=== PATIENT | male | born 1990 | race Native Hawaiian/Other Pacific Islander ===

== ENCOUNTER 2016-08-25 11:17 | Day surgery (SDC) | payer OTHER ==
[2016-08-24 17:49] VITALS: BMI 26.2
[2016-08-25] MEDS ORDERED: HEPARIN NA (PORCINE) 5,000 UNITS/ML 1ML VIAL ONE (12:16)
[2016-08-25] MEDS ORDERED: LIDOCAINE HCL 1%, 10 MG/ML (20ML VIAL) ONE (12:17)
[2016-08-25] MEDS ORDERED: MIDAZOLAM HCL 2 MG/2 ML SINGLE DOSE VIAL ONE ×2 (13:04→13:17)
[2016-08-25] MEDS ORDERED: ONDANSETRON 4 MG/2 ML VIAL IVPUSH PRN (13:17)
[2016-08-25] MEDS ORDERED: ceFAZolin SODIUM 1 GM VIAL IVPB ONE (13:30)
[2016-08-25] MEDS ORDERED: ceFAZolin SODIUM 1 GM VIAL ONE (13:39)
[2016-08-25] MEDS ORDERED: HEPARIN NA (PORCINE) 5,000 UNITS/ML 1ML VIAL SQ ONE (13:44)
[2016-08-25] MEDS ORDERED: LIDOCAINE HCL 1%, 10 MG/ML (20ML VIAL) IJ ONE ×2 (13:44)
--- NOTE | 2016-08-25 14:25 | HP ---
Admitting History and Physical - Admission Chief Complaint: Dermatomyofibrosis needing IVIG - Past Medical History Infectious Disease: Yes: HIV - Smoking History Smoking history: Never smoked Have you smoked in the past 12 months: No - Alcohol/Substance Use Hx Alcohol Use: No Home Medications - Allergies Allergies/Adverse Reactions: Allergies Allergy/AdvReac Type Severity Reaction Status Date / Time No Known Allergies Allergy Verified 08/23/16 12:41 - Home Medications Home Medications: Ambulatory Orders Emtricita/Rilpivirine/Tenof Df [Complera Tablet] 1 tab PO DAILY 08/23/16 Hpr Plus Hydrogel Kit 800 units TD ASDIR 08/23/16 Prednisone [Deltasone -] 20 mg PO DAILY 08/23/16 Methotrexate Sodium [Methotrexate] 20 mg PO WEEKLY 08/24/16 Physical Examination Vital Signs: Vital Signs Temperature 97.8 F 08/25/16 11:46 Pulse Rate 89 08/25/16 11:46 Respiratory Rate 20 08/25/16 11:46 Blood Pressure 137/79 08/25/16 11:46 O2 Sat by Pulse Oximetry (%) 98 08/25/16 11:46 Constitutional: Yes: Well Nourished Eyes: Yes: WNL HENT: Yes: WNL Neck: Yes: WNL Cardiovascular: Yes: WNL Respiratory: Yes: WNL Gastrointestinal: Yes: WNL ...Rectal Exam: Yes: WNL Assessment/Plan Dermatomyofibrosis 1. Pt needs port for IVIG
--- NOTE | 2016-08-25 14:31 | OP ---
Operative Note - Note: Operative Date: 08/25/16 Pre-Operative Diagnosis: Dermatomyositis Operation: Insertion of portacath Post-Operative Diagnosis: Same as Pre-op Surgeon: Aayush Hinds Anesthesia: Fractional Estimated Blood Loss (mls): 20 Operative Report Dictated: Yes
[2016-08-25 14:48] VITALS: TEMP 98.5
[2016-08-25 16:20] VITALS: BP 144/70; PULSE 87
== END 2016-08-25 16:21 | disposition home or self-care (01) ==
LOC: JASU-SURG 11:17
PROVIDERS: ATTEND Surgery Vascular Surgery
PROC: B214YZZ Fluoroscopy of Right Heart using Other Contrast (ICD-10-PCS; 2016-08-25)
PROC: 02H633Z Insertion of Infusion Device into Right Atrium, Percutaneous Approach (ICD-10-PCS; principal; 2016-08-25 13:30)
DX: 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, unspecified, organ involvement unspecified (principal)
CPT/HCPCS: 36558; 77001; C1751; 71010-TC; 76000-TC; 94760; J1644

== ENCOUNTER 2016-09-21 13:37 | Day surgery (SDC) | payer OTHER ==
[2016-09-21] MEDS ORDERED: diphenhydrAMINE HCL 25 MG CAPSULE (FP) PO ONE (15:00)
[2016-09-21] MEDS ORDERED: methylPREDNISolone NA SUCC 125 MG/2 ML VIAL IVPB ONE (15:00)
[2016-09-21] MEDS ORDERED: ACETAMINOPHEN 500 MG TABLET (FP) PO ONE (15:00)
[2016-09-21] MEDS ORDERED: RITUXIMAB 1,000 MG in DEXTROSE 5%-WATER - 400 ML IVPB ONE (15:30)
[2016-09-21 15:31] LABS: BASOPHIL 1.4 % (0-2.0); EOSINOPHIL 2.9 % (0-4.5); MCH 28.1 pg (25.7-33.7); MCHC 33.7 g/dl (32.0-35.9); MEAN CELL VOLUME 83.4 fl (80-96); MEAN PLT VOLUME 9.2 fl (7.5-11.1); NEUTROPHILS 75.5 % (42.8-82.8); PLATELET COUNT 195 K/MM3 (134-434); RDW 13.5 % (11.9-15.9); WHITE BLOOD COUNT 8.8 K/mm3 (4.0-10.0)
[2016-09-21 16:58] LABS: ALK PHOS 80 U/L (45-117); BILIRUBIN,TOTAL 0.4 mg/dL (0.2-1.0); CALCIUM 8.9 mg/dL (8.5-10.1); SGOT/AST 391 U/L (15-37); SGPT/ALT 240 U/L (12-78)
[2016-09-21 17:03] VITALS: BMI 25.7
[2016-09-21 20:18] VITALS: BP 136/76; PULSE 101; TEMP 98.9
[2016-09-21 21:01] LABS: ALBUMIN 3.6 g/dl (3.4-5.0); ANION GAP 13 (8-16); CO2 23 mmol/L (21-32); CREATININE 0.7 mg/dL (0.7-1.3); GLUCOSE,RANDOM 85 mg/dL (74-106); MAGNESIUM 2.3 mg/dL (1.8-2.4)
== END 2016-09-21 21:30 | disposition home or self-care (01) ==
LOC: JINFUSION 13:37 → J7W 13:38 → JINFUSION 21:30
PROVIDERS: ATTEND Internal Medicine Rheumatology
DX: M33.92 Dermatopolymyositis, unspecified with myopathy (principal)
CPT/HCPCS: 96413; 96415; J9310; 36415; 80053; 83735; 84134; 85025; 96367

== ENCOUNTER 2016-10-08 09:17 | Day surgery (SDC) | payer OTHER ==
[2016-10-08] MEDS ORDERED: ACETAMINOPHEN 500 MG TABLET (FP) PO ONE (10:30)
[2016-10-08] MEDS ORDERED: diphenhydrAMINE HCL 25 MG CAPSULE (FP) PO ONE (10:30)
[2016-10-08] MEDS ORDERED: methylPREDNISolone NA SUCC 125 MG/2 ML VIAL IVPB ONE (10:30)
[2016-10-08] MEDS ORDERED: RITUXIMAB 1,000 MG in DEXTROSE 5%-WATER - 400 ML IVPB ONE (11:00)
[2016-10-08 15:21] VITALS: BP 134/67; PULSE 83; TEMP 98.6
== END 2016-10-08 15:24 | disposition home or self-care (01) ==
LOC: JINFUSION 09:17 → J7W 09:18 → JINFUSION 15:24
PROVIDERS: ATTEND Internal Medicine Rheumatology
DX: M33.92 Dermatopolymyositis, unspecified with myopathy (principal)
CPT/HCPCS: 96367; 96413; 96415; J9310

== ENCOUNTER 2017-04-07 07:12 | Day surgery (SDC) | payer OTHER ==
[2017-04-07] MEDS ORDERED: diphenhydrAMINE HCL 25 MG CAPSULE (FP) PO ONE (09:15)
[2017-04-07] MEDS ORDERED: ACETAMINOPHEN 500 MG TABLET (FP) PO ONE ×2 (09:15)
[2017-04-07] MEDS ORDERED: methylPREDNISolone NA SUCC 125 MG/2 ML VIAL IVPUSH ONE (09:15)
[2017-04-07] MEDS ORDERED: RITUXIMAB 1,000 MG in DEXTROSE 5%-WATER - 400 ML IVPB ONE (10:00)
[2017-04-07] MEDS ORDERED: PORTA CATH FLUSH 10 ML IVPUSH PRN (15:28)
[2017-04-07 15:41] VITALS: BP 127/86; PULSE 104
[2017-04-07 16:35] VITALS: TEMP 98
== END 2017-04-07 14:30 | disposition home or self-care (01) ==
LOC: JCHEMO 07:12 → J7W 07:13 → JCHEMO 14:30
PROVIDERS: ATTEND Internal Medicine Rheumatology
DX: M33.92 Dermatopolymyositis, unspecified with myopathy (principal)
CPT/HCPCS: 96367; 96375; 96413; 96415; J9310

== ENCOUNTER 2017-04-21 07:05 | Day surgery (SDC) | payer OTHER ==
[2017-04-21 07:59] LABS: BASOPHIL 1.1 % (0-2.0); EOSINOPHIL 2.6 % (0-4.5); MCH 28.8 pg (25.7-33.7); MCHC 34.3 g/dl (32.0-35.9); MEAN CELL VOLUME 84.1 fl (80-96); MEAN PLT VOLUME 8.4 fl (7.5-11.1); NEUTROPHILS 72.1 % (42.8-82.8); PLATELET COUNT 190 K/MM3 (134-434); RDW 13.2 % (11.9-15.9); WHITE BLOOD COUNT 7.4 K/mm3 (4.0-10.0)
[2017-04-21 08:06] VITALS: TEMP 98.1
[2017-04-21] MEDS ORDERED: ACETAMINOPHEN 500 MG TABLET (FP) PO ONE ×2 (08:15→10:00)
[2017-04-21] MEDS ORDERED: diphenhydrAMINE HCL 25 MG CAPSULE (FP) PO ONE (08:15)
[2017-04-21] MEDS ORDERED: methylPREDNISolone NA SUCC 125 MG/2 ML VIAL IVPB ONE (08:15)
[2017-04-21 08:24] LABS: ALBUMIN 3.6 g/dl (3.4-5.0); ANION GAP 6 (8-16); BILIRUBIN,TOTAL 0.2 mg/dL (0.2-1.0); CALCIUM 8.2 mg/dL (8.5-10.1); CO2 27 mmol/L (21-32); CREATININE 0.8 mg/dL (0.7-1.3); GLUCOSE,RANDOM 99 mg/dL (74-106); MAGNESIUM 2.6 mg/dL (1.8-2.4); SGOT/AST 21 U/L (15-37); SGPT/ALT 38 U/L (12-78); TOT PROT 7.3 g/dl (6.4-8.2)
[2017-04-21 08:26] LABS: ALK PHOS 72 U/L (45-117)
[2017-04-21] MEDS ORDERED: RITUXIMAB 1,000 MG in DEXTROSE 5%-WATER - 400 ML IVPB ONE (09:00)
[2017-04-21] MEDS ORDERED: ACETAMINOPHEN 325 MG TABLET (FP) ONE (09:13)
[2017-04-21] MEDS ORDERED: PORTA CATH FLUSH 10 ML IVPUSH PRN (10:14)
[2017-04-21 14:54] VITALS: BP 148/88; PULSE 107
== END 2017-04-21 12:50 | disposition home or self-care (01) ==
LOC: J7W 07:05 → JCHEMO 07:05
PROVIDERS: ATTEND Internal Medicine Rheumatology
DX: M33.92 Dermatopolymyositis, unspecified with myopathy (principal)
CPT/HCPCS: 36415; 80053; 83735; 84134; 85025; 96367; 96375; 96413; 96415; J9310

== ENCOUNTER 2017-12-30 09:14 | Day surgery (SDC) | payer OTHER ==
[2017-12-30 10:22] LABS: HEMATOCRIT 44.5 % (35.4-49); HEMOGLOBIN 14.8 GM/dL (11.7-16.9); MCH 27.6 pg (25.7-33.7); MCHC 33.2 g/dl (32.0-35.9); MEAN CELL VOLUME 83.2 fl (80-96); MEAN PLT VOLUME 9.3 fl (7.5-11.1); PLATELET COUNT 195 K/MM3 (134-434); RBC 5.35 M/mm3 (4.00-5.60); RDW 13.1 % (11.9-15.9); WHITE BLOOD COUNT 5.3 K/mm3 (4.0-10.0)
[2017-12-30 10:49] LABS: ALBUMIN 3.5 g/dl (3.4-5.0); ALK PHOS 76 U/L (45-117); ANION GAP 11 (8-16); BILIRUBIN,TOTAL 0.3 mg/dL (0.2-1.0); BLOOD UREA NITROGEN 13 mg/dL (7-18); CALCIUM 7.6 mg/dL (8.5-10.1); CHLORIDE 109 mmol/L (98-107); CO2 24 mmol/L (21-32); CREATININE 0.7 mg/dL (0.7-1.3); GLUCOSE,RANDOM 106 mg/dL (74-106); POTASSIUM 3.8 mmol/L (3.5-5.1); SGOT/AST 26 U/L (15-37); SGPT/ALT 41 U/L (12-78); SODIUM 144 mmol/L (136-145); TOT PROT 6.8 g/dl (6.4-8.2)
[2017-12-30] MEDS ORDERED: diphenhydrAMINE HCL 25 MG CAPSULE (FP) PO ONE (11:00)
[2017-12-30] MEDS ORDERED: ACETAMINOPHEN 500 MG TABLET (FP) PO ONE (11:00)
[2017-12-30] MEDS ORDERED: methylPREDNISolone NA SUCC 125 MG/2 ML VIAL IVPB ONE (11:00)
[2017-12-30] MEDS ORDERED: PORTA CATH FLUSH 10 ML IVPUSH ONE (11:21)
[2017-12-30] MEDS ORDERED: RITUXIMAB 1,000 MG in DEXTROSE 5%-WATER - 400 ML IVPB ONE (11:30)
[2017-12-30] MEDS ORDERED: methylPREDNISolone NA SUCC 125 MG/2 ML VIAL IVPUSH ONE (15:15)
[2017-12-30 17:12] VITALS: BP 117/67; PULSE 94; TEMP 98.2
== END 2017-12-30 17:20 | disposition home or self-care (01) ==
LOC: JCHEMO 09:14 → J7W 09:19 → JCHEMO 17:20
PROVIDERS: ATTEND Internal Medicine Rheumatology
DX: M33.92 Dermatopolymyositis, unspecified with myopathy (principal)
CPT/HCPCS: 36415; 80053; 85027; 96375; 96413; 96415; J9310

== ENCOUNTER 2018-08-04 08:51 | Day surgery (SDC) | payer OTHER ==
[2018-08-04] MEDS ORDERED: ACETAMINOPHEN 500 MG TABLET (FP) PO ONE (09:15)
[2018-08-04] MEDS ORDERED: methylPREDNISolone NA SUCC 125 MG/2 ML VIAL IVPB ONE (09:15)
[2018-08-04] MEDS ORDERED: diphenhydrAMINE HCL 25 MG CAPSULE (FP) PO ONE (09:15)
[2018-08-04 09:55] LABS: BASO % 1.2 % (0-2.0); EOS % 4.8 % (0-4.5); HEMATOCRIT 42.6 % (35.4-49); HEMOGLOBIN 14.4 GM/dL (11.7-16.9); LYMPH % 19.9 % (8-40); MCH 28.2 pg (25.7-33.7); MCHC 33.8 g/dl (32.0-35.9); MEAN CELL VOLUME 83.5 fl (80-96); MEAN PLT VOLUME 9.1 fl (7.5-11.1); MONO % 14.2 % (3.8-10.2); NEUT % 59.9 % (42.8-82.8); PLATELET COUNT 188 K/MM3 (134-434); RDW 14.4 % (11.9-15.9); WHITE BLOOD COUNT 4.8 K/mm3 (4.0-10.0)
[2018-08-04] MEDS ORDERED: RITUXIMAB 1,000 MG in DEXTROSE 5%-WATER - 400 ML IVPB ONE (10:00)
[2018-08-04 10:25] LABS: ALK PHOS 94 U/L (45-117); ANION GAP 5 MMOL/L (8-16); BILIRUBIN,TOTAL 0.4 mg/dL (0.2-1); BLOOD UREA NITROGEN 14 mg/dL (7-18); CALCIUM 8.6 mg/dL (8.5-10.1); CHLORIDE 106 mmol/L (98-107); CO2 28 mmol/L (21-32); CREATININE 0.7 mg/dL (0.55-1.3); GLUCOSE,RANDOM 101 mg/dL (74-106); MAGNESIUM 2.4 mg/dL (1.8-2.4); POTASSIUM 4.1 mmol/L (3.5-5.1); PREALBUMIN 29.7 mg/dl (20-40); SGOT/AST 24 U/L (15-37); SGPT/ALT 35 U/L (13-61); SODIUM 139 mmol/L (136-145); TOT PROT 7.4 g/dl (6.4-8.2)
[2018-08-04] MEDS ORDERED: PORTA CATH FLUSH 10 ML IVPUSH ONE ×2 (11:37→17:15)
[2018-08-04] MEDS ORDERED: methylPREDNISolone NA SUCC 125 MG/2 ML VIAL IVPUSH ONE (12:15)
[2018-08-04] MEDS ORDERED: SODIUM CHLORIDE 500 ML IV ONE ×2 (12:15→13:00)
[2018-08-04 17:23] VITALS: BP 134/75; PULSE 113; TEMP 98.5
[2018-08-04] MEDS ORDERED: FAMOTIDINE 20 MG/50 ML IVPB 20 MG/50 ML MG IVPB SCH (22:00)
== END 2018-08-04 19:05 | disposition home or self-care (01) ==
LOC: JCHEMO 08:51 → J7W 08:52 → JCHEMO 19:05
PROVIDERS: ATTEND Internal Medicine Rheumatology
DX: M33.92 Dermatopolymyositis, unspecified with myopathy (principal)
CPT/HCPCS: 36415; 80053; 83735; 84134; 85025; 96375; 96413; 96415; J9312

== ENCOUNTER 2018-08-18 09:20 | Day surgery (SDC) | payer OTHER ==
[~2018-08-18 09:20] MED LIST: ACETAMINOPHEN 500 MG TABLET (FP) PO ONE; DEXAMETHASONE SODIUM PHOSPHATE 20 MG, DIPHENHYDRAMINE 50 MG in SODIUM CHLORIDE 100 ML IVPB ONE
[2018-08-18] MEDS ORDERED: RITUXIMAB 1,000 MG in DEXTROSE 5%-WATER - 400 ML IVPB ONE (09:30)
[2018-08-18 17:30] VITALS: BP 136/69; PULSE 101; TEMP 97.8
== END 2018-08-18 16:30 | disposition home or self-care (01) ==
LOC: JCHEMO 09:20 → J7W 09:21 → JCHEMO 16:30
PROVIDERS: ATTEND Internal Medicine Rheumatology
DX: M33.92 Dermatopolymyositis, unspecified with myopathy (principal)
CPT/HCPCS: 96361; 96367; 96375; 96413; 96415; J9312

== ENCOUNTER 2019-03-02 09:00 | Day surgery (SDC) | payer OTHER ==
[2019-03-02] MEDS ORDERED: ACETAMINOPHEN 500 MG TABLET (FP) PO ONE (10:00)
[2019-03-02 10:13] LABS: HEMOGLOBIN 13.4 GM/dL (11.7-16.9); MCH 28.6 pg (25.7-33.7); MEAN PLT VOLUME 9.1 fl (7.5-11.1); RBC 4.68 M/mm3 (4.00-5.60)
[2019-03-02 10:15] LABS: BASO % 0.6 % (0-2.0); EOS % 2.8 % (0-4.5); HEMATOCRIT 39.6 % (35.4-49); LYMPH % 19.2 % (8-40); MCHC 33.8 g/dl (32.0-35.9); MEAN CELL VOLUME 84.7 fl (80-96); MONO % 8.7 % (3.8-10.2); NEUT % 68.7 % (42.8-82.8); PLATELET COUNT 189 K/MM3 (134-434); RDW 13.8 % (11.9-15.9); WHITE BLOOD COUNT 4.7 K/mm3 (4.0-10.0)
[2019-03-02] MEDS ORDERED: DEXAMETHASONE INJECTION 20 MG, DIPHENHYDRAMINE 50 MG in SODIUM CHLORIDE 100 ML IVPB ONE (10:30)
[2019-03-02 10:50] LABS: ALBUMIN 3.9 g/dl (3.4-5.0); BILIRUBIN,TOTAL 0.5 mg/dL (0.2-1); BLOOD UREA NITROGEN 13.4 mg/dL (7-18); CALCIUM 8.8 mg/dL (8.5-10.1); CREATININE 0.8 mg/dL (0.55-1.3); MAGNESIUM 2.3 mg/dL (1.8-2.4); POTASSIUM 3.7 mmol/L (3.5-5.1); PREALBUMIN 22.7 mg/dl (20-40); TOT PROT 6.8 g/dl (6.4-8.2)
[2019-03-02] MEDS ORDERED: RITUXIMAB 1,000 MG in DEXTROSE 5%-WATER - 400 ML IVPB ONE (11:00)
[2019-03-02 13:51] VITALS: TEMP 98
[2019-03-02] MEDS ORDERED: PORTA CATH FLUSH 10 ML IVPUSH ONE ×2 (13:52→15:54)
[2019-03-02 15:54] VITALS: BP 140/69; PULSE 90
== END 2019-03-02 16:00 | disposition home or self-care (01) ==
LOC: JCHEMO 09:00 → J7W 09:02 → JCHEMO 16:00
PROVIDERS: ATTEND Internal Medicine Rheumatology
DX: M33.92 Dermatopolymyositis, unspecified with myopathy (principal)
CPT/HCPCS: 36415; 80053; 83735; 84134; 85025; 96367; 96375; 96413; 96415; J9312

== ENCOUNTER 2019-03-19 08:08 | Day surgery (SDC) | payer OTHER ==
[2019-03-19] MEDS ORDERED: ACETAMINOPHEN 500 MG TABLET (FP) PO ONE (09:00)
[2019-03-19] MEDS ORDERED: DEXAMETHASONE INJECTION 20 MG, DIPHENHYDRAMINE 50 MG in SODIUM CHLORIDE 100 ML IVPB ONE (09:00)
[2019-03-19] MEDS ORDERED: RITUXIMAB 1,000 MG in DEXTROSE 5%-WATER - 400 ML IVPB ONE (09:30)
[2019-03-19 09:51] VITALS: TEMP 98.6
[2019-03-19 14:19] VITALS: BP 139/82; PULSE 101
== END 2019-03-19 14:44 | disposition home or self-care (01) ==
LOC: JCHEMO 08:08 → J7W 08:12 → JCHEMO 14:44
PROVIDERS: ATTEND Internal Medicine Rheumatology
DX: M33.92 Dermatopolymyositis, unspecified with myopathy (principal)
CPT/HCPCS: 96367; 96375; 96413; 96415; J1100; J9312

== ENCOUNTER 2020-03-17 08:56 | Day surgery (SDC) | payer OTHER ==
--- OUTSIDE RECORDS SUMMARY | 2020-03-17 09:22 | XMS ---
:1990 Author Organization [facility] Care Team Providers Name Role Phone ArtierubenskieraDiego espino Unavailable Unavailable Dylon Orta Unavailable Unavailable PRAFF, BRUNA Unavailable Unavailable Cherrie Luna Unavailable Unavailable Dorina Graves MD Unavailable Unavailable Maximiliano Graves MD Unavailable Unavailable Maximiilano Graves MD Unavailable Unavailable Maximiliano Graves MD Unavailable Unavailable MD Ebnoy Unavailable Unavailable MD Ebony Unavailable Unavailable MD Ebony Unavailable Unavailable MD Ebony Unavailable Unavailable Eng Unavailable Unavailable Other Unavailable Unavailable Radha JERNIGAN Unavailable Unavailable MD Kalie Unavailable Unavailable MD Joleen Unavailable Unavailable MD Joleen Unavailable Unavailable MD Joleen Unavailable Unavailable MD Joleen Unavailable Unavailable MD Joleen Unavailable Unavailable MD Joleen Unavailable Unavailable MD Joleen Unavailable Unavailable MD Joleen Unavailable Unavailable MD Joleen Unavailable Unavailable MD Joleen Unavailable Unavailable MD Joleen Unavailable Unavailable MD Joleen Unavailable Unavailable MD Joleen Unavailable Unavailable MD Joleen Unavailable Unavailable MD Joleen Unavailable Unavailable MD Tyler Unavailable Unavailable MD Tyler Unavailable Unavailable MD Tyler Unavailable Unavailable MD Tyler Unavailable Unavailable MD Tyler Unavailable Unavailable Re-disclosure Warning The records that you are about to access may contain information from federally- assisted alcohol or drug abuse programs. If such information is present, then the following federally mandated warning applies: This information has been disclosed to you from records protected by federal confidentiality rules (42 CFR part 2). The federal rules prohibit you from making any further disclosure of this information unless further disclosure is expressly permitted by the written consent of the person to whom it pertains or as otherwise permitted by 42 CFR part 2. A general authorization for the release of medical or other information is NOT sufficient for this purpose. The Federal rules restrict any use of the information to criminally investigate or prosecute any alcohol or drug abuse patient.The records that you are about to access may contain highly sensitive health information, the redisclosure of which is protected by Article 27-F of the [facility] Public Health law. If you continue you may haveaccess to information: Regarding HIV / AIDS; Provided by facilities licensed or operated by the [facility] Office of Mental Health; or Provided by the [facility] Office for People With Developmental Disabilities. If such information is present, then the following [facility] mandated warning applies: This information has been disclosed to you from confidential records which are protected by state law. State law prohibits you from making any further disclosure of this information without the specific written consent of the person to whom it pertains, or as otherwise permitted by law. Any unauthorized further disclosure in violation of state law may result in a fine or skilled nursing sentence or both. A general authorization for the release of medical or other information is NOT sufficient authorization for further disclosure. Encounters Encounter Providers Location Date Indications Data Source(s ) Outpatient Attender: Cherrie NUR 03/11/2020 [facility] 04:27:59 PM Hospital EDT Outpatient Attender: Cherrie NUR 03/05/2020 [facility] 10:22:00 AM Hospital EDT Admission cancelled. Disregard status an d admitted date. Outpatient Attender: Cherrie NUR 02/27/2020 09:09:00 AM [facility] EDT - 02/27/2020 Hospital 11:59:00 PM EDT Patient discharged. Outpatient Attender: Cherrie NUR 02/19[facility]2020 [facility]29[facility] 11:59:00 PM EDT Patient discharged. [facility] Hospital 11:59:00 PM EDT Patient discharged. Emergency Attender: Willy ICU-EMERG 02/09/2020 CHEST S - Ne javi Scott MDAttender: 07:02:00 PM EDT HEAVINESS/ARMS AND Lali Doctor Other - 02/09/2020 [facility]GS [facility] Hospital 08:25:00 PM EDT CHEST HEAVINESS/ARMS AND LEGS PAIN Patient discharged. [facility]07[facility]2020 08:50:00 AM [facility] 02/07/2020 Hospital 11:59:00 PM EDT Patient discharged. Outpatient Attender: Cherrie [address] [place] [address] 02/06/2020 08:46:00 AM [facility] Hospital Admission cancelled. Disregard status an d admitted date. Outpatient Attender: Cherrie [address] [place] [address] 01/30/2020 02:50:00 PM [facility] 01/30/2020 Hospital 11:59:00 PM EDT Patient discharged. [facility] 01/22[facility]2020 01:23:06 PM [facility] 01/23/2020 [facility] 11:59:00 PM EDT Patient discharged. [facility]16[facility]2020 08:53:00 [facility] Hospital 11:59:00 PM EDT Patient discharged. Outpatient Attender: Cherrie [address] [place] [address] 01/09/2020 08:49:00 AM [facility] 01/09/2020 Hospital 11:59:00 PM EDT Patient discharged. Outpatient Attender: Cherrie [address] [place] [address] 01/02/2020 09:16:00 AM [facility] - 01/02/2020 Hospital 11:59:00 PM EDT Patient discharged. [facility] 01/01/2020 09:02:00 AM [facility] Hospital Admission cancelled. Disregard status an d admitted date. Outpatient Attender: Cherrie LemusSWICMV 12/24/2019 [facility]11:[facility] [place] [facility] Hospital 11:59:00 PM EDT Patient discharged. [facility] 10[facility]37[facility] - 12/18/2019 Hospital 11:59:00 PM EDT Patient discharged. Outpatient Attender: Cherrie LemusSWICMV 12/04/2019 09:19:00 AM [facility] EDT - 12/04/2019 Hospital 11:59:00 PM EDT Patient discharged. Outpatient Attender: Cherrie LemusSW CL 11/27/2019 09:34:00 AM [facility] EDT - 11/27/2019 Hospital 11:59:00 PM EDT Patient discharged. Outpatient Attender: Sharath LemusMED CL 11/19/2019 10:14:00 AM Shmuel Goodrich MD EDT - 11/19/2019 Hospita l 11:59:00 PM EDT Patient discharged. Emergency Attender: Aaliyah ICU-EMERG 11/11/2019 CHEST DISCOMFORT [facility] EngAttender: Doctor 07:22:00 PM EDT Lali Other - 11/11/2019 Hospital 10:02:00 PM EDT CHEST DISCOMFORT Patient discharged. Outpatient Attender: Sharath LemusLABCLNMV 08/08/2019 02:14:00 [facility] Randy Goodrich MD PM EST - 08/08/2019 Hosp ital 11:59:00 PM EST Patient discharged. Emergency Attender: Dorina ICU-EMERG 08/06/2019 DIZZY/ HEART [facility] Paul Graves MDAttender: 03:39:00 PM EST - PALP R reginaldo Doctor Other 08/06/2019 Hospital 05:12:00 PM EST DIZZY/ HEART PALP Patient discharged. Outpatient Attender: [id number] 07/16/2019 [facility] RERE, 08:33:00 AM EST Health Care RAdmitter: [id number] Radha Spence Outpatient Attender: MAU [facility] LE[facility]N 07:43:00 AM [facility] Outpatient Attender: Sharath Goodrich MD 5T-LABCL 07/05/2019 S - Audi Franks NMV 03:02:00 PM EST - Hospita l 07/05/2019 11:59:00 PM EST Patient discharged. Emergency Attender: Toni ICU-EMERG 07/04/2019 LIGHTHEADED [facility] - Win Beck MDAttender: 09:31:00 PM EST - [place] Doctor Other 07/05/2019 Hospital 01:18:00 AM EST LIGHTHEADED Patient discharged. Outpatient Attender: MAU, [facility]: Dylon ICU-JONY 06/25/2019 PANIC [facility] - Gabbie ShresthaattAttender: RG 11:07:00 AM EST - ATTACK/EM PRE [facility] Doctor Other 06/25/2019 SS 01:45:00 PM EST PANIC ATTACK/EMPRESS Patient discharged. Outpatient Attender: [id number] 06/11/2019 [facility] RERE, 08:24:00 AM [facility] RAdmitter: [id number] CorporRadha Butterfield Outpatient Attender: MD Gallagher ICU-LAB 02/27/2019 S Randy Arthur 04:47:00 PM EDT - Hospita l 02/27/2019 11:59:00 PM EDT Patient discharged. Outpatient Attender: MD Gallagher ICU-LAB 11/28/2018 04:14:00 PM S - Paul Arthur EDT - 11/28/2018 Hospital 11:59:00 PM EDT Patient discharged. Emergency Attender: ICU-EMERG 10/28/2018 HEAD INJURY/EMPRESS S Randy Vela 03:57:00 PM EDT Roch sonam - 10/28/2018 Hospital 06:39:00 PM EDT HEAD INJURY/EMPRESS Immunizations Vaccine Date Status Description Data Source(s) New in 04/21/2017 completed influenza, injectable, quadrivalent On: Site: Entire left upper arm (body structure) Jeanie 2013. 12:00:00 AM Lot #: [id number], [employer] 21-Apr-2017 [facility] IIV4 EDT Comments: Vaccine administered as per dr orders. Pt waited 20 min w/o any s/s of adverse reaction. Vis sheet given to pt advised to return is any s/s of adverse reacton develop. pt verbalized benjamin vasquez pneumococcal 12/30/2014 completed <td><content styleCode="xContentWrapping"><content [facility] polysaccharide 12:00:00 AM [id number]">pneumococcal Health PPV23 EDT polysaccharide PPV23</conten t>
<content styleCode="xLabel System xSecondary">Lot #: </content ><content styleCode="xSecondary">[id number]</content><content styleCode="xSecondary">, [employer]content>
</content ></td><td><content styleCode="xLabel">On: </con tent><content styleCode="xSecondary"></content></td><td><content styleCode="xLabel xSecondary ">Site: </content><content styleCode="xSecondary">Delto id region structure (body structure)</content></td> Medications Medication Brand Start Product Dose Route Administrative Pharmacy [facility] Indications Reaction Description Data Name Date Form Instructions Instructions Source(s) [facility] [id number] active Odefs ey [facility] ne/rilpivir 14850 2019 {tab( Health ine/tenofov 04:56: s)} System ir 11 PM alafenamide EDT 200 mg-25 mg-25 mg oral tablet Check with your doctor before becoming p regnant.Do not take dairy products, antacids, or iron preparations within one hour of this medication.It is very important that you take or use this exactly as directed. D o not skip doses or discontinue unless directed by your doctor.Obtain medical a dvice before taking any non-prescription drugs as some may affect the action of t his medication.Store this medication in the original package.Take with food. Escitalopram escitalopram 08/08/2019 1 [id number] active Escitalopram [facility] 10 MG Oral 10 mg oral 03:54:35 PM {tab(s)} [facility] Tablet tablet EST System escitalopram 10 mg oral tablet Check with your doctor before becoming p regnant.It is very important that you take or use this exactly as directed. Do not sk ip doses or discontinue unless directed by your doctor.May cause drowsiness. Alcoh ol may intensify this effect. Use care when operating dangerous machinery.Obtain med ica advice before taking any non-prescription drugs as some may affec t the action of this medication.This drug may impair the ability to drive or operate [employer]. Use care until you become familiar with its effects. Lorazepam Ativan 08/06/2019 1 {tab(s)} [id number] active Ativan [facility] 0.5 MG Oral 0.5 mg 05:21:03 PM Health Tablet oral EST System [Ativan] tablet Ativan 0.5 mg oral tablet Caution federal law prohibits the transf er of this drug to any person other than the person for whom it was prescribed.Do not take this drug if you are .May cause drowsiness or dizziness. emtricitabine/rilpivirine/tenofovir [id number] 07/06/2019 1 C38 288 active Odefsey [facility] alafenamide 200 mg-25 mg-25 mg oral 02:40:06 PM {tab(s)} Health tablet EST System Check with your doctor before becoming p regnant.Do not take dairy products, antacids, or iron preparations within one hour of this medication.It is very important that you take or use this exactly as directed. D o not skip doses or discontinue unless directed by your doctor.Obtain medical a dvice before taking any non-prescription drugs as some may affect the action of t his medication.Store this medication in the original package.Take with food. emtricitabine/rilpivirine/tenofovir [id number] 07/06/2019 1 C38 288 active Odefsey [facility] alafenamide 200 mg-25 mg-25 mg oral 02:40:06 PM {tab(s)} Health tablet EST System Check with your doctor before becoming p regnant.Do not take dairy products, antacids, or iron preparations within one hour of this medication.It is very important that you take or use this exactly as directed. D o not skip doses or discontinue unless directed by your doctor.Obtain medical a dvice before taking any non-prescription drugs as some may affect the action of t his medication.Store this medication in the original package.Take with food. Meclizine meclizine 07/05/2019 1 [id number] active Meclizine [facility] Hydrochloride 25 mg oral 12:45:25 AM {tab(s)} Hydrochloride Health 25 MG Oral tablet EST System Tablet meclizine 25 mg oral tablet May cause drowsiness. Alcohol may inten sify this effect. Use care when operating dangerous machinery. Meclizine meclizine 07/05/2019 1 [id number] active Meclizine [facility] Hydrochloride 25 mg oral 12:45:25 AM {tab(s)} Hydrochloride Health 25 MG Oral tablet EST System Tablet meclizine 25 mg oral tablet May cause drowsiness. Alcohol may inten sify this effect. Use care when operating dangerous machinery. emtricitabine/rilpivirine/tenofovir [id number] 01/15/2019 1 C38 288 active Odefsey [facility] alafenamide 200 mg-25 mg-25 mg oral 09:02:30 AM {tab(s)} Health tablet EDT System Check with your doctor before becoming p regnant.Do not take dairy products, antacids, or iron preparations within one hour of this medication.It is very important that you take or use this exactly as directed. D o not skip doses or discontinue unless directed by your doctor.Obtain medical a dvice before taking any non-prescription drugs as some may affect the action of t his medication.Store this medication in the original package.Take with food. Ibuprofen IBU 800 10/28/2018 1 {tab(s)} [id number] active IBU [facility] 800 MG Oral mg oral 06:34:48 PM Health Tablet [Ibu] tablet EDT Syste m IBU 800 mg oral tablet Do not take this drug if you are pregnan t.It is very important that you take or use this exactly as directed. Do not skip d oses or discontinue unless directed by your doctor.May cause drowsiness or dizziness .Obtain medical advice before taking any non-prescription drugs as some may affec t the action of this medication.Take with food or milk. emtricitabine 200 MG / Rilpivirine emtricitabine/rilpivirine /tenofovir 06/16/2018 1 [id number] aborted Complera [facility] 25 MG / Tenofovir disoproxil disoproxil 200 mg-25 mg-300 mg oral 05 :15:33 PM {tab(s)} Health fumarate 300 MG Oral Tablet tablet EST System emtricitabine/rilpivirine/tenofovir disoproxil 200 mg-25 mg-300 mg oral tablet Check with your doctor before becoming p regnant.Do not take dairy products, antacids, or iron preparations within one hour of this medication.It is very important that you take or use this exactly as directed. D o not skip doses or discontinue unless directed by your doctor.Obtain medical a dvice before taking any non-prescription drugs as some may affect the action of t his medication.Take with food. emtricitabine 200 MG / Rilpivirine emtricitabine/rilpivirine /tenofovir 06/16/2018 1 [id number] completed Complera [facility] 25 MG / Tenofovir disoproxil disoproxil 200 mg-25 mg-300 mg oral 05 :15:33 PM {tab(s)} Health fumarate 300 MG Oral Tablet tablet EST System emtricitabine/rilpivirine/tenofovir disoproxil 200 mg-25 mg-300 mg oral tablet Check with your doctor before becoming p regnant.Do not take dairy products, antacids, or iron preparations within one hour of this medication.It is very important that you take or use this exactly as directed. D o not skip doses or discontinue unless directed by your doctor.Obtain medical a dvice before taking any non-prescription drugs as some may affect the action of t his medication.Take with food. emtricitabine 200 MG / Rilpivirine emtricitabine/rilpivirine /tenofovir 06/16/2018 TABLET 1 ORAL completed [facility] 25 MG / Tenofovir disoproxil disoproxil 200 mg-25 mg-300 mg oral 05 :15:33 PM {tab(s)} Health fumarate 300 MG Oral Tablet tablet EST System emtricitabine/rilpivirine/tenofovir disoproxil 200 mg-25 mg-300 mg oral tablet Check with your doctor before becoming p regnant.Do not take dairy products, antacids, or iron preparations within one hour of this medication.It is very important that you take or use this exactly as directed. D o not skip doses or discontinue unless directed by your doctor.Obtain medical a dvice before taking any non-prescription drugs as some may affect the action of t his medication.Take with food. 4 ML Bicillin L-A 04/21/2018 1.2 [id number] completed Bicillin L-A 2,400,000 units/4 mL intramuscular suspension; 1.2 million unit(s) intramuscularly once a week Ordered: 21-Apr-2018 Start: 21-Apr-2018 End: 11-May-2018 [facility] patience penicillin G 2,400,000 09:11:49 AM MU Quantity: 3 Elliott Arthur Status: No Longer Active Health benzathine units/4 mL EDT Refills: 0 Generic Substitution Allowed System [id number] UNT/ML intramuscular Prefilled suspension Syringe [Bicillin L-A] Bicillin L-A 2,400,000 units/4 mL intramuscular suspension Shake well before use. valacyclovir valACYclovir 12/14/2017 1 [id number] completed Valacyclovir [facility] 1000 MG Oral 1 g oral 04:36:37 PM {tab(s)} Hydrochloride Health Tablet tablet EDT System valACYclovir 1 g oral tablet It is very important that you take or us e this exactly as directed. Do not skip doses or discontinue unless directed by your doctor. valacyclovir valACYclovir 12/14/2017 TABLET 1 ORAL completed [facility] 1000 MG Oral 1 g oral 04:36:37 PM {tab(s)} Health Tablet tablet EDT System valACYclovir 1 g oral tablet It is very important that you take or us e this exactly as directed. Do not skip doses or discontinue unless directed by your doctor. pneumococcal [id number] 09/22/2017 0.5 active pneumococcal 23-polyvalent vaccine injectable solution; 0.5 milliliter(s) intramuscularly once a day Ordered: 18-Apr-2018 Start: 22-Sep-2017 End: 18-Apr-2018 [facility] 23-polyvalent 10:36:28 AM mL John tity: 1 Elliott Arthur Health vaccine EDT Refills: 0 System injectable solution FluLaval [id number] 04/20/2017 0.5 C active FluLaval Quadrivalent 2017 ntramuscular suspension; 0.5 milliliter(s) intramuscularly once a day Ordered: 20-Apr-2017 Start: 20-Apr-2017 End: 21-Apr-2017 [facility] Quadrivalent 11:04:19 AM mL 2 Quant ity: 1 Elliott Arthur Generic Substitution Allowed Health EDT 8 Refills: 0 System ntramuscular 1 suspension 6 1 Check with your doctor before becoming .Expires Refrigerate and shake well. Expires valacyclovir Valtrex 04/20/2017 1 {tab(s)} [id number] aborted Valtrex [facility] 500 MG Oral 500 mg 10:54:48 AM Health Tablet oral EDT System [Valtrex] tablet Valtrex 500 mg oral tablet It is very important that you take or us e this exactly as directed. Do not skip doses or discontinue unless directed by your doctor. Sulfamethoxazole 800 MG / sulfamethoxazole-trimethoprim 04/20/2017 1 [id number] active Sulfamethoxazole-Trimethoprim [facility] Trimethoprim 160 MG Oral 800 mg-160 mg oral tablet 10:53:51 AM {tab( s)} DS Health Tablet EDT System sulfamethoxazole-trimethoprim 800 mg-160 mg oral tablet Avoid prolonged or excessive exposure to direct and/or artificial sunlight while taking this medication.Finish all this m edication unless otherwise directed by prescriber.Medication should be taken wi th plenty of water. Sulfamethoxazole 800 MG / sulfamethoxazole-trimethoprim 04/20/2017 TA BLET 1 ORAL completed [facility] Trimethoprim 160 MG Oral 800 mg-160 mg oral tablet 10:53:51 AM {tab(s) } Health Tablet EDT System sulfamethoxazole-trimethoprim 800 mg-160 mg oral tablet Avoid prolonged or excessive exposure to direct and/or artificial sunlight while taking this medication.Finish all this m edication unless otherwise directed by prescriber.Medication should be taken wi th plenty of water. emtricitabine 200 MG / Rilpivirine emtricitabine/rilpivirine /tenofovir 09/27/2016 1 [id number] aborted Complera [facility] 25 MG / Tenofovir disoproxil 200 mg-25 mg-300 mg oral tablet 10:35: 35 AM {tab(s)} Health fumarate 300 MG Oral Tablet EDT System emtricitabine/rilpivirine/tenofovir 200 mg-25 mg-300 mg oral tablet Check with your doctor before becoming p regnant.Do not take dairy products, antacids, or iron preparations within one hour of this medication.It is very important that you take or use this exactly as directed. D o not skip doses or discontinue unless directed by your doctor.Obtain medical a dvice before taking any non-prescription drugs as some may affect the action of t his medication.Take with food. Folic Acid folic acid 09/27/2016 1 [id number] active Folic Acid [facility] 1 MG Oral 1 mg oral 10:35:17 AM {tab(s)} Health Tablet tablet EDT System folic acid 1 mg oral tablet Acyclovir acyclovir 09/23/2016 1 [id number] aborted Acyclovir [facility] 400 MG Oral 400 mg oral 02:02:53 PM {tab(s)} Health Tablet tablet EDT System acyclovir 400 mg oral tablet Finish all this medication unless otherw ise directed by prescriber.It is very important that you take or use this exac tly as directed. Do not skip doses or discontinue unless directed by your doct or. emtricitabine 200 MG / Rilpivirine emtricitabine/rilpivirine /tenofovir 11/04/2015 0 [id number] completed Complera [facility] 25 MG / Tenofovir disoproxil 200 mg-25 mg-300 mg oral tablet 10:18: 28 AM {tab(s)} Health fumarate 300 MG Oral Tablet EDT System emtricitabine/rilpivirine/tenofovir 200 mg-25 mg-300 mg oral tablet Acyclovir 400 MG Oral Tablet acyclovir 400 mg oral tablet 07/28/2015 1 [id number] aborted Acyclovir [facility] acyclovir 400 mg oral tablet 10:02:56 AM {tab(s)} Health EST System Finish all this medication unless otherw ise directed by prescriber.It is very important that you take or use this exac tly as directed. Do not skip doses or discontinue unless directed by your doct or. Sulfamethoxazole Bactrim 07/28/2015 1 [id number] aborted Bactrim DS 800 mg-160 mg oral tablet; 1 tab(s) orally every other day Ordered: 27-Sep-2016 Start: 28-Jul-2015 End: 25-Mar-2017 [facility] 800 MG / DS 800 10:00:01 AM {tab(s)} Billy ntity: 15 Elliott Arthur Status: Discontinued Health Trimethoprim 160 mg-160 EST Refill s: 5 System MG Oral Tablet mg oral [Bactrim] Bactrim tablet DS 800 mg-160 mg oral tablet methotrexate 25 [id number] 02/10/2015 1 mL complete methotrexate 25 mg/mL injectable solution; 1 milliliter(s) injectable once a week Ordered: 10-Feb-2015 Start: 10-Feb-2015 End: 09-Jun-2015 [facility] mg/mL injectable 900 03:05:02 PM d Q uantity: 4 Jose Juan Santos Status: No Longer Active Health solution EDT Refills: 3 Generic Substitution Allowed System Do not take this drug if you are pregnan t. Sulfamethoxazole 800 MG / SULFAMETHOXAZOLE-TRIMETHOPRIM 02/03/2015 0 [id number] completed Sulfamethoxazole-Trimethoprim [facility] Trimethoprim 160 MG Oral 800-160 MG TABLET 12:34:10 PM {ea} DS Health Tablet EDT System SULFAMETHOXAZOLE-TRIMETHOPRIM 800-160 MG TABLET Methotrexate 2.5 MG Oral methotrexate 2.5 mg oral 01/13/2015 10 [id number] aborted Methotrexate Sodium [facility] Tablet methotrexate 2.5 mg tablet 03:30:54 PM {tab( Health oral tablet EDT s)} System Avoid prolonged or excessive exposure to direct and/or artificial sunlight while taking this medication.Do not drink alco holic beverages when taking this medication.Do not take this drug if you are .It is very important that you take or use this exactly as directed. D o not skip doses or discontinue unless directed by your doctor.Obtain medical a dvice before taking any non-prescription drugs as some may affect the action of t his medication. Ibuprofen IBU 400 12/30/2014 1 [id number] aborted IBU 400 mg oral tablet; 1 tab(s) orally every 8 hours, As needed, Moderate Pain (4-6) Ordered: 30-Dec-2014 Start: 30-Dec-2014 [facility] 400 MG mg oral 12:00:00 AM {tab(s)} John tity: 0 Clemente, Russell Status: Discontinued Health Oral tablet EDT Refills: 0 System Tablet [Ibu] IBU 400 mg oral tablet Prednisone predniS 12/30/2014 3 [id number] active predniSONE 20 mg oral tablet; 3 tab(s) orally once a day Ordered: 30-Dec-2014 Start: 30-Dec-2014 [facility] 20 MG Oral ONE 20 12:00:00 AM {tab(s)} Q uantity: 0 Clemente, Russell Health Tablet mg oral EDT Refills: 0 System predniSONE tablet 20 mg oral tablet emtricitabine 200 MG / Rilpivirine emtricitabine/rilpivirine /tenofovir 11/07/2014 1 [id number] completed [facility] 25 MG / Tenofovir disoproxil 200 mg-25 mg-300 mg oral tablet 10:07: 53 AM {tab(s)} Health fumarate 300 MG Oral Tablet EDT System emtricitabine/rilpivirine/tenofovir 200 mg-25 mg-300 mg oral tablet Check with your doctor before becoming p regnant.Do not take dairy products, antacids, or iron preparations within one hour of this medication.It is very important that you take or use this exactly as directed. D o not skip doses or discontinue unless directed by your doctor.Obtain medical a dvice before taking any non-prescription drugs as some may affect the action of t his medication.Take with food. isoniazid 300 ISONIAZID 10/05/2014 0 [id number] completed Isoniazid [facility] MG Oral Tablet 300 MG 03:09:11 PM {ea} Health ISONIAZID 300 TABLET EDT Syst em MG TABLET emtricitabine COMPLERA 09/28/2014 0 [id number] completed Complera [facility] 200 MG / 200-25-300 11:18:09 AM {ea} Health Rilpivirine 25 TABLET EDT Sys tem MG / Tenofovir disoproxil fumarate 300 MG Oral Tablet COMPLERA 200-25-300 TABLET Meclizine Antivert 09/30/2012 1 [id number] completed Antivert 25 mg oral tablet; 1 cap(s) orally 3 times a day x 3 days as needed for CONSTIPATION Ordered: 30-Sep-2012 Start: 30-Sep-2012 End: 02-Oct-2012 [facility] Hydrochloride 25 mg 04:56:58 PM {cap(s)} Quantity: 9 Magdaleno Sellers Status: Completed Health 25 MG Oral oral EDT Refills: 0 Generic Substitution Allowed System Tablet tablet Antivert 25 mg oral tablet May cause drowsiness. Alcohol may inten sify this effect. Use care when operating dangerous machinery. Insurance Providers Payer name Policy type / Policy ID Covered Covered Policy Plan Coverage type libertarian ID libertarian's Bryant Inform ation relationship to bryant [facility] Medicaid Medicaid [id number] 1 [id number] [facility] Medicaid [id number] 1 [id number] [id number] Medicaid Medicaid [id number] [facility] MEDICAID [id number] [facility] Medicaid Medicaid [id number] 1 [id number] [facility] Medicaid [id number] 1 [id number] 72A Medicaid Medicaid [id number] [facility] Medicaid [id number] 1 [id number] [facility] Health Plan Commercial [id number] 1 [id number] Inc [facility] Health Plan Commercial [id number] 1 [id number] Inc Self Pay Self Pay 1 [facility] Medicaid [id number] 1 [id number] Fin Assist Fee Self Pay 1 Code 1 Self Pay Self Pay 1 [facility] Medicaid [id number] 1 [id number] Fin Assist Fee Self Pay 1 Code 1 Workers' Commercial [id number] Compensation Problems, Conditions, and Diagnoses Code Display Name Description Problem Type Effective Data Sour ce(s) Dates F41.1 Generalized anxiety Generalized anxiety 04024-2 020 [facility] disorder with panic disorder with panic 12:00:0 0 AM Health System attacks attacks EST M33.90 Dermatomyositis Dermatomyositis 51346-2 07/06/2019 [facility] 12:00:00 AM Health System EST Z21 Asymptomatic human Asymptomatic human 49062-2 0 [facility] immunodeficiency immunodeficiency 12:00:[facility] virus infection virus infection EST F41.1 Generalized anxiety Generalized anxiety Diagnosis 020 S - [facility] disorder disorder with panic 11:02:00 AM David on attacks EDT Hospital 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, Dermatomyositis Diagnosis 03/12/2020 S - [facility] unspecified, organ 11:02:00 AM Verno n involvement ED Hospital unspecified Z21 Asymptomatic human Asymptomatic human Diagnosis 0 [facility] [place] immunodeficiency immunodeficiency 11:02:00 AM V abbey virus [HIV] virus infection EDT Hospital infection status F41.1 Generalized anxiety Generalized anxiety Diagnosis 020 [facility] - [facility] disorder disorder with panic 07:02:00 PM Roch sonam attacks [facility] Hospital 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, Dermatomyositis Diagnosis 02/09/2020 S - New unspecified, organ 07:02:00 PM Raman lle involvement EDT Hospital unspecified CHEST HEAVINESS/ARMS CHEST Diagnosis 02/09/2020 S - New AND LEGS PAIN HEAVINESS/ARMS AND 07:02:00 PM Ro mireya LEGS PAIN EDT Hospital Z21 Asymptomatic human Asymptomatic human Diagnosis 0 [facility] - [facility] immunodeficiency immunodeficiency 07:02:00 PM R ochelle virus [HIV] virus infection EDT Hospital infection status I77.6 Arteritis, Arteritis Diagnosis 02/09/2020 S - New unspecified 07:02:00 PM [facility] M33.10 Other Other Diagnosis 11/11/2019 S - New dermatomyositis, dermatomyositis, 07:22:00 PM R [place]le organ involvement organ involvement EDT Hospital unspecified unspecified R07.89 Other chest pain Other chest pain Diagnosis 11/11/2019 S - New 07:22:00 PM [facility] B20 Human HIV disease Diagnosis 11/11/2019 S - New immunodeficiency 07:22:00 PM [facility] e virus [HIV] disease EDT Hospi loree CHEST DISCOMFORT CHEST DISCOMFORT Diagnosis 11/11/2019 S - New 07:22:00 PM [facility] F41.9 Anxiety disorder, Anxiety disorder Diagnosis 11/11/2019 M HS - [facility] unspecified 07:22:00 PM [facility] F41.9 Anxiety disorder, Anxiety disorder Diagnosis 08/08/2019 [facility] [place] unspecified 02:14:00 PM [facility] F32.9 Major depressive Major depressive Diagnosis 08/06/2019 S - New disorder, single disorder with 03:39:00 PM Latisha masters episode, unspecified single episode [facility] DIZZY/ HEART PALP DIZZY/ HEART PALP Diagnosis 08/06/2019 S - New 03:39:00 PM [facility] Z13.84 Encounter for ENCOUNTER FOR Diagnosis 07/16/2019 [facility] screening for dental SCREENING FOR 08:33:00 AM [facility] disorders DENTAL DISORDERS EST Care [facility] K05.10 Chronic gingivitis, CHRONIC GINGIVITIS, Diagnosis 020 [facility] plaque induced PLAQUE INDUCED 07:43:00 AM Count y Health EST [facility] R42 Dizziness and Vertigo Diagnosis 07/05/2019 [facility] - [place] 03:02:00 PM [facility] B20 Human HIV infection Diagnosis 07/05/2019 [facility] - [facility] immunodeficiency 12:00:00 AM [place] virus [HIV] disease EST Hospi loree LIGHTHEADED LIGHTHEADED Diagnosis 07/04/2019 S - New 09:31:00 PM [facility] R42 Dizziness and Dizziness and Diagnosis 07/04/2019 [facility] - Ne w giddiness giddiness 09:31:00 PM [facility] Z21 Asymptomatic human ASYMPTOMATIC HUMAN Diagnosis 0 [facility] immunodeficiency IMMUNODEFICIENCY 08:59:00 AM [facility] virus [HIV] VIRUS INFECTION EST [facility] infection status STATUS Corporat ion Z01.20 Encounter for dental ENCOUNTER FOR Diagnosis 07/02/2019 [facility] examination and DENTAL EXAM AND 08:59:00 AM [facility] cleaning without CLEANING W/O EST [facility] abnormal findings ABNORMAL FINDINGS [facility] R20.2 Paresthesia of skin Paresthesia Diagnosis 06/25/2019 S - New 11:07:00 AM [facility] PANIC ATTACK/EMPRESS PANIC Diagnosis 06/25/2019 S - New ATTACK/EMPRESS 11:07:00 AM [facility] Y92.512 Supermarket, store Supermarket, store, Diagnosis 10/29/19 19 [facility] - [facility] or market as the or market as place 03:57:[address] [place] [address] of occurrence of occurrence of EDT Hospital of the external external cause cause W22.8XXA Striking against or Striking against or Diagnosis 019 [facility] - New struck by other struck by other 03:57:00 PM Artie helle objects, initial objects, initial EDT Ho spital encounter encounter S13.8XXA Sprain of joints and Sprain of joints Diagnosis 9 [facility] - New ligaments of other and ligaments of 03:57:00 PM Lali parts of neck, other parts of EDT Hospit al initial encounter neck, initial encounter S09.8XXA Other specified Other specified Diagnosis 10/28/2018 [facility] - [facility] injuries of head, injuries of head, 03:57:00 PM Lali initial encounter initial encounter EDT Hospital HEAD INJURY/EMPRESS HEAD INJURY/EMPRESS Diagnosis 019 [facility] - New 03:57:00 PM [facility] Y99.0 Civilian activity Civilian activity Diagnosis 10/28/2018 [facility] - New done for income or done for income or 03:57:00 PM [place] pay pay [facility] Y93.89 Activity, other Other activity Diagnosis 10/28/2018 [facility] - New specified 03:57:00 PM [facility] Surgeries/Procedures Procedure Description Date Indications Data Source(s) XR Chest Single AP view XR 11/11/2019 [facility] Chest Single AP view 08:23:00 PM System EDT - 11/11/2019 08:23:00 PM EDT Electrocardiographic 11/11/2019 [facility] procedure (procedure) 07:35:30 PM System EDT - 11/11/2019 09:25:00 PM EDT HIV-1 Ultrasensitive 07/06/2019 [facility] RNA,QN,RT-PCR Monitoring (ID 08:15:00 AM System ONLY) Copies/ML EST - 07/06/2019 08:15:00 AM EST Venipuncture 07/06/2019 [facility] th 08:14:16 AM System EST - 07/06/2019 10:00:05 AM EST Human immunodeficiency virus 07/06/2019 [facility] antibody titer measurement 08:14:16 AM S ystem (procedure) EST - 07/06/2019 08:15:00 AM EST XR Chest PA and Left Lateral 07/04/2019 [facility] XR Chest PA and Left Lateral 10:34:00 PM System EST - 07/04/2019 10:34:00 PM EST Electrocardiographic 07/04/2019 [facility] procedure (procedure) 10:19:14 PM System EST - 07/04/2019 10:29:00 PM EST Electrocardiographic 06/25/2019 [facility] procedure (procedure) 11:31:00 AM System EST - 06/25/2019 01:33:00 PM EST HIV-1 Ultrasensitive 02/27/2019 [facility] RNA,QN,RT-PCR Monitoring (ID 05:17:50 PM System ONLY) Copies/ML EDT - 02/27/2019 05:17:50 PM EDT Venipuncture 02/27/2019 [facility] th 04:53:23 PM System EDT - 02/27/2019 06:00:05 PM EDT HIV-1 Ultrasensitive 11/28/2018 [facility] RNA,QN,RT-PCR Monitoring (ID 04:50:00 PM System ONLY) Copies/ML EDT - 11/28/2018 04:50:00 PM EDT Hepatitis C Viral RNA 11/28/2018 [facility] Quantitative Hepatitis C 04:20:00 PM Sys tem Viral RNA Quantitative EDT - 11/28/2018 04:20:00 PM EDT Hepatitis C Viral RNA 11/28/2018 [facility] Hepatitis C Viral RNA 04:20:00 PM System EDT - 11/28/2018 04:20:00 PM EDT Computed tomography of spine 10/28/2018 [facility] (procedure) 05:16:00 PM System EDT - 10/28/2018 05:16:00 PM EDT Computerized axial tomography 10/28/2018 [facility] of brain (procedure) 05:15:00 PM System EDT - 10/28/2018 05:15:00 PM EDT Venipuncture 07/18/2018 [facility] th 04:36:17 PM System EST - 07/18/2018 06:00:05 PM EST Venipuncture 06/27/2018 [facility] 04:38:41 PM System EST - 06/27/2018 06:00:05 PM EST Quantiferon-TB Gold 06/27/2018 [facility] 04:38:41 PM System EST - 06/27/2018 05:09:51 PM EST HIV-1 Ultrasensitive 06/27/2018 [facility] RNA,QN,RT-PCR Monitoring (ID 04:38:00 PM System ONLY) Copies/ML EST - 06/27/2018 04:38:00 PM EST Venipuncture 04/18/2018 [facility] 04:29:53 PM System EDT - 04/18/2018 06:00:05 PM EDT Venipuncture 03/07/2018 [facility] 04:31:16 PM System EDT - 03/07/2018 06:00:05 PM EDT Venipuncture 02/14/2018 [facility] 04:46:30 PM System EDT - 02/14/2018 06:00:04 PM EDT HIV-1 Ultrasensitive 02/14/2018 [facility] RNA,QN,RT-PCR Monitoring (ID 04:46:00 PM System ONLY) Copies/ML EDT - 02/14/2018 04:46:00 PM EDT Venipuncture 09/22/2017 [facility] 10:56:53 AM System EDT - 09/22/2017 12:00:06 PM EDT HIV-1 Ultrasensitive 09/22/2017 [facility] RNA,QN,RT-PCR Monitoring (ID 10:56:00 AM System ONLY) Copies/ML EDT - 09/22/2017 10:56:00 AM EDT Hepatitis C Viral RNA 09/22/2017 [facility] Quantitative Hepatitis C 10:56:00 AM Sys tem Viral RNA Quantitative EDT - 09/22/2017 10:56:00 AM EDT Hepatitis C Viral RNA 09/22/2017 [facility] Hepatitis C Viral RNA 10:56:00 AM System EDT - 09/22/2017 10:56:00 AM EDT Venipuncture 04/20/2017 [facility] 11:42:15 AM System EDT - 04/20/2017 01:00:05 PM EDT HIV-1 Ultrasensitive 04/20/2017 [facility] RNA,QN,RT-PCR Monitoring (ID 11:42:00 AM System ONLY) Copies/ML EDT - 04/20/2017 11:42:00 AM EDT HIV-1 Ultrasensitive 09/27/2016 [facility] RNA,QN,RT-PCR Monitoring (ID 03:38:00 PM System ONLY) Copies/ML EDT - 09/27/2016 03:38:00 PM EDT Echocardiography, real-time 09/17/2016 [facility] with image documentation with 09:17:00 AM System M-mode recording, complete EDT - (procedure) 09/17/2016 09:53:00 AM EDT HIV-1 Ultrasensitive 04/26/2016 [facility] RNA,QN,RT-PCR Monitoring (ID 03:49:00 PM System ONLY) Copies/ML EST - 04/26/2016 03:49:00 PM EST HIV-1 Ultrasensitive 12/04/2015 [facility] RNA,QN,RT-PCR Monitoring (ID 03:48:00 PM System ONLY) Copies/ML EDT - 12/04/2015 03:48:00 PM EDT Hepatitis C Viral RNA 12/04/2015 [facility] Quantitative Hepatitis C 03:48:00 PM Sys tem Viral RNA Quantitative EDT - 12/04/2015 03:48:00 PM EDT Hepatitis C Viral RNA 12/04/2015 [facility] Hepatitis C Viral RNA 03:48:00 PM System EDT - 12/04/2015 03:48:00 PM EDT HIV-1 Ultrasensitive 07/28/2015 [facility] RNA,QN,RT-PCR Monitoring (ID 03:37:00 PM System ONLY) Copies/ML EST - 07/28/2015 03:37:00 PM EST HIV-1 Ultrasensitive 05/12/2015 [facility] RNA,QN,RT-PCR Monitoring (ID 03:07:00 PM System ONLY) Copies/ML EST - 05/12/2015 03:07:00 PM EST HIV-1 Ultrasensitive 02/13/2015 [facility] RNA,QN,RT-PCR Monitoring (ID 01:16:00 PM System ONLY) Copies/ML EDT - 02/13/2015 01:16:00 PM EDT Lymphocyte Subset Profile II 02/04/2015 [facility] 12:04:14 PM System EDT - 02/04/2015 12:12:00 PM EDT XR Chest PA and Left Lateral 02/04/2015 [facility] XR Chest PA and Left Lateral 10:37:00 AM System EDT - 02/04/2015 10:37:00 AM EDT Electrocardiographic 02/04/2015 [facility] procedure (procedure) 10:06:00 AM System EDT - 02/04/2015 11:00:00 AM EDT XR Chest Single PA view 02/04/2015 [facility] 10:05:00 AM System EDT - 02/04/2015 10:37:48 AM EDT Echocardiography, real-time 12/27/2014 [facility] with image documentation with 03:34:00 PM System M-mode recording, complete EDT - (procedure) 12/28/2014 07:02:00 PM EDT XR Chest PA and Left Lateral 12/25/2014 [facility] XR Chest PA and Left Lateral 07:30:00 PM System EDT - 12/25/2014 07:30:00 PM EDT Electrocardiographic 12/25/2014 [facility] procedure (procedure) 06:19:38 PM System EDT - 12/25/2014 06:29:00 PM EDT XR Chest PA and Left Lateral 12/12/2014 [facility] XR Chest PA and Left Lateral 09:57:00 AM System EDT - 12/12/2014 09:57:00 AM EDT Computed tomography of 12/12/2014 [facility] abdomen (procedure) 09:37:00 AM System EDT - 12/12/2014 09:37:00 AM EDT HIV-1 Ultrasensitive 11/07/2014 [facility] RNA,QN,RT-PCR Monitoring (ID 12:57:00 PM System ONLY) Copies/ML EDT - 11/07/2014 12:57:00 PM EDT Venipuncture 11/07/2014 [facility] th 11:28:23 AM System EDT - 11/07/2014 01:00:03 PM EDT Venipuncture 08/10/2014 [facility] th 11:53:46 AM System EST - 08/10/2014 01:00:03 PM EST HIV-1 Ultrasensitive 04/15/2014 [facility] RNA,QN,RT-PCR Monitoring (ID 09:42:00 AM System ONLY) Copies/ML EDT - 04/15/2014 09:42:00 AM EDT Venipuncture 01/21/2014 [facility] th 05:53:28 PM System EDT - 01/21/2014 07:00:03 PM EDT Venipuncture 01/21/2014 [facility] th 04:58:40 PM System EDT - 01/21/2014 06:00:04 PM EDT XR Chest PA and Left Lateral 01/21/2014 [facility] XR Chest PA and Left Lateral 10:55:00 AM System EDT - 01/21/2014 10:55:00 AM EDT Electrocardiographic 12/27/2013 [facility] procedure (procedure) 01:19:00 PM System EDT - 12/27/2013 01:19:00 PM EDT Venipuncture 12/27/2013 [facility] 01:05:36 PM System EDT - 12/27/2013 03:00:04 PM EDT HIV-1 Ultrasensitive 12/27/2013 [facility] RNA,QN,RT-PCR Monitoring (ID 12:00:00 PM System ONLY) Copies/ML EDT - 12/27/2013 12:00:00 PM EDT HIV-1 Ultrasensitive 08/15/2013 [facility] RNA,QN,RT-PCR Diagnostic 11:22:00 AM Sys tem Copies/ML EST - 08/15/2013 11:22:00 AM EST HIV-1 Ultrasensitive 04/30/2013 [facility] RNA,QN,RT-PCR Diagnostic 11:37:00 AM Sys tem Copies/ML EST - 04/30/2013 11:37:00 AM EST HIV-1 Ultrasensitive 04/05/2013 [facility] RNA,QN,RT-PCR Monitoring (ID 12:20:00 PM System ONLY) Copies/ML EDT - 04/05/2013 12:20:00 PM EDT HIV-1 RNA, QN RT-PCR 11/30/2012 [facility] Copies/ML 10:35:00 AM System EDT - 11/30/2012 10:35:00 AM EDT Electrocardiographic 09/30/2012 [facility] procedure (procedure) 03:28:54 PM System EDT - 09/30/2012 04:45:00 PM EDT Computerized axial tomography 09/30/2012 [facility] of brain (procedure) 03:28:00 PM System EDT - 09/30/2012 03:28:00 PM EDT HIV-1 RNA, QN RT-PCR 08/30/2012 [facility] Copies/ML 10:21:00 AM System EDT - 08/30/2012 10:21:00 AM EDT Toxoplasma IgG + IgM Antibody 05/17/2012 [facility] 04:39:36 PM System EST - 05/17/2012 11:30:00 AM EST HIV-1 RNA, QN RT-PCR 05/17/2012 [facility] Copies/ML 11:30:00 AM System EST - 05/17/2012 11:30:00 AM EST RPR, Serum 02/17/2012 [facility] th 04:05:57 PM System EDT - 02/17/2012 12:00:00 PM EDT HIV-1 RNA, QN RT-PCR 02/17/2012 [facility] Copies/ML 12:00:00 PM System EDT - 02/17/2012 12:00:00 PM EDT Lympocyte Subset Profile II 12/23/2011 [facility] 04:29:13 PM System EDT - 12/23/2011 01:30:00 PM EDT Human immunodeficiency virus 12/23/2011 [facility] antibody titer measurement 04:29:13 PM S ystem (procedure) EDT - 12/23/2011 01:30:00 PM EDT RPR, Serum 12/23/2011 [facility] th 04:29:13 PM System EDT - 12/23/2011 01:30:00 PM EDT Ferritin, Serum 12/23/2011 [facility] 04:29:13 PM System EDT - 12/23/2011 01:30:00 PM EDT Complete Blood Count + 12/23/2011 [facility] Automated Diff 04:29:13 PM System EDT - 12/23/2011 01:30:00 PM EDT Lipid Profile 12/23/2011 [facility] 04:29:13 PM System EDT - 12/23/2011 01:30:00 PM EDT Total Iron Binding Capacity 12/23/2011 [facility] 04:29:13 PM System EDT - 12/23/2011 01:30:00 PM EDT HIV-1 RNA, QN RT-PCR 12/23/2011 [facility] Copies/ML 12:30:00 PM System EDT - 12/23/2011 12:30:00 PM EDT HIV-1 RNA, QN RT-PCR 12/01/2011 [facility] Copies/ML 02:00:00 PM System EDT - 12/01/2011 02:00:00 PM EDT Auto Differential 11/10/2011 [facility] 05:24:00 PM System EDT - 11/10/2011 04:37:50 PM EDT XR Chest PA and Left Lateral 08/18/2011 [facility] XR Chest PA and Left Lateral 12:39:00 PM System EST - 08/18/2011 12:39:00 PM EST Electrocardiographic 08/18/2011 [facility] procedure (procedure) 12:07:00 PM System EST - 08/18/2011 12:16:00 PM EST Auto Differential 08/02/2011 [facility] 04:48:00 PM System EST - 08/02/2011 02:23:32 PM EST Auto Differential 07/10/2011 [facility] 01:55:00 AM System EST - 07/10/2011 12:00:00 AM EST XR Chest AP and Left Lateral 07/10/2011 [facility] XR Chest AP and Left Lateral 12:34:00 AM System EST - 07/10/2011 12:34:00 AM EST Influenza A+B Direct Antigen 07/10/2011 [facility] 12:34:00 AM System EST - 07/10/2011 12:00:00 AM EST Electrocardiographic 05/26/2011 [facility] procedure (procedure) 11:30:00 AM System EST - 05/26/2011 11:31:00 AM EST XR Chest PA and Left Lateral 05/26/2011 [facility] XR Chest PA and Left Lateral 11:01:00 AM System EST - 05/26/2011 11:01:00 AM EST Results ID Date Data Source [id number] 03/12/2020 08:51:00 AM EDT [facility] Name Value Range Interpretation Description Data Sup porting Code Source(s) Document(s ) SARS [facility] coronavirus 2 RNA This lab was ordered by [facility] and reported by [facility]. ID Date Data Source [id number] 11/10/2011 04:37:50 PM EDT [facility] System Name Value Range Interpretation Description Data Sup porting Code Source(s) Document(s ) Erythrocyte 8 Normal (applies Sedimentation [facility] sedimentation {mmlhr} to non-numeric Rate, Health rate by 2H results) Erythrocyte System Westergren method ID Date Data Source [id number] 11/10/2011 04:37:50 PM EDT [facility] System Name Value Range Interpretation Description Data Sup porting Code Source(s) Document(s ) Polys 57 % Normal (applies Polys [facility] to non-numeric Health results) System Bands 1 % Below low normal Bands [facility] Platelets Adequate Normal (applies Platelet Count [facility] [#/volume] in to non-numeric Estimate Health Blood by results) System Estimate NORM yes. Normal (applies NORM [facility] to non-numeric Health results) System Lymphocytes 23.0 % Normal (applies Lymphocyte % [facility] [#/volume] in to non-numeric Health Blood by results) System Automated count Monocytes/100 13.0 % Above high normal Monocyte % [facility] leukocytes in Health Blood System Eosinophils/10 6.0 % Above high normal Eosinophil % [facility] 0 leukocytes Health in Unspecified System specimen ID Date Data Source [id number] 11/10/2011 04:37:50 PM EDT [facility] System Name Value Range Interpretation Description Data Sup porting Code Source(s) Document(s ) Leukocytes 5.5 Normal (applies WBC Count [facility] [#/volume] in {10\\S\\3_ to non-numeric Health Unspecified uL} results) System specimen by Automated count Hemoglobin 14.0 Normal (applies Hemoglobin, [facility] [Mass/volume] in {gm/dL} to non-numeric Whole Blood Health Blood results) System Erythrocytes 5.00 Normal (applies RBC Count [facility] [#/volume] in {10\\S\\6_ to non-numeric Health Blood by uL} results) System Automated count Hematocrit 42.6 % Normal (applies Hematocrit, [facility] [Volume to non-numeric Whole Blood Health Fraction] of results) System Blood Erythrocyte mean 85.2 fl Normal (applies MCV [facility] corpuscular to non-numeric Health volume [Entitic results) System volume] by Automated count Erythrocyte mean 28.0 pg Normal (applies MCH [facility] corpuscular to non-numeric Health hemoglobin results) System [Entitic mass] by Automated count Erythrocyte mean 32.8 Below low normal MCHC [place] corpuscular {gm/dL} Health hemoglobin System concentration [Mass/volume] by Automated count Erythrocyte 15.0 % Above high normal RDW [facility] distribution Health width [Entitic System volume] by Automated count Platelets 151 Normal (applies Platelet [facility] [#/volume] in {10\\S\\3_ to non-numeric Count Health Plasma by uL} results) System Automated count Platelet mean 9.1 fl Normal (applies MPV [facility] volume [Entitic to non-numeric Health volume] in Blood results) System by Automated count ID Date Data Source [id number] 11/10/2011 04:37:50 PM EDT [facility] System Name Value Range Interpretation Description Data Sup porting Code Source(s) Document(s ) Sodium 139 mmol/L Normal (applies Sodium, [facility] [Moles/volume] to non-numeric Serum Health in Serum or results) System Plasma Potassium 4.1 mmol/L Normal (applies Potassium, [facility] [Mass/volume] to non-numeric Serum Health in Serum or results) System Plasma Chloride 101 mmol/L Normal (applies Chloride, [facility] [Moles/volume] to non-numeric Serum Health in Serum or results) System Plasma Carbon dioxide, 31.9 mmol/L Above high CO2, Serum [facility] total normal Health [Moles/volume] System in Serum or Plasma TotalProtein 7.0 mg/dl Normal (applies Total [facility] to non-numeric Protein Health results) System Glucose 72 mg/dL Normal (applies Glucose, [facility] [Mass/volume] to non-numeric Serum Health in Serum or results) System Plasma Urea nitrogen 9 mg/dl Normal (applies Blood Urea [facility] [Mass/volume] to non-numeric Nitrogen, Health in Serum or results) Serum System Plasma Creatinine 0.79 mg/dl Normal (applies Creatinine, [facility] [Mass/volume] to non-numeric Serum Health in Serum or results) System Plasma Alkaline 45 {IU/L} Normal (applies Alkaline [facility] phosphatase to non-numeric Phosphatase, Health isoenzymes results) Serum System [Enzymatic activity/volume ] in Serum or Plasma by Heat stability Bilirubin.total 0.7 mg/dl Normal (applies Bilirubin, [facility] [Mass/volume] to non-numeric Serum Total Health in Serum or results) System Plasma Aspartate 52 {IU/L} Above high Aspartate [facility] aminotransferas normal Transaminase Health e [Enzymatic , Serum System activity/volume ] in Serum or Plasma by With P-5'-P Albumin 4.0 {gm/dl} Normal (applies Albumin, [facility] [Mass/volume] to non-numeric Serum Health in Serum or results) System Plasma I.Phosphorus 3.8 mg/dl Normal (applies I. [facility] to non-numeric Phosphorus Health results) System Alanine 58 {IU/L} Above high Alanine [facility] aminotransferas normal Aminotransfe Health e [Enzymatic rase, Serum System activity/volume ] in Serum or Plasma Calcium 9.3 mg/dl Normal (applies Calcium, [facility] [Mass/volume] to non-numeric Total Serum Health in Serum or results) System Plasma A/GRatio 1.33 Normal (applies A/G Ratio [facility] to non-numeric Health results) System Urate 5.1 mg/dl Normal (applies Uric Acid, [facility] [Mass/volume] to non-numeric Serum Health in Serum or results) System Plasma Glomerular Greater than Normal (applies GFR [facility] filtration 60 eGFR will to non-numeric Health rate/1.73 sq provide results) System M.predicted clinicians [Volume with a more Rate/Area] in accurate Serum or Plasma indicator of by renal function Creatinine-base then the serum d formula creatinine. (CKD-EPI) The eGFR is automatically calculated from an empiric formula (endorsed by the National Kid[employer]) which incorporates age, sex, and race.Clinician s may notice surprisingly low GFR's with serum creatinine valueswithin normal range- particularly in elderly women (with low muscle mass).In the hospital setting, the eGFR should add an element of safety in drug dosing, in assessing the risk of IV contrast administration , and in assessing vascular risk.The NKF staging system is as follows:Normal : eGFR >90 with no kidney markersStage 1: eGFR >90 with kidney markers*Stage 2: eGFR 60-89Stage 3: eGFR 30-59Stage 4: eGFR 15-29Stage 5: eGFR <15 (usually requiring dialysis)*Rolando ers include: Proteinuria, Hematuria, abnormal imaging-studie s, or other blood or urine test abnormalities Anion gap in 6.10 mmol/L Normal (applies Anion Gap [facility] Serum or Plasma to non-numeric Health results) System ID Date Data Source [id number] 11/10/2011 04:37:50 PM EDT [facility] System Name Value Range Interpretation Description Data Sup porting Code Source(s) Document(s ) Creatine 909 Above high normal Creatine [facility] kinase.MB {IU/L} Kinase, Serum Health System [Mass/volume ] in Serum or Plasma ID Date Data Source [id number] 12/01/2011 02:00:00 PM EDT Jeanie Garcia alth System Name Value Range Interpretation Description Data Source(s ) Supporting Code Document(s ) FTA,Seru Cancelled See FTA, Serum Jeanie preston [id number] Health System ID Date Data Source [id number] 12/01/2011 02:00:00 PM EDT Jeanie Garcia alth System Name Value Range Interpretation Description Data Sup porting Code Source(s) Document(s ) HepatitisA ReactiveReference Abnormal Hepatitis A [facility] Antibody. Range: Nonreactive (applies to Antibody. Health Test Performed at: non-numeric System [facility] results) [facility], [place] [id number] Murdock M.D. Hepatitis NonreactiveReferenc Normal (applies Hepatitis A [facility] A IgM e Range: to non-numeric IgM Antibody Health antibody Nonreactive Test results) System test Performed at: [facility] - (procedure [facility], ) [place] [address] Kelli Murdock M.D. ID Date Data Source [id number] 12/01/2011 02:00:00 PM EDT Jeanie Garcia alth System Name Value Range Interpretation Description Data Sup porting Code Source(s) Document(s ) TotalB-CD1 6 {Percent} Normal (applies Total B-CD19 [facility] 9 to non-numeric Health results) System TotalT-CD3 77 {Percent} Normal (applies Total T-CD3 [facility] to non-numeric Health results) System TSuppresso 49 {Percent} Above high normal T Suppressor Calderon patience rCD8+ CD8+ Health System T-HelperCD 27 {Percent} Below low normal T-[place] CD4+ [facility] patience 4+ Health System [place]/Sup 0.54 {Ratio} Below low normal [place]/Suppres [facility] pressor sor [facility] System Message SEE NOTE Normal (applies Message [facility] Lymphocyte to non-numeric Health subset results) System results confirmed by repeat analysis. Test Performed at: [facility], [place] [address] Kelli Murdock M.D. LymphRel.C 667 Below low normal Lymph Rel. [facility] ount {Cells/mcL} Count Health System CD19 41 Below low normal CD19 [facility] {Cells/mcL} Health System CD3 522 Below low normal CD3 [facility] {Cells/mcL} Health System HelperCD4+ 182 Below low normal [place] CD4+ [facility] {Cells/mcL} Health System SuppressCD 334 Normal (applies Suppress CD8+ [facility] 8+ {Cells/mcL} to non-numeric Health results) System ID Date Data Source [id number] 12/01/2011 02:00:00 PM EDT [facility] System Name Value Range Interpretation Description Data Sup porting Code Source(s) Document(s ) HepatitisCRati 0.17 {Ratio} Normal (applies Hepatitis C [facility] o to non-numeric Ratio Health results) System HepatitisCAnti Non Normal (applies Hepatitis C [facility] body,Serum. ReactiveReferen to non-numeric Antibody, Health ce Range: Non results) Serum. System Reactive A Non Reactive test result does not exclude the possibility of HCV infection since the time for seroconversion is variable. Test Performed at: [email or web address] [employer] [facility], [place] [address] Kelli Murdock M.D. ID Date Data Source [id number] 12/01/2011 02:00:00 PM EDT [facility] System Name Value Range Interpretation Description Data Source(s ) Supporting Code Document(s ) Reagin Ab Reactive Abnormal (applies RPR/VDRL. [facility] [Presence] to non-numeric Health System in Serum by results) RPR ID Date Data Source [id number] 12/01/2011 02:00:00 PM EDT [facility] System Name Value Range Interpretation Description Data Sup porting Code Source(s) Document(s ) Leukocytes 3.4 Below low normal WBC Count [facility] [#/volume] in {10\\S\\3_ Health Unspecified uL} System specimen by Automated count Erythrocytes 5.23 Normal (applies RBC Count [facility] [#/volume] in {10\\S\\6_ to non-numeric Health Blood by uL} results) System Automated count Hemoglobin 14.3 Normal (applies Hemoglobin, [facility] [Mass/volume] in {gm/dL} to non-numeric Whole Blood Health Blood results) System Hematocrit 44.0 % Normal (applies Hematocrit, [facility] [Volume to non-numeric Whole Blood Health Fraction] of results) System Blood Erythrocyte mean 84.1 fl Normal (applies MCV [facility] corpuscular to non-numeric Health volume [Entitic results) System volume] by Automated count Erythrocyte mean 27.3 pg Normal (applies MCH [facility] corpuscular to non-numeric Health hemoglobin results) System [Entitic mass] by Automated count Erythrocyte mean 32.5 Below low normal MCHC [facility] corpuscular {gm/dL} Health hemoglobin System concentration [Mass/volume] by Automated count Erythrocyte 15.5 % Above high normal RDW [facility] distribution Health width [Entitic System volume] by Automated count Platelets 157 Normal (applies Platelet [facility] [#/volume] in {10\\S\\3_ to non-numeric Count Health Plasma by uL} results) System Automated count Platelet mean 10.5 fl Above high normal MPV [facility] volume [Entitic Health volume] in Blood System by Automated count Monocytes 0.7 Normal (applies Monocyte [facility] [#/volume] in {10\\S\\3_ to non-numeric Count Health Blood by Manual uL} results) System count Eosinophils 0.1 Normal (applies Eosinophil [facility] [#/volume] in {10\\S\\3_ to non-numeric Count Blood Health Blood uL} results) System Neutrophils 1.8 Normal (applies Absolute [facility] [#/volume] in {10\\S\\3_ to non-numeric Neutrophil Health Body fluid uL} results) Count System Basophils 0.1 Normal (applies Basophil [facility] [#/volume] in {10\\S\\3_ to non-numeric Count Health Blood by uL} results) System Automated count Lymphocyte 0.7 Normal (applies Lymphocyte [facility] percent {10\\S\\3_ to non-numeric Absolute Health differential uL} results) System count (procedure) Neutrophils/100 52.8 % Normal (applies Neutrophil % Calderon patience leukocytes in to non-numeric Health Blood by results) System Automated count Monocytes/100 22.1 % Above high normal Monocyte % [facility] leukocytes in Health Blood System Eosinophils/100 1.5 % Normal (applies Eosinophil % Calder[place] patience leukocytes in to non-numeric Health Unspecified results) System specimen Lymphocytes 21.8 % Normal (applies Lymphocyte % [facility] [#/volume] in to non-numeric Health Blood by results) System Automated count Basophils/100 1.8 % Above high normal Basophil % [facility] leukocytes in Health Unspecified System specimen by Manual count ID Date Data Source [id number] 12/01/2011 02:00:00 PM EDT [facility] System Name Value Range Interpretation Description Data Sup porting Code Source(s) Document(s ) Sodium 141 mmol/L Normal (applies Sodium, [facility] [Moles/volume] to non-numeric Serum Health in Serum or results) System Plasma Potassium 4.4 mmol/L Normal (applies Potassium, [facility] [Mass/volume] to non-numeric Serum Health in Serum or results) System Plasma Chloride 101 mmol/L Normal (applies Chloride, [facility] [Moles/volume] to non-numeric Serum Health in Serum or results) System Plasma Carbon dioxide, 28.0 mmol/L Normal (applies CO2, Serum Calderon patience total to non-numeric Health [Moles/volume] results) System in Serum or Plasma TotalProtein 7.5 mg/dl Normal (applies Total [facility] to non-numeric Protein Health results) System Glucose 81 mg/dL Normal (applies Glucose, [facility] [Mass/volume] to non-numeric Serum Health in Serum or results) System Plasma Urea nitrogen 10 mg/dl Normal (applies Blood Urea [facility] [Mass/volume] to non-numeric Nitrogen, Health in Serum or results) Serum System Plasma Creatinine 0.70 mg/dl Below low Creatinine, [facility] [Mass/volume] normal Serum Health in Serum or System Plasma Alkaline 62 {IU/L} Normal (applies Alkaline [facility] phosphatase to non-numeric Phosphatase, Health isoenzymes results) Serum System [Enzymatic activity/volume ] in Serum or Plasma by Heat stability Bilirubin.total 0.5 mg/dl Normal (applies Bilirubin, [facility] [Mass/volume] to non-numeric Serum Total Health in Serum or results) System Plasma Aspartate 21 {IU/L} Normal (applies Aspartate [facility] aminotransferas to non-numeric Transaminase Health e [Enzymatic results) , Serum System activity/volume ] in Serum or Plasma by With P-5'-P Albumin 4.3 {gm/dl} Normal (applies Albumin, [facility] [Mass/volume] to non-numeric Serum Health in Serum or results) System Plasma I.Phosphorus 3.9 mg/dl Normal (applies I. [facility] to non-numeric Phosphorus Health results) System Alanine 21 {IU/L} Normal (applies Alanine [facility] aminotransferas to non-numeric Aminotransfe Health e [Enzymatic results) rase, Serum System activity/volume ] in Serum or Plasma Calcium 9.4 mg/dl Normal (applies Calcium, [facility] [Mass/volume] to non-numeric Total Serum Health in Serum or results) System Plasma A/GRatio 1.34 Normal (applies A/G Ratio [facility] to non-numeric Health results) System Urate 5.0 mg/dl Normal (applies Uric Acid, [facility] [Mass/volume] to non-numeric Serum Health in Serum or results) System Plasma Anion gap in 12.00 mmol/L Normal (applies Anion Gap [facility] Serum or Plasma to non-numeric Health results) System Glomerular Greater than Normal (applies GFR [facility] filtration 60 eGFR will to non-numeric Health rate/1.73 sq provide results) System M.predicted clinicians [Volume with a more Rate/Area] in accurate Serum or Plasma indicator of by renal function Creatinine-base then the serum d formula creatinine. (CKD-EPI) The eGFR is automatically calculated from an empiric formula (endorsed by the National Kidney Foundation) which incorporates age, sex, and race.Clinician s may notice surprisingly low GFR's with serum creatinine valueswithin normal range- particularly in elderly women (with low muscle mass).In the hospital setting, the eGFR should add an element of safety in drug dosing, in assessing the risk of IV contrast administration , and in assessing vascular risk.The NKF staging system is as follows:Normal : eGFR >90 with no kidney markersStage 1: eGFR >90 with kidney markers*Stage 2: eGFR 60-89Stage 3: eGFR 30-59Stage 4: eGFR 15-29Stage 5: eGFR <15 (usually requiring dialysis)*Rolando ers include: Proteinuria, Hematuria, abnormal imaging-studie s, or other blood or urine test abnormalities ID Date Data Source [id number] 12/01/2011 02:00:00 PM EDT Jeanie grey System Name Value Range Interpretation Description Data Sup porting Code Source(s) Document(s ) Triglyceride 87 mg/dl Normal (applies Triglycerides, [facility] [Mass/volume] to non-numeric Serum Health in Serum or results) System Plasma Optimal = < 100 mg/dLBoderline High = 15 0 - 199 mg/dLHigh = 200 - 499 mg/dLVery High = > 500 mg/dL Cholesterol 190 mg/dl Normal (applies Cholesterol, Serum [facility] [Mass/volume] in to non-numeric Health S ystem Serum or Plasma results) <200 mg/dL = Uafonjwgh288 - 239 md/dL = Borderline>240 mg/dL = High Risk Cholesterol in HDL 42.0 mg/dL Normal (applies HDL Cholestero l, [facility] [Mass/volume] in to non-numeric Serum Health S yste Serum or Plasma results) Cholesterol in LDL 130.6 mg/dL Normal (applies Low Density [facility] [Mass/volume] in to non-numeric Lipoprotein, Healt h System Serum or Plasma results) Calculated OPTIMAL: LESS THAN 100 mg/dLNEAR OPTIMAL : 100 - 129 mg/dLBODERLINE HIGH: 130 - 150 mg/dL Cholesterol in VLDL 17.4 Normal (applies to VLDL, Serum [facility] [Mass/volume] in Serum non-numeric results) System or Plasma CHDRisk 4.52 Normal (applies to CHD Risk [facility] non-numeric results) System ID Date Data Source [id number] 12/23/2011 12:30:00 PM EDT [facility] System Name Value Range Interpretation Description Data Sup porting Code Source(s) Document(s ) TotalB-CD1 8 {Percent} Normal (applies Total B-CD19 [facility] 9 to non-numeric Health System results) TotalT-CD3 72 {Percent} Normal (applies Total T-CD3 [facility] to non-numeric Health System results) T-HelperCD 15 {Percent} Below low normal T-[place] CD4+ [facility] patience 4+ Health System TSuppresso 54 {Percent} Above high normal T Suppressor [facility] patience rCD8+ CD8+ Health System [place]/Sup 0.28 {Ratio} Below low normal [place]/Suppres [facility] pressor sor Health System Message DNR Test Normal (applies Message [facility] Performed to non-numeric Health System at: [facility] - results) [facility], [place] [address] Kelli Mathieu, M.D. LymphRel.C 442 Below low normal Lymph Rel. [facility] ount {Cells/mcL} Count Health System CD19 34 Below low normal CD19 [facility] {Cells/mcL} Health System CD3 326 Below low normal CD3 [facility] {Cells/mcL} Health System HelperCD4+ 71 Below low normal [place] CD4+ [facility] {Cells/mcL} Health System SuppressCD 249 Normal (applies Suppress CD8+ [facility] 8+ {Cells/mcL} to non-numeric Health System results) ID Date Data Source [id number] 12/23/2011 01:30:00 PM EDT [facility] System Name Value Range Interpretation Description Data Sup porting Code Source(s) Document(s ) Albumin Cancelled Albumin, Serum [facility] [Mass/volu wrong oder Health System me] in Serum or Plasma ID Date Data Source [id number] 01/10/2012 04:41:35 PM EDT [facility] System Name Value Range Interpretation Description Data Sup porting Code Source(s) Document(s ) Poikilocytosis Slight Normal (applies Poikilocytosis [facility] [Presence] in to non-numeric Health Blood by results) System Automated count Anisocytosis 2+ Abnormal Anisocytosis [facility] [Presence] in (applies to Health Blood by non-numeric System Automated count results) Microcytes 2+ Abnormal Microcytosis [facility] [Presence] in (applies to Health Blood by non-numeric System Automated count results) OVAL Slight Abnormal OVAL [facility] (applies to Health non-numeric System results) Platelets Adequate Normal (applies Platelet Count [facility] [#/volume] in to non-numeric Estimate Health Blood by results) System Estimate ID Date Data Source [id number] 01/10/2012 04:41:35 PM EDT [facility] System Name Value Range Interpretation Description Data Sup porting Code Source(s) Document(s ) Erythrocyte 10 Normal (applies Sedimentation [facility] sedimentation {mmlhr} to non-numeric Rate, Health rate by 2H results) Erythrocyte System Westergren method ID Date Data Source [id number] 01/10/2012 04:41:35 PM EDT [facility] System Name Value Range Interpretation Description Data Sup porting Code Source(s) Document(s ) Leukocytes 5.3 Normal (applies WBC Count [facility] [#/volume] in {10\\S\\3_ to non-numeric Health Unspecified uL} results) System specimen by Automated count Erythrocytes 5.03 Normal (applies RBC Count [facility] [#/volume] in {10\\S\\6_ to non-numeric Health Blood by uL} results) System Automated count Hemoglobin 14.3 Normal (applies Hemoglobin, [facility] [Mass/volume] in {gm/dL} to non-numeric Whole Blood Health Blood results) System Hematocrit 43.0 % Normal (applies Hematocrit, [facility] [Volume to non-numeric Whole Blood Health Fraction] of results) System Blood Erythrocyte mean 85.6 fl Normal (applies MCV [facility] corpuscular to non-numeric Health volume [Entitic results) System volume] by Automated count Erythrocyte mean 28.4 pg Normal (applies MCH [facility] corpuscular to non-numeric Health hemoglobin results) System [Entitic mass] by Automated count Erythrocyte mean 33.2 Normal (applies MCHC [facility] corpuscular {gm/dL} to non-numeric Health hemoglobin results) System concentration [Mass/volume] by Automated count Erythrocyte 18.2 % Above high normal RDW [facility] distribution Health width [Entitic System volume] by Automated count Platelets 171 Normal (applies Platelet [facility] [#/volume] in {10\\S\\3_ to non-numeric Count Health Plasma by uL} results) System Automated count Platelet mean 9.0 fl Normal (applies MPV [facility] volume [Entitic to non-numeric Health volume] in Blood results) System by Automated count Monocytes 0.7 Above high normal Monocyte [facility] [#/volume] in {10\\S\\3_ Count Health Blood by Manual uL} System count Eosinophils 0.2 Normal (applies Eosinophil [facility] [#/volume] in {10\\S\\3} to non-numeric Count Blood Health Blood results) System Neutrophils 3.6 Normal (applies Absolute [facility] [#/volume] in {10\\S\\3_ to non-numeric Neutrophil Health Body fluid uL} results) Count System Basophils 0.00 Normal (applies Basophil [facility] [#/volume] in {10\\S\\3_ to non-numeric Count Health Blood by uL} results) System Automated count Lymphocyte 0.7 Below low normal Lymphocyte [facility] percent {10\\S\\3_ Absolute Health differential uL} System count (procedure) Neutrophils/100 67.8 % Normal (applies Neutrophil % [facility] patience leukocytes in to non-numeric Health Blood by results) System Automated count Monocytes/100 13.2 % Above high normal Monocyte % [facility] leukocytes in Health Blood System Eosinophils/100 4.2 % Above high normal Eosinophil % [facility] leukocytes in Health Unspecified System specimen Basophils/100 0.6 % Normal (applies Basophil % [facility] leukocytes in to non-numeric Health Unspecified results) System specimen by Manual count Lymphocytes 14.2 % Below low normal Lymphocyte % [facility] [#/volume] in Health Blood by System Automated count ID Date Data Source [id number] 01/10/2012 04:41:35 PM EDT [facility] System Name Value Range Interpretation Description Data Sup porting Code Source(s) Document(s ) Sodium 136 mmol/L Normal (applies Sodium, [facility] [Moles/volume] to non-numeric Serum Health in Serum or results) System Plasma Potassium 3.9 mmol/L Normal (applies Potassium, [facility] [Mass/volume] to non-numeric Serum Health in Serum or results) System Plasma Chloride 97 mmol/L Below low Chloride, [facility] [Moles/volume] normal Serum Health in Serum or System Plasma Carbon dioxide, 29.5 mmol/L Normal (applies CO2, Serum [facility] patience total to non-numeric Health [Moles/volume] results) System in Serum or Plasma TotalProtein 7.5 mg/dl Normal (applies Total [facility] to non-numeric Protein Health results) System Glucose 77 mg/dL Normal (applies Glucose, [facility] [Mass/volume] to non-numeric Serum Health in Serum or results) System Plasma Urea nitrogen 9 mg/dl Normal (applies Blood Urea [facility] [Mass/volume] to non-numeric Nitrogen, Health in Serum or results) Serum System Plasma Creatinine 0.89 mg/dl Normal (applies Creatinine, [facility] [Mass/volume] to non-numeric Serum Health in Serum or results) System Plasma Alkaline 48 {IU/L} Normal (applies Alkaline [facility] phosphatase to non-numeric Phosphatase, Health isoenzymes results) Serum System [Enzymatic activity/volume ] in Serum or Plasma by Heat stability Bilirubin 0.8 mg/dl Normal (applies Bilirubin, [facility] direct and to non-numeric Serum Total Health total panel results) System [Mass/volume] - Serum or Plasma Aspartate 23 {IU/L} Normal (applies Aspartate [facility] aminotransferas to non-numeric Transaminase Health e [Enzymatic results) , Serum System activity/volume ] in Serum or Plasma by With P-5'-P Albumin 4.3 {gm/dl} Normal (applies Albumin, [facility] [Mass/volume] to non-numeric Serum Health in Serum or results) System Plasma I.Phosphorus 4.2 mg/dl Normal (applies I. [facility] to non-numeric Phosphorus Health results) System Alanine 24 {IU/L} Normal (applies Alanine [facility] aminotransferas to non-numeric Aminotransfe Health e [Enzymatic results) rase, Serum System activity/volume ] in Serum or Plasma Calcium 9.2 mg/dl Normal (applies Calcium, [facility] [Mass/volume] to non-numeric Total Serum Health in Serum or results) System Plasma A/GRatio 1.34 Normal (applies A/G Ratio [facility] to non-numeric Health results) System Urate 4.6 mg/dl Normal (applies Uric Acid, [facility] [Mass/volume] to non-numeric Serum Health in Serum or results) System Plasma Anion gap in 9.50 mmol/L Normal (applies Anion Gap [facility] Serum or Plasma to non-numeric Health results) System Glomerular Greater than Normal (applies GFR [facility] filtration 60 eGFR will to non-numeric Health rate/1.73 sq provide results) System M.predicted clinicians [Volume with a more Rate/Area] in accurate Serum or Plasma indicator of by renal function Creatinine-base then the serum d formula creatinine. (CKD-EPI) The eGFR is automatically calculated from an empiric formula (endorsed by the [employer] Kidney [employer]) which incorporates age, sex, and race.Clinician s may notice surprisingly low GFR's with serum creatinine valueswithin normal range- particularly in elderly women (with low muscle mass).In the hospital setting, the eGFR should add an element of safety in drug dosing, in assessing the risk of IV contrast administration , and in assessing vascular risk.The NKF staging system is as follows:Normal : eGFR >90 with no kidney markersStage 1: eGFR >90 with kidney markers*Stage 2: eGFR 60-89Stage 3: eGFR 30-59Stage 4: eGFR 15-29Stage 5: eGFR <15 (usually requiring dialysis)*Rolando rollins include: Proteinuria, Hematuria, abnormal imaging-studie s, or other blood or urine test abnormalities ID Date Data Source [id number] 01/10/2012 04:41:35 PM EDT [facility] Name Value Range Interpretation Description Data Sup porting Code Source(s) Document(s ) Creatine 74 {IU/L} Normal (applies Creatine [facility] kinase.MB to non-numeric Kinase, Serum [facility] Syst em [Mass/volume results) ] in Serum or Plasma ID Date Data Source [id number] 02/17/2012 12:00:00 PM EDT [facility] Name Value Range Interpretation Description Data Sup porting Code Source(s) Document(s ) TotalB-CD1 7 {Percent} Normal (applies Total B-CD19 [facility] 9 to non-numeric [facility] System results) TotalT-CD3 72 {Percent} Normal (applies Total T-CD3 [facility] to non-numeric [facility] results) T-HelperCD 33 {Percent} Normal (applies T-[place] CD4+ [facility] 4+ to non-numeric [facility] System results) TSuppresso 36 {Percent} Normal (applies T Suppressor [facility] rCD8+ to non-numeric CD8+ Health System results) [place]/Sup 0.93 {Ratio} Normal (applies [place]/Suppres [place]on patience pressor to non-numeric sor Health System results) Message DNR Test Normal (applies Message [facility] Performed to non-numeric Health System at: TBR - results) [facility], [place] [address] Kelli Murdock M.D. LymphRel.C 993 Normal (applies Lymph Rel. [facility] ount {Cells/mcL} to non-numeric Count Health System results) CD19 67 Below low normal CD19 [facility] {Cells/mcL} [facility] CD3 736 Below low normal CD3 [facility] {Cells/mcL} [facility] HelperCD4+ 346 Below low normal [place] CD4+ [facility] {Cells/mcL} [facility] SuppressCD 373 Normal (applies Suppress CD8+ [facility] 8+ {Cells/mcL} to non-numeric Health System results) ID Date Data Source [id number] 02/17/2012 12:00:00 PM EDT [facility] Name Value Range Interpretation Description Data Sup porting Code Source(s) Document(s ) Leukocytes 4.9 Normal (applies WBC Count [facility] [#/volume] in {10\\S\\3_ to non-numeric Health Unspecified uL} results) System specimen by Automated count Erythrocytes 4.84 Normal (applies RBC Count [facility] [#/volume] in {10\\S\\6_ to non-numeric Health Blood by uL} results) System Automated count Hemoglobin 14.2 Normal (applies Hemoglobin, [facility] [Mass/volume] in {gm/dL} to non-numeric Whole Blood Health Blood results) System Hematocrit 42.8 % Normal (applies Hematocrit, [facility] [Volume to non-numeric Whole Blood Health Fraction] of results) System Blood Erythrocyte mean 88.4 fl Normal (applies MCV [facility] corpuscular to non-numeric Health volume [Entitic results) System volume] by Automated count Erythrocyte mean 29.3 pg Normal (applies MCH [facility] corpuscular to non-numeric Health hemoglobin results) System [Entitic mass] by Automated count Erythrocyte mean 33.2 Normal (applies MCHC [facility] corpuscular {gm/dL} to non-numeric Health hemoglobin results) System concentration [Mass/volume] by Automated count Erythrocyte 16.4 % Above high normal RDW [facility] distribution Health width [Entitic System volume] by Automated count Platelets 226 Normal (applies Platelet [facility] [#/volume] in {10\\S\\3_ to non-numeric Count Health Plasma by uL} results) System Automated count Platelet mean 10.0 fl Normal (applies MPV [facility] volume [Entitic to non-numeric Health volume] in Blood results) System by Automated count Monocytes 0.8 Normal (applies Monocyte [facility] [#/volume] in {10\\S\\3_ to non-numeric Count Health Blood by Manual uL} results) System count Eosinophils 0.2 Normal (applies Eosinophil [facility] [#/volume] in {10\\S\\3} to non-numeric Count Blood Health Blood results) System Basophils 0.07 Normal (applies Basophil [facility] [#/volume] in {10\\S\\3_ to non-numeric Count Health Blood by uL} results) System Automated count Neutrophils 2.9 Normal (applies Absolute [facility] [#/volume] in {10\\S\\3_ to non-numeric Neutrophil Health Body fluid uL} results) Count System Lymphocyte 1.0 Normal (applies Lymphocyte [facility] percent {10\\S\\3_ to non-numeric Absolute Health differential uL} results) System count (procedure) Neutrophils/100 59.2 % Normal (applies Neutrophil % Calderon patience leukocytes in to non-numeric Health Blood by results) System Automated count Monocytes/100 16.2 % Above high normal Monocyte % [facility] leukocytes in Health Blood System Eosinophils/100 3.5 % Above high normal Eosinophil % [facility] leukocytes in [facility] Unspecified System specimen Basophils/100 1.4 % Above high normal Basophil % [facility] leukocytes in Health Unspecified System specimen by Manual count Lymphocytes 19.7 % Below low normal Lymphocyte % [facility] [#/volume] in Health Blood by System Automated count ID Date Data Source [id number] 02/17/2012 12:00:00 PM EDT [facility] Name Value Range Interpretation Description Data Sup porting Code Source(s) Document(s ) Sodium 139 mmol/L Normal (applies Sodium, [facility] [Moles/volume] to non-numeric Serum Health in Serum or results) System Plasma Potassium 3.6 mmol/L Normal (applies Potassium, [facility] [Mass/volume] to non-numeric Serum Health in Serum or results) System Plasma Chloride 102 mmol/L Normal (applies Chloride, [facility] [Moles/volume] to non-numeric Serum Health in Serum or results) System Plasma Carbon dioxide, 25.0 mmol/L Normal (applies CO2, Serum Calderon patience total to non-numeric Health [Moles/volume] results) System in Serum or Plasma TotalProtein 7.9 mg/dl Normal (applies Total [facility] to non-numeric Protein Health results) System Glucose 74 mg/dL Below low Glucose, [facility] [Mass/volume] normal Serum Health in Serum or System Plasma Urea nitrogen 10 mg/dl Normal (applies Blood Urea [facility] [Mass/volume] to non-numeric Nitrogen, Health in Serum or results) Serum System Plasma Creatinine 0.80 mg/dl Normal (applies Creatinine, [facility] [Mass/volume] to non-numeric Serum Health in Serum or results) System Plasma Alkaline 77 {IU/L} Normal (applies Alkaline [facility] phosphatase to non-numeric Phosphatase, Health isoenzymes results) Serum System [Enzymatic activity/volume ] in Serum or Plasma by Heat stability Bilirubin.total 0.4 mg/dl Normal (applies Bilirubin, [facility] [Mass/volume] to non-numeric Serum Total Health in Serum or results) System Plasma Aspartate 25 {IU/L} Normal (applies Aspartate [facility] aminotransferas to non-numeric Transaminase Health e [Enzymatic results) , Serum System activity/volume ] in Serum or Plasma by With P-5'-P Albumin 4.6 {gm/dl} Normal (applies Albumin, [facility] [Mass/volume] to non-numeric Serum Health in Serum or results) System Plasma I.Phosphorus 3.3 mg/dl Normal (applies I. [facility] to non-numeric Phosphorus Health results) System Alanine 23 {IU/L} Normal (applies Alanine [facility] aminotransferas to non-numeric Aminotransfe Health e [Enzymatic results) rase, Serum System activity/volume ] in Serum or Plasma Calcium 9.6 mg/dl Normal (applies Calcium, [facility] [Mass/volume] to non-numeric Total Serum Health in Serum or results) System Plasma A/GRatio 1.39 Normal (applies A/G Ratio [facility] to non-numeric Health results) System Urate 4.6 mg/dl Normal (applies Uric Acid, [facility] [Mass/volume] to non-numeric Serum Health in Serum or results) System Plasma Anion gap in 12.00 mmol/L Normal (applies Anion Gap [facility] Serum or Plasma to non-numeric Health results) System Glomerular Greater than Normal (applies GFR [facility] filtration 90 eGFR will to non-numeric Health rate/1.73 sq provide results) System M.predicted clinicians [Volume with a more Rate/Area] in accurate Serum or Plasma indicator of by renal function Creatinine-base then the serum d formula creatinine. (CKD-EPI) The eGFR is automatically calculated from an empiric formula (endorsed by the [employer]) which incorporates age, sex, and race.Clinician s may notice surprisingly low GFR's with serum creatinine valueswithin normal range- particularly in elderly women (with low muscle mass).In the hospital setting, the eGFR should add an element of safety in drug dosing, in assessing the risk of IV contrast administration , and in assessing vascular risk.The NKF staging system is as follows:Normal : eGFR >90 with no kidney markersStage 1: eGFR >90 with kidney markers*Stage 2: eGFR 60-89Stage 3: eGFR 30-59Stage 4: eGFR 15-29Stage 5: eGFR <15 (usually requiring dialysis)*Rolando ers include: Proteinuria, Hematuria, abnormal imaging-studie s, or other blood or urine test abnormalities ID Date Data Source [id number] 03/29/2012 11:59:38 AM EDT [facility] System Name Value Range Interpretation Description Data Sup porting Code Source(s) Document(s ) Color Yellow Normal (applies Color [facility] to non-numeric Health results) System Appearance of HAZY Normal (applies Urine [facility] Urine to non-numeric Appearance Health results) System Specific gravity 1.021 Normal (applies Urine Specific [facility] of Urine to non-numeric [facility] results) System pH.. 6.0 Normal (applies pH.. [facility] {pH_units} to non-numeric Health results) System Glucose,UA NEG Normal (applies Glucose, UA [facility] to non-numeric Health results) System Protein 30 mg/dl Normal (applies Protein [facility] [Mass/volume] in to non-numeric Health Serum or Plasma results) System BilirubinUrine NEG Normal (applies Bilirubin [facility] to non-numeric Urine Health results) System Urobilinogen Less than Normal (applies Urobilinogen [facility] [Mass/volume] in 2.0 to non-numeric UA Health Urine Reference results) System Range: Negative or <=2.0 Ketones NEG Normal (applies Ketones UA [facility] [Mass/volume] in to non-numeric Health Urine results) System Nitrate+Nitrite Negative Normal (applies Nitrite [facility] [Mass/volume] in to non-numeric Health Unspecified results) System specimen Leukocyte NEG Normal (applies Leukocyte [facility] esterase to non-numeric Esterase Health [Units/volume] results) Concentration System in Urine Leukocytes 3 {/HPF} Normal (applies White Blood [facility] [#/volume] in to non-numeric Cells Health Unspecified results) System specimen by Automated count RedBloodCells 1 {/HPF} Normal (applies Red Blood [facility] to non-numeric Cells Health results) System Epithelial cells 1 {/HPF} Normal (applies Epithelial [facility] [Presence] in to non-numeric Cells Health Unspecified results) System specimen by Wet preparation Mucus OCC Normal (applies Mucus [facility] to non-numeric Health results) System Bacteria FEW Normal (applies Bacteria [facility] [Presence] in to non-numeric Health Unspecified results) System specimen UrineBlood NEG Normal (applies Urine Blood [facility] to non-numeric Health results) System ID Date Data Source [id number] 03/29/2012 11:59:38 AM EDT [facility] Name Value Range Interpretation Description Data Sup porting Code Source(s) Document(s ) Erythrocyte 5 Normal (applies Sedimentation [facility] sedimentation {mmlhr} to non-numeric Rate, Health rate by 2H results) Erythrocyte System Westergren method ID Date Data Source [id number] 03/29/2012 11:59:38 AM EDT [facility] Name Value Range Interpretation Description Data Sup porting Code Source(s) Document(s ) Leukocytes 5.0 Normal (applies WBC Count [facility] [#/volume] in {10\\S\\3_ to non-numeric Health Unspecified uL} results) System specimen by Automated count Erythrocytes 4.59 Below low normal RBC Count [facility] [#/volume] in {10\\S\\6_ Health Blood by uL} System Automated count Hemoglobin 14.4 Normal (applies Hemoglobin, [facility] [Mass/volume] in {gm/dL} to non-numeric Whole Blood Health Blood results) System Hematocrit 43.0 % Normal (applies Hematocrit, [facility] [Volume to non-numeric Whole Blood Health Fraction] of results) System Blood Erythrocyte mean 93.7 fl Normal (applies MCV [facility] corpuscular to non-numeric Health volume [Entitic results) System volume] by Automated count Erythrocyte mean 31.3 pg Above high normal MCH Calderon patience corpuscular Health hemoglobin System [Entitic mass] by Automated count Erythrocyte mean 33.4 Normal (applies MCHC [facility] corpuscular {gm/dL} to non-numeric Health hemoglobin results) System concentration [Mass/volume] by Automated count Erythrocyte 14.8 % Above high normal RDW [facility] distribution Health width [Entitic System volume] by Automated count Platelets 198 Normal (applies Platelet [facility] [#/volume] in {10\\S\\3_ to non-numeric Count Health Plasma by uL} results) System Automated count Platelet mean 8.6 fl Normal (applies MPV [facility] volume [Entitic to non-numeric Health volume] in Blood results) System by Automated count Monocytes 0.6 Normal (applies Monocyte [facility] [#/volume] in {10\\S\\3_ to non-numeric Count Health Blood by Manual uL} results) System count Eosinophils 0.2 Normal (applies Eosinophil [facility] [#/volume] in {10\\S\\3} to non-numeric Count Blood Health Blood results) System Basophils 0.00 Normal (applies Basophil [facility] [#/volume] in {10\\S\\3_ to non-numeric Count Health Blood by uL} results) System Automated count Neutrophils 3.1 Normal (applies Absolute [facility] [#/volume] in {10\\S\\3_ to non-numeric Neutrophil Health Body fluid uL} results) Count System Lymphocyte 1.1 Below low normal Lymphocyte [facility] percent {10\\S\\3_ Absolute Health differential uL} System count (procedure) Neutrophils/100 61.9 % Normal (applies Neutrophil % Calder[place] patience leukocytes in to non-numeric Health Blood by results) System Automated count Monocytes/100 11.5 % Above high normal Monocyte % [facility] leukocytes in Health Blood System Eosinophils/100 3.5 % Above high normal Eosinophil % [facility] leukocytes in Health Unspecified System specimen Basophils/100 0.5 % Normal (applies Basophil % [facility] leukocytes in to non-numeric Health Unspecified results) System specimen by Manual count Lymphocytes 22.6 % Normal (applies Lymphocyte % [facility] [#/volume] in to non-numeric Health Blood by results) System Automated count ID Date Data Source [id number] 03/29/2012 11:59:38 AM EDT [facility] Name Value Range Interpretation Description Data Sup porting Code Source(s) Document(s ) Sodium 140 mmol/L Normal (applies Sodium, [facility] [Moles/volume] to non-numeric Serum Health in Serum or results) System Plasma Potassium 3.9 mmol/L Normal (applies Potassium, [facility] [Mass/volume] to non-numeric Serum Health in Serum or results) System Plasma Chloride 105 mmol/L Normal (applies Chloride, [facility] [Moles/volume] to non-numeric Serum Health in Serum or results) System Plasma Carbon dioxide, 28.2 mmol/L Normal (applies CO2, Serum Calderon patience total to non-numeric Health [Moles/volume] results) System in Serum or Plasma TotalProtein 7.3 mg/dl Normal (applies Total [facility] to non-numeric Protein Health results) System Glucose 111 mg/dL Above high Glucose, [facility] [Mass/volume] normal Serum Health in Serum or System Plasma Urea nitrogen 11 mg/dl Normal (applies Blood Urea [facility] [Mass/volume] to non-numeric Nitrogen, Health in Serum or results) Serum System Plasma Creatinine 0.82 mg/dl Normal (applies Creatinine, [facility] [Mass/volume] to non-numeric Serum Health in Serum or results) System Plasma Alkaline 82 {IU/L} Normal (applies Alkaline [facility] phosphatase to non-numeric Phosphatase, Health isoenzymes results) Serum System [Enzymatic activity/volume ] in Serum or Plasma by Heat stability Bilirubin.total 0.5 mg/dl Normal (applies Bilirubin, [facility] [Mass/volume] to non-numeric Serum Total Health in Serum or results) System Plasma Aspartate 29 {IU/L} Normal (applies Aspartate [facility] aminotransferas to non-numeric Transaminase Health e [Enzymatic results) , Serum System activity/volume ] in Serum or Plasma by With P-5'-P Albumin 4.3 {gm/dl} Normal (applies Albumin, [facility] [Mass/volume] to non-numeric Serum Health in Serum or results) System Plasma I.Phosphorus 5.0 mg/dl Above high I. [facility] normal Phosphorus Health System Alanine 27 {IU/L} Normal (applies Alanine [facility] aminotransferas to non-numeric Aminotransfe Health e [Enzymatic results) rase, Serum System activity/volume ] in Serum or Plasma Calcium 9.3 mg/dl Normal (applies Calcium, [facility] [Mass/volume] to non-numeric Total Serum Health in Serum or results) System Plasma A/GRatio 1.43 Normal (applies A/G Ratio [facility] to non-numeric Health results) System Urate 5.4 mg/dl Normal (applies Uric Acid, [facility] [Mass/volume] to non-numeric Serum Health in Serum or results) System Plasma Anion gap in 6.80 mmol/L Normal (applies Anion Gap [facility] Serum or Plasma to non-numeric Health results) System Glomerular Greater than Normal (applies GFR [facility] filtration 90 eGFR will to non-numeric Health rate/1.73 sq provide results) System M.predicted clinicians [Volume with a more Rate/Area] in accurate Serum or Plasma indicator of by renal function Creatinine-base then the serum d formula creatinine. (CKD-EPI) The eGFR is automatically calculated from an empiric formula (endorsed by the [employer] Kid[employer]) which incorporates age, sex, and race.Clinician s may notice surprisingly low GFR's with serum creatinine valueswithin normal range- particularly in elderly women (with low muscle mass).In the hospital setting, the eGFR should add an element of safety in drug dosing, in assessing the risk of IV contrast administration , and in assessing vascular risk.The NKF staging system is as follows:Normal : eGFR >90 with no kidney markersStage 1: eGFR >90 with kidney markers*Stage 2: eGFR 60-89Stage 3: eGFR 30-59Stage 4: eGFR 15-29Stage 5: eGFR <15 (usually requiring dialysis)*Rolando ers include: Proteinuria, Hematuria, abnormal imaging-studie s, or other blood or urine test abnormalities ID Date Data Source [id number] 03/29/2012 11:59:38 AM EDT [facility] [employer] [facility] Name Value Range Interpretation Description Data Sup porting Code Source(s) Document(s ) Creatine 120 Normal (applies Creatine [facility] kinase.MB {IU/L} to non-numeric Kinase, Serum Health Syst em [Mass/volume results) ] in Serum or Plasma ID Date Data Source [id number] 05/17/2012 11:30:00 AM EST [facility] Name Value Range Interpretation Code Description Data Lexy rce(s) Supporting Document(s ) FTA,Serum Reactive Abnormal (applies FTA, Serum [facility] to non-numeric Health System results) Reference Range: nonreactive ID Date Data Source [id number] 05/17/2012 11:30:00 AM EST [facility] Name Value Range Interpretation Description Data Sup porting Code Source(s) Document(s ) TotalB-CD1 7 {Percent} Normal (applies Total B-CD19 [facility] 9 to non-numeric Health System results) TotalT-CD3 69 {Percent} Normal (applies Total T-CD3 [facility] to non-numeric Health System results) T-HelperCD 35 {Percent} Normal (applies T-[place] CD4+ [facility] 4+ to non-numeric Health System results) TSuppresso 31 {Percent} Normal (applies T Suppressor [facility] rCD8+ to non-numeric CD8+ Health System results) [place]/Sup 1.13 {Ratio} Normal (applies [place]/Suppres Calderon patience pressor to non-numeric sor Health System results) Message DNR Test Normal (applies Message [facility] Performed to non-numeric Health System at: TBR - results) [facility], [place] [address] Kelli Murdock M.D. LymphRel.C 854 Normal (applies Lymph Rel. [facility] ount {Cells/mcL} to non-numeric Count Health System results) CD19 64 Below low normal CD19 [facility] {Cells/mcL} Health System CD3 577 Below low normal CD3 [facility] {Cells/mcL} Health System HelperCD4+ 288 Below low normal [place] CD4+ [facility] {Cells/mcL} [facility] System SuppressCD 256 Normal (applies Suppress CD8+ [facility] 8+ {Cells/mcL} to non-numeric Health System results) ID Date Data Source [id number] 05/17/2012 11:30:00 AM EST [facility] Name Value Range Interpretation Code Description Data Lexy rce(s) Supporting Document(s ) Reagin Ab 1:8 Normal (applies to Titer-RPR [facility] [Titer] in non-numeric Health System Serum by results) RPR Result Reporting|Telephone||1 07/18/2011 at 1:25 PMCalled to: DR. ARTHUR / Arturo Name: LISBETH early by: DR. ARTHUR05/18/2012 / 1:24 PM Reagin Ab [Presence] Reactive Abnormal (applies to RPR/VDRL . [facility] in Serum by RPR non-numeric results) Sys tem Result Reporting|Telephone||1 07/18/2011 at 1:25 PMCalled to: DR. ARTHUR / Arturo Name: LISBETH early by: DR. ARTHUR05/18/2012 / 1:24 PM ID Date Data Source [id number] 05/17/2012 11:30:00 AM EST [facility] Name Value Range Interpretation Description Data Sup porting Code Source(s) Document(s ) Leukocytes 6.3 Normal (applies WBC Count [facility] [#/volume] in {10\\S\\3_ to non-numeric Health Unspecified uL} results) System specimen by Automated count Erythrocytes 4.81 Normal (applies RBC Count [facility] [#/volume] in {10\\S\\6_ to non-numeric Health Blood by uL} results) System Automated count Hemoglobin 14.2 Normal (applies Hemoglobin, [facility] [Mass/volume] in {gm/dL} to non-numeric Whole Blood Health Blood results) System Hematocrit 43.2 % Normal (applies Hematocrit, [facility] [Volume to non-numeric Whole Blood Health Fraction] of results) System Blood Erythrocyte mean 89.8 fl Normal (applies MCV [facility] corpuscular to non-numeric Health volume [Entitic results) System volume] by Automated count Erythrocyte mean 29.5 pg Normal (applies MCH [facility] corpuscular to non-numeric Health hemoglobin results) System [Entitic mass] by Automated count Erythrocyte mean 32.9 Below low normal [facility] corpuscular {gm/dL} Health hemoglobin System concentration [Mass/volume] by Automated count Erythrocyte 12.5 % Normal (applies RDW [facility] distribution to non-numeric Health width [Entitic results) System volume] by Automated count Platelets 196 Normal (applies Platelet [facility] [#/volume] in {10\\S\\3_ to non-numeric Count Health Plasma by uL} results) System Automated count Platelet mean 10.3 fl Normal (applies MPV [facility] volume [Entitic to non-numeric Health volume] in Blood results) System by Automated count Monocytes 0.9 Normal (applies Monocyte [facility] [#/volume] in {10\\S\\3_ to non-numeric Count Health Blood by Manual uL} results) System count Eosinophils 0.2 Normal (applies Eosinophil [facility] [#/volume] in {10\\S\\3} to non-numeric Count Blood Health Blood results) System Neutrophils 4.4 Normal (applies Absolute [facility] [#/volume] in {10\\S\\3_ to non-numeric Neutrophil Health Body fluid uL} results) Count System Basophils 0.04 Normal (applies Basophil [facility] [#/volume] in {10\\S\\3_ to non-numeric Count Health Blood by uL} results) System Automated count Lymphocyte 0.8 Normal (applies Lymphocyte [facility] percent {10\\S\\3_ to non-numeric Absolute Health differential uL} results) System count (procedure) Neutrophils/100 69.4 % Normal (applies Neutrophil % [facility] patience leukocytes in to non-numeric Health Blood by results) System Automated count Monocytes/100 14.0 % Above high normal Monocyte % [facility] leukocytes in Health Blood System Eosinophils/100 2.7 % Normal (applies Eosinophil % [place] patience leukocytes in to non-numeric Health Unspecified results) System specimen Basophils/100 0.6 % Normal (applies Basophil % [facility] leukocytes in to non-numeric Health Unspecified results) System specimen by Manual count Lymphocytes 13.3 % Below low normal Lymphocyte % [facility] [#/volume] in Health Blood by System Automated count ID Date Data Source [id number] 05/17/2012 11:30:00 AM EST [facility] Name Value Range Interpretation Description Data Sup porting Code Source(s) Document(s ) Sodium 142 mmol/L Normal (applies Sodium, [facility] [Moles/volume] to non-numeric Serum Health in Serum or results) System Plasma Potassium 4.2 mmol/L Normal (applies Potassium, [facility] [Mass/volume] to non-numeric Serum Health in Serum or results) System Plasma Chloride 104 mmol/L Normal (applies Chloride, [facility] [Moles/volume] to non-numeric Serum Health in Serum or results) System Plasma Carbon dioxide, 27.0 mmol/L Normal (applies CO2, Serum [facility] patience total to non-numeric Health [Moles/volume] results) System in Serum or Plasma TotalProtein 7.5 mg/dl Normal (applies Total [facility] to non-numeric Protein Health results) System Glucose 92 mg/dL Normal (applies Glucose, [facility] [Mass/volume] to non-numeric Serum Health in Serum or results) System Plasma Urea nitrogen 14 mg/dl Normal (applies Blood Urea [facility] [Mass/volume] to non-numeric Nitrogen, Health in Serum or results) Serum System Plasma Creatinine 0.80 mg/dl Normal (applies Creatinine, [facility] [Mass/volume] to non-numeric Serum Health in Serum or results) System Plasma Alkaline 127 {IU/L} Above high Alkaline [facility] phosphatase normal Phosphatase, Health isoenzymes Serum System [Enzymatic activity/volume ] in Serum or Plasma by Heat stability Bilirubin.total 0.4 mg/dl Normal (applies Bilirubin, [facility] [Mass/volume] to non-numeric Serum Total Health in Serum or results) System Plasma Aspartate 25 {IU/L} Normal (applies Aspartate [facility] aminotransferas to non-numeric Transaminase Health e [Enzymatic results) , Serum System activity/volume ] in Serum or Plasma by With P-5'-P Albumin 4.5 {gm/dl} Normal (applies Albumin, [facility] [Mass/volume] to non-numeric Serum Health in Serum or results) System Plasma I.Phosphorus 4.4 mg/dl Normal (applies I. [facility] to non-numeric Phosphorus Health results) System Alanine 24 {IU/L} Normal (applies Alanine [facility] aminotransferas to non-numeric Aminotransfe Health e [Enzymatic results) rase, Serum System activity/volume ] in Serum or Plasma Calcium 9.5 mg/dl Normal (applies Calcium, [facility] [Mass/volume] to non-numeric Total Serum Health in Serum or results) System Plasma A/GRatio 1.50 Normal (applies A/G Ratio [facility] to non-numeric Health results) System Urate 5.5 mg/dl Normal (applies Uric Acid, [facility] [Mass/volume] to non-numeric Serum Health in Serum or results) System Plasma Anion gap in 11.00 mmol/L Normal (applies Anion Gap [facility] Serum or Plasma to non-numeric Health results) System Glomerular Greater than Normal (applies GFR [facility] filtration 90 eGFR will to non-numeric Health rate/1.73 sq provide results) System M.predicted clinicians [Volume with a more Rate/Area] in accurate Serum or Plasma indicator of by renal function Creatinine-base then the serum d formula creatinine. (CKD-EPI) The eGFR is automatically calculated from an empiric formula (endorsed by the [employer]) which incorporates age, sex, and race.Clinician s may notice surprisingly low GFR's with serum creatinine valueswithin normal range- particularly in elderly women (with low muscle mass).In the hospital setting, the eGFR should add an element of safety in drug dosing, in assessing the risk of IV contrast administration , and in assessing vascular risk.The NKF staging system is as follows:Normal : eGFR >90 with no kidney markersStage 1: eGFR >90 with kidney markers*Stage 2: eGFR 60-89Stage 3: eGFR 30-59Stage 4: eGFR 15-29Stage 5: eGFR <15 (usually requiring dialysis)*Rolando ers include: Proteinuria, Hematuria, abnormal imaging-studie s, or other blood or urine test abnormalities ID Date Data Source [id number] 05/17/2012 11:30:00 AM [facility] al[facility] System Name Value Range Interpretation Description Data Sup porting Code Source(s) Document(s ) Triglyceride 80 mg/dl Normal (applies Triglycerides, [facility] [Mass/volume] to non-numeric Serum Health in Serum or results) System Plasma Optimal = < 100 mg/dLBoderline High = 15 0 - 199 mg/dLHigh = 200 - 499 mg/dLVery High = > 500 mg/dL Cholesterol 149 mg/dl Normal (applies Cholesterol, Serum [facility] [Mass/volume] in to non-numeric Health S ystem Serum or Plasma results) <200 mg/dL = [id number] - 239 md/dL = Borderline>240 mg/dL = High Risk Cholesterol in HDL 33.0 mg/dL Normal (applies HDL Cholestero l, [facility] [Mass/volume] in to non-numeric Serum Health S ystem Serum or Plasma results) Cholesterol in LDL 100 mg/dL Normal (applies Low Density [facility] [Mass/volume] in to non-numeric Lipoprotein, Healt h System Serum or Plasma results) Calculated OPTIMAL: LESS THAN 100 mg/dLNEAR OPTIMAL : 100 - 129 mg/dLBODERLINE HIGH: 130 - 150 mg/dL Cholesterol in VLDL 16 Normal (applies to VLDL, Serum [facility] [Mass/volume] in Serum non-numeric results) System or Plasma CHDRisk 4.52 Normal (applies to CHD Risk [facility] non-numeric results) System ID Date Data Source [id number] 05/17/2012 11:30:00 AM [facility] System Name Value Range Interpretation Description Data Sup porting Code Source(s) Document(s ) Creatine 126 Normal (applies Creatine [facility] kinase.MB {IU/L} to non-numeric Kinase, Serum Health Syst em [Mass/volume results) ] in Serum or Plasma ID Date Data Source [id number] 07/27/2012 10:00:00 AM [facility] System Name Value Range Interpretation Code Description Data Lexy rce(s) Supporting Document(s ) FTA,Serum REACTIVE Normal (applies to FTA, Serum [facility] non-numeric Health System results) ID Date Data Source [id number] 07/27/2012 10:00:00 AM EST [facility] System Name Value Range Interpretation Description Data Sup porting Code Source(s) Document(s ) Crypto Not Normal (applies Cryptococcal [facility] coccal DetectedReference to non-numeric Antigen. Health Antige Range: Not Detected results) System n. Test Performed at: [email or web address], [place] [address] Kelli Murdock M.D. ID Date Data Source [id number] 07/27/2012 10:00:00 AM EST [facility]ie [facility] al[facility] System Name Value Range Interpretation Description Data Source(s ) Supporting Code Document(s ) Reagin Ab 1:32 Normal (applies to Titer-RPR [facility] [Titer] in non-numeric Health System Serum by results) RPR Reagin Ab Reactive Abnormal (applies RPR/VDRL. [facility] [Presence] to non-numeric Health System in Serum by results) RPR ID Date Data Source [id number] 07/27/2012 10:00:00 AM EST [facility] System Name Value Range Interpretation Description Data Sup porting Code Source(s) Document(s ) Creatine 339 Above high normal Creatine [facility] kinase.MB {IU/L} Kinase, Serum Health System [Mass/volume ] in Serum or Plasma ID Date Data Source [id number] 08/30/2012 10:21:00 AM EDT [facility] System Name Value Range Interpretation Description Data Sup porting Code Source(s) Document(s ) FTA,Ser ReactiveReference Abnormal FTA, Serum [facility] um Range: Nonreactive (applies to Health Test Performed at: non-numeric System [facility] [employer] results) [facility], [place] [address] Kelli Murdock M.D. Result Reporting|Telephone |Germán| 09/04/2012 at 9:02 AMCalled to: Michael Name: Nuzhat by: Francisco 09/04/2012 / 9:02 AM ID Date Data Source [id number] 08/30/2012 10:21:00 AM EDT [facility] System Name Value Range Interpretation Description Data Sup porting Code Source(s) Document(s ) TotalB-CD1 8 {Percent} Normal (applies Total B-CD19 [facility] 9 to non-numeric Health System results) TotalT-CD3 67 {Percent} Normal (applies Total T-CD3 [facility] to non-numeric Health System results) T-HelperCD 35 {Percent} Normal (applies T-[place] CD4+ [facility] 4+ to non-numeric Health System results) TSuppresso 31 {Percent} Normal (applies T Suppressor [facility] rCD8+ to non-numeric CD8+ Health System results) [place]/Sup 1.13 {Ratio} Normal (applies [place]/Suppres [facility] patience pressor to non-numeric sor Health System results) Message DNR Test Normal (applies Message [facility] Performed to non-numeric Health System at: [facility] - results) [facility], [place] [address] Kelli Murdock M.D. LymphRel.C 1171 Normal (applies Lymph Rel. [facility] ount {Cells/mcL} to non-numeric Count Health System results) CD19 96 Below low normal CD19 [facility] {Cells/mcL} Health System CD3 849 Normal (applies CD3 [facility] {Cells/mcL} to non-numeric Health System results) HelperCD4+ 471 Below low normal [place] CD4+ [facility] {Cells/mcL} Health System SuppressCD 416 Normal (applies Suppress CD8+ [facility] 8+ {Cells/mcL} to non-numeric Health System results) ID Date Data Source [id number] 08/30/2012 10:21:00 AM EDT [facility] System Name Value Range Interpretation Code Description Data Lexy rce(s) Supporting Document(s ) Reagin Ab 1:16 Normal (applies to Titer-RPR [facility] [Titer] in non-numeric Health System Serum by results) RPR Result Reporting|Telephone|DR. ARTHUR| 08/31/2012 at 2:04 PMCalled to:DR. ARTHURTech Name:LISBETH OBANDOReadback by:DR. ARTHUR 08/31/2012 / 2:03 PM Reagin Ab [Presence] Reactive Abnormal (applies to RPR/VDRL . [facility] in Serum by RPR non-numeric results) Sys tem Result Reporting|Telephone|DR. ARTHUR| 08/31/2012 at 2:04 PMCalled to:DR. ARTHURTech Name:LISBETH OBANDOReadback by:DR. ARTHUR 08/31/2012 / 2:03 PM ID Date Data Source [id number] 08/30/2012 10:21:00 AM EDT [facility] System Name Value Range Interpretation Description Data Sup porting Code Source(s) Document(s ) Leukocytes 5.1 Normal (applies WBC Count [facility] [#/volume] in {10\\S\\3_ to non-numeric Health Unspecified uL} results) System specimen by Automated count Erythrocytes 5.04 Normal (applies RBC Count [facility] [#/volume] in {10\\S\\6_ to non-numeric Health Blood by uL} results) System Automated count Hemoglobin 14.6 Normal (applies Hemoglobin, [facility] [Mass/volume] in {gm/dL} to non-numeric Whole Blood Health Blood results) System Hematocrit 44.0 % Normal (applies Hematocrit, [facility] [Volume to non-numeric Whole Blood Health Fraction] of results) System Blood Erythrocyte mean 87.3 fl Normal (applies MCV [facility] corpuscular to non-numeric Health volume [Entitic results) System volume] by Automated count Erythrocyte mean 29.0 pg Normal (applies MCH [facility] corpuscular to non-numeric Health hemoglobin results) System [Entitic mass] by Automated count Erythrocyte mean 33.2 Normal (applies MCHC [facility] corpuscular {gm/dL} to non-numeric Health hemoglobin results) System concentration [Mass/volume] by Automated count Erythrocyte 13.3 % Normal (applies RDW [facility] distribution to non-numeric Health width [Entitic results) System volume] by Automated count Platelets 232 Normal (applies Platelet [facility] [#/volume] in {10\\S\\3_ to non-numeric Count Health Plasma by uL} results) System Automated count Platelet mean 10.8 fl Above high normal MPV [facility] volume [Entitic Health volume] in Blood System by Automated count Monocytes 0.6 Normal (applies Monocyte [facility] [#/volume] in {10\\S\\3_ to non-numeric Count Health Blood by Manual uL} results) System count Eosinophils 0.2 Normal (applies Eosinophil [facility] [#/volume] in {10\\S\\3} to non-numeric Count Blood Health Blood results) System Basophils 0.04 Normal (applies Basophil [facility] [#/volume] in {10\\S\\3_ to non-numeric Count Health Blood by uL} results) System Automated count Neutrophils 2.9 Normal (applies Absolute [facility] [#/volume] in {10\\S\\3_ to non-numeric Neutrophil Health Body fluid uL} results) Count System Lymphocyte 1.3 Normal (applies Lymphocyte [facility] percent {10\\S\\3_ to non-numeric Absolute Health differential uL} results) System count (procedure) Neutrophils/100 57.0 % Normal (applies Neutrophil % [facility] patience leukocytes in to non-numeric Health Blood by results) System Automated count Monocytes/100 12.6 % Above high normal Monocyte % [facility] leukocytes in Health Blood System Eosinophils/100 4.7 % Above high normal Eosinophil % [facility] leukocytes in Health Unspecified System specimen Basophils/100 0.8 % Normal (applies Basophil % [facility] leukocytes in to non-numeric Health Unspecified results) System specimen by Manual count Lymphocytes 24.9 % Normal (applies Lymphocyte % [facility] [#/volume] in to non-numeric Health Blood by results) System Automated count ID Date Data Source [id number] 08/30/2012 10:21:00 AM EDT [facility] System Name Value Range Interpretation Description Data Sup porting Code Source(s) Document(s ) Sodium 140 mmol/L Normal (applies Sodium, [facility] [Moles/volume] to non-numeric Serum Health in Serum or results) System Plasma Potassium 4.2 mmol/L Normal (applies Potassium, [facility] [Mass/volume] to non-numeric Serum Health in Serum or results) System Plasma Chloride 104 mmol/L Normal (applies Chloride, [facility] [Moles/volume] to non-numeric Serum Health in Serum or results) System Plasma Carbon dioxide, 25.0 mmol/L Normal (applies CO2, Serum [facility] patience total to non-numeric Health [Moles/volume] results) System in Serum or Plasma TotalProtein 7.8 mg/dl Normal (applies Total [facility] to non-numeric Protein Health results) System Glucose 93 mg/dL Normal (applies Glucose, [facility] [Mass/volume] to non-numeric Serum Health in Serum or results) System Plasma Urea nitrogen 13 mg/dl Normal (applies Blood Urea [facility] [Mass/volume] to non-numeric Nitrogen, Health in Serum or results) Serum System Plasma Creatinine 0.90 mg/dl Normal (applies Creatinine, [facility] [Mass/volume] to non-numeric Serum Health in Serum or results) System Plasma Alkaline 138 {IU/L} Above high Alkaline [facility] phosphatase normal Phosphatase, Health isoenzymes Serum System [Enzymatic activity/volume ] in Serum or Plasma by Heat stability Bilirubin.total 0.4 mg/dl Normal (applies Bilirubin, [facility] [Mass/volume] to non-numeric Serum Total Health in Serum or results) System Plasma Aspartate 36 {IU/L} Normal (applies Aspartate [facility] aminotransferas to non-numeric Transaminase Health e [Enzymatic results) , Serum System activity/volume ] in Serum or Plasma by With P-5'-P Albumin 4.5 {gm/dl} Normal (applies Albumin, [facility] [Mass/volume] to non-numeric Serum Health in Serum or results) System Plasma I.Phosphorus 4.2 mg/dl Normal (applies I. [facility] to non-numeric Phosphorus Health results) System Alanine 43 {IU/L} Normal (applies Alanine [facility] aminotransferas to non-numeric Aminotransfe Health e [Enzymatic results) rase, Serum System activity/volume ] in Serum or Plasma Calcium 9.7 mg/dl Normal (applies Calcium, [facility] [Mass/volume] to non-numeric Total Serum Health in Serum or results) System Plasma A/GRatio 1.36 Normal (applies A/G Ratio [facility] to non-numeric Health results) System Urate 5.0 mg/dl Normal (applies Uric Acid, [facility] [Mass/volume] to non-numeric Serum Health in Serum or results) System Plasma Anion gap in 11.00 mmol/L Normal (applies Anion Gap [facility] Serum or Plasma to non-numeric Health results) System Glomerular Greater than Normal (applies GFR [facility] filtration 90 eGFR will to non-numeric Health rate/1.73 sq provide results) System M.predicted clinicians [Volume with a more Rate/Area] in accurate Serum or Plasma indicator of by renal function Creatinine-base then the serum d formula creatinine. (CKD-EPI) The eGFR is automatically calculated from an empiric formula (endorsed by the [employer] Kidney [employer]) which incorporates age, sex, and race.Clinician s may notice surprisingly low GFR's with serum creatinine valueswithin normal range- particularly in elderly women (with low muscle mass).In the hospital setting, the eGFR should add an element of safety in drug dosing, in assessing the risk of IV contrast administration , and in assessing vascular risk.The NKF staging system is as follows:Normal : eGFR >90 with no kidney markersStage 1: eGFR >90 with kidney markers*Stage 2: eGFR 60-89Stage 3: eGFR 30-59Stage 4: eGFR 15-29Stage 5: eGFR <15 (usually requiring dialysis)*Rolando ers include: Proteinuria, Hematuria, abnormal imaging-studie s, or other blood or urine test abnormalities ID Date Data Source [id number] 08/30/2012 10:21:00 AM EDT [facility] al[facility] System Name Value Range Interpretation Description Data Sup porting Code Source(s) Document(s ) Creatine 206 Above high normal Creatine [facility] kinase.MB {IU/L} Kinase, Serum Health System [Mass/volume ] in Serum or Plasma ID Date Data Source [id number] 09/30/2012 03:33:00 PM EDT [facility] al[facility] System Name Value Range Interpretation Description Data Sup porting Code Source(s) Document(s ) Leukocytes 4.7 Below low normal WBC Count [facility] [#/volume] in {10\\S\\3_ Health Unspecified uL} System specimen by Automated count Erythrocytes 4.55 Below low normal RBC Count [facility] [#/volume] in {10\\S\\6_ Health Blood by uL} System Automated count Hemoglobin 13.5 Below low normal Hemoglobin, [facility] [Mass/volume] in {gm/dL} Whole Blood Health Blood System Hematocrit 40.1 % Below low normal Hematocrit, [facility] [Volume Whole Blood Health Fraction] of System Blood Erythrocyte mean 88.3 fl Normal (applies MCV [facility] corpuscular to non-numeric Health volume [Entitic results) System volume] by Automated count Erythrocyte mean 29.8 pg Normal (applies MCH [facility] corpuscular to non-numeric Health hemoglobin results) System [Entitic mass] by Automated count Erythrocyte mean 33.7 Normal (applies MCHC [facility] corpuscular {gm/dL} to non-numeric Health hemoglobin results) System concentration [Mass/volume] by Automated count Erythrocyte 13.1 % Normal (applies RDW [facility] distribution to non-numeric Health width [Entitic results) System volume] by Automated count Platelets 169 Normal (applies Platelet [facility] [#/volume] in {10\\S\\3_ to non-numeric Count Health Plasma by uL} results) System Automated count Platelet mean 8.4 fl Normal (applies MPV [facility] volume [Entitic to non-numeric Health volume] in Blood results) System by Automated count Monocytes 0.7 Above high normal Monocyte [facility] [#/volume] in {10\\S\\3_ Count Health Blood by Manual uL} System count Eosinophils 0.3 Normal (applies Eosinophil [facility] [#/volume] in {10\\S\\3} to non-numeric Count Blood Health Blood results) System Neutrophils 2.8 Below low normal Absolute [facility] [#/volume] in {10\\S\\3_ Neutrophil Health Body fluid uL} Count System Basophils 0.00 Normal (applies Basophil [facility] [#/volume] in {10\\S\\3_ to non-numeric Count Health Blood by uL} results) System Automated count Lymphocyte 0.9 Below low normal Lymphocyte [facility] percent {10\\S\\3_ Absolute Health differential uL} System count (procedure) Neutrophils/100 59.7 % Normal (applies Neutrophil % [facility] patience leukocytes in to non-numeric Health Blood by results) System Automated count Monocytes/100 14.7 % Above high normal Monocyte % [facility] leukocytes in Health Blood System Eosinophils/100 5.4 % Above high normal Eosinophil % [facility] leukocytes in Health Unspecified System specimen Basophils/100 0.8 % Normal (applies Basophil % [facility] leukocytes in to non-numeric Health Unspecified results) System specimen by Manual count Lymphocytes 19.4 % Normal (applies Lymphocyte % [facility] [#/volume] in to non-numeric Health Blood by results) System Automated count ID Date Data Source [id number] 09/30/2012 03:33:00 PM EDT [facility] System Name Value Range Interpretation Description Data Sup porting Code Source(s) Document(s ) Sodium 138 mmol/L Normal (applies Sodium, [facility] [Moles/volume] to non-numeric Serum Health in Serum or results) System Plasma Potassium 3.8 mmol/L Normal (applies Potassium, [facility] [Mass/volume] to non-numeric Serum Health in Serum or results) System Plasma Chloride 103 mmol/L Normal (applies Chloride, [facility] [Moles/volume] to non-numeric Serum Health in Serum or results) System Plasma Carbon dioxide, 30.4 mmol/L Normal (applies CO2, Serum [facility] patience total to non-numeric Health [Moles/volume] results) System in Serum or Plasma TotalProtein 6.9 mg/dl Normal (applies Total [facility] to non-numeric Protein Health results) System Glucose 87 mg/dL Normal (applies Glucose, [facility] [Mass/volume] to non-numeric Serum Health in Serum or results) System Plasma Urea nitrogen 11 mg/dl Normal (applies Blood Urea [facility] [Mass/volume] to non-numeric Nitrogen, Health in Serum or results) Serum System Plasma Creatinine 0.80 mg/dl Normal (applies Creatinine, [facility] [Mass/volume] to non-numeric Serum Health in Serum or results) System Plasma Alkaline 124 {IU/L} Above high Alkaline [facility] phosphatase normal Phosphatase, Health isoenzymes Serum System [Enzymatic activity/volume ] in Serum or Plasma by Heat stability Bilirubin.total 0.2 mg/dl Normal (applies Bilirubin, [facility] [Mass/volume] to non-numeric Serum Total Health in Serum or results) System Plasma Aspartate 35 {IU/L} Normal (applies Aspartate [facility] aminotransferas to non-numeric Transaminase Health e [Enzymatic results) , Serum System activity/volume ] in Serum or Plasma by With P-5'-P Albumin 4.4 {gm/dl} Normal (applies Albumin, [facility] [Mass/volume] to non-numeric Serum Health in Serum or results) System Plasma I.Phosphorus 3.5 mg/dl Normal (applies I. [facility] to non-numeric Phosphorus Health results) System Alanine 46 {IU/L} Above high Alanine [facility] aminotransferas normal Aminotransfe Health e [Enzymatic rase, Serum System activity/volume ] in Serum or Plasma Calcium 8.9 mg/dl Normal (applies Calcium, [facility] [Mass/volume] to non-numeric Total Serum Health in Serum or results) System Plasma A/GRatio 1.76 Normal (applies A/G Ratio [facility] to non-numeric Health results) System Urate 4.6 mg/dl Normal (applies Uric Acid, [facility] [Mass/volume] to non-numeric Serum Health in Serum or results) System Plasma Anion gap in 4.60 mmol/L Normal (applies Anion Gap [facility] Serum or Plasma to non-numeric Health results) System Glomerular Greater than Normal (applies GFR [facility] filtration 90 eGFR will to non-numeric Health rate/1.73 sq provide results) System M.predicted clinicians [Volume with a more Rate/Area] in accurate Serum or Plasma indicator of by renal function Creatinine-base then the serum d formula creatinine. (CKD-EPI) The eGFR is automatically calculated from an empiric formula (endorsed by the [employer] Kid[employer]) which incorporates age, sex, and race.Clinician s may notice surprisingly low GFR's with serum creatinine valueswithin normal range- particularly in elderly women (with low muscle mass).In the hospital setting, the eGFR should add an element of safety in drug dosing, in assessing the risk of IV contrast administration , and in assessing vascular risk.The NKF staging system is as follows:Normal : eGFR >90 with no kidney markersStage 1: eGFR >90 with kidney markers*Stage 2: eGFR 60-89Stage 3: eGFR 30-59Stage 4: eGFR 15-29Stage 5: eGFR <15 (usually requiring dialysis)*Rolando ers include: Proteinuria, Hematuria, abnormal imaging-studie s, or other blood or urine test abnormalities ID Date Data Source [id number] 09/30/2012 03:33:00 PM EDT [facility] System Name Value Range Interpretation Description Data Sup porting Code Source(s) Document(s ) Creatine 127 Normal (applies Creatine [facility] kinase.MB {IU/L} to non-numeric Kinase, Serum Health Syst em [Mass/volume results) ] in Serum or Plasma ID Date Data Source [id number] 11/30/2012 10:35:00 AM EDT [facility] al[facility] System Name Value Range Interpretation Description Data Sup porting Code Source(s) Document(s ) TotalB-CD1 9 {Percent} Normal (applies Total B-CD19 [facility] 9 to non-numeric Health System results) TotalT-CD3 66 {Percent} Normal (applies Total T-CD3 [facility] to non-numeric Health System results) T-HelperCD 34 {Percent} Normal (applies T-[place] CD4+ [facility] 4+ to non-numeric Health System results) TSuppresso 30 {Percent} Normal (applies T Suppressor [facility] rCD8+ to non-numeric CD8+ Health System results) [place]/Sup 1.14 {Ratio} Normal (applies [place]/Suppres Calderon patience pressor to non-numeric sor Health System results) Message DNR Test Normal (applies Message [facility] Performed to non-numeric Health System at: TBR - results) [facility], [place] [address] Kelli Murdock M.D. LymphRel.C 1079 Normal (applies Lymph Rel. [facility] ount {Cells/mcL} to non-numeric Count Health System results) CD19 94 Below low normal CD19 [facility] {Cells/mcL} Health System CD3 735 Below low normal CD3 [facility] {Cells/mcL} [facility] HelperCD4+ 400 Below low normal [place] CD4+ [facility] {Cells/mcL} [facility] SuppressCD 349 Normal (applies Suppress CD8+ [facility] 8+ {Cells/mcL} to non-numeric Health System results) ID Date Data Source [id number] 11/30/2012 10:35:00 AM EDT [facility] Name Value Range Interpretation Description Data Source(s ) Supporting Code Document(s ) Reagin Ab Non-react Normal (applies to RPR/VDRL. [facility] [Presence] felipa non-numeric Health System in Serum by results) RPR ID Date Data Source [id number] 11/30/2012 10:35:00 AM EDT [facility] Name Value Range Interpretation Description Data Sup porting Code Source(s) Document(s ) Leukocytes 4.2 Below low normal WBC Count [facility] [#/volume] in {10\\S\\3_ Health Unspecified uL} System specimen by Automated count Erythrocytes 4.90 Normal (applies RBC Count [facility] [#/volume] in {10\\S\\6_ to non-numeric Health Blood by uL} results) System Automated count Hemoglobin 13.9 Below low normal Hemoglobin, [facility] [Mass/volume] in {gm/dL} Whole Blood Health Blood System Hematocrit 42.1 % Normal (applies Hematocrit, [facility] [Volume to non-numeric Whole Blood Health Fraction] of results) System Blood Erythrocyte mean 85.9 fl Normal (applies MCV [facility] corpuscular to non-numeric Health volume [Entitic results) System volume] by Automated count Erythrocyte mean 28.4 pg Normal (applies MCH [facility] corpuscular to non-numeric Health hemoglobin results) System [Entitic mass] by Automated count Erythrocyte mean 33.0 Normal (applies MCHC [facility] corpuscular {gm/dL} to non-numeric Health hemoglobin results) System concentration [Mass/volume] by Automated count Erythrocyte 13.6 % Normal (applies RDW [facility] distribution to non-numeric Health width [Entitic results) System volume] by Automated count Platelets 196 Normal (applies Platelet [facility] [#/volume] in {10\\S\\3_ to non-numeric Count Health Plasma by uL} results) System Automated count Platelet mean 11.5 fl Above high normal MPV [facility] volume [Entitic Health volume] in Blood System by Automated count Monocytes 0.7 Normal (applies Monocyte [facility] [#/volume] in {10\\S\\3_ to non-numeric Count Health Blood by Manual uL} results) System count Eosinophils 0.4 Above high normal Eosinophil [facility] [#/volume] in {10\\S\\3} Count Blood Health Blood System Basophils 0.04 Normal (applies Basophil [facility] [#/volume] in {10\\S\\3_ to non-numeric Count Health Blood by uL} results) System Automated count Neutrophils 2.1 Normal (applies Absolute [facility] [#/volume] in {10\\S\\3_ to non-numeric Neutrophil Health Body fluid uL} results) Count System Lymphocyte 1.0 Below low normal Lymphocyte [facility] percent {10\\S\\3_ Absolute Health differential uL} System count (procedure) Neutrophils/100 49.8 % Normal (applies Neutrophil % [facility] patience leukocytes in to non-numeric Health Blood by results) System Automated count Monocytes/100 15.8 % Above high normal Monocyte % [facility] leukocytes in Health Blood System Eosinophils/100 10.5 % Above high normal Eosinophil % [facility] leukocytes in Health Unspecified System specimen Basophils/100 1.0 % Normal (applies Basophil % [facility] leukocytes in to non-numeric Health Unspecified results) System specimen by Manual count Lymphocytes 22.9 % Normal (applies Lymphocyte % [facility] [#/volume] in to non-numeric Health Blood by results) System Automated count ID Date Data Source [id number] 11/30/2012 10:35:00 AM EDT [facility] Name Value Range Interpretation Description Data Sup porting Code Source(s) Document(s ) Sodium 141 mmol/L Normal (applies Sodium, [facility] [Moles/volume] to non-numeric Serum Health in Serum or results) System Plasma Potassium 4.0 mmol/L Normal (applies Potassium, [facility] [Mass/volume] to non-numeric Serum Health in Serum or results) System Plasma Chloride 103 mmol/L Normal (applies Chloride, [facility] [Moles/volume] to non-numeric Serum Health in Serum or results) System Plasma Carbon dioxide, 26.0 mmol/L Normal (applies CO2, Serum [facility] patience total to non-numeric Health [Moles/volume] results) System in Serum or Plasma TotalProtein 7.5 mg/dl Normal (applies Total [facility] to non-numeric Protein Health results) System Glucose 94 mg/dL Normal (applies Glucose, [facility] [Mass/volume] to non-numeric Serum Health in Serum or results) System Plasma Urea nitrogen 12 mg/dl Normal (applies Blood Urea [facility] [Mass/volume] to non-numeric Nitrogen, Health in Serum or results) Serum System Plasma Creatinine 0.90 mg/dl Normal (applies Creatinine, [facility] [Mass/volume] to non-numeric Serum Health in Serum or results) System Plasma Alkaline 151 {IU/L} Above high Alkaline [facility] phosphatase normal Phosphatase, Health isoenzymes Serum System [Enzymatic activity/volume ] in Serum or Plasma by Heat stability Bilirubin.total 0.6 mg/dl Normal (applies Bilirubin, [facility] [Mass/volume] to non-numeric Serum Total Health in Serum or results) System Plasma Aspartate 45 {IU/L} Above high Aspartate [facility] aminotransferas normal Transaminase Health e [Enzymatic , Serum System activity/volume ] in Serum or Plasma by With P-5'-P Albumin 4.3 {gm/dl} Normal (applies Albumin, [facility] [Mass/volume] to non-numeric Serum Health in Serum or results) System Plasma I.Phosphorus 3.7 mg/dl Normal (applies I. [facility] to non-numeric Phosphorus Health results) System Alanine 57 {IU/L} Above high Alanine [facility] aminotransferas normal Aminotransfe Health e [Enzymatic rase, Serum System activity/volume ] in Serum or Plasma Calcium 9.8 mg/dl Normal (applies Calcium, [facility] [Mass/volume] to non-numeric Total Serum Health in Serum or results) System Plasma A/GRatio 1.34 Normal (applies A/G Ratio [facility] to non-numeric Health results) System Urate 5.5 mg/dl Normal (applies Uric Acid, [facility] [Mass/volume] to non-numeric Serum Health in Serum or results) System Plasma Anion gap in 12.00 mmol/L Normal (applies Anion Gap [facility] Serum or Plasma to non-numeric Health results) System Glomerular Greater than Normal (applies GFR [facility] filtration 90 eGFR will to non-numeric Health rate/1.73 sq provide results) System M.predicted clinicians [Volume with a more Rate/Area] in accurate Serum or Plasma indicator of by renal function Creatinine-base then the serum d formula creatinine. (CKD-EPI) The eGFR is automatically calculated from an empiric formula (endorsed by the [employer] Kid[employer]) which incorporates age, sex, and race.Clinician s may notice surprisingly low GFR's with serum creatinine valueswithin normal range- particularly in elderly women (with low muscle mass).In the hospital setting, the eGFR should add an element of safety in drug dosing, in assessing the risk of IV contrast administration , and in assessing vascular risk.The NKF staging system is as follows:Normal : eGFR >90 with no kidney markersStage 1: eGFR >90 with kidney markers*Stage 2: eGFR 60-89Stage 3: eGFR 30-59Stage 4: eGFR 15-29Stage 5: eGFR <15 (usually requiring dialysis)*Rolando ers include: Proteinuria, Hematuria, abnormal imaging-studie s, or other blood or urine test abnormalities ID Date Data Source [id number] 11/30/2012 10:35:00 AM EDSophia grey System Name Value Range Interpretation Description Data Sup porting Code Source(s) Document(s ) Creatine 303 Above high normal Creatine [facility] kinase.MB {IU/L} Kinase, Serum Health System [Mass/volume ] in Serum or Plasma ID Date Data Source [id number] 03/01/2013 12:45:00 PM EDT [facility] System Name Value Range Interpretation Description Data Sup porting Code Source(s) Document(s ) Cytomegalovirus 2.96 Above high Cytomegalovirus [facility] immunoglobulin G normal IgG Antibody, Health antibody Serum System measurement (procedure) UNITS: Index Value Interpretatio n: Positive A positive result indicates that the patient has antibody to CMV. It does not differentiate between an active or past infect ion. The clinical diagnosis must be interpreted in conjunction with clinical signs and symptoms of the patient. Index Value Results Interpretation <0.91 Negative - No CMV I gG antibody detected. 0.91-1.09 Equivocal - Presence or absence of CMV I gG antibody cannot be discerned. >=1.10 Positive - CMV IgG antibody detected. Test Performed at: [email or web address], [place] [address] Kelli Murdock M.D. ID Date Data Source [id number] 03/01/2013 12:45:00 PM [facility] System Name Value Range Interpretation Description Data Sup porting Code Source(s) Document(s ) HerpesIIgG Greater than Above high Herpes I IgG [facility] 5.00 This assay normal Health is type System specific and will differentiate between HSV-1 and HSV-2 infections. A single positive result only indicates previous immunologic exposure and the level of antibody response may not be used to determine active infection or disease stage. The test should be repeated in 4-6 weeks when negative or equivocal results are obtained in suspected early herpes simplex disease. The performance of this assay has not been established for pediatric populations,for screening,or for the testing of immunocompromis ed patients. Interpretation: Positive HerpesIIIgGAnt 0.11 {INDEX} Normal (applies Herpes II [facility] ibody to non-numeric IgG Antibody Health results) System This assay is type specific and will dif ferentiate between HSV-1 and HSV-2 infections. A single positive result onl y indicates previous immunologic exposure and the level of antibo dy response may not be used to determine active infection or disease stag e. The test should be repeated in 4-6 weeks when negative or equivocal results are obtained in suspected early herpes simplex disease. The perf ormance of this assay has not been established for pediatric popula tions,for screening,or for the testing of immunocompromised patients. Interpretation: Negative Test Performed at: [facility] [employer], [place] [address] Kelli Murdock M.D. HerpesIIgM Negative Normal Herpes I [facility] (applies to IgM Health non-numeric System results) HerpesIIIgMAntibody SEE TEXT NegativeThe IFA Normal Herpe s II [facility] procedure for measuring IgM (applies to IgM Health antibodies to HSV1 and HSV 2 non-numeric Antibody System detects both type-common and results) type-specificHSV antibodies. Thus, IgM reactivity to both HSV 1 andHSV 2 may represent crossreactive HSV antibodies ratherthan exposure to both HSV 1 and HSV 2.This test was developed and its performancecharacteristics have been determined by [email or web address].Performance characteristics refer to theanalytical performance of the test. This test was performed at: [facility] [address] This test was performed at: [employer], [facility]. [address] [place] [id number] This test was performed at: [employer]. [address] [place] [id number] Test Performed at: [facility] - [facility] [address] Toro Skaggs MD,PhD ID Date Data Source [id number] 03/01/2013 12:45:00 PM EDT [facility] Name Value Range Interpretation Description Data Sup porting Code Source(s) Document(s ) EBVNaAntibody 4.93 Above high normal EBV Na [facility] Antibody Health System UNITS: Index Value Interpretatio n: Positive Test Performed at: [facility] [employer], [place] [id number] Kelli Mathieu, M.D. EbvCaAntiIgG Greater than 5.00 Above high Ebv Ca Anti [facility] UNITS: Index Value normal IgG Health Syst em Interpretation: Positive Sarah Rae virus Less than 0.91 UNITS: Normal Sarah B arr [facility] nuclear IgM Ab Index Value (applies to Virus IgM Health Syst em [Presence] in Interpretation: non-numeric Antibody Serum by Negative results) Immunoassay Suggestive of a past Sarah-Rae Virus infection. In infants, a similar pattern may occur as a result of passive maternal transfer of antibody. Test Performed at: [email or web address], [place] [address] Kelli Murdock M.D. ID Date Data Source [id number] 03/01/2013 12:45:00 PM EDT [facility] alth System Name Value Range Interpretation Description Data Sup porting Code Source(s) Document(s ) ANATiter 1:1280 Above high normal EMMA Titer [facility] ANAEIA Positive Test Abnormal (applies EMMA EIA [facility] re Performed at: to non-numeric Health Syst em [facility] - [employer] results) [employer], [place] [address] Kelli Murdock M.D. Pattern Speckled Abnormal (applies Pattern [facility] Reference to non-[facility] Health System Range: results) <1:40 Negative 1:40-1:80 Low Antibody Level >1:80 Elevated Antibody Level Test Performed at: [email or web address], [place] [address] Kelli Murdock M.D. ID Date Data Source [id number] 03/01/2013 12:45:00 PM EDT [facility] alth System Name Value Range Interpretation Description Data Sup porting Code Source(s) Document(s ) Measurement of Negative Normal (applies Toxoplasma [facility] Toxoplasma species Test to non-numeric IgM, Serum Healt h immunoglobulin M Performed results) System antibody at: [employer] (procedure) [facility] , [place], [place] [address]Zhane Murdock M.D. ToxoplasmaAntibody Less than Normal (applies Toxoplasma [facility] IgG 0.91 UNITS: to non-numeric Antibody IgG Health Index Value results) System Interpretat ion: Negative Index Value Results Interpretat ion __ <0.91 Negative - No Toxoplasma IgG antibody detected. 0.91-1.09 Equivocal - Presence or absence of Toxoplasma IgG antibody cannot be discerned. >=1.10 Positive - Toxoplasma IgG antibody detected. Test Performed at: [facility] , [place] [address] Kelli Murdock M.D. ID Date Data Source [id number] 03/01/2013 12:45:00 PM EDT [facility] Name Value Range Interpretation Description Data Sup porting Code Source(s) Document(s ) TotalB-CD1 11 {Percent} Normal (applies Total B-CD19 [facility] 9 to non-numeric Health System results) TotalT-CD3 66 {Percent} Normal (applies Total T-CD3 [facility] to non-numeric Health System results) T-HelperCD 35 {Percent} Normal (applies T-[place] CD4+ [facility] 4+ to non-numeric Health System results) TSuppresso 28 {Percent} Normal (applies T Suppressor [facility] rCD8+ to non-numeric CD8+ Health System results) [place]/Sup 1.23 {Ratio} Normal (applies [place]/Suppres [facility] patience pressor to non-numeric sor Health System results) Message DNR Test Normal (applies Message [facility] Performed to non-numeric Health System at: [facility] - results) [facility], [place] [address] Kelli Murdock M.D. LymphRel.C 918 Normal (applies Lymph Rel. [facility] ount {Cells/mcL} to non-numeric Count Health System results) CD19 103 Below low normal CD19 [facility] {Cells/mcL} [facility] System CD3 603 Below low normal CD3 [facility] {Cells/mcL} [facility] System HelperCD4+ 318 Below low normal [place] CD4+ [facility] {Cells/mcL} [facility] SuppressCD 259 Normal (applies Suppress CD8+ [facility] 8+ {Cells/mcL} to non-numeric Health System results) ID Date Data Source [id number] 03/01/2013 12:45:00 PM EDT [facility] System Name Value Range Interpretation Description Data Sup porting Code Source(s) Document(s ) HepatitisCRati 0.11 {Ratio} Normal (applies Hepatitis C [facility] o to non-numeric Ratio Health results) System HepatitisCAnti Non Normal (applies Hepatitis C [facility] body,Serum. ReactiveReferen to non-numeric Antibody, Health ce Range: Non results) Serum. System Reactive A Non Reactive test result does not exclude the possibility of HCV infection since the time for seroconversion is variable. Test Performed at: [email or web address], [place] [address] Kelli Murdock M.D. ID Date Data Source [id number] 03/01/2013 12:45:00 PM EDT [facility] System Name Value Range Interpretation Description Data Source(s ) Supporting Code Document(s ) Reagin Ab 1:16 Normal (applies to Titer-RPR [facility] [Titer] in non-numeric Health System Serum by results) RPR Reagin Ab Reactive Abnormal (applies RPR/VDRL. [facility] [Presence] to non-numeric Health System in Serum by results) RPR ID Date Data Source [id number] 03/01/2013 12:45:00 PM EDT [facility] System Name Value Range Interpretation Description Data Sup porting Code Source(s) Document(s ) Color YELLOW Normal (applies Color [facility] to non-numeric Health results) System Appearance of CLEAR Normal (applies Urine [facility] Urine to non-numeric Appearance Health results) System Specific 1.020 Normal (applies Urine [facility] gravity of to non-numeric Specific Health Urine results) [place] System pH.. 7.0 Normal (applies pH.. [facility] {pH_units} to non-numeric Health results) System Glucose,UA NEGATIVE Normal (applies Glucose, UA [facility] to non-numeric Health results) System Negative Protein [Mass/volume] NEGATIVE Normal (applies to Protein [facility] in Serum or Plasma non-numeric System results) BilirubinUrine NEGATIVE Normal (applies to Bilirubin Urine [facility] non-numeric System results) Negative Urobilinogen 0.20 {eu/dL} Normal (applies Urobilinogen UA [facility] [Mass/volume] in to non-numeric Health S ystem Urine results) Ketones NEGATIVE Normal (applies Ketones UA [facility] [Mass/volume] in to non-numeric Health S ystem Urine results) Negative Nitrate+Nitrite NEGATIVE Normal (applies to Nitrite [facility] patience Health [Mass/volume] in non-numeric results) Sy stem Unspecified specimen Negative Leukocyte esterase NEGATIVE Normal (applies Leukocyte Fadia ase [facility] [Units/volume] in to non-numeric Concentration [facility] System Urine results) Negative UrineBlood NEGATIVE Normal (applies to Urine Blood [facility] non-numeric results) ID Date Data Source [id number] 03/01/2013 12:45:00 PM EDT [facility] Name Value Range Interpretation Description Data Sup porting Code Source(s) Document(s ) Leukocytes 4.6 Below low normal WBC Count [facility] [#/volume] in {10\\S\\3_ Health Unspecified uL} System specimen by Automated count Erythrocytes 5.01 Normal (applies RBC Count [facility] [#/volume] in {10\\S\\6_ to non-numeric Health Blood by uL} results) System Automated count Hemoglobin 14.3 Normal (applies Hemoglobin, [facility] [Mass/volume] in {gm/dL} to non-numeric Whole Blood Health Blood results) System Hematocrit 43.5 % Normal (applies Hematocrit, [facility] [Volume to non-numeric Whole Blood Health Fraction] of results) System Blood Erythrocyte mean 86.8 fl Normal (applies MCV [facility] corpuscular to non-numeric Health volume [Entitic results) System volume] by Automated count Erythrocyte mean 28.5 pg Normal (applies MCH [facility] corpuscular to non-numeric Health hemoglobin results) System [Entitic mass] by Automated count Erythrocyte mean 32.9 Below low normal MCHC [facility] corpuscular {gm/dL} Health hemoglobin System concentration [Mass/volume] by Automated count Erythrocyte 13.5 % Normal (applies RDW [facility] distribution to non-numeric Health width [Entitic results) System volume] by Automated count Platelets 206 Normal (applies Platelet [facility] [#/volume] in {10\\S\\3_ to non-numeric Count Health Plasma by uL} results) System Automated count Platelet mean 11.3 fl Above high normal MPV [facility] volume [Entitic Health volume] in Blood System by Automated count Monocytes 0.6 Normal (applies Monocyte [facility] [#/volume] in {10\\S\\3_ to non-numeric Count Health Blood by Manual uL} results) System count Eosinophils 0.4 Above high normal Eosinophil [facility] [#/volume] in {10\\S\\3_ Count Blood Health Blood uL} System Neutrophils 2.7 Normal (applies Absolute [facility] [#/volume] in {10\\S\\3_ to non-numeric Neutrophil Health Body fluid uL} results) Count System Basophils 0.1 Normal (applies Basophil [facility] [#/volume] in {10\\S\\3_ to non-numeric Count Health Blood by uL} results) System Automated count Lymphocyte 0.9 Below low normal Lymphocyte [facility] percent {10\\S\\3_ Absolute Health differential uL} System count (procedure) Neutrophils/100 57.6 % Normal (applies Neutrophil % [facility] patience leukocytes in to non-numeric Health Blood by results) System Automated count Monocytes/100 13.4 % Above high normal Monocyte % [facility] leukocytes in Health Blood System Eosinophils/100 9.3 % Above high normal Eosinophil % [facility] leukocytes in Health Unspecified System specimen Basophils/100 1.3 % Above high normal Basophil % [facility] leukocytes in Health Unspecified System specimen by Manual count Lymphocytes 18.4 % Below low normal Lymphocyte % [facility] [#/volume] in Health Blood by System Automated count ID Date Data Source [id number] 03/01/2013 12:45:00 PM EDT [facility] alth System Name Value Range Interpretation Description Data Sup porting Code Source(s) Document(s ) Thyrotropin 0.770 Normal (applies Thyroid [facility] [Mass/volume] to non-numeric Stimulating Health Sy stem in Serum or results) Hormone, Serum Plasma ID Date Data Source [id number] 03/01/2013 12:45:00 PM EDT [facility] System Name Value Range Interpretation Description Data Source(s ) Supporting Code Document(s ) [id number] 6.3 ug/dl Normal (applies to T4 Thyroxine [facility] ne non-numeric Health System results) ID Date Data Source [id number] 03/01/2013 12:45:00 PM EDT [facility] Name Value Range Interpretation Description Data Sup porting Code Source(s) Document(s ) Sodium 136 mmol/L Below low Sodium, [facility] [Moles/volume] normal Serum Health in Serum or System Plasma Potassium 4.2 mmol/L Normal (applies Potassium, [facility] [Mass/volume] to non-numeric Serum Health in Serum or results) System Plasma Chloride 99 mmol/L Normal (applies Chloride, [facility] [Moles/volume] to non-numeric Serum Health in Serum or results) System Plasma Carbon dioxide, 25.0 mmol/L Normal (applies CO2, Serum [facility] patience total to non-numeric Health [Moles/volume] results) System in Serum or Plasma TotalProtein 8.3 mg/dl Above high Total [facility] normal Protein Health System Glucose 78 mg/dL Normal (applies Glucose, [facility] [Mass/volume] to non-numeric Serum Health in Serum or results) System Plasma Urea nitrogen 12 mg/dl Normal (applies Blood Urea [facility] [Mass/volume] to non-numeric Nitrogen, Health in Serum or results) Serum System Plasma Creatinine 0.80 mg/dl Normal (applies Creatinine, [facility] [Mass/volume] to non-numeric Serum Health in Serum or results) System Plasma Alkaline 165 {IU/L} Above high Alkaline [facility] phosphatase normal Phosphatase, Health isoenzymes Serum System [Enzymatic activity/volume ] in Serum or Plasma by Heat stability Bilirubin.total 0.4 mg/dl Normal (applies Bilirubin, [facility] [Mass/volume] to non-numeric Serum Total Health in Serum or results) System Plasma Aspartate 75 {IU/L} Above high Aspartate [facility] aminotransferas normal Transaminase Health e [Enzymatic , Serum System activity/volume ] in Serum or Plasma by With P-5'-P Albumin 4.7 {gm/dl} Normal (applies Albumin, [facility] [Mass/volume] to non-numeric Serum Health in Serum or results) System Plasma I.Phosphorus 3.7 mg/dl Normal (applies I. [facility] to non-numeric Phosphorus Health results) System Alanine 105 {IU/L} Above high Alanine [facility] aminotransferas normal Aminotransfe Health e [Enzymatic rase, Serum System activity/volume ] in Serum or Plasma Calcium 10.2 mg/dl Normal (applies Calcium, [facility] [Mass/volume] to non-numeric Total Serum Health in Serum or results) System Plasma A/GRatio 1.31 Normal (applies A/G Ratio [facility] to non-numeric Health results) System Urate 4.3 mg/dl Normal (applies Uric Acid, [facility] [Mass/volume] to non-numeric Serum Health in Serum or results) System Plasma Anion gap in 12.00 mmol/L Normal (applies Anion [place] [facility] Serum or Plasma to non-numeric Health results) System Glomerular Greater than Normal (applies GFR [facility] filtration 90 eGFR will to non-numeric Health rate/1.73 sq provide results) System M.predicted clinicians [Volume with a more Rate/Area] in accurate Serum or Plasma indicator of by renal function Creatinine-base then the serum d formula creatinine. (CKD-EPI) The eGFR is automatically calculated from an empiric formula (endorsed by the National Kidney Foundation) which incorporates age, sex, and race.Clinician s may notice surprisingly low GFR's with serum creatinine valueswithin normal range- particularly in elderly women (with low muscle mass).In the hospital setting, the eGFR should add an element of safety in drug dosing, in assessing the risk of IV contrast administration , and in assessing vascular risk.The NKF staging system is as follows:Normal : eGFR >90 with no kidney markersStage 1: eGFR >90 with kidney markers*Stage 2: eGFR 60-89Stage 3: eGFR 30-59Stage 4: eGFR 15-29Stage 5: eGFR <15 (usually requiring dialysis)*Rolando ers include: Proteinuria, Hematuria, abnormal imaging-studie s, or other blood or urine test abnormalities ID Date Data Source [id number] 03/01/2013 12:45:00 PM EDT Jeanie grey System Name Value Range Interpretation Description Data Sup porting Code Source(s) Document(s ) Triglyceride 84 mg/dl Normal (applies Triglycerides, [facility] [Mass/volume] to non-numeric Serum Health in Serum or results) System Plasma Optimal = < 100 mg/dLBoderline High = 15 0 - 199 mg/dLHigh = 200 - 499 mg/dLVery High = > 500 mg/dL Cholesterol 161 mg/dl Normal (applies Cholesterol, Serum [facility] [Mass/volume] in to non-numeric Health S ystem Serum or Plasma results) <200 mg/dL = Wkkdyzper101 - 239 md/dL = Borderline>240 mg/dL = High Risk Cholesterol in HDL 42.0 mg/dL Normal (applies HDL Cholestero l, [facility] [Mass/volume] in to non-numeric Serum Health S ystem Serum or Plasma results) Cholesterol in LDL 102.2 mg/dL Normal (applies Low Density [facility] [Mass/volume] in to non-numeric Lipoprotein, Healt h System Serum or Plasma results) Calculated OPTIMAL: LESS THAN 100 mg/dLNEAR OPTIMAL : 100 - 129 mg/dLBODERLINE HIGH: 130 - 150 mg/dL Cholesterol in VLDL 16.8 Normal (applies to VLDL, [facility] [Mass/volume] in Serum non-numeric results) System or Plasma CHDRisk 3.83 Normal (applies to CHD Risk [facility] Health non-numeric results) System ID Date Data Source [id number] 03/01/2013 12:45:00 PM EDT [facility] System Name Value Range Interpretation Description Data Sup porting Code Source(s) Document(s ) Creatine 347 Above high normal Creatine [facility] kinase.MB {IU/L} Kinase, Serum Health System [Mass/volume ] in Serum or Plasma ID Date Data Source [id number] 03/01/2013 03:49:00 PM EDT [facility] System Name Value Range Interpretation Code Description Data Lexy rce(s) Supporting Document(s ) FTA,Serum Reactive Abnormal (applies FTA, Serum [facility] to non-numeric Health System results) Reference Range: Non Reactive ID Date Data Source [id number] 03/01/2013 03:49:00 PM EDT [facility] System Name Value Range Interpretation Description Data Sup porting Code Source(s) Document(s ) LymeDiseaseABR See report Normal (applies Lyme Disease AB [facility] esultValue Method: to non-numeric Result Value Health Enzyme-linke results) System d fluorescent immunoassay (ELFA) LymeDiseaseABi See report Normal (applies Lyme Disease AB [facility] nterpretation <.75 to non-numeric interpretation Health Negative>=. results) System 75 - <1.00 Equivocal>=1 .00 Positive ID Date Data Source [id number] 04/05/2013 12:20:00 PM EDT [facility] al[facility] System Name Value Range Interpretation Description Data Sup porting Code Source(s) Document(s ) FTA,Ser ReactiveReference Abnormal FTA, Serum [facility] um Range: Nonreactive (applies to Health Test Performed at: non-numeric System [facility] results) [facility], [place] [address] Kelli Murdock M.D. Result Reporting|Telephone |Cal| 3 at 3:50 PMCalled to: Johnna Name: Nuzhat by: [email or web address]/22/2013 / 3:48 PM ID Date Data Source [id number] 04/05/2013 12:20:00 PM EDT [facility] System Name Value Range Interpretation Description Data Sup porting Code Source(s) Document(s ) TotalB-CD1 15 {Percent} Normal (applies Total B-CD19 [facility] 9 to non-numeric Health System results) TotalT-CD3 67 {Percent} Normal (applies Total T-CD3 [facility] to non-numeric Health System results) T-HelperCD 44 {Percent} Normal (applies T-[place] CD4+ [facility] 4+ to non-numeric Health System results) TSuppresso 21 {Percent} Normal (applies T Suppressor [facility] rCD8+ to non-numeric CD8+ Health System results) [place]/Sup 2.06 {Ratio} Normal (applies [place]/Suppres [place] patience pressor to non-numeric sor Health System results) Message DNR Test Normal (applies Message [facility] Performed to non-numeric Health System at: [facility] - results) [facility], [place] [address] Kelli Murdock M.D. LymphRel.C 1238 Normal (applies Lymph Rel. [facility] ount {Cells/mcL} to non-numeric Count Health System results) CD19 189 Normal (applies CD19 [facility] {Cells/mcL} to non-numeric Health System results) CD3 827 Below low normal CD3 [facility] {Cells/mcL} Health System HelperCD4+ 535 Normal (applies [place] CD4+ [facility] {Cells/mcL} to non-numeric Health System results) SuppressCD 260 Normal (applies Suppress CD8+ [facility] 8+ {Cells/mcL} to non-numeric Health System results) ID Date Data Source [id number] 04/05/2013 12:20:00 PM EDT [facility] System Name Value Range Interpretation Description Data Sup porting Code Source(s) Document(s ) C.Trac Not Normal (applies C. [facility] homati DetectedReference to non-numeric Trachomatis Healt h sAmp Range: Not Detected results) Amp System N.Gono Not Normal (applies N. Gonorrhea [facility] rrheab DetectedReference to non-numeric by [facility] Health yLCR Range: Not Detected results) System This test was performed using the [employer](TM) Chlamydia trachomatis and Neisseria gonorrhoeae Amplified DNA Assays. Test Performed at: [email or web address], [place] [address] Kelli Murdock M.D. ID Date Data Source [id number] 04/05/2013 12:20:00 PM EDT [facility] System Name Value Range Interpretation Code Description Data Lexy rce(s) Supporting Document(s ) Reagin Ab 1:32 Normal (applies to Titer-RPR [facility] [Titer] in non-numeric Health System Serum by results) RPR Result Reporting|Telephone|DR ARTHUR|1 at 4:34 PMCalled to:DR Markham Name:LISBETH early by:LEFT MESSAGE FOR DR ARTHUR (PATIENT HAS PREVIOUS REACTIVE RPR)04/06/2013 / 4:34 PM Reagin Ab [Presence] Reactive Abnormal (applies to RPR/VDRL . [facility] Health in Serum by RPR non-numeric results) Sys tem Result Reporting|Telephone|DR ARTHUR|1 at 4:34 PMCalled to:DR Markham Name:LISBETH early by:LEFT MESSAGE FOR DR ARTHUR (PATIENT HAS PREVIOUS REACTIVE RPR)04/06/2013 / 4:34 PM ID Date Data Source [id number] 04/05/2013 12:20:00 PM EDT [facility] System Name Value Range Interpretation Description Data Sup porting Code Source(s) Document(s ) Leukocytes 6.0 Normal (applies WBC Count [facility] [#/volume] in {10\\S\\3_ to non-numeric Health Unspecified uL} results) System specimen by Automated count Erythrocytes 4.75 Normal (applies RBC Count [facility] [#/volume] in {10\\S\\6_ to non-numeric Health Blood by uL} results) System Automated count Hemoglobin 13.7 Below low normal Hemoglobin, [facility] [Mass/volume] in {gm/dL} Whole Blood Health Blood System Hematocrit 41.3 % Normal (applies Hematocrit, [facility] [Volume to non-numeric Whole Blood Health Fraction] of results) System Blood Erythrocyte mean 86.9 fl Normal (applies MCV [facility] corpuscular to non-numeric Health volume [Entitic results) System volume] by Automated count Erythrocyte mean 28.8 pg Normal (applies MCH [facility] corpuscular to non-numeric Health hemoglobin results) System [Entitic mass] by Automated count Erythrocyte mean 33.2 Normal (applies MCHC [facility] corpuscular {gm/dL} to non-numeric Health hemoglobin results) System concentration [Mass/volume] by Automated count Erythrocyte 13.5 % Normal (applies RDW [facility] distribution to non-numeric Health width [Entitic results) System volume] by Automated count Platelets 211 Normal (applies Platelet [facility] [#/volume] in {10\\S\\3_ to non-numeric Count Health Plasma by uL} results) System Automated count Platelet mean 10.9 fl Above high normal MPV [facility] volume [Entitic Health volume] in Blood System by Automated count Monocytes 0.9 Above high normal Monocyte [facility] [#/volume] in {10\\S\\3_ Count Health Blood by Manual uL} System count Eosinophils 0.2 Normal (applies Eosinophil [facility] [#/volume] in {10\\S\\3_ to non-numeric Count Blood Health Blood uL} results) System Basophils 0.0 Normal (applies Basophil [facility] [#/volume] in {10\\S\\3_ to non-numeric Count Health Blood by uL} results) System Automated count Neutrophils 3.6 Normal (applies Absolute [facility] [#/volume] in {10\\S\\3_ to non-numeric Neutrophil Health Body fluid uL} results) Count System Lymphocyte 1.2 Normal (applies Lymphocyte [facility] percent {10\\S\\3_ to non-numeric Absolute Health differential uL} results) System count (procedure) Neutrophils/100 60.2 % Normal (applies Neutrophil % [facility] patience leukocytes in to non-numeric Health Blood by results) System Automated count Monocytes/100 15.3 % Above high normal Monocyte % [facility] leukocytes in Health Blood System Eosinophils/100 3.9 % Above high normal Eosinophil % [facility] leukocytes in Health Unspecified System specimen Basophils/100 0.5 % Normal (applies Basophil % [facility] leukocytes in to non-numeric Health Unspecified results) System specimen by Manual count Lymphocytes 20.1 % Below low normal Lymphocyte % [facility] [#/volume] in Health Blood by System Automated count ID Date Data Source [id number] 04/05/2013 12:20:00 PM EDT [facility] System Name Value Range Interpretation Description Data Sup porting Code Source(s) Document(s ) Sodium 144 mmol/L Normal (applies Sodium, [facility] [Moles/volume] to non-numeric Serum Health in Serum or results) System Plasma Potassium 4.2 mmol/L Normal (applies Potassium, [facility] [Mass/volume] to non-numeric Serum Health in Serum or results) System Plasma Chloride 103 mmol/L Normal (applies Chloride, [facility] [Moles/volume] to non-numeric Serum Health in Serum or results) System Plasma Carbon dioxide, 27.0 mmol/L Normal (applies CO2, Serum [facility] patience total to non-numeric Health [Moles/volume] results) System in Serum or Plasma TotalProtein 7.2 mg/dl Normal (applies Total [facility] to non-numeric Protein Health results) System Glucose 78 mg/dL Normal (applies Glucose, [facility] [Mass/volume] to non-numeric Serum Health in Serum or results) System Plasma Urea nitrogen 16 mg/dl Normal (applies Blood Urea [facility] [Mass/volume] to non-numeric Nitrogen, Health in Serum or results) Serum System Plasma Creatinine 0.70 mg/dl Below low Creatinine, [facility] [Mass/volume] normal Serum Health in Serum or System Plasma Alkaline 102 {IU/L} Normal (applies Alkaline [facility] phosphatase to non-numeric Phosphatase, Health isoenzymes results) Serum System [Enzymatic activity/volume ] in Serum or Plasma by Heat stability Bilirubin 0.2 mg/dl Normal (applies Bilirubin, [facility] direct and to non-numeric Serum Total Health total panel results) System [Mass/volume] - Serum or Plasma Aspartate 236 {IU/L} Above high Aspartate [facility] aminotransferas normal Transaminase Health e [Enzymatic , Serum System activity/volume ] in Serum or Plasma by With P-5'-P Albumin 4.1 {gm/dl} Normal (applies Albumin, [facility] [Mass/volume] to non-numeric Serum Health in Serum or results) System Plasma I.Phosphorus 4.3 mg/dl Normal (applies I. [facility] to non-numeric Phosphorus Health results) System Alanine 142 {IU/L} Above high Alanine [facility] aminotransferas normal Aminotransfe Health e [Enzymatic rase, Serum System activity/volume ] in Serum or Plasma Calcium 9.7 mg/dl Normal (applies Calcium, [facility] [Mass/volume] to non-numeric Total Serum Health in Serum or results) System Plasma A/GRatio 1.32 Normal (applies A/G Ratio [facility] to non-numeric Health results) System Urate 4.2 mg/dl Normal (applies Uric Acid, [facility] [Mass/volume] to non-numeric Serum Health in Serum or results) System Plasma Anion gap in 14.00 mmol/L Above high Anion Gap [facility] Serum or Plasma normal Health System Glomerular Greater than Normal (applies GFR [facility] filtration 90 eGFR will to non-numeric Health rate/1.73 sq provide results) System M.predicted clinicians [Volume with a more Rate/Area] in accurate Serum or Plasma indicator of by renal function Creatinine-base then the serum d formula creatinine. (CKD-EPI) The eGFR is automatically calculated from an empiric formula (endorsed by the National Kidney Foundation) which incorporates age, sex, and race.Clinician s may notice surprisingly low GFR's with serum creatinine valueswithin normal range- particularly in elderly women (with low muscle mass).In the hospital setting, the eGFR should add an element of safety in drug dosing, in assessing the risk of IV contrast administration , and in assessing vascular risk.The NKF staging system is as follows:Normal : eGFR >90 with no kidney markersStage 1: eGFR >90 with kidney markers*Stage 2: eGFR 60-89Stage 3: eGFR 30-59Stage 4: eGFR 15-29Stage 5: eGFR <15 (usually requiring dialysis)*Rolando ers include: Proteinuria, Hematuria, abnormal imaging-studie s, or other blood or urine test abnormalities ID Date Data Source [id number] 04/05/2013 12:20:00 PM EDT [facility] System Name Value Range Interpretation Description Data Sup porting Code Source(s) Document(s ) Creatine 6266 Above high normal Creatine [facility] kinase.MB {IU/L} Kinase, Serum Health System [Mass/volume ] in Serum or Plasma ID Date Data Source [id number] 04/15/2014 09:42:00 AM EDT [facility] System Name Value Range Interpretation Description Data Sup porting Code Source(s) Document(s ) TotalB-CD1 7 {Percent} Normal (applies Total B-CD19 [facility] 9 to non-numeric Health System results) TotalT-CD3 60 {Percent} Normal (applies Total T-CD3 [facility] to non-numeric Health System results) T-HelperCD 21 {Percent} Below low normal T-[place] CD4+ [facility] patience 4+ Health System TSuppresso 30 {Percent} Normal (applies T Suppressor [facility] rCD8+ to non-numeric CD8+ Health System results) [place]/Sup 0.71 {Ratio} Below low normal [place]/Suppres [facility] pressor sor Health System Message DNR Test Normal (applies Message [facility] Performed to non-numeric Health System at: TBR - results) [facility], [place] [address] Kelli Murdock M.D. LymphRel.C 659 Below low normal Lymph Rel. [facility] ount {Cells/mcL} Count Health System CD19 46 Below low normal CD19 [facility] {Cells/mcL} Health System CD3 397 Below low normal CD3 [facility] {Cells/mcL} Health System HelperCD4+ 141 Below low normal [place] CD4+ [facility] {Cells/mcL} Health System SuppressCD 198 Normal (applies Suppress CD8+ [facility] 8+ {Cells/mcL} to non-numeric Health System results) ID Date Data Source [id number] 04/15/2014 09:42:00 AM EDT [facility] System Name Value Range Interpretation Description Data Sup porting Code Source(s) Document(s ) Leukocytes 7.7 10 Normal (applies WBC Count [facility] [#/volume] in to non-numeric Health Unspecified results) System specimen by Automated count Erythrocytes 4.74 10 Normal (applies RBC Count [facility] [#/volume] in to non-numeric Health Blood by results) System Automated count Hemoglobin 14.7 Normal (applies Hemoglobin, [facility] [Mass/volume] in {gm/dL} to non-numeric Whole Blood Health Blood results) System Hematocrit 42.7 % Normal (applies Hematocrit, [facility] [Volume to non-numeric Whole Blood Health Fraction] of results) System Blood Erythrocyte mean 90.1 fl Normal (applies MCV [facility] corpuscular to non-numeric Health volume [Entitic results) System volume] by Automated count Erythrocyte mean 31.0 pg Normal (applies MCH [facility] corpuscular to non-numeric Health hemoglobin results) System [Entitic mass] by Automated count Erythrocyte mean 34.4 Normal (applies MCHC [facility] corpuscular {gm/dL} to non-numeric Health hemoglobin results) System concentration [Mass/volume] by Automated count Erythrocyte 13.5 % Normal (applies RDW-CV [facility] distribution to non-numeric Health width [Entitic results) System volume] by Automated count Platelets 233 10 Normal (applies Platelet [facility] [#/volume] in to non-numeric Count Health Plasma by results) System Automated count Platelet mean 10.9 fl Above high normal MPV [facility] volume [Entitic Health volume] in Blood System by Automated count Monocytes 0.6 10 Normal (applies Monocyte [facility] [#/volume] in to non-numeric Count Health Blood by Manual results) System count Eosinophils 0.0 10 Below low normal Eosinophil [facility] [#/volume] in Count Blood Health Blood System Neutrophils 6.5 10 Normal (applies Absolute [facility] [#/volume] in to non-numeric Neutrophil Health Body fluid results) Count System Basophils 0.0 10 Normal (applies Basophil [facility] [#/volume] in to non-numeric Count Health Blood by results) System Automated count Lymphocyte 0.6 10 Below low normal Lymphocyte [facility] percent Absolute Health differential System count (procedure) Neutrophils/100 84.4 % Normal (applies Neutrophil % [facility] patience leukocytes in to non-numeric Health Blood by results) System Automated count Monocytes/100 7.3 % Normal (applies Monocyte % [facility] leukocytes in to non-numeric Health Blood results) System Eosinophils/100 0.0 % Below low normal Eosinophil % [facility] leukocytes in Health Unspecified System specimen Basophils/100 0.1 % Normal (applies Basophil % [facility] leukocytes in to non-numeric Health Unspecified results) System specimen by Manual count Lymphocytes 8.2 % Below low normal Lymphocyte % [facility] [#/volume] in Health Blood by System Automated count ID Date Data Source [id number] 04/15/2014 09:42:00 AM EDT [facility] que System Name Value Range Interpretation Description Data Sup porting Code Source(s) Document(s ) Sodium 138 mmol/L Normal (applies Sodium, [facility] [Moles/volume] to non-numeric Serum Health in Serum or results) System Plasma Potassium 4.5 mmol/L Normal (applies Potassium, [facility] [Mass/volume] to non-numeric Serum Health in Serum or results) System Plasma Chloride 104 mmol/L Normal (applies Chloride, [facility] [Moles/volume] to non-numeric Serum Health in Serum or results) System Plasma Carbon dioxide, 27.0 mmol/L Normal (applies CO2, Serum [facility] patience total to non-numeric Health [Moles/volume] results) System in Serum or Plasma TotalProtein 8.1 mg/dl Normal (applies Total [facility] to non-numeric Protein Health results) System Glucose 121 mg/dL Above high Glucose, [facility] [Mass/volume] normal Serum Health in Serum or System Plasma Urea nitrogen 15 mg/dl Normal (applies Blood Urea [facility] [Mass/volume] to non-numeric Nitrogen, Health in Serum or results) Serum System Plasma Creatinine 0.80 mg/dl Normal (applies Creatinine, [facility] [Mass/volume] to non-numeric Serum Health in Serum or results) System Plasma Alkaline 54 {IU/L} Normal (applies Alkaline [facility] phosphatase to non-numeric Phosphatase, Health isoenzymes results) Serum System [Enzymatic activity/volume ] in Serum or Plasma by Heat stability Bilirubin.total 0.2 mg/dl Normal (applies Bilirubin, [facility] [Mass/volume] to non-numeric Serum Total Health in Serum or results) System Plasma Aspartate 19 {IU/L} Normal (applies Aspartate [facility] aminotransferas to non-numeric Transaminase Health e [Enzymatic results) , Serum System activity/volume ] in Serum or Plasma by With P-5'-P Albumin 4.3 {gm/dl} Normal (applies Albumin, [facility] [Mass/volume] to non-numeric Serum Health in Serum or results) System Plasma I.Phosphorus 3.6 mg/dl Normal (applies I. [facility] to non-numeric Phosphorus Health results) System Alanine 25 {IU/L} Normal (applies Alanine [facility] aminotransferas to non-numeric Aminotransfe Health e [Enzymatic results) rase, Serum System activity/volume ] in Serum or Plasma Calcium 9.6 mg/dl Normal (applies Calcium, [facility] [Mass/volume] to non-numeric Total Serum Health in Serum or results) System Plasma A/GRatio 1.13 Normal (applies A/G Ratio [facility] to non-numeric Health results) System Urate 6.4 mg/dl Normal (applies Uric Acid, [facility] [Mass/volume] to non-numeric Serum Health in Serum or results) System Plasma Anion gap in 7.00 mmol/L Below low Anion Gap [facility] Serum or Plasma normal Health System Glomerular Greater than Normal (applies GFR [facility] filtration 90 eGFR will to non-numeric Health rate/1.73 sq provide results) System M.predicted clinicians [Volume with a more Rate/Area] in accurate Serum or Plasma indicator of by renal function Creatinine-base then the serum d formula creatinine. (CKD-EPI) The eGFR is automatically calculated from an empiric formula (endorsed by the National Kidney Foundation) which incorporates age, sex, and race.Clinician s may notice surprisingly low GFR's with serum creatinine valueswithin normal range- particularly in elderly women (with low muscle mass).In the hospital setting, the eGFR should add an element of safety in drug dosing, in assessing the risk of IV contrast administration , and in assessing vascular risk.The NKF staging system is as follows:Normal : eGFR >90 with no kidney markersStage 1: eGFR >90 with kidney markers*Stage 2: eGFR 60-89Stage 3: eGFR 30-59Stage 4: eGFR 15-29Stage 5: eGFR <15 (usually requiring dialysis)*Rolando ers include: Proteinuria, Hematuria, abnormal imaging-studie s, or other blood or urine test abnormalities ID Date Data Source [id number] 04/15/2014 09:42:00 AM EDT Jeanie grey System Name Value Range Interpretation Description Data Sup porting Code Source(s) Document(s ) Creatine 132 Normal (applies Creatine [facility] kinase.MB {IU/L} to non-numeric Kinase, Serum Health Syst em [Mass/volume results) ] in Serum or Plasma ID Date Data Source [id number] 08/10/2014 11:53:00 AM EST [facility] System Name Value Range Interpretation Description Data Sup porting Code Source(s) Document(s ) Color Yellow Normal (applies Color [facility] to non-numeric Health results) System Appearance of HAZY Normal (applies Urine [facility] Urine to non-numeric Appearance Health results) System Specific gravity 1.018 Normal (applies Urine Specific [facility] of Urine to non-numeric [facility] results) System pH.. 5.0 Normal (applies pH.. [facility] {pH_unit to non-numeric Health s} results) System Glucose,UA NEG Normal (applies Glucose, UA [facility] to non-numeric Health results) System Protein NEG Normal (applies Protein [facility] [Mass/volume] in to non-numeric Health Serum or Plasma results) System BilirubinUrine NEG Normal (applies Bilirubin [facility] to non-numeric Urine Health results) System Urobilinogen < 2.0 Normal (applies Urobilinogen [facility] [Mass/volume] in to non-numeric UA Health Urine results) System Reference Range: Negative or <=2.0 Ketones NEG Normal (applies Ketones UA [facility] [Mass/volume] in to non-numeric Health S ystem Urine results) Nitrate+Nitrite Negative Normal (applies Nitrite [facility] [Mass/volume] in to non-numeric Health S ystem Unspecified specimen results) Leukocyte esterase NEG Normal (applies Leukocyte Fadia ase [facility] [Units/volume] in to non-numeric Concentration [facility] System Urine results) Leukocytes 2 {/HPF} Normal (applies White Blood Cells [facility] patience [#/volume] in to non-numeric Health Syst em Unspecified specimen results) by Automated count RedBloodCells 1 {/HPF} Normal (applies Red Blood Cells [facility] to non-numeric [facility] results) Epithelial cells 1 {/HPF} Normal (applies Epithelial Cells [facility] [Presence] in to non-numeric Health Syst em Unspecified specimen results) by Wet preparation Mucus RARE Normal (applies Mucus [facility] to non-numeric [facility] System results) Bacteria [Presence] FEW Normal (applies Bacteria [facility] in Unspecified to non-numeric Health Sys tem specimen results) UrineBlood NEG Normal (applies Urine Blood [facility] to non-numeric [facility] System results) ID Date Data Source [id number] 08/10/2014 11:53:00 AM EST [facility] Name Value Range Interpretation Description Data Sup porting Code Source(s) Document(s ) Erythrocyte 7 Normal (applies Sedimentation [facility] sedimentation {mmlhr} to non-numeric Rate, Health rate by 2H results) Erythrocyte System Westergren method ID Date Data Source [id number] 08/10/2014 11:53:00 AM EST [facility] Name Value Range Interpretation Description Data Sup porting Code Source(s) Document(s ) Leukocytes 6.7 10 Normal (applies WBC Count [facility] [#/volume] in to non-numeric Health Unspecified results) System specimen by Automated count Erythrocytes 4.72 10 Normal (applies RBC Count [facility] [#/volume] in to non-numeric Health Blood by results) System Automated count Hemoglobin 14.2 Normal (applies Hemoglobin [facility] [Mass/volume] in {gm/dL} to non-numeric Health Blood results) System Hematocrit 41.4 % Below low normal Hematocrit [facility] [Volume Health Fraction] of System Blood Erythrocyte mean 87.7 fl Normal (applies MCV [facility] corpuscular to non-numeric Health volume [Entitic results) System volume] by Automated count Erythrocyte mean 30.1 pg Normal (applies MCH [facility] corpuscular to non-numeric Health hemoglobin results) System [Entitic mass] by Automated count Erythrocyte mean 34.3 Normal (applies MCHC [facility] corpuscular {gm/dL} to non-numeric Health hemoglobin results) System concentration [Mass/volume] by Automated count Erythrocyte 14.0 % Normal (applies RDW-CV [facility] distribution to non-numeric Health width [Entitic results) System volume] by Automated count Platelets 267 10 Normal (applies Platelet Count [facility] [#/volume] in to non-numeric Health Plasma by results) System Automated count Platelet mean 10.8 fl Normal (applies MPV [facility] volume [Entitic to non-numeric Health volume] in Blood results) System by Automated count Nucleated 0.0 Normal (applies NRBC % [facility] erythrocytes {/100_WB to non-numeric Health [#/volume] in C} results) System Body fluid NRBC# 0.00 10 Normal (applies NRBC # [facility] to non-numeric Health results) System Neutrophils/100 57.4 % Normal (applies Neutrophil % [facility] patience leukocytes in to non-numeric Health Blood by results) System Automated count Neutrophils 3.8 10 Normal (applies Neutrophil # [facility] [#/volume] in to non-numeric Health Body fluid results) System Lymphocytes 20.2 % Normal (applies Lymphocyte % [facility] [#/volume] in to non-numeric Health Blood by results) System Automated count Lymphocyte 1.3 10 Normal (applies Lymphocyte # [facility] percent to non-numeric Health differential results) System count (procedure) Monocytes/100 14.4 % Above high Monocyte % [facility] leukocytes in normal Health Blood System Monocytes 1.0 10 Normal (applies Monocyte # [facility] [#/volume] in to non-numeric Health Blood by Manual results) System count Eosinophils/100 2.0 % Normal (applies Eosinophil % [facility] patience leukocytes in to non-numeric Health Unspecified results) System specimen Eosinophils 0.13 10 Normal (applies Eosinophil # [facility] [#/volume] in to non-numeric Health Blood results) System Basophils/100 1.8 % Above high Basophil % [facility] leukocytes in normal Health Unspecified System specimen by Manual count Basophils 0.12 10 Above high Basophil # [facility] [#/volume] in normal Health Blood by System Automated count ImmatureGranuloc 0.28 10 Above high Immature [facility] ytes# normal Granulocytes # Health System ImmatureGranuloc 4.2 % Above high Immature [facility] ytes% normal Granulocytes % Health System ID Date Data Source [id number] 08/10/2014 11:53:00 AM EST [facility] Name Value Range Interpretation Description Data Sup porting Code Source(s) Document(s ) Sodium 135 Normal (applies Sodium, Serum [facility] [Moles/volume] in mmol/L to non-numeric Health Serum or Plasma results) System Potassium 4.0 Normal (applies Potassium, [facility] [Mass/volume] in mmol/L to non-numeric Serum Health Serum or Plasma results) System Chloride 100 Below low normal Chloride, [facility] [Moles/volume] in mmol/L Serum Health Serum or Plasma System Carbon dioxide, 28.4 Normal (applies CO2, Serum [facility] total mmol/L to non-numeric Health [Moles/volume] in results) System Serum or Plasma TotalProtein 7.6 Normal (applies Total Protein [facility] mg/dl to non-numeric Health results) System Glucose 82 Normal (applies Glucose, [facility] [Mass/volume] in mg/dL to non-numeric Serum Health Serum or Plasma results) System Urea nitrogen 13 Normal (applies Blood Urea [facility] [Mass/volume] in mg/dl to non-numeric Nitrogen, Health Serum or Plasma results) Serum System Creatinine 0.81 Normal (applies Creatinine, [facility] [Mass/volume] in mg/dl to non-numeric Serum Health Serum or Plasma results) System Alkaline 58 Normal (applies Alkaline [facility] phosphatase {IU/L} to non-numeric Phosphatase, Health isoenzymes results) Serum System [Enzymatic activity/volume] in Serum or Plasma by Heat stability Bilirubin.total 0.5 Normal (applies Bilirubin, [facility] [Mass/volume] in mg/dl to non-numeric Serum Total Health Serum or Plasma results) System DirectBilirubin 0.1 Normal (applies Direct [facility] mg/dl to non-numeric Bilirubin Health results) System Aspartate 63 Above high Aspartate [facility] aminotransferase {IU/L} normal Transaminase, Health [Enzymatic Serum System activity/volume] in Serum or Plasma by With P-5'-P Albumin 4.0 Normal (applies Albumin, [facility] [Mass/volume] in {gm/dl} to non-numeric Serum Health Serum or Plasma results) System I.Phosphorus 4.2 Normal (applies I. Phosphorus [facility] mg/dl to non-numeric Health results) System Alanine 49 Above high Alanine [facility] aminotransferase {IU/L} normal Aminotransfer Health [Enzymatic ase, Serum System activity/volume] in Serum or Plasma Calcium 9.0 Normal (applies Calcium, [facility] [Mass/volume] in mg/dl to non-numeric Total Serum Health Serum or Plasma results) System A/GRatio 1.11 Normal (applies A/G Ratio [facility] to non-numeric Health results) System Urate 6.7 Normal (applies Uric Acid, [facility] [Mass/volume] in mg/dl to non-numeric Serum Health Serum or Plasma results) System Anion gap in Serum 6.60 Normal (applies Anion Gap [facility] or Plasma mmol/L to non-numeric Health results) System Glomerular > 90 Normal (applies GFR [facility] filtration to non-numeric Health rate/1.73 sq results) System M.predicted [Volume Rate/Area] in Serum or Plasma by Creatinine-based formula (CKD-EPI) eGFR will provide clinicians with a more accurate indicator of renal function then the serum creatinine. The eGFR is automa tically calculated from an empiric formula (endorsed by the National Kidney [employer] ion) which incorporates age, sex, and race.Clinicians may notice surprisingly low GFR's with serum creatinine valueswithin normal range- particularly in elderly wo men (with low muscle mass).In the hospital setting, the eGFR should add an element of safety in drug dosing, in assessing the risk of IV contrast administration, and in assessing vascular risk.The NKF staging system is as follows:Normal: eGFR >90 with no kidney markersStage 1: eGFR >90 with kidney markers*Stage 2: eGFR 60- 89Stage 3: eGFR 30-59Stage 4: eGFR 15-29Stage 5: eGFR <15 (usually requir ing dialysis)*Markers include: Proteinuria, Hematuria, abnormal imaging-studies, or other blood or urine test abnormalities ID Date Data Source [id number] 08/10/2014 11:53:00 AM EST [facility] Name Value Range Interpretation Description Data Sup porting Code Source(s) Document(s ) Creatine 1060 Above high normal Creatine [facility] kinase.MB {IU/L} Kinase, Serum Health System [Mass/volume ] in Serum or Plasma ID Date Data Source [id number] 11/07/2014 09:52:09 AM EDT [facility] Name Value Range Interpretation Description Data Sup porting Code Source(s) Document(s ) Leukocytes 5.6 Normal (applies WBC Count [facility] [#/volume] in {10^3_uL to non-numeric Health Unspecified } results) System specimen by Automated count Erythrocytes 4.67 Normal (applies RBC Count [facility] [#/volume] in {10^6_uL to non-numeric Health Blood by } results) System Automated count Hemoglobin 13.9 Below low normal Hemoglobin [facility] [Mass/volume] in {gm/dL} Health Blood System Hematocrit 41.4 % Normal (applies Hematocrit [facility] [Volume to non-numeric Health Fraction] of results) System Blood Erythrocyte mean 88.7 fl Normal (applies MCV [facility] corpuscular to non-numeric Health volume [Entitic results) System volume] by Automated count Erythrocyte mean 29.8 pg Normal (applies MCH [facility] corpuscular to non-numeric Health hemoglobin results) System [Entitic mass] by Automated count Erythrocyte mean 33.6 Normal (applies MCHC [facility] corpuscular {gm/dL} to non-numeric Health hemoglobin results) System concentration [Mass/volume] by Automated count Erythrocyte 16.3 % Above high normal RDW-CV [facility] distribution Health width [Entitic System volume] by Automated count Platelets 219 Normal (applies Platelet [facility] [#/volume] in {10^3_uL to non-numeric Count Health Plasma by } results) System Automated count Platelet mean 11.0 fl Above high normal MPV [facility] volume [Entitic Health volume] in Blood System by Automated count Monocytes 0.7 Normal (applies Monocyte # [facility] [#/volume] in {10^3_uL to non-numeric Health Blood by Manual } results) System count Eosinophils 0.22 Normal (applies Eosinophil # [facility] [#/volume] in {10^3_uL to non-numeric Health Blood } results) System Neutrophils 3.6 Normal (applies Neutrophil # [facility] [#/volume] in {10^3_uL to non-numeric Health Body fluid } results) System Basophils 0.07 Normal (applies Basophil # [facility] [#/volume] in {10^3_uL to non-numeric Health Blood by } results) System Automated count Lymphocyte 0.9 Below low normal Lymphocyte # [facility] percent {10^3_uL Health differential } System count (procedure) Neutrophils/100 64.8 % Normal (applies Neutrophil % [facility] leukocytes in to non-numeric Health Blood by results) System Automated count Monocytes/100 13.3 % Normal (applies Monocyte % [facility] leukocytes in to non-numeric Health Blood results) System Eosinophils/100 3.9 % Above high normal Eosinophil % [facility] leukocytes in Health Unspecified System specimen Basophils/100 1.3 % Above high normal Basophil % [facility] leukocytes in Health Unspecified System specimen by Manual count Lymphocytes 16.7 % Below low normal Lymphocyte % [facility] [#/volume] in Health Blood by System Automated count ID Date Data Source [id number] 11/07/2014 09:52:09 AM EDT [facility] System Name Value Range Interpretation Description Data Sup porting Code Source(s) Document(s ) Sodium 141 Normal (applies Sodium, Serum [facility] [Moles/volume] in mmol/L to non-numeric Health Serum or Plasma results) System Potassium 4.5 Normal (applies Potassium, [facility] [Mass/volume] in mmol/L to non-numeric Serum Health Serum or Plasma results) System Chloride 103 Normal (applies Chloride, [facility] [Moles/volume] in mmol/L to non-numeric Serum Health Serum or Plasma results) System Carbon dioxide, 27.0 Normal (applies CO2, Serum [facility] total mmol/L to non-numeric Health [Moles/volume] in results) System Serum or Plasma TotalProtein 7.9 Normal (applies Total Protein [facility] mg/dl to non-numeric Health results) System Glucose 94 Normal (applies Glucose, [facility] [Mass/volume] in mg/dL to non-numeric Serum Health Serum or Plasma results) System Urea nitrogen 11 Normal (applies Blood Urea [facility] [Mass/volume] in mg/dl to non-numeric Nitrogen, Health Serum or Plasma results) Serum System Creatinine 0.80 Normal (applies Creatinine, [facility] [Mass/volume] in mg/dl to non-numeric Serum Health Serum or Plasma results) System Alkaline 63 Normal (applies Alkaline [facility] phosphatase {IU/L} to non-numeric Phosphatase, Health isoenzymes results) Serum System [Enzymatic activity/volume] in Serum or Plasma by Heat stability Bilirubin.total 0.6 Normal (applies Bilirubin, [facility] [Mass/volume] in mg/dl to non-numeric Serum Total Health Serum or Plasma results) System DirectBilirubin 0.2 Normal (applies Direct [facility] mg/dl to non-numeric Bilirubin Health results) System Aspartate 94 Above high Aspartate [facility] aminotransferase {IU/L} normal Transaminase, Health [Enzymatic Serum System activity/volume] in Serum or Plasma by With P-5'-P Albumin 4.2 Normal (applies Albumin, [facility] [Mass/volume] in {gm/dl} to non-numeric Serum Health Serum or Plasma results) System I.Phosphorus 3.6 Normal (applies I. Phosphorus [facility] mg/dl to non-numeric Health results) System Alanine 61 Above high Alanine [facility] aminotransferase {IU/L} normal Aminotransfer Health [Enzymatic ase, Serum System activity/volume] in Serum or Plasma Calcium 9.0 Normal (applies Calcium, [facility] [Mass/volume] in mg/dl to non-numeric Total Serum Health Serum or Plasma results) System A/GRatio 1.14 Normal (applies A/G Ratio [facility] to non-numeric Health results) System Urate 7.1 Normal (applies Uric Acid, [facility] [Mass/volume] in mg/dl to non-numeric Serum Health Serum or Plasma results) System Anion gap in Serum 11.00 Normal (applies Anion Gap [facility] or Plasma mmol/L to non-numeric Health results) System Glomerular > 90 Normal (applies GFR [facility] filtration to non-numeric Health rate/1.73 sq results) System M.predicted [Volume Rate/Area] in Serum or Plasma by Creatinine-based formula (CKD-EPI) eGFR will provide clinicians with a more accurate indicator of renal function then the serum creatinine. The eGFR is automa tically calculated from an empiric formula (endorsed by the National Kidney [employer] ion) which incorporates age, sex, and race.Clinicians may notice surprisingly low GFR's with serum creatinine valueswithin normal range- particularly in elderly wo men (with low muscle mass).In the hospital setting, the eGFR should add an element of safety in drug dosing, in assessing the risk of IV contrast administration, and in assessing vascular risk.The NKF staging system is as follows:Normal: eGFR >90 with no kidney markersStage 1: eGFR >90 with kidney markers*Stage 2: eGFR 60- 89Stage 3: eGFR 30-59Stage 4: eGFR 15-29Stage 5: eGFR <15 (usually requir ing dialysis)*Markers include: Proteinuria, Hematuria, abnormal imaging-studies, or other blood or urine test abnormalities ID Date Data Source [id number] 11/07/2014 09:52:09 AM EDT [facility] System Name Value Range Interpretation Description Data Sup porting Code Source(s) Document(s ) Creatine 1714 Above high normal Creatine [facility] kinase.MB {IU/L} Kinase, Serum Health System [Mass/volume ] in Serum or Plasma ID Date Data Source [id number] 11/07/2014 11:28:00 AM EDT [facility] Name Value Range Interpretation Description Data Sup porting Code Source(s) Document(s ) Quantit Negative Normal (applies Quantiteron-TB [facility] geraldine-TB Negative test to non-numeric Gold. Health Sys tem Gold. result. M. results) tuberculosis complex infection unlikely. NIL 0.03 {IU/mL} Normal (applies NIL [facility] to non-numeric Health System results) TBAG-NI < 0.00 Normal (applies TB AG-NIL [facility] L to non-numeric Health System results) Mitogen 4.93 {IU/mL} Normal (applies Mitogen-NIL [facility] -NIL to non-numeric Health System results) The Nil tube value is used to determine if the patient has a preexisting immune response which could cause a fals e- positive reading on the test. In order for a test to be valid, the Nil tube must have a value of <=8.0 IU/mL. The mitogen control tub e is used to assure the patient has a healthy immune status and also serves as a control for correct blood handling and incubation. It is used to detect false-negative readings. The mitogen tube must have a gamma interfero n value >=0.5 IU/mL higher than the value of the Nil tube. The TB A ntigen tube is coated with the M. tuberculosis specific antigens. For a test to be considered positive, the TB antigen tube value minus the Nil tube value must be >=0.35 IU/mL. For additional information, please refer to http://education.ftopia.Tempered Mind/fa q/QFT (This link is being provided for informational/educational pu rposes only.) Test Performed at: [facility], [place] [address] Andres Leon M.D. ID Date Data Source [id number] 11/07/2014 12:57:00 PM EDT [facility] Name Value Range Interpretation Description Data Sup porting Code Source(s) Document(s ) Human SEE TEXT NOT Normal (applies HIV 1 [facility] immunodeficien DETECTEDWe are to non-numeric Genotype Healt h cy virus unable to results) System antibody titer obtain a measurement Genotype from (procedure) thissample. The most common reasons for failureto genotype are insufficient viral load,mutations in the viral genome at the assaypriming sites, and presence of inhibitorysubst ance in the sample. Please correlatethis result with any recent viral load forthis patient and resubmit if clinicallywarra nted. A minimum viral load of 400copies/mL is required for testing.HIV Subtype: NOT DETERMINED Antire troviral drugs Resistance Mutations Detected Predicted ! ! NRTIs ! !ZDV (zidovudine or Retrovir) !N/A!ABC (abacavir or Ziagen) !N/A!ddI (didanosine or Videx) !N/A!3TC (lamivudine or Epivir) !N/A!FTC (emtricitabine or Emtriva) !N/A!d4T (stavudine or Zerit) !N/A!TDF (tenofovir or Viread) !N/A! !___!___ ____ ! ! NNRTIs ! !ETR (etravirine or Intelence) !N/A!EFV (efavirenz or Sustiva) !N/A!NVP (nevirapine or Viramune) !N/A!RPV (rilpivirine or Edurant) !N/A! !___!___ ____ ! ! PIs ! !FPV (fos-amprenavir or Lexiva) !N/A!IDV (indinavir or Crixivan) !N/A!NFV (nelfinavir or Viracept) !N/A!SQV (saquinavir or Invirase) !N/A!LPV (lopinavir or Kaletra) !N/A!ATV (atazanavir or Reyataz) !N/A!TPV (tipranavir or Aptivus) !N/A!DRV (darunavir or Prezista) !N/A! ! ! ___!___! PRB = PROBABLE OR EMERGING RESISTANCEOTHER MUTATIONS DETECTED:RT GENE MUTATIONS: N/APR GENE MUTATIONS: N/A __The [employer] [facility] [employer] November 2013 Interpretation AlgorithmThe method used in this test is RT-PCR and sequencing ofthe HIV-1 polymerase gene. The phrases "resistance predicted" and "probable oremerging resistance" refer to the application of theinterpretive rules. The FDA has not reviewedall of the interpretive rules used by the laboratory topredict drug resistance. FDA may not currently recognizesome of the HIV gene mutations reported as predictive ofdrug resistance, but the laboratory considers thesemutations to be associated with resistance to anti-viraldrugs based on current clinical or scientific studies. Thetest has been validated pursuant to CLIA regulations and isnot considered investigational or for research use only.Treatment decisions should be made in consideration of allrelevant clinical and laboratory findings and theprescribing information for the drugs. This test was developed and its performance characteristics have been determined by [facility]. Performancechar acteristics refer to the analytical performance of thetest. This test was performed at: [facility] [id number] [place] [id number] Test Performed at: [employer] [employer] [employer] [address] [place], [place] [address] Dr. Nuno Jimenez M.D.Result Reporting|Telep [place]|DR EDUARDO| 11/08/2014 at 1:49 PMCalled to:DR BOBO Felipe Name:JACKLYN ARRIOLAReadback by:LEFT MESSAGE 11/08/2014 / 1:48 PMResult Reporting|Telep [place]|Dr. Arthur| 11/12/2014 at 4:27 PMCalled to:Dr. Markham Name:RPReadback by:Dr. Arthur 11/12/2014 / 4:26 PMResult Reporting|Telep [place]|Dr. Arthur| 11/12/2014 at 4:28 PMCalled to:Dr. Markham Name:RPReadback by: 11/12/2014 / 4:28 PMResult Reporting|Telep [place]|Dr. Kurzt| 11/18/2014 at 1:27 PMCalled to:Dr. Kurtz on [facility] Name:Rp Readback by: 11/18/2014 / 1:25 PM ID Date Data Source [id number] 11/07/2014 12:57:00 PM EDT [facility] Name Value Range Interpretation Description Data Sup porting Code Source(s) Document(s ) FTA,Ser ReactiveReference Abnormal FTA, Serum [facility] um Range: Nonreactive (applies to Health Test Performed at: non-numeric System [facility] results) [place] [address] Andres Leon M.D. Result Reporting|Telephone |DR EDUARDO| 11/08/2014 at 1:49 PMCalled to:DR BOBO Felipe Name:JACKLYN Mcclain by:LEFT MESSAGE 11/08/2014 / 1:48 PMResult Reporting|Telephone |Dr. Arthur| 11/12/2014 at 4:27 PMCalled to:Dr. Markham Name:RPReadback by:Dr. Arthur 11/12/2014 / 4:26 PMResult Reporting|Telephone |Dr. Arthur| 11/12/2014 at 4:28 PMCalled to:Dr. ArthurTech Name:RPReadback by: 11/12/2014 / 4:28 PMResult Reporting|Telephone |Dr. Kurtz| 11/18/2014 at 1:27 PMCalled to:Dr. Kurtz on [employer] Name:Rp Readback by: 11/18/2014 / 1:25 PM ID Date Data Source [id number] 11/07/2014 12:57:00 PM EDT [facility] Name Value Range Interpretation Description Data Sup porting Code Source(s) Document(s ) TotalB-CD1 2 {Percent} Below low normal Total B-CD19 [facility] TotalT-CD3 69 Normal (applies Total T-CD3 [facility] to non-numeric Health results) System T-HelperCD 37 Normal (applies T-[place] CD4+ [facility] 4+ to non-numeric Health results) System TSuppresso 27 Normal (applies T Suppressor [facility] rCD8+ to non-numeric CD8+ Health results) System [place]/Sup 1.35 Normal (applies [place]/Suppres [facility] pressor to non-numeric sor Health results) System Message SEE NOTE Normal (applies Message [facility] Lymphocyte to non-numeric Health subset results) System results confirmed by repeat analysis. Test Performed at: [email or web address], [place] [address] Andres Leon M.D. LymphRel.C 755 Below low normal Lymph Rel. [facility] ount {Cells/mcL} Count Health System CD19 < 20 Below low normal CD19 [facility] CD3 500 Below low normal CD3 [facility] {Cells/mcL} Health System HelperCD4+ 260 Below low normal [place] CD4+ [facility] {Cells/mcL} Health System SuppressCD 193 Normal (applies Suppress CD8+ [facility] 8+ to non-numeric Health results) System ID Date Data Source [id number] 11/07/2014 12:57:00 PM EDT [facility] Name Value Range Interpretation Description Data Source(s ) Supporting Code Document(s ) Reagin Ab 1:4 Normal (applies to Titer-RPR [facility] [Titer] in non-numeric Health System Serum by results) RPR Reagin Ab Reactive Abnormal (applies RPR. [facility] [Presence] to non-numeric Health System in Serum by results) RPR ID Date Data Source [id number] 12/09/2014 12:23:00 PM EDT [facility] System Name Value Range Interpretation Description Data Sup porting Code Source(s) Document(s ) C.Trac Not Normal (applies C. [facility] homati DetectedReference to non-numeric Trachomatis [facility]alt h sAmp Range: Not Detected results) Amp System N.Gono Not Normal (applies N. Gonorrhea [facility] rrheab DetectedReference to non-numeric by [facility] Health yLCR Range: Not Detected results) System This test was performed using the APTIMA COMBO2(R) Assay (GENArviragoPROBE(R)). Test Performed at: [email or web address] [employer], [place] [address] Andres Leon M.D. ID Date Data Source [id number] 12/09/2014 12:23:00 PM EDT [facility] System Name Value Range Interpretation Description Data Sup porting Code Source(s) Document(s ) CultureBacteriaT Micro Result Normal (applies Culture [facility] hroat Final Culture to non-numeric Bacteria Health Reading results) Throat System Note::NO BETA HEMOLYTIC STREPTOCOCCI ISOLATEDNO GC ISOLATED ID Date Data Source [id number] 12/25/2014 06:19:00 PM EDT [facility] System Name Value Range Interpretation Description Data Sup porting Code Source(s) Document(s ) Prothrombintim 13.10 Normal (applies Prothrombin [facility](PT) {seconds to non-numeric time (PT) Health System } results) Prothrombin Ab 1.20 Above high normal INR Result [facility] [Units/volume] {Ratio} Health System in Serum or Plasma Normal = 0.7-1.1Therapeutic = 2.0-3.0Mec hanical Heart = 3.0-4.5 ID Date Data Source [id number] 12/25/2014 06:19:00 PM EDT [facility] System Name Value Range Interpretation Description Data Sup porting Code Source(s) Document(s ) Leukocytes 8.5 Normal (applies WBC Count [facility] [#/volume] in {10^3_uL to non-numeric Health Unspecified } results) System specimen by Automated count Erythrocytes 4.60 Below low normal RBC Count [facility] [#/volume] in {10^6_uL Health Blood by } System Automated count Hemoglobin 13.7 Below low normal Hemoglobin [facility] [Mass/volume] in {gm/dL} Health Blood System Hematocrit 39.2 % Below low normal Hematocrit [facility] [Volume Health Fraction] of System Blood Erythrocyte mean 85.2 fl Normal (applies MCV [facility] corpuscular to non-numeric Health volume [Entitic results) System volume] by Automated count Erythrocyte mean 29.8 pg Normal (applies MCH [facility] corpuscular to non-numeric Health hemoglobin results) System [Entitic mass] by Automated count Erythrocyte mean 34.9 Normal (applies MCHC [facility] corpuscular {gm/dL} to non-numeric Health hemoglobin results) System concentration [Mass/volume] by Automated count Erythrocyte 14.1 % Normal (applies RDW-CV [facility] distribution to non-numeric Health width [Entitic results) System volume] by Automated count Platelets 222 Normal (applies Platelet Count [facility] [#/volume] in {10^3_uL to non-numeric Health Plasma by } results) System Automated count Platelet mean 9.8 fl Normal (applies MPV [facility] volume [Entitic to non-numeric Health volume] in Blood results) System by Automated count Nucleated 0.0 Normal (applies NRBC % [facility] erythrocytes {/100_WB to non-numeric Health [#/volume] in C} results) System Body fluid NRBC# 0.00 Normal (applies NRBC # [facility] {10^6_uL to non-numeric Health } results) System Neutrophils/100 73.2 % Normal (applies Neutrophil % [place] patience leukocytes in to non-numeric Health Blood by results) System Automated count Neutrophils 6.2 Normal (applies Neutrophil # [facility] [#/volume] in {10^3_uL to non-numeric Health Body fluid } results) System Lymphocytes 8.5 % Below low normal Lymphocyte % [facility] [#/volume] in Health Blood by System Automated count Lymphocyte 0.7 Below low normal Lymphocyte # [facility] percent {10^3_uL Health differential } System count (procedure) Monocytes/100 11.5 % Above high Monocyte % [facility] leukocytes in normal Health Blood System Monocytes 1.0 Normal (applies Monocyte # [facility] [#/volume] in {10^3_uL to non-numeric Health Blood by Manual } results) System count Eosinophils/100 1.3 % Normal (applies Eosinophil % [place] patience leukocytes in to non-numeric Health Unspecified results) System specimen Eosinophils 0.11 Normal (applies Eosinophil # [facility] [#/volume] in {10^3_uL to non-numeric Health Blood } results) System Basophils/100 0.7 % Normal (applies Basophil % [facility] leukocytes in to non-numeric Health Unspecified results) System specimen by Manual count Basophils 0.06 Normal (applies Basophil # [facility] [#/volume] in {10^3_uL to non-numeric Health Blood by } results) System Automated count ImmatureGranuloc 0.41 Above high Immature [facility] ytes# {10^3_uL normal Granulocytes # Health } System ImmatureGranuloc 4.8 % Above high Immature [facility] ytes% normal Granulocytes % Health System ID Date Data Source [id number] 12/25/2014 06:19:00 PM EDT [facility] Name Value Range Interpretation Description Data Sup porting Code Source(s) Document(s ) Sodium 135 Normal (applies Sodium, Serum [facility] [Moles/volume] in mmol/L to non-numeric Health Serum or Plasma results) System Potassium 3.5 Normal (applies Potassium, [facility] [Mass/volume] in mmol/L to non-numeric Serum Health Serum or Plasma results) System Chloride 99 Below low normal Chloride, [facility] [Moles/volume] in mmol/L Serum Health Serum or Plasma System Carbon dioxide, 29.0 Normal (applies CO2, Serum [facility] total mmol/L to non-numeric Health [Moles/volume] in results) System Serum or Plasma TotalProtein 7.4 Normal (applies Total Protein [facility] mg/dl to non-numeric Health results) System Glucose 91 Normal (applies Glucose, [facility] [Mass/volume] in mg/dL to non-numeric Serum Health Serum or Plasma results) System Urea nitrogen 14 Normal (applies Blood Urea [facility] [Mass/volume] in mg/dl to non-numeric Nitrogen, Health Serum or Plasma results) Serum System Creatinine 0.59 Normal (applies Creatinine, [facility] [Mass/volume] in mg/dl to non-numeric Serum Health Serum or Plasma results) System Alkaline 47 Normal (applies Alkaline [facility] phosphatase {IU/L} to non-numeric Phosphatase, Health isoenzymes results) Serum System [Enzymatic activity/volume] in Serum or Plasma by Heat stability Bilirubin.total 0.6 Normal (applies Bilirubin, [facility] [Mass/volume] in mg/dl to non-numeric Serum Total Health Serum or Plasma results) System DirectBilirubin 0.1 Normal (applies Direct [facility] mg/dl to non-numeric Bilirubin Health results) System Aspartate 400 Above high Aspartate [facility] aminotransferase {IU/L} normal Transaminase, Health [Enzymatic Serum System activity/volume] in Serum or Plasma by With P-5'-P Albumin 3.7 Normal (applies Albumin, [facility] [Mass/volume] in {gm/dl} to non-numeric Serum Health Serum or Plasma results) System I.Phosphorus 3.4 Normal (applies I. Phosphorus [facility] mg/dl to non-numeric Health results) System Alanine 220 Above high Alanine [facility] aminotransferase {IU/L} normal Aminotransfer Health [Enzymatic ase, Serum System activity/volume] in Serum or Plasma Calcium 9.0 Normal (applies Calcium, [facility] [Mass/volume] in mg/dl to non-numeric Total Serum Health Serum or Plasma results) System A/GRatio 1.00 Normal (applies A/G Ratio [facility] to non-numeric Health results) System Urate 5.9 Normal (applies Uric Acid, [facility] [Mass/volume] in mg/dl to non-numeric Serum Health Serum or Plasma results) System Anion gap in Serum 7.00 Normal (applies Anion Gap [place] patience or Plasma mmol/L to non-numeric Health results) System Glomerular > 90 Normal (applies GFR [facility] filtration to non-numeric Health rate/1.73 sq results) System M.predicted [Volume Rate/Area] in Serum or Plasma by Creatinine-based formula (CKD-EPI) eGFR will provide clinicians with a more accurate indicator of renal function then the serum creatinine. The eGFR is automa tically calculated from an empiric formula (endorsed by the National Kid[employer] ion) which incorporates age, sex, and race.Clinicians may notice surprisingly low GFR's with serum creatinine valueswithin normal range- particularly in elderly wo men (with low muscle mass).In the hospital setting, the eGFR should add an element of safety in drug dosing, in assessing the risk of IV contrast administration, and in assessing vascular risk.The NKF staging system is as follows:Normal: eGFR >90 with no kidney markersStage 1: eGFR >90 with kidney markers*Stage 2: eGFR 60- 89Stage 3: eGFR 30-59Stage 4: eGFR 15-29Stage 5: eGFR <15 (usually requir ing dialysis)*Markers include: Proteinuria, Hematuria, abnormal imaging-studies, or other blood or urine test abnormalities ID Date Data Source [id number] 12/25/2014 06:19:00 PM EDT [facility] Name Value Range Interpretation Description Data Sup porting Code Source(s) Document(s ) TroponinIQuantitative 0.20 Normal (applies Troponin I [facility] ng/ml to non-numeric Quantitative Health results) System ID Date Data Source [id number] 12/25/2014 06:19:00 PM EDT [facility] Name Value Range Interpretation Description Data Sup porting Code Source(s) Document(s ) Creatine 1145 Above high normal Creatine [facility] kinase.MB {IU/L} Kinase, Serum Health System [Mass/volume ] in Serum or Plasma ID Date Data Source [id number] 12/25/2014 06:19:00 PM EDT [facility] Name Value Range Interpretation Description Data Sup porting Code Source(s) Document(s ) Bacteria NO GROWTH Culture [facility] identified in Bacteria Blood Health Syst em Blood by Aer[facility] culture ID Date Data Source [id number] 12/25/2014 06:19:00 PM EDT [facility] Name Value Range Interpretation Description Data Sup porting Code Source(s) Document(s ) Bacteria NO GROWTH Culture [facility] identified in Bacteria Blood Health Syst em Blood by [facility] culture ID Date Data Source [id number] 12/25/2014 07:08:00 PM EDT [facility] Name Value Range Interpretation Description Data Source(s ) Supporting Code Document(s ) LacticAc 2.0 Above high normal Lactic Acid [facility] idWholeB mmol/L Whole Blood Health System lood*NEW *PAUL CARTER ONLY* ONLY* ID Date Data Source [id number] 12/26/2014 12:08:00 AM EDT [facility] Name Value Range Interpretation Description Data Sup porting Code Source(s) Document(s ) Color Allyssa Normal (applies Color [facility] to non-numeric Health results) System Appearance of HAZY Normal (applies Urine [facility] Urine to non-numeric Appearance Health results) System Specific gravity 1.031 Normal (applies Urine Specific [facility] of Urine to non-numeric [facility] results) System pH.. 6.0 Normal (applies pH.. [facility] {pH_uni to non-numeric Health ts} results) System Glucose,UA NEG Normal (applies Glucose, UA [facility] to non-numeric Health results) System Protein 30 Normal (applies Protein [facility] [Mass/volume] in mg/dl to non-numeric Health Serum or Plasma results) System BilirubinUrine NEG Normal (applies Bilirubin [facility] to non-numeric Urine Health results) System Urobilinogen > =4.0 Normal (applies Urobilinogen [facility] [Mass/volume] in to non-numeric UA Health Urine results) System Reference Range: Negative or <=2.0 Ketones [Mass/volume] NEG Normal (applies Ketones UA [facility] in Urine to non-numeric Health System results) Nitrate+Nitrite Negative Normal (applies Nitrite [facility] [Mass/volume] in to non-numeric Health S ystem Unspecified specimen results) Leukocyte esterase NEG Normal (applies Leukocyte Fadia ase [facility] [Units/volume] in Urine to non-numeric Concentrati on Health System results) Leukocytes [#/volume] 1 {/HPF} Normal (applies White Blood Cells [facility] in Unspecified specimen to non-numeric H ealth System by Automated count results) RedBloodCells 2 {/HPF} Normal (applies Red Blood Cells [facility] to non-numeric Health System results) Mucus MOD Normal (applies Mucus [facility] to non-numeric Health System results) Bacteria [Presence] in FEW Normal (applies Bacteria [facility] Unspecified specimen to non-numeric Heal th System results) AmorphousCrystals FEW Normal (applies Amorphous Shaila ls [facility] to non-numeric Health System results) UrineBlood SM(1+) Abnormal Urine Blood [facility] (applies to Health System non-numeric results) ID Date Data Source [id number] 12/26/2014 06:00:00 AM EDT [facility] Name Value Range Interpretation Description Data Sup porting Code Source(s) Document(s ) Polys 92 % Above high normal Polys [facility] Lymphocyte%. 4 % Below low normal Lymphocyte %. [facility] Platelets Adequate Normal (applies Platelet Count [facility] [#/volume] in to non-numeric Estimate Health Syst em Blood by results) Estimate Monocyte%. 0 % Below low normal Monocyte %. [facility] NORM Yes Normal (applies NORM [facility] to non-numeric Health System results) Myelocytes 4 % Above high normal Myelocyte [facility] [#/volume] in Count Health System Blood ID Date Data Source [id number] 12/26/2014 06:00:00 AM EDT [facility] Name Value Range Interpretation Description Data Sup porting Code Source(s) Document(s ) Leukocytes 6.6 Normal (applies WBC Count [facility] [#/volume] in {10^3_uL to non-numeric Health Unspecified } results) System specimen by Automated count Erythrocytes 4.35 Below low normal RBC Count [facility] [#/volume] in {10^6_uL Health Blood by } System Automated count Hemoglobin 12.7 Below low normal Hemoglobin [facility] [Mass/volume] in {gm/dL} [facility] Hematocrit 37.7 % Below low normal Hematocrit [facility] [Volume Health Fraction] of System Blood Erythrocyte mean 86.7 fl Normal (applies MCV [facility] corpuscular to non-numeric Health volume [Entitic results) System volume] by Automated count Erythrocyte mean 29.2 pg Normal (applies MCH [facility] corpuscular to non-numeric Health hemoglobin results) System [Entitic mass] by Automated count Erythrocyte mean 33.7 Normal (applies MCHC [facility] corpuscular {gm/dL} to non-numeric Health hemoglobin results) System concentration [Mass/volume] by Automated count Erythrocyte 14.0 % Normal (applies RDW-CV [facility] distribution to non-numeric Health width [Entitic results) System volume] by Automated count Platelets 206 Normal (applies Platelet Count [facility] [#/volume] in {10^3_uL to non-numeric Health Plasma by } results) System Automated count Platelet mean 10.3 fl Normal (applies MPV [facility] volume [Entitic to non-numeric Health volume] in Blood results) System by Automated count Nucleated 0.0 Normal (applies NRBC % [facility] erythrocytes {/100_WB to non-numeric Health [#/volume] in C} results) System Body fluid NRBC# 0.00 Normal (applies NRBC # [facility] {10^6_uL to non-numeric Health } results) System Neutrophils/100 85.9 % Above high Neutrophil % [facility] leukocytes in normal Health Blood by System Automated count Neutrophils 5.7 Normal (applies Neutrophil # [facility] [#/volume] in {10^3_uL to non-numeric Health Body fluid } results) System Lymphocytes 7.1 % Below low normal Lymphocyte % [facility] [#/volume] in Health Blood by System Automated count Lymphocyte 0.5 Below low normal Lymphocyte # [facility] percent {10^3_uL Health differential } System count (procedure) Monocytes/100 2.6 % Normal (applies Monocyte % [facility] leukocytes in to non-numeric Health Blood results) System Monocytes 0.2 Normal (applies Monocyte # [facility] [#/volume] in {10^3_uL to non-numeric Health Blood by Manual } results) System count Eosinophils/100 0.2 % Normal (applies Eosinophil % [place] patience leukocytes in to non-numeric Health Unspecified results) System specimen Eosinophils 0.01 Normal (applies Eosinophil # [facility] [#/volume] in {10^3_uL to non-numeric Health Blood } results) System Basophils/100 0.3 % Normal (applies Basophil % [facility] leukocytes in to non-numeric Health Unspecified results) System specimen by Manual count Basophils 0.02 Normal (applies Basophil # [facility] [#/volume] in {10^3_uL to non-numeric Health Blood by } results) System Automated count ImmatureGranuloc 0.26 Above high Immature [facility] ytes# {10^3_uL normal Granulocytes # Health } System ImmatureGranuloc 3.9 % Above high Immature [facility] ytes% normal Granulocytes % Health System ID Date Data Source [id number] 12/26/2014 06:00:00 AM EDT [facility] Name Value Range Interpretation Description Data Sup porting Code Source(s) Document(s ) Sodium 136 Normal (applies Sodium, Serum [facility] [Moles/volume] in mmol/L to non-numeric Health Serum or Plasma results) System Potassium 4.7 Normal (applies Potassium, [facility] [Mass/volume] in mmol/L to non-numeric Serum Health Serum or Plasma results) System Chloride 103 Normal (applies Chloride, [facility] [Moles/volume] in mmol/L to non-numeric Serum Health Serum or Plasma results) System Carbon dioxide, 28.3 Normal (applies CO2, Serum [facility] total mmol/L to non-numeric Health [Moles/volume] in results) System Serum or Plasma TotalProtein 6.8 Normal (applies Total Protein [facility] mg/dl to non-numeric Health results) System Glucose 132 Above high Glucose, [facility] [Mass/volume] in mg/dL normal Serum Health Serum or Plasma System Urea nitrogen 12 Normal (applies Blood Urea [facility] [Mass/volume] in mg/dl to non-numeric Nitrogen, Health Serum or Plasma results) Serum System Creatinine 0.51 Normal (applies Creatinine, [facility] [Mass/volume] in mg/dl to non-numeric Serum Health Serum or Plasma results) System Alkaline 45 Normal (applies Alkaline [facility] phosphatase {IU/L} to non-numeric Phosphatase, Health isoenzymes results) Serum System [Enzymatic activity/volume] in Serum or Plasma by Heat stability Bilirubin.total 0.4 Normal (applies Bilirubin, [facility] [Mass/volume] in mg/dl to non-numeric Serum Total Health Serum or Plasma results) System DirectBilirubin 0.1 Normal (applies Direct [facility] mg/dl to non-numeric Bilirubin Health results) System Aspartate 340 Above high Aspartate [facility] aminotransferase {IU/L} normal Transaminase, Health [Enzymatic Serum System activity/volume] in Serum or Plasma by With P-5'-P Albumin 3.3 Normal (applies Albumin, [facility] [Mass/volume] in {gm/dl} to non-numeric Serum Health Serum or Plasma results) System I.Phosphorus 3.4 Normal (applies I. Phosphorus [facility] mg/dl to non-numeric Health results) System Alanine 199 Above high Alanine [facility] aminotransferase {IU/L} normal Aminotransfer Health [Enzymatic ase, Serum System activity/volume] in Serum or Plasma Calcium 8.5 Normal (applies Calcium, [facility] [Mass/volume] in mg/dl to non-numeric Total Serum Health Serum or Plasma results) System A/GRatio 0.94 Normal (applies A/G Ratio [facility] to non-numeric Health results) System Urate 5.3 Normal (applies Uric Acid, [facility] [Mass/volume] in mg/dl to non-numeric Serum Health Serum or Plasma results) System Anion gap in Serum 4.70 Normal (applies Anion Gap [place] patience or Plasma mmol/L to non-numeric Health results) System Glomerular > 90 Normal (applies GFR [facility] filtration to non-numeric Health rate/1.73 sq results) System M.predicted [Volume Rate/Area] in Serum or Plasma by Creatinine-based formula (CKD-EPI) eGFR will provide clinicians with a more accurate indicator of renal function then the serum creatinine. The eGFR is automa tically calculated from an empiric formula (endorsed by the National Kidney [employer] ion) which incorporates age, sex, and race.Clinicians may notice surprisingly low GFR's with serum creatinine valueswithin normal range- particularly in elderly wo men (with low muscle mass).In the hospital setting, the eGFR should add an element of safety in drug dosing, in assessing the risk of IV contrast administration, and in assessing vascular risk.The NKF staging system is as follows:Normal: eGFR >90 with no kidney markersStage 1: eGFR >90 with kidney markers*Stage 2: eGFR 60- 89Stage 3: eGFR 30-59Stage 4: eGFR 15-29Stage 5: eGFR <15 (usually requir ing dialysis)*Markers include: Proteinuria, Hematuria, abnormal imaging-studies, or other blood or urine test abnormalities ID Date Data Source [id number] 12/26/2014 06:00:00 AM EDT [facility] System Name Value Range Interpretation Description Data Sup porting Code Source(s) Document(s ) Creatine 5466 Above high normal Creatine [facility] kinase.MB {IU/L} Kinase, Serum Health System [Mass/volume ] in Serum or Plasma ID Date Data Source [id number] 12/26/2014 09:01:00 AM EDT [facility] Name Value Range Interpretation Description Data Sup porting Code Source(s) Document(s ) TroponinIQuantitative 0.16 Normal (applies Troponin I [facility] ng/ml to non-numeric Quantitative Health results) System ID Date Data Source [id number] 12/26/2014 10:00:00 AM EDT [facility] System Name Value Range Interpretation Description Data Sup porting Code Source(s) Document(s ) HepatitisCRati 0.07 {Ratio} Normal (applies Hepatitis C [facility] o to non-numeric Ratio Health results) System HepatitisBSurf DNR Test Normal (applies Hepatitis B [facility] aceAntigenNeut Performed at: to non-numeric [facility] results) Antigen Neut [email or web address], [place] [address] Andres Leon M.D. HepatitisBCore Non Normal (applies Hepatitis B [facility] AntibodyIgM ReactiveReferen to non-numeric [facility] ce Range: Non results) Antibody IgM System Reactive Hepatitis A NonreactiveRefe Normal (applies Hepatitis A [facility] IgM antibody rence Range: to non-numeric IgM Antibody Health test Nonreactive results) System (procedure) HepatitisBSurf Non Normal (applies Hepatitis B [facility] aceAntigen. ReactiveReferen to non-numeric [facility] ce Range: Non results) Antigen. System Reactive HepatitisCVira Non Normal (applies Hepatitis C [facility] lAntibody ReactiveReferen to non-numeric [facility] ce Range: Non results) Antibody System Reactive ID Date Data Source [id number] 12/27/2014 06:00:00 AM EDT Jeanie grey System Name Value Range Interpretation Description Data Sup porting Code Source(s) Document(s ) FTA,Ser Reactive Abnormal FTA, Serum [facility] um MinimalReference (applies to Health Range: Nonreactive non-numeric System In the results) absence of historical or clinical evidence of treponemal infection, this test should be considered equivocal. A second specimen should be submitted for serologic testing. Test Performed at: [email or web address] [employer], [place] [address] Andres Leon M.D. Result Reporting|Telephone |LUANA GAITAN| 12/27/2014 at 3:14 PMCalled to:Kvng GAITAN Name:JACKLYN FINCHReadback by:BECCA CRAFT 12/27/2014 / 3:12 PM ID Date Data Source [id number] 12/27/2014 06:00:00 AM EDT [facility] Name Value Range Interpretation Description Data Sup porting Code Source(s) Document(s ) Leukocytes 6.8 Normal (applies WBC Count [facility] [#/volume] in {10^3_uL to non-numeric Health Unspecified } results) System specimen by Automated count Erythrocytes 4.20 Below low normal RBC Count [facility] [#/volume] in {10^6_uL Health Blood by } System Automated count Hemoglobin 12.4 Below low normal Hemoglobin [facility] [Mass/volume] in {gm/dL} Health Blood System Hematocrit 36.6 % Below low normal Hematocrit [facility] [Volume Health Fraction] of System Blood Erythrocyte mean 87.1 fl Normal (applies MCV [facility] corpuscular to non-numeric Health volume [Entitic results) System volume] by Automated count Erythrocyte mean 29.5 pg Normal (applies MCH [facility] [facility] corpuscular to non-numeric Health hemoglobin results) System [Entitic mass] by Automated count Erythrocyte mean 33.9 Normal (applies MCHC [facility] corpuscular {gm/dL} to non-numeric Health hemoglobin results) System concentration [Mass/volume] by Automated count Erythrocyte 14.0 % Normal (applies RDW-CV [facility] distribution to non-numeric Health width [Entitic results) System volume] by Automated count Platelets 196 Normal (applies Platelet Count [facility] [#/volume] in {10^3_uL to non-numeric Health Plasma by } results) System Automated count Platelet mean 9.9 fl Normal (applies MPV [facility] volume [Entitic to non-numeric Health volume] in Blood results) System by Automated count Nucleated 0.0 Normal (applies NRBC % [facility] erythrocytes {/100_WB to non-numeric Health [#/volume] in C} results) System Body fluid NRBC# 0.00 Normal (applies NRBC # [facility] {10^6_uL to non-numeric Health } results) System Neutrophils/100 69.7 % Normal (applies Neutrophil % [place] patience leukocytes in to non-numeric Health Blood by results) System Automated count Neutrophils 4.8 Normal (applies Neutrophil # [facility] [#/volume] in {10^3_uL to non-numeric Health Body fluid } results) System Lymphocytes 9.2 % Below low normal Lymphocyte % [facility] [#/volume] in Health Blood by System Automated count Lymphocyte 0.6 Below low normal Lymphocyte # [facility] percent {10^3_uL Health differential } System count (procedure) Monocytes/100 15.2 % Above high Monocyte % [facility] leukocytes in normal Health Blood System Monocytes 1.0 Normal (applies Monocyte # [facility] [#/volume] in {10^3_uL to non-numeric Health Blood by Manual } results) System count Eosinophils/100 1.2 % Normal (applies Eosinophil % [facility] patience leukocytes in to non-numeric Health Unspecified results) System specimen Eosinophils 0.08 Normal (applies Eosinophil # [facility] [#/volume] in {10^3_uL to non-numeric Health Blood } results) System Basophils/100 0.9 % Normal (applies Basophil % [facility] leukocytes in to non-numeric Health Unspecified results) System specimen by Manual count Basophils 0.06 Normal (applies Basophil # [facility] [#/volume] in {10^3_uL to non-numeric Health Blood by } results) System Automated count ImmatureGranuloc 0.26 Above high Immature [facility] ytes# {10^3_uL normal Granulocytes # Health } System ImmatureGranuloc 3.8 % Above high Immature [facility] ytes% normal Granulocytes % Health System ID Date Data Source [id number] 12/27/2014 06:00:00 AM EDT [facility] Name Value Range Interpretation Code Description Data Lexy rce(s) Supporting Document(s ) T4Free 0.84 ng/ml Normal (applies to T4 Free [facility] non-numeric [facility] System results) ID Date Data Source [id number] 12/27/2014 06:00:00 AM EDT [facility] System Name Value Range Interpretation Description Data Sup porting Code Source(s) Document(s ) Thyrotropin 2.390 Normal (applies Thyroid [facility] [Mass/volume] to non-numeric Stimulating Health Sy stem in Serum or results) Hormone, Serum Plasma ID Date Data Source [id number] 04/13/2011 06:12:15 PM EDT [facility] System Name Value Range Interpretation Description Data Sup porting Code Source(s) Document(s ) Aldolase 9.2 U/L Above high normal Aldolase, [facility] [Enzymatic Serum Health System activity/vol ume] in Serum or Plasma ID Date Data Source [id number] 04/13/2011 06:12:15 PM EDT [facility] Name Value Range Interpretation Description Data Sup porting Code Source(s) Document(s ) Erythrocyte 10 Normal (applies Sedimentation [facility] sedimentation {mmlhr} to non-numeric Rate, Health rate by 2H results) Erythrocyte System Westergren method ID Date Data Source [id number] 04/13/2011 06:12:15 PM EDT [facility] Name Value Range Interpretation Description Data Sup porting Code Source(s) Document(s ) Hemoglobin 14.4 Normal (applies Hemoglobin, [facility] [Mass/volume] in {gm/dL} to non-numeric Whole Blood Health Blood results) System Erythrocytes 4.93 Normal (applies RBC Count [facility] [#/volume] in {10\\S\\6_ to non-numeric Health Blood by uL} results) System Automated count Leukocytes 11.0 Above high normal WBC Count [facility] [#/volume] in {10\\S\\3_ Health Unspecified uL} System specimen by Automated count Hematocrit 42.2 % Normal (applies Hematocrit, [facility] [Volume to non-numeric Whole Blood Health Fraction] of results) System Blood Erythrocyte mean 85.8 fl Normal (applies MCV [facility] corpuscular to non-numeric Health volume [Entitic results) System volume] by Automated count Erythrocyte mean 29.2 pg Normal (applies MCH [facility] corpuscular to non-numeric Health hemoglobin results) System [Entitic mass] by Automated count Erythrocyte 13.5 % Normal (applies RDW [facility] distribution to non-numeric Health width [Entitic results) System volume] by Automated count Erythrocyte mean 34.0 Normal (applies MCHC [facility] corpuscular {gm/dL} to non-numeric Health hemoglobin results) System concentration [Mass/volume] by Automated count Platelets 200 Normal (applies Platelet [facility] [#/volume] in {10\\S\\3_ to non-numeric Count Health Plasma by uL} results) System Automated count Eosinophils 0.1 Normal (applies Eosinophil [facility] [#/volume] in {10\\S\\3} to non-numeric Count Blood Health Blood results) System Platelet mean 9.4 fl Normal (applies MPV [facility] volume [Entitic to non-numeric Health volume] in Blood results) System by Automated count Monocytes 0.4 Normal (applies Monocyte [facility] [#/volume] in {10\\S\\3_ to non-numeric Count Health Blood by Manual uL} results) System count Basophils 0.00 Normal (applies Basophil [facility] [#/volume] in {10\\S\\3_ to non-numeric Count Health Blood by uL} results) System Automated count Neutrophils 9.8 Above high normal Absolute [facility] [#/volume] in {10\\S\\3_ Neutrophil Health Body fluid uL} Count System Lymphocyte 0.7 Below low normal Lymphocyte [facility] percent {10\\S\\3_ Absolute Health differential uL} System count (procedure) Neutrophils/100 89.3 % Above high normal Neutrophil % [facility] leukocytes in Health Blood by System Automated count Monocytes/100 4 % Above high normal Monocyte % [facility] leukocytes in [facility] Blood System Basophils/100 0 % Normal (applies Basophil % [facility] leukocytes in to non-numeric Health Unspecified results) System specimen by Manual count Eosinophils/100 1 % Below low normal Eosinophil % [facility] leukocytes in Health Unspecified System specimen Lymphocytes 6 % Below low normal Lymphocyte % [facility] [#/volume] in Health Blood by System Automated count ID Date Data Source [id number] 04/13/2011 06:12:15 PM EDT [facility] System Name Value Range Interpretation Description Data Sup porting Code Source(s) Document(s ) Sodium 139 mmol/L Normal (applies Sodium, [facility] [Moles/volume] to non-numeric Serum Health in Serum or results) System Plasma Chloride 102 mmol/L Normal (applies Chloride, [facility] [Moles/volume] to non-numeric Serum Health in Serum or results) System Plasma Potassium 4.2 mmol/L Normal (applies Potassium, [facility] [Mass/volume] to non-numeric Serum Health in Serum or results) System Plasma Carbon dioxide, 29.3 mmol/L Normal (applies CO2, Serum [facility] patience total to non-numeric Health [Moles/volume] results) System in Serum or Plasma TotalProtein 7.1 mg/dl Normal (applies Total [facility] to non-numeric Protein Health results) System Glucose 101 mg/dL Normal (applies Glucose, [facility] [Mass/volume] to non-numeric Serum Health in Serum or results) System Plasma Alkaline 54 {IU/L} Normal (applies Alkaline [facility] phosphatase to non-numeric Phosphatase, Health isoenzymes results) Serum System [Enzymatic activity/volume ] in Serum or Plasma by Heat stability Creatinine 0.91 mg/dl Normal (applies Creatinine, [facility] [Mass/volume] to non-numeric Serum Health in Serum or results) System Plasma Urea nitrogen 12 mg/dl Normal (applies Blood Urea [facility] [Mass/volume] to non-numeric Nitrogen, Health in Serum or results) Serum System Plasma Aspartate 23 {IU/L} Normal (applies Aspartate [facility] aminotransferas to non-numeric Transaminase Health e [Enzymatic results) , Serum System activity/volume ] in Serum or Plasma by With P-5'-P Bilirubin.total 0.6 mg/dl Normal (applies Bilirubin, [facility] [Mass/volume] to non-numeric Serum Total Health in Serum or results) System Plasma Albumin 4.2 {gm/dl} Normal (applies Albumin, [facility] [Mass/volume] to non-numeric Serum Health in Serum or results) System Plasma Calcium 9.5 mg/dl Normal (applies Calcium, [facility] [Mass/volume] to non-numeric Total Serum Health in Serum or results) System Plasma Alanine 17 {IU/L} Normal (applies Alanine [facility] aminotransferas to non-numeric Aminotransfe Health e [Enzymatic results) rase, Serum System activity/volume ] in Serum or Plasma I.Phosphorus 4.0 mg/dl Normal (applies I. [facility] to non-numeric Phosphorus Health results) System A/GRatio 1.45 Normal (applies A/G Ratio [facility] to non-numeric Health results) System Anion gap in 7.70 mmol/L Normal (applies Anion Gap [facility] Serum or Plasma to non-numeric Health results) System Urate 6.3 mg/dl Normal (applies Uric Acid, [facility] [Mass/volume] to non-numeric Serum Health in Serum or results) System Plasma Glomerular Greater than Normal (applies GFR [facility] filtration 60 eGFR will to non-numeric Health rate/1.73 sq provide results) System M.predicted clinicians [Volume with a more Rate/Area] in accurate Serum or Plasma indicator of by renal function Creatinine-base then the serum d formula creatinine. (CKD-EPI) The eGFR is automatically calculated from an empiric formula (endorsed by the [employer]) which incorporates age, sex, and race.Clinician s may notice surprisingly low GFR's with serum creatinine values within normal range- particularly in elderly women (with low muscle mass).In the hospital setting, the eGFR should add an element of safety in drug dosing, in assessing the risk of IV contrast administration , and in assessing vascular risk.The NKF staging system is as follows:Normal : eGFR >90 with no kidney markersStage 1: eGFR >90 with kidney markers*Stage 2: eGFR 60-89Stage 3: eGFR 30-59Stage 4: eGFR 15-29Stage 5: eGFR <15 (usually requiring dialysis)*Rolando ers include: Proteinuria, Hematuria, abnormal imaging-studie s, or other blood or urine test abnormalities ID Date Data Source [id number] 04/13/2011 06:12:15 PM EDT [facility] System Name Value Range Interpretation Description Data Sup porting Code Source(s) Document(s ) Creatine 188 Normal (applies Creatine [facility] kinase.MB {IU/L} to non-numeric Kinase, Serum Health Syst em [Mass/volume results) ] in Serum or Plasma ID Date Data Source [id number] 05/26/2011 12:00:00 AM EST [facility] Name Value Range Interpretation Description Data Sup porting Code Source(s) Document(s ) Color Yellow Normal (applies Color [facility] to non-numeric Health results) System Appearance of CLEAR Normal (applies Urine [facility] Urine to non-numeric Appearance Health results) System Specific gravity 1.028 Normal (applies Urine Specific [facility] of Urine to non-numeric [facility] results) System pH.. 5.5 Normal (applies pH.. [facility] {pH_units} to non-numeric Health results) System Protein TR Normal (applies Protein [facility] [Mass/volume] in to non-numeric Health Serum or Plasma results) System Glucose,UA Negative Normal (applies Glucose, UA [facility] to non-numeric Health results) System BilirubinUrine Negative Normal (applies Bilirubin [facility] to non-numeric Urine Health results) System Urobilinogen Less than Normal (applies Urobilinogen [facility] [Mass/volume] in 2.0 to non-numeric UA Health Urine Reference results) System Range: Negative or <=2.0 Ketones Negative Normal (applies Ketones UA [facility] [Mass/volume] in to non-numeric Health Urine results) System Nitrate+Nitrite Negative Normal (applies Nitrite [facility] [Mass/volume] in to non-numeric Health Unspecified results) System specimen Leukocytes 1 {/HPF} Normal (applies White Blood [facility] [#/volume] in to non-numeric Cells Health Unspecified results) System specimen by Automated count Leukocyte Negative Normal (applies Leukocyte [facility] esterase to non-numeric Esterase Health [Units/volume] results) Concentration System in Urine Mucus OCC Normal (applies Mucus [facility] to non-numeric Health results) System RedBloodCells 1 {/HPF} Normal (applies Red Blood [facility] to non-numeric Cells Health results) System UrineBlood Negative Normal (applies Urine Blood [facility] to non-numeric Health results) System ID Date Data Source [id number] 05/26/2011 12:00:00 AM EST [facility] Name Value Range Interpretation Description Data Sup porting Code Source(s) Document(s ) aPTT in Blood 36.6 Above high Activated [facility] by Coagulation {Seconds normal Partial Health assay } Thromboplastin System Time ID Date Data Source [id number] 05/26/2011 12:00:00 AM EST [facility] Name Value Range Interpretation Description Data Sup porting Code Source(s) Document(s ) Prothrombintim 13.40 Normal (applies Prothrombin [facility](PT) to non-numeric time (PT) Health System results) INR in Blood 1.18 Above high normal INR Result [facility] by Coagulation {Ratio} Health System assay Normal = 0.7-1.1Therapeutic = 2.0-3.0Mec hanical Heart = 3.0-4.5 ID Date Data Source [id number] 05/26/2011 12:00:00 AM EST [facility] Name Value Range Interpretation Description Data Sup porting Code Source(s) Document(s ) Leukocytes 7.6 Normal (applies WBC Count [facility] [#/volume] in {10\\S\\3_ to non-numeric Health Unspecified uL} results) System specimen by Automated count Erythrocytes 4.74 Normal (applies RBC Count [facility] [#/volume] in {10\\S\\6_ to non-numeric Health Blood by uL} results) System Automated count Hemoglobin 13.9 Below low normal Hemoglobin, [facility] [Mass/volume] in {gm/dL} Whole Blood Health Blood System Hematocrit 40.4 % Below low normal Hematocrit, [facility] [Volume Whole Blood Health Fraction] of System Blood Erythrocyte mean 85.3 fl Normal (applies MCV [facility] corpuscular to non-numeric Health volume [Entitic results) System volume] by Automated count Erythrocyte mean 34.4 Normal (applies MCHC [facility] corpuscular {gm/dL} to non-numeric Health hemoglobin results) System concentration [Mass/volume] by Automated count Erythrocyte mean 29.3 pg Normal (applies MCH [facility] corpuscular to non-numeric Health hemoglobin results) System [Entitic mass] by Automated count Erythrocyte 13.3 % Normal (applies RDW [facility] distribution to non-numeric Health width [Entitic results) System volume] by Automated count Platelets 198 Normal (applies Platelet [facility] [#/volume] in {10\\S\\3_ to non-numeric Count Health Plasma by uL} results) System Automated count Eosinophils 0.0 Normal (applies Eosinophil [facility] [#/volume] in {10\\S\\3} to non-numeric Count Blood Health Blood results) System Monocytes 0.9 Above high normal Monocyte [facility] [#/volume] in {10\\S\\3_ Count Health Blood by Manual uL} System count Platelet mean 9.2 fl Normal (applies MPV [facility] volume [Entitic to non-numeric Health volume] in Blood results) System by Automated count Neutrophils 5.6 Normal (applies Absolute [facility] [#/volume] in {10\\S\\3_ to non-numeric Neutrophil Health Body fluid uL} results) Count System Basophils 0.00 Normal (applies Basophil [facility] [#/volume] in {10\\S\\3_ to non-numeric Count Health Blood by uL} results) System Automated count Lymphocyte 1.1 Below low normal Lymphocyte [facility] percent {10\\S\\3_ Absolute Health differential uL} System count (procedure) Neutrophils/100 73.5 % Normal (applies Neutrophil % [facility] patience leukocytes in to non-numeric Health Blood by results) System Automated count Eosinophils/100 1 % Below low normal Eosinophil % [facility] leukocytes in Health Unspecified System specimen Monocytes/100 11 % Above high normal Monocyte % [facility] leukocytes in [facility] Blood System Basophils/100 0 % Normal (applies Basophil % [facility] leukocytes in to non-numeric Health Unspecified results) System specimen by Manual count Lymphocytes 14 % Below low normal Lymphocyte % [facility] [#/volume] in Health Blood by System Automated count ID Date Data Source [id number] 05/26/2011 12:00:00 AM EST [facility] System Name Value Range Interpretation Description Data Sup porting Code Source(s) Document(s ) Sodium 138 Normal (applies Sodium, Serum [facility] [Moles/volume mmol/L to non-numeric Health Syst em ] in Serum or results) Plasma Potassium 4.1 Normal (applies Potassium, [facility] [Mass/volume] mmol/L to non-numeric Serum Health Syst em in Serum or results) Plasma Chloride 102 Normal (applies Chloride, [facility] [Moles/volume mmol/L to non-numeric Serum Health Syst em ] in Serum or results) Plasma Carbon 28.5 Normal (applies CO2, Serum [facility] dioxide, mmol/L to non-numeric Health System total results) [Moles/volume ] in Serum or Plasma Glucose 94 mg/dL Normal (applies Glucose, Serum [facility] [Mass/volume] to non-numeric Health Syst em in Serum or results) Plasma Creatinine 0.76 Normal (applies Creatinine, [facility] [Mass/volume] mg/dl to non-numeric Serum Health Syst em in Serum or results) Plasma Urea nitrogen 12 mg/dl Normal (applies Blood Urea [facility] [Mass/volume] to non-numeric Nitrogen, Health Syst em in Serum or results) Serum Plasma Anion gap in 7.50 Normal (applies Anion Gap [facility] Serum or mmol/L to non-numeric Health System Plasma results) Calcium 9.5 Normal (applies Calcium, Total [facility] [Mass/volume] mg/dl to non-numeric Serum Health Syst em in Serum or results) Plasma ID Date Data Source [id number] 05/26/2011 12:00:00 AM [facility] System Name Value Range Interpretation Description Data Sup porting Code Source(s) Document(s ) Creatine 189 Normal (applies Creatine [facility] kinase.MB {IU/L} to non-numeric Kinase, Serum Health Syst em [Mass/volume results) ] in Serum or Plasma ID Date Data Source [id number] 06/03/2011 12:00:00 AM [facility] grey System Name Value Range Interpretation Description Data Sup porting Code Source(s) Document(s ) TissueExam SEE TEXT CLINICAL Normal (applies Tissue Exam [facility] INFORMATION: Anal to non-numeric Health condyloma/dysplasi results) System a.PREOPERATIVE DIAGNOSIS: Same.POSTOPERATIVE DIAGNOSIS: Same.Surgical Pathology ReportFINAL DIAGNOSIS:A: Anal canal, left posterolateral plaque of dentate line, biopsy:Squamous and transitional zone mucosa showing acute and chronic inflammation and parakeratosis.The underlying skeletal muscle is unremarkable.B: Anal canal, right posterolateral, skin, biopsy:Anal intraepithelial lesion, high grade (AIN-3).C: Anal canal, left posterior lateral, anal dermal skin, biopsy:Anal intraepithelial lesion, 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 Case was shown in intradepartmental consultation. Slides of prior anal canal biopsy, [id number] and [id number] were reviewed and concur with the diagnosis.Case was discussed with Dr. Dunaway on 06/04/11.RPS/stGRO SS DESCRIPTION:A: In formalin, labeled "left posterolateral plaque of dentate line", the specimen consists of a 0.6 X 0.1 X 0.1cm becerra, irregular skin fragment. The specimen is submitted in toto in one cassette.B: In formalin, labeled "right posterior lateral skin", the specimen consists of a 0.2 X 0.2cm becerra brown skin shave. The specimen is submitted in toto in one cassette.C: In formalin, labeled "left posterior lateral anal dermal skin", the specimen consists of 0.2 X 0.1cm becerra brown skin shave. The specimen is submitted in toto in one cassette.D: In formalin, labeled "left lateral anal skin", the specimen consists of a 0.2 X 0.2cm becerra skin shave. The specimen is submitted in toto in one cassette.E: In formalin, labeled "posterior anal skin", the specimen consists of a 0.2 X 0.1cm becerra skin shave. The specimen is submitted in toto in one cassette.DS/Carlos CLARKE [email or web address]@ @[email or web address]@ ID Date Data Source [id number] 07/02/2011 04:02:04 PM EST [facility] Name Value Range Interpretation Description Data Sup porting Code Source(s) Document(s ) SpecialVirologyTe Nonreactive Normal (applies Special [facility] sting Reference to non-numeric Virology Health Range: results) Testing System nonreactive ID Date Data Source [id number] 07/10/2011 12:00:00 AM EST [facility] System Name Value Range Interpretation Description Data Sup porting Code Source(s) Document(s ) Bands 11 % Above high normal Bands [facility] System Polys 49 % Below low normal Polys [facility] System Platelets Adequate Normal (applies Platelet Count [facility] [#/volume] in to non-numeric Estimate Health Blood by results) System Estimate Variant 1 % Above upper panic Atypical [facility] lymphocytes limits Lymphocyte Health [Presence] in Count System Blood by Automated count Result Reporting|Telephone|not a panic r esult| 07/10/2011 at 2:33 AMCalled to:Tech Name:Readback by: 07/10/2011 / 2:33 AM NORM yes. Normal (applies to NORM [facility] non-numeric results) System Lymphocytes [#/volume] 18 % Normal (applies to Lymphocy te % [facility] in Blood by Automated non-numeric results) System count Monocytes/100 21 % Above high normal Monocyte % [facility] leukocytes in Blood System ID Date Data Source [id number] 07/10/2011 12:00:00 AM EST [facility] System Name Value Range Interpretation Description Data Sup porting Code Source(s) Document(s ) Leukocytes 3.8 Below low normal WBC Count [facility] [#/volume] in {10\\S\\3_ Health Unspecified uL} System specimen by Automated count Erythrocytes 4.94 Normal (applies RBC Count [facility] [#/volume] in {10\\S\\6_ to non-numeric Health Blood by uL} results) System Automated count Hemoglobin 14.2 Normal (applies Hemoglobin, [facility] [Mass/volume] in {gm/dL} to non-numeric Whole Blood Health Blood results) System Hematocrit 42.4 % Normal (applies Hematocrit, [facility] [Volume to non-numeric Whole Blood Health Fraction] of results) System Blood Erythrocyte mean 85.7 fl Normal (applies MCV [facility] corpuscular to non-numeric Health volume [Entitic results) System volume] by Automated count Erythrocyte mean 33.5 Normal (applies MCHC [facility] corpuscular {gm/dL} to non-numeric Health hemoglobin results) System concentration [Mass/volume] by Automated count Erythrocyte mean 28.8 pg Normal (applies MCH [facility] corpuscular to non-numeric Health hemoglobin results) System [Entitic mass] by Automated count Erythrocyte 13.3 % Normal (applies RDW [facility] distribution to non-numeric Health width [Entitic results) System volume] by Automated count Platelets 140 Normal (applies Platelet [facility] [#/volume] in {10\\S\\3_ to non-numeric Count Health Plasma by uL} results) System Automated count Platelet mean 8.6 fl Normal (applies MPV [facility] volume [Entitic to non-numeric Health volume] in Blood results) System by Automated count ID Date Data Source [id number] 07/10/2011 12:00:00 AM EST [facility] que System Name Value Range Interpretation Description Data Sup porting Code Source(s) Document(s ) Sodium 139 mmol/L Normal (applies Sodium, [facility] [Moles/volume] to non-numeric Serum Health in Serum or results) System Plasma Potassium 3.8 mmol/L Normal (applies Potassium, [facility] [Mass/volume] to non-numeric Serum Health in Serum or results) System Plasma Carbon dioxide, 29.3 mmol/L Normal (applies CO2, Serum [facility] patience total to non-numeric Health [Moles/volume] results) System in Serum or Plasma Chloride 102 mmol/L Normal (applies Chloride, [facility] [Moles/volume] to non-numeric Serum Health in Serum or results) System Plasma TotalProtein 7.0 mg/dl Normal (applies Total [facility] to non-numeric Protein Health results) System Glucose 76 mg/dL Normal (applies Glucose, [facility] [Mass/volume] to non-numeric Serum Health in Serum or results) System Plasma Urea nitrogen 7 mg/dl Below low Blood Urea [facility] [Mass/volume] normal Nitrogen, Health in Serum or Serum System Plasma Creatinine 0.87 mg/dl Normal (applies Creatinine, [facility] [Mass/volume] to non-numeric Serum Health in Serum or results) System Plasma Bilirubin.total 0.4 mg/dl Normal (applies Bilirubin, [facility] [Mass/volume] to non-numeric Serum Total Health in Serum or results) System Plasma Alkaline 63 {IU/L} Normal (applies Alkaline [facility] phosphatase to non-numeric Phosphatase, Health isoenzymes results) Serum System [Enzymatic activity/volume ] in Serum or Plasma by Heat stability Aspartate 59 {IU/L} Above high Aspartate [facility] aminotransferas normal Transaminase Health e [Enzymatic , Serum System activity/volume ] in Serum or Plasma by With P-5'-P Albumin 4.2 {gm/dl} Normal (applies Albumin, [facility] [Mass/volume] to non-numeric Serum Health in Serum or results) System Plasma I.Phosphorus 4.5 mg/dl Normal (applies I. [facility] to non-numeric Phosphorus Health results) System Alanine 34 {IU/L} Normal (applies Alanine [facility] aminotransferas to non-numeric Aminotransfe Health e [Enzymatic results) rase, Serum System activity/volume ] in Serum or Plasma Calcium 8.9 mg/dl Normal (applies Calcium, [facility] [Mass/volume] to non-numeric Total Serum Health in Serum or results) System Plasma A/GRatio 1.50 Normal (applies A/G Ratio [facility] to non-numeric Health results) System Urate 5.6 mg/dl Normal (applies Uric Acid, [facility] [Mass/volume] to non-numeric Serum Health in Serum or results) System Plasma Glomerular Greater than Normal (applies GFR [facility] filtration 60 eGFR will to non-numeric Health rate/1.73 sq provide results) System M.predicted clinicians [Volume with a more Rate/Area] in accurate Serum or Plasma indicator of by renal function Creatinine-base then the serum d formula creatinine. (CKD-EPI) The eGFR is automatically calculated from an empiric formula (endorsed by the [employer]) which incorporates age, sex, and race.Clinician s may notice surprisingly low GFR's with serum creatinine values within normal range- particularly in elderly women (with low muscle mass).In the hospital setting, the eGFR should add an element of safety in drug dosing, in assessing the risk of IV contrast administration , and in assessing vascular risk.The NKF staging system is as follows:Normal : eGFR >90 with no kidney markersStage 1: eGFR >90 with kidney markers*Stage 2: eGFR 60-89Stage 3: eGFR 30-59Stage 4: eGFR 15-29Stage 5: eGFR <15 (usually requiring dialysis)*Rolando ers include: Proteinuria, Hematuria, abnormal imaging-studie s, or other blood or urine test abnormalities Anion gap in 7.70 mmol/L Normal (applies Anion Gap [facility] Serum or Plasma to non-numeric Health results) System ID Date Data Source [id number] 07/10/2011 12:53:00 AM EST [facility] Name Value Range Interpretation Description Data Sup porting Code Source(s) Document(s ) Color Yellow Normal (applies Color [facility] to non-numeric Health results) System Specific gravity 1.020 Normal (applies Urine Specific [facility] of Urine to non-numeric [facility] results) System Appearance of CLEAR Normal (applies Urine [facility] Urine to non-numeric Appearance Health results) System pH.. 6.0 Normal (applies pH.. [facility] {pH_units} to non-numeric Health results) System Glucose,UA Negative Normal (applies Glucose, UA [facility] to non-numeric Health results) System Protein TR Normal (applies Protein [facility] [Mass/volume] in to non-numeric Health Serum or Plasma results) System BilirubinUrine Negative Normal (applies Bilirubin [facility] to non-numeric Urine Health results) System Urobilinogen Less than Normal (applies Urobilinogen [facility] [Mass/volume] in 2.0 to non-numeric UA Health Urine Reference results) System Range: Negative or <=2.0 Ketones Negative Normal (applies Ketones UA [facility] [Mass/volume] in to non-numeric Health Urine results) System Nitrate+Nitrite Negative Normal (applies Nitrite [facility] [Mass/volume] in to non-numeric Health Unspecified results) System specimen Leukocyte Negative Normal (applies Leukocyte [facility] esterase to non-numeric Esterase Health [Units/volume] results) Concentration System in Urine RedBloodCells Less than 1 Normal (applies Red Blood [facility] /HPF to non-numeric Cells Health results) System Leukocytes 2 {/HPF} Normal (applies White Blood [facility] [#/volume] in to non-numeric Cells Health Unspecified results) System specimen by Automated count Mucus RARE Normal (applies Mucus [facility] to non-numeric Health results) System Epithelial cells Less than 1 Normal (applies Epithelial [facility] [Presence] in /HPF to non-numeric Cells Health Unspecified results) System specimen by Wet preparation UrineBlood Negative Normal (applies Urine Blood [facility] to non-numeric Health results) System ID Date Data Source [id number] 07/10/2011 02:30:00 AM EST Jeanie [facility] System Name Value Range Interpretation Description Data Sup porting Code Source(s) Document(s ) Influenza Negative Normal (applies Influenza B [facility] virus B Ag to non-numeric Virus Antibody Health [Presence] in results) Test, Serum System Unspecified specimen Note: Because the sensitivity of rapid f kaylin test varies with the type of antigen and type of specimen, it could produce false negative results. Viral (cell) culture testing should be considered to confirm the results and to assist in detecting other viruses that can produce similar clinica l symptoms. Influenza virus A Negative Normal (applies to Influenza A [facility] Ag [Presence] in non-numeric Antigen, Serum System Unspecified results) specimen ID Date Data Source [id number] 07/10/2011 08:57:49 AM HALEIGH [facility] System Name Value Range Interpretation Description Data Sup porting Code Source(s) Document(s ) Deprecated NO GROWTH Aerobic [facility] Bacteria Culture, Urine Health System identified in Urine by Aerobe culture ID Date Data Source [id number] 07/10/2011 09:00:15 AM [facility] System Name Value Range Interpretation Description Data Sup porting Code Source(s) Document(s ) Bacteria NO GROWTH Cult Bacteria [facility] identified in Blood [facility] System Blood by Aerobe culture ID Date Data Source [id number] 08/02/2011 02:23:32 PM EST Jeanie [facility] System Name Value Range Interpretation Description Data Sup porting Code Source(s) Document(s ) Color Yellow Normal (applies Color [facility] to non-numeric Health results) System Specific gravity 1.026 Normal (applies Urine Specific [facility] Urine to non-numeric [facility] results) System Appearance of CLEAR Normal (applies Urine [facility] Urine to non-numeric Appearance Health results) System Glucose,UA Negative Normal (applies Glucose, UA [facility] to non-numeric Health results) System pH.. 6.0 Normal (applies pH.. [facility] {pH_units} to non-numeric Health results) System Protein TR Normal (applies Protein [facility] [Mass/volume] in to non-numeric Health Serum or Plasma results) System BilirubinUrine Negative Normal (applies Bilirubin [facility] to non-numeric Urine Health results) System Urobilinogen Less than Normal (applies Urobilinogen [facility] [Mass/volume] in 2.0 to non-numeric UA [facility] Urine Reference results) System Range: Negative or <=2.0 Nitrate+Nitrite Negative Normal (applies Nitrite [facility] [Mass/volume] in to non-numeric Health Unspecified results) System specimen Ketones Negative Normal (applies Ketones UA [facility] [Mass/volume] in to non-numeric Health Urine results) System Leukocyte Negative Normal (applies Leukocyte [facility] esterase to non-numeric Esterase Health [Units/volume] results) Concentration System in Urine RedBloodCells Less than 1 Normal (applies Red Blood [facility] /HPF to non-numeric Cells Health results) System Leukocytes Less than 1 Normal (applies White Blood [facility] [#/volume] in /HPF to non-numeric Cells Health Unspecified results) System specimen by Automated count Epithelial cells Less than 1 Normal (applies Epithelial [facility] [Presence] in /HPF to non-numeric Cells Health Unspecified results) System specimen by Wet preparation UrineBlood Negative Normal (applies Urine Blood [facility] to non-numeric Health results) System Mucus OCC Normal (applies Mucus [facility] to non-numeric Health results) System ID Date Data Source [id number] 08/02/2011 02:23:32 PM EST [facility] System Name Value Range Interpretation Description Data Sup porting Code Source(s) Document(s ) Polys 52 % Below low normal Polys [facility] Platelets Adequate Normal (applies Platelet Count [facility] [#/volume] in to non-numeric Estimate Health Blood by results) System Estimate NORM yes. Normal (applies NORM [facility] to non-numeric Health results) System Lymphocytes 27 % Normal (applies Lymphocyte % [facility] [#/volume] in to non-numeric Health Blood by results) System Automated count Monocytes/100 19 % Above high normal Monocyte % [facility] leukocytes in Health Blood System Eosinophils/10 2 % Normal (applies Eosinophil % [facility] 0 leukocytes to non-numeric Health in Unspecified results) System specimen ID Date Data Source [id number] 08/02/2011 02:23:32 PM EST [facility] System Name Value Range Interpretation Description Data Sup porting Code Source(s) Document(s ) Leukocytes 5.4 Normal (applies WBC Count [facility] [#/volume] in {10\\S\\3_ to non-numeric Health Unspecified uL} results) System specimen by Automated count Erythrocytes 4.63 Below low normal RBC Count [facility] [#/volume] in {10\\S\\6_ Health Blood by uL} System Automated count Hemoglobin 13.3 Below low normal Hemoglobin, [facility] [Mass/volume] in {gm/dL} Whole Blood Health Blood System Erythrocyte mean 84.7 fl Normal (applies MCV [facility] corpuscular to non-numeric Health volume [Entitic results) System volume] by Automated count Hematocrit 39.2 % Below low normal Hematocrit, [facility] [Volume Whole Blood Health Fraction] of System Blood Erythrocyte mean 28.6 pg Normal (applies MCH [facility] corpuscular to non-numeric Health hemoglobin results) System [Entitic mass] by Automated count Erythrocyte mean 33.8 Normal (applies MCHC [facility] corpuscular {gm/dL} to non-numeric Health hemoglobin results) System concentration [Mass/volume] by Automated count Erythrocyte 13.4 % Normal (applies RDW [facility] distribution to non-numeric Health width [Entitic results) System volume] by Automated count Platelets 171 Normal (applies Platelet [facility] [#/volume] in {10\\S\\3_ to non-numeric Count Health Plasma by uL} results) System Automated count Platelet mean 8.9 fl Normal (applies MPV [facility] volume [Entitic to non-numeric Health volume] in Blood results) System by Automated count ID Date Data Source [id number] 08/02/2011 02:23:32 PM EST [facility] System Name Value Range Interpretation Description Data Sup porting Code Source(s) Document(s ) Sodium 137 mmol/L Normal (applies Sodium, [facility] [Moles/volume] to non-numeric Serum Health in Serum or results) System Plasma Potassium 4.2 mmol/L Normal (applies Potassium, [facility] [Mass/volume] to non-numeric Serum Health in Serum or results) System Plasma Chloride 103 mmol/L Normal (applies Chloride, [facility] [Moles/volume] to non-numeric Serum Health in Serum or results) System Plasma TotalProtein 7.0 mg/dl Normal (applies Total [facility] to non-numeric Protein Health results) System Carbon dioxide, 29.4 mmol/L Normal (applies CO2, Serum [facility] patience total to non-numeric Health [Moles/volume] results) System in Serum or Plasma Glucose 90 mg/dL Normal (applies Glucose, [facility] [Mass/volume] to non-numeric Serum Health in Serum or results) System Plasma Creatinine 0.80 mg/dl Normal (applies Creatinine, [facility] [Mass/volume] to non-numeric Serum Health in Serum or results) System Plasma Urea nitrogen 9 mg/dl Normal (applies Blood Urea [facility] [Mass/volume] to non-numeric Nitrogen, Health in Serum or results) Serum System Plasma Alkaline 63 {IU/L} Normal (applies Alkaline [facility] phosphatase to non-numeric Phosphatase, Health isoenzymes results) Serum System [Enzymatic activity/volume ] in Serum or Plasma by Heat stability Aspartate 69 {IU/L} Above high Aspartate [facility] aminotransferas normal Transaminase Health e [Enzymatic , Serum System activity/volume ] in Serum or Plasma by With P-5'-P Bilirubin.total 0.6 mg/dl Normal (applies Bilirubin, [facility] [Mass/volume] to non-numeric Serum Total Health in Serum or results) System Plasma Albumin 4.0 {gm/dl} Normal (applies Albumin, [facility] [Mass/volume] to non-numeric Serum Health in Serum or results) System Plasma I.Phosphorus 4.5 mg/dl Normal (applies I. [facility] to non-numeric Phosphorus Health results) System Alanine 61 {IU/L} Above high Alanine [facility] aminotransferas normal Aminotransfe Health e [Enzymatic rase, Serum System activity/volume ] in Serum or Plasma Calcium 9.3 mg/dl Normal (applies Calcium, [facility] [Mass/volume] to non-numeric Total Serum Health in Serum or results) System Plasma A/GRatio 1.33 Normal (applies A/G Ratio [facility] to non-numeric Health results) System Urate 6.7 mg/dl Normal (applies Uric Acid, [facility] [Mass/volume] to non-numeric Serum Health in Serum or results) System Plasma Anion gap in 4.60 mmol/L Normal (applies Anion Gap [facility] Serum or Plasma to non-numeric Health results) System Glomerular Greater than Normal (applies GFR [facility] filtration 60 eGFR will to non-numeric Health rate/1.73 sq provide results) System M.predicted clinicians [Volume with a more Rate/Area] in accurate Serum or Plasma indicator of by renal function Creatinine-base then the serum d formula creatinine. (CKD-EPI) The eGFR is automatically calculated from an empiric formula (endorsed by the [employer] Kid[employer]) which incorporates age, sex, and race.Clinician s may notice surprisingly low GFR's with serum creatinine values within normal range- particularly in elderly women (with low muscle mass).In the hospital setting, the eGFR should add an element of safety in drug dosing, in assessing the risk of IV contrast administration , and in assessing vascular risk.The NKF staging system is as follows:Normal : eGFR >90 with no kidney markersStage 1: eGFR >90 with kidney markers*Stage 2: eGFR 60-89Stage 3: eGFR 30-59Stage 4: eGFR 15-29Stage 5: eGFR <15 (usually requiring dialysis)*Rolando ers include: Proteinuria, Hematuria, abnormal imaging-studie s, or other blood or urine test abnormalities ID Date Data Source [id number] 08/02/2011 02:23:32 PM [facility]ALE[facility] System Name Value Range Interpretation Description Data Sup porting Code Source(s) Document(s ) Creatine 1830 Above high normal Creatine [facility] kinase.MB {IU/L} Kinase, Serum Health System [Mass/volume ] in Serum or Plasma ID Date Data Source [id number] 08/16/2011 11:46:00 AM EST Jeanie [facility] System Name Value Range Interpretation Description Data Sup porting Code Source(s) Document(s ) Leukocytes 6.9 Normal (applies WBC Count [facility] [#/volume] in {10\\S\\3_ to non-numeric Health Unspecified uL} results) System specimen by Automated count Erythrocytes 5.24 Normal (applies RBC Count [facility] [#/volume] in {10\\S\\6_ to non-numeric Health Blood by uL} results) System Automated count Hemoglobin 14.8 Normal (applies Hemoglobin, [facility] [Mass/volume] in {gm/dL} to non-numeric Whole Blood Health Blood results) System Erythrocyte mean 85.5 fl Normal (applies MCV [facility] corpuscular to non-numeric Health volume [Entitic results) System volume] by Automated count Hematocrit 44.8 % Normal (applies Hematocrit, [facility] [Volume to non-numeric Whole Blood Health Fraction] of results) System Blood Erythrocyte mean 28.3 pg Normal (applies MCH [facility] corpuscular to non-numeric Health hemoglobin results) System [Entitic mass] by Automated count Erythrocyte 13.6 % Normal (applies RDW [facility] distribution to non-numeric Health width [Entitic results) System volume] by Automated count Erythrocyte mean 33.1 Normal (applies MCHC [facility] corpuscular {gm/dL} to non-numeric Health hemoglobin results) System concentration [Mass/volume] by Automated count Platelet mean 8.5 fl Normal (applies MPV [facility] volume [Entitic to non-numeric Health volume] in Blood results) System by Automated count Platelets 196 Normal (applies Platelet [facility] [#/volume] in {10\\S\\3_ to non-numeric Count Health Plasma by uL} results) System Automated count Monocytes 0.9 Above high normal Monocyte [facility] [#/volume] in {10\\S\\3_ Count Health Blood by Manual uL} System count Neutrophils 4.6 Normal (applies Absolute [facility] [#/volume] in {10\\S\\3_ to non-numeric Neutrophil Health Body fluid uL} results) Count System Eosinophils 0.1 Normal (applies Eosinophil [facility] [#/volume] in {10\\S\\3} to non-numeric Count Blood Health Blood results) System Lymphocyte 1.3 Normal (applies Lymphocyte [facility] percent {10\\S\\3_ to non-numeric Absolute Health differential uL} results) System count (procedure) Basophils 0.00 Normal (applies Basophil [facility] [#/volume] in {10\\S\\3_ to non-numeric Count Health Blood by uL} results) System Automated count Neutrophils/100 66.7 % Normal (applies Neutrophil % [facility] patience leukocytes in to non-numeric Health Blood by results) System Automated count Eosinophils/100 1 % Normal (applies Eosinophil % [facility] patience leukocytes in to non-numeric Health Unspecified results) System specimen Monocytes/100 13 % Above high normal Monocyte % [facility] leukocytes in Health Blood System Basophils/100 1 % Normal (applies Basophil % [facility] leukocytes in to non-numeric Health Unspecified results) System specimen by Manual count Lymphocytes 19 % Normal (applies Lymphocyte % [facility] [#/volume] in to non-numeric Health Blood by results) System Automated count ID Date Data Source [id number] 08/16/2011 11:46:00 AM EST [facility] Name Value Range Interpretation Description Data Sup porting Code Source(s) Document(s ) Sodium 138 mmol/L Normal (applies Sodium, [facility] [Moles/volume] to non-numeric Serum Health in Serum or results) System Plasma Potassium 4.1 mmol/L Normal (applies Potassium, [facility] [Mass/volume] to non-numeric Serum Health in Serum or results) System Plasma Chloride 105 mmol/L Normal (applies Chloride, [facility] [Moles/volume] to non-numeric Serum Health in Serum or results) System Plasma Carbon dioxide, 25.4 mmol/L Normal (applies CO2, Serum [facility] patience total to non-numeric Health [Moles/volume] results) System in Serum or Plasma TotalProtein 7.5 mg/dl Normal (applies Total [facility] to non-numeric Protein Health results) System Glucose 85 mg/dL Normal (applies Glucose, [facility] [Mass/volume] to non-numeric Serum Health in Serum or results) System Plasma Creatinine 0.78 mg/dl Normal (applies Creatinine, [facility] [Mass/volume] to non-numeric Serum Health in Serum or results) System Plasma Urea nitrogen 11 mg/dl Normal (applies Blood Urea [facility] [Mass/volume] to non-numeric Nitrogen, Health in Serum or results) Serum System Plasma Alkaline 71 {IU/L} Normal (applies Alkaline [facility] phosphatase to non-numeric Phosphatase, Health isoenzymes results) Serum System [Enzymatic activity/volume ] in Serum or Plasma by Heat stability Aspartate 40 {IU/L} Normal (applies Aspartate [facility] aminotransferas to non-numeric Transaminase Health e [Enzymatic results) , Serum System activity/volume ] in Serum or Plasma by With P-5'-P Bilirubin.total 0.8 mg/dl Normal (applies Bilirubin, [facility] [Mass/volume] to non-numeric Serum Total Health in Serum or results) System Plasma I.Phosphorus 4.9 mg/dl Normal (applies I. [facility] to non-numeric Phosphorus Health results) System Albumin 4.1 {gm/dl} Normal (applies Albumin, [facility] [Mass/volume] to non-numeric Serum Health in Serum or results) System Plasma Alanine 43 {IU/L} Above high Alanine [facility] aminotransferas normal Aminotransfe Health e [Enzymatic rase, Serum System activity/volume ] in Serum or Plasma A/GRatio 1.21 Normal (applies A/G Ratio [facility] to non-numeric Health results) System Calcium 9.5 mg/dl Normal (applies Calcium, [facility] [Mass/volume] to non-numeric Total Serum Health in Serum or results) System Plasma Urate 6.4 mg/dl Normal (applies Uric Acid, [facility] [Mass/volume] to non-numeric Serum Health in Serum or results) System Plasma Glomerular Greater than Normal (applies GFR [facility] filtration 60 eGFR will to non-numeric Health rate/1.73 sq provide results) System M.predicted clinicians [Volume with a more Rate/Area] in accurate Serum or Plasma indicator of by renal function Creatinine-base then the serum d formula creatinine. (CKD-EPI) The eGFR is automatically calculated from an empiric formula (endorsed by the [employer] Kid[employer]) which incorporates age, sex, and race.Clinician s may notice surprisingly low GFR's with serum creatinine values within normal range- particularly in elderly women (with low muscle mass).In the hospital setting, the eGFR should add an element of safety in drug dosing, in assessing the risk of IV contrast administration , and in assessing vascular risk.The NKF staging system is as follows:Normal : eGFR >90 with no kidney markersStage 1: eGFR >90 with kidney markers*Stage 2: eGFR 60-89Stage 3: eGFR 30-59Stage 4: eGFR 15-29Stage 5: eGFR <15 (usually requiring dialysis)*Rolando ers include: Proteinuria, Hematuria, abnormal imaging-studie s, or other blood or urine test abnormalities Anion gap in 7.60 mmol/L Normal (applies Anion Gap [facility] Serum or Plasma to non-numeric Health results) System ID Date Data Source [id number] 08/16/2011 11:46:00 AM EST [facility] System Name Value Range Interpretation Description Data Source(s ) Supporting Code Document(s ) Lipase 28 U/L Normal (applies to Lipase, Serum [facility] [Enzymatic non-numeric Health System activity/vo results) lume] in Serum or Plasma ID Date Data Source [id number] 08/16/2011 11:46:00 AM EST [facility] System Name Value Range Interpretation Description Data Sup porting Code Source(s) Document(s ) Creatine 566 Above high normal Creatine [facility] kinase.MB {IU/L} Kinase, Serum Health System [Mass/volume ] in Serum or Plasma ID Date Data Source [id number] 08/16/2011 11:46:00 AM EST [facility] System Name Value Range Interpretation Description Data Sup porting Code Source(s) Document(s ) Amylase 87 {IU/L} Normal (applies to Amylase, Serum [facility] [Enzymatic non-numeric Health System activity/vo results) lume] in Serum or Plasma ID Date Data Source [id number] 08/18/2011 01:15:50 PM EST [facility] System Name Value Range Interpretation Description Data Sup porting Code Source(s) Document(s ) aPTT in Blood 40.5 Above high Activated [facility] by Coagulation {Seconds normal Partial Health assay } Thromboplastin System Time ID Date Data Source [id number] 08/18/2011 01:15:50 PM EST [facility] System Name Value Range Interpretation Description Data Sup porting Code Source(s) Document(s ) Prothrombintim 13.70 Normal (applies Prothrombin [facility](PT) to non-numeric time (PT) Health System results) Prothrombin Ab 1.21 Above high normal INR Result [facility] [Units/volume] {Ratio} Health System in Serum or Plasma Normal = 0.7-1.1Therapeutic = 2.0-3.0Mec hanical Heart = 3.0-4.5 ID Date Data Source [id number] 08/18/2011 01:15:50 PM EST [facility] System Name Value Range Interpretation Description Data Sup porting Code Source(s) Document(s ) Erythrocyte 7 Normal (applies Sedimentation [facility] sedimentation {mmlhr} to non-numeric Rate, Health rate by 2H results) Erythrocyte System Christel method ID Date Data Source [id number] 08/18/2011 01:15:50 PM EST [facility] System Name Value Range Interpretation Description Data Sup porting Code Source(s) Document(s ) Leukocytes 8.5 Normal (applies WBC Count [facility] [#/volume] in {10\\S\\3_ to non-numeric Health Unspecified uL} results) System specimen by Automated count Erythrocytes 5.09 Normal (applies RBC Count [facility] [#/volume] in {10\\S\\6_ to non-numeric Health Blood by uL} results) System Automated count Hemoglobin 14.6 Normal (applies Hemoglobin, [facility] [Mass/volume] in {gm/dL} to non-numeric Whole Blood Health Blood results) System Hematocrit 43.4 % Normal (applies Hematocrit, [facility] [Volume to non-numeric Whole Blood Health Fraction] of results) System Blood Erythrocyte mean 85.2 fl Normal (applies MCV [facility] corpuscular to non-numeric Health volume [Entitic results) System volume] by Automated count Erythrocyte mean 28.7 pg Normal (applies MCH [facility] corpuscular to non-numeric Health hemoglobin results) System [Entitic mass] by Automated count Erythrocyte mean 33.7 Normal (applies MCHC [facility] corpuscular {gm/dL} to non-numeric Health hemoglobin results) System concentration [Mass/volume] by Automated count Erythrocyte 13.7 % Normal (applies RDW [facility] distribution to non-numeric Health width [Entitic results) System volume] by Automated count Platelets 201 Normal (applies Platelet [facility] [#/volume] in {10\\S\\3_ to non-numeric Count Health Plasma by uL} results) System Automated count Platelet mean 9.0 fl Normal (applies MPV [facility] volume [Entitic to non-numeric Health volume] in Blood results) System by Automated count Monocytes 1.1 Above high normal Monocyte [facility] [#/volume] in {10\\S\\3_ Count Health Blood by Manual uL} System count Eosinophils 0.1 Normal (applies Eosinophil [facility] [#/volume] in {10\\S\\3} to non-numeric Count Blood Health Blood results) System Neutrophils 5.5 Normal (applies Absolute [facility] [#/volume] in {10\\S\\3_ to non-numeric Neutrophil Health Body fluid uL} results) Count System Basophils 0.00 Normal (applies Basophil [facility] [#/volume] in {10\\S\\3_ to non-numeric Count Health Blood by uL} results) System Automated count Neutrophils/100 64.5 % Normal (applies Neutrophil % [facility] patience leukocytes in to non-numeric Health Blood by results) System Automated count Lymphocyte 1.8 Normal (applies Lymphocyte [facility] percent {10\\S\\3_ to non-numeric Absolute Health differential uL} results) System count (procedure) Monocytes/100 13 % Above high normal Monocyte % [facility] leukocytes in Health Blood System Basophils/100 0 % Normal (applies Basophil % [facility] leukocytes in to non-numeric Health Unspecified results) System specimen by Manual count Eosinophils/100 1 % Normal (applies Eosinophil % [place] patience leukocytes in to non-numeric Health Unspecified results) System specimen Lymphocytes 21 % Normal (applies Lymphocyte % [facility] [#/volume] in to non-numeric Health Blood by results) System Automated count ID Date Data Source [id number] 08/18/2011 01:15:50 PM EST [facility] Name Value Range Interpretation Description Data Sup porting Code Source(s) Document(s ) Sodium 136 mmol/L Normal (applies Sodium, [facility] [Moles/volume] to non-numeric Serum Health in Serum or results) System Plasma Potassium 4.1 mmol/L Normal (applies Potassium, [facility] [Mass/volume] to non-numeric Serum Health in Serum or results) System Plasma Carbon dioxide, 25.9 mmol/L Normal (applies CO2, Serum [facility] total to non-numeric Health [Moles/volume] results) System in Serum or Plasma Chloride 104 mmol/L Normal (applies Chloride, [facility] [Moles/volume] to non-numeric Serum Health in Serum or results) System Plasma TotalProtein 7.9 mg/dl Normal (applies Total [facility] to non-numeric Protein Health results) System Urea nitrogen 11 mg/dl Normal (applies Blood Urea [facility] [Mass/volume] to non-numeric Nitrogen, Health in Serum or results) Serum System Plasma Glucose 86 mg/dL Normal (applies Glucose, [facility] [Mass/volume] to non-numeric Serum Health in Serum or results) System Plasma Creatinine 0.91 mg/dl Normal (applies Creatinine, [facility] [Mass/volume] to non-numeric Serum Health in Serum or results) System Plasma Alkaline 67 {IU/L} Normal (applies Alkaline [facility] phosphatase to non-numeric Phosphatase, Health isoenzymes results) Serum System [Enzymatic activity/volume ] in Serum or Plasma by Heat stability Aspartate 48 {IU/L} Above high Aspartate [facility] aminotransferas normal Transaminase Health e [Enzymatic , Serum System activity/volume ] in Serum or Plasma by With P-5'-P Bilirubin.total 0.7 mg/dl Normal (applies Bilirubin, [facility] [Mass/volume] to non-numeric Serum Total Health in Serum or results) System Plasma Albumin 4.3 {gm/dl} Normal (applies Albumin, [facility] [Mass/volume] to non-numeric Serum Health in Serum or results) System Plasma I.Phosphorus 4.3 mg/dl Normal (applies I. [facility] to non-numeric Phosphorus Health results) System Alanine 43 {IU/L} Above high Alanine [facility] aminotransferas normal Aminotransfe Health e [Enzymatic rase, Serum System activity/volume ] in Serum or Plasma Calcium 9.3 mg/dl Normal (applies Calcium, [facility] [Mass/volume] to non-numeric Total Serum Health in Serum or results) System Plasma A/GRatio 1.19 Normal (applies A/G Ratio [facility] to non-numeric Health results) System Urate 8.2 mg/dl Above high Uric Acid, [facility] [Mass/volume] normal Serum Health in Serum or System Plasma Anion gap in 6.10 mmol/L Normal (applies Anion Gap [facility] Serum or Plasma to non-numeric Health results) System Glomerular Greater than Normal (applies GFR [facility] filtration 60 eGFR will to non-numeric Health rate/1.73 sq provide results) System M.predicted clinicians [Volume with a more Rate/Area] in accurate Serum or Plasma indicator of by renal function Creatinine-base then the serum d formula creatinine. (CKD-EPI) The eGFR is automatically calculated from an empiric formula (endorsed by the [employer]) which incorporates age, sex, and race.Clinician s may notice surprisingly low GFR's with serum creatinine values within normal range- particularly in elderly women (with low muscle mass).In the hospital setting, the eGFR should add an element of safety in drug dosing, in assessing the risk of IV contrast administration , and in assessing vascular risk.The NKF staging system is as follows:Normal : eGFR >90 with no kidney markersStage 1: eGFR >90 with kidney markers*Stage 2: eGFR 60-89Stage 3: eGFR 30-59Stage 4: eGFR 15-29Stage 5: eGFR <15 (usually requiring dialysis)*Rolando ers include: Proteinuria, Hematuria, abnormal imaging-studie s, or other blood or urine test abnormalities ID Date Data Source [id number] 08/18/2011 01:15:50 PM EST [facility] Name Value Range Interpretation Description Data Sup porting Code Source(s) Document(s ) Creatine 665 Above high normal Creatine [facility] kinase.MB {IU/L} Kinase, Serum Health System [Mass/volume ] in Serum or Plasma ID Date Data Source [id number] 08/25/2011 12:00:00 AM EST [facility] Name Value Range Interpretation Description Data Sup porting Code Source(s) Document(s ) TissueExam SEE TEXT CLINICAL Normal (applies Tissue Exam [facility] INFORMATION: Anal to non-[facility] Health condyloma.PREOPER results) System ATIVE DIAGNOSIS: Same.POSTOPERATIV E DIAGNOSIS: Same.Surgical Pathology ReportFINAL DIAGNOSIS:A: Anus, right posterolateral lesion, biopsy:Anal intraepithelial lesion, 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 The specimen is submitted in toto in one cassette.C: In formalin, labeled "anterior lesion", the specimen consists of 2 becerra irregular portions of soft tissue, averaging 0.5cm in greatest dimension. The specimen is submitted in toto in one cassette.[email or web address](Signed out 08/27/2011) ID Date Data Source [id number] 10/05/2011 01:23:23 PM EDT [facility] Name Value Range Interpretation Description Data Sup porting Code Source(s) Document(s ) Erythrocyte 25 Above high Sedimentation [facility] sedimentation {mmlhr} normal Rate, Health rate by 2H Erythrocyte System Westergren method ID Date Data Source [id number] 10/05/2011 01:23:23 PM EDT [facility] Name Value Range Interpretation Description Data Sup porting Code Source(s) Document(s ) Leukocytes 6.3 Normal (applies WBC Count [facility] [#/volume] in {10\\S\\3_ to non-numeric Health Unspecified uL} results) System specimen by Automated count Erythrocytes 4.94 Normal (applies RBC Count [facility] [#/volume] in {10\\S\\6_ to non-numeric Health Blood by uL} results) System Automated count Hemoglobin 13.8 Below low normal Hemoglobin, [facility] [Mass/volume] in {gm/dL} Whole Blood Health Blood System Hematocrit 41.9 % Below low normal Hematocrit, [facility] [Volume Whole Blood Health Fraction] of System Blood Erythrocyte mean 84.8 fl Normal (applies MCV [facility] corpuscular to non-numeric Health volume [Entitic results) System volume] by Automated count Erythrocyte mean 27.9 pg Normal (applies MCH [facility] corpuscular to non-numeric Health hemoglobin results) System [Entitic mass] by Automated count Erythrocyte mean 32.8 Below low normal [facility]C [facility] corpuscular {gm/dL} Health hemoglobin System concentration [Mass/volume] by Automated count Erythrocyte 13.8 % Normal (applies RDW [facility] distribution to non-numeric Health width [Entitic results) System volume] by Automated count Platelets 208 Normal (applies Platelet [facility] [#/volume] in {10\\S\\3_ to non-numeric Count Health Plasma by uL} results) System Automated count Platelet mean 8.8 fl Normal (applies MPV [facility] volume [Entitic to non-numeric Health volume] in Blood results) System by Automated count Monocytes 0.9 Above high normal Monocyte [facility] [#/volume] in {10\\S\\3_ Count Health Blood by Manual uL} System count Eosinophils 0.0 Normal (applies Eosinophil [facility] [#/volume] in {10\\S\\3} to non-numeric Count Blood Health Blood results) System Basophils 0.00 Normal (applies Basophil [facility] [#/volume] in {10\\S\\3_ to non-numeric Count Health Blood by uL} results) System Automated count Neutrophils 3.5 Normal (applies Absolute [facility] [#/volume] in {10\\S\\3_ to non-numeric Neutrophil Health Body fluid uL} results) Count System Lymphocyte 1.8 Normal (applies Lymphocyte [facility] percent {10\\S\\3_ to non-numeric Absolute Health differential uL} results) System count (procedure) Neutrophils/100 56.3 % Normal (applies Neutrophil % [place] patience leukocytes in to non-numeric Health Blood by results) System Automated count Monocytes/100 14.6 % Above high normal Monocyte % [facility] leukocytes in Health Blood System Eosinophils/100 0.2 % Below low normal Eosinophil % [facility] leukocytes in Health Unspecified System specimen Basophils/100 0.5 % Normal (applies Basophil % [facility] leukocytes in to non-numeric Health Unspecified results) System specimen by Manual count Lymphocytes 28.4 % Normal (applies Lymphocyte % [facility] [#/volume] in to non-numeric Health Blood by results) System Automated count ID Date Data Source [id number] 10/05/2011 01:23:23 PM EDT [facility] System Name Value Range Interpretation Description Data Sup porting Code Source(s) Document(s ) Sodium 138 mmol/L Normal (applies Sodium, [facility] [Moles/volume] to non-numeric Serum Health in Serum or results) System Plasma Potassium 4.7 mmol/L Normal (applies Potassium, [facility] [Mass/volume] to non-numeric Serum Health in Serum or results) System Plasma Chloride 99 mmol/L Below low Chloride, [facility] [Moles/volume] normal Serum Health in Serum or System Plasma Carbon dioxide, 29.7 mmol/L Normal (applies CO2, Serum [facility] [facility] total to non-numeric Health [Moles/volume] results) System in Serum or Plasma Glucose 90 mg/dL Normal (applies Glucose, [facility] [Mass/volume] to non-numeric Serum Health in Serum or results) System Plasma TotalProtein 7.0 mg/dl Normal (applies Total [facility] to non-numeric Protein Health results) System Urea nitrogen 12 mg/dl Normal (applies Blood Urea [facility] [Mass/volume] to non-numeric Nitrogen, Health in Serum or results) Serum System Plasma Creatinine 0.59 mg/dl Normal (applies Creatinine, [facility] [Mass/volume] to non-numeric Serum Health in Serum or results) System Plasma Alkaline 49 {IU/L} Normal (applies Alkaline [facility] phosphatase to non-numeric Phosphatase, Health isoenzymes results) Serum System [Enzymatic activity/volume ] in Serum or Plasma by Heat stability Bilirubin.total 0.6 mg/dl Normal (applies Bilirubin, [facility] [Mass/volume] to non-numeric Serum Total Health in Serum or results) System Plasma Aspartate 402 {IU/L} Above high Aspartate [facility] aminotransferas normal Transaminase Health e [Enzymatic , Serum System activity/volume ] in Serum or Plasma by With P-5'-P Albumin 3.7 {gm/dl} Normal (applies Albumin, [facility] [Mass/volume] to non-numeric Serum Health in Serum or results) System Plasma I.Phosphorus 5.3 mg/dl Above high I. [facility] normal Phosphorus Health System Alanine 215 {IU/L} Above high Alanine [facility] aminotransferas normal Aminotransfe Health e [Enzymatic rase, Serum System activity/volume ] in Serum or Plasma Calcium 9.6 mg/dl Normal (applies Calcium, [facility] [Mass/volume] to non-numeric Total Serum Health in Serum or results) System Plasma A/GRatio 1.12 Normal (applies A/G Ratio [facility] to non-numeric Health results) System Urate 5.2 mg/dl Normal (applies Uric Acid, [facility] [Mass/volume] to non-numeric Serum Health in Serum or results) System Plasma Anion gap in 9.30 mmol/L Normal (applies Anion Gap [facility] Serum or Plasma to non-numeric Health results) System Glomerular Greater than Normal (applies GFR [facility] filtration 60 eGFR will to non-numeric Health rate/1.73 sq provide results) System M.predicted clinicians [Volume with a more Rate/Area] in accurate Serum or Plasma indicator of by renal function Creatinine-base then the serum d formula creatinine. (CKD-EPI) The eGFR is automatically calculated from an empiric formula (endorsed by the [employer]) which incorporates age, sex, and race.Clinician s may notice surprisingly low GFR's with serum creatinine valueswithin normal range- particularly in elderly women (with low muscle mass).In the hospital setting, the eGFR should add an element of safety in drug dosing, in assessing the risk of IV contrast administration , and in assessing vascular risk.The NKF staging system is as follows:Normal : eGFR >90 with no kidney markersStage 1: eGFR >90 with kidney markers*Stage 2: eGFR 60-89Stage 3: eGFR 30-59Stage 4: eGFR 15-29Stage 5: eGFR <15 (usually requiring dialysis)*Rolando ers include: Proteinuria, Hematuria, abnormal imaging-studie s, or other blood or urine test abnormalities ID Date Data Source [id number] 10/05/2011 01:23:23 PM EDT [facility] System Name Value Range Interpretation Description Data Sup porting Code Source(s) Document(s ) Creatine 9575 Above high normal Creatine [facility] kinase.MB {IU/L} Kinase, Serum Health System [Mass/volume ] in Serum or Plasma ID Date Data Source [id number] 10/29/2011 03:01:45 PM EDT [facility] Name Value Range Interpretation Description Data Sup porting Code Source(s) Document(s ) ViralBramds SEE Normal (applies Viral Bramds [facility] NOTEp24,p40,gp4 to non-numeric Health 1,p51,gp120,gp1 results) System 60. Human ReactiveReferen Abnormal HIV 1/2 EIA [facility] immunodeficien ce Range: (applies to Health cy virus Nonreactive non-numeric System antibody titer results) measurement (procedure) Interpretation: Repeatedly Reactive HIV-1AbWB Positive Abnormal HIV-1 Ab WB [facility] (applies to Health non-numeric System results) Interpretation SEE TEXT SEE Normal (applies Interpretati [facility] -HIV NOTE In to non-numeric on-HIV Health conjunction results) System with a Repeatedly Reactive HIV-1/2 screening test, a Positive HIV-1 Western Blot result confirms the presence of HIV-1 infection in patients greater than 24 months of age. In HIV seropositive patients less than 24 months of age, testing on a new plasma sample by the HIV-1 RNA Qualitative TMA assay (use Test Code 27173S) or a new EDTA whole blood specimen by the HIV-1 DNA PCR assay (Test Code 8401X) may detect viral or proviral nucleic acid sequences, respectively, and confirm infection. This information has been disclosed to you from confidential records which are protected by law. State law, 63.5(b) [address] [place] [address], prohibits you from making any further disclosure of this information without the specific written consent of the person to whom it pertains, or as otherwise permitted by law. HIV-2EIA DNR Normal (applies HIV-2 EIA [facility] to non-numeric Health results) System HIV-2-WB DNR Test Normal (applies HIV-2-WB [facility] Performed at: to non-numeric Health [facility] results) [place] [address] Kelli Murdock M.D. ID Date Data Source [id number] 11/10/2011 04:37:50 PM EDT [facility] Name Value Range Interpretation Description Data Sup porting Code Source(s) Document(s ) Color Yellow Normal (applies Color [facility] to non-numeric Health results) System Appearance of CLEAR Normal (applies Urine [facility] Urine to non-numeric Appearance Health results) System Specific gravity 1.016 Normal (applies Urine Specific [facility] of Urine to non-numeric [facility] results) System pH.. 6.0 Normal (applies pH.. [facility] {pH_units} to non-numeric Health results) System Glucose,UA Negative Normal (applies Glucose, UA [facility] to non-numeric Health results) System Protein TR Normal (applies Protein [facility] [Mass/volume] in to non-numeric Health Serum or Plasma results) System BilirubinUrine Negative Normal (applies Bilirubin [facility] to non-numeric Urine Health results) System Urobilinogen Less than Normal (applies Urobilinogen [facility] [Mass/volume] in 2.0 to non-numeric UA Health Urine Reference results) System Range: Negative or <=2.0 Ketones Negative Normal (applies Ketones UA [facility] [Mass/volume] in to non-numeric Health Urine results) System Nitrate+Nitrite Negative Normal (applies Nitrite [facility] [Mass/volume] in to non-numeric Health Unspecified results) System specimen Leukocyte Negative Normal (applies Leukocyte [facility] esterase to non-numeric Esterase Health [Units/volume] results) Concentration System in Urine Leukocytes 9 {/HPF} Abnormal White Blood [facility] [#/volume] in (applies to Cells Health Unspecified non-numeric System specimen by results) Automated count RedBloodCells Less than 1 Abnormal Red Blood [facility] /HPF (applies to Cells Health non-numeric System results) Mucus RARE Normal (applies Mucus [facility] to non-numeric Health results) System Epithelial cells 1 {/HPF} Normal (applies Epithelial [facility] [Presence] in to non-numeric Cells Health Unspecified results) System specimen by Wet preparation UrineBlood Negative Normal (applies Urine Blood [facility] to non-numeric Health results) System ID Date Data Source [id number] 12/27/2014 06:00:00 AM EDT [facility] Name Value Range Interpretation Description Data Sup porting Code Source(s) Document(s ) Sodium 139 Normal (applies Sodium, Serum [facility] [Moles/volume] in mmol/L to non-numeric Health Serum or Plasma results) System Potassium 3.8 Normal (applies Potassium, [facility] [Mass/volume] in mmol/L to non-numeric Serum Health Serum or Plasma results) System Chloride 103 Normal (applies Chloride, [facility] [Moles/volume] in mmol/L to non-numeric Serum Health Serum or Plasma results) System Carbon dioxide, 29.9 Normal (applies CO2, Serum [facility] total mmol/L to non-numeric Health [Moles/volume] in results) System Serum or Plasma TotalProtein 6.5 Normal (applies Total Protein [facility] mg/dl to non-numeric Health results) System Glucose 79 Normal (applies Glucose, [facility] [Mass/volume] in mg/dL to non-numeric Serum Health Serum or Plasma results) System Urea nitrogen 9 mg/dl Normal (applies Blood Urea [facility] [Mass/volume] in to non-numeric Nitrogen, Health Serum or Plasma results) Serum System Creatinine 0.58 Normal (applies Creatinine, [facility] [Mass/volume] in mg/dl to non-numeric Serum Health Serum or Plasma results) System Alkaline 44 Normal (applies Alkaline [facility] phosphatase {IU/L} to non-numeric Phosphatase, Health isoenzymes results) Serum System [Enzymatic activity/volume] in Serum or Plasma by Heat stability Bilirubin direct 0.4 Normal (applies Bilirubin, [facility] and total panel mg/dl to non-numeric Serum Total Health [Mass/volume] - results) System Serum or Plasma DirectBilirubin 0.1 Normal (applies Direct [facility] mg/dl to non-numeric Bilirubin Health results) System Aspartate 267 Above high Aspartate [facility] aminotransferase {IU/L} normal Transaminase, Health [Enzymatic Serum System activity/volume] in Serum or Plasma by With P-5'-P Albumin 3.3 Normal (applies Albumin, [facility] [Mass/volume] in {gm/dl} to non-numeric Serum Health Serum or Plasma results) System I.Phosphorus 3.9 Normal (applies I. Phosphorus [facility] mg/dl to non-numeric Health results) System Alanine 180 Above high Alanine [facility] aminotransferase {IU/L} normal Aminotransfer Health [Enzymatic ase, Serum System activity/volume] in Serum or Plasma Calcium 8.6 Normal (applies Calcium, [facility] [Mass/volume] in mg/dl to non-numeric Total Serum Health Serum or Plasma results) System A/GRatio 1.03 Normal (applies A/G Ratio [facility] to non-numeric Health results) System Urate 4.9 Normal (applies Uric Acid, [facility] [Mass/volume] in mg/dl to non-numeric Serum Health Serum or Plasma results) System Anion gap in Serum 6.10 Normal (applies Anion Gap [facility] [facility] or Plasma mmol/L to non-numeric Health results) System Glomerular > 90 Normal (applies GFR [facility] filtration to non-numeric Health rate/1.73 sq results) System M.predicted [Volume Rate/Area] in Serum or Plasma by Creatinine-based formula (CKD-EPI) eGFR will provide clinicians with a more accurate indicator of renal function then the serum creatinine. The eGFR is automa tically calculated from an empiric formula (endorsed by the National Kidney Foundat ion) which incorporates age, sex, and race.Clinicians may notice surprisingly low GFR's with serum creatinine valueswithin normal range- particularly in elderly wo men (with low muscle mass).In the hospital setting, the eGFR should add an element of safety in drug dosing, in assessing the risk of IV contrast administration, and in assessing vascular risk.The NKF staging system is as follows:Normal: eGFR >90 with no kidney markersStage 1: eGFR >90 with kidney markers*Stage 2: eGFR 60- 89Stage 3: eGFR 30-59Stage 4: eGFR 15-29Stage 5: eGFR <15 (usually requir ing dialysis)*Markers include: Proteinuria, Hematuria, abnormal imaging-studies, or other blood or urine test abnormalities ID Date Data Source [id number] 12/27/2014 06:00:00 AM EDT [facility] Name Value Range Interpretation Description Data Sup porting Code Source(s) Document(s ) Creatine 3486 Above high normal Creatine [facility] kinase.MB {IU/L} Kinase, Serum Health System [Mass/volume ] in Serum or Plasma ID Date Data Source [id number] 12/27/2014 06:00:00 AM EDT [facility] Name Value Range Interpretation Description Data Source(s ) Supporting Code Document(s ) Reagin Ab 1:2 Normal (applies to Titer-RPR [facility] [Titer] in non-numeric Health System Serum by results) RPR Reagin Ab Reactive Abnormal (applies RPR. [facility] [Presence] to non-numeric Health System in Serum by results) RPR ID Date Data Source [id number] 12/28/2014 06:00:00 AM EDT [facility] System Name Value Range Interpretation Description Data Sup porting Code Source(s) Document(s ) Erythrocyte 42 Above high Sedimentation [facility] sedimentation {mmlhr} normal Rate, Health rate by 2H Erythrocyte System Westergren method ID Date Data Source [id number] 12/28/2014 06:00:00 AM EDT [facility] Name Value Range Interpretation Description Data Sup porting Code Source(s) Document(s ) Leukocytes 12.5 Above high WBC Count [facility] [#/volume] in {10^3_uL normal Health Unspecified } System specimen by Automated count Erythrocytes 4.14 Below low normal RBC Count [facility] [#/volume] in {10^6_uL Health Blood by } System Automated count Hemoglobin 12.1 Below low normal Hemoglobin [facility] [Mass/volume] in {gm/dL} Health Blood System Hematocrit 36.0 % Below low normal Hematocrit [facility] [Volume Health Fraction] of System Blood Erythrocyte mean 87.0 fl Normal (applies MCV [facility] corpuscular to non-numeric Health volume [Entitic results) System volume] by Automated count Erythrocyte mean 29.2 pg Normal (applies MCH [facility] [facility] corpuscular to non-numeric Health hemoglobin results) System [Entitic mass] by Automated count Erythrocyte mean 33.6 Normal (applies MCHC [facility] [facility] corpuscular {gm/dL} to non-numeric Health hemoglobin results) System concentration [Mass/volume] by Automated count Erythrocyte 13.9 % Normal (applies RDW-CV [facility] distribution to non-numeric Health width [Entitic results) System volume] by Automated count Platelets 219 Normal (applies Platelet Count [facility] [#/volume] in {10^3_uL to non-numeric Health Plasma by } results) System Automated count Platelet mean 10.1 fl Normal (applies MPV [facility] volume [Entitic to non-numeric Health volume] in Blood results) System by Automated count Nucleated 0.0 Normal (applies NRBC % [facility] erythrocytes {/100_WB to non-numeric Health [#/volume] in C} results) System Body fluid NRBC# 0.00 Normal (applies NRBC # [facility] {10^6_uL to non-numeric Health } results) System Neutrophils/100 86.0 % Above high Neutrophil % [facility] leukocytes in normal Health Blood by System Automated count Neutrophils 10.7 Above high Neutrophil # [facility] [#/volume] in {10^3_uL normal Health Body fluid } System Lymphocytes 4.2 % Below low normal Lymphocyte % [facility] [#/volume] in Health Blood by System Automated count Lymphocyte 0.5 Below low normal Lymphocyte # [facility] percent {10^3_uL Health differential } System count (procedure) Monocytes/100 7.4 % Normal (applies Monocyte % [facility] leukocytes in to non-numeric Health Blood results) System Monocytes 0.9 Normal (applies Monocyte # [facility] [#/volume] in {10^3_uL to non-numeric Health Blood by Manual } results) System count Eosinophils/100 0.0 % Normal (applies Eosinophil % [place] patience leukocytes in to non-numeric Health Unspecified results) System specimen Eosinophils 0.00 Normal (applies Eosinophil # [facility] [#/volume] in {10^3_uL to non-numeric Health Blood } results) System Basophils/100 0.2 % Normal (applies Basophil % [facility] leukocytes in to non-numeric Health Unspecified results) System specimen by Manual count Basophils 0.02 Normal (applies Basophil # [facility] [#/volume] in {10^3_uL to non-numeric Health Blood by } results) System Automated count ImmatureGranuloc 0.28 Above high Immature [facility] ytes# {10^3_uL normal Granulocytes # Health } System ImmatureGranuloc 2.2 % Above high Immature [facility] ytes% normal Granulocytes % Health System ID Date Data Source [id number] 12/28/2014 06:00:00 AM EDT [facility] Name Value Range Interpretation Description Data Sup porting Code Source(s) Document(s ) Sodium 136 Normal (applies Sodium, Serum [facility] [Moles/volume] in mmol/L to non-numeric Health Serum or Plasma results) System Potassium 4.4 Normal (applies Potassium, [facility] [Mass/volume] in mmol/L to non-numeric Serum Health Serum or Plasma results) System Chloride 102 Normal (applies Chloride, [facility] [Moles/volume] in mmol/L to non-numeric Serum Health Serum or Plasma results) System Carbon dioxide, 27.9 Normal (applies CO2, Serum [facility] total mmol/L to non-numeric Health [Moles/volume] in results) System Serum or Plasma TotalProtein 6.6 Normal (applies Total Protein [facility] mg/dl to non-numeric Health results) System Glucose 107 Normal (applies Glucose, [facility] [Mass/volume] in mg/dL to non-numeric Serum Health Serum or Plasma results) System Urea nitrogen 13 Normal (applies Blood Urea [facility] [Mass/volume] in mg/dl to non-numeric Nitrogen, Health Serum or Plasma results) Serum System Creatinine 0.54 Normal (applies Creatinine, [facility] [Mass/volume] in mg/dl to non-numeric Serum Health Serum or Plasma results) System Alkaline 44 Normal (applies Alkaline [facility] phosphatase {IU/L} to non-numeric Phosphatase, Health isoenzymes results) Serum System [Enzymatic activity/volume] in Serum or Plasma by Heat stability Bilirubin.total 0.3 Normal (applies Bilirubin, [facility] [Mass/volume] in mg/dl to non-numeric Serum Total Health Serum or Plasma results) System DirectBilirubin 0.1 Normal (applies Direct [facility] mg/dl to non-numeric Bilirubin Health results) System Aspartate 234 Above high Aspartate [facility] aminotransferase {IU/L} normal Transaminase, Health [Enzymatic Serum System activity/volume] in Serum or Plasma by With P-5'-P Albumin 3.5 Normal (applies Albumin, [facility] [Mass/volume] in {gm/dl} to non-numeric Serum Health Serum or Plasma results) System I.Phosphorus 3.4 Normal (applies I. Phosphorus [facility] mg/dl to non-numeric Health results) System Alanine 177 Above high Alanine [facility] aminotransferase {IU/L} normal Aminotransfer Health [Enzymatic ase, Serum System activity/volume] in Serum or Plasma Calcium 8.8 Normal (applies Calcium, [facility] [Mass/volume] in mg/dl to non-numeric Total Serum Health Serum or Plasma results) System A/GRatio 1.13 Normal (applies A/G Ratio [facility] to non-numeric Health results) System Urate 4.5 Normal (applies Uric Acid, [facility] [Mass/volume] in mg/dl to non-numeric Serum Health Serum or Plasma results) System Anion gap in Serum 6.10 Normal (applies Anion Gap [place] patience or Plasma mmol/L to non-numeric Health results) System Glomerular > 90 Normal (applies GFR [facility] filtration to non-numeric Health rate/1.73 sq results) System M.predicted [Volume Rate/Area] in Serum or Plasma by Creatinine-based formula (CKD-EPI) eGFR will provide clinicians with a more accurate indicator of renal function then the serum creatinine. The eGFR is automa tically calculated from an empiric formula (endorsed by the [employer]) which incorporates age, sex, and race.Clinicians may notice surprisingly low GFR's with serum creatinine valueswithin normal range- particularly in elderly wo men (with low muscle mass).In the hospital setting, the eGFR should add an element of safety in drug dosing, in assessing the risk of IV contrast administration, and in assessing vascular risk.The NKF staging system is as follows:Normal: eGFR >90 with no kidney markersStage 1: eGFR >90 with kidney markers*Stage 2: eGFR 60- 89Stage 3: eGFR 30-59Stage 4: eGFR 15-29Stage 5: eGFR <15 (usually requir ing dialysis)*Markers include: Proteinuria, Hematuria, abnormal imaging-studies, or other blood or urine test abnormalities ID Date Data Source [id number] 12/28/2014 06:00:00 AM EDT [facility] System Name Value Range Interpretation Description Data Sup porting Code Source(s) Document(s ) Creatine 3271 Above high normal Creatine [facility] kinase.MB {IU/L} Kinase, Serum Health System [Mass/volume ] in Serum or Plasma ID Date Data Source [id number] 12/29/2014 06:00:00 AM EDT [facility] System Name Value Range Interpretation Description Data Sup porting Code Source(s) Document(s ) Type A Normal (applies Type [facility] to non-numeric Health results) System D Ab [Titer] in Positive Normal (applies Rh [facility] Serum or Plasma to non-numeric Health results) System AntibodyScreen Negative Normal (applies Antibody [facility] to non-numeric Screen Health results) System new pt--no history ID Date Data Source [id number] 12/29/2014 06:00:00 AM EDT [facility] System Name Value Range Interpretation Description Data Sup porting Code Source(s) Document(s ) aPTT in Blood 30.0 Normal (applies Activated [facility] by Coagulation {Seconds to non-numeric Partial Health assay } results) Thromboplastin System Time ID Date Data Source [id number] 12/29/2014 06:00:00 AM EDT [facility] System Name Value Range Interpretation Description Data Sup porting Code Source(s) Document(s ) Prothrombintim 11.70 Normal (applies Prothrombin [facility](PT) {seconds to non-numeric time (PT) Health System } results) INR in Blood 1.07 Normal (applies INR Result [facility] by Coagulation {Ratio} to non-numeric Health Sys tem assay results) Normal = 0.7-1.1Therapeutic = 2.0-3.0Mec hanical Heart = 3.0-4.5 ID Date Data Source [id number] 12/29/2014 06:00:00 AM EDT [facility]ria [facility] System Name Value Range Interpretation Description Data Sup porting Code Source(s) Document(s ) Sodium 136 Normal (applies Sodium, Serum [facility] [Moles/volume mmol/L to non-numeric Health Syst em ] in Serum or results) Plasma Potassium 4.4 Normal (applies Potassium, [facility] [Mass/volume] mmol/L to non-numeric Serum Health Syst em in Serum or results) Plasma Chloride 101 Normal (applies Chloride, [facility] [Moles/volume mmol/L to non-numeric Serum Health Syst em ] in Serum or results) Plasma Carbon 28.1 Normal (applies CO2, Serum [facility] dioxide, mmol/L to non-numeric Health System total results) [Moles/volume ] in Serum or Plasma Glucose 118 Above high normal Glucose, Serum [facility] [Mass/volume] mg/dL Health System in Serum or Plasma Urea nitrogen 14 mg/dl Normal (applies Blood Urea [facility] [Mass/volume] to non-numeric Nitrogen, Health Syst em in Serum or results) Serum Plasma Creatinine 0.50 Normal (applies Creatinine, [facility] [Mass/volume] mg/dl to non-numeric Serum Health Syst em in Serum or results) Plasma Calcium 9.0 Normal (applies Calcium, Total [facility] [Mass/volume] mg/dl to non-numeric Serum Health Syst em in Serum or results) Plasma Anion gap in 6.90 Normal (applies Anion Gap [facility] Serum or mmol/L to non-numeric Health System Plasma results) ID Date Data Source [id number] 12/29/2014 06:00:00 AM EDSophia Garcia alth System Name Value Range Interpretation Description Data Sup porting Code Source(s) Document(s ) Leukocytes 13.5 Above high WBC Count [facility] [#/volume] in {10^3_uL normal Health Unspecified } System specimen by Automated count Erythrocytes 4.24 Below low normal RBC Count [facility] [#/volume] in {10^6_uL Health Blood by } System Automated count Hemoglobin 12.4 Below low normal Hemoglobin [facility] [Mass/volume] in {gm/dL} Health Blood System Hematocrit 37.2 % Below low normal Hematocrit [facility] [Volume Health Fraction] of System Blood Erythrocyte mean 87.7 fl Normal (applies MCV [facility] corpuscular to non-numeric Health volume [Entitic results) System volume] by Automated count Erythrocyte mean 29.2 pg Normal (applies MCH [facility] corpuscular to non-numeric Health hemoglobin results) System [Entitic mass] by Automated count Erythrocyte mean 33.3 Normal (applies MCHC [facility] corpuscular {gm/dL} to non-numeric Health hemoglobin results) System concentration [Mass/volume] by Automated count Erythrocyte 14.3 % Normal (applies RDW-CV [facility] distribution to non-numeric Health width [Entitic results) System volume] by Automated count Platelets 222 Normal (applies Platelet Count [facility] [#/volume] in {10^3_uL to non-numeric Health Plasma by } results) System Automated count Platelet mean 10.6 fl Normal (applies MPV [facility] volume [Entitic to non-numeric Health volume] in Blood results) System by Automated count Nucleated 0.0 Normal (applies NRBC % [facility] erythrocytes {/100_WB to non-numeric Health [#/volume] in C} results) System Body fluid NRBC# 0.00 Normal (applies NRBC # [facility] {10^6_uL to non-numeric Health } results) System Neutrophils/100 80.2 % Above high Neutrophil % [facility] leukocytes in normal Health Blood by System Automated count Neutrophils 10.9 Above high Neutrophil # [facility] [#/volume] in {10^3_uL normal Health Body fluid } System Lymphocytes 4.1 % Below low normal Lymphocyte % [facility] [#/volume] in Health Blood by System Automated count Lymphocyte 0.6 Below low normal Lymphocyte # [facility] percent {10^3_uL Health differential } System count (procedure) Monocytes/100 10.6 % Above high Monocyte % [facility] leukocytes in normal Health Blood System Monocytes 1.4 Normal (applies Monocyte # [facility] [#/volume] in {10^3_uL to non-numeric Health Blood by Manual } results) System count Eosinophils/100 0.0 % Normal (applies Eosinophil % [place] patience leukocytes in to non-numeric Health Unspecified results) System specimen Eosinophils 0.00 Normal (applies Eosinophil # [facility] [#/volume] in {10^3_uL to non-numeric Health Blood } results) System Basophils/100 0.4 % Normal (applies Basophil % [facility] leukocytes in to non-numeric Health Unspecified results) System specimen by Manual count Basophils 0.05 Normal (applies Basophil # [facility] [#/volume] in {10^3_uL to non-numeric Health Blood by } results) System Automated count ImmatureGranuloc 0.63 Above high Immature [facility] ytes# {10^3_uL normal Granulocytes # Health } System ImmatureGranuloc 4.7 % Above high Immature [facility] ytes% normal Granulocytes % Health System ID Date Data Source [id number] 12/29/2014 06:00:00 AM EDT [facility] Name Value Range Interpretation Description Data Sup porting Code Source(s) Document(s ) Sodium 136 Normal (applies Sodium, Serum [facility] [Moles/volume] in mmol/L to non-numeric Health Serum or Plasma results) System Potassium 4.4 Normal (applies Potassium, [facility] [Mass/volume] in mmol/L to non-numeric Serum Health Serum or Plasma results) System Chloride 101 Normal (applies Chloride, [facility] [Moles/volume] in mmol/L to non-numeric Serum Health Serum or Plasma results) System Carbon dioxide, 26.7 Normal (applies CO2, Serum [facility] total mmol/L to non-numeric Health [Moles/volume] in results) System Serum or Plasma TotalProtein 7.0 Normal (applies Total Protein [facility] mg/dl to non-numeric Health results) System Glucose 116 Above high Glucose, [facility] [Mass/volume] in mg/dL normal Serum Health Serum or Plasma System Urea nitrogen 13 Normal (applies Blood Urea [facility] [Mass/volume] in mg/dl to non-numeric Nitrogen, Health Serum or Plasma results) Serum System Creatinine 0.53 Normal (applies Creatinine, [facility] [Mass/volume] in mg/dl to non-numeric Serum Health Serum or Plasma results) System Alkaline 45 Normal (applies Alkaline [facility] phosphatase {IU/L} to non-numeric Phosphatase, Health isoenzymes results) Serum System [Enzymatic activity/volume] in Serum or Plasma by Heat stability Bilirubin.total 0.3 Normal (applies Bilirubin, [facility] [Mass/volume] in mg/dl to non-numeric Serum Total Health Serum or Plasma results) System DirectBilirubin 0.1 Normal (applies Direct [facility] mg/dl to non-numeric Bilirubin Health results) System Aspartate 200 Above high Aspartate [facility] aminotransferase {IU/L} normal Transaminase, Health [Enzymatic Serum System activity/volume] in Serum or Plasma by With P-5'-P Albumin 3.6 Normal (applies Albumin, [facility] [Mass/volume] in {gm/dl} to non-numeric Serum Health Serum or Plasma results) System I.Phosphorus 3.3 Normal (applies I. Phosphorus [facility] mg/dl to non-numeric Health results) System Alanine 171 Above high Alanine [facility] aminotransferase {IU/L} normal Aminotransfer Health [Enzymatic ase, Serum System activity/volume] in Serum or Plasma Calcium 9.0 Normal (applies Calcium, [facility] [Mass/volume] in mg/dl to non-numeric Total Serum Health Serum or Plasma results) System A/GRatio 1.06 Normal (applies A/G Ratio [facility] to non-numeric Health results) System Urate 4.5 Normal (applies Uric Acid, [facility] [Mass/volume] in mg/dl to non-numeric Serum Health Serum or Plasma results) System Anion gap in Serum 8.30 Normal (applies Anion Gap [facility] ptaience or Plasma mmol/L to non-numeric Health results) System Glomerular > 90 Normal (applies GFR [facility] filtration to non-numeric Health rate/1.73 sq results) System M.predicted [Volume Rate/Area] in Serum or Plasma by Creatinine-based formula (CKD-EPI) eGFR will provide clinicians with a more accurate indicator of renal function then the serum creatinine. The eGFR is automa tically calculated from an empiric formula (endorsed by the [employer] ion) which incorporates age, sex, and race.Clinicians may notice surprisingly low GFR's with serum creatinine valueswithin normal range- particularly in elderly wo men (with low muscle mass).In the hospital setting, the eGFR should add an element of safety in drug dosing, in assessing the risk of IV contrast administration, and in assessing vascular risk.The NKF staging system is as follows:Normal: eGFR >90 with no kidney markersStage 1: eGFR >90 with kidney markers*Stage 2: eGFR 60- 89Stage 3: eGFR 30-59Stage 4: eGFR 15-29Stage 5: eGFR <15 (usually requir ing dialysis)*Markers include: Proteinuria, Hematuria, abnormal imaging-studies, or other blood or urine test abnormalities ID Date Data Source [id number] 12/29/2014 06:00:00 AM EDT [facility] System Name Value Range Interpretation Description Data Sup porting Code Source(s) Document(s ) Creatine 2811 Above high normal Creatine [facility] kinase.MB {IU/L} Kinase, Serum Health System [Mass/volume ] in Serum or Plasma ID Date Data Source [id number] 12/30/2014 06:00:00 AM EDT [facility] System Name Value Range Interpretation Description Data Sup porting Code Source(s) Document(s ) Prothrombintim 11.80 Normal (applies Prothrombin [facility](PT) {seconds to non-numeric time (PT) Health System } results) INR in Blood 1.08 Normal (applies INR Result [facility] by Coagulation {Ratio} to non-numeric Health Sys tem assay results) Normal = 0.7-1.1Therapeutic = 2.0-3.0Mec hanical Heart = 3.0-4.5 ID Date Data Source [id number] 12/30/2014 06:00:00 AM EDT [facility] System Name Value Range Interpretation Description Data Sup porting Code Source(s) Document(s ) Leukocytes 14.4 Above high normal WBC Count [facility] [#/volume] in {10^3_uL Health System Unspecified } specimen by Automated count manual diff done 12/26/14 Erythrocytes 4.71 {10^6_uL} Normal (applies RBC Count [facility] [#/volume] in Blood to non-numeric [facility] by Automated count results) Hemoglobin 13.8 {gm/dL} Below low normal Hemoglobin [facility] [Mass/volume] in Health System Blood Hematocrit [Volume 41.7 % Below low normal Hematocrit [facility] Fraction] of Blood Health Syst em Erythrocyte mean 88.5 fl Normal (applies MCV [facility] corpuscular volume to non-numeric Health System [Entitic volume] by results) Automated count Erythrocyte mean 29.3 pg Normal (applies MCH [facility] corpuscular to non-numeric Health System hemoglobin [Entitic results) mass] by Automated count Erythrocyte mean 33.1 {gm/dL} Normal (applies MCHC [facility] corpuscular to non-numeric Health System hemoglobin results) concentration [Mass/volume] by Automated count Erythrocyte 14.6 % Above high RDW-CV [facility] distribution width normal Health Syst em [Entitic volume] by Automated count Platelets 257 {10^3_uL} Normal (applies Platelet Count [place] patience [#/volume] in to non-numeric Health Syst em Plasma by Automated results) count Platelet mean 10.4 fl Normal (applies MPV [facility] volume [Entitic to non-numeric Health Sy stem volume] in Blood by results) Automated count Nucleated 0.0 {/100_WBC} Normal (applies NRBC % [facility] erythrocytes to non-numeric Health Syste m [#/volume] in Body results) fluid NRBC# 0.00 {10^6_uL} Normal (applies NRBC # [facility] to non-numeric Health System results) Neutrophils/100 80.7 % Above high Neutrophil % [facility] leukocytes in Blood normal Health Sys tem by Automated count Neutrophils 11.6 {10^3_uL} Above high Neutrophil # [facility] [#/volume] in Body normal Health Syst em fluid Lymphocytes 4.1 % Below low normal Lymphocyte % [facility] [#/volume] in Blood Health Sys tem by Automated count Lymphocyte percent 0.6 {10^3_uL} Below low normal Lymphocyte # [facility] differential count Health Syst em (procedure) Monocytes/100 8.6 % Normal (applies Monocyte % [facility] leukocytes in Blood to non-numeric Healt h System results) Monocytes 1.2 {10^3_uL} Normal (applies Monocyte # [facility] [#/volume] in Blood to non-numeric Healt h System by Manual count results) Eosinophils/100 0.0 % Normal (applies Eosinophil % [place] patience leukocytes in to non-numeric Health Syst em Unspecified results) specimen Eosinophils 0.00 {10^3_uL} Normal (applies Eosinophil # [facility] [#/volume] in Blood to non-numeric Healt h System results) Basophils/100 0.6 % Normal (applies Basophil % [facility] leukocytes in to non-numeric Health Syst em Unspecified results) specimen by Manual count Basophils 0.08 {10^3_uL} Normal (applies Basophil # [facility] [#/volume] in Blood to non-numeric Healt h System by Automated count results) ImmatureGranulocyte 0.87 {10^3_uL} Above high Immature [facility] s# normal Granulocytes # Health System ImmatureGranulocyte 6.0 % Above high Immature [facility] s% normal Granulocytes % Health System ID Date Data Source [id number] 12/30/2014 06:00:00 AM DENAE grey System Name Value Range Interpretation Description Data Sup porting Code Source(s) Document(s ) Sodium 137 Normal (applies Sodium, Serum [facility] [Moles/volume] in mmol/L to non-numeric Health Serum or Plasma results) System Potassium 4.6 Normal (applies Potassium, [facility] [Mass/volume] in mmol/L to non-numeric Serum Health Serum or Plasma results) System Chloride 97 Below low normal Chloride, [facility] [Moles/volume] in mmol/L Serum Health Serum or Plasma System Carbon dioxide, 31.2 Above high CO2, Serum [facility] total mmol/L normal Health [Moles/volume] in System Serum or Plasma TotalProtein 7.5 Normal (applies Total Protein [facility] mg/dl to non-numeric Health results) System Glucose 99 Normal (applies Glucose, [facility] [Mass/volume] in mg/dL to non-numeric Serum Health Serum or Plasma results) System Urea nitrogen 14 Normal (applies Blood Urea [facility] [Mass/volume] in mg/dl to non-numeric Nitrogen, Health Serum or Plasma results) Serum System Creatinine 0.50 Normal (applies Creatinine, [facility] [Mass/volume] in mg/dl to non-numeric Serum Health Serum or Plasma results) System Alkaline 50 Normal (applies Alkaline [facility] phosphatase {IU/L} to non-numeric Phosphatase, Health isoenzymes results) Serum System [Enzymatic activity/volume] in Serum or Plasma by Heat stability Bilirubin.total 0.5 Normal (applies Bilirubin, [facility] [Mass/volume] in mg/dl to non-numeric Serum Total Health Serum or Plasma results) System DirectBilirubin 0.1 Normal (applies Direct [facility] mg/dl to non-numeric Bilirubin Health results) System Aspartate 195 Above high Aspartate [facility] aminotransferase {IU/L} normal Transaminase, Health [Enzymatic Serum System activity/volume] in Serum or Plasma by With P-5'-P Albumin 4.0 Normal (applies Albumin, [facility] [Mass/volume] in {gm/dl} to non-numeric Serum Health Serum or Plasma results) System I.Phosphorus 4.2 Normal (applies I. Phosphorus [facility] mg/dl to non-numeric Health results) System Alanine 179 Above high Alanine [facility] aminotransferase {IU/L} normal Aminotransfer Health [Enzymatic ase, Serum System activity/volume] in Serum or Plasma Calcium 9.4 Normal (applies Calcium, [facility] [Mass/volume] in mg/dl to non-numeric Total Serum Health Serum or Plasma results) System A/GRatio 1.14 Normal (applies A/G Ratio [facility] to non-numeric Health results) System Urate 4.1 Normal (applies Uric Acid, [facility] [Mass/volume] in mg/dl to non-numeric Serum Health Serum or Plasma results) System Anion gap in Serum 8.80 Normal (applies Anion Gap [facility] patience or Plasma mmol/L to non-numeric Health results) System Glomerular > 90 Normal (applies GFR [facility] filtration to non-numeric Health rate/1.73 sq results) System M.predicted [Volume Rate/Area] in Serum or Plasma by Creatinine-based formula (CKD-EPI) eGFR will provide clinicians with a more accurate indicator of renal function then the serum creatinine. The eGFR is automa tically calculated from an empiric formula (endorsed by the [employer]) which incorporates age, sex, and race.Clinicians may notice surprisingly low GFR's with serum creatinine valueswithin normal range- particularly in elderly wo men (with low muscle mass).In the hospital setting, the eGFR should add an element of safety in drug dosing, in assessing the risk of IV contrast administration, and in assessing vascular risk.The NKF staging system is as follows:Normal: eGFR >90 with no kidney markersStage 1: eGFR >90 with kidney markers*Stage 2: eGFR 60- 89Stage 3: eGFR 30-59Stage 4: eGFR 15-29Stage 5: eGFR <15 (usually requir ing dialysis)*Markers include: Proteinuria, Hematuria, abnormal imaging-studies, or other blood or urine test abnormalities ID Date Data Source [id number] 12/30/2014 06:00:00 AM EDT Jeanie grey System Name Value Range Interpretation Description Data Sup porting Code Source(s) Document(s ) Creatine 3055 Above high normal Creatine [facility] kinase.MB {IU/L} Kinase, Serum Health System [Mass/volume ] in Serum or Plasma ID Date Data Source [id number] 12/30/2014 08:23:00 AM EDT [facility] Name Value Range Interpretation Description Data Sup porting Code Source(s) Document(s ) TissueExam Results for case # Normal (applies Tissue Exam [facility] [id number] to non-[facility] SURGICAL PATHOLOGY results) System REPORTCLINICAL INFORMATION: Rule out dermatomyositis. PREOPERATIVE DIAGNOSIS: Same.POSTOPERATIVE DIAGNOSIS: FINAL DIAGNOSIS: Final neuropathology diagnosis from Dr. Bernice Gonzalez at [facility] ([id number]):Skeleta l muscle, right quadriceps muscle, biopsy:Myopathy with inflammation, and perifascicular involvement, consistent with dermatomyositis, see description and comment.COMMENT:Th e pathologic findings remain consistent with dermatomyositis because the perifascicular regions are markedly involved and the central portions of the muscle fascicles are relatively preserved. The findings may well reflect the longstanding ( 6 year) nature of this patient's dermatomyositis. A search for tubuloreticular inclusions by electron microscopy, which might further support the diagnosis was unrevealing.The extent to which HIV infection may contribute to the present findings is uncertain. Muscle pathology known to be associated with HIV infection does not include inflammation. However, there are no nemaline rods or abnormal mitochondria upon electron microscopy, and there is no Type II atrophy that might suggest steroid effect. There are no red rimmed vacuoles and there is no intrasarcoplasmic amyloid or tubulofilaments that might suggest an inclusion body disorder.Clinical correlation is suggested.Comprehe nsive muscle biopsy analysis performed at [facility], [address] [place] [address], [id number]. Please refer to the original reports on file in the Laboratory, for complete descriptions and comments.RPS/stREM WALI CLARKE MDElectronically Signed By: GROSS DESCRIPTION: Received fresh, labeled "right quadriceps muscle biopsy", the specimen consists of a portion of red brown, striated fragment of muscle. The specimen is entirely submitted for special studies. No sections are submitted. PT/stPage 2 of 2 ID Date Data Source [id number] 01/03/2015 12:25:00 PM EDT [facility] System Name Value Range Interpretation Description Data Sup porting Code Source(s) Document(s ) Erythrocyte 28 Above high Sedimentation [facility] sedimentation {mmlhr} normal Rate, Health rate by 2H Erythrocyte System Westergren method ID Date Data Source [id number] 01/03/2015 12:25:00 PM EDT [facility] System Name Value Range Interpretation Description Data Sup porting Code Source(s) Document(s ) Polys 79 % Above high Polys [facility] normal [facility] Lymphocyte%. 6 % Below low normal Lymphocyte %. [facility] Variant 2 % Normal (applies Atypical [facility] lymphocytes to non-numeric Lymphocyte Health [Presence] in results) Count System Blood by Automated count Platelets Normal Normal (applies Platelet Count [facility] [#/volume] in to non-numeric Estimate Health Blood by results) System Estimate Monocyte%. 10 % Above high Monocyte %. [facility] normal [facility] Metamyelocytes 1 % Above high Metamyelocyte [facility] [#/volume] in normal Count Health Blood System NORM Yes Normal (applies NORM [facility] to non-numeric Health results) System Myelocytes 2 % Above high Myelocyte Count [facility] [#/volume] in normal Health Blood System ID Date Data Source [id number] 01/03/2015 12:25:00 PM EDT [facility] System Name Value Range Interpretation Description Data Sup porting Code Source(s) Document(s ) Leukocytes 9.8 Normal (applies WBC Count [facility] [#/volume] in {10^3_uL to non-numeric Health Syst em Unspecified } results) specimen by Automated count MANUAL DIFF TO FOLLOW Erythrocytes 4.94 {10^6_uL} Normal (applies RBC Count [facility] [#/volume] in Blood to non-numeric Healt h System by Automated count results) Hemoglobin 14.3 {gm/dL} Normal (applies Hemoglobin [facility] [Mass/volume] in to non-numeric Health S ystem Blood results) Hematocrit [Volume 43.2 % Normal (applies Hematocrit [facility] Fraction] of Blood to non-numeric Health System results) Erythrocyte mean 87.4 fl Normal (applies MCV [facility] corpuscular volume to non-numeric Health System [Entitic volume] by results) Automated count Erythrocyte mean 28.9 pg Normal (applies MCH [facility] corpuscular to non-numeric Health System hemoglobin [Entitic results) mass] by Automated count Erythrocyte mean 33.1 {gm/dL} Normal (applies MCHC [facility] corpuscular to non-numeric Health System hemoglobin results) concentration [Mass/volume] by Automated count Erythrocyte 14.6 % Above high RDW-CV [facility] distribution width normal Health Syst em [Entitic volume] by Automated count Platelets 225 {10^3_uL} Normal (applies Platelet Count [facility] patience [#/volume] in to non-numeric Health Syst em Plasma by Automated results) count Platelet mean 10.5 fl Normal (applies MPV [facility] volume [Entitic to non-numeric Health Sy stem volume] in Blood by results) Automated count Nucleated 0.0 {/100_WBC} Normal (applies NRBC % [facility] erythrocytes to non-numeric Health Syste m [#/volume] in Body results) fluid NRBC# 0.00 {10^6_uL} Normal (applies NRBC # [facility] to non-numeric Health System results) Neutrophils/100 78.7 % Above high Neutrophil % [facility] leukocytes in Blood normal Health Sys tem by Automated count Neutrophils 7.7 {10^3_uL} Normal (applies Neutrophil # [facility] patience [#/volume] in Body to non-numeric Health System fluid results) Lymphocytes 6.9 % Below low normal Lymphocyte % [facility] [#/volume] in Blood Health Sys tem by Automated count Lymphocyte percent 0.7 {10^3_uL} Below low normal Lymphocyte # [facility] differential count Health Syst em (procedure) Monocytes/100 8.6 % Normal (applies Monocyte % [facility] leukocytes in Blood to non-numeric Healt h System results) Monocytes 0.8 {10^3_uL} Normal (applies Monocyte # [facility] [#/volume] in Blood to non-numeric Healt h System by Manual count results) Eosinophils/100 0.2 % Normal (applies Eosinophil % [facility] patience leukocytes in to non-numeric Health Syst em Unspecified results) specimen Eosinophils 0.02 {10^3_uL} Normal (applies Eosinophil # [facility] [#/volume] in Blood to non-numeric Healt h System results) Basophils/100 0.5 % Normal (applies Basophil % [facility] leukocytes in to non-numeric Health Syst em Unspecified results) specimen by Manual count Basophils 0.05 {10^3_uL} Normal (applies Basophil # [facility] [#/volume] in Blood to non-numeric Healt h System by Automated count results) ImmatureGranulocyte 0.50 {10^3_uL} Above high Immature [facility] s# normal Granulocytes # Health System ImmatureGranulocyte 5.1 % Above high Immature [facility] s% normal Granulocytes % Health System ID Date Data Source [id number] 01/03/2015 12:25:00 PM EDT [facility] System Name Value Range Interpretation Description Data Sup porting Code Source(s) Document(s ) Sodium 135 Normal (applies Sodium, Serum [facility] [Moles/volume] in mmol/L to non-numeric Health Serum or Plasma results) System Potassium 4.0 Normal (applies Potassium, [facility] [Mass/volume] in mmol/L to non-numeric Serum Health Serum or Plasma results) System Chloride 97 Below low normal Chloride, [facility] [Moles/volume] in mmol/L Serum Health Serum or Plasma System Carbon dioxide, 28.9 Normal (applies CO2, Serum [facility] total mmol/L to non-numeric Health [Moles/volume] in results) System Serum or Plasma TotalProtein 7.2 Normal (applies Total Protein [facility] mg/dl to non-numeric Health results) System Glucose 98 Normal (applies Glucose, [facility] [Mass/volume] in mg/dL to non-numeric Serum Health Serum or Plasma results) System Urea nitrogen 18 Normal (applies Blood Urea [facility] [Mass/volume] in mg/dl to non-numeric Nitrogen, Health Serum or Plasma results) Serum System Creatinine 0.56 Normal (applies Creatinine, [facility] [Mass/volume] in mg/dl to non-numeric Serum Health Serum or Plasma results) System Alkaline 51 Normal (applies Alkaline [facility] phosphatase {IU/L} to non-numeric Phosphatase, Health isoenzymes results) Serum System [Enzymatic activity/volume] in Serum or Plasma by Heat stability Bilirubin.total 0.6 Normal (applies Bilirubin, [facility] [Mass/volume] in mg/dl to non-numeric Serum Total Health Serum or Plasma results) System DirectBilirubin 0.1 Normal (applies Direct [facility] mg/dl to non-numeric Bilirubin Health results) System Aspartate 245 Above high Aspartate [facility] aminotransferase {IU/L} normal Transaminase, Health [Enzymatic Serum System activity/volume] in Serum or Plasma by With P-5'-P Albumin 3.8 Normal (applies Albumin, [facility] [Mass/volume] in {gm/dl} to non-numeric Serum Health Serum or Plasma results) System I.Phosphorus 4.1 Normal (applies I. Phosphorus [facility] mg/dl to non-numeric Health results) System Alanine 185 Above high Alanine [facility] aminotransferase {IU/L} normal Aminotransfer Health [Enzymatic ase, Serum System activity/volume] in Serum or Plasma Calcium 9.2 Normal (applies Calcium, [facility] [Mass/volume] in mg/dl to non-numeric Total Serum Health Serum or Plasma results) System A/GRatio 1.12 Normal (applies A/G Ratio [facility] to non-numeric Health results) System Urate 6.7 Normal (applies Uric Acid, [facility] [Mass/volume] in mg/dl to non-numeric Serum Health Serum or Plasma results) System Anion gap in Serum 9.10 Normal (applies Anion Gap [facility] patience or Plasma mmol/L to non-numeric Health results) System Glomerular > 90 Normal (applies GFR [facility] filtration to non-numeric Health rate/1.73 sq results) System M.predicted [Volume Rate/Area] in Serum or Plasma by Creatinine-based formula (CKD-EPI) eGFR will provide clinicians with a more accurate indicator of renal function then the serum creatinine. The eGFR is automa tically calculated from an empiric formula (endorsed by the National Kidney [employer] ion) which incorporates age, sex, and race.Clinicians may notice surprisingly low GFR's with serum creatinine valueswithin normal range- particularly in elderly wo men (with low muscle mass).In the hospital setting, the eGFR should add an element of safety in drug dosing, in assessing the risk of IV contrast administration, and in assessing vascular risk.The NKF staging system is as follows:Normal: eGFR >90 with no kidney markersStage 1: eGFR >90 with kidney markers*Stage 2: eGFR 60- 89Stage 3: eGFR 30-59Stage 4: eGFR 15-29Stage 5: eGFR <15 (usually requir ing dialysis)*Markers include: Proteinuria, Hematuria, abnormal imaging-studies, or other blood or urine test abnormalities ID Date Data Source [id number] 01/03/2015 12:25:00 PM EDT Jeanie [facility] alth System Name Value Range Interpretation Description Data Sup porting Code Source(s) Document(s ) Creatine 3483 Above high normal Creatine [facility] kinase.MB {IU/L} Kinase, Serum [facility] System [Mass/volume ] in Serum or Plasma ID Date Data Source [id number] 02/04/2015 10:06:00 AM EDT Jeanie [facility] alth System Name Value Range Interpretation Description Data Sup porting Code Source(s) Document(s ) Aldolase 43.3 U/L Above high normal Aldolase, [facility] [Enzymatic Serum Health System activity/vol ume] in Serum or Plasma Test Performed at: [facility], [place] [address] Andres Leon M.D. ID Date Data Source [id number] 02/04/2015 10:06:00 AM EDT [facility] alth System Name Value Range Interpretation Description Data Sup porting Code Source(s) Document(s ) Erythrocyte 31 Above high Sedimentation [facility] sedimentation {mmlhr} normal Rate, Health rate by 2H Erythrocyte System Westergren method ID Date Data Source [id number] 02/04/2015 10:06:00 AM EDT [facility] System Name Value Range Interpretation Description Data Sup porting Code Source(s) Document(s ) Leukocytes 6.9 Normal (applies WBC Count [facility] [#/volume] in {10^3_uL to non-numeric Health Unspecified } results) System specimen by Automated count Erythrocytes 4.66 Below low normal RBC Count [facility] [#/volume] in {10^6_uL Health Blood by } System Automated count Hemoglobin 13.6 Below low normal Hemoglobin [facility] [Mass/volume] in {gm/dL} Health Blood System Hematocrit 40.3 % Below low normal Hematocrit [facility] [Volume Health Fraction] of System Blood Erythrocyte mean 86.5 fl Normal (applies MCV [facility] corpuscular to non-numeric Health volume [Entitic results) System volume] by Automated count Erythrocyte mean 29.2 pg Normal (applies MCH [facility] corpuscular to non-numeric Health hemoglobin results) System [Entitic mass] by Automated count Erythrocyte mean 33.7 Normal (applies MCHC [facility] corpuscular {gm/dL} to non-numeric Health hemoglobin results) System concentration [Mass/volume] by Automated count Erythrocyte 15.9 % Above high RDW-CV [facility] distribution normal Health width [Entitic System volume] by Automated count Platelets 208 Normal (applies Platelet Count [facility] [#/volume] in {10^3_uL to non-numeric Health Plasma by } results) System Automated count Platelet mean 10.0 fl Normal (applies MPV [facility] volume [Entitic to non-numeric Health volume] in Blood results) System by Automated count Nucleated 0.0 Normal (applies NRBC % [facility] erythrocytes {/100_WB to non-numeric Health [#/volume] in C} results) System Body fluid NRBC# 0.00 Normal (applies NRBC # [facility] {10^6_uL to non-numeric Health } results) System Neutrophils/100 65.5 % Normal (applies Neutrophil % [facility] patience leukocytes in to non-numeric Health Blood by results) System Automated count Neutrophils 4.5 Normal (applies Neutrophil # [facility] [#/volume] in {10^3_uL to non-numeric Health Body fluid } results) System Lymphocytes 12.2 % Below low normal Lymphocyte % [facility] [#/volume] in Health Blood by System Automated count Lymphocyte 0.8 Below low normal Lymphocyte # [facility] percent {10^3_uL Health differential } System count (procedure) Monocytes/100 15.2 % Above high Monocyte % [facility] leukocytes in normal Health Blood System Monocytes 1.1 Normal (applies Monocyte # [facility] [#/volume] in {10^3_uL to non-numeric Health Blood by Manual } results) System count Eosinophils/100 1.6 % Normal (applies Eosinophil % [facility] patience leukocytes in to non-numeric Health Unspecified results) System specimen Eosinophils 0.11 Normal (applies Eosinophil # [facility] [#/volume] in {10^3_uL to non-numeric Health Blood } results) System Basophils/100 0.7 % Normal (applies Basophil % [facility] leukocytes in to non-numeric Health Unspecified results) System specimen by Manual count Basophils 0.05 Normal (applies Basophil # [facility] [#/volume] in {10^3_uL to non-numeric Health Blood by } results) System Automated count ImmatureGranuloc 0.33 Above high Immature [facility] ytes# {10^3_uL normal Granulocytes # Health } System ImmatureGranuloc 4.8 % Above high Immature [facility] ytes% normal Granulocytes % Health System ID Date Data Source [id number] 02/04/2015 10:06:00 AM EDT [facility] Name Value Range Interpretation Description Data Sup porting Code Source(s) Document(s ) Sodium 136 Normal (applies Sodium, Serum [facility] [Moles/volume] in mmol/L to non-numeric Health Serum or Plasma results) System Potassium 3.9 Normal (applies Potassium, [facility] [Mass/volume] in mmol/L to non-numeric Serum Health Serum or Plasma results) System Chloride 101 Normal (applies Chloride, [facility] [Moles/volume] in mmol/L to non-numeric Serum Health Serum or Plasma results) System Carbon dioxide, 29.0 Normal (applies CO2, Serum [facility] total mmol/L to non-numeric Health [Moles/volume] in results) System Serum or Plasma TotalProtein 7.3 Normal (applies Total Protein [facility] mg/dl to non-numeric Health results) System Glucose 95 Normal (applies Glucose, [facility] [Mass/volume] in mg/dL to non-numeric Serum Health Serum or Plasma results) System Urea nitrogen 10 Normal (applies Blood Urea [facility] [Mass/volume] in mg/dl to non-numeric Nitrogen, Health Serum or Plasma results) Serum System Creatinine 0.51 Normal (applies Creatinine, [facility] [Mass/volume] in mg/dl to non-numeric Serum Health Serum or Plasma results) System Alkaline 43 Normal (applies Alkaline [facility] phosphatase {IU/L} to non-numeric Phosphatase, Health isoenzymes results) Serum System [Enzymatic activity/volume] in Serum or Plasma by Heat stability Bilirubin.total 0.6 Normal (applies Bilirubin, [facility] [Mass/volume] in mg/dl to non-numeric Serum Total Health Serum or Plasma results) System DirectBilirubin 0.1 Normal (applies Direct [facility] mg/dl to non-numeric Bilirubin Health results) System Aspartate 126 Above high Aspartate [facility] aminotransferase {IU/L} normal Transaminase, Health [Enzymatic Serum System activity/volume] in Serum or Plasma by With P-5'-P Albumin 4.3 Normal (applies Albumin, [facility] [Mass/volume] in {gm/dl} to non-numeric Serum Health Serum or Plasma results) System I.Phosphorus 3.6 Normal (applies I. Phosphorus [facility] mg/dl to non-numeric Health results) System Alanine 86 Above high Alanine [facility] aminotransferase {IU/L} normal Aminotransfer Health [Enzymatic ase, Serum System activity/volume] in Serum or Plasma Calcium 9.3 Normal (applies Calcium, [facility] [Mass/volume] in mg/dl to non-numeric Total Serum Health Serum or Plasma results) System A/GRatio 1.43 Normal (applies A/G Ratio [facility] to non-numeric Health results) System Urate 6.6 Normal (applies Uric Acid, [facility] [Mass/volume] in mg/dl to non-numeric Serum Health Serum or Plasma results) System Anion gap in Serum 6.00 Normal (applies Anion Gap [facility] patience or Plasma mmol/L to non-numeric Health results) System Glomerular > 90 Normal (applies GFR [facility] filtration to non-numeric Health rate/1.73 sq results) System M.predicted [Volume Rate/Area] in Serum or Plasma by Creatinine-based formula (CKD-EPI) eGFR will provide clinicians with a more accurate indicator of renal function then the serum creatinine. The eGFR is automa tically calculated from an empiric formula (endorsed by the National Kidney [employer] ion) which incorporates age, sex, and race.Clinicians may notice surprisingly low GFR's with serum creatinine valueswithin normal range- particularly in elderly wo men (with low muscle mass).In the hospital setting, the eGFR should add an element of safety in drug dosing, in assessing the risk of IV contrast administration, and in assessing vascular risk.The NKF staging system is as follows:Normal: eGFR >90 with no kidney markersStage 1: eGFR >90 with kidney markers*Stage 2: eGFR 60- 89Stage 3: eGFR 30-59Stage 4: eGFR 15-29Stage 5: eGFR <15 (usually requir ing dialysis)*Markers include: Proteinuria, Hematuria, abnormal imaging-studies, or other blood or urine test abnormalities ID Date Data Source [id number] 02/04/2015 10:06:00 AM EDT [facility] System Name Value Range Interpretation Description Data Sup porting Code Source(s) Document(s ) Creatine 1654 Above high normal Creatine [facility] kinase.MB {IU/L} Kinase, Serum Health System [Mass/volume ] in Serum or Plasma ID Date Data Source [id number] 02/04/2015 11:50:00 AM EDT [facility] He alth System Name Value Range Interpretation Description Data Sup porting Code Source(s) Document(s ) Thyrotropin 0.670 Normal (applies Thyroid [facility] [Mass/volume] {mIU/mL} to non-numeric Stimulating Health Sy stem in Serum or results) Hormone, Serum Plasma ID Date Data Source [id number] 02/04/2015 11:57:00 AM EDT [facility]ie He alth System Name Value Range Interpretation Description Data Sup porting Code Source(s) Document(s ) Amphetamine Negative Normal (applies Amphetamine [facility] [Mass/volume] to non-numeric Level, Urine Health in Urine results) System Cut-off = 1000 ng/mL Reference Range: NE GATIVE 1000 ng/ml Barbiturates Negative Normal (applies to Barbiturate [facility] [Mass/volume] in non-numeric Screen, Urine Health System Urine by Screen results) method Cut-off = 200 ng/mL Reference Range: NEG ATIVE 200 ng/ml Benzodiazepines Negative Normal (applies Benzodiazepines, [facility] [Mass/volume] in to non-numeric Urine Health S ystem Urine results) Cut-off = 200 ng/mL Reference Range: NEG ATIVE 200 ng/ml Cocaine Negative Normal (applies Cocaine [facility] metabolites.other to non-numeric Metabolite Health System [Mass/volume] in Urine results) Screen, Urine Cut-off = 300 ng/mL Reference Range: NEG ATIVE 300 ng/ml Methadone Negative Normal (applies to Methadone Level, [facility] Health [Mass/volume] in non-numeric Urine System Urine results) Cut-off = 300 ng/mL Reference Range: NEG ATIVE 300 ng/ml [id number],Urine Negative Normal (applies to Opiate 300, [facility] non-numeric results) Urine System Cut-off = 300 ng/mL Reference Range: NEG ATIVE 300 ng/ml Phencyclidine Negative Normal (applies Phencyclidine, Urine [facility] [Mass/volume] in to non-numeric Health S ystem Urine results) Cut-off = 25 ng/mL Reference Range: NEGA TIVE 25 ng/ml THC Negative Normal (applies to non-numeric resul ts) THC [facility] Cutt-off = 50These results are for medic al treatment only. The positive findings are unconfirmed. Request confirmatory/quanti tative test if needed. Reference Range: NEGATIVE 50 ng/mL ID Date Data Source [id number] 02/13/2015 01:16:00 PM EDT [facility] System Name Value Range Interpretation Description Data Sup porting Code Source(s) Document(s ) TotalB-CD1 1 {Percent} Below low normal Total B-CD19 [facility] 9 [facility] TotalT-CD3 62 Normal (applies Total T-CD3 [facility] to non-numeric Health System results) T-HelperCD 29 {Percent} Below low normal T-[place] CD4+ [facility] patience 4+ Health System TSuppresso 26 Normal (applies T Suppressor [facility] rCD8+ to non-numeric CD8+ Health System results) [place]/Sup 1.09 Normal (applies [place]/Suppres [facility] pressor to non-numeric sor Health System results) Message DNR Test Normal (applies Message [facility] Performed to non-numeric Health System at: [facility] - results) [facility], [place] [address] Andres Leon M.D. LymphRel.C 747 Below low normal Lymph Rel. [facility] ount {Cells/mcL} Count Health System CD19 < 20 Below low normal CD19 [facility] CD3 479 Below low normal CD3 [facility] {Cells/mcL} Health System HelperCD4+ 227 Below low normal [place] CD4+ [facility] {Cells/mcL} Health System SuppressCD 209 Normal (applies Suppress CD8+ [facility] 8+ to non-numeric Health System results) ID Date Data Source [id number] 02/13/2015 01:16:00 PM EDT [facility] Name Value Range Interpretation Description Data Sup porting Code Source(s) Document(s ) Aldolase 41.2 U/L Above high normal Aldolase, [facility] [Enzymatic Serum Health System activity/vol ume] in Serum or Plasma Test Performed at: [facility], [place] [address] Andres Leon M.D. ID Date Data Source [id number] 02/13/2015 01:16:00 PM EDT [facility]ie Garcia alth System Name Value Range Interpretation Description Data Sup porting Code Source(s) Document(s ) Triglyceride 131 Normal (applies Triglycerides, [facility] [Mass/volume] mg/dl to non-numeric Serum Health in Serum or results) System Plasma Optimal = < 100 mg/dLBoderline High = 15 0 - 199 mg/dLHigh = 200 - 499 mg/dLVery High = > 500 mg/dL Cholesterol 194 mg/dl Normal (applies Cholesterol, Serum [facility] [Mass/volume] in to non-numeric Health S yste Serum or Plasma results) <200 mg/dL = [id number] - 239 md/dL = Borderline>240 mg/dL = High Risk Cholesterol in HDL 40.0 mg/dL Normal (applies HDL Cholestero l, [facility] [Mass/volume] in to non-numeric Serum Health S yste Serum or Plasma results) Cholesterol in LDL 127.8 mg/dL Normal (applies Low Density [facility] [Mass/volume] in to non-numeric Lipoprotein, Healt h System Serum or Plasma results) Calculated OPTIMAL: LESS THAN 100 mg/dLNEAR OPTIMAL : 100 - 129 mg/dLBODERLINE HIGH: 130 - 150 mg/dL Cholesterol in VLDL 26.2 Normal (applies to VLDL, Serum [facility] [Mass/volume] in Serum non-numeric results) System or Plasma CHDRisk 4.85 Normal (applies to CHD Risk [facility] non-numeric results) System ID Date Data Source [id number] 02/13/2015 01:16:00 PM EDT Jeanie Garcia alth System Name Value Range Interpretation Description Data Sup porting Code Source(s) Document(s ) Creatine 2121 Above high normal Creatine [facility] kinase.MB {IU/L} Kinase, Serum Health System [Mass/volume ] in Serum or Plasma ID Date Data Source [id number] 03/07/2015 02:58:00 PM EDT Jeanie Garcia alth System Name Value Range Interpretation Description Data Sup porting Code Source(s) Document(s ) Aldolase 3.9 U/L Normal (applies to Aldolase, [facility] [Enzymatic non-numeric Serum Health System activity/vol results) ume] in Serum or Plasma Test Performed at: [facility] , [place] [address] Andres Leon M.D. ID Date Data Source [id number] 03/07/2015 02:58:00 PM EDT Jeanie Jose grey System Name Value Range Interpretation Description Data Source(s ) Supporting Code Document(s ) 25Hydrox 12 ng/mL Below low normal 25 Hydroxy [facility] yVitamin Vitamin D Health System D 25Hydrox 12 ng/mL Normal (applies to 25 Hydroxy D3 [facility] yD3 non-numeric Health System results) 25Hydrox < 4 Normal (applies to 25 Hydroxy D2 [facility] yD2 non-numeric Health System results) 25-OHD3 indicates both endogenous produc tion and supplementation. 25- OHD2 is an indicator of exogenous source s such as diet or supplementation. Therapy is based on measurement of Total 25 -OHD, with levels <20 ng/mL indicative of Vitamin D deficiency, while levels b etween 20 ng/mL and 30 ng/mL suggest insufficiency. Optimal levels are > or = 30 ng/mL. Test Performed at: [facility], [place] [address] Andres Leon M.D. ID Date Data Source [id number] 03/07/2015 02:58:00 PM EDT Jeanie Garcia que System Name Value Range Interpretation Description Data Sup porting Code Source(s) Document(s ) Erythrocyte 14 Normal (applies Sedimentation [facility] sedimentation {mmlhr} to non-numeric Rate, Health rate by 2H results) Erythrocyte System Westergren method ID Date Data Source [id number] 03/07/2015 02:58:00 PM EDT Jeanie Jose grey System Name Value Range Interpretation Description Data Sup porting Code Source(s) Document(s ) Sodium 138 Normal (applies Sodium, Serum [facility] [Moles/volume] in mmol/L to non-numeric Health Serum or Plasma results) System Potassium 4.0 Normal (applies Potassium, [facility] [Mass/volume] in mmol/L to non-numeric Serum Health Serum or Plasma results) System Chloride 100 Below low normal Chloride, [facility] [Moles/volume] in mmol/L Serum Health Serum or Plasma System Carbon dioxide, 29.9 Normal (applies CO2, Serum [facility] total mmol/L to non-numeric Health [Moles/volume] in results) System Serum or Plasma TotalProtein 7.7 Normal (applies Total Protein [facility] mg/dl to non-numeric Health results) System Glucose 97 Normal (applies Glucose, [facility] [Mass/volume] in mg/dL to non-numeric Serum Health Serum or Plasma results) System Urea nitrogen 14 Normal (applies Blood Urea [facility] [Mass/volume] in mg/dl to non-numeric Nitrogen, Health Serum or Plasma results) Serum System Creatinine 0.65 Normal (applies Creatinine, [facility] [Mass/volume] in mg/dl to non-numeric Serum Health Serum or Plasma results) System Alkaline 46 Normal (applies Alkaline [facility] phosphatase {IU/L} to non-numeric Phosphatase, Health isoenzymes results) Serum System [Enzymatic activity/volume] in Serum or Plasma by Heat stability Bilirubin.total 0.5 Normal (applies Bilirubin, [facility] [Mass/volume] in mg/dl to non-numeric Serum Total Health Serum or Plasma results) System DirectBilirubin 0.1 Normal (applies Direct [facility] mg/dl to non-numeric Bilirubin Health results) System Aspartate 53 Above high Aspartate [facility] aminotransferase {IU/L} normal Transaminase, Health [Enzymatic Serum System activity/volume] in Serum or Plasma by With P-5'-P Albumin 4.4 Normal (applies Albumin, [facility] [Mass/volume] in {gm/dl} to non-numeric Serum Health Serum or Plasma results) System I.Phosphorus 4.1 Normal (applies I. Phosphorus [facility] mg/dl to non-numeric Health results) System Alanine 50 Above high Alanine [facility] aminotransferase {IU/L} normal Aminotransfer Health [Enzymatic ase, Serum System activity/volume] in Serum or Plasma Calcium 9.3 Normal (applies Calcium, [facility] [Mass/volume] in mg/dl to non-numeric Total Serum Health Serum or Plasma results) System A/GRatio 1.33 Normal (applies A/G Ratio [facility] to non-numeric Health results) System Urate 6.3 Normal (applies Uric Acid, [facility] [Mass/volume] in mg/dl to non-numeric Serum Health Serum or Plasma results) System Anion gap in Serum 8.10 Normal (applies Anion Gap Calderon patience or Plasma mmol/L to non-numeric Health results) System Glomerular > 90 Normal (applies GFR [facility] filtration to non-numeric Health rate/1.73 sq results) System M.predicted [Volume Rate/Area] in Serum or Plasma by Creatinine-based formula (CKD-EPI) eGFR will provide clinicians with a more accurate indicator of renal function then the serum creatinine. The eGFR is automa tically calculated from an empiric formula (endorsed by the National Kidney Foundat ion) which incorporates age, sex, and race.Clinicians may notice surprisingly low GFR's with serum creatinine valueswithin normal range- particularly in elderly wo men (with low muscle mass).In the hospital setting, the eGFR should add an element of safety in drug dosing, in assessing the risk of IV contrast administration, and in assessing vascular risk.The NKF staging system is as follows:Normal: eGFR >90 with no kidney markersStage 1: eGFR >90 with kidney markers*Stage 2: eGFR 60- 89Stage 3: eGFR 30-59Stage 4: eGFR 15-29Stage 5: eGFR <15 (usually requir ing dialysis)*Markers include: Proteinuria, Hematuria, abnormal imaging-studies, or other blood or urine test abnormalities ID Date Data Source [id number] 03/04/2020 02:43:27 AM EDT [facility] System Name Value Range Interpretation Description Data Source(s ) Supporting Code Document(s ) Reagin Ab Non-react Normal (applies to RPR. [facility] [Presence] felipa non-numeric Health System in Serum by results) RPR ID Date Data Source [id number] 03/04/2020 02:43:27 AM EDT [facility] System Name Value Range Interpretation Code Description Data Lexy rce(s) Supporting Document(s ) GdJ2EXg 152.98 Normal (applies to SrY7LKk [facility] non-numeric results) Health Sy stem tHbWB 4553.63 Normal (applies to tHbWB [facility] non-numeric results) Health Sy stem %HbA1C 5.23 % Normal (applies to %HbA1C [facility] non-numeric results) Health Sy stem ID Date Data Source [id number] 03/04/2020 02:43:27 AM EDT [facility] System Name Value Range Interpretation Description Data Sup porting Code Source(s) Document(s ) Color YELLOW Normal (applies Color [facility] to non-numeric Health results) System Appearance of CLEAR Normal (applies Urine [facility] Urine to non-numeric Appearance Health results) System Specific gravity 1.015 Normal (applies Urine Specific Mo [facility] of Urine to non-numeric [facility] results) System pH.. 6.0 Normal (applies pH.. [facility] {pH_units} to non-numeric Health results) System Glucose,UA NEGATIVE Normal (applies Glucose, UA [facility] to non-numeric Health results) System Protein NEGATIVE Normal (applies Protein [facility] [Mass/volume] in to non-numeric Health Serum or Plasma results) System BilirubinUrine NEGATIVE Normal (applies Bilirubin [facility] to non-numeric Urine Health results) System Urobilinogen 0.2 mg/dL Normal (applies Urobilinogen [facility] [Mass/volume] in to non-numeric UA Health Urine results) System Ketones NEGATIVE Normal (applies Ketones UA [facility] [Mass/volume] in to non-numeric Health Urine results) System Nitrate+Nitrite NEGATIVE Normal (applies Nitrite [facility] [Mass/volume] in to non-numeric Health Unspecified results) System specimen Leukocyte NEGATIVE Normal (applies Leukocyte [facility] esterase to non-numeric Esterase Health [Units/volume] results) Concentration System in Urine UrineBlood NEGATIVE Normal (applies Urine Blood [facility] to non-numeric Health results) System ID Date Data Source [id number] 03/04/2020 02:43:27 AM EDT [facility] System Name Value Range Interpretation Description Data Sup porting Code Source(s) Document(s ) Human SEE TEXT NOT Normal (applies HIV 1 [facility] immunodeficien DETECTEDWe are to non-numeric Genotype Healt h cy virus unable to results) System antibody titer obtain a measurement Genotype from (procedure) thissample. The most common reasons for failureto genotype are insufficient viral load,mutations in the viral genome at the assaypriming sites, and presence of inhibitorysubst ance in the sample. Please correlatethis result with any recent viral load forthis patient and resubmit if clinicallywarra nted. A minimum viral load of 400copies/mL is required for testing.HIV Subtype: NOT DETERMINED Antire troviral drugs Resistance Mutations DetectedPredict ed _! !NRTIs ! !ZDV (zidovudine or Retrovir) !N/A!ABC (abacavir or Ziagen) !N/A!ddI (didanosine or Videx) !N/A!3TC (lamivudine or Epivir) !N/A!FTC (emtricitabine or Emtriva) !N/A!d4T (stavudine or Zerit) !N/A!TDF (tenofovir or Viread) !N/A! !___!___ ____! !NNRTIs ! !ETR (etravirine or Intelence) !N/A!EFV (efavirenz or Sustiva) !N/A!NVP (nevirapine or Viramune) !N/A!RPV (rilpivirine or Edurant) !N/A!SAMANTHA (doravirine or Pifeltro) !N/A! !___!___ ____! !PIs ! !FPV (fos-amprenavir or Lexiva) !N/A!IDV (indinavir or Crixivan) !N/A!NFV (nelfinavir or Viracept) !N/A!SQV (saquinavir or Invirase) !N/A!LPV (lopinavir or Kaletra) !N/A!ATV (atazanavir or Reyataz) !N/A!TPV (tipranavir or Aptivus) !N/A!DRV (darunavir or Prezista) !N/A!! ! ___!___! PRB = PROBABLE OR EMERGING RESISTANCEOTHER MUTATIONS DETECTED:RT GENE MUTATIONS: N/APR GENE MUTATIONS: N/A __[facility] Jun 2018 Interpretation AlgorithmThe method used in this test is RT-PCR and sequencing of the HIV-1 polymerase gene.The phrases "resistance predicted" and "probable or emerging resistance" refer to the application of the interpretive rules. The FDA has not reviewedall of the interpretive rules used by the laboratory to predict drug resistance. FDA may not currently recognize some of the HIV gene mutations reported as predictive of drug resistance, but the laboratory considers these mutations to be associated with resistance to anti-viral drugs based on current clinical or scientific studies. The test has been validated pursuant to CLIA regulations and is not considered investigational or for research use only.Treatment decisions should be made in consideration of all relevant clinical and laboratory findings and theprescribing information for the drugs.This test was developed and its analytical performance characteristics have been determined by [facility]. It has not beencleared or approved by FDA. This assay has beenvalidated pursuant to the CLIA regulations and isused for clinical purposes.This test was performed at: [facility], [id number] [place], [place] [address]Ieok Performed at:[facility] [address] [place], [place] [address]BzDr. Nuno GOODRICH Date Data Source [id number] 03/04/2020 02:43:27 AM EDSophia grey System Name Value Range Interpretation Description Data Sup porting Code Source(s) Document(s ) Leukocytes 5.4 Normal (applies WBC Count [facility] [#/volume] in {10^3_uL to non-numeric Health Unspecified } results) System specimen by Automated count Erythrocytes 5.61 Normal (applies RBC Count [facility] [#/volume] in {10^6_uL to non-numeric Health Blood by } results) System Automated count Hemoglobin 16.1 Normal (applies Hemoglobin [facility] [Mass/volume] in {gm/dL} to non-numeric Health Blood results) System Hematocrit 48.5 % Normal (applies Hematocrit [facility] [Volume to non-numeric Health Fraction] of results) System Blood Erythrocyte mean 86.5 fl Normal (applies MCV [facility] corpuscular to non-numeric Health volume [Entitic results) System volume] by Automated count Erythrocyte mean 28.7 pg Normal (applies MCH [facility] corpuscular to non-numeric Health hemoglobin results) System [Entitic mass] by Automated count Erythrocyte mean 33.2 Normal (applies MCHC [facility] corpuscular {gm/dL} to non-numeric Health hemoglobin results) System concentration [Mass/volume] by Automated count Erythrocyte 12.2 % Normal (applies RDW-CV [facility] distribution to non-numeric Health width [Entitic results) System volume] by Automated count Platelets 226 Normal (applies Platelet Count [facility] [#/volume] in {10^3_uL to non-numeric Health Plasma by } results) System Automated count Platelet mean 11.2 fl Above high MPV [facility] volume [Entitic normal Health volume] in Blood System by Automated count Monocytes 0.7 Normal (applies Monocyte # [facility] [#/volume] in {10^3_uL to non-numeric Health Blood by Manual } results) System count Eosinophils 0.17 Normal (applies Eosinophil # [facility] [#/volume] in {10^3_uL to non-numeric Health Blood } results) System Neutrophils 3.1 Normal (applies Neutrophil # [facility] [#/volume] in {10^3_uL to non-numeric Health Body fluid } results) System Basophils 0.02 Normal (applies Basophil # [facility] [#/volume] in {10^3_uL to non-numeric Health Blood by } results) System Automated count Lymphocyte 1.3 Normal (applies Lymphocyte # [facility] percent {10^3_uL to non-numeric Health differential } results) System count (procedure) Neutrophils/100 57.6 % Normal (applies Neutrophil % Calderon patience leukocytes in to non-numeric Health Blood by results) System Automated count Monocytes/100 13.5 % Normal (applies Monocyte % [facility] leukocytes in to non-numeric Health Blood results) System Eosinophils/100 3.1 % Normal (applies Eosinophil % Calderon patience leukocytes in to non-numeric Health Unspecified results) System specimen Basophils/100 0.4 % Normal (applies Basophil % [facility] leukocytes in to non-numeric Health Unspecified results) System specimen by Manual count Lymphocytes 24.8 % Normal (applies Lymphocyte % [facility] [#/volume] in to non-numeric Health Blood by results) System Automated count ImmatureGranuloc 0.6 % Normal (applies Immature [facility] ytes% to non-numeric Granulocytes % Health results) System Nucleated 0.0 Normal (applies NRBC % [facility] erythrocytes {/100_WB to non-numeric Health [#/volume] in C} results) System Body fluid ImmatureGranuloc 0.03 Normal (applies Immature [facility] ytes# {10^3_uL to non-numeric Granulocytes # Health } results) System NRBC# 0.00 Below low normal NRBC # [facility] {10^3_uL Health } System ID Date Data Source [id number] 03/04/2020 02:43:27 AM EDT [facility] Name Value Range Interpretation Description Data Sup porting Code Source(s) Document(s ) HepatitisCRati 0.00 {Ratio} Normal (applies Hepatitis C [facility] o to non-numeric Ratio Health results) System HepatitisCVira Non Normal (applies Hepatitis C [facility] lAntibody ReactiveReferen to non-numeric Viral Health ce Range: Non results) Antibody System ReactiveFor additional information, please refer [email or web address] [email or web address](This link is being provided for informational/e ducationalpurpo ses only.)Test Performed at:[facility], [place], [place] [address]SicolbqbAndres Leon M.D. ID Date Data Source [id number] 03/04/2020 02:43:27 AM EDT [facility] alth System Name Value Range Interpretation Description Data Source(s ) Supporting Code Document(s ) Hepatiti 38 Normal (applies to Hepatitis B [facility] sBSurfac {mIU/mL} non-numeric [facility] eAntibod results) Antibody. y. Patient has immunity to hepatitis B viru s.For additional information, please refer [email or web address]/ [email or web address](This link is being provided for informational/educational purposes only) .Test Performed at:[email or web address], [place] [address]Zhane Leon M.D. ID Date Data Source [id number] 03/04/2020 02:43:27 AM EDT [facility] alth System Name Value Range Interpretation Description Data Sup porting Code Source(s) Document(s ) Hepati Non Normal (applies Hepatitis B [facility] tisBCo ReactiveReference to non-numeric [facility] reAnti Range: Non results) Antibody, System body,T ReactiveTest Total otal Performed at:[email or web address], [place], [place] Maxine Leon M.D. NONREACTIVE = Anti-HBc antibodies were not detected in the sample; it is possible that the patient is not infected with HBV.EQUIVOCAL = Antibodies to anti-HBc may or may not be present; another specimen should be obtained from the patient for further testing.REACTIVE = Presumptive evidence of HBV; anti-HBc antibodies were detected in the sample which suggests either on-going or previous HBV infection. ID Date Data Source [id number] 03/04/2020 02:43:27 AM EDT [facility] alth System Name Value Range Interpretation Description Data Sup porting Code Source(s) Document(s ) HepatitisBSurf Non Normal (applies Hepatitis B [facility] aceAntigen. ReactiveReferen to non-numeric [facility] ce Range: Non results) Antigen. System ReactiveTest Performed at:[email or web address] [employer], [place], [place] Maxine Leon M.D. HepatitisBSurf DNRTest Normal (applies Hepatitis B [facility] aceAntigenNeut Performed to non-numeric [facility] at:[facility]) [facility], [place], [place] [address]Andres Leon M.D. ID Date Data Source [id number] 03/04/2020 02:43:27 AM EDT Jeanie Garcia alth System Name Value Range Interpretation Description Data Sup porting Code Source(s) Document(s ) Triglyceride 150 Normal (applies Triglycerides, [facility] [Mass/volume] mg/dl to non-numeric Serum Health in Serum or results) System Plasma Optimal = < 100 mg/dLBoderline High = 15 0 - 199 mg/dLHigh = 200 - 499 mg/dLVery High = > 500 mg/dL Cholesterol 190 mg/dl Normal (applies Cholesterol, Serum [facility] [Mass/volume] in to non-numeric Health S yste Serum or Plasma results) <200 mg/dL = [id number] - 239 md/dL = Borderline>240 mg/dL = High Risk Cholesterol in HDL 34.0 mg/dL Normal (applies HDL Cholestero l, [facility] [Mass/volume] in to non-numeric Serum Health S yste Serum or Plasma results) Cholesterol in LDL 126 mg/dL Normal (applies Low Density [facility] [Mass/volume] in to non-numeric Lipoprotein, Healt h System Serum or Plasma results) Calculated OPTIMAL: LESS THAN 100 mg/dLNEAR OPTIMAL : 100 - 129 mg/dLBODERLINE HIGH: 130 - 150 mg/dL Cholesterol in VLDL 30 Normal (applies to VLDL, Serum [facility] [Mass/volume] in Serum non-numeric results) System or Plasma CHDRisk 5.59 Above high normal [facility] ID Date Data Source [id number] 03/04/2020 02:43:27 AM EDT Jeanie Garcia alth System Name Value Range Interpretation Description Data Sup porting Code Source(s) Document(s ) Sodium 140 Normal (applies Sodium, Serum [facility] [Moles/volume] in mmol/L to non-numeric Health Serum or Plasma results) System Potassium 3.4 Below low normal Potassium, [facility] [Mass/volume] in mmol/L Serum Health Serum or Plasma System Chloride 101 Normal (applies Chloride, [facility] [Moles/volume] in mmol/L to non-numeric Serum Health Serum or Plasma results) System Carbon dioxide, 27.0 Normal (applies CO2, Serum [facility] total mmol/L to non-numeric Health [Moles/volume] in results) System Serum or Plasma TotalProtein 7.9 Normal (applies Total Protein [facility] mg/dl to non-numeric Health results) System Glucose 94 Normal (applies Glucose, [facility] [Mass/volume] in mg/dL to non-numeric Serum Health Serum or Plasma results) System Urea nitrogen 9 mg/dl Normal (applies Blood Urea [facility] [Mass/volume] in to non-numeric Nitrogen, Health Serum or Plasma results) Serum System Creatinine 0.90 Normal (applies Creatinine, [facility] [Mass/volume] in mg/dl to non-numeric Serum Health Serum or Plasma results) System Alkaline 91 Normal (applies Alkaline [facility] phosphatase {IU/L} to non-numeric Phosphatase, Health isoenzymes results) Serum System [Enzymatic activity/volume] in Serum or Plasma by Heat stability Bilirubin direct 0.7 Normal (applies Bilirubin, [facility] and total panel mg/dl to non-numeric Serum Total Health [Mass/volume] - results) System Serum or Plasma DirectBilirubin 0.2 Normal (applies Direct [facility] mg/dl to non-numeric Bilirubin Health results) System Aspartate 23 Normal (applies Aspartate [facility] aminotransferase {IU/L} to non-numeric Transaminase, Heal th [Enzymatic results) Serum System activity/volume] in Serum or Plasma by With P-5'-P Albumin 5.0 Normal (applies Albumin, [facility] [Mass/volume] in {gm/dl} to non-numeric Serum Health Serum or Plasma results) System I.Phosphorus 4.0 Normal (applies I. Phosphorus [facility] mg/dl to non-numeric Health results) System Alanine 32 Normal (applies Alanine [facility] aminotransferase {IU/L} to non-numeric Aminotransfer Heal th [Enzymatic results) ase, Serum System activity/volume] in Serum or Plasma Calcium 9.8 Normal (applies Calcium, [facility] [Mass/volume] in mg/dl to non-numeric Total Serum Health Serum or Plasma results) System A/GRatio 1.72 Normal (applies A/G Ratio [facility] to non-numeric Health results) System Urate 6.8 Normal (applies Uric Acid, [facility] [Mass/volume] in mg/dl to non-numeric Serum Health Serum or Plasma results) System Anion gap in Serum 12.00 Normal (applies Anion Gap Calderon patience or Plasma mmol/L to non-numeric Health results) System Glomerular > 90 Normal (applies GFR [facility] filtration to non-numeric Health rate/1.73 sq results) System M.predicted [Volume Rate/Area] in Serum or Plasma by Creatinine-based formula (CKD-EPI) eGFR will provide clinicians with a more accurate indicator of renal function then the serum creatinine. The eGFR is automa tically calculated from an empiric formula (endorsed by the National Kidney Foundat ion) which incorporates age, sex, and race.Clinicians may notice surprisingly low GFR's with serum creatinine valueswithin normal range- particularly in elderly wo men (with low muscle mass).In the hospital setting, the eGFR should add an element of safety in drug dosing, in assessing the risk of IV contrast administration, and in assessing vascular risk.The NKF staging system is as follows:Normal: eGFR >90 with no kidney markersStage 1: eGFR >90 with kidney markers*Stage 2: eGFR 60- 89Stage 3: eGFR 30-59Stage 4: eGFR 15-29Stage 5: eGFR <15 (usually requir ing dialysis)*Markers include: Proteinuria, Hematuria, abnormal imaging-studies, or other blood or urine test abnormalities ID Date Data Source [id number] 03/04/2020 02:43:27 AM EDT [facility] System Name Value Range Interpretation Description Data Sup porting Code Source(s) Document(s ) T-HelperCD 37 Normal (applies T-[place] CD4+ [facility] 4+ to non-numeric Health System results) Message DNRTest Normal (applies Message [facility] Performed to non-numeric Health System at:[facility]) [facility], [place], [place] [address]Bimal Leon M.D. LymphRel.C 1661 Normal (applies Lymph Rel. [facility] ount to non-numeric Count [facility] results) HelperCD4+ 617 Normal (applies [place] CD4+ [facility] to non-numeric [facility] results) ID Date Data Source [id number] 03/04/2020 02:43:27 AM EDT [facility] Name Value Range Interpretation Description Data Sup porting Code Source(s) Document(s ) Leukocytes 7.4 Normal (applies WBC Count [facility] [#/volume] in {10^3_uL to non-numeric Health Unspecified } results) System specimen by Automated count Erythrocytes 5.25 Normal (applies RBC Count [facility] [#/volume] in {10^6_uL to non-numeric Health Blood by } results) System Automated count Hemoglobin 14.9 Normal (applies Hemoglobin [facility] [Mass/volume] in {gm/dL} to non-numeric Health Blood results) System Hematocrit 43.7 % Normal (applies Hematocrit [facility] [Volume to non-numeric Health Fraction] of results) System Blood Erythrocyte mean 83.2 fl Normal (applies MCV [facility] corpuscular to non-numeric Health volume [Entitic results) System volume] by Automated count Erythrocyte mean 28.4 pg Normal (applies MCH [facility] corpuscular to non-numeric Health hemoglobin results) System [Entitic mass] by Automated count Erythrocyte mean 34.1 Normal (applies MCHC [facility] corpuscular {gm/dL} to non-numeric Health hemoglobin results) System concentration [Mass/volume] by Automated count Erythrocyte 12.6 % Normal (applies RDW-CV [facility] distribution to non-numeric Health width [Entitic results) System volume] by Automated count Platelets 200 Normal (applies Platelet Count [facility] [#/volume] in {10^3_uL to non-numeric Health Plasma by } results) System Automated count Platelet mean 10.7 fl Normal (applies MPV [facility] volume [Entitic to non-numeric Health volume] in Blood results) System by Automated count Nucleated 0.0 Normal (applies NRBC % [facility] erythrocytes {/100_WB to non-numeric Health [#/volume] in C} results) System Body fluid NRBC# 0.00 Normal (applies NRBC # [facility] {10^3_uL to non-numeric Health } results) System Neutrophils/100 71.3 % Normal (applies Neutrophil % [place] patience leukocytes in to non-numeric Health Blood by results) System Automated count Neutrophils 5.3 Normal (applies Neutrophil # [facility] [#/volume] in {10^3_uL to non-numeric Health Body fluid } results) System Lymphocytes 15.8 % Normal (applies Lymphocyte % [facility] [#/volume] in to non-numeric Health Blood by results) System Automated count Lymphocyte 1.2 Normal (applies Lymphocyte # [facility] percent {10^3_uL to non-numeric Health differential } results) System count (procedure) Monocytes/100 10.9 % Above high Monocyte % [facility] leukocytes in normal Health Blood System Monocytes 0.8 Normal (applies Monocyte # [facility] [#/volume] in {10^3_uL to non-numeric Health Blood by Manual } results) System count Eosinophils/100 1.2 % Normal (applies Eosinophil % [place] patience leukocytes in to non-numeric Health Unspecified results) System specimen Eosinophils 0.09 Normal (applies Eosinophil # [facility] [#/volume] in {10^3_uL to non-numeric Health Blood } results) System Basophils/100 0.4 % Normal (applies Basophil % [facility] leukocytes in to non-numeric Health Unspecified results) System specimen by Manual count Basophils 0.03 Normal (applies Basophil # [facility] [#/volume] in {10^3_uL to non-numeric Health Blood by } results) System Automated count ImmatureGranuloc 0.03 Normal (applies Immature [facility] ytes# {10^3_uL to non-numeric Granulocytes # Health } results) System ImmatureGranuloc 0.4 % Normal (applies Immature [facility] ytes% to non-numeric Granulocytes % Health results) System ID Date Data Source [id number] 03/04/2020 02:43:27 AM EDT [facility] Name Value Range Interpretation Description Data Sup porting Code Source(s) Document(s ) TroponinIQuantitative 0.00 Normal (applies Troponin I [facility] ng/ml to non-numeric Quantitative Health results) System Detection of a rise and/or fall of cardi ac troponin I above the cut-off of 0.03 ng/mL is consistent with myocardial infarction in the appropriate clinical setting. With the use of lower cut-offs, testing of se rial samples is required for diagnosis. ID Date Data Source [id number] 03/04/2020 02:43:27 AM EDT [facility] Name Value Range Interpretation Description Data Sup porting Code Source(s) Document(s ) Creatine 153 Normal (applies Creatine [facility] kinase.MB {IU/L} to non-numeric Kinase, Serum Health Syst em [Mass/volume results) ] in Serum or Plasma ID Date Data Source [id number] 03/04/2020 02:43:27 AM DENAE grey System Name Value Range Interpretation Description Data Sup porting Code Source(s) Document(s ) Sodium 134 Below low normal Sodium, Serum [facility] [Moles/volume] in mmol/L Health Serum or Plasma System Potassium 3.7 Normal (applies Potassium, [facility] [Mass/volume] in mmol/L to non-numeric Serum Health Serum or Plasma results) System Chloride 100 Below low normal Chloride, [facility] [Moles/volume] in mmol/L Serum Health Serum or Plasma System Carbon dioxide, 26.4 Normal (applies CO2, Serum [facility] total mmol/L to non-numeric Health [Moles/volume] in results) System Serum or Plasma TotalProtein 7.3 Normal (applies Total Protein [facility] mg/dl to non-numeric Health results) System Glucose 102 Normal (applies Glucose, [facility] [Mass/volume] in mg/dL to non-numeric Serum Health Serum or Plasma results) System Urea nitrogen 12 Normal (applies Blood Urea [facility] [Mass/volume] in mg/dl to non-numeric Nitrogen, Health Serum or Plasma results) Serum System Creatinine 0.73 Normal (applies Creatinine, [facility] [Mass/volume] in mg/dl to non-numeric Serum Health Serum or Plasma results) System Alkaline 67 Normal (applies Alkaline [facility] phosphatase {IU/L} to non-numeric Phosphatase, [facility] isoenzymes results) Serum System [Enzymatic activity/volume] in Serum or Plasma by Heat stability Bilirubin.total 0.4 Normal (applies Bilirubin, [facility] [Mass/volume] in mg/dl to non-numeric Serum Total Health Serum or Plasma results) System DirectBilirubin 0.1 Normal (applies Direct [facility] mg/dl to non-numeric Bilirubin Health results) System Aspartate 32 Normal (applies Aspartate [facility] aminotransferase {IU/L} to non-numeric Transaminase, Heal th [Enzymatic results) Serum System activity/volume] in Serum or Plasma by With P-5'-P Albumin 4.6 Normal (applies Albumin, [facility] [Mass/volume] in {gm/dl} to non-numeric Serum Health Serum or Plasma results) System I.Phosphorus 3.4 Normal (applies I. Phosphorus [facility] mg/dl to non-numeric Health results) System Alanine 41 Normal (applies Alanine [facility] aminotransferase {IU/L} to non-numeric Aminotransfer Heal th [Enzymatic results) ase, Serum System activity/volume] in Serum or Plasma Calcium 9.3 Normal (applies Calcium, [facility] [Mass/volume] in mg/dl to non-numeric Total Serum Health Serum or Plasma results) System A/GRatio 1.70 Normal (applies A/G Ratio [facility] to non-numeric Health results) System Urate 7.1 Normal (applies Uric Acid, [facility] [Mass/volume] in mg/dl to non-numeric Serum Health Serum or Plasma results) System Anion gap in Serum 7.60 Normal (applies Anion Gap Calder[place] patience or Plasma mmol/L to non-numeric Health results) System Glomerular > 90 Normal (applies GFR [facility] filtration to non-numeric Health rate/1.73 sq results) System M.predicted [Volume Rate/Area] in Serum or Plasma by Creatinine-based formula (CKD-EPI) eGFR will provide clinicians with a more accurate indicator of renal function then the serum creatinine. The eGFR is automa tically calculated from an empiric formula (endorsed by the National Kidney [employer] ion) which incorporates age, sex, and race.Clinicians may notice surprisingly low GFR's with serum creatinine valueswithin normal range- particularly in elderly wo men (with low muscle mass).In the hospital setting, the eGFR should add an element of safety in drug dosing, in assessing the risk of IV contrast administration, and in assessing vascular risk.The NKF staging system is as follows:Normal: eGFR >90 with no kidney markersStage 1: eGFR >90 with kidney markers*Stage 2: eGFR 60- 89Stage 3: eGFR 30-59Stage 4: eGFR 15-29Stage 5: eGFR <15 (usually requir ing dialysis)*Markers include: Proteinuria, Hematuria, abnormal imaging-studies, or other blood or urine test abnormalities ID Date Data Source [id number] 04/30/2013 11:37:00 AM EST [facility] Name Value Range Interpretation Description Data Sup porting Code Source(s) Document(s ) FTA,Ser ReactiveReference Abnormal FTA, Serum [facility] um Range: Nonreactive (applies to Health Test Performed at: non-numeric System [facility] results) [facility], [place] [address] Kelli Murdock M.D. Result Reporting|Telephone |Cal| 3 at 10:20 AMCalled to: Johnna Name: Nuzhat by: [email or web address]/14/2013 / 10:19 AM ID Date Data Source [id number] 04/30/2013 11:37:00 AM EST [facility] Name Value Range Interpretation Description Data Sup porting Code Source(s) Document(s ) TotalB-CD1 15 {Percent} Normal (applies Total B-CD19 [facility] 9 to non-numeric Health System results) TotalT-CD3 68 {Percent} Normal (applies Total T-CD3 [facility] to non-numeric [facility] results) T-HelperCD 45 {Percent} Normal (applies T-[place] CD4+ [facility] 4+ to non-numeric Health System results) TSuppresso 23 {Percent} Normal (applies T Suppressor [facility] rCD8+ to non-numeric CD8+ Health System results) [place]/Sup 1.99 {Ratio} Normal (applies [place]/Suppres Calderon patience pressor to non-numeric sor Health System results) Message DNR Test Normal (applies Message [facility] Performed to non-numeric Health System at: [facility] - results) [facility], [place] [address] Kelli Murdock M.D. LymphRel.C 1362 Normal (applies Lymph Rel. [facility] ount {Cells/mcL} to non-numeric Count Health System results) CD19 198 Normal (applies CD19 [facility] {Cells/mcL} to non-numeric Health System results) CD3 956 Normal (applies CD3 [facility] {Cells/mcL} to non-numeric Health System results) HelperCD4+ 647 Normal (applies [place] CD4+ [facility] {Cells/mcL} to non-numeric Health System results) SuppressCD 324 Normal (applies Suppress CD8+ [facility] 8+ {Cells/mcL} to non-numeric Health System results) ID Date Data Source [id number] 04/30/2013 11:37:00 AM EST [facility] Name Value Range Interpretation Description Data Source(s ) Supporting Code Document(s ) Reagin Ab 1:64 Normal (applies to Titer-RPR [facility] [Titer] in non-numeric Health System Serum by results) RPR Reagin Ab Reactive Abnormal (applies RPR/VDRL. [facility] [Presence] to non-numeric Health System in Serum by results) RPR ID Date Data Source [id number] 04/30/2013 11:37:00 AM EST [facility] Name Value Range Interpretation Description Data Sup porting Code Source(s) Document(s ) Leukocytes 6.6 Normal (applies WBC Count [facility] [#/volume] in {10\\S\\3_ to non-numeric Health Unspecified uL} results) System specimen by Automated count Erythrocytes 4.82 Normal (applies RBC Count [facility] [#/volume] in {10\\S\\6_ to non-numeric Health Blood by uL} results) System Automated count Hemoglobin 14.1 Normal (applies Hemoglobin, [facility] [Mass/volume] in {gm/dL} to non-numeric Whole Blood Health Blood results) System Hematocrit 42.0 % Normal (applies Hematocrit, [facility] [Volume to non-numeric Whole Blood Health Fraction] of results) System Blood Erythrocyte mean 87.1 fl Normal (applies MCV [facility] corpuscular to non-numeric Health volume [Entitic results) System volume] by Automated count Erythrocyte mean 29.3 pg Normal (applies MCH [facility] corpuscular to non-numeric Health hemoglobin results) System [Entitic mass] by Automated count Erythrocyte mean 33.6 Normal (applies MCHC [facility] corpuscular {gm/dL} to non-numeric Health hemoglobin results) System concentration [Mass/volume] by Automated count Erythrocyte 13.6 % Normal (applies RDW [facility] distribution to non-numeric Health width [Entitic results) System volume] by Automated count Platelets 220 Normal (applies Platelet [facility] [#/volume] in {10\\S\\3_ to non-numeric Count Health Plasma by uL} results) System Automated count Platelet mean 11.0 fl Above high normal MPV [facility] volume [Entitic Health volume] in Blood System by Automated count Monocytes 0.8 Normal (applies Monocyte [facility] [#/volume] in {10\\S\\3_ to non-numeric Count Health Blood by Manual uL} results) System count Eosinophils 0.2 Normal (applies Eosinophil [facility] [#/volume] in {10\\S\\3_ to non-numeric Count Blood Health Blood uL} results) System Basophils 0.1 Normal (applies Basophil [facility] [#/volume] in {10\\S\\3_ to non-numeric Count Health Blood by uL} results) System Automated count Neutrophils 3.9 Normal (applies Absolute [facility] [#/volume] in {10\\S\\3_ to non-numeric Neutrophil Health Body fluid uL} results) Count System Lymphocyte 1.6 Normal (applies Lymphocyte [facility] percent {10\\S\\3_ to non-numeric Absolute Health differential uL} results) System count (procedure) Neutrophils/100 59.9 % Normal (applies Neutrophil % [place] patience leukocytes in to non-numeric Health Blood by results) System Automated count Monocytes/100 12.3 % Above high normal Monocyte % [facility] leukocytes in Health Blood System Eosinophils/100 3.4 % Above high normal Eosinophil % [facility] leukocytes in Health Unspecified System specimen Basophils/100 0.8 % Normal (applies Basophil % [facility] leukocytes in to non-numeric Health Unspecified results) System specimen by Manual count Lymphocytes 23.6 % Normal (applies Lymphocyte % [facility] [#/volume] in to non-numeric Health Blood by results) System Automated count ID Date Data Source [id number] 04/30/2013 11:37:00 AM EST [facility] Name Value Range Interpretation Description Data Sup porting Code Source(s) Document(s ) Sodium 138 mmol/L Normal (applies Sodium, [facility] [Moles/volume] to non-numeric Serum Health in Serum or results) System Plasma Potassium 3.6 mmol/L Normal (applies Potassium, [facility] [Mass/volume] to non-numeric Serum Health in Serum or results) System Plasma Chloride 102 mmol/L Normal (applies Chloride, [facility] [Moles/volume] to non-numeric Serum Health in Serum or results) System Plasma Carbon dioxide, 28.0 mmol/L Normal (applies CO2, Serum [place] patience total to non-numeric Health [Moles/volume] results) System in Serum or Plasma TotalProtein 7.2 mg/dl Normal (applies Total [facility] to non-numeric Protein Health results) System Glucose 82 mg/dL Normal (applies Glucose, [facility] [Mass/volume] to non-numeric Serum Health in Serum or results) System Plasma Urea nitrogen 11 mg/dl Normal (applies Blood Urea [facility] [Mass/volume] to non-numeric Nitrogen, Health in Serum or results) Serum System Plasma Creatinine 0.80 mg/dl Normal (applies Creatinine, [facility] [Mass/volume] to non-numeric Serum Health in Serum or results) System Plasma Alkaline 82 {IU/L} Normal (applies Alkaline [facility] phosphatase to non-numeric Phosphatase, Health isoenzymes results) Serum System [Enzymatic activity/volume ] in Serum or Plasma by Heat stability Bilirubin.total 0.5 mg/dl Normal (applies Bilirubin, [facility] [Mass/volume] to non-numeric Serum Total Health in Serum or results) System Plasma Aspartate 97 {IU/L} Above high Aspartate [facility] aminotransferas normal Transaminase Health e [Enzymatic , Serum System activity/volume ] in Serum or Plasma by With P-5'-P Albumin 4.1 {gm/dl} Normal (applies Albumin, [facility] [Mass/volume] to non-numeric Serum Health in Serum or results) System Plasma I.Phosphorus 3.9 mg/dl Normal (applies I. [facility] to non-numeric Phosphorus Health results) System Alanine 101 {IU/L} Above high Alanine [facility] aminotransferas normal Aminotransfe Health e [Enzymatic rase, Serum System activity/volume ] in Serum or Plasma Calcium 9.5 mg/dl Normal (applies Calcium, [facility] [Mass/volume] to non-numeric Total Serum Health in Serum or results) System Plasma A/GRatio 1.32 Normal (applies A/G Ratio [facility] to non-numeric Health results) System Urate 5.0 mg/dl Normal (applies Uric Acid, [facility] [Mass/volume] to non-numeric Serum Health in Serum or results) System Plasma Anion gap in 8.00 mmol/L Normal (applies Anion Gap [facility] Serum or Plasma to non-numeric Health results) System Glomerular Greater than Normal (applies GFR [facility] filtration 90 eGFR will to non-numeric Health rate/1.73 sq provide results) System M.predicted clinicians [Volume with a more Rate/Area] in accurate Serum or Plasma indicator of by renal function Creatinine-base then the serum d formula creatinine. (CKD-EPI) The eGFR is automatically calculated from an empiric formula (endorsed by the [employer] Kid[employer]) which incorporates age, sex, and race.Clinician s may notice surprisingly low GFR's with serum creatinine valueswithin normal range- particularly in elderly women (with low muscle mass).In the hospital setting, the eGFR should add an element of safety in drug dosing, in assessing the risk of IV contrast administration , and in assessing vascular risk.The NKF staging system is as follows:Normal : eGFR >90 with no kidney markersStage 1: eGFR >90 with kidney markers*Stage 2: eGFR 60-89Stage 3: eGFR 30-59Stage 4: eGFR 15-29Stage 5: eGFR <15 (usually requiring dialysis)*Rolando ers include: Proteinuria, Hematuria, abnormal imaging-studie s, or other blood or urine test abnormalities ID Date Data Source [id number] 04/30/2013 11:37:00 AM EST [facility] Name Value Range Interpretation Description Data Sup porting Code Source(s) Document(s ) Creatine 1581 Above high normal Creatine [facility] kinase.MB {IU/L} Kinase, Serum Health System [Mass/volume ] in Serum or Plasma ID Date Data Source [id number] 05/07/2013 10:49:00 AM EST [facility] Name Value Range Interpretation Description Data Sup porting Code Source(s) Document(s ) FTA,Ser ReactiveReference Abnormal FTA, Serum [facility] um Range: Nonreactive (applies to Health Test Performed at: non-numeric System [facility] results) [place] [address] Kelli Murdock M.D. Result Reporting|Telephone |Marianela| 3 at 10:09 AMCalled to:MarianelaKatlin Name: JessicaforReadback by: [email or web address]/26/2013 / 10:08 AMResult Reporting|Telephone |Marianela| 3 at 10:09 AMCalled to: Ander Name: JessicaforReadback by: [email or web address]/26/2013 10:09 AM ID Date Data Source [id number] 05/07/2013 10:49:00 AM EST [facility] Name Value Range Interpretation Description Data Source(s ) Supporting Code Document(s ) Reagin Ab 1:64 Normal (applies to Titer-RPR [facility] [Titer] in non-numeric Health System Serum by results) RPR Reagin Ab Reactive Abnormal (applies RPR/VDRL. [facility] [Presence] to non-numeric Health System in Serum by results) RPR ID Date Data Source [id number] 05/07/2013 10:49:00 AM EST [facility] Name Value Range Interpretation Description Data Sup porting Code Source(s) Document(s ) Creatine 1251 Above high normal Creatine [facility] kinase.MB {IU/L} Kinase, Serum Health System [Mass/volume ] in Serum or Plasma ok ID Date Data Source [id number] 08/15/2013 11:22:00 AM EST [facility] Name Value Range Interpretation Code Description Data Lexy rce(s) Supporting Document(s ) FTA,Serum REACTIVE Normal (applies to FTA, Serum [facility] non-numeric Health System results) ID Date Data Source [id number] 08/15/2013 11:22:00 AM EST [facility] Name Value Range Interpretation Description Data Sup porting Code Source(s) Document(s ) TotalB-CD1 7 {Percent} Normal (applies Total B-CD19 [facility] 9 to non-numeric Health results) System TotalT-CD3 64 {Percent} Normal (applies Total T-CD3 [facility] to non-numeric Health results) System T-HelperCD 35 {Percent} Normal (applies T-[place] CD4+ [facility] 4+ to non-numeric Health results) System TSuppresso 29 {Percent} Normal (applies T Suppressor [facility] rCD8+ to non-numeric CD8+ Health results) System [place]/Sup 1.22 {Ratio} Normal (applies [place]/Suppres Calder[place] patience pressor to non-numeric sor Health results) System Message SEE NOTE Normal (applies Message [facility] Lymphocyte to non-numeric Health subset results) System results confirmed by repeat analysis. Test Performed at: [email or web address], [place] [address] Kelli Murdock M.D. LymphRel.C 715 Below low normal Lymph Rel. [facility] ount {Cells/mcL} Count Health System CD19 48 Below low normal CD19 [facility] {Cells/mcL} Health System CD3 458 Below low normal CD3 [facility] {Cells/mcL} Health System HelperCD4+ 250 Below low normal [place] CD4+ [facility] {Cells/mcL} Health System SuppressCD 205 Normal (applies Suppress CD8+ [facility] 8+ {Cells/mcL} to non-numeric Health results) System ID Date Data Source [id number] 08/15/2013 11:22:00 AM EST [facility] Name Value Range Interpretation Description Data Sup porting Code Source(s) Document(s ) C.Trac Not Normal (applies C. [facility] homati DetectedReference to non-numeric [facility] sAmp Range: Not Detected results) Amp System N.Gono Not Normal (applies N. Gonorrhea [facility] rrheab DetectedReference to non-numeric by [facility] Health yLCR Range: Not Detected results) System This test was performed using the APTIMA COMBO2(R) Assay (GENArviragoPROBE(R)). Test Performed at: [email or web address], [place] [address] Kelli Murdock M.D. ID Date Data Source [id number] 08/15/2013 11:22:00 AM EST [facility] Name Value Range Interpretation Code Description Data Lexy rce(s) Supporting Document(s ) Reagin Ab 1:4 Normal (applies to Titer-RPR [facility] [Titer] in non-numeric Health System Serum by results) RPR Result Reporting|Telephone|DR ARTHUR| 08/16/2013 at 11:58 AMCalled to:DR Markham Name:LISBETH early by:DR ARTHUR 08/16/2013 / 11:58 AM [facility]agin Ab [Presence] Reactive Abnormal (applies to RPR/VDRL . [facility] in Serum by RPR non-numeric results) Sys tem Result Reporting|Telephone|DR ARTHUR| 08/16/2013 at 11:58 AMCalled to:DR Markham Name:LISBETH early by:DR ARTHUR 08/16/2013 / 11:58 AM ID Date Data Source [id number] 08/15/2013 11:22:00 AM EST [facility] Name Value Range Interpretation Description Data Sup porting Code Source(s) Document(s ) Leukocytes 4.3 Below low normal WBC Count [facility] [#/volume] in {10^3_uL Health Unspecified } System specimen by Automated count Erythrocytes 4.76 Normal (applies RBC Count [facility] [#/volume] in {10^6_uL to non-numeric Health Blood by } results) System Automated count Hemoglobin 13.8 Below low normal Hemoglobin, [facility] [Mass/volume] in {gm/dL} Whole Blood Health Blood System Hematocrit 41.7 % Normal (applies Hematocrit, [facility] [Volume to non-numeric Whole Blood Health Fraction] of results) System Blood Erythrocyte mean 87.6 fl Normal (applies MCV [facility] corpuscular to non-numeric Health volume [Entitic results) System volume] by Automated count Erythrocyte mean 29.0 pg Normal (applies MCH [facility] corpuscular to non-numeric Health hemoglobin results) System [Entitic mass] by Automated count Erythrocyte mean 33.1 Normal (applies MCHC [facility] corpuscular {gm/dL} to non-numeric Health hemoglobin results) System concentration [Mass/volume] by Automated count Erythrocyte 13.1 % Normal (applies RDW [facility] distribution to non-numeric Health width [Entitic results) System volume] by Automated count Platelets 235 Normal (applies Platelet [facility] [#/volume] in {10^3_uL to non-numeric Count Health Plasma by } results) System Automated count Platelet mean 11.3 fl Above high normal MPV [facility] volume [Entitic Health volume] in Blood System by Automated count Monocytes 0.7 Normal (applies Monocyte [facility] [#/volume] in {10^3_uL to non-numeric Count Health Blood by Manual } results) System count Eosinophils 0.2 Normal (applies Eosinophil [facility] [#/volume] in {10^3_uL to non-numeric Count Blood Health Blood } results) System Basophils 0.0 Normal (applies Basophil [facility] [#/volume] in {10^3_uL to non-numeric Count Health Blood by } results) System Automated count Neutrophils 2.6 Normal (applies Absolute [facility] [#/volume] in {10^3_uL to non-numeric Neutrophil Health Body fluid } results) Count System Lymphocyte 0.8 Below low normal Lymphocyte [facility] percent {10^3_uL Absolute Health differential } System count (procedure) Neutrophils/100 60.9 % Normal (applies Neutrophil % Calder[place] patience leukocytes in to non-numeric Health Blood by results) System Automated count Monocytes/100 15.7 % Above high normal Monocyte % [facility] leukocytes in Health Blood System Eosinophils/100 4.9 % Above high normal Eosinophil % [facility] leukocytes in Health Unspecified System specimen Basophils/100 0.9 % Normal (applies Basophil % [facility] leukocytes in to non-numeric Health Unspecified results) System specimen by Manual count Lymphocytes 17.6 % Below low normal Lymphocyte % [facility] [#/volume] in Health Blood by System Automated count ID Date Data Source [id number] 08/15/2013 11:22:00 AM EST [facility] Name Value Range Interpretation Description Data Sup porting Code Source(s) Document(s ) Sodium 138 mmol/L Normal (applies Sodium, [facility] [Moles/volume] to non-numeric Serum Health in Serum or results) System Plasma Potassium 4.3 mmol/L Normal (applies Potassium, [facility] [Mass/volume] to non-numeric Serum Health in Serum or results) System Plasma Chloride 105 mmol/L Normal (applies Chloride, [facility] [Moles/volume] to non-numeric Serum Health in Serum or results) System Plasma Carbon dioxide, 27.0 mmol/L Normal (applies CO2, Serum [facility] patience total to non-numeric Health [Moles/volume] results) System in Serum or Plasma TotalProtein 8.3 mg/dl Above high Total [facility] normal Protein Health System Glucose 95 mg/dL Normal (applies Glucose, [facility] [Mass/volume] to non-numeric Serum Health in Serum or results) System Plasma Urea nitrogen 17 mg/dl Normal (applies Blood Urea [facility] [Mass/volume] to non-numeric Nitrogen, Health in Serum or results) Serum System Plasma Creatinine 0.90 mg/dl Normal (applies Creatinine, [facility] [Mass/volume] to non-numeric Serum Health in Serum or results) System Plasma Alkaline 77 {IU/L} Normal (applies Alkaline [facility] phosphatase to non-numeric Phosphatase, Health isoenzymes results) Serum System [Enzymatic activity/volume ] in Serum or Plasma by Heat stability Bilirubin.total 0.5 mg/dl Normal (applies Bilirubin, [facility] [Mass/volume] to non-numeric Serum Total Health in Serum or results) System Plasma Aspartate 115 {IU/L} Above high Aspartate [facility] aminotransferas normal Transaminase Health e [Enzymatic , Serum System activity/volume ] in Serum or Plasma by With P-5'-P Albumin 4.0 {gm/dl} Normal (applies Albumin, [facility] [Mass/volume] to non-numeric Serum Health in Serum or results) System Plasma I.Phosphorus 4.2 mg/dl Normal (applies I. [facility] to non-numeric Phosphorus Health results) System Alanine 80 {IU/L} Above high Alanine [facility] aminotransferas normal Aminotransfe Health e [Enzymatic rase, Serum System activity/volume ] in Serum or Plasma Calcium 9.2 mg/dl Normal (applies Calcium, [facility] [Mass/volume] to non-numeric Total Serum Health in Serum or results) System Plasma A/GRatio 0.93 Normal (applies A/G Ratio [facility] to non-numeric Health results) System Urate 5.7 mg/dl Normal (applies Uric Acid, [facility] [Mass/volume] to non-numeric Serum Health in Serum or results) System Plasma Anion gap in 6.00 mmol/L Below low Anion Gap [facility] Serum or Plasma normal Health System Glomerular Greater than Normal (applies GFR [facility] filtration 90 eGFR will to non-numeric Health rate/1.73 sq provide results) System M.predicted clinicians [Volume with a more Rate/Area] in accurate Serum or Plasma indicator of by renal function Creatinine-base then the serum d formula creatinine. (CKD-EPI) The eGFR is automatically calculated from an empiric formula (endorsed by the National Kidney Foundation) which incorporates age, sex, and race.Clinician s may notice surprisingly low GFR's with serum creatinine valueswithin normal range- particularly in elderly women (with low muscle mass).In the hospital setting, the eGFR should add an element of safety in drug dosing, in assessing the risk of IV contrast administration , and in assessing vascular risk.The NKF staging system is as follows:Normal : eGFR >90 with no kidney markersStage 1: eGFR >90 with kidney markers*Stage 2: eGFR 60-89Stage 3: eGFR 30-59Stage 4: eGFR 15-29Stage 5: eGFR <15 (usually requiring dialysis)*Rolando ers include: Proteinuria, Hematuria, abnormal imaging-studie s, or other blood or urine test abnormalities ID Date Data Source [id number] 08/15/2013 11:22:00 AM EST [facility] System Name Value Range Interpretation Description Data Sup porting Code Source(s) Document(s ) Creatine 2338 Above high normal Creatine [facility] kinase.MB {IU/L} Kinase, Serum Health System [Mass/volume ] in Serum or Plasma ID Date Data Source [id number] 12/27/2013 12:00:00 PM EDT [facility] Name Value Range Interpretation Description Data Source(s ) Supporting Code Document(s ) C-Reacti 0.6 mg/dL Normal (applies to C-Reactive [facility] veProtei non-numeric Protein Health System nQuantit results) Quantitative ative Please be advised that patients taking C arboxypenicillins may exhibit falsely decreased C-Reactive Protein levels due to an analytical interference in this assay. Test Performed at: [facility] [place] [address] Kelli Murdock M.D. ID Date Data Source [id number] 12/27/2013 12:00:00 PM EDT [facility] System Name Value Range Interpretation Description Data Sup porting Code Source(s) Document(s ) TotalB-CD1 9 {Percent} Normal (applies Total B-CD19 [facility] 9 to non-numeric Health System results) TotalT-CD3 68 {Percent} Normal (applies Total T-CD3 [facility] to non-numeric Health System results) T-HelperCD 34 {Percent} Normal (applies T-[place] CD4+ [facility] 4+ to non-numeric Health System results) TSuppresso 27 {Percent} Normal (applies T Suppressor [facility] rCD8+ to non-numeric CD8+ Health System results) [place]/Sup 1.29 {Ratio} Normal (applies [place]/Suppres [facility] patience pressor to non-numeric sor Health System results) Message DNR Test Normal (applies Message [facility] Performed to non-numeric Health System at: [facility] - results) [facility], [place] [address] Kelli Murdock M.D. LymphRel.C 616 Below low normal Lymph Rel. [facility] ount {Cells/mcL} Count Health System CD19 58 Below low normal CD19 [facility] {Cells/mcL} Health System CD3 413 Below low normal CD3 [facility] {Cells/mcL} Health System HelperCD4+ 205 Below low normal [place] CD4+ [facility] {Cells/mcL} Health System SuppressCD 160 Below low normal Suppress CD8+ [facility] 8+ {Cells/mcL} Health System ID Date Data Source [id number] 12/27/2013 12:00:00 PM EDT [facility] Name Value Range Interpretation Description Data Sup porting Code Source(s) Document(s ) HepatitisCRati 0.10 {Ratio} Normal (applies Hepatitis C [facility] o to non-numeric Ratio Health results) System HepatitisCAnti Non Normal (applies Hepatitis C [facility] body,Serum. ReactiveReferen to non-numeric Antibody, Health ce Range: Non results) Serum. System Reactive Test Performed at: [facility], [place] [address] Kelli Murdock M.D. ID Date Data Source [id number] 12/27/2013 12:00:00 PM EDT [facility] Name Value Range Interpretation Description Data Sup porting Code Source(s) Document(s ) Aldolase 124.1 U/L Above high normal Aldolase, [facility] [Enzymatic Serum Health System activity/vol ume] in Serum or Plasma Confirmed by repeat analysis. Test Perfo rmed at: [facility], [place] [address] Kelli rico M.D. ID Date Data Source [id number] 12/27/2013 12:00:00 PM EDT [facility] Name Value Range Interpretation Description Data Sup porting Code Source(s) Document(s ) Erythrocyte 18 Above high Sedimentation [facility] sedimentation {mmlhr} normal Rate, Health rate by 2H Erythrocyte System Westergren method ID Date Data Source [id number] 12/27/2013 12:00:00 PM EDT [facility] Name Value Range Interpretation Description Data Sup porting Code Source(s) Document(s ) Leukocytes 8.9 10 Normal (applies WBC Count [facility] [#/volume] in to non-numeric Health Unspecified results) System specimen by Automated count Erythrocytes 5.21 10 Normal (applies RBC Count [facility] [#/volume] in to non-numeric Health Blood by results) System Automated count Hemoglobin 14.7 Normal (applies Hemoglobin, [facility] [Mass/volume] in {gm/dL} to non-numeric Whole Blood Health Blood results) System Hematocrit 44.7 % Normal (applies Hematocrit, [facility] [Volume to non-numeric Whole Blood Health Fraction] of results) System Blood Erythrocyte mean 85.8 fl Normal (applies MCV [facility] corpuscular to non-numeric Health volume [Entitic results) System volume] by Automated count Erythrocyte mean 28.2 pg Normal (applies MCH [facility] corpuscular to non-numeric Health hemoglobin results) System [Entitic mass] by Automated count Erythrocyte mean 32.9 Below low normal MCHC [facility] corpuscular {gm/dL} Health hemoglobin System concentration [Mass/volume] by Automated count Erythrocyte 14.2 % Normal (applies RDW-CV [facility] distribution to non-numeric Health width [Entitic results) System volume] by Automated count Platelets 289 10 Normal (applies Platelet [facility] [#/volume] in to non-numeric Count Health Plasma by results) System Automated count Platelet mean 11.3 fl Above high normal MPV [facility] volume [Entitic Health volume] in Blood System by Automated count Monocytes 0.9 10 Above high normal Monocyte [facility] [#/volume] in Count Health Blood by Manual System count Eosinophils 0.0 10 Below low normal Eosinophil [facility] [#/volume] in Count Blood Health Blood System Neutrophils 7.2 10 Normal (applies Absolute [facility] [#/volume] in to non-numeric Neutrophil Health Body fluid results) Count System Basophils 0.0 10 Normal (applies Basophil [facility] [#/volume] in to non-numeric Count Health Blood by results) System Automated count Lymphocyte 0.7 10 Below low normal Lymphocyte [facility] percent Absolute Health differential System count (procedure) Neutrophils/100 81.3 % Normal (applies Neutrophil % Calder[place] patience leukocytes in to non-numeric Health Blood by results) System Automated count Monocytes/100 10.3 % Above high normal Monocyte % [facility] leukocytes in Health Blood System Eosinophils/100 0.2 % Below low normal Eosinophil % [facility] leukocytes in Health Unspecified System specimen Basophils/100 0.2 % Normal (applies Basophil % [facility] leukocytes in to non-numeric Health Unspecified results) System specimen by Manual count Lymphocytes 8.0 % Below low normal Lymphocyte % [facility] [#/volume] in Health Blood by System Automated count ID Date Data Source [id number] 12/27/2013 12:00:00 PM EDT [facility] que System Name Value Range Interpretation Description Data Sup porting Code Source(s) Document(s ) Sodium 140 mmol/L Normal (applies Sodium, [facility] [Moles/volume] to non-numeric Serum Health in Serum or results) System Plasma Potassium 4.6 mmol/L Normal (applies Potassium, [facility] [Mass/volume] to non-numeric Serum Health in Serum or results) System Plasma Chloride 102 mmol/L Normal (applies Chloride, [facility] [Moles/volume] to non-numeric Serum Health in Serum or results) System Plasma Carbon dioxide, 26.0 mmol/L Normal (applies CO2, Serum Calder[place] patience total to non-numeric Health [Moles/volume] results) System in Serum or Plasma TotalProtein 7.6 mg/dl Normal (applies Total [facility] to non-numeric Protein Health results) System Glucose 91 mg/dL Normal (applies Glucose, [facility] [Mass/volume] to non-numeric Serum Health in Serum or results) System Plasma Urea nitrogen 15 mg/dl Normal (applies Blood Urea [facility] [Mass/volume] to non-numeric Nitrogen, Health in Serum or results) Serum System Plasma Creatinine 0.70 mg/dl Below low Creatinine, [facility] [Mass/volume] normal Serum Health in Serum or System Plasma Alkaline 76 {IU/L} Normal (applies Alkaline [facility] phosphatase to non-numeric Phosphatase, Health isoenzymes results) Serum System [Enzymatic activity/volume ] in Serum or Plasma by Heat stability Bilirubin 0.4 mg/dl Normal (applies Bilirubin, [facility] direct and to non-numeric Serum Total Health total panel results) System [Mass/volume] - Serum or Plasma Aspartate 338 {IU/L} Above high Aspartate [facility] aminotransferas normal Transaminase Health e [Enzymatic , Serum System activity/volume ] in Serum or Plasma by With P-5'-P Albumin 4.1 {gm/dl} Normal (applies Albumin, [facility] [Mass/volume] to non-numeric Serum Health in Serum or results) System Plasma I.Phosphorus 4.9 mg/dl Above high I. [facility] normal Phosphorus Health System Alanine 204 {IU/L} Above high Alanine [facility] aminotransferas normal Aminotransfe Health e [Enzymatic rase, Serum System activity/volume ] in Serum or Plasma Calcium 9.7 mg/dl Normal (applies Calcium, [facility] [Mass/volume] to non-numeric Total Serum Health in Serum or results) System Plasma A/GRatio 1.17 Normal (applies A/G Ratio [facility] to non-numeric Health results) System Urate 5.2 mg/dl Normal (applies Uric Acid, [facility] [Mass/volume] to non-numeric Serum Health in Serum or results) System Plasma Anion gap in 12.00 mmol/L Normal (applies Anion Gap [facility] Serum or Plasma to non-numeric Health results) System Glomerular Greater than Normal (applies GFR [facility] filtration 90 eGFR will to non-numeric Health rate/1.73 sq provide results) System M.predicted clinicians [Volume with a more Rate/Area] in accurate Serum or Plasma indicator of by renal function Creatinine-base then the serum d formula creatinine. (CKD-EPI) The eGFR is automatically calculated from an empiric formula (endorsed by the National Kidney Foundation) which incorporates age, sex, and race.Clinician s may notice surprisingly low GFR's with serum creatinine valueswithin normal range- particularly in elderly women (with low muscle mass).In the hospital setting, the eGFR should add an element of safety in drug dosing, in assessing the risk of IV contrast administration , and in assessing vascular risk.The NKF staging system is as follows:Normal : eGFR >90 with no kidney markersStage 1: eGFR >90 with kidney markers*Stage 2: eGFR 60-89Stage 3: eGFR 30-59Stage 4: eGFR 15-29Stage 5: eGFR <15 (usually requiring dialysis)*Rolando ers include: Proteinuria, Hematuria, abnormal imaging-studie s, or other blood or urine test abnormalities ID Date Data Source [id number] 12/27/2013 12:00:00 PM EDT Jeanie grey System Name Value Range Interpretation Description Data Sup porting Code Source(s) Document(s ) Triglyceride 134 Normal (applies Triglycerides, [facility] [Mass/volume] mg/dl to non-numeric Serum Health in Serum or results) System Plasma Optimal = < 100 mg/dLBoderline High = 15 0 - 199 mg/dLHigh = 200 - 499 mg/dLVery High = > 500 mg/dL Cholesterol 194 mg/dl Normal (applies Cholesterol, Serum [facility] [Mass/volume] in to non-numeric Health S te Serum or Plasma results) <200 mg/dL = [id number] - 239 md/dL = Borderline>240 mg/dL = High Risk Cholesterol in HDL 33.0 mg/dL Normal (applies HDL Cholestero l, [facility] [Mass/volume] in to non-numeric Serum Health S te Serum or Plasma results) Cholesterol in LDL 134.2 mg/dL Normal (applies Low Density [facility] [Mass/volume] in to non-numeric Lipoprotein, Healt h System Serum or Plasma results) Calculated OPTIMAL: LESS THAN 100 mg/dLNEAR OPTIMAL : 100 - 129 mg/dLBODERLINE HIGH: 130 - 150 mg/dL Cholesterol in VLDL 26.8 Normal (applies to VLDL, Serum [facility] [Mass/volume] in Serum non-numeric results) System or Plasma CHDRisk 5.88 Above high normal [facility]D Risk [facility] ID Date Data Source [id number] 12/27/2013 12:00:00 PM EDT [facility] System Name Value Range Interpretation Description Data Sup porting Code Source(s) Document(s ) Creatine 6475 Above high normal Creatine [facility] kinase.MB {IU/L} Kinase, Serum Health System [Mass/volume ] in Serum or Plasma ID Date Data Source [id number] 12/27/2013 01:05:00 PM EDT [facility] alth System Name Value Range Interpretation Description Data Sup porting Code Source(s) Document(s ) Quantit Indeterminate Abnormal (applies Quantiteron-TB [facility] geraldine-TB Results are to non-numeric Gold. Health Gold. indeterminate results) System for response to ESAT-6,TB7.7 and/or CFP-10 test antigens. NIL 0.04 {IU/mL} Normal (applies NIL [facility] to non-numeric Health results) System TBAG-NI Less than 0.00 Normal (applies TB AG-NIL [facility] L to non-numeric Health results) System Mitogen 0.32 {IU/mL} Normal (applies Mitogen-NIL [facility] -NIL to non-numeric Health results) System The Nil tube value is used to determine if the patient has a preexisting immune response which could cause a fals e- positive reading on the test. In order for a test to be valid, the Nil tube must have a value of <=8.0 IU/mL. The mitogen control tube is used to assure the patient has a healthy immune status and also serves as a control for correct blood handling and incubation. It is used to detect false-negative readings. The mitogen tube must have a gamma interfero n value >=0.5 IU/mL higher than the value of the Nil tube. The TB Ant igen tube is coated with the M. tuberculosis specific antigens. For a test to be considered positive, the TB antigen tube value minus the Nil tube va lue must be >=0.35 IU/mL. For additional information, please refer to http://education.[employer]/fa q/QFT (This link is being provided for informational/educational pu rposes only.) Test Performed at: [facility], [place] [address] Kelli Murdock M.D. ID Date Data Source [id number] 01/21/2014 12:01:00 PM DENAE grey System Name Value Range Interpretation Description Data Sup porting Code Source(s) Document(s ) Quantit Indeterminate Abnormal (applies Quantiteron-TB [facility] geraldine-TB Results are to non-numeric Gold. Health Gold. indeterminate results) System for response to ESAT-6,TB7.7 and/or CFP-10 test antigens. NIL 0.02 {IU/mL} Normal (applies NIL [facility] to non-numeric Health results) System TBAG-NI Less than 0.00 Normal (applies TB AG-NIL [facility] L to non-numeric Health results) System Mitogen 0.06 {IU/mL} Normal (applies Mitogen-NIL [facility] -NIL to non-numeric Health results) System The Nil tube value is used to determine if the patient has a preexisting immune response which could cause a fals e- positive reading on the test. In order for a test to be valid, the Nil tube must have a value of <=8.0 IU/mL. The mitogen control tube is used to assure the patient has a healthy immune status and also serves as a control for correct blood handling and incubation. It is used to detect false-negative readings. The mitogen tube must have a gamma interfero n value >=0.5 IU/mL higher than the value of the Nil tube. The TB Ant igen tube is coated with the M. tuberculosis specific antigens. For a test to be considered positive, the TB antigen tube value minus the Nil tube va lue must be >=0.35 IU/mL. For additional information, please refer to http://education.[employer]/fa q/QFT (This link is being provided for informational/educational pu rposes only.) Test Performed at: [facility], [place] [address] Kelli Murdock M.D. ID Date Data Source [id number] 01/21/2014 04:55:00 PM [facility] Name Value Range Interpretation Description Data Sup porting Code Source(s) Document(s ) FTA,Ser ReactiveReference Abnormal FTA, Serum [facility] um Range: Nonreactive (applies to Health Test Performed at: non-numeric System [employer]) [place] [address] Kelli Murdock M.D. ID Date Data Source [id number] 01/21/2014 04:55:00 PM EDT [facility] alth System Name Value Range Interpretation Description Data Sup porting Code Source(s) Document(s ) C.Trac DetectedReference Abnormal C. [facility] homati Range: Not Detected (applies to [facility] A Positive non-numeric Amp System CT or NG Nucleic results) Acid Amplification Test (NAAT) result should be considered presumptive evidence of infection. The result should be evaluated along with physical examination and other diagnostic findings. However, in cases of an unexpected Positive result, testing a second specimen using an alternative NAAT method may be beneficial. Tests using either Strand Displacement Amplification or Drum Stenciler Mediated Amplification are available if warranted (test codes 32897B and 86866X respectively). Result Reporting|Telephone |Brianna for Dr. Arthur| 01/24/2014 at 3:09 PMCalled to: Brianna for Dr. Markham Name: FranciscoReadback by:Brianna 01/24/2014 / 3:07 PM N.Gono Not Normal (applies N. Gonorrhea [facility] rrheab DetectedReference to non-numeric by [facility] Health yLCR Range: Not Detected results) System This test was performed using the APTIMA COMBO2(R) Assay (GEN-PROBE(R)). Test Performed at: [email or web address] [facility] [employer], [place] [address] Kelli Murdock M.D. ID Date Data Source [id number] 01/21/2014 04:55:00 PM EDT [facility] System Name Value Range Interpretation Description Data Source(s ) Supporting Code Document(s ) Reagin Ab 3 Normal (applies to Titer-RPR [facility] [Titer] in non-numeric Health System Serum by results) RPR Reagin Ab Reactive Abnormal (applies RPR. [facility] [Presence] to non-numeric Health System in Serum by results) RPR Result Reporting|Telephone|DR ARTHUR| 01/22/2014 at 2:16 PMCalled to:DR Markham Name[facility] k by:DR ARTHUR 01/22/2014 / 2:14 PM ID Date Data Source [id number] 01/21/2014 04:55:00 PM EDT [facility] System Name Value Range Interpretation Description Data Sup porting Code Source(s) Document(s ) Leukocytes 5.7 10 Normal (applies WBC Count [facility] [#/volume] in to non-numeric Health Unspecified results) System specimen by Automated count Erythrocytes 5.02 10 Normal (applies RBC Count [facility] [#/volume] in to non-numeric Health Blood by results) System Automated count Hemoglobin 14.4 Normal (applies Hemoglobin, [facility] [Mass/volume] in {gm/dL} to non-numeric Whole Blood Health Blood results) System Hematocrit 42.2 % Normal (applies Hematocrit, [facility] [Volume to non-numeric Whole Blood Health Fraction] of results) System Blood Erythrocyte mean 84.1 fl Normal (applies MCV [facility] corpuscular to non-numeric Health volume [Entitic results) System volume] by Automated count Erythrocyte mean 28.7 pg Normal (applies MCH [facility] corpuscular to non-numeric Health hemoglobin results) System [Entitic mass] by Automated count Erythrocyte mean 34.1 Normal (applies MCHC [facility] corpuscular {gm/dL} to non-numeric Health hemoglobin results) System concentration [Mass/volume] by Automated count Erythrocyte 14.6 % Above high normal RDW-CV [facility] distribution Health width [Entitic System volume] by Automated count Platelets 220 10 Normal (applies Platelet [facility] [#/volume] in to non-numeric Count Health Plasma by results) System Automated count Platelet mean 10.6 fl Above high normal MPV [facility] volume [Entitic Health volume] in Blood System by Automated count Monocytes 1.0 10 Above high normal Monocyte [facility] [#/volume] in Count Health Blood by Manual System count Eosinophils 0.3 10 Normal (applies Eosinophil [facility] [#/volume] in to non-numeric Count Blood Health Blood results) System Neutrophils 3.9 10 Normal (applies Absolute [facility] [#/volume] in to non-numeric Neutrophil Health Body fluid results) Count System Basophils 0.1 10 Normal (applies Basophil [facility] [#/volume] in to non-numeric Count Health Blood by results) System Automated count Lymphocyte 0.5 10 Below low normal Lymphocyte [facility] percent Absolute Health differential System count (procedure) Neutrophils/100 68.0 % Normal (applies Neutrophil % [place] patience leukocytes in to non-numeric Health Blood by results) System Automated count Monocytes/100 17.1 % Above high normal Monocyte % [facility] leukocytes in Health Blood System Eosinophils/100 4.6 % Above high normal Eosinophil % [facility] leukocytes in Health Unspecified System specimen Basophils/100 1.8 % Above high normal Basophil % [facility] leukocytes in Health Unspecified System specimen by Manual count Lymphocytes 8.5 % Below low normal Lymphocyte % [facility] [#/volume] in Health Blood by System Automated count ID Date Data Source [id number] 01/21/2014 04:55:00 PM EDT [facility] System Name Value Range Interpretation Description Data Sup porting Code Source(s) Document(s ) Sodium 140 mmol/L Normal (applies Sodium, [facility] [Moles/volume] to non-numeric Serum Health in Serum or results) System Plasma Potassium 4.3 mmol/L Normal (applies Potassium, [facility] [Mass/volume] to non-numeric Serum Health in Serum or results) System Plasma Chloride 102 mmol/L Normal (applies Chloride, [facility] [Moles/volume] to non-numeric Serum Health in Serum or results) System Plasma Carbon dioxide, 30.0 mmol/L Normal (applies CO2, Serum [place] patience total to non-numeric Health [Moles/volume] results) System in Serum or Plasma TotalProtein 9.2 mg/dl Above high Total [facility] normal Protein Health System Glucose 92 mg/dL Normal (applies Glucose, [facility] [Mass/volume] to non-numeric Serum Health in Serum or results) System Plasma Urea nitrogen 14 mg/dl Normal (applies Blood Urea [facility] [Mass/volume] to non-numeric Nitrogen, Health in Serum or results) Serum System Plasma Creatinine 0.80 mg/dl Normal (applies Creatinine, [facility] [Mass/volume] to non-numeric Serum Health in Serum or results) System Plasma Alkaline 64 {IU/L} Normal (applies Alkaline [facility] phosphatase to non-numeric Phosphatase, Health isoenzymes results) Serum System [Enzymatic activity/volume ] in Serum or Plasma by Heat stability Bilirubin 0.9 mg/dl Normal (applies Bilirubin, [facility] direct and to non-numeric Serum Total Health total panel results) System [Mass/volume] - Serum or Plasma Aspartate 158 {IU/L} Above high Aspartate [facility] aminotransferas normal Transaminase Health e [Enzymatic , Serum System activity/volume ] in Serum or Plasma by With P-5'-P Albumin 3.9 {gm/dl} Normal (applies Albumin, [facility] [Mass/volume] to non-numeric Serum Health in Serum or results) System Plasma I.Phosphorus 4.3 mg/dl Normal (applies I. [facility] to non-numeric Phosphorus Health results) System Alanine 124 {IU/L} Above high Alanine [facility] aminotransferas normal Aminotransfe Health e [Enzymatic rase, Serum System activity/volume ] in Serum or Plasma Calcium 9.7 mg/dl Normal (applies Calcium, [facility] [Mass/volume] to non-numeric Total Serum Health in Serum or results) System Plasma A/GRatio 0.74 Normal (applies A/G Ratio [facility] to non-numeric Health results) System Urate 6.3 mg/dl Normal (applies Uric Acid, [facility] [Mass/volume] to non-numeric Serum Health in Serum or results) System Plasma Anion gap in 8.00 mmol/L Normal (applies Anion Gap [facility] Serum or Plasma to non-numeric Health results) System Glomerular Greater than Normal (applies GFR [facility] filtration 90 eGFR will to non-numeric Health rate/1.73 sq provide results) System M.predicted clinicians [Volume with a more Rate/Area] in accurate Serum or Plasma indicator of by renal function Creatinine-base then the serum d formula creatinine. (CKD-EPI) The eGFR is automatically calculated from an empiric formula (endorsed by the National Kid[employer] Foundation) which incorporates age, sex, and race.Clinician s may notice surprisingly low GFR's with serum creatinine valueswithin normal range- particularly in elderly women (with low muscle mass).In the hospital setting, the eGFR should add an element of safety in drug dosing, in assessing the risk of IV contrast administration , and in assessing vascular risk.The NKF staging system is as follows:Normal : eGFR >90 with no kidney markersStage 1: eGFR >90 with kidney markers*Stage 2: eGFR 60-89Stage 3: eGFR 30-59Stage 4: eGFR 15-29Stage 5: eGFR <15 (usually requiring dialysis)*Rolando ers include: Proteinuria, Hematuria, abnormal imaging-studie s, or other blood or urine test abnormalities ID Date Data Source [id number] 01/21/2014 04:55:00 PM EDT [facility] System Name Value Range Interpretation Description Data Sup porting Code Source(s) Document(s ) Creatine 2795 Above high normal Creatine [facility] kinase.MB {IU/L} Kinase, Serum Health System [Mass/volume ] in Serum or Plasma ID Date Data Source [id number] 01/21/2014 04:58:00 PM EDT [facility] System Name Value Range Interpretation Description Data Sup porting Code Source(s) Document(s ) C.Trach Cancelled see C. Trachomatis [facility] omatisA [id number]/[facility] mp [facility] registration N.Gonor Cancelled see N. Gonorrhea [facility] rheabyL [id number]/Mt by [facility] CR [facility] registration ID Date Data Source [id number] 01/21/2014 04:58:00 PM EDT [facility] System Name Value Range Interpretation Description Data Sup porting Code Source(s) Document(s ) Reagin Ab Cancelled see RPR. [facility] [Presence] [facility] in Serum registration/ by RPR [id number] ID Date Data Source [id number] 01/21/2014 04:58:00 PM EDT [facility] System Name Value Range Interpretation Description Data Sup porting Code Source(s) Document(s ) Leukocytes Cancelled see WBC Count [facility] [#/volume] in [facility] Unspecified registration System specimen by Automated count Erythrocytes Cancelled see RBC Count [facility] [#/volume] in [facility] Blood by registration System Automated count Hemoglobin Cancelled see Hemoglobin, [facility] [Mass/volume] [facility] in Blood registration System Hematocrit Cancelled see Hematocrit, [facility] [Volume [facility] Fraction] of registration System Blood Erythrocyte Cancelled see MCV [facility] mean [facility] corpuscular registration System volume [Entitic volume] by Automated count Erythrocyte Cancelled see MCH [facility] mean [facility] corpuscular registration System hemoglobin [Entitic mass] by Automated count Erythrocyte Cancelled see MCHC [facility] mean [facility] corpuscular registration System hemoglobin concentration [Mass/volume] by Automated count Erythrocyte Cancelled see RDW-CV [facility] distribution [facility] width [Entitic registration System volume] by Automated count Platelets Cancelled see Platelet [facility] [#/volume] in [facility] Plasma by registration System Automated count Platelet mean Cancelled see MPV [facility] volume [Entitic [facility] volume] in registration System Blood by Automated count Monocytes Cancelled see Monocyte [facility] [#/volume] in [facility] Blood by Manual registration System count Eosinophils Cancelled see Eosinophil [facility] [#/volume] in [facility] Count Blood [facility] Blood registration System Neutrophils Cancelled see Absolute [facility] [#/volume] in [facility] Body fluid registration Count System Basophils Cancelled see Basophil [facility] [#/volume] in [facility] Blood by registration System Automated count Lymphocyte Cancelled see Lymphocyte [facility] percent [facility] differential registration System count (procedure) Neutrophils/100 Cancelled see Neutrophil % [facility] leukocytes in [facility] Blood by registration System Automated count Monocytes/100 Cancelled see Monocyte % [facility] leukocytes in [facility] Blood registration System Eosinophils/100 Cancelled see Eosinophil % [facility] leukocytes in [facility] Unspecified registration System specimen Basophils/100 Cancelled see Basophil % [facility] leukocytes in [facility] Unspecified registration System specimen by Manual count Lymphocytes Cancelled see Lymphocyte % [facility] [#/volume] in [facility] Blood by registration System Automated count ID Date Data Source [id number] 01/21/2014 04:58:00 PM EDT [facility] System Name Value Range Interpretation Description Data Sup porting Code Source(s) Document(s ) Sodium Cancelled see Sodium, [facility] [Moles/volume] Nh Serum Health in Serum or [facility] System Plasma registration Potassium Cancelled see Potassium, [facility] [Mass/volume] in Nh Serum Health Serum or Plasma [facility] System registration Chloride Cancelled see Chloride, [facility] [Moles/volume] Nh Serum Health in Serum or [facility] System Plasma registration Carbon dioxide, Cancelled see CO2, Serum [facility] total Nh Health [Moles/volume] Golden System in Serum or registration Plasma TotalProtein Cancelled see Total [facility] Nh Protein Health Golden System registration Glucose Cancelled see Glucose, [facility] [Mass/volume] in Nh Serum Health Serum or Plasma Golden System registration Urea nitrogen Cancelled see Blood Urea [facility] [Mass/volume] in Nh Nitrogen, Health Serum or Plasma [place] Serum System registration Creatinine Cancelled see Creatinine, [facility] [Mass/volume] in Nh Serum Health Serum or Plasma [facility] System registration Alkaline Cancelled see Alkaline [facility] phosphatase Nh Phosphatase, Health isoenzymes [place] Serum System [Enzymatic registration activity/volume] in Serum or Plasma by Heat stability Bilirubin.total Cancelled see Bilirubin, [facility] [Mass/volume] in Nh Serum Total Health Serum or Plasma [facility] System registration Aspartate Cancelled see Aspartate [facility] aminotransferase /Nh Transaminase Health [Enzymatic [place] [employer] Serum System activity/volume] registration in Serum or Plasma by With P-5'-P Albumin Cancelled see Albumin, [facility] [Mass/volume] in /Nh Serum Health Serum or Plasma [facility] System registration I.Phosphorus Cancelled see I. [facility] [id number]/Nh Phosphorus Health Golden System registration Alanine Cancelled see Alanine [facility] aminotransferase [id number]/Nh Aminotransfe Health [Enzymatic [place] rase, Serum System activity/volume] registration in Serum or Plasma Calcium Cancelled see Calcium, [facility] [Mass/volume] in [id number]/Nh Total Serum Health Serum or Plasma [facility] System registration Urate Cancelled see Uric Acid, [facility] [Mass/volume] in 5765612/Nh Serum Health Serum or Plasma Golden System registration Anion gap in Cancelled see Anion Gap [facility] Serum or Plasma 9374342/Nh Health Golden System registration Glomerular Cancelled see GFR [facility] filtration 5510435/Nh Health rate/1.73 sq [facility] System M.predicted registration [Volume Rate/Area] in Serum or Plasma by Creatinine-based formula (CKD-EPI) ID Date Data Source [id number] 01/21/2014 04:58:00 PM ED[facility] Name Value Range Interpretation Description Data Sup porting Code Source(s) Document(s ) Creatine Cancelled see Creatine [facility] kinase.MB 7763223/Nh Kinase, Serum Health [Mass/volum [facility] System e] in Serum registration or Plasma ID Date Data Source [id number] 03/14/2014 11:25:00 AM EDT [facility] alth System Name Value Range Interpretation Description Data Sup porting Code Source(s) Document(s ) C.Trac Not Normal (applies C. [facility] homati DetectedReference to non-numeric Trachomatis Healt h sAmp Range: Not Detected results) Amp System N.Gono Not Normal (applies N. Gonorrhea [facility] rrheab DetectedReference to non-numeric by [facility] Health yLCR Range: Not Detected results) System This test was performed using the APTIMA COMBO2(R) Assay (GEN-PROBE(R)). Test Performed at: [email or web address], [place] [address] Kelli Murdock M.D. ID Date Data Source [id number] 03/14/2014 11:25:00 AM EDT [facility] System Name Value Range Interpretation Description Data Source(s ) Supporting Code Document(s ) Reagin Ab 1:2 Normal (applies to Titer-RPR [facility] [Titer] in non-numeric Health System Serum by results) RPR Reagin Ab Reactive Abnormal (applies RPR. [facility] [Presence] to non-numeric Health System in Serum by results) RPR NOTIFIED NIKKY/ RB OK @ 1111 03/15/14.Previously released as Non-reactive-(1) on 03/15/2014, 11:10 [place] [id number] -(1) - NOTIFIED NIKKY/ RB OK @ 1111 03/15/14. ID Date Data Source [id number] 03/14/2014 11:25:00 AM EDT [facility]ie [facility] alth System Name Value Range Interpretation Description Data Sup porting Code Source(s) Document(s ) Color YELLOW Normal (applies Color [facility] to non-numeric Health results) System Appearance of CLEAR Normal (applies Urine [facility] Urine to non-numeric Appearance Health results) System Specific gravity 1.030 Normal (applies Urine Specific [place] [facility] of Urine to non-numeric [facility] results) System pH.. 6.0 Normal (applies pH.. [facility] {pH_units} to non-numeric Health results) System Glucose,UA NEGATIVE Normal (applies Glucose, UA [facility] to non-numeric Health results) System Protein NEGATIVE Normal (applies Protein [facility] [Mass/volume] in to non-numeric Health Serum or Plasma results) System BilirubinUrine NEGATIVE Normal (applies Bilirubin [facility] to non-numeric Urine Health results) System Urobilinogen 0.2 mg/dL Normal (applies Urobilinogen [facility] [Mass/volume] in to non-numeric UA Health Urine results) System Ketones NEGATIVE Normal (applies Ketones UA [facility] [Mass/volume] in to non-numeric Health Urine results) System Nitrate+Nitrite NEGATIVE Normal (applies Nitrite [facility] [Mass/volume] in to non-numeric Health Unspecified results) System specimen Leukocyte NEGATIVE Normal (applies Leukocyte [facility] esterase to non-numeric Esterase Health [Units/volume] results) Concentration System in Urine UrineBlood NEGATIVE Normal (applies Urine Blood [facility] to non-numeric Health results) System ID Date Data Source [id number] 03/14/2014 11:25:00 AM EDT [facility] alth System Name Value Range Interpretation Description Data Sup porting Code Source(s) Document(s ) Albumin 4.3 Normal (applies Albumin, [facility] [Mass/volume] in {gm/dl} to non-numeric Serum Health Serum or Plasma results) System Bilirubin direct 0.6 Normal (applies Bilirubin, [facility] and total panel mg/dl to non-numeric Serum Total Health [Mass/volume] - results) System Serum or Plasma Aspartate 28 Normal (applies Aspartate [facility] aminotransferase {IU/L} to non-numeric Transaminase, Heal th [Enzymatic results) Serum System activity/volume] in Serum or Plasma by With P-5'-P Alanine 33 Normal (applies Alanine [facility] aminotransferase {IU/L} to non-numeric Aminotransfer Heal th [Enzymatic results) ase, Serum System activity/volume] in Serum or Plasma Alkaline 58 Normal (applies Alkaline [facility] phosphatase {IU/L} to non-numeric Phosphatase, Health isoenzymes results) Serum System [Enzymatic activity/volume] in Serum or Plasma by Heat stability DirectBilirubin 0.2 Normal (applies Direct [facility] mg/dl to non-numeric Bilirubin Health results) System TotalProtein 8.3 Above high Total Protein [facility] mg/dl normal Health System ID Date Data Source [id number] 03/14/2014 11:25:00 AM EDT Jeanie Garcia alth System Name Value Range Interpretation Description Data Sup porting Code Source(s) Document(s ) Creatine 225 Above high normal Creatine [facility] kinase.MB {IU/L} Kinase, Serum Health System [Mass/volume ] in Serum or Plasma ID Date Data Source [id number] 03/14/2014 03:21:00 PM EDT [facility] System Name Value Range Interpretation Description Data Sup porting Code Source(s) Document(s ) SOURCE.. Anus Normal (applies SOURCE.. [facility] ([place]) to non-numeric Health results) System ReportStatus FINAL Normal (applies Report Status [facility] to non-numeric Health results) System NUMBEROFSLID 1 Normal (applies NUMBER OF SLIDES [facility] ES to non-numeric Health results) System STATEMENTOFA SPECIMEN Normal (applies STATEMENT OF [facility] DEQUACY DESCRIPTION: to non-numeric ADEQUACY Health The specimen results) System is received labeled with the patient''''s name and consists of 25 cc(s) of fixed cloudy fluid in Cytolyt Solution. One ThinPrep(s) made and stained with Papanicolaou Stain. INTERPRETATI Anus Normal (applies INTERPRETATION/RE [facility] ON/RESULT1 ([place]):B to non-numeric SULT 1 Health enign. No results) System evidence of malignancy identified. COMMENTCYTO COMMENT: Normal (applies COMMENT CYTO [facility] Anorectal to non-numeric Health junction results) System identified CYTOTECHNOLO NDB, Normal (applies ENGAGEMENT SPECIALIST [facility] GIST CT(ASCP) to non-numeric Health results) System PATHOLOGIST. Gilma Normal (applies PATHOLOGIST. Keiko Turk MD to non-numeric Health results) System ID Date Data Source [id number] 03/15/2014 12:19:47 PM EDT [facility] System Name Value Range Interpretation Description Data Sup porting Code Source(s) Document(s ) FTA,Ser ReactiveReference Abnormal FTA, Serum [facility] um Range: Nonreactive (applies to Health Test Performed at: non-numeric System [facility]) [facility], [place] [address] Kelli Murdock M.D. ID Date Data Source [id number] 07/27/2016 03:40:12 PM EST [facility] System Name Value Range Interpretation Description Data Sup porting Code Source(s) Document(s ) FTA,Ser ReactiveReference Abnormal FTA, Serum [facility] um Range: (applies to Health NonreactiveTest non-numeric System Performed at:[facility] - results) [facility], [place], [place] [address]TopfrpxyAndres Leon M.D. ID Date Data Source [id number] 09/27/2016 03:38:00 PM EDT [facility] al[facility] System Name Value Range Interpretation Description Data Sup porting Code Source(s) Document(s ) TotalB-CD 1 {Percent} Below low normal Total B-CD19 [facility] 19 Health System TotalT-CD 78 Normal (applies Total T-CD3 [facility] 3 to non-numeric Health results) System T-HelperC 51 Normal (applies T-[place] CD4+ [facility] D4+ to non-numeric Health results) System TSuppress 25 Normal (applies T Suppressor [facility] orCD8+ to non-numeric CD8+ Health results) System [place]/Gaytan 2.09 Normal (applies [place]/Suppre [facility] ppressor to non-numeric ssor Health results) System Message SEE Normal (applies Message [facility] NOTELymphocyte to non-numeric Health subset results results) System confirmed by repeat analysis. Test Performed at:[facility], [place], [place] [address]Andres Leon M.D. LymphRel. 741 {Cells/mcL} Below low normal Lymph Rel. [facility] Count Count Health System CD19 < 20 Below low normal CD[facility] System CD3 582 {Cells/mcL} Below low normal CD3 [facility] ore [facility] System HelperCD4 382 {Cells/mcL} Below low normal [place] CD4+ [place] patience + Health System SuppressC 183 Normal (applies Suppress CD8+ [facility] D8+ to non-numeric Health results) System ID Date Data Source [id number] 04/20/2017 11:42:00 AM EDT [facility] System Name Value Range Interpretation Description Data Sup porting Code Source(s) Document(s ) Quantif NegativeNegative Normal (applies Quantiferon-T [facility] geraldine-TB test result. M. to non-numeric B Gold. Health Gold. tuberculosis results) System complex infectionunlikely. NIL 0.03 {IU/mL} Normal (applies NIL [facility] to non-numeric Health results) System TBAG-NI 0.01 {IU/mL} Normal (applies TB AG-NIL [facility] L to non-numeric Health results) System Mitogen 3.34 {IU/mL} Normal (applies Mitogen-NIL [facility] -NIL to non-numeric Health results) System The Nil tube value is used to determine if the patient has apreexisting immune response which could cause a false-posit felipa reading on the test.In order for a test to be valid, the Nil tube must have aval ue of <=8.0 IU/mL.The mitogen control tube is used to assure the patient hasa healthy immune status and also serves as a control forcorrect blood handling and incubation . It is used to detectfalse-negative readings. The mitogen tube must have a g ammainterferon value >=0.5 IU/mL higher than the value of the Niltube.The TB Antigen tube is coated with the M. tuberculosisspecific antigens. For a te st to be considered positive,the TB antigen tube value minus the Nil tube value must be>=0.35 IU/mL.For additional information, please refer [email or web address]/QFT(This link is being provided for informational/educationalpu rposes only.)Test Performed at:[facility], [place], [place] [address]WudhfeswAndres Leon M.D. ID Date Data Source [id number] 04/20/2017 11:42:00 AM EDT [facility] System Name Value Range Interpretation Description Data Sup porting Code Source(s) Document(s ) TotalB-CD1 1 {Percent} Below low normal Total B-CD19 [facility] 9 Health System TotalT-CD3 64 Normal (applies Total T-CD3 [facility] to non-numeric Health System results) T-HelperCD 35 Normal (applies T-[place] CD4+ [facility] 4+ to non-numeric Health System results) TSuppresso 25 Normal (applies T Suppressor [facility] rCD8+ to non-numeric CD8+ Health System results) [place]/Sup 1.40 Normal (applies [place]/Suppres [facility] pressor to non-numeric sor Health System results) Message DNRTest Normal (applies Message [facility] Performed to non-numeric Health System at:[facility] - results) [facility], [place], [place] [address]BsofqixBimal Leon M.D. LymphRel.C 1560 Normal (applies Lymph Rel. [facility] ount to non-numeric Count Health System results) CD19 < 20 Below low normal CD19 [facility] System CD3 999 Normal (applies CD3 [facility] to non-numeric Health System results) HelperCD4+ 542 Normal (applies [place] CD4+ [facility] to non-numeric Health System results) SuppressCD 387 Normal (applies Suppress CD8+ [facility] 8+ to non-numeric Health System results) ID Date Data Source [id number] 04/20/2017 11:42:00 AM EDT [facility] System Name Value Range Interpretation Description Data Sup porting Code Source(s) Document(s ) C.Trac Not Normal (applies C. [facility] homati DetectedReference to non-numeric Trachomatis Healt h sAmp Range: Not Detected results) Amp System N.Gono Not Normal (applies N. Gonorrhea [facility] rrheab DetectedReference to non-numeric by [facility] Health yLCR Range: Not results) System DetectedThis test was performed using the APTIMA COMBO2(R) Assay(GEN-PROBE(R)) .Test Performed at:[employer] [facility], [address] Leon M.D. ID Date Data Source [id number] 04/20/2017 11:42:00 AM EDT [facility] alth System Name Value Range Interpretation Description Data Sup porting Code Source(s) Document(s ) Color YELLOW Normal (applies Color [facility] to non-numeric Health results) System Appearance of CLEAR Normal (applies Urine [facility] Urine to non-numeric Appearance Health results) System Specific gravity 1.020 Normal (applies Urine Specific [facility] of Urine to non-numeric [facility] results) System pH.. 5.5 Normal (applies pH.. [facility] {pH_units} to non-numeric Health results) System Glucose,UA NEGATIVE Normal (applies Glucose, UA [facility] to non-numeric Health results) System Protein NEGATIVE Normal (applies Protein [facility] [Mass/volume] in to non-numeric Health Serum or Plasma results) System BilirubinUrine NEGATIVE Normal (applies Bilirubin [facility] to non-numeric Urine Health results) System Urobilinogen 0.2 mg/dL Normal (applies Urobilinogen [facility] [Mass/volume] in to non-numeric [facility] Urine results) System Ketones NEGATIVE Normal (applies Ketones [facility] [Mass/volume] in to non-numeric Health Urine results) System Nitrate+Nitrite NEGATIVE Normal (applies Nitrite [facility] [Mass/volume] in to non-numeric Health Unspecified results) System specimen Leukocyte NEGATIVE Normal (applies Leukocyte [facility] esterase to non-numeric Esterase Health [Units/volume] results) Concentration System in Urine Leukocytes 2 {/HPF} Normal (applies White Blood [facility] [#/volume] in to non-numeric Cells Health Unspecified results) System specimen by Automated count RedBloodCells 1 {/HPF} Normal (applies Red Blood [facility] to non-numeric Cells Health results) System Mucus 1+ Normal (applies Mucus [facility] to non-numeric Health results) System UrineBlood NEGATIVE Normal (applies Urine Blood [facility] to non-numeric Health results) System ID Date Data Source [id number] 04/20/2017 11:42:00 AM EDT [facility] Name Value Range Interpretation Description Data Sup porting Code Source(s) Document(s ) Leukocytes 7.0 Normal (applies WBC Count [facility] [#/volume] in {10^3_uL to non-numeric Health Unspecified } results) System specimen by Automated count Erythrocytes 5.56 Normal (applies RBC Count [facility] [#/volume] in {10^6_uL to non-numeric Health Blood by } results) System Automated count Hemoglobin 15.5 Normal (applies Hemoglobin [facility] [Mass/volume] in {gm/dL} to non-numeric Health Blood results) System Hematocrit 47.9 % Normal (applies Hematocrit [facility] [Volume to non-numeric Health Fraction] of results) System Blood Erythrocyte mean 86.2 fl Normal (applies MCV [facility] corpuscular to non-numeric Health volume [Entitic results) System volume] by Automated count Erythrocyte mean 27.9 pg Normal (applies MCH [facility] corpuscular to non-numeric Health hemoglobin results) System [Entitic mass] by Automated count Erythrocyte mean 32.4 Below low normal MCHC [facility] corpuscular {gm/dL} Health hemoglobin System concentration [Mass/volume] by Automated count Erythrocyte 13.0 % Normal (applies RDW-CV [facility] distribution to non-numeric Health width [Entitic results) System volume] by Automated count Platelets 216 Normal (applies Platelet Count [facility] [#/volume] in {10^3_uL to non-numeric Health Plasma by } results) System Automated count Platelet mean 10.9 fl Above high MPV [facility] volume [Entitic normal Health volume] in Blood System by Automated count Monocytes 1.1 Above high Monocyte # [facility] [#/volume] in {10^3_uL normal Health Blood by Manual } System count Eosinophils 0.23 Normal (applies Eosinophil # [facility] [#/volume] in {10^3_uL to non-numeric Health Blood } results) System Neutrophils 4.0 Normal (applies Neutrophil # [facility] [#/volume] in {10^3_uL to non-numeric Health Body fluid } results) System Basophils 0.07 Normal (applies Basophil # [facility] [#/volume] in {10^3_uL to non-numeric Health Blood by } results) System Automated count Lymphocyte 1.5 Normal (applies Lymphocyte # [facility] percent {10^3_uL to non-numeric Health differential } results) System count (procedure) Neutrophils/100 57.0 % Normal (applies Neutrophil % Calder[place] patience leukocytes in to non-numeric Health Blood by results) System Automated count Monocytes/100 15.4 % Normal (applies Monocyte % [facility] leukocytes in to non-numeric Health Blood results) System Eosinophils/100 3.3 % Normal (applies Eosinophil % Calder[place] patience leukocytes in to non-numeric Health Unspecified results) System specimen Basophils/100 1.0 % Normal (applies Basophil % [facility] leukocytes in to non-numeric Health Unspecified results) System specimen by Manual count Lymphocytes 21.4 % Normal (applies Lymphocyte % [facility] [#/volume] in to non-numeric Health Blood by results) System Automated count ImmatureGranuloc 1.9 % Above high Immature [facility] ytes% normal Granulocytes % Health System Nucleated 0.0 Normal (applies NRBC % [facility] erythrocytes {/100_WB to non-numeric Health [#/volume] in C} results) System Body fluid ImmatureGranuloc 0.13 Above high Immature [facility] ytes# {10^3_uL normal Granulocytes # Health } System NRBC# 0.00 Below low normal NRBC # [facility] {10^3_uL Health } System ID Date Data Source [id number] 04/20/2017 11:42:00 AM EDT [facility] Name Value Range Interpretation Description Data Sup porting Code Source(s) Document(s ) Sodium 140 Normal (applies Sodium, Serum [facility] [Moles/volume] in mmol/L to non-numeric Health Serum or Plasma results) System Potassium 4.3 Normal (applies Potassium, [facility] [Mass/volume] in mmol/L to non-numeric Serum Health Serum or Plasma results) System Chloride 101 Normal (applies Chloride, [facility] [Moles/volume] in mmol/L to non-numeric Serum Health Serum or Plasma results) System Carbon dioxide, 27.0 Normal (applies CO2, Serum [facility] total mmol/L to non-numeric Health [Moles/volume] in results) System Serum or Plasma TotalProtein 8.0 Normal (applies Total Protein [facility] mg/dl to non-numeric Health results) System Glucose 81 Normal (applies Glucose, [facility] [Mass/volume] in mg/dL to non-numeric Serum Health Serum or Plasma results) System Urea nitrogen 16 Normal (applies Blood Urea [facility] [Mass/volume] in mg/dl to non-numeric Nitrogen, Health Serum or Plasma results) Serum System Creatinine 0.90 Normal (applies Creatinine, [facility] [Mass/volume] in mg/dl to non-numeric Serum Health Serum or Plasma results) System Alkaline 78 Normal (applies Alkaline [facility] phosphatase {IU/L} to non-numeric Phosphatase, Health isoenzymes results) Serum System [Enzymatic activity/volume] in Serum or Plasma by Heat stability Bilirubin.total 0.4 Normal (applies Bilirubin, [facility] [Mass/volume] in mg/dl to non-numeric Serum Total Health Serum or Plasma results) System DirectBilirubin 0.1 Normal (applies Direct [facility] mg/dl to non-numeric Bilirubin Health results) System Aspartate 28 Normal (applies Aspartate [facility] aminotransferase {IU/L} to non-numeric Transaminase, Heal th [Enzymatic results) Serum System activity/volume] in Serum or Plasma by With P-5'-P Albumin 4.4 Normal (applies Albumin, [facility] [Mass/volume] in {gm/dl} to non-numeric Serum Health Serum or Plasma results) System I.Phosphorus 4.0 Normal (applies I. Phosphorus [facility] mg/dl to non-numeric Health results) System Alanine 33 Normal (applies Alanine [facility] aminotransferase {IU/L} to non-numeric Aminotransfer Heal th [Enzymatic results) ase, Serum System activity/volume] in Serum or Plasma Calcium 9.7 Normal (applies Calcium, [facility] [Mass/volume] in mg/dl to non-numeric Total Serum Health Serum or Plasma results) System A/GRatio 1.22 Normal (applies A/G Ratio [facility] to non-numeric Health results) System Urate 7.8 Normal (applies Uric Acid, [facility] [Mass/volume] in mg/dl to non-numeric Serum Health Serum or Plasma results) System Anion gap in Serum 12.00 Normal (applies Anion Gap Calder[place] patience or Plasma mmol/L to non-numeric Health results) System Glomerular > 90 Normal (applies GFR [facility] filtration to non-numeric Health rate/1.73 sq results) System M.predicted [Volume Rate/Area] in Serum or Plasma by Creatinine-based formula (CKD-EPI) eGFR will provide clinicians with a more accurate indicator of renal function then the serum creatinine. The eGFR is automa tically calculated from an empiric formula (endorsed by the National Kidney [employer] ion) which incorporates age, sex, and race.Clinicians may notice surprisingly low GFR's with serum creatinine valueswithin normal range- particularly in elderly wo men (with low muscle mass).In the hospital setting, the eGFR should add an element of safety in drug dosing, in assessing the risk of IV contrast administration, and in assessing vascular risk.The NKF staging system is as follows:Normal: eGFR >90 with no kidney markersStage 1: eGFR >90 with kidney markers*Stage 2: eGFR 60- 89Stage 3: eGFR 30-59Stage 4: eGFR 15-29Stage 5: eGFR <15 (usually requir ing dialysis)*Markers include: Proteinuria, Hematuria, abnormal imaging-studies, or other blood or urine test abnormalities ID Date Data Source [id number] 04/20/2017 11:42:00 AM EDT Jeanie grey System Name Value Range Interpretation Description Data Sup porting Code Source(s) Document(s ) Triglyceride 199 Above high normal Triglycerides, [facility] [Mass/volume] mg/dl Serum Health in Serum or System Plasma Optimal = < 100 mg/dLBoderline High = 15 0 - 199 mg/dLHigh = 200 - 499 mg/dLVery High = > 500 mg/dL Cholesterol 199 mg/dl Normal (applies Cholesterol, Serum [facility] [Mass/volume] in to non-numeric Health S ystem Serum or Plasma results) <200 mg/dL = [id number] - 239 md/dL = Borderline>240 mg/dL = High Risk Cholesterol in HDL 32.0 mg/dL Normal (applies HDL Cholestero l, [facility] [Mass/volume] in to non-numeric Serum Health S ystem Serum or Plasma results) Cholesterol in LDL 127.2 mg/dL Normal (applies Low Density [facility] [Mass/volume] in to non-numeric Lipoprotein, Healt h System Serum or Plasma results) Calculated OPTIMAL: LESS THAN 100 mg/dLNEAR OPTIMAL : 100 - 129 mg/dLBODERLINE HIGH: 130 - 150 mg/dL Cholesterol in VLDL 39.8 Normal (applies to VLDL, Serum [facility] [Mass/volume] in Serum non-numeric results) System or Plasma CHDRisk 6.22 Above high normal CHD Risk [facility] e[facility] System ID Date Data Source [id number] 04/20/2017 11:42:00 AM EDT [facility] Name Value Range Interpretation Description Data Source(s ) Supporting Code Document(s ) Reagin Ab Non-react Normal (applies to RPR. [facility] [Presence] felipa non-numeric Health System in Serum by results) RPR ID Date Data Source [id number] 04/21/2017 11:41:00 AM EDT [facility] Name Value Range Interpretation Description Data Sup porting Code Source(s) Document(s ) Chlamydia Not Normal (applies C. [facility] trachomatis DetectedReferen to non-numeric Trachomatis Healt h rRNA ce Range: Not results) RNA TMA System [Presence] in Detected Unspecified specimen by Probe and target amplification method Neisseria Not Normal (applies N. [facility] gonorrhoeae DetectedReferen to non-numeric Gonorrhoeae Healt h rRNA ce Range: Not results) RNA TMA System [Presence] in DetectedThis Unspecified test was specimen by performed using Probe and the APTIMA target COMBO2(R)Assay amplification (GEN-PROBE(R)). method The performance characteristics of this assay havebeen determined by [facility].Perfo rmance characteristics refer to the analyticalperfo rmance of the test.This test was performed at:[facility] [id number] Performed at:[facility], [address] [place] [address] [place] [address]Afosqqfmaximiliano Carter M.D., Ph.D. ID Date Data Source [id number] 04/21/2017 11:41:00 AM EDT Jeanie grey System Name Value Range Interpretation Description Data Sup porting Code Source(s) Document(s ) ReportType SEE TEXT (*) Normal (applies Report Type [facility] CYTOLOGY,FLUID/ to non-numeric Health BRUSHINGS results) System NON-GYNECOLOGIC AL CYTOLOGY REPORT Report Status: FINAL Clinical Information and/or Impression: Information not provided _ DIAGNOSIS: A) Anus (Brushing): Atypical squamous cells present Anal transformation zone component is represented. CYTOTECHNOLOGIS T: MKP, CT(ASCP) CT screening location: [place] [address] PATHOLOGIST: Gilma Turk M.D., Board Certified in Anatomic Pathology For questions contact Anatomic Pathology Client Service at [phone] (electronic signature) _SPECIMEN DESCRIPTION: A) The specimen is received labeled with the patient''s name and consists of 10 cc(s) of fixed cloudy fluid in PreservCyt Solution. One ThinPrep(s) made and stained with Papanicolaou stain. Gross exam for all specimen parts performed at: [facility]. [place] [address]. Loan Broker: Cassidy Cunha M.D. CLIA No: [id number] ID Date Data Source [id number] 04/21/2017 11:41:00 AM EDT [facility] Name Value Range Interpretation Description Data Sup porting Code Source(s) Document(s ) N.GonorrhoeaeR Not Normal (applies N. [facility] NATMARectal DetectedReferen to non-numeric Gonorrhoeae Healt h ce Range: Not results) RNA TMA System DetectedThis Rectal test was performed using the APTIMA COMBO2(R)Assay (GEN-PROBE(R)). The analytical performance characteristics of thisassay have been determined by [place]. The modificationsha ve not been cleared or approved by the FDA. Thisassay has been validated pursuant to the CLIAregulations and is used for clinical purposes. Chlamydia Not Normal (applies C. [facility] trachomatis DetectedReferen to non-numeric Trachomatis Healt h rRNA ce Range: Not results) RNA, TMA System [Presence] in DetectedThis Rectal Anal by Probe test was and target performed amplification at:[employer] [address] [id number] Performed at:[facility], [address] [place] [id number] Carter M.D., Ph.D. ID Date Data Source [id number] 09/22/2017 10:56:00 AM EDT [facility] System Name Value Range Interpretation Description Data Sup porting Code Source(s) Document(s ) T-HelperCD 37 Normal (applies T-[place] CD4+ [facility] 4+ to non-numeric Health System results) Message DNRTest Normal (applies Message [facility] Performed to non-numeric Health System at:TBR - results) [facility], [place], [place] [address]WeduirlBimal Leon M.D. LymphRel.C 1219 Normal (applies Lymph Rel. [facility] ount to non-numeric Count Health System results) HelperCD4+ 447 Below low normal [place] CD4+ [facility] {Cells/mcL} Health System ID Date Data Source [id number] 09/22/2017 10:56:00 AM EDT [facility] System Name Value Range Interpretation Description Data Sup porting Code Source(s) Document(s ) HepatitisCRati 0.00 {Ratio} Normal (applies Hepatitis C [facility] o to non-numeric Ratio Health results) System HepatitisCVira Non Normal (applies Hepatitis C [facility] lAntibody ReactiveReferen to non-numeric Viral Health ce Range: Non results) Antibody System Reactive ID Date Data Source [id number] 09/22/2017 10:56:00 AM EDT [facility] System Name Value Range Interpretation Description Data Sup porting Code Source(s) Document(s ) Leukocytes [#/volume] 5.3 Normal (applies WBC Count [facility] in Unspecified specimen {10^3_ to non-numeric H ealth by Automated count uL} results) System Erythrocytes [#/volume] 5.83 Normal (applies RBC Count [facility] in Blood by Automated {10^6_ to non-numeric Hea lth count uL} results) System Hemoglobin 16.5 Normal (applies Hemoglobin [facility] [Mass/volume] in Blood {gm/dL to non-numeric He alth } results) System Hematocrit [Volume 48.9 % Normal (applies Hematocrit [facility] Fraction] of Blood to non-numeric Health results) System Erythrocyte mean 83.9 Normal (applies MCV [facility] corpuscular volume fl to non-numeric Health [Entitic volume] by results) System Automated count Erythrocyte mean 28.3 Normal (applies MCH [facility] corpuscular hemoglobin pg to non-numeric He alth [Entitic mass] by results) System Automated count Erythrocyte mean 33.7 Normal (applies MCHC [facility] corpuscular hemoglobin {gm/dL to non-numeric He alth concentration } results) System [Mass/volume] by Automated count Erythrocyte 13.2 % Normal (applies RDW-CV [facility] distribution width to non-numeric Health [Entitic volume] by results) System Automated count ImmaturePlateletFractio 7.60 % Normal (applies Immature [facility] n to non-numeric Platelet Health results) Fraction System Platelets [#/volume] in 182 Normal (applies Platelet [facility] Plasma by Automated {10^3_ to non-numeric Count Healt h count uL} results) System slide is scanned and rare plt.clumps see n Platelet mean 11.5 fl Normal (applies MPV [facility] volume [Entitic to non-numeric Health Sy stem volume] in Blood by results) Automated count Nucleated 0.0 Normal (applies NRBC % [facility] erythrocytes {/100_WBC} to non-numeric Health Syst em [#/volume] in Body results) fluid NRBC# 0.00 Normal (applies NRBC # [facility] {10^3_uL} to non-numeric Health System results) Neutrophils/100 60.6 % Normal (applies Neutrophil % Calder[place] patience leukocytes in Blood to non-numeric Healt h System by Automated count results) Neutrophils 3.2 Normal (applies Neutrophil # [facility] [#/volume] in Body {10^3_uL} to non-numeric Health System fluid results) Lymphocytes 18.3 % Normal (applies Lymphocyte % [facility] [#/volume] in Blood to non-numeric Healt h System by Automated count results) Lymphocyte percent 1.0 Below low normal Lymphocyte # [facility] differential count {10^3_uL} Health Syst em (procedure) Monocytes/100 15.3 % Above high normal Monocyte % [facility] leukocytes in Blood Health Sys tem Monocytes 0.8 Normal (applies Monocyte # [facility] [#/volume] in Blood {10^3_uL} to non-numeric Healt h System by Manual count results) Eosinophils/100 4.7 % Normal (applies Eosinophil % Calderon patience leukocytes in to non-numeric Health Syst em Unspecified results) specimen Eosinophils 0.25 Normal (applies Eosinophil # [facility] [#/volume] in Blood {10^3_uL} to non-numeric Healt h System results) Basophils/100 0.9 % Normal (applies Basophil % [facility] leukocytes in to non-numeric Health Syst em Unspecified results) specimen by Manual count Basophils 0.05 Normal (applies Basophil # [facility] [#/volume] in Blood {10^3_uL} to non-numeric Healt h System by Automated count results) ImmatureGranulocyte 0.01 Normal (applies Immature [facility] s# {10^3_uL} to non-numeric Granulocytes # Health Sys tem results) ImmatureGranulocyte 0.2 % Normal (applies Immature [facility] s% to non-numeric Granulocytes % Health Sys tem results) ID Date Data Source [id number] 09/22/2017 10:56:00 AM EDT [facility] System Name Value Range Interpretation Description Data Sup porting Code Source(s) Document(s ) Sodium 140 Normal (applies Sodium, Serum [facility] [Moles/volume] in mmol/L to non-numeric Health Serum or Plasma results) System Potassium 4.3 Normal (applies Potassium, [facility] [Mass/volume] in mmol/L to non-numeric Serum Health Serum or Plasma results) System Chloride 102 Normal (applies Chloride, [facility] [Moles/volume] in mmol/L to non-numeric Serum Health Serum or Plasma results) System Carbon dioxide, 26.2 Normal (applies CO2, Serum [facility] total mmol/L to non-numeric Health [Moles/volume] in results) System Serum or Plasma TotalProtein 7.7 Normal (applies Total Protein [facility] mg/dl to non-numeric Health results) System Glucose 106 Normal (applies Glucose, [facility] [Mass/volume] in mg/dL to non-numeric Serum Health Serum or Plasma results) System Urea nitrogen 13 Normal (applies Blood Urea [facility] [Mass/volume] in mg/dl to non-numeric Nitrogen, Health Serum or Plasma results) Serum System Creatinine 0.84 Normal (applies Creatinine, [facility] [Mass/volume] in mg/dl to non-numeric Serum Health Serum or Plasma results) System Alkaline 87 Normal (applies Alkaline [facility] phosphatase {IU/L} to non-numeric Phosphatase, Health isoenzymes results) Serum System [Enzymatic activity/volume] in Serum or Plasma by Heat stability Bilirubin.total 0.5 Normal (applies Bilirubin, [facility] [Mass/volume] in mg/dl to non-numeric Serum Total Health Serum or Plasma results) System DirectBilirubin 0.1 Normal (applies Direct [facility] mg/dl to non-numeric Bilirubin Health results) System Aspartate 24 Normal (applies Aspartate [facility] aminotransferase {IU/L} to non-numeric Transaminase, Heal th [Enzymatic results) Serum System activity/volume] in Serum or Plasma by With P-5'-P Albumin 4.6 Normal (applies Albumin, [facility] [Mass/volume] in {gm/dl} to non-numeric Serum Health Serum or Plasma results) System I.Phosphorus 3.8 Normal (applies I. Phosphorus [facility] mg/dl to non-numeric Health results) System Alanine 27 Normal (applies Alanine [facility] aminotransferase {IU/L} to non-numeric Aminotransfer Heal th [Enzymatic results) ase, Serum System activity/volume] in Serum or Plasma Calcium 9.4 Normal (applies Calcium, [facility] [Mass/volume] in mg/dl to non-numeric Total Serum Health Serum or Plasma results) System A/GRatio 1.48 Normal (applies A/G Ratio [facility] to non-numeric Health results) System Urate 7.7 Above high Uric Acid, [facility] [Mass/volume] in mg/dl normal Serum Health Serum or Plasma System Anion gap in Serum 11.80 Normal (applies Anion Gap Calder[place] patience or Plasma mmol/L to non-numeric Health results) System Glomerular > 90 Normal (applies GFR [facility] filtration to non-numeric Health rate/1.73 sq results) System M.predicted [Volume Rate/Area] in Serum or Plasma by Creatinine-based formula (CKD-EPI) eGFR will provide clinicians with a more accurate indicator of renal function then the serum creatinine. The eGFR is automa tically calculated from an empiric formula (endorsed by the National Kidney Foundat ion) which incorporates age, sex, and race.Clinicians may notice surprisingly low GFR's with serum creatinine valueswithin normal range- particularly in elderly wo men (with low muscle mass).In the hospital setting, the eGFR should add an element of safety in drug dosing, in assessing the risk of IV contrast administration, and in assessing vascular risk.The NKF staging system is as follows:Normal: eGFR >90 with no kidney markersStage 1: eGFR >90 with kidney markers*Stage 2: eGFR 60- 89Stage 3: eGFR 30-59Stage 4: eGFR 15-29Stage 5: eGFR <15 (usually requir ing dialysis)*Markers include: Proteinuria, Hematuria, abnormal imaging-studies, or other blood or urine test abnormalities ID Date Data Source [id number] 09/22/2017 10:56:00 AM EDT Jeanie grey System Name Value Range Interpretation Description Data Sup porting Code Source(s) Document(s ) Creatine 206 Normal (applies Creatine [facility] kinase.MB {IU/L} to non-numeric Kinase, Serum Health Syst em [Mass/volume results) ] in Serum or Plasma ID Date Data Source [id number] 02/14/2018 04:46:00 PM EDT [facility]ie Garcia alth System Name Value Range Interpretation Description Data Sup porting Code Source(s) Document(s ) T-HelperCD 40 Normal (applies T-[place] CD4+ [facility] 4+ to non-numeric Health System results) Message DNRTest Normal (applies Message [facility] Performed to non-numeric Health System at:[facility] - results) [facility], [place], [place] [id number] Leon M.D. LymphRel.C 1011 Normal (applies Lymph Rel. [facility] ount to non-numeric Count Health System results) HelperCD4+ 404 Below low normal [place] CD4+ [facility] {Cells/mcL} Health System ID Date Data Source [id number] 02/14/2018 04:46:00 PM EDT [facility] System Name Value Range Interpretation Description Data Sup porting Code Source(s) Document(s ) Leukocytes 5.3 Normal (applies WBC Count [facility] [#/volume] in {10^3_uL to non-numeric Health Unspecified } results) System specimen by Automated count Erythrocytes 5.30 Normal (applies RBC Count [facility] [#/volume] in {10^6_uL to non-numeric Health Blood by } results) System Automated count Hemoglobin 15.0 Normal (applies Hemoglobin [facility] [Mass/volume] in {gm/dL} to non-numeric Health Blood results) System Hematocrit 45.5 % Normal (applies Hematocrit [facility] [Volume to non-numeric Health Fraction] of results) System Blood Erythrocyte mean 85.8 fl Normal (applies MCV [facility] corpuscular to non-numeric Health volume [Entitic results) System volume] by Automated count Erythrocyte mean 28.3 pg Normal (applies MCH [facility] corpuscular to non-numeric Health hemoglobin results) System [Entitic mass] by Automated count Erythrocyte mean 33.0 Normal (applies MCHC [facility] corpuscular {gm/dL} to non-numeric Health hemoglobin results) System concentration [Mass/volume] by Automated count Erythrocyte 13.2 % Normal (applies RDW-CV [facility] distribution to non-numeric Health width [Entitic results) System volume] by Automated count Platelets 170 Normal (applies Platelet Count [facility] [#/volume] in {10^3_uL to non-numeric Health Plasma by } results) System Automated count Platelet mean 10.9 fl Normal (applies MPV [facility] volume [Entitic to non-numeric Health volume] in Blood results) System by Automated count Nucleated 0.0 Normal (applies NRBC % [facility] erythrocytes {/100_WB to non-numeric Health [#/volume] in C} results) System Body fluid NRBC# 0.00 Normal (applies NRBC # [facility] {10^3_uL to non-numeric Health } results) System Neutrophils/100 60.9 % Normal (applies Neutrophil % [place] patience leukocytes in to non-numeric Health Blood by results) System Automated count Neutrophils 3.2 Normal (applies Neutrophil # [facility] [#/volume] in {10^3_uL to non-numeric Health Body fluid } results) System Lymphocytes 18.8 % Normal (applies Lymphocyte % [facility] [#/volume] in to non-numeric Health Blood by results) System Automated count Lymphocyte 1.0 Normal (applies Lymphocyte # [facility] percent {10^3_uL to non-numeric Health differential } results) System count (procedure) Monocytes/100 16.2 % Above high Monocyte % [facility] leukocytes in normal Health Blood System Monocytes 0.9 Normal (applies Monocyte # [facility] [#/volume] in {10^3_uL to non-numeric Health Blood by Manual } results) System count Eosinophils/100 2.6 % Normal (applies Eosinophil % [place] patience leukocytes in to non-numeric Health Unspecified results) System specimen Eosinophils 0.14 Normal (applies Eosinophil # [facility] [#/volume] in {10^3_uL to non-numeric Health Blood } results) System Basophils/100 0.9 % Normal (applies Basophil % [facility] leukocytes in to non-numeric Health Unspecified results) System specimen by Manual count Basophils 0.05 Normal (applies Basophil # [facility] [#/volume] in {10^3_uL to non-numeric Health Blood by } results) System Automated count ImmatureGranuloc 0.03 Normal (applies Immature [facility] ytes# {10^3_uL to non-numeric Granulocytes # Health } results) System ImmatureGranuloc 0.6 % Normal (applies Immature [facility] ytes% to non-numeric Granulocytes % Health results) System ID Date Data Source [id number] 02/14/2018 04:46:00 PM EDT [facility] Name Value Range Interpretation Description Data Sup porting Code Source(s) Document(s ) Sodium 133 Below low normal Sodium, Serum [facility] [Moles/volume] in mmol/L Health Serum or Plasma System Potassium 4.6 Normal (applies Potassium, [facility] [Mass/volume] in mmol/L to non-numeric Serum Health Serum or Plasma results) System Chloride 105 Normal (applies Chloride, [facility] [Moles/volume] in mmol/L to non-numeric Serum Health Serum or Plasma results) System Carbon dioxide, 27.2 Normal (applies CO2, Serum [facility] total mmol/L to non-numeric Health [Moles/volume] in results) System Serum or Plasma TotalProtein 8.2 Above high Total Protein [facility] mg/dl normal Health System Glucose 94 Normal (applies Glucose, [facility] [Mass/volume] in mg/dL to non-numeric Serum Health Serum or Plasma results) System Urea nitrogen 17 Normal (applies Blood Urea [facility] [Mass/volume] in mg/dl to non-numeric Nitrogen, Health Serum or Plasma results) Serum System Creatinine 0.81 Normal (applies Creatinine, [facility] [Mass/volume] in mg/dl to non-numeric Serum Health Serum or Plasma results) System Alkaline 81 Normal (applies Alkaline [facility] phosphatase {IU/L} to non-numeric Phosphatase, Health isoenzymes results) Serum System [Enzymatic activity/volume] in Serum or Plasma by Heat stability Bilirubin direct 0.4 Normal (applies Bilirubin, [facility] and total panel mg/dl to non-numeric Serum Total Health [Mass/volume] - results) System Serum or Plasma DirectBilirubin 0.1 Normal (applies Direct [facility] mg/dl to non-numeric Bilirubin Health results) System Aspartate 30 Normal (applies Aspartate [facility] aminotransferase {IU/L} to non-numeric Transaminase, Heal th [Enzymatic results) Serum System activity/volume] in Serum or Plasma by With P-5'-P Albumin 4.0 Normal (applies Albumin, [facility] [Mass/volume] in {gm/dl} to non-numeric Serum Health Serum or Plasma results) System I.Phosphorus 3.9 Normal (applies I. Phosphorus [facility] mg/dl to non-numeric Health results) System Alanine 29 Normal (applies Alanine [facility] aminotransferase {IU/L} to non-numeric Aminotransfer Heal th [Enzymatic results) ase, Serum System activity/volume] in Serum or Plasma Calcium 9.0 Normal (applies Calcium, [facility] [Mass/volume] in mg/dl to non-numeric Total Serum Health Serum or Plasma results) System A/GRatio 0.95 Normal (applies A/G Ratio [facility] to non-numeric Health results) System Urate 7.2 Normal (applies Uric Acid, [facility] [Mass/volume] in mg/dl to non-numeric Serum Health Serum or Plasma results) System Anion gap in Serum 0.80 Normal (applies Anion Gap Calderon patience or Plasma mmol/L to non-numeric Health results) System Glomerular > 90 Normal (applies GFR [facility] filtration to non-numeric Health rate/1.73 sq results) System M.predicted [Volume Rate/Area] in Serum or Plasma by Creatinine-based formula (CKD-EPI) eGFR will provide clinicians with a more accurate indicator of renal function then the serum creatinine. The eGFR is automa tically calculated from an empiric formula (endorsed by the National Kidney [employer] ion) which incorporates age, sex, and race.Clinicians may notice surprisingly low GFR's with serum creatinine valueswithin normal range- particularly in elderly wo men (with low muscle mass).In the hospital setting, the eGFR should add an element of safety in drug dosing, in assessing the risk of IV contrast administration, and in assessing vascular risk.The NKF staging system is as follows:Normal: eGFR >90 with no kidney markersStage 1: eGFR >90 with kidney markers*Stage 2: eGFR 60- 89Stage 3: eGFR 30-59Stage 4: eGFR 15-29Stage 5: eGFR <15 (usually requir ing dialysis)*Markers include: Proteinuria, Hematuria, abnormal imaging-studies, or other blood or urine test abnormalities ID Date Data Source [id number] 03/07/2018 04:31:00 PM EDT [facility] Name Value Range Interpretation Description Data Sup porting Code Source(s) Document(s ) C.Trac Not Normal (applies C. [facility] homati DetectedReference to non-numeric Trachomatis Healt h sAmp Range: Not Detected results) Amp System N.Gono Not Normal (applies N. Gonorrhea [facility] rrheab DetectedReference to non-numeric by [facility] yLCR Range: Not results) System DetectedThis test was performed using the APTIMA COMBO2(R) Assay(GEN-PROBE(R)) .Test Performed at:[facility] [employer] [address] [employer] [facility], [place], [place] [address]LmemqcheAndres Leon M.D. ID Date Data Source [id number] 03/07/2018 04:31:00 PM EDT [facility] alth System Name Value Range Interpretation Description Data Sup porting Code Source(s) Document(s ) Chlamydia Not Normal (applies C. [facility] trachomatis DetectedReferen to non-numeric Trachomatis Healt h rRNA ce Range: Not results) RNA TMA System [Presence] in Detected Unspecified specimen by Probe and target amplification method Neisseria Not Normal (applies N. [facility] gonorrhoeae DetectedReferen to non-numeric Gonorrhoeae Healt h rRNA ce Range: Not results) RNA TMA System [Presence] in DetectedThis Unspecified test was specimen by performed using Probe and the APTIMA target COMBO2(R)Assay amplification (GEN-PROBE(R)). method The performance characteristics of this assay havebeen determined by [facility].Perfo rmance characteristics refer to the analyticalperfo rmance of the test.This test was performed at:[facility] [employer] [address] [id number] Performed at:[facility] [employer], [address] [place] [id number] Carter M.D., Ph.D. ID Date Data Source [id number] 03/07/2018 04:31:00 PM EDT [facility] alth System Name Value Range Interpretation Description Data Sup porting Code Source(s) Document(s ) N.GonorrhoeaeR Not Normal (applies N. [facility] NATMARectal DetectedReferen to non-numeric Gonorrhoeae Healt h ce Range: Not results) RNA TMA System Detected Rectal Chlamydia Not Normal (applies C. [facility] trachomatis DetectedReferen to non-numeric Trachomatis Healt h rRNA ce Range: Not results) RNA, TMA System [Presence] in DetectedThis Rectal Anal by Probe test was and target performed using amplification the APTIMA method COMBO2(R)Assay (GEN-PROBE(R)). The analytical performance characteristics of thisassay have been determined [place] The modificationsha ve not been cleared or approved by the FDA. Thisassay has been validated pursuant to the CLIAregulations and is used for clinical purposes.This test was performed at:[facility] [address] [id number] Performed at:[facility] [employer] [facility], [address] [place] [id number] Carter M.D., Ph.D. ID Date Data Source [id number] 03/07/2018 04:31:00 PM EDT [facility] Name Value Range Interpretation Description Data Source(s ) Supporting Code Document(s ) Reagin Ab Non-react Normal (applies to RPR. [facility] [Presence] felipa non-numeric Health System in Serum by results) RPR ID Date Data Source [id number] 04/18/2018 04:29:00 PM EDT [facility] System Name Value Range Interpretation Description Data Sup porting Code Source(s) Document(s ) FTA,Ser ReactiveReference Abnormal FTA, Serum [facility] um Range: (applies to Health NonreactiveTest non-numeric System Performed at:[facility] - results) [facility], [address] Leon M.D. Result Reporting|Telephone |DR. ARTHUR|04/19/2018 at 3:45 PMCalled to:Tech Name:SAUL-Omayra by:04/19/2018 / 3:44 PM ID Date Data Source [id number] 04/18/2018 04:29:00 PM EDT [facility] Name Value Range Interpretation Description Data Sup porting Code Source(s) Document(s ) C.Trac Not Normal (applies C. [facility] homati DetectedReference to non-numeric Trachomatis Healt h sAmp Range: Not Detected results) Amp System N.Gono Not Normal (applies N. Gonorrhea [facility] rrheab DetectedReference to non-numeric by [facility] Health yLCR Range: Not results) System DetectedThis test was performed using the APTIMA COMBO2(R) Assay(GEN-PROBE(R)) .Test Performed at:[facility] [employer] [address] [facility], [place], [place] [address]BkggaenmAndres Leon M.D. ID Date Data Source [id number] 04/18/2018 04:29:00 PM EDT [facility] al[facility] System Name Value Range Interpretation Description Data Sup porting Code Source(s) Document(s ) Chlamydia Not Normal (applies C. [facility] trachomatis DetectedReferen to non-numeric Trachomatis Healt h rRNA ce Range: Not results) RNA TMA System [Presence] in Detected Unspecified specimen by Probe and target amplification method Neisseria Not Normal (applies N. [facility] gonorrhoeae DetectedReferen to non-numeric Gonorrhoeae Healt h rRNA ce Range: Not results) RNA TMA System [Presence] in DetectedThis Unspecified test was specimen by performed using Probe and the APTIMA target COMBO2(R)Assay amplification (GEN-PROBE(R)). method The performance characteristics of this assay havebeen determined by [facility].Perfo rmance characteristics refer to the analyticalperfo rmance of the test.This test was performed at:[facility] [address] [id number] Performed at:[facility] [employer] [facility], [address] [place] [id number] Carter M.D., Ph.D. ID Date Data Source [id number] 04/18/2018 04:29:00 PM EDT [facility] alth System Name Value Range Interpretation Description Data Sup porting Code Source(s) Document(s ) N.GonorrhoeaeR Not Normal (applies N. [facility] NATMARectal DetectedReferen to non-numeric Gonorrhoeae Healt h ce Range: Not results) RNA TMA System Detected Rectal Chlamydia Not Normal (applies C. [facility] trachomatis DetectedReferen to non-numeric Trachomatis Healt h rRNA ce Range: Not results) RNA, TMA System [Presence] in DetectedThis Rectal Anal by Probe test was and target performed using amplification the APTIMA method COMBO2(R)Assay (GEN-PROBE(R)). The analytical performance characteristics of thisassay have been determined by [facility] [place], [place]. The modificationsha ve not been cleared or approved by the FDA. Thisassay has been validated pursuant to the CLIAregulations and is used for clinical purposes.This test was performed at:[facility] [address] [id number] Performed at:[facility] - [employer], [address] [place] [id number] Carter M.D., Ph.D. ID Date Data Source [id number] 04/18/2018 04:29:00 PM EDT [facility] Name Value Range Interpretation Description Data Source(s ) Supporting Code Document(s ) Reagin Ab 1:2 Normal (applies to Titer-RPR [facility] [Titer] in non-numeric Health System Serum by results) RPR Reagin Ab Reactive Abnormal (applies RPR. [facility] [Presence] to non-numeric Health System in Serum by results) RPR ID Date Data Source [id number] 06/27/2018 04:38:00 PM EST [facility] Name Value Range Interpretation Description Data Sup porting Code Source(s) Document(s ) T-HelperCD 33 Normal (applies T-[place] CD4+ [facility] 4+ to non-numeric Health System results) Message DNRTest Normal (applies Message [facility] Performed to non-numeric Health System at:[facility] - results) [facility], [place], [place] [address]MlngvyjBimal Leon M.D. LymphRel.C 1220 Normal (applies Lymph Rel. [facility] ount to non-numeric Count Health System results) HelperCD4+ 403 Below low normal [place] CD4+ [facility] {Cells/mcL} Health System ID Date Data Source [id number] 06/27/2018 04:38:00 PM EST [facility] System Name Value Range Interpretation Description Data Sup porting Code Source(s) Document(s ) C.Trac Not Normal (applies C. [facility] homati DetectedReference to non-numeric Trachomatis Healt h sAmp Range: Not Detected results) Amp System N.Gono Not Normal (applies N. Gonorrhea [facility] rrheab DetectedReference to non-numeric by [facility] yLCR Range: Not results) System DetectedThis test was performed using the APTIMA COMBO2(R) Assay(GEN-PROBE(R)) .Test Performed at:[facility] [employer], [place], [place] [address]OhksnwcwAndres Leon M.D. ID Date Data Source [id number] 06/27/2018 04:38:00 PM EST [facility] System Name Value Range Interpretation Description Data Sup porting Code Source(s) Document(s ) Glucose,UA NEG Normal (applies Glucose, UA [facility] to non-numeric Health results) System Protein NEG Normal (applies Protein [facility] [Mass/volume] in to non-numeric Health Serum or Plasma results) System BilirubinUrine NEG Normal (applies Bilirubin [facility] to non-numeric Urine Health results) System Urobilinogen < 2.0 Normal (applies Urobilinogen [facility] [Mass/volume] in to non-numeric UA Health Urine results) System Reference Range: Negative or <=2.0 pH.. 6.0 {pH_units} Normal (applies pH.. [facility] to non-numeric Health System results) Ketones NEG Normal (applies Ketones UA [facility] [Mass/volume] in to non-numeric Health S ystem Urine results) Nitrate+Nitrite Negative Normal (applies Nitrite [facility] [Mass/volume] in to non-numeric Health S ystem Unspecified results) specimen Leukocyte NEG Normal (applies Leukocyte Esterase [place] patience esterase to non-numeric Concentration Health Syst em [Units/volume] in results) Urine Appearance of CLEAR Normal (applies Urine Appearance [facility] Urine to non-numeric Health System results) Specific gravity 1.003 Normal (applies Urine Specific Mo [facility] of Urine to non-numeric [facility] results) Color Colorless Normal (applies Color [facility] to non-numeric Health System results) UrineBlood NEG Normal (applies Urine Blood [facility] to non-numeric Health System results) ID Date Data Source [id number] 06/27/2018 04:38:00 PM EST [facility] System Name Value Range Interpretation Description Data Sup porting Code Source(s) Document(s ) Leukocytes 7.1 Normal (applies WBC Count [facility] [#/volume] in {10^3_uL to non-numeric Health Unspecified } results) System specimen by Automated count Erythrocytes 5.14 Normal (applies RBC Count [facility] [#/volume] in {10^6_uL to non-numeric Health Blood by } results) System Automated count Hemoglobin 14.2 Normal (applies Hemoglobin [facility] [Mass/volume] in {gm/dL} to non-numeric Health Blood results) System Hematocrit 43.6 % Normal (applies Hematocrit [facility] [Volume to non-numeric Health Fraction] of results) System Blood Erythrocyte mean 84.8 fl Normal (applies MCV [facility] corpuscular to non-numeric Health volume [Entitic results) System volume] by Automated count Erythrocyte mean 27.6 pg Normal (applies MCH [facility] corpuscular to non-numeric Health hemoglobin results) System [Entitic mass] by Automated count Erythrocyte mean 32.6 Normal (applies MCHC [facility] corpuscular {gm/dL} to non-numeric Health hemoglobin results) System concentration [Mass/volume] by Automated count Erythrocyte 13.2 % Normal (applies RDW-CV [facility] distribution to non-numeric Health width [Entitic results) System volume] by Automated count Platelets 207 Normal (applies Platelet Count [facility] [#/volume] in {10^3_uL to non-numeric Health Plasma by } results) System Automated count Platelet mean 11.0 fl Normal (applies MPV [facility] volume [Entitic to non-numeric Health volume] in Blood results) System by Automated count Nucleated 0.0 Normal (applies NRBC % [facility] erythrocytes {/100_WB to non-numeric Health [#/volume] in C} results) System Body fluid NRBC# 0.00 Normal (applies NRBC # [facility] {10^3_uL to non-numeric Health } results) System Neutrophils/100 64.9 % Normal (applies Neutrophil % Calder[place] patience leukocytes in to non-numeric Health Blood by results) System Automated count Neutrophils 4.6 Normal (applies Neutrophil # [facility] [#/volume] in {10^3_uL to non-numeric Health Body fluid } results) System Lymphocytes 17.0 % Normal (applies Lymphocyte % [facility] [#/volume] in to non-numeric Health Blood by results) System Automated count Lymphocyte 1.2 Normal (applies Lymphocyte # [facility] percent {10^3_uL to non-numeric Health differential } results) System count (procedure) Monocytes/100 13.9 % Above high Monocyte % [facility] leukocytes in normal Health Blood System Monocytes 1.0 Normal (applies Monocyte # [facility] [#/volume] in {10^3_uL to non-numeric Health Blood by Manual } results) System count Eosinophils/100 3.0 % Normal (applies Eosinophil % [place] patience leukocytes in to non-numeric Health Unspecified results) System specimen Eosinophils 0.21 Normal (applies Eosinophil # [facility] [#/volume] in {10^3_uL to non-numeric Health Blood } results) System Basophils/100 0.6 % Normal (applies Basophil % [facility] leukocytes in to non-numeric Health Unspecified results) System specimen by Manual count Basophils 0.04 Normal (applies Basophil # [facility] [#/volume] in {10^3_uL to non-numeric Health Blood by } results) System Automated count ImmatureGranuloc 0.04 Normal (applies Immature [facility] ytes# {10^3_uL to non-numeric Granulocytes # Health } results) System ImmatureGranuloc 0.6 % Normal (applies Immature [facility] ytes% to non-numeric Granulocytes % Health results) System ID Date Data Source [id number] 06/27/2018 04:38:00 PM EST [facility] Name Value Range Interpretation Description Data Sup porting Code Source(s) Document(s ) Sodium 136 Normal (applies Sodium, Serum [facility] [Moles/volume] in mmol/L to non-numeric Health Serum or Plasma results) System Potassium 4.1 Normal (applies Potassium, [facility] [Mass/volume] in mmol/L to non-numeric Serum Health Serum or Plasma results) System Chloride 100 Below low normal Chloride, [facility] [Moles/volume] in mmol/L Serum Health Serum or Plasma System Carbon dioxide, 27.6 Normal (applies CO2, Serum [facility] total mmol/L to non-numeric Health [Moles/volume] in results) System Serum or Plasma TotalProtein 7.4 Normal (applies Total Protein [facility] mg/dl to non-numeric Health results) System Glucose 107 Normal (applies Glucose, [facility] [Mass/volume] in mg/dL to non-numeric Serum Health Serum or Plasma results) System Urea nitrogen 18 Normal (applies Blood Urea [facility] [Mass/volume] in mg/dl to non-numeric Nitrogen, Health Serum or Plasma results) Serum System Creatinine 0.81 Normal (applies Creatinine, [facility] [Mass/volume] in mg/dl to non-numeric Serum Health Serum or Plasma results) System Alkaline 86 Normal (applies Alkaline [facility] phosphatase {IU/L} to non-numeric Phosphatase, Health isoenzymes results) Serum System [Enzymatic activity/volume] in Serum or Plasma by Heat stability Bilirubin.total 0.3 Normal (applies Bilirubin, [facility] [Mass/volume] in mg/dl to non-numeric Serum Total Health Serum or Plasma results) System DirectBilirubin 0.1 Normal (applies Direct [facility] mg/dl to non-numeric Bilirubin Health results) System Aspartate 22 Normal (applies Aspartate [facility] aminotransferase {IU/L} to non-numeric Transaminase, Heal th [Enzymatic results) Serum System activity/volume] in Serum or Plasma by With P-5'-P Albumin 4.4 Normal (applies Albumin, [facility] [Mass/volume] in {gm/dl} to non-numeric Serum Health Serum or Plasma results) System I.Phosphorus 4.4 Normal (applies I. Phosphorus [facility] mg/dl to non-numeric Health results) System Alanine 28 Normal (applies Alanine [facility] aminotransferase {IU/L} to non-numeric Aminotransfer Heal th [Enzymatic results) ase, Serum System activity/volume] in Serum or Plasma Calcium 9.5 Normal (applies Calcium, [facility] [Mass/volume] in mg/dl to non-numeric Total Serum Health Serum or Plasma results) System A/GRatio 1.47 Normal (applies A/G Ratio [facility] to non-numeric Health results) System Urate 6.7 Normal (applies Uric Acid, [facility] [Mass/volume] in mg/dl to non-numeric Serum Health Serum or Plasma results) System Anion gap in Serum 8.40 Normal (applies Anion Gap Calderon patience or Plasma mmol/L to non-numeric Health results) System Glomerular > 90 Normal (applies GFR [facility] filtration to non-numeric Health rate/1.73 sq results) System M.predicted [Volume Rate/Area] in Serum or Plasma by Creatinine-based formula (CKD-EPI) eGFR will provide clinicians with a more accurate indicator of renal function then the serum creatinine. The eGFR is automa tically calculated from an empiric formula (endorsed by the National Kidney Foundat ion) which incorporates age, sex, and race.Clinicians may notice surprisingly low GFR's with serum creatinine valueswithin normal range- particularly in elderly wo men (with low muscle mass).In the hospital setting, the eGFR should add an element of safety in drug dosing, in assessing the risk of IV contrast administration, and in assessing vascular risk.The NKF staging system is as follows:Normal: eGFR >90 with no kidney markersStage 1: eGFR >90 with kidney markers*Stage 2: eGFR 60- 89Stage 3: eGFR 30-59Stage 4: eGFR 15-29Stage 5: eGFR <15 (usually requir ing dialysis)*Markers include: Proteinuria, Hematuria, abnormal imaging-studies, or other blood or urine test abnormalities ID Date Data Source [id number] 06/27/2018 04:38:00 PM EST [facility] Name Value Range Interpretation Description Data Source(s ) Supporting Code Document(s ) Reagin Ab Non-react Normal (applies to RPR. [facility] [Presence] felipa non-numeric Health System in Serum by results) RPR ID Date Data Source [id number] 07/18/2018 04:36:00 PM EST [facility] System Name Value Range Interpretation Description Data Sup porting Code Source(s) Document(s ) C.Trac Not Normal (applies C. [facility] homati DetectedReference to non-numeric Trachomatis Healt h sAmp Range: Not Detected results) Amp System N.Gono Not Normal (applies N. Gonorrhea [facility] rrheab DetectedReference to non-numeric by [facility] Health yLCR Range: Not results) System DetectedThis test was performed using the APTIMA COMBO2(R) Assay(GEN-PROBE(R)) .Test Performed at:[email or web address], [place], [place] [address]Andres Leon M.D. ID Date Data Source [id number] 07/18/2018 04:36:00 PM EST [facility] Name Value Range Interpretation Description Data Sup porting Code Source(s) Document(s ) Color Yellow Normal (applies Color [facility] to non-numeric Health results) System Appearance of CLEAR Normal (applies Urine [facility] Urine to non-numeric Appearance Health results) System Specific gravity 1.005 Normal (applies Urine Specific [facility] of Urine to non-numeric [facility] results) System pH.. 6.0 Normal (applies pH.. [facility] {pH_unit to non-numeric Health s} results) System Glucose,UA NEG Normal (applies Glucose, UA [facility] to non-numeric Health results) System Protein NEG Normal (applies Protein [facility] [Mass/volume] in to non-numeric Health Serum or Plasma results) System BilirubinUrine NEG Normal (applies Bilirubin [facility] to non-numeric Urine Health results) System Urobilinogen < 2.0 Normal (applies Urobilinogen [facility] [Mass/volume] in to non-numeric [facility] Urine results) System Reference Range: Negative or <=2.0 Ketones NEG Normal (applies Ketones UA [facility] [Mass/volume] in to non-numeric Health S yste Urine results) Nitrate+Nitrite Negative Normal (applies Nitrite [facility] [Mass/volume] in to non-numeric Health S ystem Unspecified specimen results) Leukocyte esterase NEG Normal (applies Leukocyte Fadia ase [facility] [Units/volume] in to non-numeric Concentration [facility] Urine results) Leukocytes < 1 /HPF Normal (applies White Blood Cells [facility] [#/volume] in to non-numeric Health Syst em Unspecified specimen results) by Automated count RedBloodCells < 1 /HPF Normal (applies Red Blood Cells [facility] to non-numeric Health System results) Mucus RARE Normal (applies Mucus [facility] to non-numeric Health System results) UrineBlood NEG Normal (applies Urine Blood [facility] to non-numeric [facility] System results) ID Date Data Source [id number] 07/18/2018 04:36:00 PM EST [facility] Name Value Range Interpretation Description Data Source(s ) Supporting Code Document(s ) Reagin Ab 1:2 Normal (applies to Titer-RPR [facility] [Titer] in non-numeric Health System Serum by results) RPR Reagin Ab Reactive Abnormal (applies RPR. [facility] [Presence] to non-numeric Health System in Serum by results) RPR ID Date Data Source [id number] 07/18/2018 04:36:00 PM EST [facility] Name Value Range Interpretation Description Data Sup porting Code Source(s) Document(s ) Deprecated NO GROWTH Aerobic [facility] Bacteria Culture, Urine Health System identified in Urine by Aerobe culture ID Date Data Source [id number] 07/19/2018 04:19:53 PM EST [facility] Name Value Range Interpretation Description Data Sup porting Code Source(s) Document(s ) FTA,Ser ReactiveReference Abnormal FTA, Serum [facility] um Range: (applies to Health NonreactiveTest non-numeric System Performed at:[facility] - results) [facility], [place], [place] [address]QhxllhzqAndres Leon M.D. ID Date Data Source [id number] 03/04/2020 02:43:27 AM EDT [facility] Name Value Range Interpretation Description Data Sup porting Code Source(s) Document(s ) C.Trac Not Normal (applies C. [facility] homati DetectedReference to non-numeric Trachomatis Healt h sAmp Range: Not Detected results) Amp System N.Gono Not Normal (applies N. Gonorrhea [facility] rrheab DetectedReference to non-numeric by [facility] Health yLCR Range: Not results) System DetectedThis test was performed using the APTIMA COMBO2(R) Assay(GEN-PROBE(R)) .Please add the following message:For additional information, please refer tohttp://education. [employer] m/faq/XMX234(This link is being provided for informational/educa tionalpurposes only)Test Performed at:[facility] - [facility], [place], [place] [address]XroxnjedAndres Leon M.D. ID Date Data Source [id number] 03/04/2020 02:43:27 AM EDT [facility] Name Value Range Interpretation Description Data Source(s ) Supporting Code Document(s ) Reagin Ab 1:4 Normal (applies to Titer-RPR [facility] [Titer] in non-numeric Health System Serum by results) RPR Reagin Ab Reactive Abnormal (applies RPR. [facility] [Presence] to non-numeric Health System in Serum by results) RPR ID Date Data Source [id number] 03/04/2020 02:43:27 AM EDT [facility] Name Value Range Interpretation Description Data Sup porting Code Source(s) Document(s ) Color Yellow Normal (applies Color [facility] to non-numeric Health results) System Appearance of CLEAR Normal (applies Urine [facility] Urine to non-numeric Appearance Health results) System Specific gravity 1.019 Normal (applies Urine Specific [facility] of Urine to non-numeric [facility] results) System pH.. 5.0 Normal (applies pH.. [facility] {pH_unit to non-numeric Health s} results) System Glucose,UA NEG Normal (applies Glucose, UA [facility] to non-numeric Health results) System Protein NEG Normal (applies Protein [facility] [Mass/volume] in to non-numeric Health Serum or Plasma results) System BilirubinUrine NEG Normal (applies Bilirubin [facility] to non-numeric Urine Health results) System Urobilinogen < 2.0 Normal (applies Urobilinogen [facility] [Mass/volume] in to non-numeric [facility] Urine results) System Reference Range: Negative or <=2.0 Ketones NEG Normal (applies Ketones UA [facility] [Mass/volume] in to non-numeric Health S ystem Urine results) Nitrate+Nitrite Negative Normal (applies Nitrite [facility] [Mass/volume] in to non-numeric Health S ystem Unspecified specimen results) Leukocyte esterase NEG Normal (applies Leukocyte Fadia ase [facility] [Units/volume] in to non-numeric Concentration [facility] System Urine results) Leukocytes < 1 /HPF Normal (applies White Blood Cells [facility] patience [#/volume] in to non-numeric Health Syst em Unspecified specimen results) by Automated count RedBloodCells < 1 /HPF Normal (applies Red Blood Cells [facility] to non-numeric Health System results) Mucus RARE Normal (applies Mucus [facility] to non-numeric Health System results) UrineBlood NEG Normal (applies Urine Blood [facility] to non-numeric Health System results) ID Date Data Source [id number] 03/04/2020 02:43:27 AM EDT [facility] System Name Value Range Interpretation Description Data Sup porting Code Source(s) Document(s ) FTA,Ser ReactiveReference Abnormal FTA, Serum [facility] um Range: (applies to Health NonreactiveTest non-numeric System Performed at:[facility] - results) [facility] Leon M.D. Result Reporting|Telephone || 11/29/2018 at 5:42 PMCalled to:Tech Name:Dayana by:FEDERICA BALLESTEROS 11/29/2018 / 5:42 PM ID Date Data Source [id number] 03/04/2020 02:43:27 AM EDT [facility] Name Value Range Interpretation Description Data Sup porting Code Source(s) Document(s ) Leukocytes 7.2 Normal (applies WBC Count [facility] [#/volume] in {10^3_uL to non-numeric Health Unspecified } results) System specimen by Automated count Erythrocytes 5.64 Normal (applies RBC Count [facility] [#/volume] in {10^6_uL to non-numeric Health Blood by } results) System Automated count Hemoglobin 15.7 Normal (applies Hemoglobin [facility] [Mass/volume] in {gm/dL} to non-numeric Health Blood results) System Hematocrit 46.9 % Normal (applies Hematocrit [facility] [Volume to non-numeric Health Fraction] of results) System Blood Erythrocyte mean 83.2 fl Normal (applies MCV [facility] corpuscular to non-numeric Health volume [Entitic results) System volume] by Automated count Erythrocyte mean 27.8 pg Normal (applies MCH [facility] corpuscular to non-numeric Health hemoglobin results) System [Entitic mass] by Automated count Erythrocyte mean 33.5 Normal (applies MCHC [facility] corpuscular {gm/dL} to non-numeric Health hemoglobin results) System concentration [Mass/volume] by Automated count Erythrocyte 13.0 % Normal (applies RDW-CV [facility] distribution to non-numeric Health width [Entitic results) System volume] by Automated count Platelets 209 Normal (applies Platelet Count [facility] [#/volume] in {10^3_uL to non-numeric Health Plasma by } results) System Automated count Platelet mean 11.3 fl Normal (applies MPV [facility] volume [Entitic to non-numeric Health volume] in Blood results) System by Automated count Nucleated 0.0 Normal (applies NRBC % [facility] erythrocytes {/100_WB to non-numeric Health [#/volume] in C} results) System Body fluid NRBC# 0.00 Normal (applies NRBC # [facility] {10^3_uL to non-numeric Health } results) System Neutrophils/100 65.8 % Normal (applies Neutrophil % [facility] patience leukocytes in to non-numeric Health Blood by results) System Automated count Neutrophils 4.7 Normal (applies Neutrophil # [facility] [#/volume] in {10^3_uL to non-numeric Health Body fluid } results) System Lymphocytes 19.0 % Normal (applies Lymphocyte % [facility] [#/volume] in to non-numeric Health Blood by results) System Automated count Lymphocyte 1.4 Normal (applies Lymphocyte # [facility] percent {10^3_uL to non-numeric Health differential } results) System count (procedure) Monocytes/100 10.8 % Above high Monocyte % [facility] leukocytes in normal Health Blood System Monocytes 0.8 Normal (applies Monocyte # [facility] [#/volume] in {10^3_uL to non-numeric Health Blood by Manual } results) System count Eosinophils/100 3.1 % Normal (applies Eosinophil % [facility] patience leukocytes in to non-numeric Health Unspecified results) System specimen Eosinophils 0.22 Normal (applies Eosinophil # [facility] [#/volume] in {10^3_uL to non-numeric Health Blood } results) System Basophils/100 0.7 % Normal (applies Basophil % [facility] leukocytes in to non-numeric Health Unspecified results) System specimen by Manual count Basophils 0.05 Normal (applies Basophil # [facility] [#/volume] in {10^3_uL to non-numeric Health Blood by } results) System Automated count ImmatureGranuloc 0.04 Normal (applies Immature [facility] ytes# {10^3_uL to non-numeric Granulocytes # Health } results) System ImmatureGranuloc 0.6 % Normal (applies Immature [facility] ytes% to non-numeric Granulocytes % Health results) System ID Date Data Source [id number] 03/04/2020 02:43:27 AM EDT Jeanie grey System Name Value Range Interpretation Description Data Sup porting Code Source(s) Document(s ) Triglyceride 229 Above high normal Triglycerides, [facility] [Mass/volume] mg/dl Serum Health in Serum or System Plasma Optimal = < 100 mg/dLBoderline High = 15 0 - 199 mg/dLHigh = 200 - 499 mg/dLVery High = > 500 mg/dL Cholesterol 162 mg/dl Normal (applies Cholesterol, Serum [facility] [Mass/volume] in to non-numeric Health S ystem Serum or Plasma results) <200 mg/hj=[id number] mg/dl=border line>240 mg/dl=elevated Cholesterol in HDL 29.0 mg/dL Below low HDL Cholesterol, [facility] [Mass/volume] in normal Serum System Serum or Plasma Cholesterol in LDL 87.2 mg/dL Normal Low Density [facility] [Mass/volume] in (applies to Lipoprotein, System Serum or Plasma non-numeric Calculated results) OPTIMAL: LESS THAN 100 mg/dLNEAR OPTIMAL : 100 - 129 mg/dLBODERLINE HIGH: 130 - 150 mg/dL Cholesterol in VLDL 45.8 Normal (applies to VLDL, Serum [facility] [Mass/volume] in Serum non-numeric results) System or Plasma CHDRisk 5.59 Normal (applies to CHD Risk [facility] non-numeric results) System Lowest <3.8Low 3.9 - 4.7Moderate 4 .8 - 5.9High 6.0 - 6.9Highest >7.0 ID Date Data Source [id number] 03/04/2020 02:43:27 AM EDT [facility] System Name Value Range Interpretation Description Data Sup porting Code Source(s) Document(s ) Sodium 140 Normal (applies Sodium, Serum [facility] [Moles/volume] in mmol/L to non-numeric Health Serum or Plasma results) System Potassium 4.7 Normal (applies Potassium, [facility] [Mass/volume] in mmol/L to non-numeric Serum Health Serum or Plasma results) System Chloride 101 Normal (applies Chloride, [facility] [Moles/volume] in mmol/L to non-numeric Serum Health Serum or Plasma results) System Carbon dioxide, 29.9 Normal (applies CO2, Serum [facility] total mmol/L to non-numeric Health [Moles/volume] in results) System Serum or Plasma TotalProtein 7.4 Normal (applies Total Protein [facility] mg/dl to non-numeric Health results) System Glucose 95 Normal (applies Glucose, [facility] [Mass/volume] in mg/dL to non-numeric Serum Health Serum or Plasma results) System Urea nitrogen 14 Normal (applies Blood Urea [facility] [Mass/volume] in mg/dl to non-numeric Nitrogen, Health Serum or Plasma results) Serum System Creatinine 0.82 Normal (applies Creatinine, [facility] [Mass/volume] in mg/dl to non-numeric Serum Health Serum or Plasma results) System Alkaline 95 Normal (applies Alkaline [facility] phosphatase {IU/L} to non-numeric Phosphatase, Health isoenzymes results) Serum System [Enzymatic activity/volume] in Serum or Plasma by Heat stability Bilirubin.total 0.3 Normal (applies Bilirubin, [facility] [Mass/volume] in mg/dl to non-numeric Serum Total Health Serum or Plasma results) System DirectBilirubin 0.1 Normal (applies Direct [facility] mg/dl to non-numeric Bilirubin Health results) System Aspartate 26 Normal (applies Aspartate [facility] aminotransferase {IU/L} to non-numeric Transaminase, Heal th [Enzymatic results) Serum System activity/volume] in Serum or Plasma by With P-5'-P Albumin 4.8 Normal (applies Albumin, [facility] [Mass/volume] in {gm/dl} to non-numeric Serum Health Serum or Plasma results) System I.Phosphorus 4.2 Normal (applies I. Phosphorus [facility] mg/dl to non-numeric Health results) System Alanine 32 Normal (applies Alanine [facility] aminotransferase {IU/L} to non-numeric Aminotransfer Heal th [Enzymatic results) ase, Serum System activity/volume] in Serum or Plasma Calcium 9.8 Normal (applies Calcium, [facility] [Mass/volume] in mg/dl to non-numeric Total Serum Health Serum or Plasma results) System A/GRatio 1.85 Normal (applies A/G Ratio [facility] to non-numeric Health results) System Urate 6.9 Normal (applies Uric Acid, [facility] [Mass/volume] in mg/dl to non-numeric Serum Health Serum or Plasma results) System Anion gap in Serum 9.10 Normal (applies Anion Gap [facility] patience or Plasma mmol/L to non-numeric Health results) System Glomerular > 90 Normal (applies GFR [facility] filtration to non-numeric Health rate/1.73 sq results) System M.predicted [Volume Rate/Area] in Serum or Plasma by Creatinine-based formula (CKD-EPI) eGFR will provide clinicians with a more accurate indicator of renal function then the serum creatinine. The eGFR is automa tically calculated from an empiric formula (endorsed by the National Kidney Foundat ion) which incorporates age, sex, and race.Clinicians may notice surprisingly low GFR's with serum creatinine valueswithin normal range- particularly in elderly wo men (with low muscle mass).In the hospital setting, the eGFR should add an element of safety in drug dosing, in assessing the risk of IV contrast administration, and in assessing vascular risk.The NKF staging system is as follows:Normal: eGFR >90 with no kidney markersStage 1: eGFR >90 with kidney markers*Stage 2: eGFR 60- 89Stage 3: eGFR 30-59Stage 4: eGFR 15-29Stage 5: eGFR <15 (usually requir ing dialysis)*Markers include: Proteinuria, Hematuria, abnormal imaging-studies, or other blood or urine test abnormalities ID Date Data Source [id number] 03/04/2020 02:43:27 AM EDT [facility] grey System Name Value Range Interpretation Description Data Sup porting Code Source(s) Document(s ) Quantif NegativeNegative Normal (applies Quantiferon-T [facility] geraldine-TB test result. M. to non-numeric B Gold. Health Gold. tuberculosis results) System complex infectionunlikely. NIL 0.03 {IU/mL} Normal (applies NIL [facility] to non-numeric Health results) System Mitogen 7.95 {IU/mL} Normal (applies Mitogen-NIL [facility] -NIL to non-numeric Health results) System TB1-NIL 0.00 {IU/mL} Normal (applies TB1-NIL [facility] to non-numeric Health results) System TB2-NIL < 0.00 Normal (applies TB2-NIL [facility] to non-numeric Health results) System The Nil tube value reflects the backgrou nd interferongamma immune response of the patient's blood sample.This value has be en subtracted from the patient'sdisplayed TB and Mitogen results.Lower than expected results with the Mitogen tube prevent false-negative Quantiferon readings byde tecting a patient with a potential immunesuppressive condition and/or subop timal pre-analyticalspecimen handling.The TB1 Antigen tube is coated with theM. tuberc ulosis-specific antigens designed to elicitresponses from TB antigen primed C D4+ helperT-lymphocytes.The TB2 Antigen tube is coated with theM. tuberculosis-specif ic antigens designed to elicitresponses from TB antigen primed CD4+ helper and CD8+cy totoxic T-lymphocytes.For additional information, please refer tohttp://educa tion.[employer]/faq/204(This link is being provided for informational/educ ational purposes only.)Test Performed at:[facility] - [facility], [place], [place] [address]OtdajkneTawnya Leon M.D. ID Date Data Source [id number] 03/04/2020 02:43:27 AM EDT [facility] Name Value Range Interpretation Description Data Sup porting Code Source(s) Document(s ) T-HelperCD 37 Normal (applies T-[place] CD4+ [facility] 4+ to non-numeric Health System results) Message DNRTest Normal (applies Message [facility] Performed to non-numeric Health System at:[facility] - results) [facility], [place], [place] [address]AowultsBimal Leon M.D. LymphRel.C 1583 Normal (applies Lymph Rel. [facility] ount to non-numeric Count Health System results) HelperCD4+ 593 Normal (applies [place] CD4+ [facility] to non-numeric Health System results) ID Date Data Source [id number] 03/04/2020 02:43:27 AM EDT [facility] System Name Value Range Interpretation Description Data Sup porting Code Source(s) Document(s ) HepatitisCRati 0.03 {Ratio} Normal (applies Hepatitis C [facility] o to non-numeric Ratio Health results) System HepatitisCVira Non Normal (applies Hepatitis C [facility] lAntibody ReactiveReferen to non-numeric Viral Health ce Range: Non results) Antibody System Reactive ID Date Data Source [id number] 03/04/2020 02:43:27 AM EDT [facility] System Name Value Range Interpretation Description Data Sup porting Code Source(s) Document(s ) C.Trac Not Normal (applies C. [facility] homati DetectedReference to non-numeric Trachomatis Healt h sAmp Range: Not Detected results) Amp System N.Gono Not Normal (applies N. Gonorrhea [facility] rrheab DetectedReference to non-numeric by [facility] Health yLCR Range: Not results) System DetectedThis test was performed using the APTIMA COMBO2(R) Assay(GEN-PROBE(R)) .Please add the following message:For additional information, please refer tohttp://education. [employer] m/faq/VJS751(This link is being provided for informational/educa tionalpurposes only)Test Performed at:[facility] - [facility], [place], [place] [address]TvsbztmfTawnya Leon M.D. ID Date Data Source [id number] 03/04/2020 02:43:27 AM EDT [facility] Name Value Range Interpretation Description Data Source(s ) Supporting Code Document(s ) Reagin Ab Non-react Normal (applies to RPR. [facility] [Presence] felipa non-numeric Health System in Serum by results) RPR ID Date Data Source [id number] 03/04/2020 02:43:27 AM EDT [facility] System Name Value Range Interpretation Description Data Sup porting Code Source(s) Document(s ) T-HelperCD 48 Normal (applies T-[place] CD4+ [facility] 4+ to non-numeric Health System results) Message DNRTest Normal (applies Message [facility] Performed to non-numeric Health System at:[facility] - results) [facility], [place], [place] [address]ExvjyuwBimal Leon M.D. LymphRel.C 1296 Normal (applies Lymph Rel. [facility] ount to non-numeric Count Health System results) HelperCD4+ 616 Normal (applies [place] CD4+ [facility] to non-numeric Health System results) ID Date Data Source [id number] 03/04/2020 02:43:27 AM EDT [facility] System Name Value Range Interpretation Description Data Sup porting Code Source(s) Document(s ) N.GonorrhoeaeR Not Normal (applies N. [facility] NATMARectal DetectedReferen to non-numeric Gonorrhoeae Healt h ce Range: Not results) RNA TMA System DetectedThis Rectal test was performed using the APTIMA COMBO2(R)Assay (GEN-PROBE(R)). The analytical performance characteristics of thisassay have been determined by [place]. The modificationsha ve not been cleared or approved by the FDA. Thisassay has been validated pursuant to the CLIAregulations and is used for clinical purposes. Chlamydia Not Normal (applies C. [facility] trachomatis DetectedReferen to non-numeric Trachomatis Healt h rRNA ce Range: Not results) RNA, TMA System [Presence] in DetectedThis Rectal Anal by Probe test was and target performed amplification at:[employer] [address] [id number] Performed at:[facility] [address] [address]Fzyprpkdeepthi Carter M.D., Ph.D. ID Date Data Source [id number] 03/04/2020 02:43:27 AM EDT [facility] Name Value Range Interpretation Description Data Sup porting Code Source(s) Document(s ) Chlamydia Not Normal (applies C. [facility] trachomatis DetectedReferen to non-numeric Trachomatis Healt h rRNA ce Range: Not results) RNA [facility]MA System [Presence] in Detected Unspecified specimen by Probe and target amplification method Neisseria Not Normal (applies N. [facility] gonorrhoeae DetectedReferen to non-numeric Gonorrhoeae Healt h rRNA ce Range: Not results) RNA TMA System [Presence] in DetectedThis Unspecified test was specimen by performed using Probe and the APTIMA target COMBO2(R)Assay amplification (GEN-PROBE(R)). method The performance characteristics of this assay havebeen determined by [facility].Perfo rmance characteristics refer to the analyticalperfo rmance of the test.This test was performed at:[facility] [address] [id number] Performed at:[facility] [address] [address]Fnqranumaximiliano Carter M.D., Ph.D. ID Date Data Source [id number] 03/04/2020 02:43:27 AM EDT [facility] grey System Name Value Range Interpretation Description Data Sup porting Code Source(s) Document(s ) Sodium 138 Normal (applies Sodium, Serum [facility] [Moles/volume] in mmol/L to non-numeric Health Serum or Plasma results) System Potassium 4.4 Normal (applies Potassium, [facility] [Mass/volume] in mmol/L to non-numeric Serum Health Serum or Plasma results) System Chloride 100 Below low normal Chloride, [facility] [Moles/volume] in mmol/L Serum Health Serum or Plasma System Carbon dioxide, 28.7 Normal (applies CO2, Serum [facility] total mmol/L to non-numeric Health [Moles/volume] in results) System Serum or Plasma TotalProtein 7.4 Normal (applies Total Protein [facility] mg/dl to non-numeric Health results) System Glucose 95 Normal (applies Glucose, [facility] [Mass/volume] in mg/dL to non-numeric Serum Health Serum or Plasma results) System Urea nitrogen 14 Normal (applies Blood Urea [facility] [Mass/volume] in mg/dl to non-numeric Nitrogen, Health Serum or Plasma results) Serum System Creatinine 0.84 Normal (applies Creatinine, [facility] [Mass/volume] in mg/dl to non-numeric Serum Health Serum or Plasma results) System Alkaline 83 Normal (applies Alkaline [facility] phosphatase {IU/L} to non-numeric Phosphatase, Health isoenzymes results) Serum System [Enzymatic activity/volume] in Serum or Plasma by Heat stability Bilirubin.total 0.7 Normal (applies Bilirubin, [facility] [Mass/volume] in mg/dl to non-numeric Serum Total Health Serum or Plasma results) System DirectBilirubin 0.1 Normal (applies Direct [facility] mg/dl to non-numeric Bilirubin Health results) System Aspartate 24 Normal (applies Aspartate [facility] aminotransferase {IU/L} to non-numeric Transaminase, [facility]al [facility] [Enzymatic results) Serum System activity/volume] in Serum or Plasma by With P-5'-P Albumin 4.8 Normal (applies Albumin, [facility] [Mass/volume] in {gm/dl} to non-numeric Serum Health Serum or Plasma results) System I.Phosphorus 3.9 Normal (applies I. Phosphorus [facility] mg/dl to non-numeric Health results) System Alanine 25 Normal (applies Alanine [facility] aminotransferase {IU/L} to non-numeric Aminotransfer [facility] [Enzymatic results) ase, Serum System activity/volume] in Serum or Plasma Calcium 9.9 Normal (applies Calcium, [facility] [Mass/volume] in mg/dl to non-numeric Total Serum Health Serum or Plasma results) System A/GRatio 1.85 Normal (applies A/G Ratio [facility] to non-numeric Health results) System Urate 6.8 Normal (applies Uric Acid, [facility] [Mass/volume] in mg/dl to non-numeric Serum Health Serum or Plasma results) System Anion gap in Serum 9.30 Normal (applies Anion Gap [facility] or Plasma mmol/L to non-numeric Health results) System Glomerular > 90 Normal (applies GFR [facility] filtration to non-numeric Health rate/1.73 sq results) System M.predicted [Volume Rate/Area] in Serum or Plasma by Creatinine-based formula (CKD-EPI) eGFR will provide clinicians with a more accurate indicator of renal function then the serum creatinine. The eGFR is automa tically calculated from an empiric formula (endorsed by the [employer]) which incorporates age, sex, and race.Clinicians may notice surprisingly low GFR's with serum creatinine valueswithin normal range- particularly in elderly wo men (with low muscle mass).In the hospital setting, the eGFR should add an element of safety in drug dosing, in assessing the risk of IV contrast administration, and in assessing vascular risk.The NKF staging system is as follows:Normal: eGFR >90 with no kidney markersStage 1: eGFR >90 with kidney markers*Stage 2: eGFR 60- 89Stage 3: eGFR 30-59Stage 4: eGFR 15-29Stage 5: eGFR <15 (usually requir ing dialysis)*Markers include: Proteinuria, Hematuria, abnormal imaging-studies, or other blood or urine test abnormalities ID Date Data Source [id number] 03/04/2020 02:43:27 AM EDT Jeanie grey System Name Value Range Interpretation Description Data Sup porting Code Source(s) Document(s ) Leukocytes 6.5 Normal (applies WBC Count [facility] [#/volume] in {10^3_uL to non-numeric Health Unspecified } results) System specimen by Automated count Erythrocytes 5.02 Normal (applies RBC Count [facility] [#/volume] in {10^6_uL to non-numeric Health Blood by } results) System Automated count Hemoglobin 14.2 Normal (applies Hemoglobin [facility] [Mass/volume] in {gm/dL} to non-numeric Health Blood results) System Hematocrit 43.1 % Normal (applies Hematocrit [facility] [Volume to non-numeric Health Fraction] of results) System Blood Erythrocyte mean 85.9 fl Normal (applies MCV [facility] corpuscular to non-numeric Health volume [Entitic results) System volume] by Automated count Erythrocyte mean 28.3 pg Normal (applies MCH [facility] corpuscular to non-numeric Health hemoglobin results) System [Entitic mass] by Automated count Erythrocyte mean 32.9 Normal (applies MCHC [facility] corpuscular {gm/dL} to non-numeric Health hemoglobin results) System concentration [Mass/volume] by Automated count Erythrocyte 12.8 % Normal (applies RDW-CV [facility] distribution to non-numeric Health width [Entitic results) System volume] by Automated count Platelets 208 Normal (applies Platelet Count [facility] [#/volume] in {10^3_uL to non-numeric Health Plasma by } results) System Automated count Platelet mean 11.3 fl Normal (applies MPV [facility] volume [Entitic to non-numeric Health volume] in Blood results) System by Automated count Nucleated 0.0 Normal (applies NRBC % [facility] erythrocytes {/100_WB to non-numeric Health [#/volume] in C} results) System Body fluid NRBC# 0.00 Normal (applies NRBC # [facility] {10^3_uL to non-numeric Health } results) System Neutrophils/100 64.4 % Normal (applies Neutrophil % [facility] leukocytes in to non-numeric Health Blood by results) System Automated count Neutrophils 4.2 Normal (applies Neutrophil # [facility] [#/volume] in {10^3_uL to non-numeric Health Body fluid } results) System Lymphocytes 19.4 % Normal (applies Lymphocyte % [facility] [#/volume] in to non-numeric Health Blood by results) System Automated count Lymphocyte 1.3 Normal (applies Lymphocyte # [facility] percent {10^3_uL to non-numeric Health differential } results) System count (procedure) Monocytes/100 11.8 % Above high Monocyte % [facility] leukocytes in normal Health Blood System Monocytes 0.8 Normal (applies Monocyte # [facility] [#/volume] in {10^3_uL to non-numeric Health Blood by Manual } results) System count Eosinophils/100 2.6 % Normal (applies Eosinophil % [facility] leukocytes in to non-numeric Health Unspecified results) System specimen Eosinophils 0.17 Normal (applies Eosinophil # [facility] [#/volume] in {10^3_uL to non-numeric Health Blood } results) System Basophils/100 1.2 % Above high Basophil % [facility] leukocytes in normal Health Unspecified System specimen by Manual count Basophils 0.08 Normal (applies Basophil # [facility] [#/volume] in {10^3_uL to non-numeric Health Blood by } results) System Automated count ImmatureGranuloc 0.04 Normal (applies Immature [facility] ytes# {10^3_uL to non-numeric Granulocytes # Health } results) System ImmatureGranuloc 0.6 % Normal (applies Immature [facility] ytes% to non-numeric Granulocytes % Health results) System ID Date Data Source [id number] 03/04/2020 02:43:27 AM EDT [facility] Jose alth System Name Value Range Interpretation Description Data Sup porting Code Source(s) Document(s ) Anisocytosis Slight Normal (applies Anisocytosis [facility] [Presence] in to non-numeric Health Blood by results) System Automated count Basophil%. 1 % Normal (applies Basophil %. [facility] to non-numeric Health results) System Polys 73 % Normal (applies Polys [facility] to non-numeric Health results) System Lymphocyte%. 12 % Below low normal Lymphocyte %. [facility] Platelets Adequate Normal (applies Platelet Count [facility] [#/volume] in to non-numeric Estimate Health Blood by results) System Estimate Monocyte%. 14 % Above high Monocyte %. [facility] normal Health System ID Date Data Source [id number] 03/04/2020 02:43:27 AM EDT [facility] System Name Value Range Interpretation Description Data Sup porting Code Source(s) Document(s ) Leukocytes [#/volume] 11.4 Above high WBC Count [facility] in Unspecified {10^3_ normal Health specimen by Automated uL} System count Erythrocytes 5.38 Normal (applies RBC Count [facility] [#/volume] in Blood by {10^6_ to non-numeric He alth Automated count uL} results) System Hemoglobin 15.5 Normal (applies Hemoglobin [facility] [Mass/volume] in Blood {gm/dL to non-numeric He alth } results) System Hematocrit [Volume 44.0 % Normal (applies Hematocrit [facility] Fraction] of Blood to non-numeric Health results) System Erythrocyte mean 81.8 Normal (applies MCV [facility] corpuscular volume fl to non-numeric Health [Entitic volume] by results) System Automated count Erythrocyte mean 28.8 Normal (applies MCH [facility] corpuscular hemoglobin pg to non-numeric He alth [Entitic mass] by results) System Automated count Erythrocyte mean 35.2 Above high MCHC [facility] corpuscular hemoglobin {gm/dL normal Health concentration } System [Mass/volume] by Automated count Erythrocyte 12.3 % Normal (applies RDW-CV [facility] distribution width to non-numeric Health [Entitic volume] by results) System Automated count Platelets [#/volume] 198 Normal (applies Platelet [facility] in Plasma by Automated {10^3_ to non-numeric Count He alth count uL} results) System ImmaturePlateletFracti 5.40 % Normal (applies Immature [facility] on to non-numeric Platelet Health results) Fraction System Platelet mean volume 11.2 Normal (applies MPV [facility] [Entitic volume] in fl to non-numeric Healt h Blood by Automated results) System count Nucleated erythrocytes 0.0 Normal (applies NRBC % [facility] [#/volume] in Body {/100_ to non-numeric Health fluid WBC} results) System NRBC# 0.00 Normal (applies NRBC # [facility] {10^3_ to non-numeric Health uL} results) System Neutrophils/100 74.6 % Normal (applies Neutrophil % [facility] leukocytes in Blood by to non-numeric He alth Automated count results) System Neutrophils [#/volume] 8.5 Above high Neutrophil # [facility] in Body fluid {10^3_ normal Health uL} System Lymphocytes [#/volume] 8.7 % Below low Lymphocyte % [facility] in Blood by Automated normal Health count System Lymphocyte percent 1.0 Below low Lymphocyte # [facility] differential count {10^3_ normal Health (procedure) uL} System Monocytes/100 15.8 % Above high Monocyte % [facility] leukocytes in Blood normal Health System Monocytes [#/volume] 1.8 Normal (applies Monocyte # [facility] in Blood by Manual {10^3_ to non-numeric Health count uL} results) System Eosinophils/100 0.1 % Normal (applies Eosinophil % [facility] leukocytes in to non-numeric Health Unspecified specimen results) System Eosinophils [#/volume] 0.01 Normal (applies Eosinophil # [facility] in Blood {10^3_ to non-numeric Health uL} results) System Basophils/100 0.3 % Normal (applies Basophil % [facility] leukocytes in to non-numeric Health Unspecified specimen results) System by Manual count Basophils [#/volume] 0.04 Normal (applies Basophil # [facility] in Blood by Automated {10^3_ to non-numeric Hea lth count uL} results) System ImmatureGranulocytes# 0.06 Normal (applies Immature [facility] {10^3_ to non-numeric Granulocytes Health uL} results) # System ImmatureGranulocytes% 0.5 % Normal (applies Immature [facility] to non-numeric Granulocytes Health results) % System ID Date Data Source [id number] 03/04/2020 02:43:27 AM EDT [facility] System Name Value Range Interpretation Description Data Sup porting Code Source(s) Document(s ) Sodium 137 Normal (applies Sodium, Serum [facility] [Moles/volume] in mmol/L to non-numeric Health Serum or Plasma results) System Potassium 3.6 Normal (applies Potassium, [facility] [Mass/volume] in mmol/L to non-numeric Serum Health Serum or Plasma results) System Chloride 102 Normal (applies Chloride, [facility] [Moles/volume] in mmol/L to non-numeric Serum Health Serum or Plasma results) System Carbon dioxide, 19.9 Below low normal CO2, Serum [facility] total mmol/L [facility] [Moles/volume] in System Serum or Plasma TotalProtein 7.7 Normal (applies Total Protein [facility] mg/dl to non-numeric Health results) System Glucose 102 Normal (applies Glucose, [facility] [Mass/volume] in mg/dL to non-numeric Serum Health Serum or Plasma results) System Urea nitrogen 14 Normal (applies Blood Urea [facility] [Mass/volume] in mg/dl to non-numeric Nitrogen, Health Serum or Plasma results) Serum System Creatinine 0.92 Normal (applies Creatinine, [facility] [Mass/volume] in mg/dl to non-numeric Serum Health Serum or Plasma results) System Alkaline 87 Normal (applies Alkaline [facility] phosphatase {IU/L} to non-numeric Phosphatase, Health isoenzymes results) Serum System [Enzymatic activity/volume] in Serum or Plasma by Heat stability Bilirubin.total 1.0 Normal (applies Bilirubin, [facility] [Mass/volume] in mg/dl to non-numeric Serum Total Health Serum or Plasma results) System DirectBilirubin 0.2 Normal (applies Direct [facility] mg/dl to non-numeric Bilirubin Health results) System Aspartate 123 Above high Aspartate [facility] aminotransferase {IU/L} normal Transaminase, Health [Enzymatic Serum System activity/volume] in Serum or Plasma by With P-5'-P Albumin 5.1 Normal (applies Albumin, [facility] [Mass/volume] in {gm/dl} to non-numeric Serum Health Serum or Plasma results) System I.Phosphorus 1.0 Below low normal I. Phosphorus [facility] mg/dl [facility] System Alanine 46 Above high Alanine [facility] aminotransferase {IU/L} normal Aminotransfer Health [Enzymatic ase, Serum System activity/volume] in Serum or Plasma Calcium 10.2 Normal (applies Calcium, [facility] [Mass/volume] in mg/dl to non-numeric Total Serum Health Serum or Plasma results) System A/GRatio 1.96 Normal (applies A/G Ratio [facility] to non-numeric Health results) System Urate 10.9 Above high Uric Acid, [facility] [Mass/volume] in mg/dl normal Serum Health Serum or Plasma System Anion gap in Serum 15.10 Normal (applies Anion Gap [facility] or Plasma mmol/L to non-numeric Health results) System Glomerular > 90 Normal (applies GFR [facility] filtration to non-numeric Health rate/1.73 sq results) System M.predicted [Volume Rate/Area] in Serum or Plasma by Creatinine-based formula (CKD-EPI) eGFR will provide clinicians with a more accurate indicator of renal function then the serum creatinine. The eGFR is automa tically calculated from an empiric formula (endorsed by the [employer]) which incorporates age, sex, and race.Clinicians may notice surprisingly low GFR's with serum creatinine valueswithin normal range- particularly in elderly wo men (with low muscle mass).In the hospital setting, the eGFR should add an element of safety in drug dosing, in assessing the risk of IV contrast administration, and in assessing vascular risk.The NKF staging system is as follows:Normal: eGFR >90 with no kidney markersStage 1: eGFR >90 with kidney markers*Stage 2: eGFR 60- 89Stage 3: eGFR 30-59Stage 4: eGFR 15-29Stage 5: eGFR <15 (usually requir ing dialysis)*Markers include: Proteinuria, Hematuria, abnormal imaging-studies, or other blood or urine test abnormalities ID Date Data Source [id number] 03/04/2020 02:43:27 AM EDT [facility] System Name Value Range Interpretation Description Data Sup porting Code Source(s) Document(s ) Influenza virus Negative Normal (applies Flu A Viral [facility] A RNA [Presence] to non-numeric RNA Health in Unspecified results) System specimen by Probe and target amplification method Influenza virus Negative Normal (applies Flu B Viral [facility] B RNA [Presence] to non-numeric RNA Health in Unspecified results) System specimen by Probe and target amplification method ID Date Data Source [id number] 03/04/2020 02:43:27 AM EDT [facility] System Name Value Range Interpretation Description Data Sup porting Code Source(s) Document(s ) Leukocytes 6.7 Normal (applies WBC Count [facility] [#/volume] in {10^3_uL to non-numeric Health Unspecified } results) System specimen by Automated count Erythrocytes 4.71 Normal (applies RBC Count [facility] [#/volume] in {10^6_uL to non-numeric Health Blood by } results) System Automated count Hemoglobin 13.6 Below low normal Hemoglobin [facility] [Mass/volume] in {gm/dL} Health Blood System Hematocrit 40.6 % Below low normal Hematocrit [facility] [Volume Health Fraction] of System Blood Erythrocyte mean 86.2 fl Normal (applies MCV [facility] corpuscular to non-numeric Health volume [Entitic results) System volume] by Automated count Erythrocyte mean 28.9 pg Normal (applies MCH [facility] corpuscular to non-numeric Health hemoglobin results) System [Entitic mass] by Automated count Erythrocyte mean 33.5 Normal (applies MCHC [facility] corpuscular {gm/dL} to non-numeric Health hemoglobin results) System concentration [Mass/volume] by Automated count Erythrocyte 11.9 % Normal (applies RDW-CV [facility] distribution to non-numeric Health width [Entitic results) System volume] by Automated count Platelets 178 Normal (applies Platelet Count [facility] [#/volume] in {10^3_uL to non-numeric Health Plasma by } results) System Automated count Platelet mean 10.9 fl Normal (applies MPV [facility] volume [Entitic to non-numeric Health volume] in Blood results) System by Automated count Nucleated 0.0 Normal (applies NRBC % [facility] erythrocytes {/100_WB to non-numeric Health [#/volume] in C} results) System Body fluid NRBC# 0.00 Normal (applies NRBC # [facility] {10^3_uL to non-numeric Health } results) System Neutrophils/100 73.0 % Normal (applies Neutrophil % [facility] leukocytes in to non-numeric Health Blood by results) System Automated count Neutrophils 4.9 Normal (applies Neutrophil # [facility] [#/volume] in {10^3_uL to non-numeric Health Body fluid } results) System Lymphocytes 12.9 % Below low normal Lymphocyte % [facility] [#/volume] in Health Blood by System Automated count Lymphocyte 0.9 Below low normal Lymphocyte # [facility] percent {10^3_uL Health differential } System count (procedure) Monocytes/100 11.7 % Above high Monocyte % [facility] leukocytes in normal Health Blood System Monocytes 0.8 Normal (applies Monocyte # [facility] [#/volume] in {10^3_uL to non-numeric Health Blood by Manual } results) System count Eosinophils/100 1.5 % Normal (applies Eosinophil % [facility] leukocytes in to non-numeric Health Unspecified results) System specimen Eosinophils 0.10 Normal (applies Eosinophil # [facility] [#/volume] in {10^3_uL to non-numeric Health Blood } results) System Basophils/100 0.6 % Normal (applies Basophil % [facility] leukocytes in to non-numeric Health Unspecified results) System specimen by Manual count Basophils 0.04 Normal (applies Basophil # [facility] [#/volume] in {10^3_uL to non-numeric Health Blood by } results) System Automated count ImmatureGranuloc 0.02 Normal (applies Immature [facility] ytes# {10^3_uL to non-numeric Granulocytes # Health } results) System ImmatureGranuloc 0.3 % Normal (applies Immature [facility] ytes% to non-numeric Granulocytes % Health results) System ID Date Data Source [id number] 03/04/2020 02:43:27 AM EDT [facility] System Name Value Range Interpretation Description Data Sup porting Code Source(s) Document(s ) Thyrotropin 0.982 Normal (applies Thyroid [facility] [Mass/volume] {mIU/mL} to non-numeric Stimulating Health Sy stem in Serum or results) Hormone, Serum Plasma ID Date Data Source [id number] 03/04/2020 02:43:27 AM EDT [facility] System Name Value Range Interpretation Description Data Sup porting Code Source(s) Document(s ) TroponinIQuantitative 0.01 Normal (applies Troponin I [facility] ng/ml to non-numeric Quantitative Health results) System Detection of a rise and/or fall of cardi ac troponin I above the cut-off of 0.03 ng/mL is consistent with myocardial infarction in the appropriate clinical setting. With the use of lower cut-offs, testing of se rial samples is required for diagnosis. ID Date Data Source [id number] 03/04/2020 02:43:27 AM EDT [facility] System Name Value Range Interpretation Description Data Sup porting Code Source(s) Document(s ) Sodium 139 Normal (applies Sodium, Serum [facility] [Moles/volume] in mmol/L to non-numeric Health Serum or Plasma results) System Potassium 3.7 Normal (applies Potassium, [facility] [Mass/volume] in mmol/L to non-numeric Serum Health Serum or Plasma results) System Chloride 103 Normal (applies Chloride, [facility] [Moles/volume] in mmol/L to non-numeric Serum Health Serum or Plasma results) System Carbon dioxide, 26.8 Normal (applies CO2, Serum [facility] total mmol/L to non-numeric Health [Moles/volume] in results) System Serum or Plasma TotalProtein 6.5 Normal (applies Total Protein [facility] mg/dl to non-numeric Health results) System Glucose 102 Normal (applies Glucose, [facility] [Mass/volume] in mg/dL to non-numeric Serum Health Serum or Plasma results) System Urea nitrogen 9 mg/dl Normal (applies Blood Urea [facility] [Mass/volume] in to non-numeric Nitrogen, Health Serum or Plasma results) Serum System Creatinine 0.76 Normal (applies Creatinine, [facility] [Mass/volume] in mg/dl to non-numeric Serum Health Serum or Plasma results) System Alkaline 69 Normal (applies Alkaline [facility] phosphatase {IU/L} to non-numeric Phosphatase, Health isoenzymes results) Serum System [Enzymatic activity/volume] in Serum or Plasma by Heat stability Bilirubin.total 0.4 Normal (applies Bilirubin, [facility] [Mass/volume] in mg/dl to non-numeric Serum Total Health Serum or Plasma results) System DirectBilirubin 0.1 Normal (applies Direct [facility] mg/dl to non-numeric Bilirubin Health results) System Aspartate 21 Normal (applies Aspartate [facility] aminotransferase {IU/L} to non-numeric Transaminase, Heal th [Enzymatic results) Serum System activity/volume] in Serum or Plasma by With P-5'-P Albumin 4.5 Normal (applies Albumin, [facility] [Mass/volume] in {gm/dl} to non-numeric Serum Health Serum or Plasma results) System I.Phosphorus 3.0 Normal (applies I. Phosphorus [facility] mg/dl to non-numeric Health results) System Alanine 29 Normal (applies Alanine [facility] aminotransferase {IU/L} to non-numeric Aminotransfer Heal th [Enzymatic results) ase, Serum System activity/volume] in Serum or Plasma Calcium 9.5 Normal (applies Calcium, [facility] [Mass/volume] in mg/dl to non-numeric Total Serum Health Serum or Plasma results) System A/GRatio 2.25 Normal (applies A/G Ratio [facility] to non-numeric Health results) System Urate 7.5 Normal (applies Uric Acid, [facility] [Mass/volume] in mg/dl to non-numeric Serum Health Serum or Plasma results) System Anion gap in Serum 9.20 Normal (applies Anion Gap [facility] or Plasma mmol/L to non-numeric Health results) System Glomerular > 90 Normal (applies GFR [facility] filtration to non-numeric Health rate/1.73 sq results) System M.predicted [Volume Rate/Area] in Serum or Plasma by Creatinine-based formula (CKD-EPI) eGFR will provide clinicians with a more accurate indicator of renal function then the serum creatinine. The eGFR is automa tically calculated from an empiric formula (endorsed by the [employer]) which incorporates age, sex, and race.Clinicians may notice surprisingly low GFR's with serum creatinine valueswithin normal range- particularly in elderly wo men (with low muscle mass).In the hospital setting, the eGFR should add an element of safety in drug dosing, in assessing the risk of IV contrast administration, and in assessing vascular risk.The NKF staging system is as follows:Normal: eGFR >90 with no kidney markersStage 1: eGFR >90 with kidney markers*Stage 2: eGFR 60- 89Stage 3: eGFR 30-59Stage 4: eGFR 15-29Stage 5: eGFR <15 (usually requir ing dialysis)*Markers include: Proteinuria, Hematuria, abnormal imaging-studies, or other blood or urine test abnormalities ID Date Data Source [id number] 03/04/2020 02:43:27 AM EDT Jeanie grey System Name Value Range Interpretation Description Data Sup porting Code Source(s) Document(s ) Color Colorless Normal (applies Color [facility] to non-numeric Health results) System Appearance of CLEAR Normal (applies Urine [facility] Urine to non-numeric Appearance Health results) System Specific gravity 1.002 Normal (applies Urine [facility] of Urine to non-numeric Specific Health results) [place] System pH.. 7.0 Normal (applies pH.. [facility] {pH_units} to non-numeric Health results) System Glucose,UA NEG Normal (applies Glucose, UA [facility] to non-numeric Health results) System Protein NEG Normal (applies Protein [facility] [Mass/volume] in to non-numeric Health Serum or Plasma results) System BilirubinUrine NEG Normal (applies Bilirubin [facility] to non-numeric Urine Health results) System Urobilinogen < 2.0 Normal (applies Urobilinogen [facility] [Mass/volume] in to non-numeric UA Health Urine results) System Reference Range: Negative or <=2.0 Ketones NEG Normal (applies Ketones UA [facility] [Mass/volume] in to non-numeric Health S ystem Urine results) Nitrate+Nitrite Negative Normal (applies Nitrite [facility] [Mass/volume] in to non-numeric Health S ystem Unspecified specimen results) Leukocyte esterase NEG Normal (applies Leukocyte Fadia ase [facility] [Units/volume] in to non-numeric Concentration Hea lth System Urine results) Leukocytes < 1 /HPF Normal (applies White Blood Cells [facility] [#/volume] in to non-numeric Health Syst em Unspecified specimen results) by Automated count RedBloodCells 1 {/HPF} Normal (applies Red Blood Cells [facility] to non-numeric Health System results) Epithelial cells < 1 /HPF Normal (applies Epithelial Cells [facility] [Presence] in to non-numeric Health Syst em Unspecified specimen results) by Wet preparation Mucus RARE Normal (applies Mucus [facility] to non-numeric Health System results) UrineBlood NEG Normal (applies Urine Blood [facility] to non-numeric [facility] System results) ID Date Data Source [id number] 03/04/2020 02:43:27 AM EDT [facility] Name Value Range Interpretation Description Data Sup porting Code Source(s) Document(s ) C.Trac Not Normal (applies C. [facility] homati DetectedReference to non-numeric [facility] sAmp Range: Not Detected results) Amp System N.Gono Not Normal (applies N. Gonorrhea [facility] rrheab DetectedReference to non-numeric by [facility] Health yLCR Range: Not results) System DetectedThis test was performed using the APTIMA COMBO2(R) Assay(GEN-PROBE(R)) .For additional information, please refer [email or web address](This link is being provided for informational/educa tijimy only)Test Performed at:[facility] [employer], [place], [place] [address]OzupmxsqAndres Leon M.D. ID Date Data Source [id number] 04/26/2016 03:49:00 PM EST [facility] Name Value Range Interpretation Description Data Sup porting Code Source(s) Document(s ) Deprecated NO GROWTH Aerobic [facility] Bacteria Culture, Urine Health System identified in Urine by Aerobe culture ID Date Data Source [id number] 04/26/2016 03:49:00 PM EST [facility] Name Value Range Interpretation Description Data Sup porting Code Source(s) Document(s ) TotalB-CD1 3 {Percent} Below low normal Total B-CD19 [facility] TotalT-CD3 63 Normal (applies Total T-CD3 [facility] to non-numeric [facility] System results) T-HelperCD 33 Normal (applies T-[place] CD4+ [facility] 4+ to non-numeric [facility] System results) TSuppresso 27 Normal (applies T Suppressor [facility] rCD8+ to non-numeric CD8+ Health System results) [place]/Sup 1.26 Normal (applies [place]/Suppres [facility] pressor to non-numeric sor Health System results) Message DNRTest Normal (applies Message [facility] Performed to non-numeric Health System at:[facility] - results) [facility], [place], [place] [address]Bimal Leon M.D. LymphRel.C 937 Normal (applies Lymph Rel. [facility] ount to non-numeric Count Health System results) CD19 33 Below low normal CD19 [facility] {Cells/mcL} [facility] System CD3 574 Below low normal CD3 [facility] {Cells/mcL} Health System HelperCD4+ 298 Below low normal [place] CD4+ [facility] {Cells/mcL} [facility] System SuppressCD 237 Normal (applies Suppress CD8+ [facility] 8+ to non-numeric Health System results) ID Date Data Source [id number] 04/26/2016 03:49:00 PM EST [facility] Name Value Range Interpretation Description Data Sup porting Code Source(s) Document(s ) C.Trac Not Normal (applies C. [facility] homati DetectedReference to non-numeric [facility] sAmp Range: Not Detected results) Amp System N.Gono Not Normal (applies N. Gonorrhea [facility] rrheab DetectedReference to non-numeric by [facility] Health yLCR Range: Not results) System DetectedThis test was performed using the APTIMA COMBO2(R) Assay(GEN-PROBE(R)) .Test Performed at:[facility] [employer], [place], [place] [address]PqxomxbbAndres Leon M.D. ID Date Data Source [id number] 04/26/2016 03:49:00 PM EST [facility] Name Value Range Interpretation Description Data Sup porting Code Source(s) Document(s ) Color YELLOW Normal (applies Color [facility] to non-numeric Health results) System Appearance of CLEAR Normal (applies Urine [facility] Urine to non-numeric Appearance Health results) System Specific gravity < 1.005 Normal (applies Urine Specific Mo [facility] of Urine to non-numeric [facility] results) System pH.. 6.0 Normal (applies pH.. [facility] {pH_units} to non-numeric Health results) System Glucose,UA NEGATIVE Normal (applies Glucose, UA [facility] to non-numeric Health results) System Protein NEGATIVE Normal (applies Protein [facility] [Mass/volume] in to non-numeric Health Serum or Plasma results) System BilirubinUrine NEGATIVE Normal (applies Bilirubin [facility] to non-numeric Urine Health results) System Urobilinogen 0.2 mg/dL Normal (applies Urobilinogen [facility] [Mass/volume] in to non-numeric UA Health Urine results) System Ketones NEGATIVE Normal (applies Ketones UA [facility] [Mass/volume] in to non-numeric Health Urine results) System Nitrate+Nitrite NEGATIVE Normal (applies Nitrite [facility] [Mass/volume] in to non-numeric Health Unspecified results) System specimen Leukocyte NEGATIVE Normal (applies Leukocyte [facility] esterase to non-numeric Esterase Health [Units/volume] results) Concentration System in Urine Leukocytes 41 {/HPF} Normal (applies White Blood [facility] [#/volume] in to non-numeric Cells Health Unspecified results) System specimen by Automated count RedBloodCells 3 {/HPF} Normal (applies Red Blood [facility] to non-numeric Cells Health results) System UrineBlood TRACE-LYSE Abnormal Urine Blood [facility] D (applies to Health non-numeric System results) ID Date Data Source [id number] 04/26/2016 03:49:00 PM EST [facility] Name Value Range Interpretation Description Data Sup porting Code Source(s) Document(s ) Basophil%. 1 % Normal (applies Basophil %. [facility] to non-numeric [facility] System results) Polys 61 % Normal (applies Polys [facility] to non-numeric [facility] System results) Lymphocyte%. 19 % Normal (applies Lymphocyte %. [facility] to non-numeric [facility] results) Platelets Adequate Normal (applies Platelet Count [facility] [#/volume] to non-numeric Estimate Health System in Blood by results) Estimate Monocyte%. 17 % Normal (applies Monocyte %. [facility] to non-numeric [facility] System results) Eosinophils% 2 % Normal (applies Eosinophils %. [facility] . to non-numeric [facility] System results) NORM Yes Normal (applies NORM [facility] to non-numeric [facility] System results) ID Date Data Source [id number] 04/26/2016 03:49:00 PM EST [facility] Name Value Range Interpretation Description Data Sup porting Code Source(s) Document(s ) Leukocytes 4.7 Below low normal WBC Count [facility] [#/volume] in {10^3_uL Health Unspecified } System specimen by Automated count Erythrocytes 5.20 Normal (applies RBC Count [facility] [#/volume] in {10^6_uL to non-numeric Health Blood by } results) System Automated count Hemoglobin 15.2 Normal (applies Hemoglobin [facility] [Mass/volume] in {gm/dL} to non-numeric Health Blood results) System Hematocrit 45.0 % Normal (applies Hematocrit [facility] [Volume to non-numeric Health Fraction] of results) System Blood Erythrocyte mean 86.5 fl Normal (applies MCV [facility] corpuscular to non-numeric Health volume [Entitic results) System volume] by Automated count Erythrocyte mean 29.2 pg Normal (applies MCH [facility] corpuscular to non-numeric Health hemoglobin results) System [Entitic mass] by Automated count Erythrocyte mean 33.8 Normal (applies MCHC [facility] corpuscular {gm/dL} to non-numeric Health hemoglobin results) System concentration [Mass/volume] by Automated count Erythrocyte 13.5 % Normal (applies RDW-CV [facility] distribution to non-numeric Health width [Entitic results) System volume] by Automated count Platelets 225 Normal (applies Platelet [facility] [#/volume] in {10^3_uL to non-numeric Count Health Plasma by } results) System Automated count Platelet mean 11.7 fl Above high normal MPV [facility] volume [Entitic Health volume] in Blood System by Automated count Monocytes 0.8 Normal (applies Monocyte # [facility] [#/volume] in {10^3_uL to non-numeric Health Blood by Manual } results) System count Eosinophils 0.14 Normal (applies Eosinophil # [facility] [#/volume] in {10^3_uL to non-numeric Health Blood } results) System Neutrophils 2.7 Normal (applies Neutrophil # [facility] [#/volume] in {10^3_uL to non-numeric Health Body fluid } results) System Basophils 0.04 Normal (applies Basophil # [facility] [#/volume] in {10^3_uL to non-numeric Health Blood by } results) System Automated count Lymphocyte 1.0 Below low normal Lymphocyte # [facility] percent {10^3_uL Health differential } System count (procedure) Neutrophils/100 58.3 % Normal (applies Neutrophil % [place] patience leukocytes in to non-numeric Health Blood by results) System Automated count Monocytes/100 17.1 % Normal (applies Monocyte % [facility] leukocytes in to non-numeric Health Blood results) System Eosinophils/100 3.0 % Normal (applies Eosinophil % [place] patience leukocytes in to non-numeric Health Unspecified results) System specimen Basophils/100 0.9 % Normal (applies Basophil % [facility] leukocytes in to non-numeric Health Unspecified results) System specimen by Manual count Lymphocytes 20.7 % Below low normal Lymphocyte % [facility] [#/volume] in Health Blood by System Automated count ID Date Data Source [id number] 04/26/2016 03:49:00 PM EST [facility] Name Value Range Interpretation Description Data Sup porting Code Source(s) Document(s ) Sodium 136 Below low normal Sodium, Serum [facility] [Moles/volume] in mmol/L Health Serum or Plasma System Potassium 4.0 Normal (applies Potassium, [facility] [Mass/volume] in mmol/L to non-numeric Serum Health Serum or Plasma results) System Chloride 101 Normal (applies Chloride, [facility] [Moles/volume] in mmol/L to non-numeric Serum Health Serum or Plasma results) System Carbon dioxide, 24.0 Normal (applies CO2, Serum [facility] total mmol/L to non-numeric Health [Moles/volume] in results) System Serum or Plasma TotalProtein 7.6 Normal (applies Total Protein [facility] mg/dl to non-numeric Health results) System Glucose 91 Normal (applies Glucose, [facility] [Mass/volume] in mg/dL to non-numeric Serum Health Serum or Plasma results) System Urea nitrogen 8 mg/dl Below low normal Blood Urea [facility] [Mass/volume] in Nitrogen, Health Serum or Plasma Serum System Creatinine 0.80 Normal (applies Creatinine, [facility] [Mass/volume] in mg/dl to non-numeric Serum Health Serum or Plasma results) System Alkaline 98 Normal (applies Alkaline [facility] phosphatase {IU/L} to non-numeric Phosphatase, Health isoenzymes results) Serum System [Enzymatic activity/volume] in Serum or Plasma by Heat stability Bilirubin.total 0.4 Normal (applies Bilirubin, [facility] [Mass/volume] in mg/dl to non-numeric Serum Total Health Serum or Plasma results) System DirectBilirubin 0.2 Normal (applies Direct [facility] mg/dl to non-numeric Bilirubin Health results) System Aspartate 34 Normal (applies Aspartate [facility] aminotransferase {IU/L} to non-numeric Transaminase, Heal th [Enzymatic results) Serum System activity/volume] in Serum or Plasma by With P-5'-P Albumin 4.3 Normal (applies Albumin, [facility] [Mass/volume] in {gm/dl} to non-numeric Serum Health Serum or Plasma results) System I.Phosphorus 3.7 Normal (applies I. Phosphorus [facility] mg/dl to non-numeric Health results) System Alanine 38 Normal (applies Alanine [facility] aminotransferase {IU/L} to non-numeric Aminotransfer Heal th [Enzymatic results) ase, Serum System activity/volume] in Serum or Plasma Calcium 9.1 Normal (applies Calcium, [facility] [Mass/volume] in mg/dl to non-numeric Total Serum Health Serum or Plasma results) System A/GRatio 1.30 Normal (applies A/G Ratio [facility] to non-numeric Health results) System Urate 7.3 Normal (applies Uric Acid, [facility] [Mass/volume] in mg/dl to non-numeric Serum Health Serum or Plasma results) System Anion gap in Serum 11.00 Normal (applies Anion Gap [facility] patience or Plasma mmol/L to non-numeric Health results) System Glomerular > 90 Normal (applies GFR [facility] filtration to non-numeric Health rate/1.73 sq results) System M.predicted [Volume Rate/Area] in Serum or Plasma by Creatinine-based formula (CKD-EPI) eGFR will provide clinicians with a more accurate indicator of renal function then the serum creatinine. The eGFR is automa tically calculated from an empiric formula (endorsed by the National Kid[employer] ion) which incorporates age, sex, and race.Clinicians may notice surprisingly low GFR's with serum creatinine valueswithin normal range- particularly in elderly wo men (with low muscle mass).In the hospital setting, the eGFR should add an element of safety in drug dosing, in assessing the risk of IV contrast administration, and in assessing vascular risk.The NKF staging system is as follows:Normal: eGFR >90 with no kidney markersStage 1: eGFR >90 with kidney markers*Stage 2: eGFR 60- 89Stage 3: eGFR 30-59Stage 4: eGFR 15-29Stage 5: eGFR <15 (usually requir ing dialysis)*Markers include: Proteinuria, Hematuria, abnormal imaging-studies, or other blood or urine test abnormalities ID Date Data Source [id number] 04/26/2016 03:49:00 PM EST [facility] Name Value Range Interpretation Description Data Sup porting Code Source(s) Document(s ) Creatine 655 Above high normal Creatine [facility] kinase.MB {IU/L} Kinase, Serum Health System [Mass/volume ] in Serum or Plasma ID Date Data Source [id number] 04/26/2016 03:49:00 PM EST [facility] Name Value Range Interpretation Description Data Source(s ) Supporting Code Document(s ) Reagin Ab 1:4 Normal (applies to Titer-RPR [facility] [Titer] in non-numeric Health System Serum by results) RPR Reagin Ab Reactive Abnormal (applies RPR. [facility] [Presence] to non-numeric Health System in Serum by results) RPR ID Date Data Source [id number] 04/27/2016 04:37:35 PM EST [facility] Name Value Range Interpretation Description Data Sup porting Code Source(s) Document(s ) FTA,Ser ReactiveReference Abnormal FTA, Serum [facility] um Range: (applies to Health NonreactiveTest non-numeric System Performed at:[facility] - results) [facility], [place] [id number] Leon M.D. Result Reporting|Telephone |[facility] for Dr. Arthur|04/28/2016 at 3:01 PMCalled to:[facility] for Dr. Markham Name:[place] ck by:Shey106/28/2015 / 2:59 PM ID Date Data Source [id number] 07/26/2016 01:57:00 PM EST [facility] Name Value Range Interpretation Description Data Source(s ) Supporting Code Document(s ) FTA,Seru Cancelled FTA, Serum [facility] m wrong order Health System ID Date Data Source [id number] 07/26/2016 01:57:00 PM EST [facility] Name Value Range Interpretation Description Data Source(s ) Supporting Code Document(s ) Reagin Ab 1:1 Normal (applies to Titer-RPR [facility] [Titer] in non-numeric Health System Serum by results) RPR Reagin Ab Reactive Abnormal (applies RPR. [facility] [Presence] to non-numeric Health System in Serum by results) RPR ID Date Data Source [id number] 03/07/2015 02:58:00 PM EDT [facility] Name Value Range Interpretation Description Data Sup porting Code Source(s) Document(s ) Creatine 782 Above high normal Creatine [facility] kinase.MB {IU/L} Kinase, Serum Health System [Mass/volume ] in Serum or Plasma ID Date Data Source [id number] 05/12/2015 03:07:00 PM EST [facility] Name Value Range Interpretation Code Description Data Lexy rce(s) Supporting Document(s ) FTA,Serum Reactive Normal (applies to FTA, Serum [facility] non-numeric Health System results) Result Reporting|Telephone|DR. ARTHUR| 05/14/2015 at 9:03 AMCalled to: DR. Markham Name: BTReadback by: DR. MARTÍNEZ05/14/2015 / 9:03 AM Reference Range: Non Reactive ID Date Data Source [id number] 05/12/2015 03:07:00 PM EST [facility] Name Value Range Interpretation Description Data Sup porting Code Source(s) Document(s ) TotalB-CD1 2 {Percent} Below low normal Total B-CD19 [facility] TotalT-CD3 69 Normal (applies Total T-CD3 [facility] to non-numeric [facility] System results) T-HelperCD 39 Normal (applies T-[place] CD4+ [facility] 4+ to non-numeric [facility] System results) TSuppresso 25 Normal (applies T Suppressor [facility] rCD8+ to non-numeric CD8+ Health System results) [place]/Sup 1.59 Normal (applies [place]/Suppres [facility] pressor to non-numeric sor Health System results) Message DNR Test Normal (applies Message [facility] Performed to non-numeric Health System at: [facility] - results) [facility], [place] [address] Andres Leon M.D. LymphRel.C 895 Normal (applies Lymph Rel. [facility] ount to non-numeric Count Health System results) CD19 < 20 Below low normal CD19 [facility] CD3 628 Below low normal CD3 [facility] {Cells/mcL} Health System HelperCD4+ 358 Below low normal [place] CD4+ [facility] {Cells/mcL} [facility] System SuppressCD 226 Normal (applies Suppress CD8+ [facility] 8+ to non-numeric [facility] System results) ID Date Data Source [id number] 05/12/2015 03:07:00 PM EST [facility] Name Value Range Interpretation Description Data Sup porting Code Source(s) Document(s ) Leukocytes 5.2 Normal (applies WBC Count [facility] [#/volume] in {10^3_uL to non-numeric Health Unspecified } results) System specimen by Automated count Erythrocytes 4.75 Normal (applies RBC Count [facility] [#/volume] in {10^6_uL to non-numeric Health Blood by } results) System Automated count Hemoglobin 14.5 Normal (applies Hemoglobin [facility] [Mass/volume] in {gm/dL} to non-numeric Health Blood results) System Hematocrit 42.5 % Normal (applies Hematocrit [facility] [Volume to non-numeric Health Fraction] of results) System Blood Erythrocyte mean 89.5 fl Normal (applies MCV [facility] corpuscular to non-numeric Health volume [Entitic results) System volume] by Automated count Erythrocyte mean 30.5 pg Normal (applies MCH [facility] corpuscular to non-numeric Health hemoglobin results) System [Entitic mass] by Automated count Erythrocyte mean 34.1 Normal (applies MCHC [facility] corpuscular {gm/dL} to non-numeric Health hemoglobin results) System concentration [Mass/volume] by Automated count Erythrocyte 16.2 % Above high normal RDW-CV [facility] distribution Health width [Entitic System volume] by Automated count Platelets 238 Normal (applies Platelet [facility] [#/volume] in {10^3_uL to non-numeric Count Health Plasma by } results) System Automated count Platelet mean 11.5 fl Above high normal MPV [facility] volume [Entitic Health volume] in Blood System by Automated count Monocytes 0.9 Above high normal Monocyte # [facility] [#/volume] in {10^3_uL Health Blood by Manual } System count Eosinophils 0.18 Normal (applies Eosinophil # [facility] [#/volume] in {10^3_uL to non-numeric Health Blood } results) System Neutrophils 3.2 Normal (applies Neutrophil # [facility] [#/volume] in {10^3_uL to non-numeric Health Body fluid } results) System Basophils 0.04 Normal (applies Basophil # [facility] [#/volume] in {10^3_uL to non-numeric Health Blood by } results) System Automated count Lymphocyte 0.9 Below low normal Lymphocyte # [facility] percent {10^3_uL Health differential } System count (procedure) Neutrophils/100 60.9 % Normal (applies Neutrophil % [facility] patience leukocytes in to non-numeric Health Blood by results) System Automated count Monocytes/100 17.7 % Normal (applies Monocyte % [facility] leukocytes in to non-numeric Health Blood results) System Eosinophils/100 3.4 % Above high normal Eosinophil % [facility] leukocytes in Health Unspecified System specimen Basophils/100 0.8 % Normal (applies Basophil % [facility] leukocytes in to non-numeric Health Unspecified results) System specimen by Manual count Lymphocytes 17.2 % Below low normal Lymphocyte % [facility] [#/volume] in Health Blood by System Automated count ID Date Data Source [id number] 05/12/2015 03:07:00 PM EST [facility] Name Value Range Interpretation Description Data Sup porting Code Source(s) Document(s ) Sodium 142 Normal (applies Sodium, Serum [facility] [Moles/volume] in mmol/L to non-numeric Health Serum or Plasma results) System Potassium 4.5 Normal (applies Potassium, [facility] [Mass/volume] in mmol/L to non-numeric Serum Health Serum or Plasma results) System Chloride 104 Normal (applies Chloride, [facility] [Moles/volume] in mmol/L to non-numeric Serum Health Serum or Plasma results) System Carbon dioxide, 27.0 Normal (applies CO2, Serum [facility] total mmol/L to non-numeric Health [Moles/volume] in results) System Serum or Plasma TotalProtein 7.9 Normal (applies Total Protein [facility] mg/dl to non-numeric Health results) System Glucose 98 Normal (applies Glucose, [facility] [Mass/volume] in mg/dL to non-numeric Serum Health Serum or Plasma results) System Urea nitrogen 10 Normal (applies Blood Urea [facility] [Mass/volume] in mg/dl to non-numeric Nitrogen, Health Serum or Plasma results) Serum System Creatinine 0.74 Below low normal Creatinine, [facility] [Mass/volume] in mg/dl Serum Health Serum or Plasma System Alkaline 61 Normal (applies Alkaline [facility] phosphatase {IU/L} to non-numeric Phosphatase, Health isoenzymes results) Serum System [Enzymatic activity/volume] in Serum or Plasma by Heat stability Bilirubin.total 0.5 Normal (applies Bilirubin, [facility] [Mass/volume] in mg/dl to non-numeric Serum Total Health Serum or Plasma results) System DirectBilirubin 0.2 Normal (applies Direct [facility] mg/dl to non-numeric Bilirubin Health results) System Aspartate 33 Normal (applies Aspartate [facility] aminotransferase {IU/L} to non-numeric Transaminase, Heal th [Enzymatic results) Serum System activity/volume] in Serum or Plasma by With P-5'-P Albumin 4.3 Normal (applies Albumin, [facility] [Mass/volume] in {gm/dl} to non-numeric Serum Health Serum or Plasma results) System I.Phosphorus 3.5 Normal (applies I. Phosphorus [facility] mg/dl to non-numeric Health results) System Alanine 36 Normal (applies Alanine [facility] aminotransferase {IU/L} to non-numeric Aminotransfer Heal th [Enzymatic results) ase, Serum System activity/volume] in Serum or Plasma Calcium 9.5 Normal (applies Calcium, [facility] [Mass/volume] in mg/dl to non-numeric Total Serum Health Serum or Plasma results) System A/GRatio 1.19 Normal (applies A/G Ratio [facility] to non-numeric Health results) System Urate 6.7 Normal (applies Uric Acid, [facility] [Mass/volume] in mg/dl to non-numeric Serum Health Serum or Plasma results) System Anion gap in Serum 11.00 Normal (applies Anion Gap [facility] patience or Plasma mmol/L to non-numeric Health results) System Glomerular > 90 Normal (applies GFR [facility] filtration to non-numeric Health rate/1.73 sq results) System M.predicted [Volume Rate/Area] in Serum or Plasma by Creatinine-based formula (CKD-EPI) eGFR will provide clinicians with a more accurate indicator of renal function then the serum creatinine. The eGFR is automa tically calculated from an empiric formula (endorsed by the National [employer] ion) which incorporates age, sex, and race.Clinicians may notice surprisingly low GFR's with serum creatinine valueswithin normal range- particularly in elderly wo men (with low muscle mass).In the hospital setting, the eGFR should add an element of safety in drug dosing, in assessing the risk of IV contrast administration, and in assessing vascular risk.The NKF staging system is as follows:Normal: eGFR >90 with no kidney markersStage 1: eGFR >90 with kidney markers*Stage 2: eGFR 60- 89Stage 3: eGFR 30-59Stage 4: eGFR 15-29Stage 5: eGFR <15 (usually requir ing dialysis)*Markers include: Proteinuria, Hematuria, abnormal imaging-studies, or other blood or urine test abnormalities ID Date Data Source [id number] 05/12/2015 03:07:00 PM EST [facility] Name Value Range Interpretation Description Data Sup porting Code Source(s) Document(s ) Creatine 494 Above high normal Creatine [facility] kinase.MB {IU/L} Kinase, Serum Health System [Mass/volume ] in Serum or Plasma ID Date Data Source [id number] 05/12/2015 03:07:00 PM EST [facility] Name Value Range Interpretation Description Data Source(s ) Supporting Code Document(s ) Reagin Ab 1:2 Normal (applies to Titer-RPR [facility] [Titer] in non-numeric Health System Serum by results) RPR Reagin Ab Reactive Abnormal (applies RPR. [facility] [Presence] to non-numeric Health System in Serum by results) RPR ID Date Data Source [id number] 07/28/2015 10:43:36 AM EST [facility] Name Value Range Interpretation Description Data Sup porting Code Source(s) Document(s ) Leukocytes 4.5 Below low normal WBC Count [facility] [#/volume] in {10^3_uL Health Unspecified } System specimen by Automated count Erythrocytes 5.05 Normal (applies RBC Count [facility] [#/volume] in {10^6_uL to non-numeric Health Blood by } results) System Automated count Hemoglobin 15.7 Normal (applies Hemoglobin [facility] [Mass/volume] in {gm/dL} to non-numeric Health Blood results) System Hematocrit 45.3 % Normal (applies Hematocrit [facility] [Volume to non-numeric Health Fraction] of results) System Blood Erythrocyte mean 89.7 fl Normal (applies MCV [facility] corpuscular to non-numeric Health volume [Entitic results) System volume] by Automated count Erythrocyte mean 31.1 pg Normal (applies MCH [facility] corpuscular to non-numeric Health hemoglobin results) System [Entitic mass] by Automated count Erythrocyte mean 34.7 Normal (applies MCHC [facility] corpuscular {gm/dL} to non-numeric Health hemoglobin results) System concentration [Mass/volume] by Automated count Erythrocyte 14.1 % Normal (applies RDW-CV [facility] distribution to non-numeric Health width [Entitic results) System volume] by Automated count Platelets 218 Normal (applies Platelet [facility] [#/volume] in {10^3_uL to non-numeric Count Health Plasma by } results) System Automated count Platelet mean 12.0 fl Above high normal MPV [facility] volume [Entitic Health volume] in Blood System by Automated count Monocytes 0.7 Normal (applies Monocyte # [facility] [#/volume] in {10^3_uL to non-numeric Health Blood by Manual } results) System count Eosinophils 0.16 Normal (applies Eosinophil # [facility] [#/volume] in {10^3_uL to non-numeric Health Blood } results) System Neutrophils 2.8 Normal (applies Neutrophil # [facility] [#/volume] in {10^3_uL to non-numeric Health Body fluid } results) System Basophils 0.06 Normal (applies Basophil # [facility] [#/volume] in {10^3_uL to non-numeric Health Blood by } results) System Automated count Lymphocyte 0.8 Below low normal Lymphocyte # [facility] percent {10^3_uL Health differential } System count (procedure) Neutrophils/100 62.1 % Normal (applies Neutrophil % [place] patience leukocytes in to non-numeric Health Blood by results) System Automated count Monocytes/100 16.3 % Normal (applies Monocyte % [facility] leukocytes in to non-numeric Health Blood results) System Eosinophils/100 3.6 % Above high normal Eosinophil % [facility] leukocytes in [facility] Unspecified System specimen Basophils/100 1.3 % Above high normal Basophil % [facility] leukocytes in Health Unspecified System specimen by Manual count Lymphocytes 16.7 % Below low normal Lymphocyte % [facility] [#/volume] in Health Blood by System Automated count ID Date Data Source [id number] 07/28/2015 10:43:36 AM EST [facility] Name Value Range Interpretation Description Data Sup porting Code Source(s) Document(s ) Sodium 140 Normal (applies Sodium, Serum [facility] [Moles/volume] in mmol/L to non-numeric Health Serum or Plasma results) System Potassium 5.0 Normal (applies Potassium, [facility] [Mass/volume] in mmol/L to non-numeric Serum Health Serum or Plasma results) System Chloride 103 Normal (applies Chloride, [facility] [Moles/volume] in mmol/L to non-numeric Serum Health Serum or Plasma results) System Carbon dioxide, 24.0 Normal (applies CO2, Serum [facility] total mmol/L to non-numeric Health [Moles/volume] in results) System Serum or Plasma TotalProtein 7.8 Normal (applies Total Protein [facility] mg/dl to non-numeric Health results) System Glucose 76 Normal (applies Glucose, [facility] [Mass/volume] in mg/dL to non-numeric Serum Health Serum or Plasma results) System Urea nitrogen 10 Normal (applies Blood Urea [facility] [Mass/volume] in mg/dl to non-numeric Nitrogen, Health Serum or Plasma results) Serum System Creatinine 0.74 Below low normal Creatinine, [facility] [Mass/volume] in mg/dl Serum Health Serum or Plasma System Alkaline 83 Normal (applies Alkaline [facility] phosphatase {IU/L} to non-numeric Phosphatase, Health isoenzymes results) Serum System [Enzymatic activity/volume] in Serum or Plasma by Heat stability Bilirubin.total 0.4 Normal (applies Bilirubin, [facility] [Mass/volume] in mg/dl to non-numeric Serum Total Health Serum or Plasma results) System DirectBilirubin 0.1 Normal (applies Direct [facility] mg/dl to non-numeric Bilirubin Health results) System Aspartate 36 Normal (applies Aspartate [facility] aminotransferase {IU/L} to non-numeric Transaminase, Heal th [Enzymatic results) Serum System activity/volume] in Serum or Plasma by With P-5'-P Albumin 4.6 Normal (applies Albumin, [facility] [Mass/volume] in {gm/dl} to non-numeric Serum Health Serum or Plasma results) System I.Phosphorus 3.4 Normal (applies I. Phosphorus [facility] mg/dl to non-numeric Health results) System Alanine 43 Normal (applies Alanine [facility] aminotransferase {IU/L} to non-numeric Aminotransfer Heal th [Enzymatic results) ase, Serum System activity/volume] in Serum or Plasma Calcium 9.2 Normal (applies Calcium, [facility] [Mass/volume] in mg/dl to non-numeric Total Serum Health Serum or Plasma results) System A/GRatio 1.44 Normal (applies A/G Ratio [facility] to non-numeric Health results) System Urate 6.1 Normal (applies Uric Acid, [facility] [Mass/volume] in mg/dl to non-numeric Serum Health Serum or Plasma results) System Anion gap in Serum 13.00 Above high Anion Gap [facility] or Plasma mmol/L normal Health System Glomerular > 90 Normal (applies GFR [facility] filtration to non-numeric Health rate/1.73 sq results) System M.predicted [Volume Rate/Area] in Serum or Plasma by Creatinine-based formula (CKD-EPI) eGFR will provide clinicians with a more accurate indicator of renal function then the serum creatinine. The eGFR is automa tically calculated from an empiric formula (endorsed by the National Kidney [employer] ion) which incorporates age, sex, and race.Clinicians may notice surprisingly low GFR's with serum creatinine valueswithin normal range- particularly in elderly wo men (with low muscle mass).In the hospital setting, the eGFR should add an element of safety in drug dosing, in assessing the risk of IV contrast administration, and in assessing vascular risk.The NKF staging system is as follows:Normal: eGFR >90 with no kidney markersStage 1: eGFR >90 with kidney markers*Stage 2: eGFR 60- 89Stage 3: eGFR 30-59Stage 4: eGFR 15-29Stage 5: eGFR <15 (usually requir ing dialysis)*Markers include: Proteinuria, Hematuria, abnormal imaging-studies, or other blood or urine test abnormalities ID Date Data Source [id number] 07/28/2015 03:37:00 PM EST [facility] Name Value Range Interpretation Description Data Sup porting Code Source(s) Document(s ) TotalB-CD1 2 {Percent} Below low normal Total B-CD19 [facility] TotalT-CD3 66 Normal (applies Total T-CD3 [facility] to non-numeric Health results) System T-HelperCD 41 Normal (applies T-[place] CD4+ [facility] 4+ to non-numeric Health results) System TSuppresso 22 Normal (applies T Suppressor [facility] rCD8+ to non-numeric CD8+ Health results) System [place]/Sup 1.85 Normal (applies [place]/Suppres [facility] pressor to non-numeric sor Health results) System Message SEE NOTE Normal (applies Message [facility] Lymphocyte to non-numeric Health subset results) System results confirmed by repeat analysis. Test Performed at: [email or web address], [place] [address] Andres Leon M.D. LymphRel.C 717 Below low normal Lymph Rel. [facility] ount {Cells/mcL} Count Health System CD19 < 20 Below low normal CD19 [facility] CD3 492 Below low normal CD3 [facility] {Cells/mcL} Health System HelperCD4+ 320 Below low normal [place] CD4+ [facility] {Cells/mcL} Health System SuppressCD 173 Below low normal Suppress CD8+ [facility] 8+ {Cells/mcL} Health System ID Date Data Source [id number] 07/28/2015 03:37:00 PM EST [facility] Name Value Range Interpretation Description Data Sup porting Code Source(s) Document(s ) Polys 72 % Normal (applies Polys [facility] to non-numeric Health System results) Bands 1 % Below low normal Bands [facility] Lymphocyte%. 14 % Normal (applies Lymphocyte %. [facility] to non-numeric [facility] System results) Variant 3 % Normal (applies Atypical [facility] lymphocytes to non-numeric Lymphocyte Health Syste m [Presence] in results) Count Blood by Automated count Platelets Normal Normal (applies Platelet Count [facility] [#/volume] in to non-numeric Estimate Health Syst em Blood by results) Estimate Monocyte%. 9 % Normal (applies Monocyte %. [facility] to non-numeric [facility] System results) Eosinophils%. 1 % Normal (applies Eosinophils %. [place] patience to non-numeric Health System results) ID Date Data Source [id number] 07/28/2015 03:37:00 PM EST [facility] Name Value Range Interpretation Description Data Source(s ) Supporting Code Document(s ) Reagin Ab Non-react Normal (applies to RPR. [facility] [Presence] felipa non-numeric Health System in Serum by results) RPR ID Date Data Source [id number] 12/04/2015 10:03:56 AM EDT [facility] Name Value Range Interpretation Description Data Sup porting Code Source(s) Document(s ) HepatitisCRati 0.10 {Ratio} Normal (applies Hepatitis C [facility] o to non-numeric Ratio Health results) System HepatitisCVira Non Normal (applies Hepatitis C [facility] lAntibody ReactiveReferen to non-numeric Viral Health ce Range: Non results) Antibody System Reactive ID Date Data Source [id number] 12/04/2015 10:03:56 AM EDT [facility] Name Value Range Interpretation Description Data Sup porting Code Source(s) Document(s ) Color YELLOW Normal (applies Color [facility] to non-numeric Health results) System Appearance of CLEAR Normal (applies Urine [facility] Urine to non-numeric Appearance Health results) System Specific gravity 1.025 Normal (applies Urine Specific [facility] of Urine to non-numeric [facility] results) System pH.. 5.5 Normal (applies pH.. [facility] {pH_units to non-numeric Health } results) System Glucose,UA NEGATIVE Normal (applies Glucose, UA [facility] to non-numeric Health results) System Protein NEGATIVE Normal (applies Protein [facility] [Mass/volume] in to non-numeric Health Serum or Plasma results) System BilirubinUrine NEGATIVE Normal (applies Bilirubin [facility] to non-numeric Urine Health results) System Urobilinogen 0.2 mg/dL Normal (applies Urobilinogen [facility] [Mass/volume] in to non-numeric UA Health Urine results) System Ketones NEGATIVE Normal (applies Ketones UA [facility] [Mass/volume] in to non-numeric Health Urine results) System Nitrate+Nitrite NEGATIVE Normal (applies Nitrite [facility] [Mass/volume] in to non-numeric Health Unspecified results) System specimen Leukocyte esterase NEGATIVE Normal (applies Leukocyte [facility] patience [Units/volume] in to non-numeric Esterase Health Urine results) Concentration System Leukocytes 0-2 Normal (applies White Blood [facility] [#/volume] in to non-numeric Cells Health Unspecified results) System specimen by Automated count RedBloodCells 0-2 Normal (applies Red Blood [facility] to non-numeric Cells Health results) System RedBloodCellClump . Normal (applies Red Blood Cell [facility] to non-numeric Clump Health results) System UrineBlood NEGATIVE Normal (applies Urine Blood [facility] to non-numeric Health results) System ID Date Data Source [id number] 12/04/2015 10:03:56 AM EDT [facility] Name Value Range Interpretation Description Data Sup porting Code Source(s) Document(s ) Leukocytes 4.5 Below low normal WBC Count [facility] [#/volume] in {10^3_uL Health Unspecified } System specimen by Automated count Erythrocytes 5.44 Normal (applies RBC Count [facility] [#/volume] in {10^6_uL to non-numeric Health Blood by } results) System Automated count Hemoglobin 15.8 Normal (applies Hemoglobin [facility] [Mass/volume] in {gm/dL} to non-numeric Health Blood results) System Hematocrit 46.0 % Normal (applies Hematocrit [facility] [Volume to non-numeric Health Fraction] of results) System Blood Erythrocyte mean 84.6 fl Normal (applies MCV [facility] corpuscular to non-numeric Health volume [Entitic results) System volume] by Automated count Erythrocyte mean 29.0 pg Normal (applies MCH [facility] corpuscular to non-numeric Health hemoglobin results) System [Entitic mass] by Automated count Erythrocyte mean 34.3 Normal (applies MCHC [facility] corpuscular {gm/dL} to non-numeric Health hemoglobin results) System concentration [Mass/volume] by Automated count Erythrocyte 13.6 % Normal (applies RDW-CV [facility] distribution to non-numeric Health width [Entitic results) System volume] by Automated count Platelets 220 Normal (applies Platelet [facility] [#/volume] in {10^3_uL to non-numeric Count Health Plasma by } results) System Automated count Platelet mean 12.3 fl Above high normal MPV [facility] volume [Entitic Health volume] in Blood System by Automated count Monocytes 0.8 Normal (applies Monocyte # [facility] [#/volume] in {10^3_uL to non-numeric Health Blood by Manual } results) System count Eosinophils 0.21 Normal (applies Eosinophil # [facility] [#/volume] in {10^3_uL to non-numeric Health Blood } results) System Neutrophils 2.4 Normal (applies Neutrophil # [facility] [#/volume] in {10^3_uL to non-numeric Health Body fluid } results) System Basophils 0.05 Normal (applies Basophil # [facility] [#/volume] in {10^3_uL to non-numeric Health Blood by } results) System Automated count Lymphocyte 1.1 Normal (applies Lymphocyte # [facility] percent {10^3_uL to non-numeric Health differential } results) System count (procedure) Neutrophils/100 52.2 % Normal (applies Neutrophil % [facility] patience leukocytes in to non-numeric Health Blood by results) System Automated count Monocytes/100 18.2 % Normal (applies Monocyte % [facility] leukocytes in to non-numeric Health Blood results) System Eosinophils/100 4.7 % Above high normal Eosinophil % [facility] leukocytes in Health Unspecified System specimen Basophils/100 1.1 % Above high normal Basophil % [facility] leukocytes in Health Unspecified System specimen by Manual count Lymphocytes 23.8 % Normal (applies Lymphocyte % [facility] [#/volume] in to non-numeric Health Blood by results) System Automated count ID Date Data Source [id number] 12/04/2015 10:03:56 AM EDT [facility] Name Value Range Interpretation Description Data Sup porting Code Source(s) Document(s ) Sodium 139 Normal (applies Sodium, Serum [facility] [Moles/volume] in mmol/L to non-numeric Health Serum or Plasma results) System Potassium 4.4 Normal (applies Potassium, [facility] [Mass/volume] in mmol/L to non-numeric Serum Health Serum or Plasma results) System Chloride 101 Normal (applies Chloride, [facility] [Moles/volume] in mmol/L to non-numeric Serum Health Serum or Plasma results) System Carbon dioxide, 26.0 Normal (applies CO2, Serum [facility] total mmol/L to non-numeric Health [Moles/volume] in results) System Serum or Plasma TotalProtein 8.2 Normal (applies Total Protein [facility] mg/dl to non-numeric Health results) System Glucose 79 Normal (applies Glucose, [facility] [Mass/volume] in mg/dL to non-numeric Serum Health Serum or Plasma results) System Urea nitrogen 12 Normal (applies Blood Urea [facility] [Mass/volume] in mg/dl to non-numeric Nitrogen, Health Serum or Plasma results) Serum System Creatinine 0.77 Below low normal Creatinine, [facility] [Mass/volume] in mg/dl Serum Health Serum or Plasma System Alkaline 97 Normal (applies Alkaline [facility] phosphatase {IU/L} to non-numeric Phosphatase, Health isoenzymes results) Serum System [Enzymatic activity/volume] in Serum or Plasma by Heat stability Bilirubin.total 0.5 Normal (applies Bilirubin, [facility] [Mass/volume] in mg/dl to non-numeric Serum Total Health Serum or Plasma results) System DirectBilirubin 0.2 Normal (applies Direct [facility] mg/dl to non-numeric Bilirubin Health results) System Aspartate 47 Above high Aspartate [facility] aminotransferase {IU/L} normal Transaminase, Health [Enzymatic Serum System activity/volume] in Serum or Plasma by With P-5'-P Albumin 4.4 Normal (applies Albumin, [facility] [Mass/volume] in {gm/dl} to non-numeric Serum Health Serum or Plasma results) System I.Phosphorus 3.8 Normal (applies I. Phosphorus [facility] mg/dl to non-numeric Health results) System Alanine 42 Normal (applies Alanine [facility] aminotransferase {IU/L} to non-numeric Aminotransfer Heal th [Enzymatic results) ase, Serum System activity/volume] in Serum or Plasma Calcium 9.1 Normal (applies Calcium, [facility] [Mass/volume] in mg/dl to non-numeric Total Serum Health Serum or Plasma results) System A/GRatio 1.16 Normal (applies A/G Ratio [facility] to non-numeric Health results) System Urate 8.3 Normal (applies Uric Acid, [facility] [Mass/volume] in mg/dl to non-numeric Serum Health Serum or Plasma results) System Anion gap in Serum 12.00 Normal (applies Anion Gap [facility] patience or Plasma mmol/L to non-numeric Health results) System Glomerular > 90 Normal (applies GFR [facility] filtration to non-numeric Health rate/1.73 sq results) System M.predicted [Volume Rate/Area] in Serum or Plasma by Creatinine-based formula (CKD-EPI) eGFR will provide clinicians with a more accurate indicator of renal function then the serum creatinine. The eGFR is automa tically calculated from an empiric formula (endorsed by the National Kidney [employer]at ion) which incorporates age, sex, and race.Clinicians may notice surprisingly low GFR's with serum creatinine valueswithin normal range- particularly in elderly wo men (with low muscle mass).In the hospital setting, the eGFR should add an element of safety in drug dosing, in assessing the risk of IV contrast administration, and in assessing vascular risk.The NKF staging system is as follows:Normal: eGFR >90 with no kidney markersStage 1: eGFR >90 with kidney markers*Stage 2: eGFR 60- 89Stage 3: eGFR 30-59Stage 4: eGFR 15-29Stage 5: eGFR <15 (usually requir ing dialysis)*Markers include: Proteinuria, Hematuria, abnormal imaging-studies, or other blood or urine test abnormalities ID Date Data Source [id number] 12/04/2015 10:03:56 AM EDT [facility] Name Value Range Interpretation Description Data Sup porting Code Source(s) Document(s ) Triglyceride 126 Normal (applies Triglycerides, [facility] [Mass/volume] mg/dl to non-numeric Serum Health in Serum or results) System Plasma Optimal = < 100 mg/dLBoderline High = 15 0 - 199 mg/dLHigh = 200 - 499 mg/dLVery High = > 500 mg/dL Cholesterol 163 mg/dl Normal (applies Cholesterol, Serum [facility] [Mass/volume] in to non-numeric Health S yste Serum or Plasma results) <200 mg/dL = [id number] - 239 md/dL = Borderline>240 mg/dL = High Risk Cholesterol in HDL 32.0 mg/dL Normal (applies HDL Cholestero l, [facility] [Mass/volume] in to non-numeric Serum Health S yste Serum or Plasma results) Cholesterol in LDL 105.8 mg/dL Normal (applies Low Density [facility] [Mass/volume] in to non-numeric Lipoprotein, Healt h System Serum or Plasma results) Calculated OPTIMAL: LESS THAN 100 mg/dLNEAR OPTIMAL : 100 - 129 mg/dLBODERLINE HIGH: 130 - 150 mg/dL Cholesterol in VLDL 25.2 Normal (applies to VLDL, Serum [facility] [Mass/volume] in Serum non-numeric results) System or Plasma CHDRisk 5.09 Normal (applies to CHD Risk [facility] non-numeric results) System ID Date Data Source [id number] 12/04/2015 10:03:56 AM ED[facility] Name Value Range Interpretation Description Data Sup porting Code Source(s) Document(s ) Creatine 911 Above high normal Creatine [facility] kinase.MB {IU/L} Kinase, Serum Health System [Mass/volume ] in Serum or Plasma ID Date Data Source [id number] 12/04/2015 03:48:00 PM EDT [facility] Name Value Range Interpretation Description Data Sup porting Code Source(s) Document(s ) Quantit Negative Normal (applies Quantiteron-TB [facility] geraldine-TB Negative to non-numeric Gold. Health Syst em Gold. Negative results) test result. M. tuberculosis complex infection unlikely. NIL 0.06 {IU/mL} Normal (applies NIL [facility] to non-numeric Health System results) TBAG-NI < 0.0 Normal (applies TB AG-NIL [facility] L to non-numeric Health System results) Mitogen SEE TEXT 4.14 Normal (applies Mitogen-NIL [facility] -NIL IU/mL to non-numeric Health Syste m The Nil results) tube value is used to determine if the patient has a preexisting immune response which could cause a false- positive reading on the test. In order for a test to be valid, the Nil tube must have a value of <=8.0 IU/mL. The mitogen control tube is used to assure the patient has a healthy immune status and also serves as a control for correct blood handling and incubation. It is used to detect false-negative readings. The mitogen tube must have a gamma interferon value >=0.5 IU/mL higher than the value of the Nil tube. The TB Antigen tube is coated with the M. tuberculosis specific antigens. For a test to be considered positive, the TB antigen tube value minus the Nil tube value must be >=0.35 IU/mL. For additional information, please refer to [email or web address] (This link is being provided for informational/e ducational purposes only.) ID Date Data Source [id number] 12/04/2015 03:48:00 PM EDT [facility] Name Value Range Interpretation Code Description Data Lexy rce(s) Supporting Document(s ) FTA,Serum reactive Normal (applies to FTA, Serum [facility] non-numeric Health System results) Result Reporting|Telephone|| 12/05/2015 at 3:08 PMCalled to:Tech Name:EGReadback by:DR PRINGLE 12/05/2015 / 3:08 PM Reference Range: Non Reactive ID Date Data Source [id number] 12/04/2015 03:48:00 PM EDT [facility] Name Value Range Interpretation Description Data Sup porting Code Source(s) Document(s ) TotalB-CD1 4 {Percent} Below low normal Total B-CD19 [facility] TotalT-CD3 59 Normal (applies Total T-CD3 [facility] to non-numeric Health System results) T-HelperCD 28 {Percent} Below low normal T-[place] CD4+ [place] patience 4+ Health System TSuppresso 27 Normal (applies T Suppressor [facility] rCD8+ to non-numeric CD8+ Health System results) [place]/Sup 1.06 Normal (applies [place]/Suppres [facility] pressor to non-numeric sor Health System results) Message DNRTest Normal (applies Message [facility] Performed to non-numeric Health System at:[facility] - results) [facility], [place], [place] [address]TqaxvkoBimal Leon M.D. LymphRel.C 1170 Normal (applies Lymph Rel. [facility] ount to non-numeric Count Health System results) CD19 42 Below low normal CD19 [facility] {Cells/mcL} Health System CD3 708 Below low normal CD3 [facility] {Cells/mcL} Health System HelperCD4+ 345 Below low normal [place] CD4+ [facility] {Cells/mcL} Health System SuppressCD 326 Normal (applies Suppress CD8+ [facility] 8+ to non-numeric Health System results) ID Date Data Source [id number] 12/04/2015 03:48:00 PM EDT [facility] Name Value Range Interpretation Description Data Sup porting Code Source(s) Document(s ) C.Trac Not Normal (applies C. [facility] homati DetectedReference to non-numeric Trachomatis Healt h sAmp Range: Not Detected results) Amp System N.Gono Not Normal (applies N. Gonorrhea [facility] rrheab DetectedReference to non-numeric by [facility] Health yLCR Range: Not results) System DetectedThis test was performed using the APTIMA COMBO2(R) Assay(GEN-PROBE(R)) .Test Performed at:[facility] [employer] [address] [facility], [place], [place] [address]GvlkxvkyAndres Leon M.D. ID Date Data Source [id number] 12/04/2015 03:48:00 PM EDT [facility] System Name Value Range Interpretation Description Data Source(s ) Supporting Code Document(s ) Reagin Ab 1:1 Normal (applies to Titer-RPR [facility] [Titer] in non-numeric Health System Serum by results) RPR Reagin Ab Reactive Abnormal (applies RPR. [facility] [Presence] to non-numeric Health System in Serum by results) RPR ID Date Data Source [id number] 11/11/2019 08:23:[address] [facility] Single portable frontal chest radiograph History: Chest painComparison: July 04, 2019 radiographFindings: Slightly rotate d patient positioning, likely resultingin the mildly increasedattenuation in the left base. Normallung volumes without lobar consolidation, pneumothorax, or largeple uraleffusion. Right Port-A-Cath terminates in the high rightatrium. Cardiomediastinal silhouette and pulmonaryvasculatureappear within normal limits. No acute osseous a bnormality.IMPRESSION: No evidence of acutecardiopulmonary disease. Electron ically Signed by Dylan Musa MD on 11/11/2019 at 2113Reported and signed by: Dylan Musa MDEncox north Physician ServicesG[facility] DR[address] DYLAN KEMP [phone] Signed:Dylan Musa, at 21:13 EDTTel , Servicesupport , [phone] Name Value Range Interpretation Code Description Data Lexy rce(s) Supporting Document(s ) ID Date Data Source [id number] 07/04/2019 10:34:[address] [facility] PROCEDURE INFORMATION: Exam: XR Chest, 2 Views Exam date and time: 07/04/2019 10:41 PM Age: 28 years old Clinical indication: V isit reason: SOB; TECHNIQUE: Imaging protocol: XR of the chest Views: 2views. COMPARISON: No relevant prior studies available. FINDINGS: Lungs: No consolida tion.Pleural space: Unremarkable. No pleural effusion. No pneumothorax. Heart/Mediast inum: Unremarkable. Nocardiomegaly. Bones/joints: There is place with the di stal tip likely terminating in the distal SVC/atriocavaljunction. IMPRESSION: No a cute findings. Name Value Range Interpretation Code Description Data Lexy rce(s) Supporting Document(s ) ID Date Data Source [id number] 10/28/2018 05:15:[address] [facility] CT of the head without contrastClinical history: InjuryFindings:Noncontrast axial sections obtained from skull base to quan andressa. Automated exposure control or low-dose technique with adjustment of the dose ba sed on patient's size was utilized.No evidence of intracranial hemorrhage. No extra-axial fluid collections. No mass effect or midline shift. Ventricles are normal in size. No abnormal density is seen. Posterior fossa is unremarkable.C alvarium is intact. Paranasal sinuses and mastoid air cells are well pneumatized a nd clear.Impression:No evidence of intracranial hemorrhage, mass lesion, or acute territorial infarct. Name Value Range Interpretation Code Description Data Lexy rce(s) Supporting Document(s ) ID Date Data Source [id number] 10/28/2018 05:16:[address] [facility] EXAM: CT Cervical Spine Without Contras tEXAM DATE/TIME: 10/28/2018 5:25 PMCLINICAL HISTORY: 28 years old, male; Visit reas on: Injury;TECHNIQUE: Imaging protocol: Axial computed tomography images of the cervical spine without contrast. Coronal and sagittal reformatted images were created and reviewed. Radiation optimization: All CT scans at this facility use at least o ne of these dose optimization techniques: automated exposure control; mA and/or kV adjustment per patient size (includes targeted exams where dose is matched to clinical indication); or iterative reconstruction.COMPARISON: No relevant prior studies available.DOSE INFORMATION: Estimated radiation dose for this examin ation in total is DLP of 500 mGy-cm. This CT exam was performed using one or more of the following dose reduction techniques: Automated exposure control, adjustment o f mA and / or kV according to patient size, use of iterative reconstruction techniqu e. 2.5 mm axial images were taken through the cervical spine.Sagittal and coronal catalina nstructions were performed. No fracture is identified.There is straightening of the normal lordotic curve which may be due to positioning or spasm. Intervertebral dis k spaces are maintained.Vertebral body heights are maintained.Facet joints appe ar normal without significant arthritic changes.C2 -- 3: No significant neural f oraminal narrowing or spinal stenosis.C3 -- 4: No significant neural foraminal narro wing or spinal stenosis.C4 -- 5: No significant neural foraminal narrowing o r spinal stenosis.C5 -- 6: No significant neural foraminal narrowing or spinal adi nosis.C6 -- 7: No significant neural foraminal narrowing or spinal stenosis.C 7 -- T1: No significant neural foraminal narrowing or spinal stenosis.Visible sof t tissues of the neck appear normal.Thyroid gland appears normal.Lung apices appear normal.Impression:1. No fracture.2. There is straightening of the normal lordotic cur ve which may be due to positioning or spasm. Name Value Range Interpretation Code Description Data Lexy rce(s) Supporting Document(s ) Procedure Vital Signs ID Date Data Source [id number] Name Value Range Interpretation Code Description Data Source(s) Body surface area 2 m2 2 m2 [facility] formula Body mass index 26.4 kg/m2 26.4 kg/m2 [facility] (BMI) [Ratio] [facility] Body weight 86.18 kg 86.18 kg [facility] Body height 180.34 cm 180.34 cm [facility] Body temperature 98.4 [degF] 0 - 200 Normal (applies to 98.4 [degF ] [facility] non-numeric results) [facility] Body temperature 36.8 Wanda 0 - 99.9 Normal (applies to 36.8 Wanda [facility] non-numeric results) [facility] Diastolic blood 76 mm[Hg] 0 - 999 Normal (applies to 76 mm[Hg] [facility] pressure non-numeric results) [facility] Systolic blood 121 mm[Hg] 0 - 999 Normal (applies to 121 mm[Hg] [facility] pressure non-numeric results) [facility] Oxygen saturation 99 % 0 - 999 Normal (applies to 99 % [facility] in Arterial blood non-numeric results) [facility] by Pulse oximetry Respiratory rate 16 0 - 999 Normal (applies to 16 [facility] non-numeric results) [facility] Heart rate 89 0 - 999 Normal (applies to 89 [facility] non-numeric results) [facility] Diastolic blood 97 mm[Hg] 0 - 999 Above high normal 97 mm[Hg] [facility] pressure [facility] Systolic blood 137 mm[Hg] 0 - 999 Normal (applies to 137 mm[Hg] [facility] pressure non-numeric results) [facility] Respiratory rate 16 0 - 999 Normal (applies to 16 [facility] non-numeric results) [facility] Heart rate 89 0 - 999 Normal (applies to 89 [facility] non-numeric results) [facility] Body surface area 2 m2 2 m2 [facility] formula Body mass index 26.4 kg/m2 26.4 kg/m2 [facility] (BMI) [Ratio] [facility] Body weight 86.18 kg 86.18 kg [facility] Body height 180.34 cm 180.34 cm [facility] Body temperature 97.9 [degF] 0 - 200 Normal (applies to 97.9 [degF ] [facility] non-numeric results) [facility] Body temperature 36.6 Wanda 0 - 99.9 Normal (applies to 36.6 Wanda [facility] non-numeric results) [facility] Oxygen saturation 100 % 0 - 999 Normal (applies to 100 % [facility] in Arterial blood non-numeric results) Health System by Pulse oximetry Diastolic blood 84 mm[Hg] 0 - 999 Normal (applies to 84 mm[Hg] [facility] pressure non-numeric results) [facility] Systolic blood 135 mm[Hg] 0 - 999 Normal (applies to 135 mm[Hg] [facility] pressure non-numeric results) [facility] Oxygen saturation 100 % 0 - 999 Normal (applies to 100 % [facility] in Arterial blood non-numeric results) Health System by Pulse oximetry Respiratory rate 20 0 - 999 Above high normal 20 [facility] Heart rate 96 0 - 999 Normal (applies to 96 [facility] non-numeric results) [facility] Body surface area 2.1 m2 2.1 m2 [facility] formula Body mass index 27.8 kg/m2 27.8 kg/m2 [facility] (BMI) [Ratio] [facility] Body weight 90.71 kg 90.71 kg [facility] Body height 180.34 cm 180.34 cm [facility] Body temperature 98 [degF] 0 - 200 Normal (applies to 98 [degF] [facility] non-numeric results) [facility] Body temperature 36.6 Wanda 0 - 99.9 Normal (applies to 36.6 Wanda [facility] non-numeric results) [facility] Body surface area 2 m2 2 m2 [facility] formula Body mass index 26.2 kg/m2 26.2 kg/m2 [facility] (BMI) [Ratio] [facility] Body weight 85.27 kg 85.27 kg [facility] Body height 180.34 cm 180.34 cm [facility] Body temperature 98.4 [degF] 0 - 200 Normal (applies to 98.4 [degF ] [facility] non-numeric results) [facility] Body temperature 36.8 Wanda 0 - 99.9 Normal (applies to 36.8 Wanda [facility] non-numeric results) [facility] Diastolic blood 97 mm[Hg] 0 - 999 Above high normal 97 mm[Hg] [facility] pressure [facility] Diastolic blood 83 mm[Hg] 0 - 999 Normal (applies to 83 mm[Hg] [facility] pressure non-numeric results) [facility] Systolic blood 140 mm[Hg] 0 - 999 Above high normal 140 mm[Hg] [facility] Systolic blood 141 mm[Hg] 0 - 999 Above high normal 141 mm[Hg] [facility] pressure [facility] Oxygen saturation 98 % 0 - 999 Normal (applies to 98 % [facility] in Arterial blood non-numeric results) [facility] System by Pulse oximetry Respiratory rate 16 0 - 999 Normal (applies to 16 [facility] non-numeric results) [facility] Heart rate 98 0 - 999 Normal (applies to 98 [facility] non-numeric results) [facility] Diastolic blood 76 mm[Hg] 0 - 999 Normal (applies to 76 mm[Hg] [facility] pressure non-numeric results) [facility] Systolic blood 128 mm[Hg] 0 - 999 Normal (applies to 128 mm[Hg] [facility] pressure non-numeric results) [facility] Oxygen saturation 99 % 0 - 999 Normal (applies to 99 % [facility] in Arterial blood non-numeric results) Health System by Pulse oximetry Respiratory rate 16 0 - 999 Normal (applies to 16 [facility] non-numeric results) [facility] Heart rate 89 0 - 999 Normal (applies to 89 [facility] non-numeric results) [facility] Body temperature 36.7 Wanda 0 - 99.9 Normal (applies to 36.7 Wanda [facility] non-numeric results) [facility] Body temperature 98.2 [degF] 0 - 200 Normal (applies to 98.2 [degF ] [facility] non-numeric results) [facility] Body surface area 2 m2 2 m2 [facility] formula Body mass index 26.7 kg/m2 26.7 kg/m2 [facility] (BMI) [Ratio] [facility] Body weight 87.08 kg 87.08 [facility] Body height 180.34 cm 180.34 cm [facility] Body temperature 98 [degF] 0 - 200 Normal (applies to 98 [degF] [facility] non-numeric results) [facility] Body temperature 36.6 Wanda 0 - 99.9 Normal (applies to 36.6 Wanda [facility] non-numeric results) [facility] Diastolic blood 78 mm[Hg] 0 - 999 Normal (applies to 78 mm[Hg] [facility] pressure non-numeric results) [facility] Systolic blood 128 mm[Hg] 0 - 999 Normal (applies to 128 mm[Hg] [facility] pressure non-numeric results) [facility] Deprecated Oxygen 100 % 0 - 999 Normal (applies to 100 % [facility] saturation in non-numeric results) H ealth System Capillary blood by Oximetry Respiratory rate 16 0 - 999 Normal (applies to 16 [facility] non-numeric results) [facility] Heart rate 84 0 - 999 Normal (applies to 84 [facility] non-numeric results) [facility] Body surface area 2 m2 2 m2 [facility] formula Body mass index 25.7 kg/m2 25.7 kg/m2 [facility] Body weight 86.18 kg 86.18 kg [facility] Measured [facility] Body height 182.88 cm 182.88 cm [facility] Patient Treatment Plan of Care Planned Activity Planned Date Details Description Data Source (s) emtricitabine/rilpivirine/t 01/29/2020 [facility] enofovir alafenamide 200 04:56:11 PM EDT System mg-25 mg-25 mg oral tablet Escitalopram 10 MG Oral 08/08/2019 [facility] Tablet 03:54:35 PM EST System Lorazepam 0.5 MG Oral 08/06/2019 [facility] Tablet [Ativan] 05:21:03 PM EST System emtricitabine/rilpivirine/t 07/06/2019 [facility] enofovir alafenamide 200 02:40:06 PM EST System mg-25 mg-25 mg oral tablet emtricitabine/rilpivirine/t 07/06/2019 [facility] enofovir alafenamide 200 02:40:06 PM EST System mg-25 mg-25 mg oral tablet Meclizine Hydrochloride 25 07/05/2019 [facility] MG Oral Tablet 12:45:25 AM EST System Meclizine Hydrochloride 25 07/05/2019 [facility] MG Oral Tablet 12:45:25 AM EST System emtricitabine/rilpivirine/t 01/15/2019 [facility] enofovir alafenamide 200 09:02:30 AM EDT System mg-25 mg-25 mg oral tablet Ibuprofen 800 MG Oral 10/28/2018 [facility] Tablet [Ibu] 06:34:48 PM EDT System emtricitabine 200 MG / 06/16/2018 [facility] Rilpivirine 25 MG / 05:15:33 PM EST Syste m Tenofovir disoproxil fumarate 300 MG Oral Tablet emtricitabine 200 MG / 06/16/2018 [facility] Rilpivirine 25 MG / 05:15:33 PM EST [facility] Tenofovir disoproxil fumarate 300 MG Oral Tablet emtricitabine 200 MG / 06/16/2018 [facility] Rilpivirine 25 MG / 05:15:33 PM EST Sy[facility] Tenofovir disoproxil fumarate 300 MG Oral Tablet 4 ML penicillin G 04/21/2018 [facility] benzathine [id number] UNT/ML 09:11:49 AM EDT System Prefilled Syringe [Bicillin L-A] valacyclovir 1000 MG Oral 12/14/2017 [facility] Tablet 04:36:37 PM EDT System valacyclovir 1000 MG Oral 12/14/2017 [facility] Tablet 04:36:37 PM EDT System pneumococcal [facility]ent [facility] vaccine injectable solution 10:36:28 AM EDT System FluLaval Quadrivalent 04/20/2017 [facility] ntramuscular 11:04:19 AM EDT Sy stem suspension valacyclovir 500 MG Oral 04/20/2017 [facility] [Valtrex] 10:54:48 AM EDT System Sulfamethoxazole 800 MG / 04/20/2017 [facility] Trimethoprim 160 MG Oral 10:53:51 AM EDT System Tablet Sulfamethoxazole 800 MG / 04/20/2017 [facility] Trimethoprim 160 MG Oral 10:53:51 AM EDT System Tablet emtricitabine 200 MG / 09/27/2016 [facility] Rilpivirine 25 MG / 10:35:35 AM EDT Syste m Tenofovir disoproxil fumarate 300 MG Oral Tablet Folic Acid 1 MG Oral Tablet 09/27/2016 [facility] 10:35:17 AM EDT System Acyclovir 400 MG Oral 09/23/2016 [facility] Tablet 02:02:53 PM EDT System emtricitabine 200 MG / 11/04/2015 [facility] Rilpivirine 25 MG / 10:18:28 AM EDT Syste m Tenofovir disoproxil fumarate 300 MG Oral Tablet Acyclovir 400 MG Oral 07/28/2015 [facility] Tablet 10:02:56 AM EST System Sulfamethoxazole 800 MG / [facility]28/[facility] MG Oral 10:00:01 AM EST System Tablet [Bactrim] methotrexate 25 mg/mL 02/10/2015 [facility] injectable solution 03:05:02 PM EDT Syste m Sulfamethoxazole 800 MG / [facility] Trimethoprim 160 MG Oral 12:34:10 PM EDT System Tablet Methotrexate 2.5 MG Oral 01/13/2015 [facility] Tablet 03:30:54 PM EDT System Ibuprofen 400 MG Oral 12/30/2014 [facility] Tablet [Ibu] 12:00:00 AM EDT System Prednisone 20 MG Oral 12/30/2014 [facility] Tablet 12:00:00 AM EDT System emtricitabine 200 MG / 11/07/2014 [facility] Rilpivirine 25 MG / 10:07:53 AM EDT Syste m Tenofovir disoproxil fumarate 300 MG Oral Tablet isoniazid 300 MG Oral 10/05/2014 [facility] Tablet 03:09:11 PM EDT System emtricitabine 200 MG / 09/28/2014 [facility] Rilpivirine 25 MG / 11:18:09 AM EDT Syste m Tenofovir disoproxil fumarate 300 MG Oral Tablet Meclizine Hydrochloride 25 09/30/2012 [facility] Oral Tablet 04:56:58 PM EDT System
[2020-03-17 09:59] LABS: BASO % 0.9 % (0-2.0); HEMATOCRIT 42.7 % (35.4-49); HEMOGLOBIN 14.8 GM/dL (11.7-16.9); LYMPH % 20.9 % (8-40); MCH 29.1 pg (25.7-33.7); MCHC 34.6 g/dl (32.0-35.9); MEAN CELL VOLUME 84.1 fl (80-96); MEAN PLT VOLUME 9.4 fl (7.5-11.1); MONO % 12.8 % (3.8-10.2); NEUT % 62.4 % (42.8-82.8); PLATELET COUNT 179 K/MM3 (134-434); RBC 5.08 M/mm3 (4.00-5.60); RDW 14.3 % (11.9-15.9); WHITE BLOOD COUNT 4.7 K/mm3 (4.0-10.0)
[2020-03-17] MEDS ORDERED: ACETAMINOPHEN 500 MG TABLET (FP) PO ONE (10:00)
[2020-03-17] MEDS ORDERED: methylPREDNISolone NA SUCC 125 MG/2 ML VIAL IVPB ONE (10:00)
[2020-03-17] MEDS ORDERED: diphenhydrAMINE HCL 25 MG CAPSULE (FP) PO ONE (10:00)
[2020-03-17 10:28] LABS: ALBUMIN 3.8 g/dl (3.4-5.0); BILIRUBIN,TOTAL 0.5 mg/dL (0.2-1); BLOOD UREA NITROGEN 13.1 mg/dL (7-18); CREATININE 0.7 mg/dL (0.55-1.3); POTASSIUM 3.8 mmol/L (3.5-5.1); TOT PROT 7.4 g/dl (6.4-8.2)
[2020-03-17] MEDS ORDERED: RITUXIMAB 1,000 MG in DEXTROSE 5%-WATER - 400 ML IVPB ONE (10:30)
[2020-03-17] MEDS ORDERED: FAMOTIDINE 20 MG/50 ML IVPB 20 MG/50 ML MG IVPB ONE (12:00)
[2020-03-17] MEDS ORDERED: SODIUM CHLORIDE 500 ML IV ONE (12:00)
[2020-03-17 18:05] VITALS: BP 140/82; PULSE 88; TEMP 98.5
[2020-03-17] MEDS ORDERED: PORTA CATH FLUSH 10 ML IVPUSH ONE (18:17)
== END 2020-03-17 18:15 | disposition home or self-care (01) ==
LOC: JCHEMO 08:56
PROVIDERS: ATTEND Internal Medicine Rheumatology
DX: M33.92 Dermatopolymyositis, unspecified with myopathy (principal)
CPT/HCPCS: 36415; 80053; 85025; 96367; 96413; 96415; J9312

== ENCOUNTER 2020-03-31 07:13 | Day surgery (SDC) | payer OTHER ==
--- OUTSIDE RECORDS SUMMARY | 2020-03-31 07:29 | XMS ---
:1990 Author Organization [facility] Care Team Providers Name Role Phone Dylon Orta Unavailable Unavailable PRACHEIKH, BRUNA Unavailable Unavailable Cherrie Luna Unavailable Unavailable Dorina Graves MD Unavailable Unavailable Maximiliano Graves MD Unavailable Unavailable Maximiliano Graves MD Unavailable Unavailable Maximiliano Graves MD Unavailable Unavailable MD Ebony Unavailable Unavailable MD [...] is protected by Article 27-F of the [facility] Public Health law. If you continue you may haveaccess to information: Regarding HIV / AIDS; Provided by facilities licensed or operated by the [facility] Office of Mental Health; or Provided by the [facility] Office for People With Developmental Disabilities. If such information is present, then the following [facility] mandated warning applies: This information has been [...] law may result in a fine or penitentiary sentence or both. A general authorization for the release of medical or other information is NOT sufficient authorization for further disclosure. Encounters Encounter Providers Location Date Indications Data Source(s ) Outpatient Attender: Cherrie NUR 03/26/2020 [facility] Pearl Luna 09:40:00 AM Hospital EDT - 03/25/2020 11:59:00 PM EDT Patient discharged. Outpatient Attender: Cherrie NUR 03/19/2020 11:28:00 AM [facility] Audi Luna EDT - 03/19/2020 Hospital 11:59:00 PM EDT Patient discharged. Outpatient Attender: Cherrie NUR 03/11/2020 04:27:59 PM [facility] Audi Luna T - 03/12/2020 [facility] 11:59:00 PM EDT Patient discharged. Outpatient Attender: Cherrie NUR 03/05/2020 10:22:00 AM [facility] Admission cancelled. Disregard status an d admitted date. Outpatient Attender: Cherrie [address] [place] [address] 02/27/2020 09:09:00 AM [facility] 02/27/2020 Hospital 11:59:00 PM EDT Patient discharged. Outpatient Attender: Cherrie [address] [place] [address] 02/19[facility] 11:59:00 PM EDT Patient discharged. Outpatient Attender: Cherrie [address] [place] [address] 02/13/2020 10:33:00 AM [facility] 02/13/2020 Hospital 11:59:00 PM EDT Patient discharged. Emergency Attender: Willy ICU-EMERG 02/09/2020 CHEST S - Gabbie Scott MDAttender: 07:02:00 PM EDT HEAVINESS/ARMS AND Lali Doctor Other - 02/09/2020 [facility] 08:25:00 PM EDT CHEST HEAVINESS/ARMS AND LEGS PAIN Patient discharged. Outpatient Attender: [address] 02/07/2020 08:50:00 AM [facility] 02/07/2020 Hospital 11:59:00 PM EDT Patient discharged. Outpatient Attender: Cherrie [address] [place] [address] 02/06/2020 08:46:00 AM [facility] Admission cancelled. Disregard status an d admitted date. Outpatient Attender: Cherrie [address] [place] [address] 01/30/2020 02:50:00 PM [facility] 01/30/2020 Hospital 11:59:00 PM EDT Patient discharged. Outpatient Attender: Cherrie [address] [place] [address] 01/22/2020 01:23:06 PM [facility] 01/23/2020 Hospital 11:59:00 PM EDT Patient discharged. Outpatient Attender: Cherrie [address] [place] [address] 01/16/2020 08:53[facility] 11:59:00 PM EDT Patient discharged. Outpatient Attender: Cherrie [address] [place] [address] 01/09/2020 08:49:00 AM [facility] EDT - 01/09/2020 Hospital 11:59:00 PM EDT Patient discharged. [facility] 11:59:00 PM EDT Patient discharged. [facility] 01/01/2020 09:02:00 AM [facility] Hospital Admission cancelled. Disregard status an d admitted date. [facility]patient [facility] 12/24/2019 02:11:20 PM [facility] 12/25/2019 Hospital 11:59:00 PM EDT Patient discharged. [facility] 12/18/2019 10:37:00 AM [facility] 12/18/2019 Hospital 11:59:00 PM EDT Patient discharged. [facility] 09:19:00 AM [facility] - 12/04/2019 [facility] 11:59:00 PM EDT Patient discharged. Outpatient Attender: Cherrie Marley-SW CL 11/27/2019 09:34:00 AM [facility] - 11/27/2019 Hospital 11:59:00 PM EDT Patient discharged. Outpatient Attender: Sharath LemusMED CL 11/19/2019 10:14:00 AM LEANDRO Goodrich MD EDT - 11/19/2019 Hospita l 11:59:00 PM EDT Patient discharged. Emergency Attender: Aaliyah ICU-EMERG 11/11/2019 CHEST DISCOMFORT [facility] Randy Freeman EngAttender: Doctor 07:22:00 PM EDT [facility] - 11/11/2019 Hospital 10:02:00 PM EDT CHEST DISCOMFORT Patient discharged. Outpatient Attender: Sharath LemusLABCLNMV 08/08/2019 02:14:00 LEANDRO Goodrich MD PM EST - 08/08/2019 Hosp ital 11:59:00 PM EST Patient discharged. Emergency Attender: Dorina ICU-EMERG 08/06/2019 DIZZY/ HEART [facility] Randy Graves MDAttender: 03:39:00 PM EST - PALP R ochelle Doctor Other 08/06/2019 Hospital 05:12:00 PM EST DIZZY/ HEART PALP Patient discharged. Outpatient Attender: [id number] 07/16/2019 [facility] RERE, 08:33:00 AM EST Health Care RAdmitter: [id number] Radha Spence Outpatient Attender: MAU [facility]NA [facility]N 07:43:00 AM [facility] Outpatient Attender: Sharath Goodrich MD 5T-LABCL 07/05/2019 [facility] - Audi Franks NMV 03:02:00 PM EST - Hospita l 07/05/2019 11:59:00 PM EST Patient discharged. Emergency Attender: Toni ICU-EMERG 07/04/2019 L[facility] Randy Beck MDAttender: 09:31:00 PM EST - [place] Doctor Other 07/05/2019 Hospital 01:18:00 AM EST LIGHTHEADED Patient discharged. Outpatient Attender: MAU [facility] 08[facility]00 [facility] Care Corporati on Emergency Attender: Dylon ICU-JONY 06/25/2019 PANIC [facility] - Gabbie ShresthaattAttender: RG 11:07:00 AM EST - ATTACK/EM PRE [facility] Doctor Other 06/25/2019 SS 01:45:00 PM EST PANIC ATTACK/EMPRESS Patient discharged. Outpatient Attender: [id number] 06/11/2019 [facility] RERE, 08:24:00 AM [facility] Care RAdmitter: [id number] Radha Spence Outpatient Attender: MD Gallagher ICU-LAB 02/27/2019 S - Pete Arthur 04:47:00 PM EDT - Hospita l 02/27/2019 11:59:00 PM EDT Patient discharged. Medications Medication Brand Start Product Dose Route Administrative Pharmacy [facility] Indications Reaction Description Data Name Date Form Instructions Instructions Source(s) emtricitabi 658971 Q70120 active Odefs ey [facility] ne/rilpivir 2019 {tab( Health ine/tenofov 04:56: s)} System [...] package.Take with food. Escitalopram escitalopram 08/08/2019 1 Q67032 active Escitalopram [facility] 10 MG Oral 10 [...] impair the ability to drive or operate Trendyol. Use care until you become familiar with its effects. Lorazepam Ativan 08/06/2019 1 {tab(s)} H85840 active Ativan [facility] 0.5 MG Oral 0.5 mg 05:21:03 PM Health Tablet oral EST System [Ativan] tablet Ativan 0.5 mg oral tablet Caution federal law prohibits the transf er of this drug to any person other than the person for whom it was prescribed.Do not take this drug if you are .May cause drowsiness or dizziness. emtricitabine/rilpivirine/tenofovir [id number] 07/06/2019 1 C38 288 active Odefsey [facility] [...] in the original package.Take with food. emtricitabine/rilpivirine/tenofovir [id number] 07/06/2019 1 C38 288 active Boriseftameka [facility] alafenamide 200 mg-25 mg-25 mg oral [...] package.Take with food. Meclizine meclizine 07/05/2019 1 E00274 active Meclizine [facility] Hydrochloride 25 mg oral 12:45:25 AM {tab(s)} Hydrochloride Health 25 MG Oral tablet EST System Tablet meclizine 25 mg oral tablet May cause drowsiness. Alcohol may inten sify this effect. Use care when operating dangerous machinery. Meclizine meclizine 07/05/2019 1 H89321 active Meclizine [facility] Hydrochloride 25 mg oral 12:45:25 AM {tab(s)} Hydrochloride Health 25 MG Oral tablet EST System Tablet meclizine 25 mg oral tablet May cause drowsiness. Alcohol may inten sify this effect. Use care when operating dangerous machinery. emtricitabine/rilpivirine/tenofovir [id number] 01/15/2019 1 C38 288 active Odefsey [facility] [...] medication in the original package.Take with food. emtricitabine 200 MG / Rilpivirine emtricitabine/rilpivirine /tenofovir 06/16/2018 1 J26727 aborted Complera [facility] 25 MG / [...] MG / Rilpivirine emtricitabine/rilpivirine /tenofovir 06/16/2018 1 U21329 completed Complera M [facility] 25 MG / [...] action of t his medication.Take with food. valacyclovir valACYclovir 12/14/2017 1 A89210 completed Valacyclovir [facility] 1000 MG Oral 1 g oral 04:36:37 PM {tab(s)} Hydrochloride Health Tablet tablet EDT System valACYclovir 1 g oral tablet It is very important that you take or us e this exactly as directed. Do not skip doses or discontinue unless directed by your doctor. Sulfamethoxazole 800 MG / sulfamethoxazole-trimethoprim 04/20/2017 1 C32624 active Sulfamethoxazole-Trimethoprim [facility] Trimethoprim 160 MG Oral 800 mg-160 mg oral tablet 10:53:51 AM {tab( s)} Health Tablet EDT System sulfamethoxazole-trimethoprim 800 mg-160 mg oral tablet Avoid prolonged or excessive exposure to direct and/or artificial sunlight while taking this medication.Finish all this m edication unless otherwise directed by prescriber.Medication should be taken wi th plenty of water. Insurance Providers Payer name Policy type / Policy ID Covered Covered Policy Plan Coverage type republican ID republican's Bryant Inform ation relationship to bryant [facility] [place] [id number] [place] [id number] [facility] Medicaid [id number] 1 [id number] Medicaid Medicaid [id number] [facility] Medicaid Medicaid [id number] 1 [id number] [facility] Medicaid Medicaid [id number] 1 [id number] [facility] Medicaid [id number] 1 [id number] 72A Medicaid Medicaid [id number] [facility] Medicaid [id number] 1 [id number] [facility] Health Plan Commercial [id number] 1 [id number] Inc [facility] Health Plan Commercial [id number] 1 [id number] Inc Self Pay Self Pay 1 [facility] Medicaid [id number] 1 [id number] Fin Assist Fee Self Pay 1 Code 1 Self Pay Self Pay 1 [facility] Medicaid [id number] 1 [id number] Fin Assist Fee Self Pay 1 Code 1 Workers' Commercial [id number] Compensation Problems, Conditions, and Diagnoses Code Display Name Description Problem Type Effective Data Sour ce(s) Dates F41.1 Generalized anxiety Generalized anxiety 99165-0 020 [facility] disorder with panic disorder with panic 12:00:0 0 AM Health System attacks attacks EST M33.90 Dermatomyositis Dermatomyositis 12013-2 07/06/2019 [facility] 12:00:00 AM Health System EST Z21 Asymptomatic human Asymptomatic human 53783-0 0 [facility] infection virus infection EST F41.1 Generalized anxiety Generalized anxiety Diagnosis 020 [facility] disorder disorder with panic 04:04:28 PM David on attacks EDT Hospital 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, Dermatomyositis Diagnosis 03/28/2020 [facility] unspecified, organ 04:04:28 PM Verno n involvement EDT Hospital unspecified Z21 Asymptomatic human Asymptomatic human Diagnosis 0 [facility] immunodeficiency immunodeficiency 04:04:28 PM V abbey virus [HIV] virus infection EDT Hospital infection status F41.9 Anxiety disorder, Anxiety disorder Diagnosis 03/25/2020 [facility] unspecified 09:40:00 AM [facility] F41.1 Generalized anxiety Generalized anxiety Diagnosis 020 [facility] disorder disorder with panic 07:02:00 PM Roch sonam attacks ED Hospital 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, Dermatomyositis Diagnosis 02/09/2020 S - New unspecified, organ 07:02:00 PM Raman lle involvement [facility] Hospital unspecified CHEST HEAVINESS/ARMS CHEST HEAVINESS/ARMS Diagnosis 02/08 S - New AND LEGS PAIN AND LEGS PAIN 07:02:00 PM [facility] e [facility] Hospital Z21 Asymptomatic human Asymptomatic human Diagnosis 0 S - New immunodeficiency immunodeficiency 07:02:00 PM R reginaldo virus [HIV] virus infection EDT Hospital infection status I77.6 Arteritis, Arteritis Diagnosis 02/09/2020 S - New unspecified 07:02:00 PM [facility] M33.10 Other Other Diagnosis 11/11/2019 S - New dermatomyositis, dermatomyositis, 07:22:00 PM R ochelle organ involvement organ involvement [facility] unspecified unspecified R07.89 Other chest pain Other chest pain Diagnosis 11/11/2019 S - New 07:22:00 PM [facility] B20 Human HIV disease Diagnosis 11/11/2019 S - New immunodeficiency 07:22:00 PM [facility] e virus [HIV] disease EDT Hospi loree CHEST DISCOMFORT CHEST DISCOMFORT Diagnosis 11/11/2019 S - New 07:22:00 PM [facility] F41.9 Anxiety disorder, Anxiety disorder Diagnosis 11/11/2019 M [facility] - [facility] unspecified 07:22:00 PM [facility] F32.9 Major depressive Major depressive Diagnosis 08/06/2019 S - New disorder, single disorder with single 03:39:00 PM Lali episode, unspecified episode EST Hosp ital DIZZY/ HEART PALP DIZZY/ HEART PALP Diagnosis 08/06/2019 [facility] 03:39:[address] [facility] Z13.84 Encounter for ENCOUNTER FOR Diagnosis 07/16/2019 [facility] screening for dental SCREENING FOR DENTAL 08:33 :00 AM [facility] Health disorders DISORDERS [facility] K05.10 Chronic gingivitis, CHRONIC GINGIVITIS, Diagnosis 020 [place] plaque induced PLAQUE INDUCED 07:43:00 AM [facility] R42 Dizziness and Vertigo Diagnosis 07/05/2019 [facility] giddiness 03:02:00 PM [facility] B20 Human HIV infection Diagnosis 07/05/2019 [facility] immunodeficiency 12:00:00 AM [place] virus [HIV] disease EST Hospi loree LIGHTHEADED LIGHTHEADED Diagnosis 07/04/2019 [facility] 09:31:[address] [facility] R42 Dizziness and Dizziness and Diagnosis 07/04/2019 [facility] w giddiness giddiness 09:31:[address] [facility] Z21 Asymptomatic human ASYMPTOMATIC HUMAN Diagnosis 0 [place] immunodeficiency IMMUNODEFICIENCY 08:59:00 AM [facility] virus [HIV] VIRUS INFECTION EST Care infection status STATUS Corporat ion Z01.20 Encounter for dental ENCOUNTER FOR DENTAL Diagnosis 07/02 [place] examination and EXAM AND CLEANING 08:59:00 AM [facility] cleaning without W/O ABNORMAL EST Care abnormal findings FINDINGS Corpora tion R20.2 Paresthesia of skin Paresthesia Diagnosis 06/25/2019 [facility] 11:07:[address] [facility] PANIC ATTACK/EMPRESS PANIC ATTACK/EMPRESS Diagnosis 06/25 [facility] 11:07:[address] [facility] Surgeries/Procedures Procedure Description Date Indications Data Source(s) XR Chest Single AP view XR 11/11/2019 [facility] Chest Single AP view 08:23:00 PM System EDT - 11/11/2019 08:23:00 PM EDT Electrocardiographic 11/11/2019 [facility] procedure (procedure) 07:35:30 PM System EDT - 11/11/2019 09:25:00 PM EDT HIV-1 Ultrasensitive 07/06/2019 [facility] RNA,QN,RT-PCR Monitoring (ID 08:15:00 AM System ONLY) Copies/ML EST - 07/06/2019 08:15:00 AM EST Venipuncture 07/06/2019 [facility] Heal th 08:14:16 AM System EST - 07/06/2019 10:00:05 AM EST Human immunodeficiency virus 07/06/2019 [facility] antibody titer measurement 08:14:16 AM S ystem (procedure) EST - 07/06/2019 08:15:00 AM EST XR Chest PA and Left Lateral 07/04/2019 [facility] Health XR Chest PA and Left Lateral 10:34:00 PM System EST - 07/04/2019 10:34:00 PM EST Electrocardiographic 07/04/2019 [facility] procedure (procedure) 10:19:14 PM System EST - 07/04/2019 10:29:00 PM EST Electrocardiographic 06/25/2019 [facility] procedure (procedure) 11:31:00 AM System EST - 06/25/2019 01:33:00 PM EST HIV-1 Ultrasensitive 02/27/2019 [facility] RNA,QN,RT-PCR Monitoring (ID 05:17:50 PM System ONLY) Copies/ML EDT - 02/27/2019 05:17:50 PM EDT Venipuncture 02/27/2019 [facility] 04:53:23 PM System EDT - 02/27/2019 06:00:05 PM EDT Results ID Date Data Source [id number] 04/13/2011 06:12:15 PM EDT [facility] System Name Value Range Interpretation Description Data Sup porting Code Source(s) Document(s ) Aldolase 9.2 U/L Above high normal Aldolase, [facility] [Enzymatic Serum Health System activity/vol ume] in Serum or Plasma ID Date Data Source [id number] 04/13/2011 06:12:15 PM EDT [facility] System Name Value Range Interpretation Description Data Sup porting Code Source(s) Document(s ) Erythrocyte 10 Normal (applies Sedimentation [facility] sedimentation {mmlhr} to non-numeric Rate, Health rate by 2H results) Erythrocyte System Westergren method ID Date Data Source [id number] 04/13/2011 06:12:15 PM EDT [facility] System Name Value Range Interpretation [...] concentration [Mass/volume] by Automated count Erythrocyte mean 29.2 pg Normal (applies MCH [facility] corpuscular to non-numeric Health hemoglobin results) System [Entitic mass] by Automated count Platelet mean 9.4 fl Normal (applies MPV [facility] volume [Entitic to non-numeric Health volume] in Blood results) System by Automated count Erythrocyte 13.5 % Normal [...] Neutrophil Health Body fluid uL} Count System Monocytes 0.4 Normal (applies Monocyte [facility] [#/volume] in {10\\S\\3_ to non-numeric Count Health Blood by Manual uL} results) System count Monocytes/100 4 % Above high normal Monocyte % [facility] leukocytes in Health Blood System Lymphocyte 0.7 Below low normal Lymphocyte [facility] percent {10\\S\\3_ Absolute Health differential uL} System count (procedure) Eosinophils/100 1 % Below low normal Eosinophil % [facility] leukocytes in Health Unspecified System specimen Neutrophils/100 89.3 % Above high normal Neutrophil % [facility] leukocytes in Health Blood by System Automated count Basophils/100 0 % Normal (applies Basophil % [facility] leukocytes in to non-numeric Health Unspecified results) System specimen by Manual count Lymphocytes 6 % Below low normal Lymphocyte % [facility] [#/volume] in Health Blood by System Automated count ID Date Data Source [id number] 04/13/2011 06:12:15 PM EDT [facility] Name Value Range Interpretation Description Data Sup porting Code Source(s) Document(s ) Potassium 4.2 mmol/L Normal (applies Potassium, [facility] [Mass/volume] to non-numeric Serum Health in Serum or results) System Plasma Sodium 139 mmol/L Normal (applies Sodium, [facility] [Moles/volume] to non-numeric Serum Health in Serum or results) System Plasma TotalProtein 7.1 mg/dl Normal (applies Total [facility] to non-numeric Protein Health results) System Chloride 102 mmol/L Normal (applies Chloride, [facility] [Moles/volume] to non-numeric Serum Health in Serum or results) System Plasma Carbon dioxide, 29.3 mmol/L Normal (applies CO2, Serum Calderon patience total to non-numeric Health [Moles/volume] results) System in Serum or Plasma Alkaline 54 {IU/L} Normal (applies Alkaline [...] Serum or results) Serum System Plasma Glucose 101 mg/dL Normal (applies Glucose, [facility] [Mass/volume] to non-numeric Serum Health in Serum or results) System Plasma Aspartate 23 {IU/L} Normal (applies [...] urine test abnormalities ID Date Data Source [id number] 04/13/2011 06:12:15 PM EDT [facility] System Name Value Range Interpretation Description Data Sup porting Code Source(s) Document(s ) Creatine 188 Normal (applies Creatine [facility] kinase.MB {IU/L} to non-numeric Kinase, Serum Health Syst em [Mass/volume results) ] in Serum or Plasma ID Date Data Source [id number] 05/26/2011 12:00:00 AM EST [facility] Name Value Range Interpretation Description Data Sup porting Code Source(s) Document(s ) Specific gravity 1.028 Normal (applies Urine Specific [facility] of Urine to non-numeric [facility] results) System Color Yellow Normal (applies Color [facility] to non-numeric Health results) System Appearance of CLEAR Normal (applies Urine [facility] Urine to non-numeric Appearance Health results) System Protein TR Normal (applies Protein [facility] [Mass/volume] in to non-numeric Health Serum or Plasma results) System pH.. 5.5 Normal (applies pH.. [facility] {pH_units} to non-numeric Health results) System Glucose,UA Negative Normal (applies Glucose, UA [facility] to non-numeric Health results) System Ketones Negative Normal (applies Ketones UA [facility] [Mass/volume] in to non-numeric Health Urine results) System BilirubinUrine Negative Normal (applies Bilirubin [...] [facility] to non-numeric Health results) System UrineBlood Negative Normal (applies Urine Blood [facility] to non-numeric Health results) System RedBloodCells 1 {/HPF} Normal (applies Red Blood [facility] to non-numeric Cells Health results) System ID Date Data Source [id number] 05/26/2011 12:00:00 AM EST [facility] alth System Name Value Range Interpretation Description Data Sup porting Code Source(s) Document(s ) aPTT in Blood 36.6 Above high Activated [facility] by Coagulation {Seconds normal Partial Health assay } Thromboplastin System Time ID Date Data Source [id number] 05/26/2011 12:00:00 AM EST [facility] He alth [...] Heart = 3.0-4.5 ID Date Data Source [id number] 05/26/2011 12:00:00 AM EST [facility] [...] [Entitic results) System volume] by Automated count Platelet mean 9.2 fl Normal (applies MPV [facility] volume [Entitic to non-numeric Health volume] in Blood results) System by Automated count Platelets 198 Normal (applies Platelet [facility] [#/volume] in {10\\S\\3_ to non-numeric Count Health Plasma by uL} results) System Automated count Neutrophils 5.6 Normal (applies Absolute [facility] [#/volume] in {10\\S\\3_ to non-numeric Neutrophil Health Body fluid uL} results) Count System Eosinophils 0.0 Normal (applies Eosinophil [facility] [#/volume] in {10\\S\\3} to non-numeric Count Blood Health Blood results) System Monocytes 0.9 Above high normal Monocyte [facility] [#/volume] in {10\\S\\3_ Count Health Blood by Manual uL} System count Lymphocyte 1.1 Below low normal Lymphocyte [facility] percent {10\\S\\3_ Absolute Health differential uL} System count (procedure) Basophils 0.00 Normal (applies Basophil [facility] [#/volume] in {10\\S\\3_ to non-numeric Count Health Blood by uL} results) System Automated count Neutrophils/100 73.5 % Normal (applies Neutrophil % [...] System Automated count ID Date Data Source [id number] 05/26/2011 12:00:00 AM EST [facility] Name Value Range Interpretation Description Data Sup porting Code Source(s) Document(s ) Potassium 4.1 Normal (applies Potassium, [facility] [Mass/volume] mmol/L to non-numeric Serum Health Syst em in Serum or results) Plasma Sodium 138 Normal (applies Sodium, Serum [facility] [Moles/volume mmol/L to non-numeric Health Syst em ] in Serum or results) Plasma Chloride 102 [...] em in Serum or results) Serum Plasma Calcium 9.5 Normal (applies Calcium, Total [facility] [Mass/volume] mg/dl to non-numeric Serum Health Syst em in Serum or results) Plasma Anion gap in 7.50 Normal (applies Anion Gap [facility] Serum or mmol/L to non-numeric Health System Plasma results) ID Date Data Source [id number] 05/26/2011 12:00:00 AM EST [facility] Name Value Range Interpretation Description Data Sup porting Code Source(s) Document(s ) Creatine 189 Normal (applies Creatine [facility] kinase.MB {IU/L} to non-numeric Kinase, Serum Health Syst em [Mass/volume results) ] in Serum or Plasma ID Date Data Source [id number] 06/03/2011 12:00:00 AM EST [facility] [...] consultation. Slides of prior anal canal biopsy, [id number] and [id number] were reviewed and concur with the diagnosis.Case [...] specimen is submitted in toto in one cassette.[email or web address]@ ID Date Data Source [id number] 07/02/2011 04:02:04 PM [facility] System Name Value Range Interpretation Description Data Sup porting Code Source(s) Document(s ) SpecialVirologyTe Nonreactive Normal (applies Special [facility] sting Reference to non-numeric Virology Health Range: results) Testing System nonreactive ID Date Data Source [id number] 07/10/2011 12:00:00 AM [facility] System Name Value Range Interpretation Description Data Sup porting Code Source(s) Document(s ) Bands 11 % Above high normal Bands [facility] Polys 49 % Below low normal Polys [facility] System Platelets Adequate Normal (applies Platelet Count [facility] [#/volume] in to non-numeric Estimate Health Blood by results) System Estimate Variant 1 % Above upper panic Atypical [facility] lymphocytes limits Lymphocyte Health [Presence] in Count [...] 21 % Above high normal Monocyte % [facility] Health leukocytes in Blood System ID Date Data Source [id number] 07/10/2011 12:00:00 AM EST [facility] System Name Value Range Interpretation Description Data Sup porting Code Source(s) Document(s ) Erythrocytes 4.94 Normal (applies RBC Count [facility] [#/volume] in {10\\S\\6_ to non-numeric Health Blood by uL} results) System Automated count Hemoglobin 14.2 Normal (applies Hemoglobin, [facility] [Mass/volume] in {gm/dL} to non-numeric Whole Blood Health Blood results) System Leukocytes 3.8 Below low normal WBC Count [facility] [#/volume] in {10\\S\\3_ Health Unspecified uL} System specimen by Automated count Hematocrit 42.4 % Normal (applies Hematocrit, [facility] [...] by Automated count ID Date Data Source [id number] 07/10/2011 12:00:00 AM EST [facility] [...] non-numeric Protein Health results) System Carbon dioxide, 29.3 mmol/L Normal (applies CO2, Serum Calderon patience total to non-numeric Health [Moles/volume] results) System in Serum or Plasma Urea nitrogen 7 mg/dl Below low Blood Urea [facility] [Mass/volume] normal Nitrogen, Health in Serum or Serum System Plasma Glucose 76 mg/dL Normal (applies Glucose, [facility] [Mass/volume] to non-numeric Serum Health in Serum or results) System Plasma Alkaline 63 {IU/L} Normal (applies Alkaline [facility] phosphatase to non-numeric Phosphatase, Health isoenzymes results) Serum System [Enzymatic activity/volume ] in Serum or Plasma by Heat stability Creatinine 0.87 mg/dl Normal (applies Creatinine, [facility] [Mass/volume] to non-numeric Serum Health in Serum or results) System Plasma Aspartate 59 {IU/L} Above high Aspartate [facility] aminotransferas normal Transaminase Health e [Enzymatic , Serum System activity/volume ] in Serum or Plasma by With P-5'-P Bilirubin.total 0.4 mg/dl Normal (applies Bilirubin, [facility] [Mass/volume] to non-numeric Serum Total Health in Serum or results) System Plasma Albumin 4.2 {gm/dl} Normal (applies Albumin, [facility] [Mass/volume] to non-numeric Serum Health in Serum or results) System Plasma I.Phosphorus 4.5 mg/dl Normal (applies I. [facility] to non-numeric Phosphorus Health results) System A/GRatio 1.50 Normal (applies A/G Ratio [facility] to non-numeric Health results) System Alanine 34 {IU/L} Normal (applies Alanine [facility] aminotransferas to non-numeric Aminotransfe Health e [Enzymatic results) rase, Serum System activity/volume ] in Serum or Plasma Calcium 8.9 mg/dl Normal (applies Calcium, [facility] [Mass/volume] to non-numeric Total Serum Health in Serum or results) System Plasma Anion gap in 7.70 mmol/L Normal (applies Anion Gap [facility] Serum or Plasma to non-numeric Health results) System Urate 5.6 [...] urine test abnormalities ID Date Data Source [id number] 07/10/2011 12:53:00 AM EST [facility] System Name Value Range Interpretation Description Data Sup porting Code Source(s) Document(s ) Color Yellow Normal (applies Color [facility] to non-numeric Health results) System Appearance of CLEAR Normal (applies Urine [facility] Urine to non-numeric Appearance Health results) System pH.. 6.0 Normal (applies pH.. [facility] {pH_units} to non-numeric Health results) System Specific gravity 1.020 Normal (applies Urine Specific [facility] of Urine to non-numeric [facility] results) System Protein TR Normal (applies [...] Unspecified results) System specimen by Wet preparation RedBloodCells Less than 1 Normal (applies Red Blood [facility] /HPF to non-numeric Cells Health results) System Mucus RARE Normal (applies Mucus [facility] to non-numeric Health results) System UrineBlood Negative Normal (applies Urine Blood [facility] to non-numeric Health results) System ID Date Data Source [id number] 07/10/2011 02:30:00 AM EST [facility] Name [...] Unspecified results) specimen ID Date Data Source [id number] 07/10/2011 08:57:49 AM EST [facility] System Name Value Range Interpretation Description Data Sup porting Code Source(s) Document(s ) Deprecated NO GROWTH Aerobic [facility] Bacteria Culture, Urine Health System identified in Urine by Aerobe culture ID Date Data Source [id number] 07/10/2011 09:00:15 AM EST [facility] System Name Value Range Interpretation Description Data Sup porting Code Source(s) Document(s ) Bacteria NO GROWTH Cult Bacteria [facility] identified in Blood Health System Blood by Aerobe culture ID Date Data Source [id number] 08/02/2011 02:23:32 PM EST [facility] System Name Value Range Interpretation Description Data Sup porting Code Source(s) Document(s ) Color Yellow Normal (applies Color [facility] to non-numeric Health results) System Appearance of CLEAR Normal (applies Urine [facility] Urine to non-numeric Appearance Health results) System Specific gravity 1.026 Normal (applies Urine Specific [facility] of Urine to non-numeric [facility] results) System pH.. 6.0 Normal (applies [...] [Units/volume] results) Concentration System in Urine Leukocytes Less than 1 Normal (applies White Blood [facility] [#/volume] in /HPF to non-numeric Cells Health Unspecified results) System specimen by Automated count RedBloodCells Less than 1 Normal (applies Red Blood [facility] /HPF to non-numeric Cells Health results) System Epithelial cells Less than 1 Normal (applies Epithelial [facility] [Presence] in /HPF to non-numeric Cells Health Unspecified results) System specimen by Wet preparation UrineBlood Negative Normal (applies Urine Blood [facility] to non-numeric Health results) System Mucus OCC Normal (applies Mucus [facility] to non-numeric Health results) System ID Date Data Source [id number] 08/02/2011 02:23:32 PM EST [facility] Name Value Range Interpretation Description Data Sup porting Code Source(s) Document(s ) Polys 52 % Below low normal Polys [facility] Platelets Adequate Normal (applies Platelet Count [facility] [#/volume] in to non-numeric Estimate Health Blood by results) System Estimate NORM yes. Normal (applies NORM [facility] to non-numeric Health results) System Monocytes/100 19 % Above high normal Monocyte % [facility] leukocytes in Health Blood System Lymphocytes 27 % Normal (applies Lymphocyte % [facility] [#/volume] in to non-numeric Health Blood by results) System Automated count Eosinophils/10 2 % Normal (applies Eosinophil % [facility] 0 leukocytes to non-numeric Health in Unspecified results) System specimen ID Date Data Source [id number] 08/02/2011 02:23:32 PM EST [facility] Name Value Range Interpretation Description Data Sup porting Code Source(s) Document(s ) Erythrocytes 4.63 Below low normal RBC Count [facility] [#/volume] in {10\\S\\6_ Health Blood by uL} System Automated count Leukocytes 5.4 Normal (applies WBC Count [facility] [#/volume] in {10\\S\\3_ to non-numeric Health Unspecified uL} results) System specimen by Automated count Hematocrit 39.2 % Below low normal Hematocrit, [facility] [Volume Whole Blood Health Fraction] of System Blood Hemoglobin 13.3 Below low normal Hemoglobin, [facility] [Mass/volume] in {gm/dL} Whole Blood Health Blood System Erythrocyte mean 84.7 fl Normal (applies MCV [facility] corpuscular to non-numeric Health volume [Entitic results) System volume] by Automated count Erythrocyte mean 28.6 pg Normal (applies MCH [facility] corpuscular to non-numeric Health hemoglobin results) System [Entitic mass] by Automated count Erythrocyte 13.4 % Normal (applies RDW [facility] distribution to non-numeric Health width [Entitic results) System volume] by Automated count Erythrocyte mean 33.8 Normal (applies MCHC [facility] corpuscular {gm/dL} to non-numeric Health hemoglobin results) System concentration [Mass/volume] by Automated count Platelets 171 Normal (applies Platelet [facility] [#/volume] in {10\\S\\3_ to non-numeric Count Health Plasma by uL} results) System Automated count Platelet mean 8.9 fl Normal (applies MPV [facility] volume [Entitic to non-numeric Health volume] in Blood results) System by Automated count ID Date Data Source [id number] 08/02/2011 02:23:32 PM EST [facility] Name Value Range Interpretation Description Data Sup porting Code Source(s) Document(s ) Sodium 137 mmol/L Normal (applies Sodium, [facility] [Moles/volume] to non-numeric Serum Health in Serum or results) System Plasma Potassium 4.2 mmol/L Normal (applies Potassium, [facility] [Mass/volume] to non-numeric Serum Health in Serum or results) System Plasma Carbon dioxide, 29.4 mmol/L Normal (applies CO2, Serum Calderon patience total to non-numeric Health [Moles/volume] results) System in Serum or Plasma Chloride 103 mmol/L Normal (applies Chloride, [facility] [Moles/volume] to non-numeric Serum Health in Serum or results) System Plasma TotalProtein 7.0 mg/dl Normal (applies Total [facility] to non-numeric Protein Health results) System Glucose 90 mg/dL Normal (applies Glucose, [facility] [...] non-numeric Health results) System Anion gap in 4.60 mmol/L Normal (applies Anion Gap [facility] Serum or Plasma to non-numeric Health results) System Urate 6.7 [...] urine test abnormalities ID Date Data Source [id number] 08/02/2011 02:23:32 PM EST [facility]ie [facility] System Name Value Range Interpretation Description Data Sup porting Code Source(s) Document(s ) Creatine 1830 Above high normal Creatine [facility] kinase.MB {IU/L} Kinase, Serum Health System [Mass/volume ] in Serum or Plasma ID Date Data Source [id number] 08/16/2011 11:46:00 AM EST [facility] System Name Value Range [...] Whole Blood Health Blood results) System Hematocrit 44.8 % Normal (applies Hematocrit, [facility] [Volume to non-numeric Whole Blood Health Fraction] of results) System Blood Erythrocyte mean 85.5 fl Normal (applies MCV [...] System concentration [Mass/volume] by Automated count Platelets 196 Normal (applies Platelet [facility] [#/volume] in {10\\S\\3_ to non-numeric Count Health Plasma by uL} results) System Automated count Erythrocyte 13.6 % Normal (applies RDW [facility] distribution to non-numeric Health width [Entitic results) System volume] by Automated count Monocytes 0.9 Above high normal Monocyte [facility] [#/volume] in {10\\S\\3_ Count Health Blood by Manual uL} System count Platelet mean 8.5 fl Normal (applies MPV [facility] volume [Entitic to non-numeric Health volume] in Blood results) System by Automated count Eosinophils 0.1 Normal (applies Eosinophil [facility] [#/volume] in {10\\S\\3} to non-numeric Count Blood Health Blood results) System Basophils 0.00 Normal (applies Basophil [facility] [#/volume] in {10\\S\\3_ to non-numeric Count Health Blood by uL} results) System Automated count Neutrophils 4.6 Normal (applies Absolute [facility] [#/volume] in {10\\S\\3_ to non-numeric Neutrophil Health Body fluid uL} results) Count System Neutrophils/100 66.7 % Normal (applies Neutrophil % Calderon patience leukocytes in to non-numeric Health Blood by results) System Automated count Lymphocyte 1.3 Normal (applies Lymphocyte [facility] percent [...] non-numeric Health Unspecified results) System specimen Lymphocytes 19 % Normal (applies Lymphocyte % [facility] [#/volume] in to non-numeric Health Blood by results) System Automated count ID Date Data Source [id number] 08/16/2011 11:46:00 AM EST [facility] [...] Serum or results) Serum System Plasma Glucose 85 mg/dL Normal (applies Glucose, [facility] [Mass/volume] to non-numeric Serum Health in Serum or results) System Plasma Creatinine 0.78 mg/dl Normal (applies Creatinine, [facility] [Mass/volume] to non-numeric Serum Health in Serum or results) System Plasma Alkaline 71 {IU/L} Normal (applies Alkaline [facility] phosphatase to non-numeric Phosphatase, Health isoenzymes results) Serum System [Enzymatic activity/volume ] in Serum or Plasma by Heat stability Bilirubin.total 0.8 mg/dl Normal (applies Bilirubin, [facility] [Mass/volume] to non-numeric Serum Total Health in Serum or results) System Plasma Aspartate 40 {IU/L} Normal (applies Aspartate [facility] [...] activity/volume ] in Serum or Plasma I.Phosphorus 4.9 mg/dl Normal (applies I. [facility] to non-numeric Phosphorus Health results) System Calcium 9.5 mg/dl Normal (applies Calcium, [facility] [Mass/volume] to non-numeric Total Serum Health in Serum or results) System Plasma Urate 6.4 mg/dl Normal (applies Uric Acid, [facility] [Mass/volume] to non-numeric Serum Health in Serum or results) System Plasma A/GRatio 1.21 Normal (applies A/G Ratio [facility] to non-numeric Health results) System Glomerular Greater [...] Health results) System ID Date Data Source [id number] 08/16/2011 11:46:00 AM EST [facility] Name Value Range Interpretation Description Data Source(s ) Supporting Code Document(s ) Lipase 28 U/L Normal (applies to Lipase, Serum [facility] [Enzymatic non-numeric Health System activity/vo results) lume] in Serum or Plasma ID Date Data Source [id number] 08/16/2011 11:46:00 AM EST [facility] Name Value Range Interpretation Description Data Sup porting Code Source(s) Document(s ) Creatine 566 Above high normal Creatine [facility] kinase.MB {IU/L} Kinase, Serum Health System [Mass/volume ] in Serum or Plasma ID Date Data Source [id number] 08/16/2011 11:46:00 AM EST [facility] System Name Value Range Interpretation Description Data Sup porting Code Source(s) Document(s ) Amylase 87 {IU/L} Normal (applies to Amylase, Serum [facility] [Enzymatic non-numeric Health System activity/vo results) lume] in Serum or Plasma ID Date Data Source [id number] 08/18/2011 01:15:50 PM EST [facility] System Name Value Range Interpretation Description Data Sup porting Code Source(s) Document(s ) aPTT in Blood 40.5 Above high Activated [facility] by Coagulation {Seconds normal Partial Health assay } Thromboplastin System Time ID Date Data Source [id number] 08/18/2011 01:15:50 PM EST [facility] System Name Value Range Interpretation Description Data Sup porting Code Source(s) Document(s ) Prothrombin Ab 1.21 Above high normal INR Result [facility] [Units/volume] {Ratio} Health System in Serum or Plasma Normal = 0.7-1.1Therapeutic = 2.0-3.0Mec hanical Heart = 3.0-4.5 Prothrombintime(PT) 13.70 Normal (applies to Prothrom bin time [facility] non-numeric (PT) System results) ID Date Data Source [id number] 08/18/2011 01:15:50 PM EST [facility] System Name Value Range Interpretation Description Data Sup porting Code Source(s) Document(s ) Erythrocyte 7 Normal (applies Sedimentation [facility] sedimentation {mmlhr} to non-numeric Rate, Health rate by 2H results) Erythrocyte System Westergren method ID Date Data Source [id number] 08/18/2011 01:15:50 PM EST [facility] [...] Blood by results) System Automated count Monocytes/100 13 % Above high normal Monocyte % [facility] leukocytes in Health Blood System Eosinophils/100 1 % Normal (applies Eosinophil % Calderon patience leukocytes in to non-numeric Health Unspecified results) System specimen Basophils/100 0 % Normal (applies Basophil % [facility] leukocytes in to non-numeric Health Unspecified results) System specimen by Manual count Lymphocytes 21 % Normal (applies Lymphocyte % [facility] [#/volume] in to non-numeric Health Blood by results) System Automated count ID Date Data Source [id number] 08/18/2011 01:15:50 PM EST [facility] Name Value Range Interpretation Description Data Sup porting Code Source(s) Document(s ) Potassium 4.1 mmol/L Normal (applies Potassium, [facility] [Mass/volume] to non-numeric Serum Health in Serum or results) System Plasma Sodium 136 mmol/L Normal (applies Sodium, [facility] [Moles/volume] to non-numeric Serum Health in Serum or results) System Plasma Chloride 104 mmol/L Normal (applies Chloride, [facility] [Moles/volume] to non-numeric Serum Health in Serum or results) System Plasma Carbon dioxide, 25.9 mmol/L Normal (applies CO2, Serum Calderon patience total to non-numeric Health [Moles/volume] results) System in Serum or Plasma Glucose 86 mg/dL Normal (applies Glucose, [facility] [Mass/volume] to non-numeric Serum Health in Serum or results) System Plasma TotalProtein 7.9 mg/dl Normal (applies Total [facility] to non-numeric Protein Health results) System Urea nitrogen 11 mg/dl Normal (applies Blood Urea [facility] [Mass/volume] to non-numeric Nitrogen, Health in Serum or results) Serum System Plasma Creatinine 0.91 mg/dl Normal (applies [...] in Serum or results) System Plasma Aspartate 48 {IU/L} Above high Aspartate [facility] aminotransferas normal Transaminase Health e [Enzymatic , Serum System activity/volume ] in Serum or Plasma by With P-5'-P I.Phosphorus 4.3 mg/dl Normal (applies I. [facility] to non-numeric Phosphorus Health results) System Albumin 4.3 {gm/dl} Normal (applies Albumin, [facility] [...] urine test abnormalities ID Date Data Source [id number] 08/18/2011 01:15:50 PM EST [facility] System Name Value Range Interpretation Description Data Sup porting Code Source(s) Document(s ) Creatine 665 Above high normal Creatine [facility] kinase.MB {IU/L} Kinase, Serum Health System [Mass/volume ] in Serum or Plasma ID Date Data Source [id number] 08/25/2011 12:00:00 AM EST Jeanie grey System Name Value Range Interpretation Description Data Sup porting Code Source(s) Document(s ) TissueExam SEE TEXT CLINICAL Normal (applies Tissue Exam [facility] INFORMATION: Anal to non-numeric Health condyloma.PREOPER results) System ATIVE DIAGNOSIS: Same.POSTOPERATIV [...] lesion, biopsy:Anal intraepithelial lesion, 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), 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.RPS/cmG ROSS DESCRIPTION:A: In formalin, [...] specimen is submitted in toto in one cassette.[email or web address] [email or web address] CLARKE [email or web address] N@(Signed out 08/27/2011) ID Date Data Source [id number] 10/05/2011 01:23:23 PM EDT [facility]ie grey System Name Value Range Interpretation Description Data Sup porting Code Source(s) Document(s ) Erythrocyte 25 Above high Sedimentation [facility] sedimentation {mmlhr} normal Rate, Health rate by 2H Erythrocyte System Christel method ID Date Data Source [id number] 10/05/2011 01:23:23 PM EDT [facility] Name Value Range Interpretation Description Data Sup porting Code Source(s) Document(s ) Leukocytes 6.3 Normal (applies WBC Count [facility] [#/volume] in {10\\S\\3_ to non-numeric Health Unspecified uL} results) System specimen by Automated count Hemoglobin 13.8 Below low normal Hemoglobin, [facility] [Mass/volume] in {gm/dL} Whole Blood Health Blood System Erythrocytes 4.94 Normal (applies RBC Count [facility] [#/volume] in {10\\S\\6_ to non-numeric Health Blood by uL} results) System Automated count Hematocrit 41.9 % Below low normal Hematocrit, [...] in Blood results) System by Automated count Eosinophils 0.0 Normal (applies Eosinophil [facility] [#/volume] in {10\\S\\3} to non-numeric Count Blood Health Blood results) System Monocytes 0.9 Above high normal Monocyte [facility] [#/volume] in {10\\S\\3_ Count Health Blood by Manual uL} System count Basophils 0.00 Normal (applies Basophil [facility] [#/volume] in {10\\S\\3_ to non-numeric Count Health Blood by uL} results) System Automated count Neutrophils 3.5 Normal (applies Absolute [facility] [#/volume] in {10\\S\\3_ to non-numeric Neutrophil Health Body fluid uL} results) Count System Lymphocyte 1.8 Normal (applies Lymphocyte [facility] percent {10\\S\\3_ to non-numeric Absolute Health differential uL} results) System count (procedure) Monocytes/100 14.6 % Above high normal Monocyte % [facility] leukocytes in Health Blood System Neutrophils/100 56.3 % Normal (applies Neutrophil % Calderon patience leukocytes in to non-numeric Health Blood by results) System Automated count Eosinophils/100 0.2 % Below low normal Eosinophil % [facility] leukocytes in Health Unspecified System specimen Basophils/100 0.5 % Normal (applies Basophil % [facility] leukocytes in to non-numeric Health Unspecified results) System specimen by Manual count Lymphocytes 28.4 % Normal (applies Lymphocyte % [facility] [#/volume] in to non-numeric Health Blood by results) System Automated count ID Date Data Source [id number] 10/05/2011 01:23:23 PM EDT [facility] [...] or urine test abnormalities Anion gap in 9.30 mmol/L Normal (applies Anion Gap [facility] Serum or Plasma to non-numeric Health results) System ID Date Data Source [id number] 10/05/2011 01:23:23 PM EDT [facility] Name Value Range Interpretation Description Data Sup porting Code Source(s) Document(s ) Creatine 9575 Above high normal Creatine [facility] kinase.MB {IU/L} Kinase, Serum Health System [Mass/volume ] in Serum or Plasma ID Date Data Source [id number] 10/29/2011 03:01:45 PM EDT [facility] [...] RNA Qualitative TMA assay (use Test Code 76944N) or a new EDTA whole blood specimen by the HIV-1 DNA PCR assay (Test Code 8401X) may detect viral or proviral nucleic acid sequences, respectively, and confirm infection. This information has been disclosed to you from confidential records which are protected by law. State law, 63.5(b) [address] [place] [address], prohibits you from making any further disclosure of this information without the specific written consent of the person to whom it pertains, or as otherwise permitted by law. HIV-2EIA DNR Normal (applies HIV-2 EIA [facility] to non-numeric Health results) System HIV-2-WB DNR Test Normal (applies HIV-2-WB [facility] Performed at: to non-numeric Health [facility] results) [facility], [place] [address] Kelli Murdock M.D. ID Date Data Source [id number] 11/10/2011 04:37:50 PM EDT [facility] System Name Value Range Interpretation Description Data Sup porting Code Source(s) Document(s ) Color Yellow Normal (applies Color [facility] to non-numeric Health results) System Appearance of CLEAR Normal (applies Urine [facility] Urine to non-numeric Appearance Health results) System Specific gravity 1.016 Normal (applies Urine Specific [facility] of Urine to non-numeric [facility] results) System pH.. 6.0 Normal (applies [...] Health [Units/volume] results) Concentration System in Urine Nitrate+Nitrite Negative Normal (applies Nitrite [facility] [Mass/volume] in to non-numeric Health Unspecified results) System specimen Leukocytes 9 {/HPF} Abnormal White Blood [facility] [#/volume] in (applies to Cells Health Unspecified non-numeric System specimen by results) Automated count RedBloodCells Less than 1 Abnormal Red Blood [facility] /HPF (applies to Cells Health non-numeric System results) Epithelial cells 1 {/HPF} Normal (applies Epithelial [facility] [Presence] in to non-numeric Cells Health Unspecified results) System specimen by Wet preparation Mucus RARE Normal (applies Mucus [facility] to non-numeric Health results) System UrineBlood Negative Normal (applies Urine Blood [facility] to non-numeric Health results) System ID Date Data Source [id number] 11/10/2011 04:37:50 PM EDT [facility] Name Value Range Interpretation Description Data Sup porting Code Source(s) Document(s ) Erythrocyte 8 Normal (applies Sedimentation [facility] sedimentation {mmlhr} to non-numeric Rate, Health rate by 2H results) Erythrocyte System Westergren method ID Date Data Source [id number] 11/10/2011 04:37:50 PM EDT [facility] Name Value Range Interpretation Description Data Sup porting Code Source(s) Document(s ) Polys 57 % Normal (applies Polys [facility] to non-numeric Health results) System Bands 1 % Below low normal Bands [facility] NORM yes. Normal (applies NORM [facility] to non-numeric Health results) System Platelets Adequate Normal (applies Platelet Count [facility] [#/volume] in to non-numeric Estimate Health Blood by results) System Estimate Lymphocytes 23.0 % Normal (applies Lymphocyte % [facility] [#/volume] in to non-numeric Health Blood by results) System Automated count Monocytes/100 13.0 % Above high normal Monocyte % [facility] leukocytes in Health Blood System Eosinophils/10 6.0 % Above high normal Eosinophil % [facility] 0 leukocytes Health in Unspecified System specimen ID Date Data Source [id number] 11/10/2011 04:37:50 PM EDT [facility] [...] by Automated count ID Date Data Source [id number] 11/10/2011 04:37:50 PM EDT [facility] System Name [...] Serum or results) Serum System Plasma Alkaline 45 {IU/L} Normal (applies Alkaline [facility] phosphatase to non-numeric Phosphatase, Health isoenzymes results) Serum System [Enzymatic activity/volume ] in Serum or Plasma by Heat stability Creatinine 0.79 mg/dl Normal (applies Creatinine, [facility] [Mass/volume] to non-numeric Serum Health in Serum or results) System Plasma Bilirubin.total 0.7 mg/dl Normal (applies Bilirubin, [facility] [...] or results) System Plasma Anion gap in 6.10 mmol/L [...] urine test abnormalities ID Date Data Source [id number] 11/10/2011 04:37:50 PM EDT [facility] System Name Value Range Interpretation Description Data Sup porting Code Source(s) Document(s ) Creatine 909 Above high normal Creatine [facility] kinase.MB {IU/L} Kinase, Serum Health System [Mass/volume ] in Serum or Plasma ID Date Data Source [id number] 12/01/2011 02:00:00 PM EDT [facility] System Name Value Range Interpretation Description Data Source(s ) Supporting Code Document(s ) FTA,Seru Cancelled See FTA, Serum [facility] m [id number] [facility] System ID Date Data Source [id number] 12/01/2011 02:00:00 PM EDT [facility] System Name Value Range Interpretation Description Data Sup porting Code Source(s) Document(s ) HepatitisA ReactiveReference Abnormal Hepatitis A [facility] Antibody. Range: Nonreactive (applies to Antibody. Health Test Performed at: non-numeric System [facility]) [facility], [place] [address]Zhane Murdock M.D. Hepatitis NonreactiveReferenc Normal (applies Hepatitis A [facility] A IgM e Range: to non-numeric IgM Antibody Health antibody Nonreactive Test results) System test Performed at: [facility] - (procedure [facility], ) [place] [address]Zhane Murdock M.D. ID Date Data Source [id number] 12/01/2011 02:00:00 PM EDT [facility] System Name Value Range Interpretation Description Data Sup porting Code Source(s) Document(s ) TotalB-CD1 6 {Percent} Normal (applies Total B-CD19 [facility] 9 to non-numeric Health results) System TotalT-CD3 77 {Percent} Normal (applies Total T-CD3 [facility] to non-numeric Health results) System T-HelperCD 27 {Percent} Below low normal [facility]-[place] CD4+ [place] patience 4+ Health System TSuppresso 49 {Percent} Above high normal T Suppressor [place] patience rCD8+ CD8+ Health System [place]/Sup 0.54 {Ratio} Below low normal [place]/Suppres [facility] pressor sor Health System LymphRel.C 667 Below low normal Lymph Rel. [facility] ount {Cells/mcL} Count Health System Message SEE NOTE Normal (applies Message [facility] Lymphocyte to non-numeric Health subset results) System results confirmed by repeat analysis. Test Performed at: [facility], [place] [address] Kelli Murdock M.D. CD19 41 Below low normal CD19 [facility] {Cells/mcL} Health System CD3 522 Below low normal CD3 [facility] {Cells/mcL} Health System HelperCD4+ 182 Below low normal [place] CD4+ [facility] {Cells/mcL} Health System SuppressCD 334 Normal (applies Suppress CD8+ [facility] 8+ {Cells/mcL} to non-numeric Health results) System ID Date Data Source [id number] 12/01/2011 02:00:00 PM EDT [facility] [...] for seroconversion is variable. Test Performed at: [facility], [place] [address] Kelli Murdock M.D. ID Date Data Source [id number] 12/01/2011 02:00:00 PM EDT [facility] System Name Value Range Interpretation Description Data Source(s ) Supporting Code Document(s ) Reagin Ab Reactive Abnormal (applies RPR/VDRL. [facility] [Presence] to non-numeric Health System in Serum by results) RPR ID Date Data Source [id number] 03/14/2014 03:21:00 PM EDT [facility] al[facility] [...] System STATEMENTOFA SPECIMEN Normal (applies STATEMENT OF Serinao re DEQUACY DESCRIPTION: to non-numeric ADEQUACY Health [...] results) System identified CYTOTECHNOLO NDB, Normal (applies EXTENSION CLERK [facility] GIST CT(ASCP) to non-numeric Health results) System PATHOLOGIST. Gimla Normal (applies PATHOLOGIST. Keiko Turk MD to non-numeric Health results) System ID Date Data Source [id number] 03/15/2014 12:19:47 PM EDT [facility] System Name Value Range Interpretation Description Data Sup porting Code Source(s) Document(s ) FTA,Ser ReactiveReference Abnormal FTA, Serum [facility] um Range: Nonreactive (applies to Health Test Performed at: non-numeric System [facility]) [facility], [place] [address] Kelli Murdock M.D. ID Date Data Source [id number] 04/15/2014 09:42:00 AM EDT [facility] Name Value Range Interpretation Description Data Sup porting Code Source(s) Document(s ) TotalB-CD1 7 {Percent} Normal (applies Total B-CD19 [facility] 9 to non-numeric Health System results) TotalT-CD3 60 {Percent} Normal (applies Total T-CD3 [facility] to non-numeric Health System results) T-HelperCD 21 {Percent} Below low normal [facility]-[place] CD4+ Calderon patience 4+ Health System TSuppresso 30 {Percent} Normal (applies T Suppressor [facility] rCD8+ to non-numeric CD8+ Health System results) [place]/Sup 0.71 {Ratio} Below low normal [place]/Suppres [facility] pressor sor Health System Message DNR Test Normal (applies Message [facility] Performed to non-numeric Health System at: [facility] - results) [facility], [place] [address] Kelli Murdock M.D. LymphRel.C 659 Below low normal Lymph Rel. [facility] ount {Cells/mcL} Count Health System CD19 46 Below low normal CD19 [facility] {Cells/mcL} Health System CD3 397 Below low normal CD3 [facility] {Cells/mcL} Health System HelperCD4+ 141 Below low normal [place] CD4+ [facility] {Cells/mcL} Health System SuppressCD 198 Normal (applies Suppress CD8+ [facility] 8+ {Cells/mcL} to non-numeric Health System results) ID Date Data Source [id number] 04/15/2014 09:42:00 AM EDT [facility] [...] System Automated count ID Date Data Source [id number] 04/15/2014 09:42:00 AM EDT [facility] [...] urine test abnormalities ID Date Data Source [id number] 04/15/2014 09:42:00 AM EDT [facility] System Name Value Range Interpretation Description Data Sup porting Code Source(s) Document(s ) Creatine 132 Normal (applies Creatine [facility] kinase.MB {IU/L} to non-numeric Kinase, Serum Health Syst em [Mass/volume results) ] in Serum or Plasma ID Date Data Source [id number] 08/10/2014 11:53:00 AM EST [facility] System Name Value Range Interpretation Description Data Sup porting Code Source(s) Document(s ) Color Yellow Normal (applies Color [facility] to non-numeric Health results) System Appearance of HAZY Normal (applies Urine [facility] Urine to non-numeric Appearance Health results) System Specific gravity 1.018 Normal (applies Urine Specific [facility] of Urine to non-numeric [facility] results) System pH.. 5.0 Normal (applies [...] [facility] [Units/volume] in to non-numeric Concentration Hea lt System Urine results) Leukocytes 2 {/HPF} Normal [...] Health System results) ID Date Data Source [id number] 08/10/2014 11:53:00 AM EST [facility] Name Value Range Interpretation Description Data Sup porting Code Source(s) Document(s ) Erythrocyte 7 Normal (applies Sedimentation [facility] sedimentation {mmlhr} to non-numeric Rate, Health rate by 2H results) Erythrocyte System Christel method ID Date Data Source [id number] 08/10/2014 11:53:00 AM EST [facility] [...] % Health System ID Date Data Source [id number] 08/10/2014 11:53:00 AM EST [facility] [...] urine test abnormalities ID Date Data Source [id number] 08/10/2014 11:53:00 AM EST [facility] Name Value Range Interpretation Description Data Sup porting Code Source(s) Document(s ) Creatine 1060 Above high normal Creatine [facility] kinase.MB {IU/L} Kinase, Serum Health System [Mass/volume ] in Serum or Plasma ID Date Data Source [id number] 11/07/2014 09:52:09 AM EDT [facility] Name [...] System Automated count ID Date Data Source [id number] 11/07/2014 09:52:09 AM EDT [facility] Name [...] urine test abnormalities ID Date Data Source [id number] 11/07/2014 09:52:09 AM EDSophia grey System Name Value Range Interpretation Description Data Sup porting Code Source(s) Document(s ) Creatine 1714 Above high normal Creatine [facility] kinase.MB {IU/L} Kinase, Serum Health System [Mass/volume ] in Serum or Plasma ID Date Data Source [id number] 11/07/2014 11:28:00 AM EDSophia Garcia alth System Name Value [...] IU/mL. For additional information, please refer to http://education.fotopedia/fa q/QFT (This link is being provided for informational/educational pu rposes only.) Test Performed at: [facility], [place] [address] Andres Leon M.D. ID Date Data Source [id number] 11/07/2014 12:57:00 PM EDT [facility] [...] GENE MUTATIONS: N/APR GENE MUTATIONS: N/A __[employer] November 2013 Interpretation AlgorithmThe method used in [...] its performance characteristics have been determined by [facility]. Performancechar acteristics refer to the analytical performance of thetest. This test was performed at: [facility], [employer] [address] [place] [address] Test Performed at: [facility] [employer] [address] [place] [address] Dr. Nuno Jimenez M.D.Result Reporting|Telep [place]|DR ARTHUR/NATHAN| 11/08/2014 at 1:49 PMCalled to:DR ARTHUR/ [place] Name:JACKLYN Mcclain by:LEFT MESSAGE 11/08/2014 / 1:48 PMResult Reporting|Telep [place]|Dr. Arthur| 11/12/2014 at 4:27 PMCalled to:Dr. Mark[place] Name:RPReadback by:Dr. Arthur 11/12/2014 / 4:26 PMResult Reporting|Telep [place]|Dr. Arthur| 11/12/2014 at 4:28 PMCalled to:Dr. [place] Name:RPReadback by: 11/12/2014 / 4:28 PMResult Reporting|Telep [place]|Dr. Kurtz| 11/18/2014 at 1:27 PMCalled to:Dr. Kurtz on [employer] Name:Rp Readback by: 11/18/2014 / 1:25 PM ID Date Data Source [id number] 11/07/2014 12:57:00 PM EDT [facility] Name Value Range Interpretation Description Data Sup porting Code Source(s) Document(s ) FTA,Ser ReactiveReference Abnormal FTA, Serum [facility] um Range: Nonreactive (applies to Health Test Performed at: non-numeric System [facility]) [facility], [place] [address] Andres Leon M.D. Result Reporting|Telephone |DR EDUARDO| 11/08/2014 at 1:49 PMCalled to:DR BOBO Felipe Name:JACKLYN Mcclain by:LEFT MESSAGE 11/08/2014 / 1:48 PMResult Reporting|Telephone |Dr. Arthur| 11/12/2014 at 4:27 PMCalled to:Dr. [place] Name:RPReadback by:Dr. Arthur 11/12/2014 / 4:26 PMResult Reporting|Telephone |Dr. Arthur| 11/12/2014 at 4:28 PMCalled to:Dr. [place] Name:RPReadback by: 11/12/2014 / 4:28 PMResult Reporting|Telephone |Dr. Kurtz| 11/18/2014 at 1:27 PMCalled to:Dr. Kurtz on [employer] Name:Rp Readback by: 11/18/2014 / 1:25 PM ID Date Data Source [id number] 11/07/2014 12:57:00 PM EDT [facility] Name Value Range Interpretation Description Data Sup porting Code Source(s) Document(s ) TotalB-CD1 2 {Percent} Below low normal Total B-CD19 [facility] 9 [facility] System TotalT-CD3 69 Normal (applies Total T-CD3 [facility] to non-numeric Health results) System T-HelperCD 37 Normal (applies T-[place] CD4+ [facility] 4+ to non-numeric Health results) System TSuppresso 27 Normal (applies T Suppressor [facility] rCD8+ to non-numeric CD8+ Health results) System [place]/Sup 1.35 Normal (applies [place]/Suppres [facility] pressor to non-numeric sor Health results) System Message SEE NOTE Normal (applies Message [facility] Lymphocyte to non-numeric Health subset results) System results confirmed by repeat analysis. Test Performed at: [facility], [place] [address] Andres Leon M.D. LymphRel.C 755 Below low normal Lymph Rel. [facility] ount {Cells/mcL} Count Health System CD19 < 20 Below low normal CD19 [facility] CD3 500 Below low normal CD3 [facility] {Cells/mcL} Health System HelperCD4+ 260 Below low normal [place] CD4+ [facility] {Cells/mcL} Health System SuppressCD 193 Normal (applies Suppress CD8+ [facility] 8+ to non-numeric Health results) System ID Date Data Source [id number] 11/07/2014 12:57:00 PM EDT [facility] Name Value Range Interpretation Description Data Source(s ) Supporting Code Document(s ) Reagin Ab 1:4 Normal (applies to Titer-RPR [facility] [Titer] in non-numeric Health System Serum by results) RPR Reagin Ab Reactive Abnormal (applies RPR. [facility] [Presence] to non-numeric Health System in Serum by results) RPR ID Date Data Source [id number] 12/09/2014 12:23:00 PM EDT [facility] System Name Value Range Interpretation Description Data Sup porting Code Source(s) Document(s ) C.Trac Not Normal (applies C. [facility] homati DetectedReference to non-numeric [facility] sAmp Range: Not Detected results) Amp System N.Gono Not Normal (applies N. Gonorrhea [facility] rrheab DetectedReference to non-numeric by [facility] Health yLCR Range: Not Detected results) System This test was performed using the APTIMA COMBO2(R) Assay (GEN-PROBE(R)). Test Performed at: [facility], [place] [address] Andres Leon M.D. ID Date Data Source [id number] 12/09/2014 12:23:00 PM EDT [facility] Name Value Range Interpretation Description Data Sup porting Code Source(s) Document(s ) CultureBacteriaT Micro Result Normal (applies Culture [facility] hroat Final Culture to non-numeric Bacteria Health Reading results) Throat System Note::NO BETA HEMOLYTIC STREPTOCOCCI ISOLATEDNO GC ISOLATED ID Date Data Source [id number] 12/25/2014 06:19:00 PM EDT [facility] [...] Heart = 3.0-4.5 ID Date Data Source [id number] 12/25/2014 06:19:00 PM EDT [facility] [...] % Health System ID Date Data Source [id number] 12/25/2014 06:19:00 PM EDT [facility] [...] urine test abnormalities ID Date Data Source [id number] 12/25/2014 06:19:00 PM EDT [facility] System Name Value Range Interpretation Description Data Sup porting Code Source(s) Document(s ) TroponinIQuantitative 0.20 Normal (applies Troponin I [facility] ng/ml to non-numeric Quantitative Health results) System ID Date Data Source [id number] 12/25/2014 06:19:00 PM EDT [facility] System Name Value Range Interpretation Description Data Sup porting Code Source(s) Document(s ) Creatine 1145 Above high normal Creatine [facility] kinase.MB {IU/L} Kinase, Serum Health System [Mass/volume ] in Serum or Plasma ID Date Data Source [id number] 12/25/2014 06:19:00 PM EDT [facility] System Name Value Range Interpretation Description Data Sup porting Code Source(s) Document(s ) Bacteria NO GROWTH Culture [facility] identified in Bacteria Blood Health Syst em Blood by Aerobe culture ID Date Data Source [id number] 12/25/2014 06:19:00 PM EDT [facility] System Name Value Range Interpretation Description Data Sup porting Code Source(s) Document(s ) Bacteria NO GROWTH Culture [facility] identified in Bacteria Blood Health Syst em Blood by Aerobe culture ID Date Data Source [id number] 12/25/2014 07:08:00 PM EDT [facility] System Name Value Range Interpretation Description Data Source(s ) Supporting Code Document(s ) LacticAc 2.0 Above high normal Lactic Acid [facility] idWholeB mmol/L Whole Blood Health System lood*NEW *NEW LALI LALI ONLY* ONLY* ID Date Data Source [id number] 12/26/2014 12:08:00 AM EDT [facility] System Name Value Range Interpretation Description Data Sup porting Code Source(s) Document(s ) Color Allyssa Normal (applies Color [facility] to non-numeric Health results) System Appearance of HAZY Normal (applies Urine [facility] Urine to non-numeric Appearance Health results) System Specific gravity 1.031 Normal (applies Urine Specific [facility] of Urine to non-numeric [facility] results) System pH.. 6.0 Normal (applies [...] System non-numeric results) ID Date Data Source [id number] 12/26/2014 06:00:00 AM EDT [facility] Name Value Range Interpretation Description Data Sup porting Code Source(s) Document(s ) Polys 92 % Above high normal Polys [facility] Lymphocyte%. 4 % Below low normal Lymphocyte %. [facility] Platelets Adequate Normal (applies Platelet Count [facility] [#/volume] in to non-numeric Estimate Health Syst em Blood by results) Estimate Monocyte%. 0 % Below low normal Monocyte %. [facility] NORM Yes Normal (applies NORM [facility] to non-numeric Health System results) Myelocytes 4 % Above high normal Myelocyte [facility] [#/volume] in Count Health System Blood ID Date Data Source [id number] 12/26/2014 06:00:00 AM EDT [facility] He que System Name [...] [Mass/volume] in {gm/dL} Health Blood System Hematocrit 37.7 % Below low [...] % Health System ID Date Data Source [id number] 12/26/2014 06:00:00 AM EDT [facility] [...] urine test abnormalities ID Date Data Source [id number] 12/26/2014 06:00:00 AM EDT [facility] al[facility] System Name Value Range Interpretation Description Data Sup porting Code Source(s) Document(s ) Creatine 5466 Above high normal Creatine [facility] kinase.MB {IU/L} Kinase, Serum Health System [Mass/volume ] in Serum or Plasma ID Date Data Source [id number] 12/26/2014 09:01:00 AM EDT [facility] System Name Value Range Interpretation Description Data Sup porting Code Source(s) Document(s ) TroponinIQuantitative 0.16 Normal (applies Troponin I [facility] ng/ml to non-numeric Quantitative Health results) System ID Date Data Source [id number] 12/26/2014 10:00:00 AM ED [facility] System Name Value Range Interpretation Description Data Sup porting Code Source(s) Document(s ) HepatitisCRati 0.07 {Ratio} Normal (applies Hepatitis C [facility] o to non-numeric Ratio Health results) System HepatitisBSurf DNR Test Normal (applies Hepatitis B [facility] aceAntigenNeut Performed at: to non-numeric [facility] results) Antigen Neut [facility], [place] [address] Andres Leon M.D. HepatitisBCore Non Normal (applies [...] Antibody System Reactive ID Date Data Source [id number] 12/27/2014 06:00:00 AM EDT [facility] System [...] submitted for serologic testing. Test Performed at: [facility], [place] [address] Andres Leon M.D. Result Reporting|Telephone |LUANA GAITAN| 12/27/2014 at 3:14 PMCalled to:Kvng GAITAN Name:JACKLYN FINCHReadback by:BECCA CRAFT 12/27/2014 / 3:12 PM ID Date Data Source [id number] 12/27/2014 06:00:00 AM EDT [facility] System Name Value [...] % Health System ID Date Data Source [id number] 12/27/2014 06:00:00 AM EDT [facility] System Name Value Range Interpretation Code Description Data Lexy rce(s) Supporting Document(s ) T4Free 0.84 ng/ml Normal (applies to T4 Free [facility] non-numeric Health System results) ID Date Data Source [id number] 12/27/2014 06:00:00 AM EDT [facility] System Name Value Range Interpretation Description Data Sup porting Code Source(s) Document(s ) Thyrotropin 2.390 Normal (applies Thyroid [facility] [Mass/volume] to non-numeric Stimulating Health Sy stem in Serum or results) Hormone, Serum Plasma ID Date Data Source [id number] 12/27/2014 06:00:00 AM EDT [facility] System [...] urine test abnormalities ID Date Data Source [id number] 12/27/2014 06:00:00 AM EDT [facility] System Name Value Range Interpretation Description Data Sup porting Code Source(s) Document(s ) Creatine 3486 Above high normal Creatine [facility] kinase.MB {IU/L} Kinase, Serum Health System [Mass/volume ] in Serum or Plasma ID Date Data Source [id number] 12/27/2014 06:00:00 AM EDT [facility] System Name Value Range Interpretation Description Data Source(s ) Supporting Code Document(s ) Reagin Ab 1:2 Normal (applies to Titer-RPR [facility] [Titer] in non-numeric Health System Serum by results) RPR Reagin Ab Reactive Abnormal (applies RPR. [facility] [Presence] to non-numeric Health System in Serum by results) RPR ID Date Data Source [id number] 12/28/2014 06:00:00 AM EDT [facility] System Name Value Range Interpretation Description Data Sup porting Code Source(s) Document(s ) Erythrocyte 42 Above high Sedimentation [facility] sedimentation {mmlhr} normal Rate, Health rate by 2H Erythrocyte System Westergren method ID Date Data Source [id number] 12/28/2014 06:00:00 AM EDT [facility] System Name [...] % Health System ID Date Data Source [id number] 12/28/2014 06:00:00 AM EDT [facility] System Name [...] urine test abnormalities ID Date Data Source [id number] 12/28/2014 06:00:00 AM EDT [facility] System Name Value Range Interpretation Description Data Sup porting Code Source(s) Document(s ) Creatine 3271 Above high normal Creatine [facility] kinase.MB {IU/L} Kinase, Serum Health System [Mass/volume ] in Serum or Plasma ID Date Data Source [id number] 12/29/2014 06:00:00 AM EDT [facility]ie Garica alth System Name Value Range Interpretation Description Data Sup porting Code Source(s) Document(s ) Type A Normal (applies Type [facility] to non-numeric Health results) System D Ab [Titer] in Positive Normal (applies Rh [facility] Serum or Plasma to non-numeric Health results) System AntibodyScreen Negative Normal (applies Antibody [facility] to non-numeric Screen Health results) System new pt--no history ID Date Data Source [id number] 12/29/2014 06:00:00 AM EDT [facility] System Name Value Range Interpretation Description Data Sup porting Code Source(s) Document(s ) aPTT in Blood 30.0 Normal (applies Activated [facility] by Coagulation {Seconds to non-numeric Partial Health assay } results) Thromboplastin System Time ID Date Data Source [id number] 12/29/2014 06:00:00 AM EDT [facility] [...] Heart = 3.0-4.5 ID Date Data Source [id number] 12/29/2014 06:00:00 AM EDT [facility] System Name [...] System Plasma results) ID Date Data Source [id number] 12/29/2014 06:00:00 AM EDT [facility]ie Garcia alth [...] % Health System ID Date Data Source [id number] 12/29/2014 06:00:00 AM EDT [facility] [...] Serum 8.30 Normal (applies [place] Calderon patience or [...] urine test abnormalities ID Date Data Source [id number] 12/29/2014 06:00:00 AM EDT [facility] Name Value Range Interpretation Description Data Sup porting Code Source(s) Document(s ) Creatine 2811 Above high normal Creatine [facility] kinase.MB {IU/L} Kinase, Serum Health [facility] [Mass/volume ] in Serum or Plasma ID Date Data Source [id number] 12/30/2014 06:00:00 AM EDT [facility] Name Value [...] Heart = 3.0-4.5 ID Date Data Source [id number] 12/30/2014 06:00:00 AM EDT [facility] Name Value Range Interpretation Description Data Sup porting Code Source(s) Document(s ) Leukocytes 14.4 Above high normal WBC Count [facility] [#/volume] in {10^3_uL Health System Unspecified } specimen by Automated count manual diff done 12/26/14 Erythrocytes 4.71 {10^6_uL} Normal (applies RBC Count [facility] [#/volume] in Blood to non-numeric [facility] by Automated count results) Hemoglobin [...] [facility] [#/volume] in Blood to non-numeric [facility] results) Basophils/100 0.6 % Normal (applies Basophil % [facility] leukocytes in to non-numeric Health Syst em Unspecified results) specimen by Manual count Basophils 0.08 {10^3_uL} Normal (applies Basophil # [facility] [#/volume] in Blood to non-numeric [facility] by Automated count results) ImmatureGranulocyte 0.87 {10^3_uL} Above high Immature [facility] s# normal Granulocytes # Health System ImmatureGranulocyte 6.0 % Above high Immature [facility] s% normal Granulocytes % Health System ID Date Data Source [id number] 12/30/2014 06:00:00 AM EDT [facility] [...] urine test abnormalities ID Date Data Source [id number] 12/30/2014 06:00:00 AM EDT Jeanie Garcia alth System Name Value Range Interpretation Description Data Sup porting Code Source(s) Document(s ) Creatine 3055 Above high normal Creatine [facility] kinase.MB {IU/L} Kinase, Serum Health System [Mass/volume ] in Serum or Plasma ID Date Data Source [id number] 12/30/2014 08:23:00 AM EDT [facility] Name Value Range Interpretation Description Data Sup porting Code Source(s) Document(s ) TissueExam Results for case # Normal (applies Tissue Exam [facility] [id number] to non-[facility] SURGICAL PATHOLOGY results) System REPORTCLINICAL INFORMATION: Rule out dermatomyositis. PREOPERATIVE DIAGNOSIS: Same.POSTOPERATIVE DIAGNOSIS: FINAL DIAGNOSIS: Final neuropathology diagnosis from Dr. Bernice [facility] at [facility] ([id number]):Skeleta l muscle, right quadriceps muscle, biopsy:Myopathy with [...] suggested.Comprehe nsive muscle biopsy analysis performed at [facility], [address] [place] [address], [id number]. Please refer to the original reports on file in the Laboratory, for complete descriptions and comments.RPS/Fransisco CLARKE MDElectronically Signed By: GROSS DESCRIPTION: Received fresh, labeled "right quadriceps muscle biopsy", the specimen consists of a portion of red brown, striated fragment of muscle. The specimen is entirely submitted for special studies. No sections are submitted. PT/stPage 2 of 2 ID Date Data Source [id number] 01/03/2015 12:25:00 PM EDT [facility] Name Value Range Interpretation Description Data Sup porting Code Source(s) Document(s ) Erythrocyte 28 Above high Sedimentation [facility] sedimentation {mmlhr} normal Rate, Health rate by 2H Erythrocyte System Westergren method ID Date Data Source [id number] 01/03/2015 12:25:00 PM EDT [facility] [...] Health Blood System ID Date Data Source [id number] 01/03/2015 12:25:00 PM EDT [facility] [...] [facility] [#/volume] in Blood to non-numeric [facility] by Automated count results) ImmatureGranulocyte 0.50 {10^3_uL} Above high Immature [facility] s# normal Granulocytes # Health System ImmatureGranulocyte 5.1 % Above high Immature [facility] s% normal Granulocytes % Health System ID Date Data Source [id number] 01/03/2015 12:25:00 PM EDT [facility] [...] urine test abnormalities ID Date Data Source [id number] 01/03/2015 12:25:00 PM EDT [facility] System Name Value Range Interpretation Description Data Sup porting Code Source(s) Document(s ) Creatine 3483 Above high normal Creatine [facility] kinase.MB {IU/L} Kinase, Serum Health System [Mass/volume ] in Serum or Plasma ID Date Data Source [id number] 02/04/2015 10:06:00 AM EDT [facility] System Name Value Range Interpretation Description Data Sup porting Code Source(s) Document(s ) Aldolase 43.3 U/L Above high normal Aldolase, [facility] [Enzymatic Serum Health System activity/vol ume] in Serum or Plasma Test Performed at: [facility] - [employer] , [place] [address] Andres Leon M.D. ID Date Data Source [id number] 02/04/2015 10:06:00 AM EDT [facility] Name Value Range Interpretation Description Data Sup porting Code Source(s) Document(s ) Erythrocyte 31 Above high Sedimentation [facility] sedimentation {mmlhr} normal Rate, Health rate by 2H Erythrocyte System Westergren method ID Date Data Source [id number] 02/04/2015 10:06:00 AM EDT [facility] [...] % Health System ID Date Data Source [id number] 02/04/2015 10:06:00 AM EDT [facility] [...] urine test abnormalities ID Date Data Source [id number] 02/04/2015 10:06:00 AM EDT Jeanie Garcia alth System Name Value Range Interpretation Description Data Sup porting Code Source(s) Document(s ) Creatine 1654 Above high normal Creatine [facility] kinase.MB {IU/L} Kinase, Serum Health System [Mass/volume ] in Serum or Plasma ID Date Data Source [id number] 02/04/2015 11:50:00 AM EDSophia Garcia alth System Name Value Range Interpretation Description Data Sup porting Code Source(s) Document(s ) Thyrotropin 0.670 Normal (applies Thyroid [facility] [Mass/volume] {mIU/mL} to non-numeric Stimulating Health Sy stem in Serum or results) Hormone, Serum Plasma ID Date Data Source [id number] 02/04/2015 11:57:00 AM EDSophia Garcia alth System Name Value [...] Methadone Negative Normal (applies to Methadone Level, [facility] [Mass/volume] in non-numeric Urine System Urine results) Cut-off = 300 ng/mL Reference Range: NEG ATIVE 300 ng/ml [id number],Urine Negative Normal (applies to Opiate 300, [facility] non-numeric results) Urine System Cut-off = 300 ng/mL Reference Range: NEG ATIVE 300 ng/ml Phencyclidine Negative Normal (applies Phencyclidine, Urine [facility] [Mass/volume] in to non-numeric Health S ystem Urine results) Cut-off = 25 ng/mL Reference Range: NEGA TIVE 25 ng/ml THC Negative Normal (applies to non-numeric resul ts) THC [facility] Health System Cutt-off = 50These results are for medic al treatment only. The positive findings are unconfirmed. Request confirmatory/quanti tative test if needed. Reference Range: NEGATIVE 50 ng/mL ID Date Data Source [id number] 02/13/2015 01:16:00 PM EDT [facility] Name Value Range Interpretation Description Data Sup porting Code Source(s) Document(s ) TotalB-CD1 1 {Percent} Below low normal Total B-CD19 [facility] 9 [facility] TotalT-CD3 62 Normal (applies Total T-CD3 [facility] to non-numeric Health System results) T-HelperCD 29 {Percent} Below low normal T-[place] CD4+ Calderon patience 4+ Health System TSuppresso 26 Normal (applies T Suppressor [facility] rCD8+ to non-numeric CD8+ Health System results) [place]/Sup 1.09 Normal (applies [place]/Suppres [facility] pressor to non-numeric sor Health System results) Message DNR Test Normal (applies Message [facility] Performed to non-numeric Health System at: TBR - results) [employer], [place] [address] Andres Leon M.D. LymphRel.C 747 Below low normal Lymph Rel. [facility] ount {Cells/mcL} Count Health System CD19 < 20 Below low normal CD19 [facility] CD3 479 Below low normal CD3 [facility] {Cells/mcL} Health System HelperCD4+ 227 Below low normal [place] CD4+ [facility] {Cells/mcL} Health System SuppressCD 209 Normal (applies Suppress CD8+ [facility] 8+ to non-numeric Health System results) ID Date Data Source [id number] 02/13/2015 01:16:00 PM EDT Jeanie Garcia alth System Name Value Range Interpretation Description Data Sup porting Code Source(s) Document(s ) Aldolase 41.2 U/L Above high normal Aldolase, [facility] [Enzymatic Serum Health System activity/vol ume] in Serum or Plasma Test Performed at: [place] [address] Andres Leon M.D. ID Date Data Source [id number] 02/13/2015 01:16:00 PM EDT Jeanie Garcia alth [...] Serum or Plasma results) <200 mg/dL = Mobxhppze233 - 239 md/dL = Borderline>240 mg/dL = [...] CHDRisk 4.85 Normal (applies to CHD Risk [facility] non-numeric results) System ID Date Data Source [id number] 02/13/2015 01:16:00 PM EDT Jeanie Garcia alth System Name Value Range Interpretation Description Data Sup porting Code Source(s) Document(s ) Creatine 2121 Above high normal Creatine [facility] kinase.MB {IU/L} Kinase, Serum Health System [Mass/volume ] in Serum or Plasma ID Date Data Source [id number] 03/07/2015 02:58:00 PM EDT Jeanie grey System Name Value Range Interpretation Description Data Sup porting Code Source(s) Document(s ) Aldolase 3.9 U/L Normal (applies to Aldolase, [facility] [Enzymatic non-numeric Serum Health System activity/vol results) ume] in Serum or Plasma Test Performed at: [facility], [place] [address] Andres Leon M.D. ID Date Data Source [id number] 03/07/2015 02:58:00 PM EDT Jeanie gery System Name Value Range Interpretation Description Data [...] or = 30 ng/mL. Test Performed at: [facility], [place] [address] Andres Leon M.D. ID Date Data Source [id number] 09/22/2017 10:56:00 AM EDT Jeanie grey System Name Value Range Interpretation Description Data Sup porting Code Source(s) Document(s ) HepatitisCRati 0.00 {Ratio} Normal (applies Hepatitis C [facility] o to non-numeric Ratio Health results) System HepatitisCVira Non Normal (applies Hepatitis C [facility] lAntibody ReactiveReferen to non-numeric Viral Health ce Range: Non results) Antibody System Reactive ID Date Data Source [id number] 09/22/2017 10:56:00 AM EDT [facility] [...] results) ImmatureGranulocyte 0.2 % Normal (applies Immature Rya [facility]fi[facility] s% to non-numeric Granulocytes % Health Sys tem results) ID Date Data Source [id number] 09/22/2017 10:56:00 AM EDT [facility] He que System Name [...] urine test abnormalities ID Date Data Source [id number] 09/22/2017 10:56:00 AM EDT Jeanie Garcia alth System Name Value Range Interpretation Description Data Sup porting Code Source(s) Document(s ) Creatine 206 Normal (applies Creatine [facility] kinase.MB {IU/L} to non-numeric Kinase, Serum Health Syst em [Mass/volume results) ] in Serum or Plasma ID Date Data Source [id number] 02/14/2018 04:46:00 PM EDT Monte[facility] Garcia alth System Name Value Range Interpretation Description Data Sup porting Code Source(s) Document(s ) T-HelperCD 40 Normal (applies T-[place] CD4+ [facility] 4+ to non-numeric Health System results) Message DNRTest Normal (applies Message [facility] Performed to non-numeric Health System at:TBR - results) [employer], [place], [place] [address]NsddkmkBimal Leon M.D. LymphRel.C 1011 Normal (applies Lymph Rel. [facility] ount to non-numeric Count Health System results) HelperCD4+ 404 Below low normal [place] CD4+ [facility] {Cells/mcL} Health System ID Date Data Source [id number] 02/14/2018 04:46:00 PM EDT [facility] [...] Health results) System ID Date Data Source [id number] 02/14/2018 04:46:00 PM EDT [facility] que System Name [...] urine test abnormalities ID Date Data Source [id number] 03/07/2018 04:31:00 PM EDT Jeanie grey System Name Value Range Interpretation Description Data Sup porting Code Source(s) Document(s ) C.Trac Not Normal (applies C. [facility] homati DetectedReference to non-numeric Trachomatis Healt h sAmp Range: Not Detected results) Amp System N.Gono Not Normal (applies N. Gonorrhea [facility] rrheab DetectedReference to non-numeric by [facility] Health yLCR Range: Not results) System DetectedThis test was performed using the APTIMA COMBO2(R) Assay(GEN-PROBE(R)) .Test Performed at:[facility], [place], [place] [address]Andres Leon M.D. ID Date Data Source [id number] 03/07/2018 04:31:00 PM EDT Jeanie Garcia alth System Name [...] characteristics of this assay havebeen determined by [employer] [facility].Perfo rmance characteristics refer to the analyticalperfo rmance of the test.This test was performed at:[employer] [address] [id number] Performed at:[facility] [employer] [facility], [address] [place] [address]Lawskaqdeepthi Carter M.D., Ph.D. ID Date Data Source [id number] 03/07/2018 04:31:00 PM EDT Jeanie [facility] alth System Name [...] characteristics of thisassay [place] The modificationsha ve not been cleared or approved by the FDA. Thisassay has been validated pursuant to the CLIAregulations and is used for clinical purposes.This test was performed at:[employer] [address] [id number] Performed at:[facility], [address] [place] [address]Unbllandeepthi Carter M.D., Ph.D. ID Date Data Source [id number] 03/07/2018 04:31:00 PM EDT Monte[facility] alth System Name Value Range Interpretation Description Data Source(s ) Supporting Code Document(s ) Reagin Ab Non-react Normal (applies to RPR. [facility] [Presence] felipa non-numeric Health System in Serum by results) RPR ID Date Data Source [id number] 04/18/2018 04:29:00 PM EDT Jeanie Garcia alth System Name Value Range Interpretation Description Data Sup porting Code Source(s) Document(s ) FTA,Ser ReactiveReference Abnormal FTA, Serum [facility] um Range: (applies to Health NonreactiveTest non-numeric System Performed at:TBR - results) [employer], [place], [place] [address]TcotzzsiKalani Leon M.D. Result Reporting|Telephone |DR. ARTHUR|04/19/2018 at 3:45 PMCalled to:Tech Name:Emilie by:04/19/2018 / 3:44 PM ID Date Data Source [id number] 04/18/2018 04:29:00 PM EDT Jeanie grey System Name Value Range Interpretation Description Data Sup porting Code Source(s) Document(s ) C.Trac Not Normal (applies C. [facility] homati DetectedReference to non-numeric Trachomatis Healt h sAmp Range: Not Detected results) Amp System N.Gono Not Normal (applies N. Gonorrhea [facility] rrheab DetectedReference to non-numeric by [facility] Health yLCR Range: Not results) System DetectedThis test was performed using the APTIMA COMBO2(R) Assay(GEN-PROBE(R)) .Test Performed at:[facility] [place] Maxine Leon M.D. ID Date Data Source [id number] 04/18/2018 04:29:00 PM EDT [facility] Name Value Range Interpretation Description [...] characteristics of this assay havebeen determined by [employer] [facility].Perfo rmance characteristics refer to the analyticalperfo rmance of the test.This test was performed at:[employer] [address] [id number] Performed at:[facility] [employer] [address] [address]Dtxkfbgdeepthi Carter M.D., Ph.D. ID Date Data Source [id number] 04/18/2018 04:29:00 PM EDT [facility] Name Value Range Interpretation Description [...] characteristics of thisassay have been determined [place] The modificationsha ve not been cleared or approved by the FDA. Thisassay has been validated pursuant to the CLIAregulations and is used for clinical purposes.This test was performed at:[employer] [place] [address] [id number] Performed at:[employer] [facility], [address] [place] [address]Pjbypnadeepthi Carter M.D., Ph.D. ID Date Data Source [id number] 04/18/2018 04:29:00 PM EDT [facility] Name Value Range Interpretation Description Data Source(s ) Supporting Code Document(s ) Reagin Ab 1:2 Normal (applies to Titer-RPR [facility] [Titer] in non-numeric Health System Serum by results) RPR Reagin Ab Reactive Abnormal (applies RPR. [facility] [Presence] to non-numeric Health System in Serum by results) RPR ID Date Data Source [id number] 06/27/2018 04:38:00 PM EST [facility] Name Value Range Interpretation Description Data Sup porting Code Source(s) Document(s ) T-HelperCD 33 Normal (applies T-[place] CD4+ [facility] 4+ to non-numeric Health System results) Message DNRTest Normal (applies Message [facility] Performed to non-numeric Health System at:TBR - results) [employer], [place], [place] [address]XjmcmdoBimal Leon M.D. LymphRel.C 1220 Normal (applies Lymph Rel. [facility] ount to non-numeric Count Health System results) HelperCD4+ 403 Below low normal [place] CD4+ [facility] {Cells/mcL} Health System ID Date Data Source [id number] 06/27/2018 04:38:00 PM EST [facility] Name Value Range Interpretation Description Data Sup porting Code Source(s) Document(s ) C.Trac Not Normal (applies C. [facility] homati DetectedReference to non-numeric Trach[facility] Healt h sAmp Range: Not Detected results) Amp System N.Gono Not Normal (applies N. Gonorrhea [facility] rrheab DetectedReference to non-numeric by [facility] Health yLCR Range: Not results) System DetectedThis test was performed using the APTIMA COMBO2(R) Assay(GEN-PROBE(R)) .Test Performed at:[facility] [employer], [place], [place] [address]Andres Leon M.D. ID Date Data Source [id number] 06/27/2018 04:38:00 PM EST [facility] [...] Specific [facility] of Urine to non-numeric [facility] results) Color Colorless Normal (applies Color [facility] to non-numeric Health System results) UrineBlood NEG Normal (applies Urine Blood [facility] to non-numeric Health System results) ID Date Data Source [id number] 06/27/2018 04:38:00 PM EST [facility] [...] Health results) System ID Date Data Source [id number] 06/27/2018 04:38:00 PM EST [facility] [...] urine test abnormalities ID Date Data Source [id number] 06/27/2018 04:38:00 PM EST [facility] Name Value Range Interpretation Description Data Source(s ) Supporting Code Document(s ) Reagin Ab Non-react Normal (applies to RPR. [facility] [Presence] felipa non-numeric Health System in Serum by results) RPR ID Date Data Source [id number] 07/18/2018 04:36:00 PM EST [facility] Name Value Range Interpretation Description Data Sup porting Code Source(s) Document(s ) C.Trac Not Normal (applies C. [facility] homati DetectedReference to non-numeric Trachomatis Healt h sAmp Range: Not Detected results) Amp System N.Gono Not Normal (applies N. Gonorrhea [facility] rrheab DetectedReference to non-numeric by [facility] Health yLCR Range: Not results) System DetectedThis test was performed using the APTIMA COMBO2(R) Assay(GEN-PROBE(R)) .Test Performed at:[facility], [place], [place] [address]Andres Leon M.D. ID Date Data Source [id number] 07/18/2018 04:36:00 PM EST [facility] Name Value Range Interpretation Description Data Sup porting Code Source(s) Document(s ) Color Yellow Normal (applies Color [facility] to non-numeric Health results) System Appearance of CLEAR Normal (applies Urine [facility] Urine to non-numeric Appearance Health results) System Specific gravity 1.005 Normal (applies Urine Specific [facility] of Urine to non-numeric [facility] results) System pH.. 6.0 Normal (applies [...] ase [facility] [Units/volume] in to non-numeric Concentration [facility] System Urine results) Leukocytes < 1 [...] Health System results) ID Date Data Source [id number] 07/18/2018 04:36:00 PM EST [facility] Name Value Range Interpretation Description Data Source(s ) Supporting Code Document(s ) Reagin Ab 1:2 Normal (applies to Titer-RPR [facility] [Titer] in non-numeric Health System Serum by results) RPR Reagin Ab Reactive Abnormal (applies RPR. [facility] [Presence] to non-numeric Health System in Serum by results) RPR ID Date Data Source [id number] 07/18/2018 04:36:00 PM EST [facility] Name Value Range Interpretation Description Data Sup porting Code Source(s) Document(s ) Deprecated NO GROWTH Aerobic [facility] Bacteria Culture, Urine [facility] System identified in Urine by Aerobe culture ID Date Data Source [id number] 07/19/2018 04:19:53 PM EST [facility] Name Value Range Interpretation Description Data Sup porting Code Source(s) Document(s ) FTA,Ser ReactiveReference Abnormal FTA, Serum [facility] um Range: (applies to Health NonreactiveTest non-numeric System Performed at:[facility] - results) [employer], [place], [place] [address]YccgmbklAndres Leon M.D. ID Date Data Source [id number] 03/31/2020 02:50:15 AM EDT [facility] Name Value Range Interpretation Description Data Sup porting Code Source(s) Document(s ) C.Trac Not Normal (applies C. [facility] homati DetectedReference to non-numeric Trach[facility]is Healt h sAmp Range: Not Detected results) Amp System N.Gono Not Normal (applies N. Gonorrhea [facility] rrheab DetectedReference to non-numeric by [facility] Health yLCR Range: Not results) System DetectedThis test was performed using the APTIMA COMBO2(R) Assay(GEN-PROBE(R)) .Please add the following message:For additional information, please refer [email or web address] Minekeys.co m/faq/IGN840(This link is being provided for informational/educa tionalpurposes only)Test Performed at:[facility] - [employer], [place], [place] [address]EwzoyntcAndres Leon M.D. ID Date Data Source [id number] 03/31/2020 02:50:15 AM EDT [facility] Name Value Range Interpretation Description Data Source(s ) Supporting Code Document(s ) Reagin Ab 1:4 Normal (applies to Titer-RPR [facility] [Titer] in non-numeric Health System Serum by results) RPR Reagin Ab Reactive Abnormal (applies RPR. [facility] [Presence] to non-numeric Health System in Serum by results) RPR ID Date Data Source [id number] 03/31/2020 02:50:15 AM EDT [facility] Name Value Range Interpretation Description Data Sup porting Code Source(s) Document(s ) Color Yellow Normal (applies Color [facility] to non-numeric Health results) System Appearance of CLEAR Normal (applies Urine [facility] Urine to non-numeric Appearance Health results) System Specific gravity 1.019 Normal (applies Urine Specific [facility] of Urine to non-numeric [facility] results) System pH.. 5.0 Normal (applies [...] Health System results) ID Date Data Source [id number] 03/31/2020 02:50:15 AM EDT [facility] Name Value Range Interpretation Description Data Sup porting Code Source(s) Document(s ) FTA,Ser ReactiveReference Abnormal FTA, Serum [facility] um Range: (applies to Health NonreactiveTest non-numeric System Performed at:[facility] - results) [employer], [place] [id number] Leon M.D. Result Reporting|Telephone || 11/29/2018 at 5:42 PMCalled to:Tech Name:Dayana by:FEDERICA BALLESTEROS 11/29/2018 / 5:42 PM ID Date Data Source [id number] 11/30/2012 10:35:00 AM EDT [facility] Name Value Range Interpretation Description Data Sup porting Code Source(s) Document(s ) Creatine 303 Above high normal Creatine [facility] kinase.MB {IU/L} Kinase, Serum Health System [Mass/volume ] in Serum or Plasma ID Date Data Source [id number] 03/01/2013 12:45:00 PM EDT [facility] [...] CMV IgG antibody detected. Test Performed at: [employer] [facility] [employer], [place] [address] Kelli Murdock M.D. ID Date Data Source [id number] 03/01/2013 12:45:00 PM EDT [facility] [...] immunocompromised patients. Interpretation: Negative Test Performed at: [facility] [place] [address] Kelli Murdock M.D. HerpesIIgM Negative Normal Herpes [...] and its performancecharacteristics have been determined by [employer] [place], [place].Performance characteristics refer to theanalytical performance of the test. This test was performed at: [employer] [address] This test was performed at: [employer] [address] [place] [id number] This test was performed at: [employer] [employer] [address] [place] [phone] Test Performed at: [facility] [employer] [facility], [address] [place] [address] Toro Skaggs MD,PhD ID Date Data Source [id number] 03/01/2013 12:45:00 PM EDT [facility] alth System Name Value Range Interpretation Description Data Sup porting Code Source(s) Document(s ) EBVNaAntibody 4.93 Above high normal EBV Na [facility] Antibody [facility] UNITS: Index Value Interpretatio n: Positive Test Performed at: [facility] [employer], [place] [address] Kelli Murdock M.D. EbvCaAntiIgG Greater than 5.00 Above high Ebv Ca Anti [facility] UNITS: Index Value normal IgG Health Syst em Interpretation: Positive Sarah Rae virus Less than 0.91 UNITS: Normal Sarah B arr [facility] nuclear IgM Ab Index Value (applies to Virus IgM Health Syst em [Presence] in Interpretation: non-numeric Antibody Serum by Negative results) Immunoassay Suggestive of a past Sarah-Rae Virus infection. In infants, a similar pattern may occur as a result of passive maternal transfer of antibody. Test Performed at: [facility] [employer], [place] [address] Kelli Murdock M.D. ID Date Data Source [id number] 03/01/2013 12:45:00 PM EDT [facility] System Name Value Range Interpretation Description Data Sup porting Code Source(s) Document(s ) ANATiter 1:1280 Above high normal EMMA Titer [facility] System ANAEIA Positive Test Abnormal (applies EMMA EIA [facility] Performed at: to non-numeric Health Syst em [facility] - [facility] results) [place] [address] Kelli Murdock M.D. Pattern Speckled Abnormal ([facility]lies [facility] Reference to non-numeric Health System Range: results) <1:40 Negative 1:40-1:80 Low Antibody Level >1:80 Elevated Antibody Level Test Performed at: [facility], [place], [place] [address]Zhane Murdock M.D. ID Date Data Source [id number] 03/01/2013 12:45:00 PM EDT [facility] System Name Value Range Interpretation Description Data Sup porting Code Source(s) Document(s ) Measurement of Negative Normal (applies Toxoplasma [facility] Toxoplasma species Test to non-numeric IgM, Serum Healt h immunoglobulin M Performed results) System antibody at: TB - (procedure) [employer] , [place] [address] Kelli Murdock M.D. ToxoplasmaAntibody Less than Normal (applies Toxoplasma [facility] IgG 0.91 UNITS: to non-numeric Antibody IgG Health Index Value results) System Interpretat ion: Negative Index Value Results Interpretat ion __ <0.91 Negative - No Toxoplasma IgG antibody detected. 0.91-1.09 Equivocal - Presence or absence of Toxoplasma IgG antibody cannot be discerned. >=1.10 Positive - Toxoplasma IgG antibody detected. Test Performed at: [facility] - [employer] , [place] [address] Kelli Murdock M.D. ID Date Data Source [id number] 03/01/2013 12:45:00 PM EDT [facility] System Name Value Range Interpretation Description Data Sup porting Code Source(s) Document(s ) TotalB-CD1 11 {Percent} Normal (applies Total B-CD19 [facility] 9 to non-numeric Health System results) TotalT-CD3 66 {Percent} Normal (applies Total T-CD3 [facility] to non-numeric Health System results) T-HelperCD 35 {Percent} Normal (applies T-[place] CD4+ [facility] 4+ to non-numeric Health System results) TSuppresso 28 {Percent} Normal (applies T Suppressor [facility] rCD8+ to non-numeric CD8+ Health System results) [place]/Sup 1.23 {Ratio} Normal (applies [place]/Suppres Calderon patience pressor to non-numeric sor Health System results) Message DNR Test Normal (applies Message [facility] Performed to non-numeric Health System at: [facility] - results) [employer], [place] [address] Kelli Murdock M.D. LymphRel.C 918 Normal (applies Lymph Rel. [facility] ount {Cells/mcL} to non-numeric Count Health System results) CD19 103 Below low normal CD19 [facility] {Cells/mcL} Health System CD3 603 Below low normal CD3 [facility] {Cells/mcL} Health System HelperCD4+ 318 Below low normal [place] CD4+ [facility] {Cells/mcL} Health System SuppressCD 259 Normal (applies Suppress CD8+ [facility] 8+ {Cells/mcL} to non-numeric Health System results) ID Date Data Source [id number] 03/01/2013 12:45:00 PM EDT [facility] [...] for seroconversion is variable. Test Performed at: [facility] - [employer], [place] [address] Kelli Murdock M.D. ID Date Data Source [id number] 03/01/2013 12:45:00 PM EDT [facility] Name Value Range Interpretation Description Data Source(s ) Supporting Code Document(s ) Reagin Ab 1:16 Normal (applies to Titer-RPR [facility] [Titer] in non-numeric Health System Serum by results) RPR Reagin Ab Reactive Abnormal (applies RPR/VDRL. [facility] [Presence] to non-numeric Health System in Serum by results) RPR ID Date Data Source [id number] 03/01/2013 12:45:00 PM EDT [facility] System Name Value Range Interpretation Description Data Sup porting Code Source(s) Document(s ) Color YELLOW Normal (applies Color [facility] to non-numeric Health results) System Appearance of CLEAR Normal (applies Urine [facility] Urine to non-numeric Appearance Health results) System Specific 1.020 Normal (applies Urine [facility] gravity of to non-numeric Specific Health Urine results) [place] System pH.. 7.0 Normal (applies pH.. [facility] [...] [facility] [Units/volume] in to non-numeric Concentration [facility] System Urine results) Negative UrineBlood NEGATIVE Normal (applies to Urine Blood [facility] System non-numeric results) ID Date Data Source [id number] 03/01/2013 12:45:00 PM EDT [facility] [...] System Automated count ID Date Data Source [id number] 03/01/2013 12:45:00 PM EDT [facility] Name Value Range Interpretation Description Data Sup porting Code Source(s) Document(s ) Thyrotropin 0.770 Normal (applies Thyroid [facility] [Mass/volume] to non-numeric Stimulating Health Sy stem in Serum or results) Hormone, Serum Plasma ID Date Data Source [id number] 03/01/2013 12:45:00 PM EDT [facility] System Name Value Range Interpretation Description Data Source(s ) Supporting Code Document(s ) E3Ivgqmhl 6.3 ug/dl Normal (applies to T4 Thyroxine [facility] ne non-numeric Health System results) ID Date Data Source [id number] 03/01/2013 12:45:00 PM EDT [facility] [...] urine test abnormalities ID Date Data Source [id number] 03/01/2013 12:45:00 PM EDT [facility] alth [...] Serum or Plasma results) <200 mg/dL = [id number] - 239 md/dL = Borderline>240 mg/dL = [...] VLDL 16.8 Normal (applies to VLDL, Serum [facility] [Mass/volume] in Serum non-numeric results) System or Plasma CHDRisk 3.83 Normal (applies to CHD Risk [facility] Health non-numeric results) System ID Date Data Source [id number] 03/01/2013 12:45:00 PM EDT [facility]ie Garcia alth System Name Value Range Interpretation Description Data Sup porting Code Source(s) Document(s ) Creatine 347 Above high normal Creatine [facility] kinase.MB {IU/L} Kinase, Serum Health System [Mass/volume ] in Serum or Plasma ID Date Data Source [id number] 03/01/2013 03:49:00 PM EDT [facility] Garcia alth System Name Value Range Interpretation Code Description Data Lexy rce(s) Supporting Document(s ) FTA,Serum Reactive Abnormal (applies FTA, Serum [facility] to non-numeric Health System results) Reference Range: Non Reactive ID Date Data Source [id number] 03/01/2013 03:49:00 PM EDT [facility] Name [...] Equivocal>=1 .00 Positive ID Date Data Source [id number] 04/05/2013 12:20:00 PM EDT [facility] System Name Value Range Interpretation Description Data Sup porting Code Source(s) Document(s ) FTA,Ser ReactiveReference Abnormal FTA, Serum [facility] um Range: Nonreactive (applies to Health Test Performed at: non-numeric System [facility]) [facility], [place] [address] Kelli Murdock M.D. Result Reporting|Telephone |Cal| 3 at 3:50 PMCalled to: Johnna Name: [place] by: [email or web address]/22/2013 / 3:48 PM ID Date Data Source [id number] 04/05/2013 12:20:00 PM EDT [facility] System Name Value Range Interpretation Description Data Sup porting Code Source(s) Document(s ) TotalB-CD1 15 {Percent} Normal (applies Total B-CD19 [facility] 9 to non-numeric Health System results) TotalT-CD3 67 {Percent} Normal (applies Total T-CD3 [facility] to non-numeric Health System results) T-HelperCD 44 {Percent} Normal (applies T-[place] CD4+ [facility] 4+ to non-numeric Health System results) TSuppresso 21 {Percent} Normal (applies T Suppressor [facility] rCD8+ to non-numeric CD8+ Health System results) [place]/Sup 2.06 {Ratio} Normal (applies [place]/Suppres Calderon patience pressor to non-numeric sor Health System results) Message DNR Test Normal (applies Message [facility] Performed to non-numeric Health System at: [facility] - results) [facility], [place] [address] Kelli Murdock M.D. LymphRel.C 1238 Normal (applies Lymph Rel. [facility] ount {Cells/mcL} to non-numeric Count Health System results) CD19 189 Normal (applies CD19 [facility] {Cells/mcL} to non-numeric Health System results) CD3 827 Below low normal CD3 [facility] {Cells/mcL} Health System HelperCD4+ 535 Normal (applies [place] CD4+ [facility] {Cells/mcL} to non-numeric Health System results) SuppressCD 260 Normal (applies Suppress CD8+ [facility] 8+ {Cells/mcL} to non-numeric Health System results) ID Date Data Source [id number] 04/05/2013 12:20:00 PM EDT [facility] System Name Value Range Interpretation Description Data Sup porting Code Source(s) Document(s ) C.Trac Not Normal (applies C. [facility] homati DetectedReference to non-numeric Trachomatis Healt h sAmp Range: Not Detected results) Amp System N.Gono Not Normal (applies N. Gonorrhea [facility] rrheab DetectedReference to non-numeric by [facility] Health yLCR Range: Not Detected results) System This test was performed using the BD ProbeTec(TM) Chlamydia trachomatis and Neisseria gonorrhoeae Amplified DNA Assays. Test Performed at: [facility], [place] [address] Kelli Murdock M.D. ID Date Data Source [id number] 04/05/2013 12:20:00 PM EDT [facility] System Name Value Range Interpretation Code Description Data Lexy rce(s) Supporting Document(s ) Reagin Ab 1:32 Normal (applies to Titer-RPR [facility] [Titer] in non-numeric Health System Serum by results) RPR Result Reporting|Telephone|DR ARTHUR|1 at 4:34 PMCalled to:DR ARTHURTech Name:LISBETH OBANDO [facility] by:LEFT MESSAGE FOR DR ARTHUR (PATIENT HAS PREVIOUS REACTIVE RPR)04/06/2013 / 4:34 PM Reagin Ab [Presence] Reactive Abnormal (applies to RPR/VDRL . [facility] in Serum by RPR non-numeric results) Sys tem Result Reporting|Telephone|DR ARTHUR|1 at 4:34 PMCalled to:DR ARTHURTech Name:LISBETH House maximiliano by:LEFT MESSAGE FOR DR ARTHUR (PATIENT HAS PREVIOUS REACTIVE RPR)04/06/2013 / 4:34 PM ID Date Data Source [id number] 04/05/2013 12:20:00 PM EDT [facility] [...] System Automated count ID Date Data Source [id number] 04/05/2013 12:20:00 PM EDT [facility] que System Name [...] urine test abnormalities ID Date Data Source [id number] 04/05/2013 12:20:00 PM EDT [facility] System Name Value Range Interpretation Description Data Sup porting Code Source(s) Document(s ) Creatine 6266 Above high normal Creatine [facility] kinase.MB {IU/L} Kinase, Serum Health System [Mass/volume ] in Serum or Plasma ID Date Data Source [id number] 04/30/2013 11:37:00 AM EST [facility] System Name Value Range Interpretation Description Data Sup porting Code Source(s) Document(s ) FTA,Ser ReactiveReference Abnormal FTA, Serum [facility] um Range: Nonreactive (applies to Health Test Performed at: non-numeric System [facility] results) [place] [address] Kelli Murdock M.D. Result Reporting|Telephone |Cal| 3 at 10:20 AMCalled to: Johnna Name: Nuzhat by: [email or web address]/14/2013 / 10:19 AM ID Date Data Source [id number] 04/30/2013 11:37:00 AM EST [facility] Name Value Range Interpretation Description Data Sup porting Code Source(s) Document(s ) TotalB-CD1 15 {Percent} Normal (applies Total B-CD19 [facility] 9 to non-numeric Health System results) TotalT-CD3 68 {Percent} Normal (applies Total T-CD3 [facility] to non-numeric Health System results) T-HelperCD 45 {Percent} Normal (applies T-[place] CD4+ [facility] 4+ to non-numeric Health System results) TSuppresso 23 {Percent} Normal (applies T Suppressor [facility] rCD8+ to non-numeric CD8+ Health System results) [place]/Sup 1.99 {Ratio} Normal (applies [place]/Suppres Calderon patience pressor to non-numeric sor Health System results) Message DNR Test Normal (applies Message [facility] Performed to non-numeric Health System at: [facility] - results) [employer], [place] [address] Kelli Murdock M.D. LymphRel.C 1362 Normal (applies Lymph Rel. [facility] ount {Cells/mcL} to non-numeric Count Health System results) CD19 198 Normal (applies CD19 [facility] {Cells/mcL} to non-numeric Health System results) CD3 956 Normal (applies CD3 [facility] {Cells/mcL} to non-numeric Health System results) HelperCD4+ 647 Normal (applies [place] CD4+ [facility] {Cells/mcL} to non-numeric Health System results) SuppressCD 324 Normal (applies Suppress CD8+ [facility] 8+ {Cells/mcL} to non-numeric Health System results) ID Date Data Source [id number] 04/30/2013 11:37:00 AM EST [facility] Name Value Range Interpretation Description Data Source(s ) Supporting Code Document(s ) Reagin Ab 1:64 Normal (applies to Titer-RPR [facility] [Titer] in non-numeric Health System Serum by results) RPR Reagin Ab Reactive Abnormal (applies RPR/VDRL. [facility] [Presence] to non-numeric Health System in Serum by results) RPR ID Date Data Source [id number] 04/30/2013 11:37:00 AM EST [facility] [...] System Automated count ID Date Data Source [id number] 04/30/2013 11:37:00 AM EST [facility] [...] urine test abnormalities ID Date Data Source [id number] 04/30/2013 11:37:00 AM EST Jeanie grey System Name Value Range Interpretation Description Data Sup porting Code Source(s) Document(s ) Creatine 1581 Above high normal Creatine [facility] kinase.MB {IU/L} Kinase, Serum Health System [Mass/volume ] in Serum or Plasma ID Date Data Source [id number] 05/07/2013 10:49:00 AM EST [facility] System Name Value Range Interpretation Description Data Sup porting Code Source(s) Document(s ) FTA,Ser ReactiveReference Abnormal FTA, Serum [facility] um Range: Nonreactive (applies to Health Test Performed at: non-numeric System [facility] results) [place] [address] Kelli Murdock M.D. Result Reporting|Telephone |Marianela| 3 at 10:09 AMCalled to:Ander Name: JenniforReadback by: [email or web address]/26/2013 / 10:08 AMResult Reporting|Telephone |[facility]| 3 at 10:09 AMCalled to: MarianelaKatlin Name: JenniforReadback by: [email or web address]/26/2013 / 10:09 AM ID Date Data Source [id number] 05/07/2013 10:49:00 AM EST [facility] Name Value Range Interpretation Description Data Source(s ) Supporting Code Document(s ) Reagin Ab 1:64 Normal (applies to Titer-RPR [facility] [Titer] in non-[facility] System Serum by results) RPR Reagin Ab Reactive Abnormal (applies RPR/VDRL. [facility] [Presence] to non-numeric Health System in Serum by results) RPR ID Date Data Source [id number] 05/07/2013 10:49:00 AM EST [facility] System Name Value Range Interpretation Description Data Sup porting Code Source(s) Document(s ) Creatine 1251 Above high normal Creatine [facility] kinase.MB {IU/L} Kinase, Serum Health System [Mass/volume ] in Serum or Plasma ok ID Date Data Source [id number] 08/15/2013 11:22:00 AM EST [facility] System Name Value Range Interpretation Code Description Data Lexy rce(s) Supporting Document(s ) FTA,Serum REACTIVE Normal (applies to FTA, Serum [facility] non-numeric Health System results) ID Date Data Source [id number] 08/15/2013 11:22:00 AM EST [facility] Name Value Range Interpretation Description Data Sup porting Code Source(s) Document(s ) TotalB-CD1 7 {Percent} Normal (applies Total B-CD19 [facility] 9 to non-numeric Health results) System TotalT-CD3 64 {Percent} Normal (applies Total T-CD3 [facility] to non-numeric Health results) System T-HelperCD 35 {Percent} Normal (applies T-[place] CD4+ [facility] 4+ to non-numeric Health results) System TSuppresso 29 {Percent} Normal (applies T Suppressor [facility] rCD8+ to non-numeric CD8+ Health results) System [place]/Sup 1.22 {Ratio} Normal (applies [place]/Suppres Calderon patience pressor to non-numeric sor Health results) System Message SEE NOTE Normal (applies Message [facility] Lymphocyte to non-numeric Health subset results) System results confirmed by repeat analysis. Test Performed at: [facility], [place] [address] Kelli Murdock M.D. LymphRel.C 715 Below low normal Lymph Rel. [facility] ount {Cells/mcL} Count Health System CD19 48 Below low normal CD19 [facility] {Cells/mcL} Health System CD3 458 Below low normal CD3 [facility] {Cells/mcL} Health System HelperCD4+ 250 Below low normal [place] CD4+ [facility] {Cells/mcL} Health System SuppressCD 205 Normal (applies Suppress CD8+ [facility] 8+ {Cells/mcL} to non-numeric Health results) System ID Date Data Source [id number] 08/15/2013 11:22:00 AM EST [facility] System Name Value Range Interpretation Description Data Sup porting Code Source(s) Document(s ) C.Trac Not Normal (applies C. [facility] homati DetectedReference to non-numeric Trachomatis Healt h sAmp Range: Not Detected results) Amp System N.Gono Not Normal (applies N. Gonorrhea [facility] rrheab DetectedReference to non-numeric by [facility] Health yLCR Range: Not Detected results) System This test was performed using the APTIMA COMBO2(R) Assay (GEN-PROBE(R)). Test Performed at: [facility] [employer], [place] [address] Kelli Murdock M.D. ID Date Data Source [id number] 08/15/2013 11:22:00 AM EST [facility] [...] / 11:58 AM ID Date Data Source [id number] 08/15/2013 11:22:00 AM EST [facility] [...] System Automated count ID Date Data Source [id number] 08/15/2013 11:22:00 AM EST [facility] [...] urine test abnormalities ID Date Data Source [id number] 08/15/2013 11:22:00 AM EST [facility] System Name Value Range Interpretation Description Data Sup porting Code Source(s) Document(s ) Creatine 2338 Above high normal Creatine [facility] kinase.MB {IU/L} Kinase, Serum Health System [Mass/volume ] in Serum or Plasma ID Date Data Source [id number] 12/27/2013 12:00:00 PM EDT [facility] System Name Value Range Interpretation Description Data Source(s ) Supporting Code Document(s ) C-Reacti 0.6 mg/dL Normal (applies to C-Reactive [facility] veProtei non-numeric Protein Health System nQuantit results) Quantitative ative Please be advised that patients taking C arboxypenicillins may exhibit falsely decreased C-Reactive Protein levels due to an analytical interference in this assay. Test Performed at: [facility] [place] [address] Kelli Murdock M.D. ID Date Data Source [id number] 12/27/2013 12:00:00 PM EDT [facility] System Name Value Range Interpretation Description Data Sup porting Code Source(s) Document(s ) TotalB-CD1 9 {Percent} Normal (applies Total B-CD19 [facility] 9 to non-numeric Health System results) TotalT-CD3 68 {Percent} Normal (applies Total T-CD3 [facility] to non-numeric Health System results) T-HelperCD 34 {Percent} Normal (applies T-[place] CD4+ [facility] 4+ to non-numeric Health System results) TSuppresso 27 {Percent} Normal (applies T Suppressor [facility] rCD8+ to non-numeric CD8+ Health System results) [place]/Sup 1.29 {Ratio} Normal (applies [place]/Suppres Calderon patience pressor to non-numeric sor Health System results) Message DNR Test Normal (applies Message [facility] Performed to non-numeric Health System at: [facility] - results) [employer], [place] [address] Kelli Murdock M.D. LymphRel.C 616 Below low normal Lymph Rel. [facility] ount {Cells/mcL} Count Health System CD19 58 Below low normal CD19 [facility] {Cells/mcL} Health System CD3 413 Below low normal CD3 [facility] {Cells/mcL} Health System HelperCD4+ 205 Below low normal [place] CD4+ [facility] {Cells/mcL} Health System SuppressCD 160 Below low normal Suppress CD8+ [facility] 8+ {Cells/mcL} Health System ID Date Data Source [id number] 12/27/2013 12:00:00 PM EDT [facility] System Name Value Range Interpretation Description Data Sup porting Code Source(s) Document(s ) HepatitisCRati 0.10 {Ratio} Normal (applies Hepatitis C [facility] o to non-numeric Ratio Health results) System HepatitisCAnti Non Normal (applies Hepatitis C [facility] body,Serum. ReactiveReferen to non-numeric Antibody, Health ce Range: Non results) Serum. System Reactive Test Performed at: [facility] [employer], [place] [address] Kelli Murdock M.D. ID Date Data Source [id number] 12/27/2013 12:00:00 PM EDT [facility] al[facility] System Name Value Range Interpretation Description Data Sup porting Code Source(s) Document(s ) Aldolase 124.1 U/L Above high normal Aldolase, [facility] [Enzymatic Serum Health System activity/vol ume] in Serum or Plasma Confirmed by repeat analysis. Test Perfo rmed at: [facility] [employer], [place] [address] Kelli rico M.D. ID Date Data Source [id number] 12/27/2013 12:00:00 PM EDT [facility] System Name Value Range Interpretation Description Data Sup porting Code Source(s) Document(s ) Erythrocyte 18 Above high Sedimentation [facility] sedimentation {mmlhr} normal Rate, Health rate by 2H Erythrocyte System Westergren method ID Date Data Source [id number] 12/27/2013 12:00:00 PM EDT [facility] alth System Name Value Range Interpretation [...] System Automated count ID Date Data Source [id number] 12/27/2013 12:00:00 PM EDT [facility] [...] urine test abnormalities ID Date Data Source [id number] 12/27/2013 12:00:00 PM EDSophia grey System Name Value Range Interpretation [...] [facility] [Mass/volume] in to non-numeric Health S Burst Mediate Serum or Plasma results) <200 mg/dL = Xzbwkryic783 - 239 md/dL = Borderline>240 mg/dL = [...] VLDL 26.8 Normal (applies to VLDL, Serum [facility] Health [Mass/volume] in Serum non-numeric results) System or Plasma CHDRisk 5.88 Above high normal CHD Risk [facility] H ealt System ID Date Data Source [id number] 12/27/2013 12:00:00 PM EDT [facility] System Name Value Range Interpretation Description Data Sup porting Code Source(s) Document(s ) Creatine 6475 Above high normal Creatine [facility] kinase.MB {IU/L} Kinase, Serum Health System [Mass/volume ] in Serum or Plasma ID Date Data Source [id number] 12/27/2013 01:05:00 PM EDT [facility] He alth System Name Value Range Interpretation [...] IU/mL. For additional information, please refer to http://education.Clix Software.Posit Science/fa q/QFT (This link is being provided for informational/educational pu rposes only.) Test Performed at: [facility], [place] [address] Kelli Murdock M.D. ID Date Data Source [id number] 01/21/2014 12:01:00 PM EDT Jeanie grey System Name Value [...] IU/mL. For additional information, please refer to http://education.Clix [employer].Posit Science/fa q/QFT (This link is being provided for informational/educational pu rposes only.) Test Performed at: [facility], [place] [address] Kelli Murdock M.D. ID Date Data Source [id number] 01/21/2014 04:55:00 PM EDT [facility] Name Value Range Interpretation Description Data Sup porting Code Source(s) Document(s ) FTA,Ser ReactiveReference Abnormal FTA, Serum [facility] um Range: Nonreactive (applies to Health Test Performed at: non-numeric System [facility] results) [facility], [place] [address] Kelli Murdock M.D. ID Date Data Source [id number] 01/21/2014 04:55:00 PM EDT [facility] Name Value Range Interpretation Description Data Sup porting Code Source(s) Document(s ) C.Trac DetectedReference Abnormal C. [facility] homati Range: Not Detected (applies to [facility] A Positive non-[facility] System CT or NG Nucleic results) Acid Amplification Test (NAAT) result should be considered presumptive evidence of infection. The result should be evaluated along with physical examination and other diagnostic findings. However, in cases of an unexpected Positive result, testing a second specimen using an alternative NAAT method may be beneficial. Tests using either Strand Displacement Amplification or Administrative Services Director Mediated Amplification are available if warranted (test codes 74821P and 82424S respectively). Result Reporting|Telephone |Brianna for Dr. Arthur| 01/24/2014 at 3:09 PMCalled to: Brianna ArthurTech Name: JenniforReadback by:Brianna 01/24/2014 / 3:07 PM N.Gono Not Normal (applies N. Gonorrhea [facility] rrheab DetectedReference to non-numeric by [facility] yLCR Range: Not Detected results) System This test was performed using the APTIMA COMBO2(R) Assay (GEN-PROBE(R)). Test Performed at: [facility], [place] [address] Kelli Murdock M.D. ID Date Data Source [id number] 01/21/2014 04:55:00 PM EDT [facility] Name Value Range Interpretation Description Data Source(s ) Supporting Code Document(s ) Reagin Ab 3 Normal (applies to Titer-RPR [facility] [Titer] in non-[facility] System Serum by results) RPR Reagin Ab Reactive Abnormal (applies RPR. [facility] [Presence] to non-numeric Health System in Serum by results) RPR Result Reporting|Telephone|DR ARTHUR| 01/22/2014 at 2:16 PMCalled to:DR ARTHURTech Name:LISBETH [facility] by:DR ARTHUR 01/22/2014 / 2:14 PM ID Date Data Source [id number] 01/21/2014 04:55:00 PM EDT [facility] He alth [...] System Automated count ID Date Data Source [id number] 01/21/2014 04:55:00 PM EDT [facility] He que System Name [...] urine test abnormalities ID Date Data Source [id number] 01/21/2014 04:55:00 PM EDT [facility] System Name Value Range Interpretation Description Data Sup porting Code Source(s) Document(s ) Creatine 2795 Above high normal Creatine [facility] kinase.MB {IU/L} Kinase, [facility] [Mass/volume ] in Serum or Plasma ID Date Data Source [id number] 01/21/2014 04:58:00 PM EDT [facility] System Name Value Range Interpretation Description Data Sup porting Code Source(s) Document(s ) C.Trach Cancelled see C. Trachomatis [facility] omatisA [id number]/[facility] mp [place] registration N.Gonor Cancelled see N. Gonorrhea [facility] rheabyL [id number]/[facility] CR [place] registration ID Date Data Source [id number] 01/21/2014 04:58:00 PM EDT [facility] alth System Name Value Range Interpretation Description Data Sup porting Code Source(s) Document(s ) Reagin Ab Cancelled see RPR. [facility] [Presence] [facility] in Serum registration/ by RPR [id number] ID Date Data Source [id number] 01/21/2014 04:58:00 PM EDT [facility] alth System Name Value Range Interpretation Description Data Sup porting Code Source(s) Document(s ) Leukocytes Cancelled see WBC Count [facility] [#/volume] in [facility] Unspecified registration System specimen by Automated count Erythrocytes Cancelled see RBC Count [facility] [#/volume] in [facility] Blood by registration System Automated count Hemoglobin Cancelled see Hemoglobin, [facility] [Mass/volume] [facility] [employer] Blood Health in Blood registration System Hematocrit Cancelled see Hematocrit, [facility] [Volume [facility] Fraction] of registration System Blood Erythrocyte Cancelled see MCV [facility] mean [facility] corpuscular registration System volume [Entitic volume] by Automated count Erythrocyte Cancelled see MCH [facility] mean [facility] corpuscular registration System hemoglobin [Entitic mass] by Automated count Erythrocyte Cancelled see MCHC [facility] mean [facility] corpuscular registration System hemoglobin concentration [Mass/volume] by Automated count Erythrocyte Cancelled see RDW-CV [facility] distribution [facility] width [Entitic registration System volume] by Automated count Platelets Cancelled see Platelet [facility] [#/volume] in [facility] Plasma by registration System Automated count Platelet mean Cancelled see MPV [facility] volume [Entitic [facility] volume] in registration System Blood by Automated count Monocytes Cancelled see Monocyte [facility] [#/volume] in [facility] Blood by Manual registration System count Eosinophils Cancelled see Eosinophil [facility] [#/volume] in [facility] Blood registration System Neutrophils Cancelled see Absolute [facility] [#/volume] in [facility] Body fluid registration Count System Basophils Cancelled see Basophil [facility] [#/volume] in [facility] Blood by registration System Automated count Lymphocyte Cancelled see Lymphocyte [facility] percent [facility] differential registration System count (procedure) Neutrophils/100 Cancelled see Neutrophil % [facility] leukocytes in [facility] Blood by registration System Automated count Monocytes/100 Cancelled see Monocyte % [facility] leukocytes in [facility] Blood registration System Eosinophils/100 Cancelled see Eosinophil % [facility] leukocytes in [facility] Unspecified registration System specimen Basophils/100 Cancelled see Basophil % [facility] leukocytes in [facility] Unspecified registration System specimen by Manual count Lymphocytes Cancelled see Lymphocyte % [facility] [#/volume] in [facility] Blood by registration System Automated count ID Date Data Source [id number] 01/21/2014 04:58:00 PM EDT [facility] System Name Value Range Interpretation Description Data Sup porting Code Source(s) Document(s ) Sodium Cancelled see Sodium, [facility] [Moles/volume] [id number]/[facility] in Serum or [facility] Plasma registration Potassium Cancelled see Potassium, [facility] [Mass/volume] in [id number]/[facility] Serum or Plasma [place] System registration Chloride Cancelled see Chloride, [facility] [Moles/volume] Serum Health in Serum or [facility] Plasma registration Carbon dioxide, Cancelled see CO2, Serum [facility] total Health [Moles/volume] [facility] in Serum or registration Plasma TotalProtein Cancelled see Total [facility] Protein Health [facility] System registration Glucose Cancelled see Glucose, [facility] [Mass/volume] in Serum Health Serum or Plasma [facility] registration Urea nitrogen Cancelled see Blood Urea [facility] [Mass/volume] in Ri Nitrogen, Health Serum or Plasma [facility] Serum System registration Creatinine Cancelled see Creatinine, [facility] [Mass/volume] in Serum Health Serum or Plasma [facility] registration Alkaline Cancelled see Alkaline [facility] phosphatase Phosphatase, Health isoenzymes [facility] Serum System [Enzymatic registration activity/volume] in Serum or Plasma by Heat stability Bilirubin.total Cancelled see Bilirubin, [facility] [Mass/volume] in Serum Total Health Serum or Plasma [facility] System registration Aspartate Cancelled see Aspartate [facility] aminotransferase Ri Transaminase Health [Enzymatic [facility] , Serum System activity/volume] registration in Serum or Plasma by With P-5'-P Albumin Cancelled see Albumin, [facility] [Mass/volume] in Serum Health Serum or Plasma [facility] System registration I.Phosphorus Cancelled see I. [facility] Ri Phosphorus Health Golden System registration Alanine Cancelled see Alanine [facility] aminotransferase Ri Aminotransfe Health [Enzymatic [facility] rase, Serum System activity/volume] registration in Serum or Plasma Calcium Cancelled see Calcium, [facility] [Mass/volume] in Ri Total Serum Health Serum or Plasma [facility] System registration Urate Cancelled see Uric Acid, [facility] [Mass/volume] in Serum Health Serum or Plasma [facility] System registration Anion gap in Cancelled see Anion Gap [facility] Serum or Plasma Ri Health Golden System registration Glomerular Cancelled see GFR [facility] filtration Ri Health rate/1.73 sq [facility] M.predicted registration [Volume Rate/Area] in Serum or Plasma by Creatinine-based formula (CKD-EPI) ID Date Data Source [id number] 01/21/2014 04:58:00 PM EDT [facility] al[facility] System Name Value Range Interpretation Description Data Sup porting Code Source(s) Document(s ) Creatine Cancelled see Creatine [facility] kinase.MB 8271298/Mt Kinase, Serum Health [Mass/volum [facility] e] in Serum registration or Plasma ID Date Data Source [id number] 03/14/2014 11:25:00 AM EDT [facility] al[facility] System Name Value Range Interpretation Description Data Sup porting Code Source(s) Document(s ) C.Trac Not Normal (applies C. [facility] homati DetectedReference to non-numeric Trachomatis Healt h sAmp Range: Not Detected results) Amp System N.Gono Not Normal (applies N. Gonorrhea [facility] rrheab DetectedReference to non-numeric by [facility] Health yLCR Range: Not Detected results) System This test was performed using the APTIMA COMBO2(R) Assay (GENVistaGen TherapeuticsPROBE(R)). Test Performed at: [facility], [place] [address] Kelli Murdock M.D. ID Date Data Source [id number] 03/14/2014 11:25:00 AM EDT [facility] alth System Name Value Range Interpretation Description Data Source(s ) Supporting Code Document(s ) Reagin Ab 1:2 Normal (applies to Titer-RPR [facility] [Titer] in non-[facility] Health System Serum by results) RPR Reagin Ab Reactive Abnormal (applies RPR. [facility] [Presence] to non-numeric Health System in Serum by results) RPR NOTIFIED NIKKY/ RB OK @ 1111 03/15/14.Previously released as Non-reactive-(1) on 03/15/2014, 11:10 [place] [id number] -(1) - NOTIFIED NIKKY/ RB OK @ 1111 03/15/14. ID Date Data Source [id number] 03/14/2014 11:25:00 AM EDT [facility] alth System Name Value Range Interpretation Description Data Sup porting Code Source(s) Document(s ) Color YELLOW Normal (applies Color [facility] to non-numeric Health results) System Appearance of CLEAR Normal (applies Urine [facility] Urine to non-numeric Appearance Health results) System Specific gravity 1.030 Normal (applies Urine Specific Mo [facility] of Urine to non-numeric [facility] results) System pH.. 6.0 Normal (applies [...] Health results) System ID Date Data Source [id number] 03/14/2014 11:25:00 AM DENAE grey System Name Value Range [...] normal Health System ID Date Data Source [id number] 03/14/2014 11:25:00 AM EDT [facility] System Name Value Range Interpretation Description Data Sup porting Code Source(s) Document(s ) Creatine 225 Above high normal Creatine [facility] kinase.MB {IU/L} Kinase, Serum Health System [Mass/volume ] in Serum or Plasma ID Date Data Source [id number] 03/31/2020 02:50:15 AM EDT [facility] al[facility] System Name [...] Health results) System ID Date Data Source [id number] 03/31/2020 02:50:15 AM EDT Jeanie Garcia alth System Name [...] S ystem Serum or Plasma results) <200 mg/sz=afasrezgq924-165 mg/dl=border line>240 mg/dl=elevated Cholesterol in HDL 29.0 [...] - 6.9Highest >7.0 ID Date Data Source [id number] 03/31/2020 02:50:15 AM DENAE Garcia alth System Name Value Range Interpretation [...] urine test abnormalities ID Date Data Source [id number] 03/31/2020 02:50:15 AM EDT [facility] System Name Value Range Interpretation Description [...] totoxic T-lymphocytes.For additional information, please refer tohttp://educa tion.Clix Software.Posit Science/faq/204(This link is being provided for informational/educ ational purposes only.)Test Performed at:[facility] - [facility], [place], [place] [address]SqkhedvyTawnya Leon M.D. ID Date Data Source [id number] 03/31/2020 02:50:15 AM EDT [facility] System Name Value Range Interpretation Description Data Sup porting Code Source(s) Document(s ) T-HelperCD 37 Normal (applies T-[place] CD4+ [facility] 4+ to non-numeric Health System results) Message DNRTest Normal (applies Message [facility] Performed to non-numeric Health System at:[facility] - results) [employer] [facility], [place], [place] [address]JysshpuBimal Leon M.D. LymphRel.C 1583 Normal (applies Lymph Rel. [facility] ount to non-numeric Count Health System results) HelperCD4+ 593 Normal (applies [place] CD4+ [facility] to non-numeric Health System results) ID Date Data Source [id number] 03/31/2020 02:50:15 AM EDT [facility] System Name Value Range Interpretation Description Data Sup porting Code Source(s) Document(s ) HepatitisCRati 0.03 {Ratio} Normal (applies Hepatitis C [facility] o to non-numeric Ratio Health results) System HepatitisCVira Non Normal (applies Hepatitis C [facility] lAntibody ReactiveReferen to non-numeric Viral Health ce Range: Non results) Antibody System Reactive ID Date Data Source [id number] 03/31/2020 02:50:15 AM EDT [facility] System Name Value Range Interpretation Description Data Sup porting Code Source(s) Document(s ) C.Trac Not Normal (applies C. [facility] homati DetectedReference to non-numeric Trachomatis Healt h sAmp Range: Not Detected results) Amp System N.Gono Not Normal (applies N. Gonorrhea [facility] rrheab DetectedReference to non-numeric by [facility] yLCR Range: Not results) System DetectedThis test was performed using the APTIMA COMBO2(R) Assay(GEN-PROBE(R)) .Please add the following message:For additional information, please refer tohttp://education. Minekeys.co m/faq/GEK252(This link is being provided for informational/educa tionalpurposes only)Test Performed at:[facility] - [employer], [place], [place] [address]JbajijqcAndres Leon M.D. ID Date Data Source [id number] 03/31/2020 02:50:15 AM EDT [facility] System Name Value Range Interpretation Description Data Source(s ) Supporting Code Document(s ) Reagin Ab Non-react Normal (applies to RPR. [facility] [Presence] [place] non-numeric Health System in Serum by results) RPR ID Date Data Source [id number] 03/31/2020 02:50:15 AM EDT [facility] System Name Value Range Interpretation Description Data Sup porting Code Source(s) Document(s ) T-HelperCD 48 Normal (applies T-[place] CD4+ [facility] 4+ to non-numeric Health System results) Message DNRTest Normal (applies Message [facility] Performed to non-numeric Health System at:[facility] - results) [facility] [facility], [place], [place] [address]HlizsdqBimal Leon M.D. LymphRel.C 1296 Normal (applies Lymph Rel. [facility] ount to non-numeric Count Health System results) HelperCD4+ 616 Normal (applies [place] CD4+ [facility] to non-numeric Health System results) ID Date Data Source [id number] 03/31/2020 02:50:15 AM EDT [facility] System Name Value Range Interpretation Description Data Sup porting Code Source(s) Document(s ) N.GonorrhoeaeR Not Normal (applies N. [facility] NATMARectal DetectedReferen to non-numeric Gonorrhoeae Healt h ce Range: Not results) RNA TMA System DetectedThis Rectal test was performed using the APTIMA COMBO2(R)Assay (GEN-PROBE(R)). The analytical performance characteristics of thisassay have been determined [place] The modificationsha ve not been cleared or approved by the FDA. Thisassay has been validated pursuant to the CLIAregulations and is used for clinical purposes. Chlamydia Not Normal (applies C. [facility] trachomatis DetectedReferen to non-numeric Trachomatis Healt h rRNA ce Range: Not results) RNA, TMA System [Presence] in DetectedThis Rectal Anal by Probe test was and target performed amplification at:[employer] [address] [address]Nbhk Performed at:[employer] [address] [address]Eatgqkpdeepthi Carter M.D., Ph.D. ID Date Data Source [id number] 03/31/2020 02:50:15 AM EDT [facility] alth System Name [...] characteristics of this assay havebeen determined by [facility].Perfo rmance characteristics refer to the analyticalperfo rmance of the test.This test was performed at:[employer] [address] [address]Bshw Performed at:[employer] [facility], [address] [place], [place] [address]Vcexufcdeepthi Carter M.D., Ph.D. ID Date Data Source [id number] 03/31/2020 02:50:15 AM EDT Jeanie grey System Name Value [...] urine test abnormalities ID Date Data Source [id number] 03/31/2020 02:50:15 AM EDT Jeanie grey System Name Value [...] Health results) System ID Date Data Source [id number] 03/31/2020 02:50:15 AM EDT [facility] System Name [...] normal Health System ID Date Data Source [id number] 03/31/2020 02:50:15 AM EDT [facility]th System Name [...] results) % System ID Date Data Source [id number] 03/31/2020 02:50:15 AM EDT [facility] He [facility]th System Name [...] urine test abnormalities ID Date Data Source [id number] 03/31/2020 02:50:15 AM EDT [facility] He [facility]th System Name [...] target amplification method ID Date Data Source [id number] 03/31/2020 02:50:15 AM EDT [facility]th System Name [...] Health results) System ID Date Data Source [id number] 03/31/2020 02:50:15 AM EDT [facility] He [facility]th System Name Value Range Interpretation Description Data Sup porting Code Source(s) Document(s ) Thyrotropin 0.982 Normal (applies Thyroid [facility] [Mass/volume] {mIU/mL} to non-numeric Stimulating Health Sy stem in Serum or results) Hormone, Serum Plasma ID Date Data Source [id number] 03/31/2020 02:50:15 AM EDT [facility]th System Name [...] required for diagnosis. ID Date Data Source [id number] 03/31/2020 02:50:15 AM EDT [facility]th System Name [...] urine test abnormalities ID Date Data Source [id number] 03/31/2020 02:50:15 AM DENAE grey System Name Value Range Interpretation Description Data Sup porting Code Source(s) Document(s ) Color Colorless Normal (applies Color [facility] to non-numeric Health results) System Appearance of CLEAR Normal (applies Urine [facility] Urine to non-numeric Appearance Health results) System Specific gravity 1.002 Normal (applies Urine [facility] of Urine to non-numeric Specific Health results) [facility] System pH.. 7.0 Normal (applies pH.. [facility] [...] Health System results) ID Date Data Source [id number] 03/31/2020 02:50:15 AM EDT [facility]th System Name Value Range Interpretation Description Data Sup porting Code Source(s) Document(s ) C.Trac Not Normal (applies C. [facility] homati DetectedReference to non-numeric Trachomatis Healt h sAmp Range: Not Detected results) Amp System N.Gono Not Normal (applies N. Gonorrhea [facility] rrheab DetectedReference to non-numeric by [facility] Health yLCR Range: Not results) System DetectedThis test was performed using the APTIMA COMBO2(R) Assay(GEN-PROBE(R)) .For additional information, please refer tohttp://education. Minekeys.co m/faq/CJV010(This link is being provided for informational/educa tionalpurposes only)Test Performed at:[facility] [employer], [place] [id number] Leon M.D. ID Date Data Source [id number] 03/31/2020 02:50:15 AM EDT [facility] System Name Value Range Interpretation Description Data Source(s ) Supporting Code Document(s ) Reagin Ab Non-react Normal (applies to RPR. [facility] [Presence] [place] non-numeric Health System in Serum by results) RPR ID Date Data Source [id number] 03/31/2020 02:50:15 AM EDT [facility] He alth System Name Value Range Interpretation Code Description Data Lexy rce(s) Supporting Document(s ) TlT6OPi 152.98 Normal (applies to TaG0DKt [facility] non-numeric results) Health Sy stem tHbWB 4553.63 Normal (applies to tHbWB [facility] non-numeric results) Health Sy stem %HbA1C 5.23 % Normal (applies to %HbA1C [facility] non-numeric results) Health Sy stem ID Date Data Source [id number] 03/31/2020 02:50:15 AM EDT [facility] He [facility]th System Name Value Range Interpretation Description Data Sup porting Code Source(s) Document(s ) Color YELLOW Normal (applies Color [facility] to non-numeric Health results) System Appearance of CLEAR Normal (applies Urine [facility] Urine to non-numeric Appearance Health results) System Specific gravity 1.015 Normal (applies Urine Specific Mo [facility] of Urine to non-numeric [facility] results) System pH.. 6.0 Normal (applies [...] Health results) System ID Date Data Source [id number] 03/31/2020 02:50:15 AM EDT Jeanie grey System Name Value [...] GENE MUTATIONS: N/APR GENE MUTATIONS: N/A __[facility] Jun 2018 Interpretation AlgorithmThe method used in [...] analytical performance characteristics have been determined by [facility]. It has not beencleared or approved by FDA. This assay has beenvalidated pursuant to the CLIA regulations and isused for clinical purposes.This test was performed at: [facility], [address] [place], [place] [address]Jcqn Performed at:[facility] [address] [place], [place] [address]JkAndrea GOODRICH Date Data Source [id number] 03/31/2020 02:50:15 AM EDT Jeanie grey System Name Value [...] Health } System ID Date Data Source [id number] 03/31/2020 02:50:15 AM EDT [facility] System Name Value Range Interpretation Description Data Sup porting Code Source(s) Document(s ) HepatitisCRati 0.00 {Ratio} Normal (applies Hepatitis C [facility] o to non-numeric Ratio Health results) System HepatitisCVira Non Normal (applies Hepatitis C [facility] lAntibody ReactiveReferen to non-numeric Viral Health ce Range: Non results) Antibody System ReactiveFor additional information, please refer tohttp://educat ion.Dr. Z/faq/F AQ194(This link is being provided for informational/e ducationalpurpo ses only.)Test Performed at:[facility], [place], [place] [address]LcqjvqagAndres Leon M.D. ID Date Data Source [id number] 03/31/2020 02:50:15 AM EDT [facility] System Name Value Range Interpretation Description Data Source(s ) Supporting Code Document(s ) Hepatiti 38 Normal (applies to Hepatitis B [facility] sBSurfac {mIU/mL} non-numeric [facility] eAntibod results) Antibody. y. Patient has immunity to hepatitis B viru s.For additional information, please refer tohttp://[employer]/ faq/LYV170(This link is being provided for informational/educational purposes only) .Test Performed at:[facility], [place] [address] Andres Leon M.D. ID Date Data Source [id number] 03/31/2020 02:50:15 AM EDT [facility] Name Value Range Interpretation Description Data Sup porting Code Source(s) Document(s ) Hepati Non Normal (applies Hepatitis B [facility] tisBCo ReactiveReference to non-numeric [facility] reAnti Range: Non results) Antibody, System body,T ReactiveTest Total otal Performed at:[facility], [place], [place] Maxine Leon M.D. NONREACTIVE = Anti-HBc [...] previous HBV infection. ID Date Data Source [id number] 03/31/2020 02:50:15 AM EDT [facility] Name Value Range Interpretation Description Data Sup porting Code Source(s) Document(s ) HepatitisBSurf Non Normal (applies Hepatitis B [facility] aceAntigen. ReactiveReferen to non-numeric [facility] ce Range: Non results) Antigen. System ReactiveTest Performed at:[facility], [place], [place] Maxine Leon M.D. HepatitisBSurf DNRTest Normal (applies Hepatitis B [facility] aceAntigenNeut Performed to non-numeric [facility] at:[facility] results) Antigen Neut [facility], [place], [place] [address]DasgyhjaTawnya Leon M.D. ID Date Data Source [id number] 03/31/2020 02:50:15 AM EDT [facility] Name Value Range Interpretation [...] Serum or Plasma results) <200 mg/dL = [id number] - 239 md/dL = Borderline>240 mg/dL = [...] Above high normal CHD Risk [facility] System ID Date Data Source [id number] 03/31/2020 02:50:15 AM EDT [facility] Name [...] urine test abnormalities ID Date Data Source [id number] 03/31/2020 02:50:15 AM EDT [facility] Name Value Range Interpretation Description Data Sup porting Code Source(s) Document(s ) T-HelperCD 37 Normal (applies T-[place] CD4+ [facility] 4+ to non-numeric Health System results) Message DNRTest Normal (applies Message [facility] Performed to non-numeric Health System at:[facility] - results) [facility], [place], [place] [address]Bimal Leon M.D. LymphRel.C 1661 Normal (applies Lymph Rel. [facility] ount to non-numeric Count Health System results) HelperCD4+ 617 Normal (applies [place] CD4+ [facility] to non-numeric Health System results) ID Date Data Source [id number] 03/31/2020 02:50:15 AM EDT [facility] Name [...] Health results) System ID Date Data Source [id number] 03/31/2020 02:50:15 AM EDT [facility] Name [...] required for diagnosis. ID Date Data Source [id number] 03/31/2020 02:50:15 AM EDT [facility] Name Value Range Interpretation Description Data Sup porting Code Source(s) Document(s ) Creatine 153 Normal (applies Creatine [facility] kinase.MB {IU/L} to non-numeric Kinase, Serum Health Syst em [Mass/volume results) ] in Serum or Plasma ID Date Data Source [id number] 03/31/2020 02:50:15 AM EDT [facility] Name [...] urine test abnormalities ID Date Data Source [id number] 07/27/2012 10:00:00 AM EST [facility] Name Value Range Interpretation Code Description Data Lexy rce(s) Supporting Document(s ) FTA,Serum REACTIVE Normal (applies to FTA, Serum [facility] non-numeric [facility] System results) ID Date Data Source [id number] 07/27/2012 10:00:00 AM EST [facility] Name Value Range Interpretation Description Data Sup porting Code Source(s) Document(s ) Crypto Not Normal (applies Cryptococcal [facility] coccal DetectedReference to non-numeric Antigen. Health Antige Range: Not Detected results) System n. Test Performed at: [facility] [employer], [place] [address] Kelli Murdock M.D. ID Date Data Source [id number] 07/27/2012 10:00:00 AM EST [facility] Name Value Range Interpretation Description Data Source(s ) Supporting Code Document(s ) Reagin Ab 1:32 Normal (applies to Titer-RPR [facility] [Titer] in non-numeric Health System Serum by results) RPR Reagin Ab Reactive Abnormal (applies RPR/VDRL. [facility] [Presence] to non-numeric Health System in Serum by results) RPR ID Date Data Source [id number] 07/27/2012 10:00:00 AM EST [facility] Name Value Range Interpretation Description Data Sup porting Code Source(s) Document(s ) Creatine 339 Above high normal Creatine [facility] kinase.MB {IU/L} Kinase, Serum Health System [Mass/volume ] in Serum or Plasma ID Date Data Source [id number] 08/30/2012 10:21:00 AM EDT [facility] Name Value Range Interpretation Description Data Sup porting Code Source(s) Document(s ) FTA,Ser ReactiveReference Abnormal FTA, Serum [facility] um Range: Nonreactive (applies to Health Test Performed at: non-numeric System [facility] results) [employer], [place] [address] Kleli Murdock M.D. Result Reporting|Telephone |Germán| 09/04/2012 at 9:02 AMCalled to: GermánKatlin Name: FranciscoReadback by: Francisco 09/04/2012 / 9:02 AM ID Date Data Source [id number] 08/30/2012 10:21:00 AM EDT [facility] Name Value Range Interpretation Description Data Sup porting Code Source(s) Document(s ) TotalB-CD1 8 {Percent} Normal (applies Total B-CD19 [facility] 9 to non-numeric Health System results) TotalT-CD3 67 {Percent} Normal (applies Total T-CD3 [facility] to non-numeric Health System results) T-HelperCD 35 {Percent} Normal (applies T-[place] CD4+ [facility] 4+ to non-numeric Health System results) TSuppresso 31 {Percent} Normal (applies T Suppressor [facility] rCD8+ to non-numeric CD8+ Health System results) [place]/Sup 1.13 {Ratio} Normal (applies [place]/Suppres Calderon patience pressor to non-numeric sor Health System results) Message DNR Test Normal (applies Message [facility] Performed to non-numeric Health System at: [facility] - results) [place] [address] Kelli Murdock M.D. LymphRel.C 1171 Normal (applies Lymph Rel. [facility] ount {Cells/mcL} to non-numeric Count Health System results) CD19 96 Below low normal CD19 [facility] {Cells/mcL} Health System CD3 849 Normal (applies CD3 [facility] {Cells/mcL} to non-numeric Health System results) HelperCD4+ 471 Below low normal [place] CD4+ [facility] {Cells/mcL} Health System SuppressCD 416 Normal (applies Suppress CD8+ [facility] 8+ {Cells/mcL} to non-numeric Health System results) ID Date Data Source [id number] 08/30/2012 10:21:00 AM EDT [facility] Name Value Range Interpretation Code Description Data Lexy rce(s) Supporting Document(s ) Reagin Ab 1:16 Normal (applies to Titer-RPR [facility] [Titer] in non-numeric Health System Serum by results) RPR Result Reporting|Telephone|DR. ARTHUR| 08/31/2012 at 2:04 PMCalled to:DR. Markham Name:LISBETH Martin by:DR. ARTHUR 08/31/2012 / 2:03 PM Reagin Ab [Presence] Reactive Abnormal (applies to RPR/VDRL . [facility] in Serum by RPR non-numeric results) Sys tem Result Reporting|Telephone|DR. ARTHUR| 08/31/2012 at 2:04 PMCalled to:DR. Markham Name:LISBETH Martin by:DR. ARTHUR 08/31/2012 / 2:03 PM ID Date Data Source [id number] 08/30/2012 10:21:00 AM EDT [facility] al[facility] [...] System Automated count ID Date Data Source [id number] 08/30/2012 10:21:00 AM EDT [facility] Name Value Range Interpretation Description [...] urine test abnormalities ID Date Data Source [id number] 08/30/2012 10:21:00 AM EDT [facility] System Name Value Range Interpretation Description Data Sup porting Code Source(s) Document(s ) Creatine 206 Above high normal Creatine [facility] kinase.MB {IU/L} Kinase, Serum Health System [Mass/volume ] in Serum or Plasma ID Date Data Source [id number] 09/30/2012 03:33:00 PM EDT [facility] [...] System Automated count ID Date Data Source [id number] 09/30/2012 03:33:00 PM EDT [facility] Name [...] urine test abnormalities ID Date Data Source [id number] 09/30/2012 03:33:00 PM EDT [facility] Name Value Range Interpretation Description Data Sup porting Code Source(s) Document(s ) Creatine 127 Normal (applies Creatine [facility] kinase.MB {IU/L} to non-numeric Kinase, Serum Health Syst em [Mass/volume results) ] in Serum or Plasma ID Date Data Source [id number] 11/30/2012 10:35:00 AM EDT [facility] Name Value Range Interpretation Description Data Sup porting Code Source(s) Document(s ) TotalB-CD1 9 {Percent} Normal (applies Total B-CD19 [facility] 9 to non-numeric Health System results) TotalT-CD3 66 {Percent} Normal (applies Total T-CD3 [facility] to non-numeric Health System results) T-HelperCD 34 {Percent} Normal (applies T-[place] CD4+ [facility] 4+ to non-numeric Health System results) TSuppresso 30 {Percent} Normal (applies T Suppressor [facility] rCD8+ to non-numeric CD8+ Health System results) [place]/Sup 1.14 {Ratio} Normal (applies [place]/Suppres Calderon patience pressor to non-numeric sor Health System results) Message DNR Test Normal (applies Message [facility] Performed to non-numeric Health System at: [facility] - results) [employer], [place] [address] Kelli Murdock M.D. LymphRel.C 1079 Normal (applies Lymph Rel. [facility] ount {Cells/mcL} to non-numeric Count Health System results) CD19 94 Below low normal CD19 [facility] {Cells/mcL} [facility] System CD3 735 Below low normal CD3 [facility] {Cells/mcL} [facility] System HelperCD4+ 400 Below low normal [place] CD4+ [facility] {Cells/mcL} [facility] SuppressCD 349 Normal (applies Suppress CD8+ [facility] 8+ {Cells/mcL} to non-numeric Health System results) ID Date Data Source [id number] 11/30/2012 10:35:00 AM EDT [facility] Name Value Range Interpretation Description Data Source(s ) Supporting Code Document(s ) Reagin Ab Non-react Normal (applies to RPR/VDRL. [facility] [Presence] felipa non-numeric Health System in Serum by results) RPR ID Date Data Source [id number] 11/30/2012 10:35:00 AM EDT [facility] [...] System Automated count ID Date Data Source [id number] 11/30/2012 10:35:00 AM EDT [facility] [...] urine test abnormalities ID Date Data Source [id number] 03/07/2015 02:58:00 PM EDT [facility] Name Value Range Interpretation Description Data Sup porting Code Source(s) Document(s ) Erythrocyte 14 Normal (applies Sedimentation [facility] sedimentation {mmlhr} to non-numeric Rate, Health rate by 2H results) Erythrocyte System Westergren method ID Date Data Source [id number] 03/07/2015 02:58:00 PM EDT [facility] [...] urine test abnormalities ID Date Data Source [id number] 03/07/2015 02:58:00 PM EDT [facility] Name Value Range Interpretation Description Data Sup porting Code Source(s) Document(s ) Creatine 782 Above high normal Creatine [facility] kinase.MB {IU/L} Kinase, Serum Health System [Mass/volume ] in Serum or Plasma ID Date Data Source [id number] 05/12/2015 03:07:00 PM EST [facility] Name Value Range Interpretation Code Description Data Lexy rce(s) Supporting Document(s ) FTA,Serum Reactive Normal (applies to FTA, Serum [facility] non-numeric Health System results) Result Reporting|Telephone|DR. ARTHUR| 05/14/2015 at 9:03 AMCalled to: DR. ARTHURTech Name: BTReadback by: DR. MARTÍNEZ05/14/2015 / 9:03 AM Reference Range: Non Reactive ID Date Data Source [id number] 05/12/2015 03:07:00 PM EST [facility] Name Value Range Interpretation Description Data Sup porting Code Source(s) Document(s ) TotalB-CD1 2 {Percent} Below low normal Total B-CD19 [facility] TotalT-CD3 69 Normal (applies Total T-CD3 [facility] to non-numeric [facility] System results) T-HelperCD 39 Normal (applies T-[place] CD4+ [facility] 4+ to non-numeric Health System results) TSuppresso 25 Normal (applies T Suppressor [facility] rCD8+ to non-numeric CD8+ Health System results) [place]/Sup 1.59 Normal (applies [place]/Suppres [facility] pressor to non-numeric sor Health System results) Message DNR Test Normal (applies Message [facility] Performed to non-numeric Health System at: [facility]BR - results) [employer], [place] [address] Andres Leon M.D. LymphRel.C 895 Normal (applies Lymph Rel. [facility] ount to non-numeric Count Health System results) CD19 < 20 Below low normal CD19 [facility] CD3 628 Below low normal CD3 [facility] {Cells/mcL} [facility] System HelperCD4+ 358 Below low normal [place] CD4+ [facility] {Cells/mcL} [facility] System SuppressCD 226 Normal (applies Suppress CD8+ [facility] 8+ to non-numeric Health System results) ID Date Data Source [id number] 05/12/2015 03:07:00 PM EST [facility] [...] System Automated count ID Date Data Source [id number] 05/12/2015 03:07:00 PM EST [facility] [...] urine test abnormalities ID Date Data Source [id number] 05/12/2015 03:07:00 PM EST [facility] System Name Value Range Interpretation Description Data Sup porting Code Source(s) Document(s ) Creatine 494 Above high normal Creatine [facility] kinase.MB {IU/L} Kinase, Serum Health System [Mass/volume ] in Serum or Plasma ID Date Data Source [id number] 05/12/2015 03:07:00 PM EST [facility] System Name Value Range Interpretation Description Data Source(s ) Supporting Code Document(s ) Reagin Ab 1:2 Normal (applies to Titer-RPR [facility] [Titer] in non-[facility] System Serum by results) RPR Reagin Ab Reactive Abnormal (applies RPR. [facility] [Presence] to non-[facility] System in Serum by results) RPR ID Date Data Source [id number] 07/28/2015 10:43:36 AM EST [facility] System Name Value Range Interpretation Description [...] System Automated count ID Date Data Source [id number] 07/28/2015 10:43:36 AM EST [facility] [...] urine test abnormalities ID Date Data Source [id number] 07/28/2015 03:37:00 PM EST [facility] Name Value Range Interpretation Description Data Sup porting Code Source(s) Document(s ) TotalB-CD1 2 {Percent} Below low normal Total B-CD19 [facility] TotalT-CD3 66 Normal (applies Total T-CD3 [facility] to non-numeric Health results) System T-HelperCD 41 Normal (applies T-[place] CD4+ [facility] 4+ to non-numeric Health results) System TSuppresso 22 Normal (applies T Suppressor [facility] rCD8+ to non-numeric CD8+ Health results) System [place]/Sup 1.85 Normal (applies [place]/Suppres [facility] pressor to non-numeric sor Health results) System Message SEE NOTE Normal (applies Message [facility] Lymphocyte to non-numeric Health subset results) System results confirmed by repeat analysis. Test Performed at: [facility], [place] [address] Andres Leon M.D. LymphRel.C 717 Below low normal Lymph Rel. [facility] ount {Cells/mcL} Count Health System CD19 < 20 Below low normal CD19 [facility] CD3 492 Below low normal CD3 [facility] {Cells/mcL} Health System HelperCD4+ 320 Below low normal [place] CD4+ [facility] {Cells/mcL} [facility] System SuppressCD 173 Below low normal Suppress CD8+ [facility] 8+ {Cells/mcL} Health System ID Date Data Source [id number] 07/28/2015 03:37:00 PM EST [facility] [...] Health System results) ID Date Data Source [id number] 07/28/2015 03:37:00 PM EST [facility] Name Value Range Interpretation Description Data Source(s ) Supporting Code Document(s ) Reagin Ab Non-react Normal (applies to RPR. [facility] [Presence] [place]ip[place] non-numeric Health System in Serum by results) RPR ID Date Data Source [id number] 12/04/2015 10:03:56 AM EDT [facility] Name Value Range Interpretation Description Data Sup porting Code Source(s) Document(s ) HepatitisCRati 0.10 {Ratio} Normal (applies Hepatitis C [facility] o to non-numeric Ratio Health results) System HepatitisCVira Non Normal (applies Hepatitis C [facility] lAntibody ReactiveReferen to non-numeric Viral Health ce Range: Non results) Antibody System Reactive ID Date Data Source [id number] 12/04/2015 10:03:56 AM EDT [facility] Name Value Range Interpretation Description Data Sup porting Code Source(s) Document(s ) Color YELLOW Normal (applies Color [facility] to non-numeric Health results) System Appearance of CLEAR Normal (applies Urine [facility] Urine to non-numeric Appearance Health results) System Specific gravity 1.025 Normal (applies Urine Specific [place] [facility] of Urine to non-numeric [facility] results) System pH.. 5.5 Normal (applies [...] Health results) System ID Date Data Source [id number] 12/04/2015 10:03:56 AM EDT [facility] [...] System Automated count ID Date Data Source [id number] 12/04/2015 10:03:56 AM EDT [facility] System Name Value [...] urine test abnormalities ID Date Data Source [id number] 12/04/2015 10:03:56 AM [facility] System Name Value Range Interpretation Description Data Sup porting Code Source(s) Document(s ) Triglyceride 126 Normal (applies Triglycerides, [facility] [Mass/volume] mg/dl to non-numeric Serum Health in Serum or results) System Plasma Optimal = < 100 mg/dLBoderline High = 15 0 - 199 mg/dLHigh = 200 - 499 mg/dLVery High = > 500 mg/dL Cholesterol 163 mg/dl Normal (applies Cholesterol, Serum [facility] [Mass/volume] in to non-numeric Health S ystem Serum or Plasma results) <200 mg/dL = [id number] - 239 md/dL = Borderline>240 mg/dL = High Risk Cholesterol in HDL 32.0 mg/dL Normal (applies HDL Cholestero l [facility] [Mass/volume] in to non-numeric Serum Health S ystem Serum or Plasma results) Cholesterol in LDL 105.8 mg/dL Normal (applies Low Density [facility] [Mass/volume] in to non-numeric Lipoprotein, Healt h System Serum or Plasma results) Calculated OPTIMAL: LESS THAN 100 mg/dLNEAR OPTIMAL : 100 - 129 mg/dLBODERLINE HIGH: 130 - 150 mg/dL Cholesterol in VLDL 25.2 Normal (applies to VLDL, Serum [facility] Health [Mass/volume] in Serum non-numeric results) System or Plasma CHDRisk 5.09 Normal (applies to CHD Risk [facility] Health non-numeric results) System ID Date Data Source [id number] 12/04/2015 10:03:56 AM EDT [facility] Name Value Range Interpretation Description Data Sup porting Code Source(s) Document(s ) Creatine 911 Above high normal Creatine [facility] kinase.MB {IU/L} Kinase, Serum Health System [Mass/volume ] in Serum or Plasma ID Date Data Source [id number] 12/04/2015 03:48:00 PM EDT [facility] al[facility] System Name Value Range Interpretation [...] For additional information, please refer to [email or web address] (This link is being provided for informational/e ducational purposes only.) ID Date Data Source [id number] 12/04/2015 03:48:00 PM EDT [facility] Name Value Range Interpretation Code Description Data Lexy rce(s) Supporting Document(s ) FTA,Serum reactive Normal (applies to FTA, Serum [facility] non-numeric Health System results) Result Reporting|Telephone|| 12/05/2015 at 3:08 PMCalled to:Tech Name:[facility] by:DR PRINGLE 12/05/2015 / 3:08 PM Reference Range: Non Reactive ID Date Data Source [id number] 12/04/2015 03:48:00 PM EDT [facility] Name Value Range Interpretation Description Data Sup porting Code Source(s) Document(s ) TotalB-CD1 4 {Percent} Below low normal Total B-CD19 [facility] TotalT-CD3 59 Normal (applies Total T-CD3 [facility] to non-numeric Health System results) T-HelperCD 28 {Percent} Below low normal T-[place] CD4+ Calderon patience 4+ Health System TSuppresso 27 Normal (applies T Suppressor [facility] rCD8+ to non-numeric CD8+ Health System results) [place]/Sup 1.06 Normal (applies [place]/Suppres [facility] pressor to non-numeric sor Health System results) Message DNRTest Normal (applies Message [facility] Performed to non-numeric Health System at:TBR - results) [employer], [place], [place] [address]NqkqjceBimal Leon M.D. LymphRel.C 1170 Normal (applies Lymph Rel. [facility] ount to non-numeric Count Health System results) CD19 42 Below low normal CD19 [facility] {Cells/mcL} Health System CD3 708 Below low normal CD3 [facility] {Cells/mcL} Health System HelperCD4+ 345 Below low normal [place] CD4+ [facility] {Cells/mcL} Health System SuppressCD 326 Normal (applies Suppress CD8+ [facility] 8+ to non-numeric Health System results) ID Date Data Source [id number] 12/04/2015 03:48:00 PM EDT [facility] Name Value Range Interpretation Description Data Sup porting Code Source(s) Document(s ) C.Trac Not Normal (applies C. [facility] homati DetectedReference to non-numeric [facility] sAmp Range: Not Detected results) Amp System N.Gono Not Normal (applies N. Gonorrhea [facility] rrheab DetectedReference to non-numeric by [facility] Health yLCR Range: Not results) System DetectedThis test was performed using the APTIMA COMBO2(R) Assay(GENVistaGen TherapeuticsPROBE(R)) .Test Performed at:[facility], [place], [place] [address]Andres Leon M.D. ID Date Data Source [id number] 12/04/2015 03:48:00 PM EDT [facility] Name Value Range Interpretation Description Data Source(s ) Supporting Code Document(s ) Reagin Ab 1:1 Normal (applies to Titer-RPR [facility] [Titer] in non-numeric Health System Serum by results) RPR Reagin Ab Reactive Abnormal (applies RPR. [facility] [Presence] to non-numeric Health System in Serum by results) RPR ID Date Data Source [id number] 04/26/2016 03:49:00 PM EST [facility] Name Value Range Interpretation Description Data Sup porting Code Source(s) Document(s ) Deprecated NO GROWTH Aerobic [facility] Bacteria Culture, Urine Health System identified in Urine by Aerobe culture ID Date Data Source [id number] 04/26/2016 03:49:00 PM EST [facility] Name Value Range Interpretation Description Data Sup porting Code Source(s) Document(s ) TotalB-CD1 3 {Percent} Below low normal Total B-CD19 [facility] TotalT-CD3 63 Normal (applies Total T-CD3 [facility] to non-numeric Health System results) T-HelperCD 33 Normal (applies T-[place] CD4+ [facility] 4+ to non-numeric Health System results) TSuppresso 27 Normal (applies T Suppressor [facility] rCD8+ to non-numeric CD8+ Health System results) [place]/Sup 1.26 Normal (applies [place]/Suppres [facility] pressor to non-numeric sor Health System results) Message DNRTest Normal (applies Message [facility] Performed to non-numeric Health System at:TBR - results) [employer], [place], [place] [address]LlqpqvnBimal Leon M.D. LymphRel.C 937 Normal (applies Lymph Rel. [facility] ount to non-numeric Count Health System results) CD19 33 Below low normal CD19 [facility] {Cells/mcL} Health System CD3 574 Below low normal CD3 [facility] {Cells/mcL} Health System HelperCD4+ 298 Below low normal [place] CD4+ [facility] {Cells/mcL} Health System SuppressCD 237 Normal (applies Suppress CD8+ [facility] 8+ to non-numeric Health System results) ID Date Data Source [id number] 04/26/2016 03:49:00 PM EST [facility] Name Value Range Interpretation Description Data Sup porting Code Source(s) Document(s ) C.Trac Not Normal (applies C. [facility] homati DetectedReference to non-numeric [facility] sAmp Range: Not Detected results) Amp System N.Gono Not Normal (applies N. Gonorrhea [facility] rrheab DetectedReference to non-numeric by [facility] Health yLCR Range: Not results) System DetectedThis test was performed using the APTIMA COMBO2(R) Assay(GEN-PROBE(R)) .Test Performed at:[facility], [place], [place] [address]AckirihzAndres Leon M.D. ID Date Data Source [id number] 04/26/2016 03:49:00 PM EST [facility] Name Value Range Interpretation Description Data Sup porting Code Source(s) Document(s ) Color YELLOW Normal (applies Color [facility] to non-numeric Health results) System Appearance of CLEAR Normal (applies Urine [facility] Urine to non-numeric Appearance Health results) System Specific gravity < 1.005 Normal (applies Urine Specific [place] [facility] of Urine to non-numeric [facility] results) System pH.. 6.0 Normal (applies [...] non-numeric System results) ID Date Data Source [id number] 04/26/2016 03:49:00 PM EST [facility] [...] [facility] results) ID Date Data Source [id number] 04/26/2016 03:49:00 PM EST [facility] [...] System Automated count ID Date Data Source [id number] 04/26/2016 03:49:00 PM EST [facility] [...] urine test abnormalities ID Date Data Source [id number] 04/26/2016 03:49:00 PM EST [facility] Name Value Range Interpretation Description Data Sup porting Code Source(s) Document(s ) Creatine 655 Above high normal Creatine [facility] kinase.MB {IU/L} Kinase, Serum Health System [Mass/volume ] in Serum or Plasma ID Date Data Source [id number] 04/26/2016 03:49:00 PM EST [facility] Name Value Range Interpretation Description Data Source(s ) Supporting Code Document(s ) Reagin Ab 1:4 Normal (applies to Titer-RPR [facility] [Titer] in non-numeric Health System Serum by results) RPR Reagin Ab Reactive Abnormal (applies RPR. [facility] [Presence] to non-numeric Health System in Serum by results) RPR ID Date Data Source [id number] 04/27/2016 04:37:35 PM EST [facility] Name Value Range Interpretation Description Data Sup porting Code Source(s) Document(s ) FTA,Ser ReactiveReference Abnormal FTA, Serum [facility] um Range: (applies to Health NonreactiveTest non-numeric System Performed at:[facility] - results) [employer], [address] Leon M.D. Result Reporting|Telephone |Owen Arthur|04/28/2016 at 3:01 PMCalled to:Owen ArthurTech Name:Socorro andrea by:Shey106/28/2015 / 2:59 PM ID Date Data Source [id number] 07/26/2016 01:57:00 PM EST [facility] Name Value Range Interpretation Description Data Source(s ) Supporting Code Document(s ) FTA,Seru Cancelled FTA, Serum [facility] m wrong order Health System ID Date Data Source [id number] 07/26/2016 01:57:00 PM EST [facility] Name Value Range Interpretation Description Data Source(s ) Supporting Code Document(s ) Reagin Ab 1:1 Normal (applies to Titer-RPR [facility] [Titer] in non-numeric Health System Serum by results) RPR Reagin Ab Reactive Abnormal (applies RPR. [facility] [Presence] to non-numeric Health System in Serum by results) RPR ID Date Data Source [id number] 07/27/2016 03:40:12 PM EST [facility] Name Value Range Interpretation Description Data Sup porting Code Source(s) Document(s ) FTA,Ser ReactiveReference Abnormal FTA, Serum [facility] um Range: (applies to Health NonreactiveTest non-numeric System Performed at:[facility] - results) [employer], [place], [place] Maxine Leon M.D. ID Date Data Source [id number] 09/27/2016 03:38:00 PM EDT [facility] Name Value Range Interpretation Description Data Sup porting Code Source(s) Document(s ) TotalB-CD 1 {Percent} Below low normal Total B-CD19 [facility] 19 [facility] TotalT-CD 78 Normal (applies Total T-CD3 [facility] 3 to non-numeric Health results) System T-HelperC 51 Normal (applies T-[place] CD4+ [facility] D4+ to non-numeric Health results) System TSuppress 25 Normal (applies T Suppressor [facility] orCD8+ to non-numeric CD8+ Health results) System [place]/Gaytan 2.09 Normal (applies [place]/Suppre [facility] ppressor to non-numeric ssor Health results) System Message SEE Normal (applies Message [facility] NOTELymphocyte to non-numeric Health subset results results) System confirmed by repeat analysis. Test Performed at:[facility] - [employer], [place], [place] Maxine Leon M.D. LymphRel. 741 {Cells/mcL} Below low normal Lymph Rel. [facility] Count Count [facility] CD19 < 20 Below low normal CD19 [facility] CD3 582 {Cells/mcL} Below low normal CD3 [facility] ore [facility] System HelperCD4 382 {Cells/mcL} Below low normal [place] CD4+ Calderon patience + Health System SuppressC 183 Normal (applies Suppress CD8+ [facility] D8+ to non-numeric Health results) System ID Date Data Source [id number] 04/20/2017 11:42:00 AM EDT [facility] [...] must be>=0.35 IU/mL.For additional information, please refer [email or web address] [email or web address](This link is being provided for informational/educationalpu rposes only.)Test Performed at:[facility] [employer], [place], [place] [address]Lpytokpvrk Leon M.D. ID Date Data Source [id number] 04/20/2017 11:42:00 AM EDT [facility] System Name Value Range Interpretation Description Data Sup porting Code Source(s) Document(s ) TotalB-CD1 1 {Percent} Below low normal Total B-CD19 [facility] 9 [facility] TotalT-CD3 64 Normal (applies Total T-CD3 [facility] to non-numeric [facility] System results) T-HelperCD 35 Normal (applies T-[place] CD4+ [facility] 4+ to non-numeric Health System results) TSuppresso 25 Normal (applies T Suppressor [facility] rCD8+ to non-numeric CD8+ Health System results) [place]/Sup 1.40 Normal (applies [place]/Suppres [facility] pressor to non-numeric sor Health System results) Message DNRTest Normal (applies Message [facility] Performed to non-numeric Health System at:[facility] - results) [employer], [place], [place] [address]OuzcjwwBimal Leon M.D. LymphRel.C 1560 Normal (applies Lymph Rel. [facility] ount to non-numeric Count Health System results) CD19 < 20 Below low normal CD19 [facility] CD3 999 Normal (applies CD3 [facility] to non-numeric Health System results) HelperCD4+ 542 Normal (applies [place] CD4+ [facility] to non-numeric [facility] System results) SuppressCD 387 Normal (applies Suppress CD8+ [facility] 8+ to non-numeric Health System results) ID Date Data Source [id number] 04/20/2017 11:42:00 AM EDT [facility] Name Value Range Interpretation Description Data Sup porting Code Source(s) Document(s ) C.Trac Not Normal (applies C. [facility] homati DetectedReference to non-numeric [facility] sAmp Range: Not Detected results) Amp System N.Gono Not Normal (applies N. Gonorrhea [facility] rrheab DetectedReference to non-numeric by [facility] yLCR Range: Not results) System DetectedThis test was performed using the APTIMA COMBO2(R) Assay(GEN-PROBE(R)) .Test Performed at:[facility] - [employer], [place], [place] [address]IowdfubtAndres Leon M.D. ID Date Data Source [id number] 04/20/2017 11:42:00 AM EDT [facility] System Name Value Range Interpretation Description Data Sup porting Code Source(s) Document(s ) Color YELLOW Normal (applies Color [facility] to non-numeric Health results) System Appearance of CLEAR Normal (applies Urine [facility] Urine to non-numeric Appearance Health results) System Specific gravity 1.020 Normal (applies Urine Specific [facility] of Urine to non-numeric [facility] results) System pH.. 5.5 Normal (applies [...] Health results) System ID Date Data Source [id number] 04/20/2017 11:42:00 AM EDT [facility] [...] Health } System ID Date Data Source [id number] 04/20/2017 11:42:00 AM EDT [facility] que [...] urine test abnormalities ID Date Data Source [id number] 04/20/2017 11:42:00 AM EDT [facility] [...] Serum or Plasma results) <200 mg/dL = Amwgadkiv759 - 239 md/dL = Borderline>240 mg/dL = [...] Above high normal CHD Risk [facility] ID Date Data Source [id number] 04/20/2017 11:42:00 AM EDT [facility] Name Value Range Interpretation Description Data Source(s ) Supporting Code Document(s ) Reagin Ab Non-react Normal (applies to RPR. [facility] [Presence] felipa non-numeric Health System in Serum by results) RPR ID Date Data Source [id number] 04/21/2017 11:41:00 AM EDT [facility]ie [facility] al[facility] System Name Value Range Interpretation Description Data Sup porting Code Source(s) Document(s ) Chlamydia Not Normal (applies C. [facility] trachomatis DetectedReferen to non-numeric [facility]alt [facility] rRNA ce Range: Not results) RNA TMA System [Presence] in Detected Unspecified specimen by Probe and target amplification method Neisseria Not Normal (applies N. [facility]onfi[facility] gonorrhoeae DetectedReferen to non-numeric Gonorrhoeae Healt h rRNA ce Range: Not results) RNA TMA System [Presence] in DetectedThis Unspecified test was specimen by performed using Probe and the [employer] target COMBO2(R)Assay amplification (GENVistaGen TherapeuticsPROBE(R)). method The performance characteristics of this assay havebeen determined by [facility].Perfo rmance characteristics refer to the analyticalperfo rmance of the test.This test was performed at:[employer] [address] [id number] Performed at:[facility] [employer] [facility], [address] [place] [id number] Carter M.D., Ph.D. ID Date Data Source [id number] 04/21/2017 11:41:00 AM EDT Jeanie grey System [...] CYTOTECHNOLOGIS T: MKP, CT(ASCP) CT screening location: [place] [address] PATHOLOGIST: Gilma Turk M.D., Board Certified in Anatomic Pathology For questions contact Anatomic Pathology Client Service at [phone] (electronic signature) _SPECIMEN DESCRIPTION: A) The specimen is received labeled with the patient''s name and consists of 10 cc(s) of fixed cloudy fluid in PreservCyt Solution. One ThinPrep(s) made and stained with Papanicolaou stain. Gross exam for all specimen parts performed at: [facility]. [place] [address]. Die Filer: Cassidy Cunha M.D. CLIA No: [id number] ID Date Data Source [id number] 04/21/2017 11:41:00 AM EDT [facility]ie [facility] al[facility] System Name Value Range Interpretation Description Data Sup porting Code Source(s) Document(s ) N.GonorrhoeaeR Not Normal (applies N. [facility] NATMARectal DetectedReferen to non-numeric Gonorrhoeae Healt h ce Range: Not results) RNA TMA System DetectedThis Rectal test was performed using the APTIMA COMBO2(R)Assay (GEN-PROBE(R)). The analytical performance characteristics of thisassay have been [place] The modificationsha ve not been cleared or approved by the FDA. Thisassay has been validated pursuant to the CLIAregulations and is used for clinical purposes. Chlamydia Not Normal (applies C. [facility] trachomatis DetectedReferen to non-numeric Trachomatis Healt h rRNA ce Range: Not results) RNA, TMA System [Presence] in DetectedThis Rectal Anal by Probe test was and target performed amplification at:[facility] [address] [id number] Performed at:[facility] [employer] [facility], [address] [place], [place] [address]Aebackddeepthi Carter M.D., Ph.D. ID Date Data Source [id number] 09/22/2017 10:56:00 AM EDT [facility] System Name Value Range Interpretation Description Data Sup porting Code Source(s) Document(s ) T-HelperCD 37 Normal (applies T-[place] CD4+ [facility] 4+ to non-numeric Health System results) Message DNRTest Normal (applies Message [facility] Performed to non-numeric Health System at:[facility] - results) [employer], [place], [place] [address]QhruymnBimal Leon M.D. LymphRel.C 1219 Normal (applies Lymph Rel. [facility] ount to non-numeric Count Health System results) HelperCD4+ 447 Below low normal [place] CD4+ [facility] {Cells/mcL} Health System ID Date Data Source [id number] 05/17/2012 11:30:00 AM EST [facility] [...] Serum or Plasma results) <200 mg/dL = Bingjqyvt122 - 239 md/dL = Borderline>240 mg/dL = [...] non-numeric results) System ID Date Data Source [id number] 05/17/2012 11:30:00 AM EST Jeanie [facility] System Name Value Range Interpretation Description Data Sup porting Code Source(s) Document(s ) Creatine 126 Normal (applies Creatine [facility] kinase.MB {IU/L} to non-numeric Kinase, Serum Health Syst em [Mass/volume results) ] in Serum or Plasma ID Date Data Source [id number] 12/01/2011 02:00:00 PM EDT [facility] [...] by uL} results) System Automated count Neutrophils/100 52.8 % Normal (applies Neutrophil % Calderon patience leukocytes in to non-numeric Health Blood by results) System Automated count Lymphocyte 0.7 Normal (applies Lymphocyte [facility] percent {10\\S\\3_ to non-numeric Absolute Health differential uL} results) System count (procedure) Monocytes/100 22.1 % Above high normal Monocyte % [facility] leukocytes in Health Blood System Eosinophils/100 1.5 % Normal (applies Eosinophil % Calderon patience leukocytes in to non-numeric Health Unspecified results) System specimen Basophils/100 1.8 % Above high normal Basophil % [facility] leukocytes in Health Unspecified System specimen by Manual count Lymphocytes 21.8 % Normal (applies Lymphocyte % [facility] [#/volume] in to non-numeric Health Blood by results) System Automated count ID Date Data Source [id number] 12/01/2011 02:00:00 PM EDT [facility] Jose grey System Name Value [...] in Serum or results) System Plasma Creatinine 0.70 mg/dl Below low Creatinine, [facility] [Mass/volume] normal Serum Health in Serum or System Plasma Urea nitrogen 10 mg/dl Normal (applies Blood Urea [facility] [Mass/volume] to non-numeric Nitrogen, Health in Serum or results) Serum System Plasma Alkaline 62 {IU/L} Normal (applies [...] urine test abnormalities ID Date Data Source [id number] 12/01/2011 02:00:00 PM EDT Jeanie grey System [...] Serum or Plasma results) <200 mg/dL = Redgwexvu886 - 239 md/dL = Borderline>240 mg/dL = High Risk Cholesterol in LDL 130.6 mg/dL Normal (applies Low Density M [facility] [Mass/volume] in to non-numeric Lipoprotein, Healt h System Serum or Plasma results) Calculated OPTIMAL: LESS THAN 100 mg/dLNEAR OPTIMAL : 100 - 129 mg/dLBODERLINE HIGH: 130 - 150 mg/dL Cholesterol in HDL 42.0 mg/dL Normal (applies HDL Cholestero l, [facility] [Mass/volume] in to non-numeric Serum Health S ystem Serum or Plasma results) Cholesterol in VLDL 17.4 Normal (applies VLDL, Serum Mo [facility] [Mass/volume] in to non-numeric Health S ystem Serum or Plasma results) CHDRisk 4.52 Normal (applies CHD Risk [facility] to non-numeric Health System results) ID Date Data Source [id number] 12/23/2011 12:30:00 PM EDT [facility] Name Value Range Interpretation Description Data Sup porting Code Source(s) Document(s ) TotalB-CD1 8 {Percent} Normal (applies Total B-CD19 [facility] 9 to non-numeric Health System results) TotalT-CD3 72 {Percent} Normal (applies Total T-CD3 [facility] to non-numeric Health System results) T-HelperCD 15 {Percent} Below low normal T-[place] CD4+ Calderon patience 4+ Health System TSuppresso 54 {Percent} Above high normal T Suppressor Calderon patience rCD8+ CD8+ Health System [place]/Sup 0.28 {Ratio} Below low normal [place]/Suppres Ray efi[facility] pressor sor Health System Message DNR Test Normal (applies Message [facility] Performed to non-numeric Health System at: [facility] - results) [employer], [place] [address] Kelli Murdock M.D. LymphRel.C 442 Below low normal Lymph Rel. [facility] ount {Cells/mcL} Count Health System CD19 34 Below low normal CD19 [facility] {Cells/mcL} Health System CD3 326 Below low normal CD3 [facility] {Cells/mcL} Health System HelperCD4+ 71 Below low normal [place] CD4+ [facility] {Cells/mcL} Health System SuppressCD 249 Normal (applies Suppress CD8+ [facility] 8+ {Cells/mcL} to non-numeric Health System results) ID Date Data Source [id number] 12/23/2011 01:30:00 PM EDT [facility] Name Value Range Interpretation Description Data Sup porting Code Source(s) Document(s ) Albumin Cancelled Albumin, Serum [facility] [Mass/volu wrong oder Health System me] in Serum or Plasma ID Date Data Source [id number] 01/10/2012 04:41:35 PM EDT [facility] [...] results) System Estimate ID Date Data Source [id number] 01/10/2012 04:41:35 PM EDT [facility] Name Value Range Interpretation Description Data Sup porting Code Source(s) Document(s ) Erythrocyte 10 Normal (applies Sedimentation [facility] sedimentation {mmlhr} to non-numeric Rate, Health rate by 2H results) Erythrocyte System Westergren method ID Date Data Source [id number] 01/10/2012 04:41:35 PM EDT [facility] [...] System Automated count ID Date Data Source [id number] 01/10/2012 04:41:35 PM EDT [facility] [...] urine test abnormalities ID Date Data Source [id number] 01/10/2012 04:41:35 PM EDT Jeanie Garcia alth System Name Value Range Interpretation Description Data Sup porting Code Source(s) Document(s ) Creatine 74 {IU/L} Normal (applies Creatine [facility] kinase.MB to non-numeric Kinase, Serum Health Syst em [Mass/volume results) ] in Serum or Plasma ID Date Data Source [id number] 02/17/2012 12:00:00 PM EDT [facility] Name Value Range Interpretation Description Data Sup porting Code Source(s) Document(s ) TotalB-CD1 7 {Percent} Normal (applies Total B-CD19 [facility] 9 to non-numeric Health System results) TotalT-CD3 72 {Percent} Normal (applies Total T-CD3 [facility] to non-numeric Health System results) T-HelperCD 33 {Percent} Normal (applies T-[place] CD4+ [facility] 4+ to non-numeric Health System results) TSuppresso 36 {Percent} Normal (applies T Suppressor [facility] rCD8+ to non-numeric CD8+ Health System results) [place]/Sup 0.93 {Ratio} Normal (applies [place]/Suppres Calderon patience pressor to non-numeric sor Health System results) Message DNR Test Normal (applies Message [facility] Performed to non-numeric Health System at: [facility] - results) [place] [address] Kelli Murdock M.D. LymphRel.C 993 Normal (applies Lymph Rel. [facility] ount {Cells/mcL} to non-numeric Count Health System results) CD19 67 Below low normal CD19 [facility] {Cells/mcL} Health System CD3 736 Below low normal CD3 [facility] {Cells/mcL} Health System HelperCD4+ 346 Below low normal [place] CD4+ [facility] {Cells/mcL} Health System SuppressCD 373 Normal (applies Suppress CD8+ [facility] 8+ {Cells/mcL} to non-numeric Health System results) ID Date Data Source [id number] 02/17/2012 12:00:00 PM EDT [facility] [...] System Automated count ID Date Data Source [id number] 02/17/2012 12:00:00 PM EDT [facility] [...] urine test abnormalities ID Date Data Source [id number] 03/29/2012 11:59:38 AM EDSophia grey System Name Value Range Interpretation Description Data Sup porting Code Source(s) Document(s ) Color Yellow Normal (applies Color [facility] to non-numeric Health results) System Appearance of HAZY Normal (applies Urine [facility] Urine to non-numeric Appearance Health results) System Specific gravity 1.021 Normal (applies Urine Specific Mo [facility] of Urine to non-numeric [facility] results) System pH.. 6.0 Normal (applies [...] Health results) System ID Date Data Source [id number] 03/29/2012 11:59:38 AM EDT [facility] Name Value Range Interpretation Description Data Sup porting Code Source(s) Document(s ) Erythrocyte 5 Normal (applies Sedimentation [facility] sedimentation {mmlhr} to non-numeric Rate, Health rate by 2H results) Erythrocyte System Westergren method ID Date Data Source [id number] 03/29/2012 11:59:38 AM EDT [facility] [...] System Automated count ID Date Data Source [id number] 03/29/2012 11:59:38 AM EDT [facility] He que System Name [...] urine test abnormalities ID Date Data Source [id number] 03/29/2012 11:59:38 AM EDT [facility] Name Value Range Interpretation Description Data Sup porting Code Source(s) Document(s ) Creatine 120 Normal (applies Creatine [facility] kinase.MB {IU/L} to non-numeric Kinase, Serum Health Syst em [Mass/volume results) ] in Serum or Plasma ID Date Data Source [id number] 05/17/2012 11:30:00 AM EST [facility] Name Value Range Interpretation Code Description Data Lexy rce(s) Supporting Document(s ) FTA,Serum Reactive Abnormal (applies FTA, Serum [facility] to non-numeric Health System results) Reference Range: nonreactive ID Date Data Source [id number] 05/17/2012 11:30:00 AM EST [facility] Name Value Range Interpretation Description Data Sup porting Code Source(s) Document(s ) TotalB-CD1 7 {Percent} Normal (applies Total B-CD19 [facility] 9 to non-numeric Health System results) TotalT-CD3 69 {Percent} Normal (applies Total T-CD3 [facility] to non-numeric Health System results) T-HelperCD 35 {Percent} Normal (applies T-[place] CD4+ [facility] 4+ to non-numeric Health System results) TSuppresso 31 {Percent} Normal (applies T Suppressor [facility] rCD8+ to non-numeric CD8+ Health System results) [place]/Sup 1.13 {Ratio} Normal (applies [place]/Suppres Calderon patience pressor to non-numeric sor Health System results) Message DNR Test Normal (applies Message [facility] Performed to non-numeric Health System at: [facility] - results) [employer], [place] [address] Kelli Murdock M.D. LymphRel.C 854 Normal (applies Lymph Rel. [facility] ount {Cells/mcL} to non-numeric Count Health System results) CD19 64 Below low normal CD19 [facility] {Cells/mcL} Health System CD3 577 Below low normal CD3 [facility] {Cells/mcL} Health System HelperCD4+ 288 Below low normal [place] CD4+ [facility] {Cells/mcL} Health System SuppressCD 256 Normal (applies Suppress CD8+ [facility] 8+ {Cells/mcL} to non-numeric Health System results) ID Date Data Source [id number] 05/17/2012 11:30:00 AM EST [facility] [...] / 1:24 PM ID Date Data Source [id number] 05/17/2012 11:30:00 AM EST [facility] alth System Name Value Range [...] System Automated count ID Date Data Source [id number] 05/17/2012 11:30:00 AM EST [facility] [...] urine test abnormalities ID Date Data Source [id number] 03/12/2020 08:51:00 AM EDT [facility] Name Value Range Interpretation Description Data Sup porting Code Source(s) Document(s ) SARS [facility] coronavirus 2 RNA This lab was ordered by [facility] and reported by [facility]. ID Date Data Source [id number] 11/11/2019 08:23:00 PM EDT [facility] Single portable frontal chest radiograph History: Chest [...] at 2113Reported and signed by: Dylan Musa MDEnputnam county memorial hospital Physician ServicesCUMBERLAND [facility] [address] DYL[address] KEMP [phone] Signed:Dylan Musa, at 21:13 EDTTel , Servicesupport , [phone] Name Value Range Interpretation Code Description Data Lexy rce(s) Supporting Document(s ) ID Date Data Source [id number] 07/04/2019 10:34:00 PM [facility] PROCEDURE INFORMATION: Exam: XR Chest, 2 Views [...] Name Value Range Interpretation Code Description Data [facility] rce(s) Supporting Document(s ) Procedure Vital Signs ID Date Data Source UNK Name Value Range Interpretation Code Description Data Source(s) Body surface area 2 m2 2 m2 [facility] ore Derived from Health Syste m formula Body mass index 26.4 kg/m2 26.4 kg/m2 [facility] (BMI) [Ratio] Health Syst em Body weight 86.18 kg 86.18 kg [facility] Body height 180.34 cm 180.34 cm [facility] Body temperature 98.4 [degF] 0 - 200 Normal (applies to 98.4 [degF ] [facility] non-numeric results) [facility] Body temperature 36.8 Wanda 0 - 99.9 Normal (applies to 36.8 Wanda [facility] non-numeric results) [facility] System Diastolic blood 76 mm[Hg] 0 - 999 Normal (applies to 76 mm[Hg] M on[facility] pressure non-numeric results) [facility] System Systolic blood 121 mm[Hg] 0 - 999 Normal (applies to 121 mm[Hg] Mo n[facility]fi[facility] pressure non-numeric results) [facility] System Oxygen saturation 99 % 0 - 999 Normal (applies to 99 % [facility] in Arterial blood non-numeric results) Health System by Pulse oximetry Respiratory rate 16 0 - 999 Normal (applies to 16 [facility] non-numeric results) [facility] System Heart rate 89 0 - 999 Normal (applies to 89 [facility] non-numeric results) [facility] Diastolic blood 97 mm[Hg] 0 - 999 Above high normal 97 mm[Hg] [facility] Systolic blood 137 mm[Hg] 0 - 999 Normal (applies to 137 mm[Hg] [facility] non-numeric results) [facility] Respiratory rate 16 0 - 999 Normal (applies to 16 [facility] non-numeric results) [facility] Heart rate 89 0 - 999 Normal (applies to 89 [facility] non-numeric results) [facility] Body surface area 2 m2 2 m2 [facility] ore Derived from Health Syste m formula Body mass index 26.4 kg/m2 26.4 kg/m2 [facility] e (BMI) [Ratio] [facility] Syst em Body weight 86.18 kg 86.18 kg [facility] Body height 180.34 cm 180.34 cm [facility] Body temperature 97.9 [degF] 0 - 200 Normal (applies to 97.9 [degF ] [facility] non-numeric results) [facility] Body temperature 36.6 Wanda 0 - 99.9 Normal (applies to 36.6 Wanda [facility] non-numeric results) [facility] Oxygen saturation 100 % 0 - 999 Normal (applies to 100 % [facility] in Arterial blood non-numeric results) [facility] by Pulse oximetry Diastolic blood 84 mm[Hg] 0 - 999 Normal (applies to 84 mm[Hg] [facility] non-numeric results) [facility] Systolic blood 135 mm[Hg] 0 - 999 Normal (applies to 135 mm[Hg] [facility] non-numeric results) [facility] Oxygen saturation 100 % 0 - 999 Normal (applies to 100 % [facility] Arterial blood non-numeric results) [facility] by Pulse oximetry Respiratory rate 20 0 - 999 Above high [facility] 96 0 - 999 Normal (applies to 96 [facility] non-numeric results) [facility] Body surface area 2.1 m2 2.1 m2 [facility] Derived from [facility] formula Body mass index 27.8 kg/m2 27.8 kg/m2 [facility] (BMI) [Ratio] [facility] Body weight 90.71 kg 90.71 kg [facility] Body height 180.34 cm 180.34 cm [facility] Body temperature 98 [degF] 0 - 200 Normal (applies to 98 [degF] [facility] non-numeric results) [facility] Body temperature 36.6 Wanda 0 - 99.9 Normal (applies to 36.6 [place]anda [facility] non[facility]numeric results) [facility] Body surface area 2 m2 2 m2 [facility] Derived from [facility] formula Body mass index 26.2 kg/m2 26.2 kg/m2 [facility] (BMI) [Ratio] [facility] Body weight 85.27 kg 85.27 kg [facility] Body height 180.34 cm 180.34 cm [facility] Body temperature 98.4 [degF] 0 - 200 Normal (applies to 98.4 [degF ] [facility] non-numeric results) [facility] Body temperature 36.8 Wanda 0 - 99.9 Normal (applies to 36.8 Wanda [facility] non-numeric results) [facility] Diastolic blood 97 mm[Hg] 0 - 999 Above high normal 97 mm[Hg] [facility] Diastolic blood 83 mm[Hg] 0 - 999 Normal (applies to 83 mm[Hg] [facility] non-numeric results) [facility] Systolic blood 140 mm[Hg] 0 - [...] Normal (applies to 16 [facility] non-numeric results) [facility] Heart rate 98 0 - 999 Normal (applies to 98 [facility] non-numeric results) [facility] Diastolic blood 76 mm[Hg] 0 - 999 Normal (applies to 76 mm[Hg] [facility] non-numeric results) [facility] Systolic blood 128 mm[Hg] 0 - 999 Normal (applies to 128 mm[Hg] [facility] non-numeric results) [facility] Oxygen saturation 99 % 0 - 999 Normal (applies to 99 % [facility] in Arterial blood non-numeric results) [facility] by Pulse oximetry Respiratory rate 16 0 - 999 Normal (applies to 16 [facility] non-numeric results) [facility] Heart rate 89 0 - 999 Normal (applies to 89 [facility] non-numeric results) [facility] Body temperature 36.7 Wanda 0 - 99.9 Normal (applies to 36.7 Wanda [facility] non-numeric results) [facility] Body temperature 98.2 [degF] 0 - 200 Normal (applies to 98.2 [degF ] [facility] non-numeric results) [facility] Body surface area 2 m2 2 m2 [facility] ore Derived from Health Sy[facility] m formula Body mass index 26.7 kg/m2 26.7 kg/m2 [facility] (BMI) [Ratio] [facility] em Body weight 87.08 kg 87.08 kg [facility] Body height 180.34 cm 180.34 cm [facility] Patient Treatment Plan of Care Planned Activity Planned Date Details Description Data Source (s) emtricitabine/rilpivirine/t 01/29/2020 [facility] enofovir alafenamide 200 04:56:11 PM EDT System mg-25 mg-25 mg oral tablet Escitalopram 10 MG Oral 08/08/2019 [facility] Tablet 03:54:35 PM EST System Lorazepam 0.5 MG Oral 08/06/2019 [facility] Tablet [Ativan] 05:21:03 PM EST System emtricitabine/rilpivirine/t 07/06/2019 [facility] enofovir alafenamide 200 02:40:06 PM EST System mg-25 mg-25 mg oral tablet emtricitabine/rilpivirine/t 07/06/2019 [facility] enofovir alafenamide 200 02:40:06 PM EST System mg-25 mg-25 mg oral tablet Meclizine Hydrochloride 07/05/2019 [facility] Oral Tablet 12:45:25 AM EST System Meclizine Hydrochloride 07/05/2019 [facility] MG Oral Tablet 12:45:25 AM EST System emtricitabine/rilpivirine/t 01/15/2019 [facility] enofovir alafenamide 200 09:02:30 AM EDT System mg-25 mg-25 mg oral tablet emtricitabine 200 MG / 06/16/2018 [facility] Rilpivirine 25 MG / 05:15:33 PM EST Syste m Tenofovir disoproxil fumarate 300 MG Oral Tablet emtricitabine 200 MG / 06/16/2018 [facility] Rilpivirine 25 MG / 05:15:33 PM EST Syste m Tenofovir disoproxil fumarate 300 MG Oral Tablet valacyclovir 1000 MG Oral 12/14/2017 [facility] Tablet 04:36:37 PM EDT System Sulfamethoxazole 800 MG / 04/20/2017 [facility] Trimethoprim 160 MG Oral 10:53:51 AM EDT System Tablet
[2020-03-31] MEDS ORDERED: methylPREDNISolone NA SUCC 125 MG/2 ML VIAL IVPUSH ONE (09:00)
[2020-03-31] MEDS ORDERED: ACETAMINOPHEN 500 MG TABLET (FP) PO ONE (09:00)
[2020-03-31] MEDS ORDERED: DIPHENHYDRAMINE 50 MG in SODIUM CHLORIDE 50 ML IVPB ONE (09:00)
[2020-03-31] MEDS ORDERED: RITUXIMAB 1,000 MG in DEXTROSE 5%-WATER - 400 ML IVPB ONE (09:30)
[2020-03-31 16:00] VITALS: TEMP 98.7
[2020-03-31 16:07] VITALS: BP 132/79; PULSE 98
[2020-03-31] MEDS ORDERED: PORTA CATH FLUSH 10 ML IVPUSH ONE (16:07)
== END 2020-03-31 14:10 | disposition home or self-care (01) ==
LOC: JCHEMO 07:13
PROVIDERS: ATTEND Internal Medicine Rheumatology
DX: M33.92 Dermatopolymyositis, unspecified with myopathy (principal); B20 Human immunodeficiency virus [HIV] disease; I10 Essential (primary) hypertension
CPT/HCPCS: 96360; 96367; 96375; 96413; J9312

== ENCOUNTER 2021-01-09 08:22 | Day surgery (SDC) | payer OTHER ==
[2021-01-09] MEDS ORDERED: ACETAMINOPHEN 500 MG TABLET (FP) PO ONE (09:00)
[2021-01-09] MEDS ORDERED: DEXAMETHASONE SODIUM PHOSPHATE 20 MG, DIPHENHYDRAMINE 50 MG in SODIUM CHLORIDE 100 ML IVPB ONE (09:00)
[2021-01-09] MEDS ORDERED: RITUXIMAB-ABBS 1,000 MG in DEXTROSE 5%-WATER - 400 ML IVPB ONE (10:00)
[2021-01-09] MEDS ORDERED: DEXAMETHASONE SODIUM PHOSPHATE 10 MG in SODIUM CHLORIDE 50 ML IVPB ONE (11:45)
[2021-01-09] MEDS ORDERED: FAMOTIDINE 20 MG/50 ML IVPB 20 MG/50 ML MG IVPB ONE (12:00)
[2021-01-09] MEDS ORDERED: ACETAMINOPHEN 325 MG TABLET (FP) PO ONE (12:00)
[2021-01-09] MEDS ORDERED: DIPHENHYDRAMINE 25 MG in SODIUM CHLORIDE 50 ML IVPB ONE (13:00)
[2021-01-09 16:52] VITALS: BP 138/93; PULSE 89; TEMP 98.3
== END 2021-01-09 17:00 | disposition home or self-care (01) ==
LOC: JINFUSION 08:22
PROVIDERS: ATTEND Internal Medicine Rheumatology
PROC: 3E04305 Introduction of Other Antineoplastic into Central Vein, Percutaneous Approach (ICD-10-PCS; principal; 2021-01-09)
PROC: 3E043GC Introduction of Other Therapeutic Substance into Central Vein, Percutaneous Approach (ICD-10-PCS; 2021-01-09)
DX: M33.92 Dermatopolymyositis, unspecified with myopathy (principal)
CPT/HCPCS: 96365; 96375; 96413; 96415; Q5115

== ENCOUNTER 2021-01-23 17:26 | Day surgery (SDC) | payer OTHER ==
[~2021-01-23 17:26] MED LIST changes: +RITUXIMAB-ABBS 1,000 MG in DEXTROSE 5%-WATER - 400 ML IVPB ONE
[2021-01-23 17:31] VITALS: TEMP 98.2
[2021-01-23 17:36] VITALS: BP 141/91; PULSE 107
== END 2021-01-23 17:40 | disposition home or self-care (01) ==
LOC: JINFUSION 17:26
PROVIDERS: ATTEND Internal Medicine Rheumatology
DX: M33.92 Dermatopolymyositis, unspecified with myopathy (principal)
CPT/HCPCS: 96375; 96413; 96415; Q5115

== ENCOUNTER 2021-09-29 08:17 | Day surgery (SDC) | payer OTHER ==
[2021-09-29] MEDS ORDERED: DEXAMETHASONE SODIUM PHOSPHATE 20 MG, DIPHENHYDRAMINE 50 MG in SODIUM CHLORIDE 100 ML IVPB ONE (09:30)
[2021-09-29] MEDS ORDERED: ACETAMINOPHEN 500 MG TABLET (FP) PO ONE (09:30)
[2021-09-29] MEDS ORDERED: RITUXIMAB-ABBS 1,000 MG in DEXTROSE 5%-WATER - 400 ML IVPB ONE (10:00)
[2021-09-29 10:20] VITALS: TEMP 97.9
[2021-09-29] MEDS ORDERED: PORTA CATH FLUSH 10 ML IVPUSH PRN (10:20)
[2021-09-29 16:38] VITALS: BP 127/70; PULSE 105
== END 2021-09-29 15:00 | disposition home or self-care (01) ==
LOC: JCHEMO 08:17 → J7W 08:19 → JCHEMO 15:00
PROVIDERS: ATTEND Internal Medicine Rheumatology
DX: M33.92 Dermatopolymyositis, unspecified with myopathy (principal)
CPT/HCPCS: 96367; 96413; 96415; Q5115

== ENCOUNTER 2021-10-19 07:58 | Day surgery (SDC) | payer OTHER ==
[2021-10-19] MEDS ORDERED: SODIUM CHLORIDE 1,000 ML IV SCH (09:00)
[2021-10-19 09:15] LABS: BASO % 1.4 % (0-2.0); EOS % 4.6 % (0-4.5); HEMATOCRIT 42.4 % (35.4-49); MCH 27.2 pg (25.7-33.7); MEAN CELL VOLUME 82.5 fl (80-96); MEAN PLT VOLUME 8.8 fl (7.5-11.1); MONO % 15.1 % (3.8-10.2); NEUT % 58.9 % (42.8-82.8); PLATELET COUNT 204 10^3/uL (134-434); RBC 5.14 M/mm3 (4.00-5.60); RDW 13.4 % (11.9-15.9); WHITE BLOOD COUNT 5.3 K/mm3 (4.0-10.0)
[2021-10-19] MEDS ORDERED: DEXAMETHASONE SODIUM PHOSPHATE 20 MG, DIPHENHYDRAMINE 50 MG in SODIUM CHLORIDE 100 ML IVPB ONE (10:00)
[2021-10-19] MEDS ORDERED: ACETAMINOPHEN 500 MG TABLET (FP) PO ONE ×3 (10:00)
[2021-10-19] MEDS ORDERED: RITUXIMAB-ABBS 1,000 MG in DEXTROSE 5%-WATER - 400 ML IVPB ONE (10:30)
[2021-10-19 12:22] LABS: CALCIUM 8.8 mg/dL (8.5-10.1)
[2021-10-19 12:24] LABS: ALBUMIN 3.8 g/dl (3.4-5.0); BLOOD UREA NITROGEN 13.6 mg/dL (7-18)
[2021-10-19 12:28] LABS: BILIRUBIN,TOTAL 0.3 mg/dL (0.2-1); TOT PROT 6.9 g/dl (6.4-8.2)
[2021-10-19 16:27] VITALS: BP 116/78; PULSE 78; TEMP 98.4
[2021-10-19] MEDS ORDERED: PORTA CATH FLUSH 10 ML IVPUSH PRN (16:45)
== END 2021-10-19 15:15 | disposition home or self-care (01) ==
LOC: JCHEMO 07:58 → J7W 07:59 → JCHEMO 15:15
PROVIDERS: ATTEND Internal Medicine Rheumatology
DX: M33.92 Dermatopolymyositis, unspecified with myopathy (principal)
CPT/HCPCS: 36415; 80053; 85025; 96361; 96367; 96413; 96415; Q5115

== ENCOUNTER 2022-07-30 08:40 | Day surgery (SDC) | payer OTHER ==
[2022-07-30] MEDS ORDERED: diphenhydrAMINE HCL 25 MG CAPSULE (FP) PO ONE (09:00)
[2022-07-30] MEDS ORDERED: METHYLPREDNISOLONE NA SUCC 100 MG in SODIUM CHLORIDE 50 ML IVPB ONE (09:00)
[2022-07-30] MEDS ORDERED: ACETAMINOPHEN 500 MG TABLET (FP) PO ONE (09:00)
[2022-07-30] MEDS ORDERED: DIPHENHYDRAMINE 50 MG in SODIUM CHLORIDE 50 ML IVPB ONE (09:00)
[2022-07-30] MEDS: SODIUM CHLORIDE IVPB ONE ×2 (09:54→10:29)
[2022-07-30] MEDS: METHYLPREDNISOLONE NA SUCC IVPB ONE ×2 (09:54→10:29)
[2022-07-30] MEDS ORDERED: RITUXIMAB-ABBS 1,000 MG in DEXTROSE 5%-WATER - 400 ML IVPB ONE (10:00)
[2022-07-30] MEDS ORDERED: DEXAMETHASONE SOD PHOSPHATE 10 MG/1 ML VIAL ONE (10:26)
[2022-07-30] MEDS ORDERED: DEXAMETHASONE INJECTION 20 MG in SODIUM CHLORIDE 50 ML IVPUSH ONE (10:30)
[2022-07-30] MEDS ORDERED: DEXAMETHASONE INJECTION 20 MG in SODIUM CHLORIDE 50 ML IVPB ONE (10:30)
[2022-07-30 13:15] VITALS: RESP 18; TEMP 98.6
[2022-07-30] MEDS ORDERED: PORTA CATH FLUSH 10 ML IVPUSH PRN (13:15)
[2022-07-30 15:01] VITALS: BP 126/73; PULSE 103
== END 2022-07-30 15:20 | disposition home or self-care (01) ==
LOC: JCHEMO 08:40 → J7W 08:40 → JCHEMO 15:20
PROVIDERS: ATTEND Internal Medicine Rheumatology
DX: M33.92 Dermatopolymyositis, unspecified with myopathy (principal)
CPT/HCPCS: 96367; 96413; 96415; J1100; Q5115

== ENCOUNTER 2022-08-13 08:00 | Day surgery (SDC) | payer OTHER ==
[2022-08-13] MEDS ORDERED: DEXAMETHASONE SODIUM PHOSPHATE 20 MG, DIPHENHYDRAMINE 50 MG in SODIUM CHLORIDE 100 ML IVPB ONE ×2 (08:45→10:00)
[2022-08-13] MEDS ORDERED: ACETAMINOPHEN 500 MG TABLET (FP) PO ONE ×2 (08:45→10:00)
[2022-08-13] MEDS ORDERED: RITUXIMAB-ABBS 1,000 MG in DEXTROSE 5%-WATER - 400 ML IVPB ONE ×2 (08:45→10:30)
[2022-08-13 15:21] VITALS: BP 137/82; PULSE 96; RESP 18; TEMP 98.3
[2022-08-13] MEDS ORDERED: PORTA CATH FLUSH 10 ML IVPUSH PRN (15:28)
== END 2022-08-13 13:50 | disposition home or self-care (01) ==
LOC: JINFUSION 08:00 → J7W 08:01 → JINFUSION 13:50
PROVIDERS: ATTEND Internal Medicine Rheumatology
DX: M33.92 Dermatopolymyositis, unspecified with myopathy (principal)
CPT/HCPCS: 96413; 96415; Q5115

== ENCOUNTER 2023-02-18 08:09 | Day surgery (SDC) | payer OTHER ==
[2023-02-18] MEDS ORDERED: ACETAMINOPHEN 500 MG TABLET (FP) PO ONE (08:30)
[2023-02-18] MEDS ORDERED: DEXAMETHASONE SODIUM PHOSPHATE 20 MG, DIPHENHYDRAMINE 50 MG in SODIUM CHLORIDE 100 ML IVPB ONE (08:30)
[2023-02-18] MEDS ORDERED: RITUXIMAB-ABBS 1,000 MG in DEXTROSE 5%-WATER - 400 ML IVPB ONE (09:00)
[2023-02-18 19:08] VITALS: RESP 18
[2023-02-18] MEDS ORDERED: PORTA CATH FLUSH 10 ML IVPUSH PRN (19:08)
[2023-02-18 19:12] VITALS: BP 132/89; PULSE 102; TEMP 98.1
== END 2023-02-18 15:20 | disposition home or self-care (01) ==
LOC: JCHEMO 08:09 → J7W 08:15 → JCHEMO 15:20
PROVIDERS: ATTEND Internal Medicine Rheumatology
DX: M33.92 Dermatopolymyositis, unspecified with myopathy (principal)
CPT/HCPCS: 96367; 96413; 96415; Q5115